=== PATIENT | female | born 1935 | race Caucasian/White ===

== ENCOUNTER 2018-10-11 19:30 | Emergency (ER) | payer MEDICARE, BC ==
[~2018-10-11] VITALS: Ht 162.6 cm; Wt 102.1 kg
[~2018-10-11 19:30] MED LIST: AMLODIPINE BESYL5 MG PO; ATORVASTATIN CA20 MG PO; BACTRIM DS TAB1 EACH PO; DOXYCYCLINE HY100 MG PO; GLUCOVANCE 5-51 EACH PO; LASIX40 MG PO; LISINOPRIL10 MG PO; METOPROLOL TART50 MG PO; PLAVIX75 MG PO
[2018-10-11 21:04] LABS: BASOPHILS # (AUTO) 0.1 (0.0-0.1); BASOPHILS % 0.6 % (0.0-1.0); EOSINOPHILS # (AUTO) 0.2 (0.0-0.4); EOSINOPHILS % 2.5 % (0.0-6.0); HEMOGLOBIN 11.9 g/dL (12.0-16.0); LYMPHOCYTES # (AUTO) 2.3 (1.0-3.2); MEAN CORPUSCULAR HEMOGLOBIN 28.3 pg (28-32); MEAN CORPUSCULAR VOLUME 83.3 fL (81-99); MONOCYTES # (AUTO) 0.8 (0.2-0.8); MONOCYTES % 10.5 % (4.4-11.3); NEUTROPHILS # (AUTO) 4.3 (2.1-6.9); NEUTROPHILS % 55.8 % (38.7-80.0); PLATELET COUNT 233 x10e3/uL (140-360); RED CELL DISTRIBUTION WIDTH 16.9 % (11.7-14.4)
[2018-10-11 21:43] LABS: CLARITY,URINE HAZY (CLEAR); COLOR,URINE YELLOW (YELLOW)
[2018-10-11 21:44] LABS: BILIRUBIN,URINE NEGATIVE (NEGATIVE); KETONES,URINE NEGATIVE (NEGATIVE); LEUKOCYTE ESTERASE ,URINE 1+ (NEGATIVE); NITRITE,URINE NEGATIVE (NEGATIVE); PROTEIN,URINE DIPSTICK NEGATIVE (NEGATIVE); URINE UROBILINOGEN 0.2 mg/dL (0.2 - 1)
--- NOTE | 2018-10-11 21:47 | Diagnostic Imaging Report ---
EXAMINATION: CHEST 2 VIEWS INDICATION: ^ABD PAIN ^[id number] ^2054 ^Y COMPARISON: None available FINDINGS: PA and lateral views TUBES and LINES: Left chest wall single lead cardiac device in place. Distal tip projecting over the right ventricle. Right upper lobe nodular density, likely a calcified granuloma. LUNGS: Lungs are well inflated. Mild central vascular congestion. PLEURA: No pleural effusion or pneumothorax. HEART AND MEDIASTINUM: The cardiomediastinal silhouette is enlarged. Median sternotomy wires and mediastinal surgical clips. Aorta is tortuous. BONES AND SOFT TISSUES: No acute osseous lesion. Soft tissues are unremarkable. UPPER ABDOMEN: No free air under the diaphragm. IMPRESSION: Enlarged cardiomediastinal silhouette and mild central vascular congestion. Signed by: Dr. Santosh Muro MD on 10/11/2018 9:43 PM
[2018-10-11 21:55] LABS: BACTERIA,URINE FEW /HPF; EPITHELIAL CELLS,URINE MODERATE /LPF; RBC,URINE 0-5 /HPF (0-5); WBC,URINE (MAN) 0-5 /HPF (0-5)
[2018-10-11 23:30] LABS: ALANINE AMINOTRANSFERASE 27 IU/L (0-55); ALBUMIN 3.2 g/dL (3.5-5.0); ALBUMIN/GLOBULIN RATIO 0.9 (0.8-2.0); ALKALINE PHOSPHATASE 71 IU/L (40-150); ANION GAP 15.2 mmol/L (8-16); BLOOD UREA NITROGEN 32 mg/dL (7-26); BUN/CREATININE RATIO 25 (6-25); CARBON DIOXIDE 24 mmol/L (22-29); CHLORIDE 96 mmol/L (98-107); CREATINE KINASE 117 IU/L (29-168); CREATININE, SERUM 1.26 mg/dL (0.57-1.11); EST GLOMERULAR FILTRATION RATE 41 ML/MIN (60-); GLUCOSE 325 mg/dL (74-118); POTASSIUM 4.2 mmol/L (3.5-5.1); SODIUM 131 mmol/L (136-145)
[2018-10-12 00:05] VITALS: BP 108/52
== END 2018-10-12 00:19 | disposition home or self-care (01) ==
LOC: ER 19:30
DX: R10.30 Lower abdominal pain, unspecified (principal); K62.5 Hemorrhage of anus and rectum; I10 Essential (primary) hypertension; E11.9 Type 2 diabetes mellitus without complications; F03.90 Unspecified dementia, unspecified severity, without behavioral disturbance, psychotic disturbance, mood disturbance, and anxiety; I69.920 Aphasia following unspecified cerebrovascular disease; I25.2 Old myocardial infarction; Z95.5 Presence of coronary angioplasty implant and graft; Z95.810 Presence of automatic (implantable) cardiac defibrillator
CPT/HCPCS: 36415; 71046; 80053; 81001; 82550; 82553; 84484; 85025; 93005; 99284

== ENCOUNTER 2018-12-04 18:50 | Emergency (ER) | payer MEDICARE, BC ==
[~2018-12-04] VITALS: Ht 162.6 cm; Wt 102.1 kg
--- OUTSIDE RECORDS SUMMARY | 2018-12-04 18:55 | XMS REPORT ---
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 Active Problem Coronary artery disease involving [place] coronary artery of [place] heart without angina pectoris I25.10 Active Assessment Type 2 diabetes mellitus with other circulatory complication, 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 Problem 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 Problem Acute on chronic systolic congestive heart failure I50.23 Active Problem Gastrointestinal hemorrhage associated with chronic gastritis K29.51 Active Problem Cerebrovascular accident (CVA), unspecified mechanism I63.9 Active Problem HTN (hypertension) I10 Active Problem Peptic ulcer disease K27.9 Active Problem Vertigo R42 Active Medications Medication Code System Code Instructions Start Date End Date Status Dosage glipizide [facility] [address] 10 mg orally Twice a day Active 1 tab(s) Results No Known Results Summary Purpose [employer] Submission
--- OUTSIDE RECORDS SUMMARY | 2018-12-04 18:55 | XMS REPORT | Continuity of Care Document ---
Author Author [employer] Address Unknown Phone Unavailable Care Team Providers Care Ux Consultant Name Role Phone [employer] Information Exchange Unavailable Unavailable Problems Problem Status Onset Date Classification Date Reported Comments Source I63.9 CEREBRAL INFARCTION, UNSPECIFIED 06/22/2018 Diagnosis 07/11/2018 [facility]: [facility] [place] [facility] [place] [facility] R41.82 ALTERED MENTAL STATUS, UNSPECIFIED 06/22/2018 Diagnosis 07/11/2018 SN[facility]: [facility] [place] [facility] [place] [facility] I69.322 DYSARTHRIA FOLLOWING CEREBRAL INFARCTION 06/22/2018 Diagnosis 07/11/2018 [facility]: [facility] [place] [facility] [place] [facility] I10 ESSENTIAL HYPERTENSION 06/22/2018 Diagnosis 07/11/2018 [facility]: [facility] [place] [facility] [place] [facility] E11.9 TYPE 2 DIABETES MELLITUS WITHOUT COMPLICATIONS 06/22/2018 Diagnosis 07/11/2018 [facility]: [facility] [place] [facility] [place] [facility] M62.81 MUSCLE WEAKNESS 06/22/2018 Diagnosis 07/11/2018 [facility]: [facility] [place] [facility] [place] [facility] R26.89 OTHER ABNORMALITIES OF GAIT AND MOBILITY 06/22/2018 Diagnosis 07/11/2018 [facility]: [facility] [place] [facility] [place] [facility] R27.9 UNSPECIFIED LACK OF COORDINATION 06/22/2018 Diagnosis 07/11/2018 [facility]: [facility] [place] [facility] [place] [facility] R26.81 UNSTEADINESS ON FEET 06/22/2018 Diagnosis 07/11/2018 [facility]: [facility] [place] [facility] [place] [facility] R48.2 APRAXIA 06/22/2018 Diagnosis 07/11/2018 [facility]: [facility] [place] [facility] [place] [facility] 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 06/22/2018 Diagnosis 07/11/2018 [facility]: [facility] [place] [facility] I48.91 UNSPECIFIED ATRIAL FIBRILLATION 06/22/2018 Diagnosis 07/11/2018 [facility]: [facility] [place] [facility] [place] [facility] E78.5 HYPERLIPIDEMIA, UNSPECIFIED 06/22/2018 Diagnosis 07/11/2018 [facility]: [facility] [place] [facility] [place] [facility] I25.10 ATHEROSCLEROTIC HEART DISEASE OF [place] CORONARY ARTERY WITHOUT ANGINA PECTORIS 06/22/2018 Diagnosis 07/11/2018 [facility]: [facility] [place] [facility] R56.9 UNSPECIFIED CONVULSIONS 06/22/2018 Diagnosis 07/11/2018 [facility]: [facility] [place] [facility] Cardiac pacemaker in situ Active Problem 11/12/2018 [facility] Type 2 diabetes mellitus with other circulatory complication, without long-term current use of insulin Active Problem 11/12/2018 [facility] Coronary artery disease involving [place] coronary artery of [place] heart without angina pectoris Active Problem 11/12/2018 [facility] 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 Active Problem 11/12/2018 [facility] Acute on chronic systolic congestive heart failure Active Problem 11/12/2018 [facility] Gastrointestinal hemorrhage associated with chronic gastritis Active Problem 11/12/2018 [facility] Cerebrovascular accident , unspecified mechanism Active Problem 11/12/2018 [facility] HTN Active Problem 11/12/2018 [facility] Peptic ulcer disease Active Problem 11/12/2018 [facility] Vertigo Active Problem 11/12/2018 [facility] Type 2 diabetes mellitus without complications Active Problem 05/27/2017 [facility] Metabolic disorder, unspecified Active Problem 11/12/2018 [facility] A-fib Active Problem 11/12/2018 [facility] Essential hypertension Active Diagnosis 09/02/2018 [facility] Localized edema Active Problem 11/12/2018 [facility] Cough Active Diagnosis 03/19/2017 [facility] Diabetic polyneuropathy associated with type 2 diabetes mellitus Active Problem 11/12/2018 [facility] S/P cholecystectomy Active Problem 11/12/2018 [facility] Iron deficiency anemia, unspecified iron deficiency anemia type Active Problem 11/12/2018 [facility] Late effect of cerebrovascular accident Active Problem 11/12/2018 [facility] Flu vaccine need Active Problem 11/12/2018 [facility] Other obesity due to excess calories Active Problem 11/12/2018 [facility] Aphasia as late effect of cerebrovascular accident Active Problem 11/12/2018 [facility] Body mass index of 30.0-30.9 in adult Active Problem 11/12/2018 [facility] Constipated Active Problem 11/12/2018 [facility] Urinary frequency Active Diagnosis 09/24/2017 [facility] 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 Active Problem 11/12/2018 [facility] Acute cerebrovascular accident Active Diagnosis 01/08/2018 [facility] Iron deficiency anemia Active Diagnosis 01/08/2018 [facility] Acute constipation Active Diagnosis 07/02/2018 [facility] Expressive aphasia Active Diagnosis 09/02/2018 [facility] Chronic atrial fibrillation Active Diagnosis 09/02/2018 [facility] Type 2 diabetes mellitus with hyperglycemia Active Diagnosis 09/02/2018 [facility] Candidal intertrigo Active Diagnosis 06/18/2018 [facility] Bloody stool Active Diagnosis 06/18/2018 [facility] Cystitis Active Diagnosis 06/18/2018 [facility] Medications Medication Details Route Status Patient Instructions Ordering Provider Order Date Source spironolactone 1 tab(s) orally Active 25 mg orally once a day LATTHE 11/11/2018 [facility] senna 1 tab(s) orally Active 8.6 mg orally once a day (at bedtime) LATTHE 07/13/2018 [facility] Coumadin Tablet 5 MG Give 1 tablet by mouth one time a day for blood thinner Oral Active 07/10/2018 [facility]: [facility] [place] [facility] Insulin NPH (Human) (Isophane) Suspension 100 UNIT/ML Inject 10 unit subcutaneously one time a day for dm with dinner Subcutaneous Active 07/01/2018 [facility]: [facility] [place] [facility] Coumadin Tablet 4 MG Give 1 tablet by mouth one time a day for blood thinner Oral Active 06/29/2018 [facility]: [facility] [place] [facility] Carvedilol Tablet 3.125 MG Give 1 tablet by mouth every 12 hours for CAD Hold for SBP < 110 or HR < 60 Oral Active 06/26/2018 [facility]: [facility] [place] [facility] Fish Oil Capsule 1000 MG Give 1 capsule by mouth one time a day for supplement Oral Active 06/24/2018 [facility]: [facility] [place] [facility] Lyrica Capsule 25 MG Give 1 capsule by mouth one time a day for neuropathy Oral Active 06/24/2018 [facility]: [facility] [place] [facility] Coumadin Tablet 3 MG Give 1 tablet via G-Tube one time a day for blood thinner Oral Active 06/23/2018 [place] [facility] [place] [facility] Keppra Tablet 750 MG Give 1 tablet by mouth two times a day for seizure Oral Active 06/23/2018 [place] [facility] [place] [facility] Lyrica Capsule 25 MG Give 1 capsule by mouth one time a day for CVA Oral Inactive 06/23/2018 [place]: [facility] [place] [facility] FerrouSul Tablet 325 (65 Fe) MG Give 1 tablet by mouth one time a day for Anemia Oral Active 06/23/2018 [place] [facility] [place] [facility] Fish Oil Capsule 1000 MG Give 1 capsule by mouth one time a day for CVA Oral Inactive 06/23/2018 [place]: [facility] [place] [facility] Co Q-10 Capsule Give 1 capsule by mouth one time a day for Vitamin Oral Active 06/23/2018 SN[place]: [facility] [place] [facility] Triamterene-HCTZ Capsule 37.5-25 MG Give 1 capsule by mouth one time a day for HTN Oral Active 06/23/2018 [facility]: [facility] [place] [facility] Furosemide Tablet 40 MG Give 1 tablet by mouth one time a day for HTN Oral Active 06/23/2018 [place]: [facility] [place] [facility] Keppra Tablet 750 MG Give 1 tablet by mouth two times a day for CVA Oral Inactive 06/23/2018 [facility]: [facility] [place] [facility] HumuLIN N Suspension 100 UNIT/ML Inject 23 unit subcutaneously one time a day for Diabetes Subcutaneous Active 06/23/2018 [facility]: [facility] [place] [facility] Carvedilol Tablet 3.125 MG Give 1 tablet by mouth every 12 hours for CAD Oral Active 06/23/2018 [place]: [facility] [place] [facility] Insulin Lispro Solution Cartridge 100 UNIT/ML Inject as per sliding scale: if 0 - 150=0; 151 - 200=2; 201 - 250=4; 251 - 300=6; 301 - 350=8; 351 - 400=10; 401 - 999=12 GIVE 12 UNIT AND NOTIFY MD subcutaneously before meals and at bedtime for Diabetes Mellitus Subcutaneous Active 06/23/2018 SN[place]: [facility] [place] [facility] Atorvastatin Calcium Tablet 40 MG Give 1 tablet by mouth at bedtime for Cholesterol Oral Active 06/23/2018 SNF: [facility] Pantoprazole Sodium Tablet Delayed Release 40 MG Give 1 tablet by mouth every 48 hours for GERD Oral Active 06/23/2018 SNF: [facility] lisinopril 1 tab(s) orally [facility] 2[facility] cephalexin 1 cap(s) orally Active 500 mg orally every 12 hours LATTHE 06/10/2018 [facility] Lotrimin AF Cream 1 torsten applied topically Active 1% applied topically 2 times a day LATTHE 06/10/2018 [facility] lisinopril 1 tab(s) orally Active 5 mg orally once a day LATTHE 06/10/2018 [facility] fluconazole 1 tab(s) orally Active 150 mg orally once LATTHE 06/10/2018 [facility] glipizide 1 tab(s) orally Active 10 mg orally Twice a day LATTHE 01/10/2018 [facility] Colace 1 cap(s) orally Active sodium 100 mg orally Once daily LATTHE 01/05/2018 [facility] Coreg 1 tab(s) orally Active 3.125 mg orally 2 times a day LATTHE 09/17/2017 [facility] simethicone 1 tab(s) chewed Active 80 mg chewed 4 times a day (after meals and at bedtime) LATTHE 09/17/2017 [facility] Warfarin Sodium Take one half orally Active 1 mg orally along with the 6 mg tablet once a day for LATTHE 07/02/2017 [facility] furosemide 1 tab(s) orally Active 20 mg orally once a day LATTHE 06/18/2017 [facility] gabapentin 1 cap(s) orally Active 300 mg orally Once at night LATTHE 06/18/2017 [facility] Coumadin 1 tab(s) orally Active 6 mg orally once a day LAT[facility] 04/17/2017 [facility] benzonatate 1 cap(s) orally Active 100 [facility] Warfarin Sodium 1 tab(s) orally Active 4 mg orally once a day LATTHE 02/06/2017 [facility] hydrochlorothiazide-triamterene 1 cap(s) orally Active 25 mg- 37.5 mg orally once a day LATTHE 01/15/2017 [facility] Coumadin 1 tab(s) orally Active 2 mg orally once a day LATTHE 01/15/2017 [facility] Xarelto 1 tab(s) orally Active 10 mg orally once a day LATTHE 11/18/2016 [facility] furosemide 1 tab(s) orally Active 20 mg orally once a day LATTHE 11/18/2016 [facility] Xarelto 1 tab(s) orally Active 10 mg orally once a day LAT[facility] 11/18/2016 [facility] furosemide 1 tab(s) orally Active 20 mg orally once a day LATTHE 11/18/2016 [facility] lisinopril 1 tab(s) orally Active 5 mg orally once a day LATTHE 10/28/2016 [facility] Humulin N 20 units subcutaneously Active human recombinant 100 units/mL subcutaneously Once daily LATTHE 10/28/2016 [facility] Humulin N 20 units subcutaneously Active human recombinant 100 units/mL subcutaneously Once daily LATTHE 10/28/2016 [facility] lisinopril 1 tab(s) orally Active 5 mg orally once a day LATTHE 10/28/2016 [facility] Levemir 20 units subcutaneously Active 100 units/mL subcutaneously Once daily LATTHE 09/30/2016 [facility] Januvia 1 tab(s) orally Active 100 mg orally once a day LATTHE 09/02/2016 [facility] Ultram 1 tab(s) orally Active 50 mg orally every 6 hours PRN LATTHE 07/15/2016 [facility] Ultram 1 tab(s) orally Active 50 mg orally every 6 hours PRN LATTHE 07/15/2016 [facility] furosemide 1 tab(s) orally Active 40 mg orally once a day LAT[facility] 06/24/2016 [facility] furosemide 1 tab(s) orally Active 40 mg orally once a day LATTHE 06/24/2016 [facility] Plavix 1 tab(s) orally No Longer Active 75 mg orally once a day LATTHE 06/24/2016 [facility] pantoprazole 1 tab(s) orally Active 40 mg orally once a day LAT[facility] 05/27/2016 [facility] pantoprazole 1 tab(s) orally Active 40 mg orally once a day [facility] 05/27/2016 [facility] furosemide 1 tab(s) orally No Longer Active 20 [facility] Eliquis 1 tab(s) orally Active 2.5 mg orally 2 times a day [facility] 04/24/2016 [facility] levetiracetam 1 tab(s) orally Active 500 mg orally 2 times a day [facility] 09/09/2014 [facility] levetiracetam 1 tab(s) orally Active 500 mg orally 2 times a day [facility] 09/09/2014 [facility] levothyroxine 1 tab(s) orally Active 25 mcg (0.025 mg) orally once a day [facility] 05/03/2014 [facility] levothyroxine 1 tab(s) orally Active 25 mcg (0.025 mg) orally once a day [facility] 05/03/2014 [facility] Eliquis 1 tab(s) orally Active 2.5 mg orally 2 times a day [facility] MiraLax 17 g orally Active - orally once a day [facility] ferrous fumarate 1 tab(s) orally Active 325 mg orally once a day [facility] glipizide 1 tab(s) orally Active 10 mg orally Twice a day [facility] atorvastatin 1 tab(s) orally Active 40 mg orally once a day (at bedtime) [facility] Co Q-10 1 cap(s) orally Active 100 mg orally once a day [facility] Lyrica 1 cap(s) orally Active 25 mg orally once a day [facility] Savaysa 1 tab(s) orally Active 30 mg orally once a day [facility] gabapentin 1 cap(s) orally Active 300 mg orally Once daily [facility] Januvia 1 tab(s) orally Active 50 mg orally once a day [facility] furosemide 1 tab(s) orally Active 20 mg orally once a day [facility] Coumadin 1 tab(s) orally Active 5 mg orally once a day [facility] atorvastatin 1 tab(s) orally Active 40 mg orally once a day (at bedtime) [facility] gabapentin 1 cap(s) orally Active 300 mg orally Once daily [facility] Eliquis 1 tab(s) orally Active 2.5 mg orally 2 times a day [facility] ferrous fumarate 1 tab(s) orally Active 325 mg orally once a day [facility] Lyrica 1 cap(s) orally Active 25 mg orally once a day [facility] Co Q-10 1 cap(s) orally Active 100 mg orally once a day [facility] furosemide 1 tab(s) orally Active 40 mg orally once a day [facility] glipizide 1 tab(s) orally Active 10 mg orally Twice a day [facility] MiraLax 17 g orally Active - orally once a day [facility] Coumadin 1 tab(s) orally Active 6 mg orally once a day [facility] Lyrica TAKE 1 CAPSULE BY MOUTH ONCE DAILY NA Active 25MG [facility] Humulin N INJECT 20 UNITS SUBCUTANEOUSLY ONCE DAILY NA Active 100U/ML [facility] levetiracetam 1 tab(s) orally Active 500 mg orally 2 times a day [facility] lisinopril 1 tab(s) orally Active 10 mg orally once a day [facility] Xarelto 1 tab(s) orally Active 15 mg orally once a day (in the evening) [facility] Fish Oil 1 cap(s) orally Active 1200 mg orally Once daily [facility] spironolactone 1 tab(s) orally Active 25 mg orally Once daily [facility] Fish Oil 1 cap(s) orally Active 1200 mg orally Once daily [facility] levetiracetam TAKE 1 TABLET BY MOUTH TWICE DAILY orally Active 750 mg orally 2 times a day [facility] triamterene/hctz 1 tab(s) orally Active 25 mg-37.5 mg orally once a day [facility] levetiracetam 1 tab(s) orally Active 750 mg orally 2 times a day [facility] Coumadin 1 tab(s) orally Active 4 mg orally once a day [facility] atorvastatin 1 tab(s) orally Active 40 mg orally once a day [facility] lisinopril 1 tab(s) orally Active 2.5 mg orally once a day [facility] triamterene/hctz TAKE 1 TABLET BY MOUTH ONCE DAILY NA Active 25 mg-37.5 mg [facility] Coumadin 1 tab(s) orally Active 6 mg orally once a day [facility] furosemide 1 tab(s) orally No Longer Active 40 mg orally once a day [facility] Plavix 1 tab(s) orally No Longer Active 75 mg orally once a day [facility] Allergies, Adverse Reactions, Alerts Substance Category Reaction Severity Reaction type Status Date Reported Comments Source Gabapentin 06/22/2018 [facility]: [facility] [place] [facility] [place] [facility] Metformin 06/22/2018 [facility]: [facility] [place] [facility] [place] [facility] Penicillins 06/22/2018 [facility]: [facility] [place] [facility] penicillin Adverse Reaction hives Adverse Reaction Active 08/26/2018 [facility] Immunizations Immunization Date Given Site Status Last Updated Comments Source [facility]FL[facility] MEDICARE 04/06/2018 [facility] 06/18/2017 completed [facility] MEDICARE 04/24/2016 completed [facility] Results Order Name Results Value Reference Range Date Interpretation Comments Source Blood sugar Blood sugar 172 07/11/2018 [facility]: [facility] [place] [facility] Blood sugar Blood sugar 172 07/11/2018 [facility]: [facility] [place] [facility] [place] [facility] Blood sugar Blood sugar 269 07/11/2018 [facility]: [facility] [place] [facility] Blood sugar Blood sugar 170 07/10/2018 [facility]: [facility] [place] [facility] Blood sugar Blood sugar 204 07/10/2018 [facility] [place] [facility] Blood sugar Blood sugar 183 07/10/2018 [facility] [place] [facility] Blood sugar Blood sugar 183 07/10/2018 [facility] [place] [facility] Blood sugar Blood sugar 168 07/10/2018 [facility] [place] [facility] [place] [facility] Blood sugar Blood sugar 160 07/09/2018 [facility] [place] [facility] Blood sugar Blood sugar 167 07/09/2018 [facility] [place] [facility] Blood sugar Blood sugar 137 07/09/2018 [facility] [place] [facility] Blood sugar Blood sugar 137 07/09/2018 [facility] [place] [facility] [place] [facility] Blood sugar Blood sugar 183 07/09/2018 [facility] [place] [facility] [place] [facility] Blood sugar Blood sugar 290 07/08/2018 [facility] [place] [facility] Blood sugar Blood sugar 175 07/08/2018 [facility] [place] [facility] [place] [facility] Blood sugar Blood sugar 139 07/08/2018 [facility] [place] [facility] [place] [facility] Blood sugar Blood sugar 215 07/08/2018 [facility] [place] [facility] [place] [facility] Blood sugar Blood sugar 192 07/07/2018 [facility] [place] [facility] [place] [facility] Blood sugar Blood sugar 148 07/07/2018 [facility] [place] [facility] [place] [facility] Blood sugar Blood sugar 119 07/07/2018 [facility] [place] [facility] [place] [facility] Blood sugar Blood sugar 119 07/07/2018 [facility] [place] [facility] [place] [facility] Blood sugar Blood sugar 251 07/07/2018 [facility] [place] [facility] [place] [facility] Blood sugar Blood sugar 212 07/06/2018 [facility] [place] [facility] [place] [facility] Blood sugar Blood sugar 224 07/06/2018 [facility] [place] [facility] [place] [facility] Blood sugar Blood sugar 129 07/06/2018 [facility] [place] [facility] Blood sugar Blood sugar 129 07/06/2018 [facility] [place] [facility] [place] [facility] Blood sugar Blood sugar 205 07/06/2018 [facility] [place] [facility] [place] [facility] Blood sugar Blood sugar 215 07/05/2018 [facility] [place] [facility] [place] [facility] Blood sugar Blood sugar 198 07/05/2018 [facility] [place] [facility] [place] [facility] Blood sugar Blood sugar 163 07/05/2018 [facility] [place] [facility] [place] [facility] Blood sugar Blood sugar 163 07/05/2018 [facility] [place] [facility] [place] [facility] Blood sugar Blood sugar 218 07/05/2018 [facility] [place] [facility] [place] [facility] Blood sugar Blood sugar 318 07/04/2018 [facility] [place] [facility] [place] [facility] Blood sugar Blood sugar 192 07/04/2018 [facility] [place] [facility] [place] [facility] Blood sugar Blood sugar 175 07/04/2018 [facility] [place] [facility] [place] [facility] Blood sugar Blood sugar 304 07/04/2018 [facility] [place] [facility] [place] [facility] Blood sugar Blood sugar 134 07/03/2018 [facility] [place] [facility] [place] [facility] Blood sugar Blood sugar 296 07/03/2018 [facility] [place] [facility] [place] [facility] Blood sugar Blood sugar 177 07/03/2018 [facility] [place] [facility] [place] [facility] Blood sugar Blood sugar 177 07/03/2018 [facility] [place] [facility] [place] [facility] Blood sugar Blood sugar 174 07/03/2018 [facility] [place] [facility] [place] [facility] Blood sugar Blood sugar 270 07/02/2018 [facility] [place] [facility] [place] [facility] Blood sugar Blood sugar 150 07/02/2018 [facility] [place] [facility] [place] [facility] Blood sugar Blood sugar 119 07/02/2018 [facility] [place] [facility] [place] [facility] Blood sugar Blood sugar 119 07/02/2018 [facility] [place] [facility] [place] [facility] Blood sugar Blood sugar 253 07/02/2018 [facility] [place] [facility] [place] [facility] Blood sugar Blood sugar 314 07/01/2018 [facility] [place] [facility] [place] [facility] Blood sugar Blood sugar 216 07/01/2018 [facility] [place] [facility] [place] [facility] Blood sugar Blood sugar 226 07/01/2018 [facility] [place] [facility] [place] [facility] Blood sugar Blood sugar 226 07/01/2018 [facility] [place] [facility] [place] [facility] Blood sugar Blood sugar 202 07/01/2018 [facility]: [facility] Blood sugar Blood sugar 325 06/30/2018 [facility]: [facility] Blood sugar Blood sugar 289 06/30/2018 [facility]: [facility] Blood sugar Blood sugar 219 06/30/2018 [facility]: [facility] Blood sugar Blood sugar 219 06/30/2018 [facility]: [facility] Blood sugar Blood sugar 217 06/30/2018 [facility]: [facility] Blood sugar Blood sugar 240 06[facility]29/2018 [facility]: [facility] Blood sugar Blood sugar 174 06/29/2018 [facility]: [facility] Blood sugar Blood sugar 218 06/29/2018 [facility]: [facility] Blood sugar Blood sugar 218 06/29/2018 [facility]: [facility] Blood sugar Blood sugar 249 06/29/2018 [facility]: [facility] Blood sugar Blood sugar 224 06/28/2018 [facility]: [facility] Blood sugar Blood sugar 275 06/28/2018 [facility]: [facility] Blood sugar Blood sugar 190 06/28/2018 [facility]: [facility] Blood sugar Blood sugar 205 06/28/2018 [facility]: [facility] Blood sugar Blood sugar 212 06/27/2018 [facility]: [facility] Blood sugar Blood sugar 238 06/27/2018 [facility]: [facility] Blood sugar Blood sugar 165 06/27/2018 [facility]: [facility] Blood sugar Blood sugar 165 06/27/2018 [facility]: [facility] Blood sugar Blood sugar 262 06/27/2018 [facility]: [facility] Blood sugar Blood sugar 232 06/26/2018 [facility]: [facility] Blood sugar Blood sugar 231 06/26/2018 [facility]: [facility] Blood sugar Blood sugar 192 06/26/2018 [facility]: [facility] Blood sugar Blood sugar 192 06/26/2018 [facility]: [facility] Blood sugar Blood sugar 243 06/25/2018 [facility]: [facility] Blood sugar Blood sugar 172 06/25/2018 [facility]: [facility] Blood sugar Blood sugar 188 06/25/2018 [facility]: [facility] Blood sugar Blood sugar 188 06/25/2018 [facility]: [facility] Blood sugar Blood sugar 240 06/25/2018 [facility]: [facility] Blood sugar Blood sugar 192 06/25/2018 [facility]: [facility] Blood sugar Blood sugar 285 06/24/2018 [facility]: [facility] Blood sugar Blood sugar 182 06/24/2018 [facility]: [facility] Blood sugar Blood sugar 182 06/24/2018 [facility]: [facility] Blood sugar Blood sugar 238 06/24/2018 [facility]: [facility] Blood sugar Blood sugar 313 06/23/2018 [facility]: [facility] Blood sugar Blood sugar 300 06/23/2018 [facility]: [facility] Blood sugar Blood sugar 198 06/23/2018 [facility]: [facility] Blood sugar Blood sugar 212 06/23/2018 [facility]: [facility] Pathology Reports No Data Provided for This Section Diagnostic Reports No Data Provided for This Section Consultation Notes No Data Provided for This Section Discharge Summaries No Data Provided for This Section History and Physicals No Data Provided for This Section Vital Signs Vital Sign Value Date Comments Source Weight 189.5 08/26/2018 [facility] Height 64 08/26/2018 [facility] Respitory Rate 20 08/26/2018 [facility] Diastolic (mm Hg) 77 08/26/2018 [facility] Systolic (mm Hg) 133 08/26/2018 [facility] Heart Rate 81 08/26/2018 [facility] Weight 190 07/20/2018 [facility] Height 64 07/20/2018 [facility] Respitory Rate 20 07/20/2018 [facility] Diastolic (mm Hg) 80 07/20/2018 [facility] Systolic (mm Hg) 146 07/20/2018 [facility] Heart Rate 82 07/20/2018 [facility] Systolic (mm Hg) 129 07/11/2018 [facility]: [facility] Diastolic (mm Hg) 60 07/11/2018 [facility]: [facility] Heart Rate 87 {beats}/min 07/11/2018 [facility]: [facility] Systolic (mm Hg) 122 07/11/2018 [facility]: [facility] Diastolic (mm Hg) 77 07/11/2018 [facility]: [facility] Heart Rate 90 {beats}/min 07/11/2018 [facility]: [facility] Systolic (mm Hg) 137 07/10/2018 [facility]: [facility] Diastolic (mm Hg) 67 07/10/2018 [facility]: [facility] Heart Rate 90 {beats}/min 07/10/2018 [facility]: [facility] Systolic (mm Hg) 131 07/10/2018 [facility]: [facility] Diastolic (mm Hg) 75 07/10/2018 [facility]: [facility] Heart Rate 75 {beats}/min 07/10/2018 [facility]: [facility] Systolic (mm Hg) 142 07/09/2018 [facility]: [facility] Diastolic (mm Hg) 83 07/09/2018 [facility]: [facility] Heart Rate 88 {beats}/min 07/09/2018 [facility]: [facility] Systolic (mm Hg) 115 07/09/2018 [facility]: [facility] Diastolic (mm Hg) 60 07/09/2018 [facility]: [facility] Heart Rate 75 {beats}/min 07/09/2018 [facility]: [facility] Systolic (mm Hg) 126 07/08/2018 [facility]: [facility] Diastolic (mm Hg) 67 07/08/2018 [facility]: [facility] Heart Rate 80 {beats}/min 07/08/2018 [facility]: [facility] Systolic (mm Hg) 105 07/07/2018 [facility]: [facility] Diastolic (mm Hg) 63 07/07/2018 [facility]: [facility] Heart Rate 78 {beats}/min 07/07/2018 [facility]: [facility] Systolic (mm Hg) 126 07/06/2018 [facility]: [facility] Diastolic (mm Hg) 74 07/06/2018 [facility]: [facility] Heart Rate 81 {beats}/min 07/06/2018 [facility]: [facility] Systolic (mm Hg) 129 07/06/2018 [facility]: [facility] Diastolic (mm Hg) 68 07/06/2018 [facility]: [facility] Heart Rate 84 {beats}/min 07/06/2018 [facility]: [facility] Systolic (mm Hg) 122 07/05/2018 [facility]: [facility] Diastolic (mm Hg) 65 07/05/2018 [facility]: [facility] Heart Rate 70 {beats}/min 07/05/2018 [facility]: [facility] Systolic (mm Hg) 129 07/05/2018 [facility]: [facility] Diastolic (mm Hg) 62 07/05/2018 [facility]: [facility] Heart Rate 78 {beats}/min 07/05/2018 [facility]: [facility] Systolic (mm Hg) 118 07/04/2018 [facility]: [facility] Diastolic (mm Hg) 89 07/04/2018 [facility]: [facility] Heart Rate 71 {beats}/min 07/04/2018 [facility]: [facility] Systolic (mm Hg) 132 07/03/2018 [facility]: [facility] Diastolic (mm Hg) 73 07/03/2018 [facility]: [facility] Heart Rate 84 {beats}/min 07/03/2018 [facility]: [facility] Systolic (mm Hg) 126 07/02/2018 [facility]: [facility] Diastolic (mm Hg) 68 07/02/2018 [facility]: [facility] Heart Rate 71 {beats}/min 07/02/2018 [facility]: [facility] Systolic (mm Hg) 122 07/02/2018 [facility]: [facility] Diastolic (mm Hg) 60 07/02/2018 [facility]: [facility] Heart Rate 73 {beats}/min 07/02/2018 [facility]: [facility] Systolic (mm Hg) 124 07/01/2018 [facility]: [facility] Diastolic (mm Hg) 74 07/01/2018 [facility]: [facility] Heart Rate 81 {beats}/min 07/01/2018 [facility]: [facility] Systolic (mm Hg) 118 07/01/2018 [facility]: [facility] Diastolic (mm Hg) 82 07/01/2018 [facility]: [facility] Heart Rate 83 {beats}/min 07/01/2018 [facility]: [facility] Systolic (mm Hg) 115 06/30/2018 [facility]: [facility] Diastolic (mm Hg) 81 06/30/2018 [facility]: [facility] Heart Rate 81 {beats}/min 06/30/2018 [facility]: [facility] Systolic (mm Hg) 117 06/29/2018 [facility]: [facility] Diastolic (mm Hg) 60 06/29/2018 [facility]: [facility] Heart Rate 62 {beats}/min 06/29/2018 [facility]: [facility] Systolic (mm Hg) 118 06/29/2018 [facility]: [facility] Diastolic (mm Hg) 61 06/29/2018 [facility]: [facility] Heart Rate 69 {beats}/min 06/29/2018 [facility]: [facility] Systolic (mm Hg) 128 06/28/2018 [facility]: [facility] Diastolic (mm Hg) 66 06/28/2018 [facility]: [facility] Heart Rate 76 {beats}/min 06/28/2018 [facility]: [facility] Systolic (mm Hg) 139 06/28/2018 [facility]: [facility] Diastolic (mm Hg) 77 06/28/2018 [facility]: [facility] Heart Rate 81 {beats}/min 06/28/2018 [facility]: [facility] Systolic (mm Hg) 128 06/27/2018 [facility]: [facility] Diastolic (mm Hg) 71 06/27/2018 [facility]: [facility] Heart Rate 84 {beats}/min 06/27/2018 [facility]: [facility] Systolic (mm Hg) 117 06/26/2018 [facility]: [facility] Diastolic (mm Hg) 65 06/26/2018 [facility]: [facility] Heart Rate 80 {beats}/min 06/26/2018 [facility]: [facility] Systolic (mm Hg) 116 06/26/2018 [facility]: [facility] Diastolic (mm Hg) 63 06/26/2018 [facility]: [facility] Heart Rate 75 {beats}/min 06/26/2018 [facility]: [facility] Systolic (mm Hg) 116 06/25/2018 [facility]: [facility] Diastolic (mm Hg) 88 06/25/2018 [facility]: [facility] Heart Rate 86 {beats}/min 06/25/2018 [facility]: [facility] Systolic (mm Hg) 124 06/25/2018 [facility]: [facility] Diastolic (mm Hg) 64 06/25/2018 [facility]: [facility] Heart Rate 61 {beats}/min 06/25/2018 [facility]: [facility] Systolic (mm Hg) 117 06/24/2018 [facility]: [facility] Diastolic (mm Hg) 62 06/24/2018 [facility]: [facility] Heart Rate 82 {beats}/min 06/24/2018 [facility]: [facility] Systolic (mm Hg) 156 06/24/2018 [facility]: [facility] Diastolic (mm Hg) 71 06/24/2018 [facility]: [facility] Heart Rate 77 {beats}/min 06/24/2018 [facility]: [facility] Weight 189.8 06/23/2018 [facility]: [facility] Height 63 06/23/2018 [facility]: [facility] Weight 198 06/10/2018 [facility] Height 64 06/10/2018 [facility] Respitory Rate 20 06/10/2018 [facility] Diastolic (mm Hg) 86 06/10/2018 [facility] Systolic (mm Hg) 160 06/10/2018 [facility] Heart Rate 95 06/10/2018 [facility] Weight 202 04/06/2018 [facility] Height 64 04/06/2018 [facility] Respitory Rate 20 04/06/2018 [facility] Diastolic (mm Hg) 94 04/06/2018 [facility] Systolic (mm Hg) 151 04/06/2018 [facility] Heart Rate 77 04/06/2018 [facility] Weight 203 01/16/2018 [facility] Height 64 01/16/2018 [facility] Respitory Rate 20 01/16/2018 [facility] Diastolic (mm Hg) 78 01/16/2018 [facility] Systolic (mm Hg) 144 01/16/2018 [facility] Heart Rate 84 01/16/2018 [facility] Weight 203 01/05/2018 [facility] Height 64 01/05/2018 [facility] Respitory Rate 20 01/05/2018 [facility] Diastolic (mm Hg) 78 01/05/2018 [facility] Systolic (mm Hg) 136 01/05/2018 [facility] Heart Rate 78 01/05/2018 [facility] Weight 198 12/08/2017 [facility] Height 64 12/08/2017 [facility] Respitory Rate 20 12/08/2017 [facility] Diastolic (mm Hg) 72 12/08/2017 [facility] Systolic (mm Hg) 121 12/08/2017 [facility] Heart Rate 91 12/08/2017 [facility] Heart Rate 95 09/17/2017 [facility] Height 64 09/17/2017 [facility] Respitory Rate 20 09/17/2017 [facility] Diastolic (mm Hg) 86 09/17/2017 [facility] Systolic (mm Hg) 156 09/17/2017 [facility] Weight 204.5 07/16/2017 [facility] Height 64 07/16/2017 [facility] Respitory Rate 20 07/16/2017 [facility] Diastolic (mm Hg) 83 07/16/2017 [facility] Systolic (mm Hg) 150 07/16/2017 [facility] Heart Rate 79 07/16/2017 [facility] Weight 207.5 06/18/2017 [facility] Height 64 06/18/2017 [facility] Respitory Rate 20 06/18/2017 [facility] Diastolic (mm Hg) 88 06/18/2017 [facility] Systolic (mm Hg) 156 06/18/2017 [facility] Heart Rate 92 06/18/2017 [facility] Weight 199 04/09/2017 [facility] Height 64 04/09/2017 [facility] Respitory Rate 20 04/09/2017 [facility] Diastolic (mm Hg) 74 04/09/2017 [facility] Systolic (mm Hg) 122 04/09/2017 [facility] Heart Rate 95 04/09/2017 [facility] Weight 196 03/12/2017 [facility] Height 64 03/12/2017 [facility] Respitory Rate 20 03/12/2017 [facility] Diastolic (mm Hg) 63 03/12/2017 [facility] Systolic (mm Hg) 109 03/12/2017 [facility] Heart Rate 93 03/12/2017 [facility] Height 64 01/15/2017 [facility] Weight 203 01/15/2017 [facility] Respitory Rate 20 01/15/2017 [facility] Diastolic (mm Hg) 76 01/15/2017 [facility] Systolic (mm Hg) 115 01/15/2017 [facility] Heart Rate 62 01/15/2017 [facility] Height 64 12/16/2016 [facility] Weight 202 12/16/2016 [facility] Respitory Rate 20 12/16/2016 [facility] Diastolic (mm Hg) 79 12/16/2016 [facility] Systolic (mm Hg) 139 12/16/2016 [facility] Heart Rate 91 12/16/2016 [facility] Height 64 11/18/2016 [facility] Weight 204 11/18/2016 [facility] Respitory Rate 20 11/18/2016 [facility] Diastolic (mm Hg) 72 11/18/2016 [facility] Systolic (mm Hg) 138 11/18/2016 [facility] Heart Rate 82 11/18/2016 [facility] Height 64 10/28/2016 [facility] Weight 202 10/28/2016 [facility] Respitory Rate 20 10/28/2016 [facility] Diastolic (mm Hg) 86 10/28/2016 [facility] Systolic (mm Hg) 162 10/28/2016 [facility] Heart Rate 84 10/28/2016 [facility] Height 64 10/09/2016 [facility] Weight 202 10/09/2016 [facility] Respitory Rate 20 10/09/2016 [facility] Diastolic (mm Hg) 74 10/09/2016 [facility] Systolic (mm Hg) 135 10/09/2016 [facility] Heart Rate 67 10/09/2016 [facility] Height 64 09/30/2016 [facility] Weight 202 09/30/2016 [facility] Respitory Rate 18 09/30/2016 [facility] Diastolic (mm Hg) 88 09/30/2016 [facility] Systolic (mm Hg) 132 09/30/2016 [facility] Heart Rate 70 09/30/2016 [facility] Height 64 09/02/2016 [facility] Weight 207 09/02/2016 [facility] Respitory Rate 18 09/02/2016 [facility] Diastolic (mm Hg) 72 09/02/2016 [facility] Systolic (mm Hg) 131 09/02/2016 [facility] Heart Rate 65 09/02/2016 [facility] Height 64 08/12/2016 [facility] Weight 202 08/12/2016 [facility] Respitory Rate 18 08/12/2016 [facility] Diastolic (mm Hg) 74 08/12/2016 [facility] Systolic (mm Hg) 122 08/12/2016 [facility] Heart Rate 65 08/12/2016 [facility] Height 64 06/24/2016 [facility] Weight 198 06/24/2016 [facility] Respitory Rate 18 06/24/2016 [facility] Diastolic (mm Hg) 72 06/24/2016 [facility] Systolic (mm Hg) 142 06/24/2016 [facility] Heart Rate 66 06/24/2016 [facility] Height 64 05/27/2016 [facility] Weight 203 05/27/2016 [facility] Respitory Rate 18 05/27/2016 [facility] Diastolic (mm Hg) 75 05/27/2016 [facility] Systolic (mm Hg) 177 05/27/2016 [facility] Heart Rate 62 05/27/2016 [facility] Height 64 04/29/2016 [facility] Weight 203 04/29/2016 [facility] Respitory Rate 18 04/29/2016 [facility] Diastolic (mm Hg) 76 04/29/2016 [facility] Systolic (mm Hg) 146 04/29/2016 [facility] Heart Rate 71 04/29/2016 [facility] Height 64 04/24/2016 [facility] Weight 200 04/24/2016 [facility] Respitory Rate 18 04/24/2016 [facility] Diastolic (mm Hg) 74 04/24/2016 [facility] Systolic (mm Hg) 160 04/24/2016 [facility] Heart Rate 65 04/24/2016 [facility] Encounters Location Location Details Encounter Type Encounter Number Reason For Visit Attending Provider ADM Date DC Date Status Source [facility] Unknown [id number] 04/24/2016 04/24/2016 [facility] Unknown [id number] 04/24/2016 04/24/2016 [facility] Unknown [id number] 04/24/2016 04/24/2016 [facility] Unknown [id number] 04/24/2016 04/24/2016 [facility] Unknown [id number] 04/24/2016 04/24/2016 [facility] [id number] 04/24/2016 04/24/2016 [facility] [id number] 04/29/2016 04/29/2016 [facility] [id number] 04/29/2016 04/29/2016 [facility] Unknown [id number] 04/29/2016 04/29/2016 [facility] Unknown [id number] 04/29/2016 04/29/2016 [facility] [id number] 04/29/2016 04/29/2016 [facility] [id number] 05/27/2016 05/27/2016 [facility] [id number] 05/27/2016 05/27/2016 [facility] [id number] 05/27/2016 05/27/2016 [facility] [id number] 05/27/2016 05/27/2016 [facility] [id number] 06/24/2016 06/24/2016 [facility] [id number] 06/24/2016 06/24/2016 [facility] [id number] 06/24/2016 06/24/2016 [facility] Message [id number] 07/15/2016 07/15/2016 [facility] Message [id number] 07/15/2016 07/15/2016 [facility] Unknown [id number] 08/12/2016 08/12/2016 [facility] Procedures No Data Provided for This Section Assessment and Plan No Data Provided for This Section Plan of Care No Data Provided for This Section Social History Social History Date Source Smoking StatusStart DateEnd Date Unknown if ever smoked 07/11/2018 13:44:46 07/10/2018 [facility] Social History ElementQualifiersDate Reported Tobacco Use: . Are you a: Never Smoker August 12, 2016 caffeine yes. caffeine Yes 2 cups per day August 12, 2016 alcohol no. alcohol No August 12, 2016 Children: . sons:1 daughters:1 August 12, 2016 Marital Status: . August 12, 2016 Exercise: no. Do you exercise? No August 12, 2016 08/12/2016 [facility] Family History Value Date Source QualifierDescriptionCommentDate Reported Maternal Grand Mother Comment not available Jun 24, 2016 Siblings Comment not available Jun 24, 2016 Children Comment not available Jun 24, 2016 Father Comment not available Jun 24, 2016 Maternal aunt Comment not available Jun 24, 2016 Mother Comment not available Jun 24, 2016 Paternal uncle Comment not available Jun 24, 2016 Maternal uncle Comment not available Jun 24, 2016 Paternal aunt Comment not available Jun 24, 2016 Other Comment not available Jun 24, 2016 Paternal Grand Mother Comment not available Jun 24, 2016 Maternal Grand Father Comment not available Jun 24, 2016 Paternal Grand Father Comment not available Jun 24, 2016 07/02/2016 [facility] Advance Directives Order Name Results Value Date Source Advance Directives Advance Directives Cardiopulmonary Resuscitation 07/11/2018 [place] [facility] [place] [facility] Functional Status No Data Provided for This Section
--- OUTSIDE RECORDS SUMMARY | 2018-12-04 18:55 | XMS REPORT ---
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 Active Problem Coronary artery disease involving [place] coronary artery of [place] heart without angina pectoris I25.10 Active Problem 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 Problem Acute on chronic systolic congestive heart failure I50.23 Active Problem Gastrointestinal hemorrhage associated with chronic gastritis K29.51 Active Problem Cerebrovascular accident (CVA), unspecified mechanism I63.9 Active Problem HTN (hypertension) I10 Active Problem Peptic ulcer disease K27.9 Active Problem Vertigo R42 Active Assessment 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 Assessment HTN (hypertension) I10 Active Assessment Type 2 diabetes mellitus with other circulatory complication, 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 Medications Medication Code System Code Instructions Start Date End [place] [address] 40 mg orally once a day May 27, 2016 Active 1 tab([place]) [place] [address] 325 mg orally once a day Active 1 tab(s) Ultram NDC 4526 50 mg orally every 6 hours PRN Jul 15, 2016 Active 1 tab(s) levothyroxine NDC 29605 25 mcg (0.025 mg) orally once a day May 03, 2014 Active 1 tab(s) Humulin N ND 6296 human recombinant 100 units/mL subcutaneously Once daily October 28, 2016 Active 20 [place] [address] 25 mg orally once a day Active 1 cap([place]) [place] [address] - orally once a day Active 17 g lisinopril NDC 30678 5 mg orally once a day October 28, 2016 Active 1 tab(s) Eliquis NDC 265398 2.5 mg orally 2 times a day Active 1 tab(s) glipizide NDC 08285 10 mg orally Twice a day Active 1 tab(s) Savaysa NDC 807501 30 mg orally once a day Active 1 tab(s) furosemide NDC 96553 40 mg orally once a day Jun 24, 2016 Active 1 tab(s) Co Q-10 NDC 452044 100 mg orally once a day Active 1 cap(s) atorvastatin NDC 69165 40 mg orally once a day (at bedtime) Active 1 tab(s) gabapentin NDC 13899 300 mg orally Once daily Active 1 cap(s) levetiracetam NDC 23343 500 mg orally 2 times a day September 09, 2014 Active 1 tab(s) Vital Signs Date/Time: October 28, 2016 BMI 34.67 Index Height 64 in Weight 202 lbs Respiratory Rate 20 /min Blood Pressure Diastolic 86 mm Hg Blood Pressure Systolic 162 mm Hg Cardiac Monitoring Heart Rate 84 /min Results No Known Results Summary Purpose eClinicalWorks Submission
--- OUTSIDE RECORDS SUMMARY | 2018-12-04 18:55 | XMS REPORT ---
Author Author REMA WOOD [facility] eClinicalWorks Address Unknown Phone Unavailable Care Team Providers Care Java Sdet Name Role Phone REMA WOOD Unavailable Allergies, Adverse Reactions, Alerts Substance Reaction Event Type penicillin hives Drug Allergy Problems Problem Type Condition Code Onset Dates Condition Status Problem Vertigo R42 Active Problem Acute on chronic systolic congestive heart failure I50.23 Active Problem Peptic ulcer disease K27.9 Active Problem Essential (primary) hypertension I10 Active Problem Metabolic disorder, unspecified E88.9 Active Problem A-fib I48.91 Active Problem Gastrointestinal hemorrhage associated with chronic gastritis K29.51 Active Problem 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 Problem Type 2 diabetes mellitus without complications E11.9 Active Problem Localized edema R60.0 Active Assessment Essential (primary) hypertension I10 Active Assessment Acute on chronic systolic congestive heart failure I50.23 Active Assessment Cough R05 Active Assessment Type 2 diabetes mellitus without complications E11.9 Active Problem Coronary artery disease involving [place] coronary artery of [place] heart without angina pectoris I25.10 Active Problem Type 2 diabetes mellitus with other circulatory complication, 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 Active Assessment A-fib I48.91 Active Problem HTN (hypertension) I10 Active Problem 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 Active Problem Cerebrovascular accident (CVA), unspecified mechanism I63.9 Active Medications Medication Code System Code Instructions Start Date End Date Status Dosage benzonatate ND 31753265093 100 mg orally 3 times a day Mar 12, 2017 Mar 17, 2017 Active 1 cap(s) Co Q-10 ND 36488383345 100 mg orally once a day Active 1 cap(s) Ultram ND 92446113818 50 mg orally every 6 hours PRN Jul 15, 2016 Active 1 tab(s) glipizide ND 58838528726 10 mg orally Twice a day Active 1 tab(s) levothyroxine [facility] 85409078605 25 mcg (0.025 mg) orally once a day May 03, 2014 Active 1 tab(s) furosemide [facility] 75975771404 40 mg orally once a day Inactive 1 tab(s) Humulin N [facility] 23453187842 human recombinant 100 units/mL subcutaneously Once daily October 28, 2016 Active 20 units Eliquis [facility] 67666747166 2.5 mg orally 2 times a day Inactive 1 tab(s) Warfarin Sodium ND 36828268223 4 mg orally once a day Feb 06, 2017 Active 1 tab(s) Lyrica ND 64442654283 25 mg orally once a day Active 1 cap(s) atorvastatin [facility] 27786536039 40 mg orally once a day (at bedtime) Active 1 tab(s) gabapentin [facility] 17773897137 300 mg orally Once daily Active 1 cap(s) furosemide ND 26785385363 20 mg orally once a day Active 1 tab(s) Coumadin [facility] 28959309689 5 mg orally once a day Active 1 tab(s) ferrous fumarate [facility] 00101539064 325 mg orally once a day Active 1 tab(s) lisinopril ND 37604559334 5 mg orally once a day October 28, 2016 Active 1 tab(s) MiraLax [facility] 80358042419 - orally once a day Active 17 g pantoprazole ND 06458387243 40 mg orally once a day May 27, 2016 Active 1 tab(s) levetiracetam [facility] 73072408296 500 mg orally 2 times a day September 09, 2014 Active 1 tab(s) Vital Signs Date/Time: Mar 12, 2017 BMI 33.64 Index Weight 196 lbs Height 64 in Respiratory Rate 20 /min Blood Pressure Diastolic 63 mm Hg Blood Pressure Systolic 109 mm Hg Cardiac Monitoring Heart Rate 93 /min Results No Known Results Summary Purpose eClinicalWorks Submission
--- OUTSIDE RECORDS SUMMARY | 2018-12-04 18:55 | XMS REPORT ---
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 Problem Flu vaccine need Z23 Active Problem 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 Problem Constipated K59.00 Active Problem Iron deficiency anemia, unspecified iron deficiency anemia type D50.9 Active Problem Other obesity due to excess calories E66.09 Active Problem Body mass index (BMI) of 30.0-30.9 in adult Z68.30 Active Problem Coronary artery disease involving [place] coronary artery of [place] heart without angina pectoris I25.10 Active Problem HTN (hypertension) I10 Active Problem Type 2 diabetes mellitus with other circulatory complication, 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 Active Problem Cerebrovascular accident (CVA), unspecified mechanism I63.9 Active Problem Peptic ulcer disease K27.9 Active Problem 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
--- OUTSIDE RECORDS SUMMARY | 2018-12-04 18:55 | XMS REPORT ---
Author Author REMA WOOD [facility] eClinicalWorks Address Unknown Phone Unavailable Care Team Providers Care Manager International Name Role Phone REMA WOOD Unavailable Allergies, [...] systolic congestive heart failure I50.23 Active Assessment Type 2 diabetes mellitus without complications E11.9 Active Problem Coronary artery disease involving [place] coronary artery of [place] heart without angina pectoris I25.10 Active Problem Type 2 diabetes mellitus with other circulatory complication, 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 Active Assessment A-fib I48.91 Active Problem HTN (hypertension) I10 Active Problem 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 Active Problem Cerebrovascular accident (CVA), unspecified mechanism I63.9 Active Medications Medication Code System Code Instructions Start Date End Date Status Dosage furosemide [facility] 50358835198 20 mg orally once a day Active 1 tab(s) Coumadin ND 24209753326 5 mg orally once a day Active 1 tab(s) lisinopril [facility] 61394956041 5 mg orally once a day October 28, 2016 Active 1 tab(s) atorvastatin [facility] 54735778883 40 mg orally once a day (at bedtime) Active 1 tab(s) Humulin N [facility] 58223702344 human recombinant 100 units/mL subcutaneously Once daily October 28, 2016 Active 20 units gabapentin [facility] 89540097139 300 mg orally Once daily Active 1 cap(s) Eliquis ND 56458354677 2.5 mg orally 2 times a day Inactive 1 tab(s) levothyroxine [facility] 31257857449 25 mcg (0.025 mg) orally once a day May 03, 2014 Active 1 tab(s) ferrous fumarate ND 20447791761 325 mg orally once a day Active 1 tab(s) Ultram ND 40216913376 50 mg orally every 6 hours PRN Jul 15, 2016 Active 1 tab(s) pantoprazole ND 02998482818 40 mg orally once a day May 27, 2016 Active 1 tab(s) Warfarin Sodium ND 92434085227 4 mg orally once a day Feb 06, 2017 Active 1 tab(s) Lyrica ND 02468881669 25 mg orally once a day Active 1 cap(s) Co Q-10 ND 83187043443 100 mg orally once a day Active 1 cap(s) levetiracetam ND 25004213004 500 mg orally 2 times a day September 09, 2014 Active 1 tab(s) furosemide ND 46180751247 40 mg orally once a day Inactive 1 tab(s) glipizide [facility] 46797101760 10 mg orally Twice a day Active 1 tab(s) MiraLax [facility] 15296776774 - orally once a day Active 17 g Vital Signs Date/Time: Apr 09, 2017 BMI 34.15 Index Weight 199 lbs Height 64 in Respiratory Rate 20 /min Blood Pressure Diastolic 74 mm Hg Blood Pressure Systolic 122 mm Hg Cardiac Monitoring Heart Rate 95 /min Results No Known Results Summary Purpose eClinicalWorks Submission
--- OUTSIDE RECORDS SUMMARY | 2018-12-04 18:55 | XMS REPORT ---
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 Active Problem Coronary artery disease involving [place] coronary artery of [place] heart without angina pectoris I25.10 Active Assessment [...] Start Date [place] D[place] [address] 25 mg orally once a day Active 1 [place]) [place] [address] 25 mcg (0.025 mg) orally once a day May 03, 2014 Active 1 tab([place]) [place] [address] 40 mg orally once a day May 27, 2016 Active 1 tab([place]) [place] [address] 10 mg orally Twice a day Active 1 tab([place] [address] 40 mg orally once a day (at bedtime) Active 1 tab([place]) [place] [address] 325 mg orally once a day Active 1 [place] [address] - orally once a day Active 17 g Savaysa ND 776402 30 mg orally once a day Active 1 tab([place]) [place] [address] 100 units/mL subcutaneously Once daily September 30, 2016 Inactive [place] [address] 500 mg orally 2 times a day September 09, 2014 Active 1 tab(s) gabapentin NDC 99505 300 mg orally Once daily Active 1 cap(s) furosemide NDC 24737 40 mg orally once a day Jun 24, 2016 Active 1 tab(s) Ultram NDC 4526 50 mg orally every 6 hours PRN Jul 15, 2016 Active 1 tab(s) Januvia NDC 96746 100 mg orally once a day September 02, 2016 December 01, 2016 Inactive 1 tab(s) Eliquis NDC 272811 2.5 mg orally 2 times a day Active 1 tab(s) Co Q-10 NDC 743702 100 mg orally once a day Active 1 cap(s) Vital Signs Date/Time: October 09, 2016 BMI 34.67 Index Height 64 in Weight 202 lbs Respiratory Rate 20 /min Blood Pressure Diastolic 74 mm Hg Blood Pressure Systolic 135 mm Hg Cardiac Monitoring Heart Rate 67 /min Results No Known Results Summary Purpose eClinicalWorks Submission
--- OUTSIDE RECORDS SUMMARY | 2018-12-04 18:56 | XMS REPORT ---
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
--- OUTSIDE RECORDS SUMMARY | 2018-12-04 18:56 | XMS REPORT ---
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 Active Problem 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 Active Problem Gastrointestinal hemorrhage associated with chronic gastritis K29.51 Active Problem 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
--- OUTSIDE RECORDS SUMMARY | 2018-12-04 18:56 | XMS REPORT ---
Author Author REMA WOOD Organization eClinicalWorks Address Unknown Phone Unavailable Care Team Providers Care Entertainment Centre Manager Name Role Phone REMA WOOD CP Unavailable Allergies No Known Allergies Problems Problem Type Condition Code Onset Dates Condition Status Problem Vertigo R42 Active Problem Acute on chronic systolic congestive heart failure I50.23 Active Problem Peptic ulcer disease K27.9 Active Problem Type 2 diabetes mellitus without complications E11.9 Active Problem Metabolic disorder, unspecified E88.9 Active Problem A-fib I48.91 Active Problem Gastrointestinal hemorrhage associated with chronic gastritis K29.51 Active Problem 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 Problem Essential (primary) hypertension I10 Active Problem Localized edema R60.0 Active Problem Type 2 diabetes mellitus with other circulatory complication, 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 Active Problem Cerebrovascular accident (CVA), unspecified mechanism I63.9 Active Assessment Type 2 diabetes mellitus with other circulatory complication, 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 Problem Coronary artery disease involving [place] coronary artery of [place] heart without angina pectoris I25.10 Active Problem 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
--- OUTSIDE RECORDS SUMMARY | 2018-12-04 18:56 | XMS REPORT ---
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 [place] heart without angina pectoris I25.10 Active Problem Type 2 diabetes mellitus with other circulatory complication, 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 Active Assessment Acute on chronic systolic congestive heart failure I50.23 Active Problem HTN (hypertension) I10 Active Problem 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
--- OUTSIDE RECORDS SUMMARY | 2018-12-04 18:56 | XMS REPORT ---
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
--- OUTSIDE RECORDS SUMMARY | 2018-12-04 18:56 | XMS REPORT ---
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 Problem Type 2 diabetes mellitus with other circulatory complication, 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 Active Problem 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.30 Active Problem 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 Active Problem Flu vaccine need Z23 Active Problem Gastrointestinal hemorrhage associated with chronic gastritis K29.51 Active Problem Body mass index (BMI) of 30.0-30.9 in adult Z68.30 Active Problem Constipated K59.00 Active Problem 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 Problem Other obesity due to excess calories E66.09 Active Problem HTN (hypertension) I10 Active Problem Vertigo R42 Active Problem Cerebrovascular accident (CVA), unspecified mechanism I63.9 Active Problem Coronary artery disease involving [place] coronary artery of [place] heart without angina pectoris I25.10 Active Problem 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
--- OUTSIDE RECORDS SUMMARY | 2018-12-04 18:56 | XMS REPORT ---
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 Active Problem Gastrointestinal hemorrhage associated with chronic gastritis K29.51 Active Problem 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 Problem Localized edema R60.0 Active Problem Vertigo R42 Active Problem Cerebrovascular accident (CVA), unspecified mechanism I63.9 Active Problem Acute on chronic systolic congestive heart failure I50.23 Active Problem Peptic ulcer disease K27.9 Active Assessment 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 Assessment Coronary artery disease involving [place] coronary artery of [place] heart without angina pectoris I25.10 Active Assessment Cerebrovascular accident (CVA), unspecified mechanism I63.9 Active Assessment 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 Active Assessment Type 2 diabetes mellitus with other circulatory complication, 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 Assessment Localized edema R60.0 Active Assessment HTN (hypertension) I10 Active Problem 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 Active Medications Medication Code System Code Instructions Start Date End Date Status Dosage furosemide NDC 08324 20 mg orally once a day November 18, 2016 Active 1 tab(s) Co Q-10 NDC 527757 100 mg orally once a day Active 1 cap(s) Eliquis NDC 598197 2.5 mg orally 2 times a day Active 1 tab(s) gabapentin NDC 81960 300 mg orally Once daily Active 1 cap(s) Humulin N ND 6296 human recombinant 100 units/mL subcutaneously Once daily October 28, 2016 Active 20 units furosemide NDC 92282 40 mg orally once a day Jun 24, 2016 Active 1 tab(s) MiraLax NDC 88008 - orally once a day Active 17 g levothyroxine NDC 32969 25 mcg (0.025 mg) orally once a day May 03, 2014 Active 1 tab(s) levetiracetam NDC 16555 500 mg orally 2 times a day September 09, 2014 Active 1 tab(s) atorvastatin NDC 98880 40 mg orally once a day (at bedtime) Active 1 tab(s) pantoprazole NDC 78601 40 mg orally once a day May 27, 2016 Active 1 tab(s) glipizide NDC 34598 10 mg orally Twice a day Active 1 tab(s) lisinopril NDC 36027 5 mg orally once a day October 28, 2016 Active 1 tab(s) Ultram NDC 4526 50 mg orally every 6 hours PRN Jul 15, 2016 Active 1 tab(s) ferrous fumarate NDC 33890 325 mg orally once a day Active 1 tab(s) Savaysa NDC 426217 30 mg orally once a day Inactive 1 tab(s) Xarelto NDC 222338 10 mg orally once a day November 18, 2016 December 18, 2016 Active 1 tab(s) Lyrica NDC 64466 25 mg orally once a day Active 1 cap(s) Vital Signs Date/Time: November 18, 2016 BMI 35.01 Index Height 64 in Weight 204 lbs Respiratory Rate 20 /min Blood Pressure Diastolic 72 mm Hg Blood Pressure Systolic 138 mm Hg Cardiac Monitoring Heart Rate 82 /min Results No Known Results Summary Purpose eClinicalWorks Submission
--- OUTSIDE RECORDS SUMMARY | 2018-12-04 18:56 | XMS REPORT ---
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
--- OUTSIDE RECORDS SUMMARY | 2018-12-04 18:56 | XMS REPORT ---
Author Author REMA WOOD Organization eClinicalWorks Address Unknown Phone Unavailable Care Team Providers Care Event Host Name Role Phone REMA WOOD CP Unavailable Allergies, Adverse Reactions, Alerts Substance Reaction Event Type penicillin hives Drug Allergy Problems Problem Type Condition Code Onset Dates Condition Status Assessment Gastrointestinal hemorrhage associated with chronic gastritis K29.51 Active Assessment HTN (hypertension) I10 Active Assessment Expressive aphasia R47.01 Active Assessment Chronic atrial fibrillation I48.2 Active Assessment Essential hypertension I10 Active Assessment Coronary artery disease involving [place] coronary artery of [place] heart without angina pectoris I25.10 Active Assessment Type 2 diabetes mellitus with hyperglycemia E11.65 Active Problem A-fib I48.91 Active Assessment 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 Problem Metabolic disorder, unspecified E88.9 Active Problem Diabetic polyneuropathy associated with type 2 diabetes mellitus E11.42 Active Problem Iron deficiency anemia, unspecified iron deficiency anemia type D50.9 Active Problem S/P cholecystectomy Z90.49 Active Problem 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 Problem 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.30 Active Problem Type 2 diabetes mellitus with other circulatory complication, 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 Active Problem 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 Active Problem Gastrointestinal hemorrhage associated with chronic gastritis K29.51 Active Problem Flu vaccine need Z23 Active Problem Body mass index (BMI) of 30.0-30.9 in adult Z68.30 Active Problem Constipated K59.00 Active Problem 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 Problem Other obesity due to excess calories E66.09 Active Problem HTN (hypertension) I10 Active Problem Vertigo R42 Active Problem Cerebrovascular accident (CVA), unspecified mechanism I63.9 Active Problem Coronary artery disease involving [place] coronary artery of [place] heart without angina pectoris I25.10 Active Problem 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 Problem Localized edema R60.0 Active Problem Acute on chronic systolic congestive heart failure I50.23 Active Problem Peptic ulcer disease K27.9 Active Medications Medication Code System Code Instructions Start Date End Date Status Dosage Humulin N [facility] 05720755592 100U/ML Active INJECT 20 UNITS SUBCUTANEOUSLY ONCE DAILY lisinopril [facility] 10817840969 2.5 mg orally once a day Active 1 tab(s) Colace [facility] 48510639566 sodium 100 mg orally Once daily January 05, 2018 December 31, 2018 Active 1 cap(s) Humulin N [facility] 42900264384 human recombinant 100 units/mL subcutaneously Once daily Active 23 Humulin N [facility] 74450179120 100U/ML Active INJECT 20 UNITS SUBCUTANEOUSLY ONCE DAILY Co Q-10 [facility] 05067639187 100 mg orally once a day Active 1 cap(s) pantoprazole [facility] 51487075183 40 mg orally once a day May 27, 2016 Active 1 tab(s) furosemide [facility] 27075794824 40 mg orally once a day Active 1 tab(s) atorvastatin [facility] 49325682664 40 mg orally once a day Active 1 tab(s) levetiracetam [facility] 37046423721 750 mg orally 2 times a day Active TAKE 1 TABLET BY MOUTH TWICE DAILY Coreg [facility] 30237710080 3.125 mg orally 2 times a day September 17, 2017 Active 1 tab(s) triamterene/hctz [facility] 41369567873 25 mg-37.5 mg Active TAKE 1 TABLET BY MOUTH ONCE DAILY Lyrica [facility] 73970557470 25MG Active TAKE 1 CAPSULE BY MOUTH ONCE DAILY Fish Oil [facility] 99944268676 1200 mg orally Once daily Active 1 cap(s) Coumadin [facility] 07499891364 6 mg orally once a day Active 1 tab(s) Vital Signs Date/Time: August 26, 2018 BMI 32.52 Index Weight 189.5 lbs Height 64 in Respiratory Rate 20 /min Blood Pressure Diastolic 77 mm Hg Blood Pressure Systolic 133 mm Hg Cardiac Monitoring Heart Rate 81 /min Results No Known Results Summary Purpose eClinicalWorks Submission
--- OUTSIDE RECORDS SUMMARY | 2018-12-04 18:56 | XMS REPORT ---
Author Author REMA WOOD Organization eClinicalWorks Address Unknown Phone Unavailable Care Team Providers Care Animal Therapist Name Role Phone REMA WOOD Unavailable Allergies, Adverse Reactions, Alerts Substance Reaction Event Type penicillin hives Drug Allergy Problems Problem Type Condition Code Onset Dates Condition Status Assessment Expressive aphasia R47.01 Active Assessment Chronic atrial fibrillation I48.2 Active Assessment Essential hypertension I10 Active Assessment Coronary artery disease involving [place] coronary artery of [place] heart without angina pectoris I25.10 Active Problem Localized edema R60.0 Active Assessment Type 2 diabetes mellitus with hyperglycemia E11.65 Active Problem A-fib I48.91 Active Assessment 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 Problem Metabolic disorder, unspecified E88.9 Active Problem S/P cholecystectomy Z90.49 Active Problem Diabetic polyneuropathy associated with type 2 diabetes mellitus E11.42 Active Problem 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.30 Active Problem 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 Problem 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 [...] Z68.30 Active Problem Coronary artery disease involving [place] coronary artery of [place] heart without angina pectoris I25.10 Active Problem HTN (hypertension) I10 Active Problem Type 2 diabetes mellitus with other circulatory complication, 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 Active Problem Cerebrovascular accident (CVA), unspecified mechanism I63.9 Active Problem Peptic ulcer disease K27.9 Active Problem 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 Problem Vertigo R42 Active Problem Acute on chronic systolic congestive heart failure I50.23 Active Medications Medication Code System Code Instructions Start Date End Date Status Dosage lisinopril [facility] 63023316745 2.5 mg orally once a day Jun 10, 2018 Active 1 tab(s) Humulin N [facility] 19813881429 100U/ML Active INJECT 20 UNITS SUBCUTANEOUSLY ONCE DAILY pantoprazole [facility] 35566701946 40 mg orally once a day May 27, 2016 Active 1 tab(s) Humulin N [facility] 67844799688 human recombinant 100 units/mL subcutaneously Once daily Active 23 Fish Oil [facility] 01291315861 1200 mg orally Once daily Active 1 cap(s) triamterene/hctz [facility] 54319346177 25 mg-37.5 mg orally once a day Active 1 tab(s) furosemide [facility] 34805343802 40 mg orally once a day Active 1 tab(s) Colace [facility] 05101393644 sodium 100 mg orally Once daily January 05, 2018 December 31, 2018 Active 1 cap(s) Xarelto [facility] 01130515365 15 mg orally once a day (in the evening) Active 1 tab(s) Humulin N [facility] 92536108036 100U/ML Active INJECT 20 UNITS SUBCUTANEOUSLY ONCE DAILY Lyrica [facility] 07841894449 25MG Active TAKE 1 CAPSULE BY MOUTH ONCE DAILY Co Q-10 [facility] 52537235398 100 mg orally once a day Active 1 cap(s) Coreg [facility] 25256158178 3.125 mg orally 2 times a day September 17, 2017 Active 1 tab(s) levetiracetam [facility] 83750729543 750 mg orally 2 times a day Active 1 tab(s) senna [facility] 99603777007 8.6 mg orally once a day (at bedtime) Jul 13, 2018 August 12, 2018 Active 1 tab(s) Coumadin [facility] 66963691654 4 mg orally once a day Active 1 tab(s) atorvastatin [facility] 60001771656 40 mg orally once a day Active 1 tab(s) Vital Signs Date/Time: Jul 20, 2018 BMI 32.61 Index Weight 190 lbs Height 64 in Respiratory Rate 20 /min Blood Pressure Diastolic 80 mm Hg Blood Pressure Systolic 146 mm Hg Cardiac Monitoring Heart Rate 82 /min Results Name Result Date Reference Range Unit Abnormality Flag PROTHROMBIN TIME-INR ----INR 1.3 [id number] H ----PT 13.1 [id number] 9.0-11.5 sec H Summary Purpose eClinicalWorks Submission
--- OUTSIDE RECORDS SUMMARY | 2018-12-04 18:56 | XMS REPORT ---
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
--- OUTSIDE RECORDS SUMMARY | 2018-12-04 18:56 | XMS REPORT ---
Author Author REMA WOOD [facility] eClinicalWorks Address Unknown Phone Unavailable Care Team Providers Care Wood Pole Treater Name Role Phone REMA WOOD Unavailable Allergies, Adverse Reactions, Alerts Substance Reaction Event Type penicillin hives Drug Allergy Problems Problem Type Condition Code Onset Dates Condition Status Problem Coronary artery disease involving [place] coronary artery of [place] heart without angina pectoris I25.10 Active Problem [...] Problem Peptic ulcer disease K27.9 Active Assessment Cerebrovascular accident (CVA), unspecified mechanism I63.9 Active Assessment Type 2 diabetes mellitus with other circulatory complication, 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 Assessment Acute on chronic systolic congestive heart failure I50.23 Active Assessment HTN (hypertension) I10 Active Problem 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 Active Medications Medication Code System Code Instructions Start Date End Date Status Dosage Ultram ND 4526 50 mg orally every 6 hours PRN Jul 15, 2016 Active 1 tab(s) atorvastatin NDC 02906 40 mg orally once a day (at bedtime) Active 1 tab(s) Humulin N ND 6296 human recombinant 100 units/mL subcutaneously Once daily October 28, 2016 Active 20 units Eliquis ND 555422 2.5 mg orally 2 times a day Active 1 tab([place] [address] 10 mg orally Twice a day Active 1 tab([place]) [place] [address] 40 mg orally once a day May 27, 2016 Active 1 tab(s) furosemide NDC 72390 20 mg orally once a day November 18, 2016 Active 1 tab(s) lisinopril NDC 10718 5 mg orally once a day October 28, 2016 Active 1 tab(s) levetiracetam NDC 31546 500 mg orally 2 times a day September 09, 2014 Active 1 tab(s) furosemide NDC 65731 40 mg orally once a day Jun 24, 2016 Active 1 tab(s) MiraLax NDC 25997 - orally once a day Active 17 g Co Q-10 NDC 129504 100 mg orally once a day Active 1 cap(s) levothyroxine NDC 14559 25 mcg (0.025 mg) orally once a day May 03, 2014 Active 1 tab(s) Xarelto NDC 924949 10 mg orally once a day November 18, 2016 December 18, 2016 Active 1 tab(s) Lyrica NDC 28035 25 mg orally once a day Active 1 cap(s) gabapentin NDC 67021 300 mg orally Once daily Active 1 cap(s) ferrous fumarate NDC 64766 325 mg orally once a day Active 1 tab(s) Vital Signs Date/Time: December 16, 2016 BMI 34.67 Index Height 64 in Weight 202 lbs Respiratory Rate 20 /min Blood Pressure Diastolic 79 mm Hg Blood Pressure Systolic 139 mm Hg Cardiac Monitoring Heart Rate 91 /min Results No Known Results Summary Purpose eClinicalWorks Submission
--- OUTSIDE RECORDS SUMMARY | 2018-12-04 18:56 | XMS REPORT ---
Author Author REMA WOOD Organization eClinicalWorks Address Unknown Phone Unavailable Care Team Providers Care Tower Equipment Installer Name Role Phone REMA WOOD CP [...] R60.0 Active Problem Coronary artery disease involving [place] coronary artery of [place] heart without angina pectoris I25.10 Active Problem Type 2 diabetes mellitus with other circulatory complication, 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 Active Problem HTN (hypertension) I10 Active Problem 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 Active Problem Cerebrovascular accident (CVA), unspecified mechanism I63.9 Active Medications Medication Code System Code Instructions Start Date End Date Status Dosage Lyrica [facility] 38273119801 25 mg orally once a day Active 1 cap(s) Results No Known Results Summary Purpose eClinicalWorks Submission
--- OUTSIDE RECORDS SUMMARY | 2018-12-04 18:56 | XMS REPORT ---
Author Author REMA WOOD [facility] eClinicalWorks Address Unknown Phone Unavailable Care Team Providers Care Emergency Communications Operator Name Role Phone REMA WOOD Unavailable Allergies, [...] diabetes mellitus without complications E11.9 Active Assessment Metabolic disorder, unspecified E88.9 Active Problem Coronary artery disease involving [place] coronary artery of [place] heart without angina pectoris I25.10 Active Problem Type 2 diabetes mellitus with other circulatory complication, 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 Active Assessment A-fib I48.91 Active Problem HTN (hypertension) I10 Active Problem 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 Active Problem Cerebrovascular accident (CVA), unspecified mechanism I63.9 Active Medications Medication Code System Code Instructions Start Date End Date Status Dosage Co Q-10 [facility] 87515818872 100 mg orally once a day Active 1 cap(s) levothyroxine [facility] 37537430108 25 mcg (0.025 mg) orally once a day May 03, 2014 Active 1 tab(s) gabapentin [facility] 01903218878 300 mg orally Once daily Active 1 cap(s) hydrochlorothiazide-triamterene [facility] 44542648119 25 mg-37.5 mg orally once a day Jan 15, 2017 Feb 14, 2017 Active 1 cap(s) Xarelto [facility] 74200712494 10 mg orally once a day November 18, 2016 Jan 18, 2017 Active 1 tab(s) Ultram ND 56529623116 50 mg orally every 6 hours PRN Jul 15, 2016 Active 1 tab(s) Eliquis ND 39081825935 2.5 mg orally 2 times a day Inactive 1 tab(s) atorvastatin [facility] 28755759351 40 mg orally once a day (at bedtime) Active 1 tab(s) furosemide ND 80940602332 40 mg orally once a day Jun 24, 2016 Active 1 tab(s) furosemide ND 85577826484 20 mg orally once a day November 18, 2016 Inactive 1 tab(s) lisinopril ND 35289082149 5 mg orally once a day October 28, 2016 Active 1 tab(s) levetiracetam [facility] 13584026274 500 mg orally 2 times a day September 09, 2014 Active 1 tab(s) MiraLax [facility] 58487597156 - orally once a day Active 17 g pantoprazole [facility] 78818088263 40 mg orally once a day May 27, 2016 Active 1 tab(s) glipizide [facility] 97026317055 10 mg orally Twice a day Jan 10, 2018 Active 1 tab(s) Coumadin ND 99715223790 2 mg orally once a day Jan 15, 2017 Active 1 tab(s) ferrous fumarate [facility] 17914830624 325 mg orally once a day Active 1 tab(s) Lyrica [facility] 08935868621 25 mg orally once a day Active 1 cap(s) Humulin N [facility] 26899216898 human recombinant 100 units/mL subcutaneously Once daily October 28, 2016 Active 20 units Vital Signs Date/Time: Jan 15, 2017 BMI 34.84 Index Height 64 in Weight 203 lbs Respiratory Rate 20 /min Blood Pressure Diastolic 76 mm Hg Blood Pressure Systolic 115 mm Hg Cardiac Monitoring Heart Rate 62 /min Results No Known Results Summary Purpose eClinicalWorks Submission
--- OUTSIDE RECORDS SUMMARY | 2018-12-04 18:56 | XMS REPORT ---
Author Author REMA WOOD Organization eClinicalWorks Address Unknown Phone Unavailable Care Team Providers Care [place] Singer Name Role Phone REMA WOOD CP Unavailable [...] R60.0 Active Problem Coronary artery disease involving [place] coronary artery of [place] heart without angina pectoris I25.10 Active Problem Type 2 diabetes mellitus with other circulatory complication, 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 Active Problem HTN (hypertension) I10 Active Problem 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 Active Problem Cerebrovascular accident (CVA), unspecified mechanism I63.9 Active Medications Medication Code System Code Instructions Start Date End Date Status Dosage Warfarin Sodium [facility] 22560764491 4 mg orally once a day Feb 06, 2017 Active 1 tab(s) Results No Known Results Summary Purpose eClinicalWorks Submission
--- OUTSIDE RECORDS SUMMARY | 2018-12-04 18:56 | XMS REPORT ---
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
--- OUTSIDE RECORDS SUMMARY | 2018-12-04 18:57 | XMS REPORT ---
Author Author REMA WOOD [facility] eClinicalWorks Address Unknown Phone Unavailable Care Team Providers Care Bond Manager Name Role Phone REMA WOOD Unavailable Allergies, Adverse Reactions, Alerts Substance Reaction Event Type penicillin hives Drug Allergy Problems Problem Type Condition Code Onset Dates Condition Status Problem Cerebrovascular accident (CVA), unspecified mechanism I63.9 Active Problem Vertigo R42 Active Problem HTN (hypertension) I10 Active Problem A-fib I48.91 Active Assessment Diabetic polyneuropathy associated with type 2 diabetes mellitus E11.42 Active Problem Metabolic disorder, unspecified E88.9 Active Assessment Gastrointestinal hemorrhage associated with chronic gastritis K29.51 Active Problem Diabetic polyneuropathy associated with type 2 diabetes mellitus E11.42 Active Problem Peptic ulcer disease K27.9 Active Problem Acute on chronic systolic congestive heart failure I50.23 Active Problem Localized edema R60.0 Active Problem 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 Assessment Type 2 diabetes mellitus with other circulatory complication, 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 Assessment Cerebrovascular accident (CVA), unspecified mechanism I63.9 Active Assessment A-fib I48.91 Active Assessment HTN (hypertension) I10 Active Assessment Acute on chronic systolic congestive heart failure I50.23 Active Problem 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 Active Assessment 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 Active Problem Coronary artery disease involving [place] coronary artery of [place] heart without angina pectoris I25.10 Active Assessment Coronary artery disease involving [place] coronary artery of [place] heart without angina pectoris I25.10 Active Problem Type 2 diabetes mellitus with other circulatory complication, 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 Active Medications Medication Code System Code Instructions Start Date End Date Status Dosage furosemide [facility] 18450380509 40 mg orally once a day Active 1 tab(s) levothyroxine [facility] 47221396037 25 mcg (0.025 mg) orally once a day May 03, 2014 Active 1 tab(s) atorvastatin [facility] 11183486397 40 mg orally once a day (at bedtime) Active 1 tab(s) furosemide ND 86348250121 20 mg orally once a day Jun 18, 2017 Active 1 tab(s) Coumadin ND 67381167766 5 mg orally once a day Inactive 1 tab(s) MiraLax ND 41259491909 - orally once a day Active 17 g levetiracetam ND 74487374975 500 mg orally 2 times a day September 09, 2014 Active 1 tab(s) ferrous fumarate ND 28699555322 325 mg orally once a day Active 1 tab(s) Warfarin Sodium ND 59999504867 4 mg orally once a day Feb 06, 2017 Jun 18, 2017 Active 1 tab(s) Lyrica ND 03627719130 25 mg orally once a day Active 1 cap(s) glipizide [facility] 19659345105 10 mg orally Twice a day Active 1 tab(s) Coumadin ND 17082298984 6 mg orally once a day Apr 17, 2017 Active 1 tab(s) Co Q-10 ND 72224198431 100 mg orally once a day Active 1 cap(s) pantoprazole ND 12429525084 40 mg orally once a day May 27, 2016 Active 1 tab(s) gabapentin ND 70523581289 300 mg orally Once at night Jun 18, 2017 Active 1 cap(s) gabapentin [facility] 47287461869 300 mg orally Once daily Active 1 cap(s) lisinopril ND 43509644847 5 mg orally once a day October 28, 2016 Active 1 tab(s) Humulin N [facility] 65780241514 human recombinant 100 units/mL subcutaneously Once daily October 28, 2016 Active 20 units Ultram [facility] 90872510093 50 mg orally every 6 hours PRN Jul 15, 2016 Active 1 tab(s) Vital Signs Date/Time: Jun 18, 2017 BMI 35.61 Index Weight 207.5 lbs Height 64 in Respiratory Rate 20 /min Blood Pressure Diastolic 88 mm Hg Blood Pressure Systolic 156 mm Hg Cardiac Monitoring Heart Rate 92 /min Results No Known Results Immunizations Vaccine Administration Date [employer] MEDICARE Jun 18, 2017 Summary Purpose eClinicalWorks Submission
--- OUTSIDE RECORDS SUMMARY | 2018-12-04 18:57 | XMS REPORT ---
Author Author REMA WOOD [facility] eClinicalWorks Address Unknown Phone Unavailable Care Team Providers Care Cone Classifier Tender Name Role Phone REMA WOOD Unavailable Allergies, Adverse Reactions, Alerts Substance Reaction Event Type penicillin hives Drug Allergy Problems Problem Type Condition Code Onset Dates Condition Status Problem HTN (hypertension) I10 Active Problem Peptic ulcer disease K27.9 Active Problem Vertigo R42 Active Problem Diabetic polyneuropathy associated with type 2 diabetes mellitus E11.42 Active Assessment Urinary frequency R35.0 Active Problem Metabolic disorder, unspecified E88.9 Active Problem S/P cholecystectomy Z90.49 Active Problem 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 Problem Acute on chronic systolic congestive heart failure I50.23 Active Problem A-fib I48.91 Active Problem Localized edema R60.0 Active Assessment Type 2 diabetes mellitus with other circulatory complication, 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 Assessment HTN (hypertension) I10 Active Assessment A-fib I48.91 Active Assessment Acute on chronic systolic congestive heart failure I50.23 Active Problem 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 Active Problem Coronary artery disease involving [place] coronary artery of [place] heart without angina pectoris I25.10 Active Assessment Cerebrovascular accident (CVA), unspecified mechanism I63.9 Active Problem Type 2 diabetes mellitus with other circulatory complication, 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 Active Assessment S/P cholecystectomy Z90.49 Active Problem Cerebrovascular accident (CVA), unspecified mechanism I63.9 Active Medications Medication Code System Code Instructions Start Date End Date Status Dosage ferrous fumarate ND 29586842711 325 mg orally once a day Active 1 tab(s) gabapentin NDC 78978033073 300 mg orally Once at night Jun 18, 2017 Active 1 cap(s) Lyrica ND 52682711047 25MG Active TAKE 1 CAPSULE BY MOUTH ONCE DAILY furosemide ND 01442085751 40 mg orally once a day Active 1 tab(s) Coumadin ND 52162401271 6 mg orally once a day Inactive 1 tab(s) MiraLax [facility] 06668701785 - orally once a day Active [address] [facility] 11233745107 10 mg orally once a day Active 1 tab(s) levothyroxine [facility] 79060255196 25 mcg (0.025 mg) orally once a day May 03, 2014 Active 1 tab(s) atorvastatin [facility] 13195633222 40 mg orally once a day (at bedtime) Active 1 tab(s) Coreg [facility] 70244588310 3.125 mg orally 2 times a day September 17, 2017 Active 1 tab(s) Humulin N [facility] 98376100377 human recombinant 100 units/mL subcutaneously Once daily Active [address] [facility] 36213393083 10 mg orally Twice a day Active 1 tab(s) gabapentin [facility] 21047959838 300 mg orally Once daily Active 1 cap(s) pantoprazole [facility] 43167106876 40 mg orally once a day May 27, 2016 Active 1 tab(s) levetiracetam [facility] 67681121343 500 mg orally 2 times a day Active 1 tab(s) Co Q-10 [facility] 29636936123 100 mg orally once a day Active 1 cap(s) Warfarin Sodium [facility] 55249104769 1 mg orally along with the 6 mg tablet once a day for Jul 02, 2017 Active Take one half Ultram [facility] 14769434865 50 mg orally every 6 hours PRN Jul 15, 2016 Active 1 tab(s) simethicone [facility] 78432194403 80 mg chewed 4 times a day (after meals and at bedtime) September 17, 2017 Active 1 tab(s) Vital Signs Date/Time: September 17, 2017 Cardiac Monitoring Heart Rate 95 /min Weight unstable lbs Height 64 in Respiratory Rate 20 /min Blood Pressure Diastolic 86 mm Hg Blood Pressure Systolic 156 mm Hg Results Name Result Date Reference Range Unit Abnormality Flag CULTURE, URINE, ROUTINE ----CULTURE, URINE, ROUTINE SEE NOTE [id number] Summary Purpose eClinicalWorks Submission
--- OUTSIDE RECORDS SUMMARY | 2018-12-04 18:57 | XMS REPORT ---
Author Author REMA WOOD Organization eClinicalWorks Address Unknown Phone Unavailable Care Team Providers Care Second Time Worker Name Role Phone REMA WOOD CP Unavailable Allergies No Known Allergies Problems Problem Type Condition Code Onset Dates Condition Status Problem Cerebrovascular accident (CVA), unspecified mechanism I63.9 Active Problem Vertigo R42 Active Problem HTN (hypertension) I10 Active Problem A-fib I48.91 Active Problem Metabolic disorder, unspecified E88.9 Active Problem Diabetic polyneuropathy associated with type 2 diabetes mellitus E11.42 Active Problem Peptic ulcer disease K27.9 Active Problem Acute on chronic systolic congestive heart failure I50.23 Active Problem Localized edema R60.0 Active Problem 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 Assessment Diabetic polyneuropathy associated with type 2 diabetes mellitus E11.42 Active Problem 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 Active Problem Coronary artery disease involving [place] coronary artery of [place] heart without angina pectoris I25.10 Active Problem Type 2 diabetes mellitus with other circulatory complication, 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 Active Medications Medication Code System Code Instructions Start Date End Date Status Dosage Lyrica [facility] 54187359172 25 mg orally once a day Active 1 cap(s) levothyroxine [facility] 07380175226 25 mcg (0.025 mg) orally once a day May 03, 2014 Active 1 tab(s) Results No Known Results Summary Purpose eClinicalWorks Submission
--- OUTSIDE RECORDS SUMMARY | 2018-12-04 18:57 | XMS REPORT ---
Author Author REMA WOOD Organization eClinicalWorks Address Unknown Phone Unavailable Care Team Providers Care Engine Test Cell Technician Name Role Phone REMA WOOD CP Unavailable [...] Date End Date Status Dosage Humulin N [facility] 77845083734 human recombinant 100 units/mL subcutaneously Once daily Active 20 units Results No Known Results Summary Purpose eClinicalWorks Submission
--- OUTSIDE RECORDS SUMMARY | 2018-12-04 18:57 | XMS REPORT ---
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
--- OUTSIDE RECORDS SUMMARY | 2018-12-04 18:57 | XMS REPORT ---
Author Author REMA WOOD Organization eClinicalWorks Address Unknown Phone Unavailable Care Team Providers Care Clinical Team Manager Name Role Phone REMA WOOD CP [...] Z95.0 Active Problem Coronary artery disease involving [place] coronary artery of [place] heart without angina pectoris I25.10 Active Problem Type 2 diabetes mellitus with other circulatory complication, 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 Active Medications Medication Code System Code Instructions Start Date End Date Status Dosage Warfarin Sodium [facility] 24545445999 1 mg orally along with the 6 mg tablet once a day for Jul 02, 2017 Aug 01, 2017 Active Take one half Results No Known Results Summary Purpose eClinicalWorks Submission
--- OUTSIDE RECORDS SUMMARY | 2018-12-04 18:57 | XMS REPORT ---
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 Problem Acute on chronic systolic congestive heart failure I50.23 Active Problem Iron deficiency anemia, unspecified iron deficiency anemia type D50.9 Active Problem S/P cholecystectomy Z90.49 Active Problem Constipated K59.00 Active Problem A-fib I48.91 Active Problem Localized edema R60.0 Active Problem Diabetic polyneuropathy associated with type 2 diabetes mellitus E11.42 Active Problem Metabolic disorder, unspecified E88.9 Active Assessment Diabetic polyneuropathy associated with type 2 diabetes mellitus E11.42 Active Problem Cerebrovascular accident (CVA), unspecified mechanism I63.9 Active Problem Coronary artery disease involving [place] coronary artery of [place] heart without angina pectoris I25.10 Active Problem 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 Active Problem HTN (hypertension) I10 Active Problem Type 2 diabetes mellitus with other circulatory complication, 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 Active Problem Vertigo R42 Active Medications Medication Code System Code Instructions Start Date End Date Status Dosage Lyrica [facility] 46031273857 25MG Active TAKE 1 CAPSULE BY MOUTH ONCE DAILY Results No Known Results Summary Purpose eClinicalWorks Submission
--- OUTSIDE RECORDS SUMMARY | 2018-12-04 18:57 | XMS REPORT ---
Author Author REMA WOOD Organization eClinicalWorks Address Unknown Phone Unavailable Care Team Providers Care Jewel Hole Rough Opener Name Role Phone REMA WOOD CP Unavailable [...] of cerebrovascular accident (CVA) I69.322 Active Assessment A-fib I48.91 Active Problem 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 Active Problem Coronary artery disease involving [place] coronary artery of [place] heart without angina pectoris I25.10 Active Assessment Diabetic polyneuropathy associated with type 2 diabetes mellitus E11.42 Active Problem Type 2 diabetes mellitus with other circulatory complication, 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 Active Medications Medication Code System Code Instructions Start Date End Date Status Dosage Coumadin [facility] 62369917113 6 mg orally once a day Active 1 tab(s) Warfarin Sodium [facility] 85460847434 1 mg orally along with the 6 mg tablet once a day for Jul 02, 2017 Active Take one half levothyroxine [facility] 04726501960 25 mcg (0.025 mg) orally once a day May 03, 2014 Active 1 tab(s) Lyrica [facility] 85958469535 25 mg orally once a day Active 1 cap(s) Results No Known Results Summary Purpose eClinicalWorks Submission
--- OUTSIDE RECORDS SUMMARY | 2018-12-04 18:57 | XMS REPORT ---
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 Active Problem Coronary artery disease involving [place] coronary artery of [place] heart without angina pectoris I25.10 Active Problem Type 2 diabetes mellitus with other circulatory complication, 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 Active Assessment Acute on chronic systolic congestive heart failure I50.23 Active Problem Cerebrovascular accident (CVA), unspecified mechanism I63.9 Active Medications Medication Code System Code Instructions Start Date End Date Status Dosage Coreg [facility] 87368701377 3.125 mg orally 2 times a day September 17, 2017 Active 1 tab(s) Results No Known Results Summary Purpose eClinicalWorks Submission
--- OUTSIDE RECORDS SUMMARY | 2018-12-04 18:57 | XMS REPORT ---
Author Author REMA WOOD [facility] eClinicalWorks Address Unknown Phone Unavailable Care Team Providers Care Toys And Games Hand Finisher Name Role Phone REMA WOOD Unavailable Allergies, Adverse Reactions, Alerts Substance Reaction Event Type penicillin hives Drug Allergy Problems Problem Type Condition Code Onset Dates Condition Status Problem Cerebrovascular accident (CVA), unspecified mechanism I63.9 Active Problem Vertigo R42 Active Problem HTN (hypertension) I10 Active Problem A-fib I48.91 Active Assessment Gastrointestinal hemorrhage associated with chronic gastritis K29.51 Active Problem Metabolic disorder, unspecified E88.9 Active [...] Z95.0 Active Problem Coronary artery disease involving [place] coronary artery of [place] heart without angina pectoris I25.10 Active Assessment Coronary artery disease involving [place] coronary artery of [place] heart without angina pectoris I25.10 Active Problem Type 2 diabetes mellitus with other circulatory complication, 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 Active Medications Medication Code System Code Instructions Start Date End Date Status Dosage Coumadin [facility] 18062259052 6 mg orally once a day Active 1 tab(s) Humulin N [facility] 20225124751 human recombinant 100 units/mL subcutaneously Once daily Active 20 units MiraLax [facility] 43504444653 - orally once a day Active 17 g levetiracetam [facility] 28956625657 500 mg orally 2 times a day Active 1 tab(s) Lyrica ND 27901153817 25 mg orally once a day Active 1 cap(s) gabapentin ND 25603368427 300 mg orally Once at night Jun 18, 2017 Active 1 cap(s) pantoprazole ND 36963524251 40 mg orally once a day May 27, 2016 Active 1 tab(s) ferrous fumarate ND 78253959417 325 mg orally once a day Active 1 tab(s) Ultram ND 42905809045 50 mg orally every 6 hours PRN Jul 15, 2016 Active 1 tab(s) Coumadin ND 76520374063 5 mg orally once a day Inactive 1 tab(s) glipizide ND 55556441055 10 mg orally Twice a day Active 1 tab(s) Warfarin Sodium ND 57199361199 1 mg orally along with the 6 mg tablet once a day for Jul 02, 2017 Aug 01, 2017 Active Take one half Co Q-10 [facility] 57426754969 100 mg orally once a day Active 1 cap(s) lisinopril [facility] 64298722479 10 mg orally once a day Active 1 tab(s) levothyroxine [facility] 90956410590 25 mcg (0.025 mg) orally once a day May 03, 2014 Active 1 tab(s) furosemide ND 02130620679 40 mg orally once a day Active 1 tab(s) atorvastatin [facility] 14336141474 40 mg orally once a day (at bedtime) Active 1 tab(s) gabapentin [facility] 57859095764 300 mg orally Once daily Active 1 cap(s) Vital Signs Date/Time: Jul 16, 2017 BMI 35.10 Index Weight 204.5 lbs Height 64 in Respiratory Rate 20 /min Blood Pressure Diastolic 83 mm Hg Blood Pressure Systolic 150 mm Hg Cardiac Monitoring Heart Rate 79 /min Results No Known Results Summary Purpose eClinicalWorks Submission
--- OUTSIDE RECORDS SUMMARY | 2018-12-04 18:57 | XMS REPORT ---
Author Author REMA WOOD [facility] eClinicalWorks Address Unknown Phone Unavailable Care Team Providers Care Weir Fisher Name Role Phone REMA WOOD Unavailable Allergies, [...] unspecified iron deficiency anemia type D50.9 Active Assessment A-fib I48.91 Active Problem S/P cholecystectomy Z90.49 Active Assessment Iron deficiency anemia, unspecified iron deficiency anemia type D50.9 Active Assessment Constipated K59.00 Active Problem Constipated K59.00 Active Problem A-fib I48.91 Active Problem Localized edema R60.0 Active Problem Diabetic polyneuropathy associated with type 2 diabetes mellitus E11.42 Active Problem Metabolic disorder, unspecified E88.9 Active Assessment Acute on chronic systolic congestive heart failure I50.23 Active Assessment Annual physical exam Z00.00 Active Assessment Type 2 diabetes mellitus with other circulatory complication, 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 Assessment Cerebrovascular accident (CVA), unspecified mechanism I63.9 Active Problem Cerebrovascular accident (CVA), unspecified mechanism I63.9 Active Problem Coronary artery disease involving [place] coronary artery of [place] heart without angina pectoris I25.10 Active Problem 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 Active Problem HTN (hypertension) I10 Active Assessment Diabetic polyneuropathy associated with type 2 diabetes mellitus E11.42 Active Problem Type 2 diabetes mellitus with other circulatory complication, 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 Active Problem Vertigo R42 Active Medications Medication Code System Code Instructions Start Date End Date Status Dosage furosemide ND 20056374009 40 mg orally once a day Active 1 tab(s) Lyrica ND 26378002114 25MG Active TAKE 1 CAPSULE BY MOUTH ONCE DAILY pantoprazole ND 01768280029 40 mg orally once a day May 27, 2016 Active 1 tab(s) levothyroxine [facility] 58311099967 25 mcg (0.025 mg) orally once a day May 03, 2014 Active 1 tab(s) Xarelto [facility] 32484680295 15 mg orally once a day (in the evening) Active 1 tab(s) levetiracetam [facility] 40861187434 500 mg orally 2 times a day Active 1 tab(s) Humulin N [facility] 98069304635 human recombinant 100 units/mL subcutaneously Once daily Active 23 Coreg [facility] 90115917033 3.125 mg orally 2 times a day September 17, 2017 Active 1 tab(s) ferrous fumarate ND 68155625027 325 mg orally once a day Inactive 1 tab(s) Warfarin Sodium [facility] 43878422309 1 mg orally along with the 6 mg tablet once a day for Jul 02, 2017 Active Take one half Fish Oil [facility] 50970960060 1200 mg orally Once daily Active 1 cap(s) Lyrica ND 17855866237 25MG Active TAKE 1 CAPSULE BY MOUTH ONCE DAILY atorvastatin [facility] 51961085373 40 mg orally once a day (at bedtime) Inactive 1 tab(s) Co Q-10 [facility] 79139886519 100 mg orally once a day Active 1 cap(s) simethicone [facility] 86440925909 80 mg chewed 4 times a day (after meals and at bedtime) September 17, 2017 Active 1 tab(s) Ultram ND 20978980550 50 mg orally every 6 hours PRN Jul 15, 2016 Active 1 tab(s) spironolactone ND 03831426360 25 mg orally Once daily Inactive 1 tab(s) MiraLax [facility] 83468788321 - orally once a day Inactive 17 g lisinopril [facility] 58776118170 10 mg orally once a day Active 1 tab(s) Vital Signs Date/Time: December 08, 2017 BMI 33.98 Index Weight 198 lbs Height 64 in Respiratory Rate 20 /min Blood Pressure Diastolic 72 mm Hg Blood Pressure Systolic 121 mm Hg Cardiac Monitoring Heart Rate 91 /min Results No Known Results Summary Purpose eClinicalWorks Submission
--- OUTSIDE RECORDS SUMMARY | 2018-12-04 18:57 | XMS REPORT ---
Author Author REMA WOOD Organization [employer] Address Unknown Phone Unavailable Care Team Providers Care Support Merchandiser Name Role Phone REMA WOOD CP Unavailable Allergies No Known Allergies Problems Problem Type Condition Code Onset Dates Condition Status Problem Vertigo R42 Active Problem Acute on chronic systolic congestive heart failure I50.23 Active Problem Peptic ulcer disease K27.9 Active Problem S/P cholecystectomy Z90.49 Active Problem Diabetic polyneuropathy associated with type 2 diabetes mellitus E11.42 Active Problem Iron deficiency anemia, unspecified iron deficiency anemia type D50.9 Active Problem Localized edema R60.0 Active Problem 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 Problem Metabolic disorder, unspecified E88.9 Active Problem A-fib I48.91 Active Problem Type 2 diabetes mellitus with other circulatory complication, 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 Active Problem Cerebrovascular accident (CVA), unspecified mechanism I63.9 Active Assessment Diabetic polyneuropathy associated with type 2 diabetes mellitus E11.42 Active Problem Coronary artery disease involving [place] coronary artery of [place] heart without angina pectoris I25.10 Active Problem 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 Active Problem HTN (hypertension) I10 Active Medications Medication Code System Code Instructions Start Date End Date Status Dosage Lyrica [facility] 22590994451 25MG Active TAKE 1 CAPSULE BY MOUTH ONCE DAILY Results No Known Results Summary Purpose eClinicalWorks Submission
--- OUTSIDE RECORDS SUMMARY | 2018-12-04 18:57 | XMS REPORT ---
Author Author REMA WOOD Organization [employer] Address Unknown Phone Unavailable Care Team Providers Care Director Of Quality Control Name Role Phone REMA WOOD CP Unavailable [...] Z68.30 Active Problem Coronary artery disease involving [place] coronary artery of [place] heart without angina pectoris I25.10 Active Problem [...] Instructions Start Date End Date Status Dosage levetiracetam [facility] 13817289937 750 mg Active TAKE 1 TABLET BY MOUTH TWICE DAILY Results No Known Results Summary Purpose eClinicalWorks Submission
--- OUTSIDE RECORDS SUMMARY | 2018-12-04 18:57 | XMS REPORT ---
Author Author REMA WOOD Organization [employer] Address Unknown Phone Unavailable Care Team Providers Care Touch Up Edger Name Role Phone REMA WOOD CP Unavailable Allergies No Known Allergies Problems Problem Type Condition Code Onset Dates Condition Status Problem A-fib I48.91 Active Problem Diabetic polyneuropathy associated with type 2 diabetes mellitus E11.42 Active Problem Metabolic disorder, unspecified E88.9 Active Problem 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.30 Active Problem Flu vaccine need Z23 Active Problem Other obesity due to excess calories E66.09 Active Assessment Diabetic polyneuropathy associated with type 2 diabetes mellitus E11.42 Active Problem 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 Problem Iron deficiency anemia, unspecified iron deficiency anemia type D50.9 Active Problem S/P cholecystectomy Z90.49 Active Problem Body mass index (BMI) of 30.0-30.9 in adult Z68.30 Active Problem Constipated K59.00 Active Problem Cerebrovascular accident (CVA), unspecified mechanism I63.9 Active Problem Coronary artery disease involving [place] coronary artery of [place] heart without angina pectoris I25.10 Active Problem 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 Active Problem Type 2 diabetes mellitus with other circulatory complication, 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 Active Problem Acute on chronic systolic congestive heart failure I50.23 Active Problem Peptic ulcer disease K27.9 Active Problem HTN (hypertension) I10 Active Problem 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
--- OUTSIDE RECORDS SUMMARY | 2018-12-04 18:58 | XMS REPORT ---
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
--- OUTSIDE RECORDS SUMMARY | 2018-12-04 18:58 | XMS REPORT ---
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 Problem Diabetic polyneuropathy associated with type 2 diabetes mellitus E11.42 Active Problem Metabolic disorder, unspecified E88.9 Active Problem Iron deficiency anemia, unspecified iron deficiency anemia type D50.9 Active Problem S/P cholecystectomy Z90.49 Active Problem 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 Active Problem Type 2 diabetes mellitus with other circulatory complication, 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 Active Problem HTN (hypertension) I10 Active Problem Vertigo R42 Active Problem Cerebrovascular accident (CVA), unspecified mechanism I63.9 Active Problem Peptic ulcer disease K27.9 Active Problem Coronary artery disease involving [place] coronary artery of [place] heart without angina pectoris I25.10 Active Problem Acute on chronic systolic congestive heart failure I50.23 Active Medications Medication Code System Code Instructions Start Date End Date Status Dosage Lyrica [facility] 15423994939 25MG Active TAKE 1 CAPSULE BY MOUTH ONCE DAILY Results No Known Results Summary Purpose eClinicalWorks Submission
--- OUTSIDE RECORDS SUMMARY | 2018-12-04 18:58 | XMS REPORT ---
Author Author REMA WOOD Organization [employer] Address Unknown Phone Unavailable Care Team Providers Care Ladle Car Operator Name Role Phone REMA WOOD CP [...] I63.9 Active Problem Coronary artery disease involving [place] coronary artery of [place] heart without angina pectoris I25.10 Active Problem [...] Instructions Start Date End Date Status Dosage senna [facility][NOTE 3] 59952083860 8.6 mg orally once a day (at bedtime) Jul 13, 2018 August 12, 2018 Active 1 tab(s) Results No Known Results Summary Purpose eClinicalWorks Submission
--- OUTSIDE RECORDS SUMMARY | 2018-12-04 18:58 | XMS REPORT ---
Author Author REMA WOOD Organization [employer] Address Unknown Phone Unavailable Care Team Providers Care Remarketing Manager Name Role Phone REMA WOOD Unavailable Allergies, Adverse Reactions, Alerts Substance Reaction Event Type penicillin hives Drug Allergy Encounters Encounter Location Date Unknown [facility] Apr 24, 2016 Unknown [facility] Apr 29, 2016 Unknown [facility] May 27, 2016 Problems Problem Type Condition ICD-9 Code Onset Dates Condition Status Assessment Peptic ulcer disease K27.9 Active Problem 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 Active Assessment Acute on chronic systolic congestive heart failure I50.23 Active Problem Peptic ulcer disease K27.9 Active Problem Vertigo R42 Active Problem Acute on chronic systolic congestive heart failure I50.23 Active Problem Type 2 diabetes mellitus with other circulatory complication, 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 Active Problem Coronary artery disease involving [place] coronary artery of [place] heart without angina pectoris I25.10 Active Problem Cerebrovascular accident (CVA), unspecified mechanism I63.9 Active Problem HTN (hypertension) I10 Active Assessment Cerebrovascular accident (CVA), unspecified mechanism I63.9 Active Assessment HTN (hypertension) I10 Active Assessment Type 2 diabetes mellitus with other circulatory complication, 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 Assessment Coronary artery disease involving [place] coronary artery of [place] heart without angina pectoris I25.10 Active Medications Medication Code System Code Instructions Start Date End Date Status Dosage atorvastatin [facility] 32828 40 mg orally once a day (at bedtime) Active 1 tab(s) furosemide [facility] 86753 20 mg orally once a day May 27, 2016 Active 1 tab(s) levetiracetam [facility] 01938 500 mg orally 2 times a day September 09, 2014 Active 1 tab(s) pantoprazole [facility] 02313 40 mg orally once a day May 27, 2016 Active 1 tab(s) Eliquis [facility] 031243 2.5 mg orally 2 times a day Active 1 tab(s) MiraLax [facility] 09369 - orally once a day Active 17 g glipizide [facility] 56156 10 mg orally once a day Active 1 tab(s) levothyroxine [facility] 91686 25 mcg (0.025 mg) orally once a day May 03, 2014 Active 1 tab(s) Januvia [facility] 74037 50MG Active TAKE ONE TABLET BY MOUTH TWICE DAILY Co Q-10 [facility] 942559 100 mg orally once a day Active 1 cap(s) Social History Social History Element Qualifiers Date Reported Tobacco Use: . Are you a: Never Smoker May 27, 2016 caffeine yes. caffeine Yes 2 cups per day May 27, 2016 alcohol no. alcohol No May 27, 2016 Children: . sons:1 daughters:1 May 27, 2016 Marital Status: . May 27, 2016 Exercise: no. Do you exercise? No May 27, 2016 Vital Signs Date/Time: May 27, 2016 Height 64 in Weight 203 lbs Respiratory Rate 18 /min Blood Pressure Diastolic 75 mm Hg Blood Pressure Systolic 177 mm Hg Cardiac Monitoring Heart Rate 62 /min Summary Purpose eClinicalWorks Submission
--- OUTSIDE RECORDS SUMMARY | 2018-12-04 18:58 | XMS REPORT ---
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 Problem HTN (hypertension) I10 Active Assessment HTN (hypertension) I10 Active Problem Vertigo R42 Active Assessment Cerebrovascular accident (CVA), unspecified mechanism I63.9 Active Problem Peptic ulcer disease K27.9 Active Problem 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 Problem Acute on chronic systolic congestive heart failure I50.23 Active Problem Iron deficiency anemia, unspecified iron deficiency anemia type D50.9 Active Problem S/P cholecystectomy Z90.49 Active Assessment Acute cerebrovascular accident I63.9 Active Assessment Iron deficiency anemia D50.9 Active Problem Constipated K59.00 Active Assessment Coronary artery disease involving [place] coronary artery of [place] heart without angina pectoris I25.10 Active Problem A-fib I48.91 Active Problem Localized edema R60.0 Active Problem Diabetic polyneuropathy associated with type 2 diabetes mellitus E11.42 Active Problem Metabolic disorder, unspecified E88.9 Active Assessment Acute constipation K59.00 Active Assessment A-fib I48.91 Active Assessment Acute on chronic systolic congestive heart failure I50.23 Active Assessment Diabetic polyneuropathy associated with type 2 diabetes mellitus E11.42 Active Problem Cerebrovascular accident (CVA), unspecified mechanism I63.9 Active Problem Coronary artery disease involving [place] coronary artery of [place] heart without angina pectoris I25.10 Active Problem 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 Active Problem Type 2 diabetes mellitus with other circulatory complication, 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 Active Medications Medication Code System Code Instructions Start Date End Date Status Dosage Humulin N [facility] 77212933769 human recombinant 100 units/mL subcutaneously Once daily Active 23 Fish Oil NDC 76511104008 1200 mg orally Once daily Active 1 cap(s) levetiracetam [facility] 46294559224 500 mg orally 2 times a day Active 1 tab(s) pantoprazole [facility] 70775364381 40 mg orally once a day May 27, 2016 Active 1 tab(s) Co Q-10 [facility] 53046394646 100 mg orally once a day Active 1 cap(s) Coreg [facility] 09476204456 3.125 mg orally 2 times a day September 17, 2017 Active 1 tab(s) Lyrica [facility] 03128126024 25MG Active TAKE 1 CAPSULE BY MOUTH ONCE DAILY furosemide ND 85799811192 40 mg orally once a day Active 1 tab(s) Colace [facility] 35890742655 sodium 100 mg orally Once daily January 05, 2018 December 31, 2018 Active 1 cap(s) Xarelto [facility] 35372364602 15 mg orally once a day (in the evening) Active 1 tab(s) Vital Signs Date/Time: January 05, 2018 BMI 34.84 Index Weight 203 lbs Height 64 in Respiratory Rate 20 /min Blood Pressure Diastolic 78 mm Hg Blood Pressure Systolic 136 mm Hg Cardiac Monitoring Heart Rate 78 /min Results No Known Results Summary Purpose eClinicalWorks Submission
--- OUTSIDE RECORDS SUMMARY | 2018-12-04 18:58 | XMS REPORT ---
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 Problem Iron deficiency anemia, unspecified iron deficiency anemia type D50.9 Active Problem S/P cholecystectomy Z90.49 Active Problem Body mass index (BMI) of 30.0-30.9 in adult Z68.30 Active Problem Constipated K59.00 Active Problem Cerebrovascular accident (CVA), unspecified mechanism I63.9 Active Problem Coronary artery disease involving [place] coronary artery of [place] heart without angina pectoris I25.10 Active Problem 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 Active Problem Type 2 diabetes mellitus with other circulatory complication, 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 Active Problem Acute on chronic systolic congestive heart failure I50.23 Active Problem Peptic ulcer disease K27.9 Active Assessment Flu vaccine need Z23 Active Problem HTN (hypertension) I10 Active Problem 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 66979442357 100U/ML Active INJECT 20 UNITS SUBCUTANEOUSLY ONCE DAILY Co Q-10 [facility] 14048745805 100 mg orally once a day Active 1 cap(s) levetiracetam [facility] 83656130105 500 mg orally 2 times a day Active 1 tab(s) Humulin N [facility] 54340604596 human recombinant 100 units/mL subcutaneously Once daily Active 23 Fish Oil [facility] 47791836997 1200 mg orally Once daily Active 1 cap(s) Xarelto [facility] 27834807427 15 mg orally once a day (in the evening) Active 1 tab(s) furosemide [facility] 73194342771 40 mg orally once a day Active 1 tab(s) Colace [facility] 87241982871 sodium 100 mg orally Once daily January 05, 2018 December 31, 2018 Active 1 cap(s) Coreg [facility] 58061684387 3.125 mg orally 2 times a day September 17, 2017 Active 1 tab(s) pantoprazole [facility] 16084609638 40 mg orally once a day May 27, 2016 Active 1 tab(s) Lyrica [facility] 45800901154 25MG Active TAKE 1 CAPSULE BY MOUTH ONCE DAILY Vital Signs Date/Time: Apr 06, 2018 BMI 34.67 Index Weight 202 lbs Height 64 in Respiratory Rate 20 /min Blood Pressure Diastolic 94 mm Hg Blood Pressure Systolic 151 mm Hg Cardiac Monitoring Heart Rate 77 /min Results No Known Results Immunizations Vaccine Administration Date [employer] Apr 06, 2018 Summary Purpose eClinicalWorks Submission
--- OUTSIDE RECORDS SUMMARY | 2018-12-04 18:58 | XMS REPORT ---
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 Assessment Bloody stool K92.1 Active Problem Localized edema R60.0 Active Assessment Type 2 diabetes mellitus with other circulatory complication, 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 Problem A-fib I48.91 Active Problem Diabetic polyneuropathy associated with type 2 diabetes mellitus E11.42 Active Problem Metabolic disorder, unspecified E88.9 Active Problem 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.30 Active Problem Other obesity due to excess calories E66.09 Active Problem Flu vaccine need Z23 Active Problem 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 Assessment Cystitis N30.90 Active Problem Iron deficiency anemia, unspecified iron deficiency anemia type D50.9 Active Problem S/P cholecystectomy Z90.49 Active Problem Body mass index (BMI) of 30.0-30.9 in adult Z68.30 Active Problem Constipated K59.00 Active Problem Cerebrovascular accident (CVA), unspecified mechanism I63.9 Active Problem Coronary artery disease involving [place] coronary artery of [place] heart without angina pectoris I25.10 Active Problem 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 Active Problem Type 2 diabetes mellitus with other circulatory complication, 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 Active Problem Acute on chronic systolic congestive heart failure I50.23 Active Problem Peptic ulcer disease K27.9 Active Problem HTN (hypertension) I10 Active Problem Vertigo R42 Active Medications Medication Code System Code Instructions Start Date End Date Status Dosage Humulin N [facility] [place] 26204913548 human recombinant 100 units/mL subcutaneously Once daily Active 23 units Fish Oil [facility] [place] 40197921149 1200 mg orally Once daily Active 1 cap(s) pantoprazole ND 78061175728 40 mg orally once a day May 27, 2016 Active 1 tab(s) Xarelto [facility] [place] 47264829919 15 mg orally once a day (in the evening) Active 1 tab(s) Colace [facility] [place] 48127882201 sodium 100 mg orally Once daily January 05, 2018 December 31, 2018 Active 1 cap(s) Co Q-10 [facility] [place] 16016760287 100 mg orally once a day Active 1 cap(s) furosemide ND 56297914740 40 mg orally once a day Active 1 tab(s) levetiracetam ND 71438493923 500 mg orally 2 times a day Active 1 tab(s) cephalexin [facility] [place] 27994384450 500 mg orally every 12 hours Jun 10, 2018 Jun 20, 2018 Active 1 cap(s) Coreg [facility] [place] 39730665913 3.125 mg orally 2 times a day September 17, 2017 Active 1 tab(s) Lotrimin AF Cream [facility] [place] 64769555040 1% applied topically 2 times a day Jun 10, 2018 Jun 17, 2018 Active 1 torsten lisinopril [facility] [place] 57884581980 5 mg orally once a day Jun 10, 2018 Active 1 tab(s) Humulin N [facility] [place] 62622342453 100U/ML Active INJECT 20 UNITS SUBCUTANEOUSLY ONCE DAILY Lyrica [facility] [place] 52956670273 25MG Active TAKE 1 CAPSULE BY MOUTH ONCE DAILY fluconazole [facility] [place] 00565201020 150 mg orally once Jun 10, 2018 Jun 11, 2018 Active 1 tab(s) Vital Signs Date/Time: Jun 10, 2018 BMI 33.98 Index Weight 198 lbs Height 64 in Respiratory Rate 20 /min Blood Pressure Diastolic 86 mm Hg Blood Pressure Systolic 160 mm Hg Cardiac Monitoring Heart Rate 95 /min Results No Known Results Summary Purpose eClinicalWorks Submission
--- OUTSIDE RECORDS SUMMARY | 2018-12-04 18:58 | XMS REPORT ---
Author Author REMA WOOD Organization [employer] Address Unknown Phone Unavailable Care Team Providers Care Floral Specialist Name Role Phone REMA WOOD Unavailable Allergies, Adverse Reactions, Alerts Substance Reaction Event Type penicillin hives Drug Allergy Encounters Encounter Location Date Unknown [facility] Jun 24, 2016 Unknown [facility] Apr 24, 2016 Unknown [facility] Apr 29, 2016 Unknown [facility] May 27, 2016 Problems Problem Type Condition ICD-9 Code Onset Dates Condition Status Problem 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 Active Problem Type 2 diabetes mellitus with other circulatory complication, 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 Active Problem Coronary artery disease 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 [place] heart without angina pectoris I25.10 Active Problem [...] of cerebrovascular accident (CVA) I69.322 Active Assessment Cerebrovascular accident (CVA), unspecified mechanism I63.9 Active Assessment Acute on chronic systolic congestive heart failure I50.23 Active Assessment Coronary artery disease 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 [place] heart without angina pectoris I25.10 Active Assessment Type 2 diabetes mellitus with other circulatory complication, 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 Assessment Gastrointestinal hemorrhage associated with chronic gastritis K29.51 Active Assessment HTN (hypertension) I10 Active Assessment 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 Active Assessment Annual physical exam Z00.00 Active Medications Medication Code System Code Instructions Start Date End Date Status Dosage Januvia MULTUM 02418 50MG Active TAKE ONE TABLET BY MOUTH TWICE DAILY Plavix MULTUM 28552 75 mg orally once a day Jun 24, 2016 Active 1 tab(s) Eliquis MULTUM 691868 2.5 mg orally 2 times a day Active 1 tab(s) Co Q-10 MULTUM 946497 100 mg orally once a day Active 1 cap(s) levothyroxine MULTUM 38591 25 mcg (0.025 mg) orally once a day May 03, 2014 Active 1 tab(s) furosemide MULTUM 85534 40 mg orally once a day Jun 24, 2016 Active 1 tab(s) pantoprazole MULTUM 19156 40 mg orally once a day May 27, 2016 Active 1 tab(s) MiraLax MULTUM 09559 - orally once a day Active 17 g glipizide MULTUM 60405 10 mg orally once a day Active 1 tab(s) atorvastatin MULTUM 95031 40 mg orally once a day (at bedtime) Active 1 tab(s) levetiracetam MULTUM 47217 500 mg orally 2 times a day September 09, 2014 Active 1 tab(s) furosemide MULTUM 02280 20 mg orally once a day May 27, 2016 Inactive 1 tab(s) Social History Social History Element Qualifiers Date Reported Tobacco Use: . Are you a: Never Smoker Jun 24, 2016 caffeine yes. caffeine Yes 2 cups per day Jun 24, 2016 alcohol no. alcohol No Jun 24, 2016 Children: . sons:1 daughters:1 Jun 24, 2016 Marital Status: . Jun 24, 2016 Exercise: no. Do you exercise? No Jun 24, 2016 Family history Qualifier Description Comment Date Reported Maternal Grand Mother Comment not available [...] Father Comment not available Jun 24, 2016 Vital Signs Date/Time: Jun 24, 2016 Height 64 in Weight 198 lbs Respiratory Rate 18 /min Blood Pressure Diastolic 72 mm Hg Blood Pressure Systolic 142 mm Hg Cardiac Monitoring Heart Rate 66 /min Results CMP Summary Purpose eClinicalWorks Submission
--- OUTSIDE RECORDS SUMMARY | 2018-12-04 18:58 | XMS REPORT ---
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 Problem 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 Assessment HTN (hypertension) I10 Active Problem Localized edema R60.0 Active Assessment 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 Active Problem A-fib I48.91 Active Problem Diabetic polyneuropathy associated with type 2 diabetes mellitus E11.42 Active Problem Metabolic disorder, unspecified E88.9 Active Problem 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.30 Active Problem Other obesity due to excess calories E66.09 Active Problem Flu vaccine need Z23 Active Problem 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 Assessment 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.30 Active Problem Iron deficiency anemia, unspecified iron deficiency anemia type D50.9 Active Problem S/P cholecystectomy Z90.49 Active Problem Body mass index (BMI) of 30.0-30.9 in adult Z68.30 Active Problem Constipated K59.00 Active Problem Cerebrovascular accident (CVA), unspecified mechanism I63.9 Active Problem Coronary artery disease involving [place] coronary artery of [place] heart without angina pectoris I25.10 Active Problem [...] Start Date End Date Status Dosage Coreg NDC 44952379157 3.125 mg orally 2 times a day September 17, 2017 Active 1 tab(s) Xarelto [facility] 80593867982 15 mg orally once a day (in the evening) Active 1 tab(s) Fish Oil [facility] 51693814622 1200 mg orally Once daily Active 1 cap(s) pantoprazole [facility] 84209557184 40 mg orally once a day May 27, 2016 Active 1 tab(s) Humulin N [facility] 10886922714 100U/ML Active INJECT 20 UNITS SUBCUTANEOUSLY ONCE DAILY Humulin N [facility] 69087188542 human recombinant 100 units/mL subcutaneously Once daily Active 23 furosemide [facility] 55183090747 40 mg orally once a day Active 1 tab(s) Co Q-10 [facility] 51098684443 100 mg orally once a day Active 1 cap(s) Lyrica [facility] 20659319045 25MG Active TAKE 1 CAPSULE BY MOUTH ONCE DAILY Colace [facility] 41914639264 sodium 100 mg orally Once daily January 05, 2018 December 31, 2018 Active 1 cap(s) Lyrica [facility] 89941757266 25MG Active TAKE 1 CAPSULE BY MOUTH ONCE DAILY levetiracetam [facility] 03136078634 500 mg orally 2 times a day Active 1 tab(s) Vital Signs Date/Time: Jan 16, 2018 BMI 34.84 Index Weight 203 lbs Height 64 in Respiratory Rate 20 /min Blood Pressure Diastolic 78 mm Hg Blood Pressure Systolic 144 mm Hg Cardiac Monitoring Heart Rate 84 /min Results No Known Results Summary Purpose eClinicalWorks Submission
--- OUTSIDE RECORDS SUMMARY | 2018-12-04 18:58 | XMS REPORT ---
Author Author REMA WOOD [facility] eClinicalWorks Address Unknown Phone Unavailable Care Team Providers Care Heavy Duty Truck Mechanic Name Role Phone REMA WOOD Unavailable Allergies, Adverse Reactions, Alerts Substance Reaction Event Type penicillin hives Drug [facility] Problems Problem Type Condition ICD-9 Code Onset Dates Condition Status Assessment HTN (hypertension) I10 Active Assessment Vertigo R42 Active Assessment Coronary artery disease involving [place] coronary artery of [place] heart without angina pectoris I25.10 Active Assessment 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 Active Assessment Cerebrovascular accident (CVA), unspecified mechanism I63.9 Active Problem Cerebrovascular accident (CVA), unspecified mechanism I63.9 Active Problem HTN (hypertension) I10 Active Problem Vertigo R42 Active Problem 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 Active Assessment Type 2 diabetes mellitus with other circulatory complication, 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 Problem Type 2 diabetes mellitus with other circulatory complication, 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 Active Problem Coronary artery disease involving [place] coronary artery of [place] heart without angina pectoris I25.10 Active Medications Medication Code System Code Instructions Start Date End Date Status Dosage Januvia MULTUM 53513 50MG Active TAKE ONE TABLET BY MOUTH TWICE DAILY furosemide MULTUM 55640 40 mg orally once a day Inactive 1 tab(s) levetiracetam MULTUM 56452 500 mg orally 2 times a day September 09, 2014 Active 1 tab(s) atorvastatin MULTUM 72177 40 mg orally once a day (at bedtime) Active 1 tab(s) Plavix MULTUM 92971 75 mg orally once a day Inactive 1 tab(s) Eliquis MULTUM 113779 2.5 mg orally 2 times a day Apr 24, 2016 May 24, 2016 Active 1 tab(s) glipizide MULTUM 58112 10 mg orally once a day Active 1 tab(s) levothyroxine MULTUM 76649 25 mcg (0.025 mg) orally once a day May 03, 2014 Active 1 tab(s) MiraLax MULTUM 73751 - orally once a day Active 17 g Co Q-10 MULTUM 536975 100 mg orally once a day Active 1 cap(s) Social History Social History Element Qualifiers Date Reported Tobacco Use: . Are you a: Never Smoker Apr 29, 2016 caffeine yes. caffeine Yes 2 cups per day Apr 29, 2016 alcohol no. alcohol No Apr 29, 2016 Children: . sons:1 daughters:1 Apr 29, 2016 Marital Status: . Apr 29, 2016 Exercise: no. Do you exercise? No Apr 29, 2016 Vital Signs Date/Time: Apr 24, 2016 Height 64 in Weight 200 lbs Respiratory Rate 18 /min Blood Pressure Diastolic 74 mm Hg Blood Pressure Systolic 160 mm Hg Cardiac Monitoring Heart Rate 65 /min Immunizations Vaccine Administration Date [employer] MEDIC[employer] Apr 24, 2016 Summary Purpose eClinicalWorks Submission
--- OUTSIDE RECORDS SUMMARY | 2018-12-04 18:58 | XMS REPORT ---
Author Author REMA WOOD [facility] eClinicalWorks Address Unknown Phone Unavailable Care Team Providers Care Automation Architect Name Role Phone REMA WOOD Unavailable Allergies, Adverse Reactions, Alerts Substance Reaction Event Type penicillin hives Drug Allergy [facility] Problems Problem Type Condition ICD-9 Code Onset Dates Condition Status Assessment Cerebrovascular accident (CVA), unspecified mechanism I63.9 Active Assessment Coronary artery disease involving [place] coronary artery of [place] heart without angina pectoris I25.10 Active Assessment HTN (hypertension) I10 Active Assessment Localized edema R60.0 Active Assessment Cardiac pacemaker [...] E11.59 Active Problem Coronary artery disease involving [place] coronary artery of [place] heart without angina pectoris I25.10 Active Medications Medication Code System Code Instructions Start Date End Date Status Dosage Eliquis MULTUM 245226 2.5 mg orally 2 times a day Active 1 tab(s) glipizide MULTUM 23475 10 mg orally once a day Active 1 tab(s) levetiracetam MULTUM 36069 500 mg orally 2 times a day September 09, 2014 Active 1 tab(s) atorvastatin MULTUM 22417 40 mg orally once a day (at bedtime) Active 1 tab(s) Januvia MULTUM 92320 50MG Active TAKE ONE TABLET BY MOUTH TWICE DAILY furosemide MULTUM 15084 40 mg orally once a day Inactive 1 tab(s) MiraLax MULTUM 80332 - orally once a day Active 17 g levothyroxine MULTUM 35160 25 mcg (0.025 mg) orally once a day May 03, 2014 Active 1 tab(s) Co Q-10 MULTUM 128481 100 mg orally once a day Active 1 cap(s) Plavix MULTUM 46687 75 mg orally once a day Inactive 1 tab(s) Social History Social History [...] Apr 29, 2016 Vital Signs Date/Time: Apr 29, 2016 Height 64 in Weight 203 lbs Respiratory Rate 18 /min Blood Pressure Diastolic 76 mm Hg Blood Pressure Systolic 146 mm Hg Cardiac Monitoring Heart Rate 71 /min Summary Purpose eClinicalWorks Submission
--- OUTSIDE RECORDS SUMMARY | 2018-12-04 18:58 | XMS REPORT ---
Author Author REMA WOOD Organization [employer] Address Unknown Phone Unavailable Care Team Providers Care Mail Processing Associate Name Role Phone REMA WOOD CP Unavailable [...] 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 Active Assessment Diabetic polyneuropathy associated with type 2 diabetes mellitus E11.42 Active Problem HTN (hypertension) I10 Active Problem Vertigo R42 Active Problem Cerebrovascular accident (CVA), unspecified mechanism I63.9 Active Problem Peptic ulcer disease K27.9 Active Problem Coronary artery disease involving [place] coronary artery of [place] heart without angina pectoris I25.10 Active Problem Acute on chronic systolic congestive heart failure I50.23 Active Medications Medication Code System Code Instructions Start Date End Date Status Dosage Lyrica [facility] 89699692604 25MG Active TAKE 1 CAPSULE BY MOUTH ONCE DAILY Results No Known Results Summary Purpose eClinicalWorks Submission
--- OUTSIDE RECORDS SUMMARY | 2018-12-04 18:58 | XMS REPORT ---
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
--- OUTSIDE RECORDS SUMMARY | 2018-12-04 18:58 | XMS REPORT ---
Author Author REMA WOOD Organization [employer] Address Unknown Phone Unavailable Care Team Providers Care Chief Contract Officer Name Role Phone REMA WOOD CP Unavailable Encounters Encounter Location Date Unknown [facility] Jun 24, 2016 [facility] May [facility], [facility] Problems Problem Type Condition ICD-9 Code Onset Dates Condition Status Problem 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 Active Problem Type 2 diabetes mellitus with other circulatory complication, 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 Active Problem Coronary artery disease involving [place] coronary artery of [place] heart without angina pectoris I25.10 Active Problem [...] Start Date End Date Status Dosage Ultram MULTUM 4526 50 mg orally every 6 hours PRN Jul 15, 2016 Active 1 tab(s) Social History Social History Element Qualifiers Date Reported Tobacco Use: . Are you a: Never Smoker Jun 24, 2016 caffeine yes. caffeine Yes 2 cups per day Jun 24, 2016 alcohol no. alcohol No Jun 24, 2016 Children: . sons:1 daughters:1 Jun 24, 2016 Marital Status: . Jun 24, 2016 Exercise: no. Do you exercise? No Jun 24, 2016 Summary Purpose eClinicalWorks Submission
--- OUTSIDE RECORDS SUMMARY | 2018-12-04 18:59 | XMS REPORT ---
Author Author Laurie Shabazz Organization Unknown Address [address] [facility] Phone Unavailable Care Team Providers Care Particle Board Supervisor Name Role Phone Jalenmiranda Addy Unavailable Unavailable Advance directives Directive Description Status Cardiopulmonary Resuscitation CPR Verified By Medical Record Only Allergies Type Substance Reaction Status drug allergy Gabapentin Active drug allergy Metformin Active drug allergy Penicillins Active Problems Problem Effective Dates Problem Status I63.9 CEREBRAL INFARCTION, UNSPECIFIED 06/22/2018 Active R41.82 ALTERED MENTAL STATUS, UNSPECIFIED 06/22/2018 Active I69.322 DYSARTHRIA FOLLOWING CEREBRAL INFARCTION 06/22/2018 Active I10 ESSENTIAL (PRIMARY) HYPERTENSION 06/22/2018 Active E11.9 TYPE 2 DIABETES MELLITUS WITHOUT COMPLICATIONS 06/22/2018 Active M62.81 MUSCLE WEAKNESS (GENERALIZED) 06/22/2018 Active R26.89 OTHER ABNORMALITIES OF GAIT AND MOBILITY 06/22/2018 Active R27.9 UNSPECIFIED LACK OF COORDINATION 06/22/2018 Active R26.81 UNSTEADINESS ON FEET 06/22/2018 Active R48.2 APRAXIA 06/22/2018 Active 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 06/22/2018 Active I48.91 UNSPECIFIED ATRIAL FIBRILLATION 06/22/2018 Active E78.5 HYPERLIPIDEMIA, UNSPECIFIED 06/22/2018 Active I25.10 ATHEROSCLEROTIC HEART DISEASE OF [place] CORONARY ARTERY WITHOUT ANGINA PECTORIS 06/22/2018 Active R56.9 UNSPECIFIED CONVULSIONS 06/22/2018 Active Medications Medication Dose Form Route Sig Text Dates Status Lyrica Capsule 25 MG 1 capsule Capsule Oral Give 1 capsule by mouth one time a day for CVA 06/23/2018 9:00:00 06/23/2018 12:50:00 Aborted Pantoprazole Sodium Tablet Delayed Release 40 MG 1 tablet Tablet Delayed Release Oral Give 1 tablet by mouth every 48 hours for GERD 06/22/2018 19:45:00 Carvedilol Tablet 3.125 MG 1 tablet Tablet Oral Give 1 tablet by mouth every 12 hours for CAD 06/22/2018 21:00:00 06/25/2018 12:02:00 Aborted FerrouSul Tablet 325 (65 Fe) MG 1 tablet Tablet Oral Give 1 tablet by mouth one time a day for Anemia 06/23/2018 9:00:00 Fish Oil Capsule 1000 MG 1 capsule Capsule Oral Give 1 capsule by mouth one time a day for CVA 06/23/2018 9:00:00 06/23/2018 12:47:00 Aborted Insulin Lispro Solution Cartridge 100 UNIT/ML Solution Cartridge Subcutaneous Inject as per sliding scale: if 0 - 150=0; 151 - 200=2; 201 - 250=4; 251 - 300=6; 301 - 350=8; 351 - 400=10; 401 - 999=12 GIVE 12 UNIT AND NOTIFY , subcutaneously before meals and at bedtime for Diabetes Mellitus 06/22/2018 21:00:00 Co Q-10 Capsule 1 capsule Capsule Oral Give 1 capsule by mouth one time a day for Vitamin 06/23/2018 9:00:00 Triamterene-HCTZ Capsule 37.5-25 MG 1 capsule Capsule Oral Give 1 capsule by mouth one time a day for HTN 06/23/2018 9:00:00 Furosemide Tablet 40 MG 1 tablet Tablet Oral Give 1 tablet by mouth one time a day for HTN 06/23/2018 9:00:00 Atorvastatin Calcium Tablet 40 MG 1 tablet Tablet Oral Give 1 tablet by mouth at bedtime for Cholesterol 06/22/2018 21:00:00 HumuLIN N Suspension 100 UNIT/ML 23 unit Suspension Subcutaneous Inject 23 unit subcutaneously one time a day for Diabetes 06/23/2018 6:30:00 Keppra Tablet 750 MG 1 tablet Tablet Oral Give 1 tablet by mouth two times a day for CVA 06/23/2018 9:00:00 06/23/2018 12:49:00 Aborted Fish Oil Capsule 1000 MG 1 capsule Capsule Oral Give 1 capsule by mouth one time a day for supplement 06/24/2018 9:00:00 Fish Oil Capsule 1000 MG 1 capsule Capsule Oral Give 1 capsule by mouth one time a day for cva 06/24/2018 9:00:00 06/23/2018 12:52:00 Aborted Lyrica Capsule 25 MG 1 capsule Capsule Oral Give 1 capsule by mouth one time a day for neuropathy 06/24/2018 9:00:00 Coumadin Tablet 3 MG 1 tablet Tablet Oral Give 1 tablet via G-Tube one time a day for blood thinner 06/23/2018 17:00:00 06/29/2018 15:01:00 Aborted Keppra Tablet 750 MG 1 tablet Tablet Oral Give 1 tablet by mouth two times a day for seizure 06/23/2018 17:00:00 Carvedilol Tablet 3.125 MG 1 tablet Tablet Oral Give 1 tablet by mouth every 12 hours for CAD Hold for SBP < 110 or HR < 60 06/25/2018 21:00:00 Coumadin Tablet 4 MG 1 tablet Tablet Oral Give 1 tablet by mouth one time a day for blood thinner 06/29/2018 17:00:00 07/10/2018 14:26:00 Aborted Insulin NPH (Human) (Isophane) Suspension 100 UNIT/ML 10 unit Suspension Subcutaneous Inject 10 unit subcutaneously one time a day for dm with dinner 07/01/2018 17:00:00 Coumadin Tablet 5 MG 1 tablet Tablet Oral Give 1 tablet by mouth one time a day for blood thinner 07/10/2018 17:00:00 Results Date Test Result Interpretation Reference Range Status Notes Blood sugar 06/22/2018 21:18:12 Blood sugar 212.0 mmol/L 06/23/2018 7:11:57 Blood sugar 198.0 mmol/L 06/23/2018 12:10:20 Blood sugar 300.0 mmol/L 06/23/2018 15:57:06 Blood sugar 313.0 mmol/L 06/23/2018 21:15:54 Blood sugar 238.0 mmol/L 06/24/2018 6:52:53 Blood sugar 182.0 mmol/L 06/24/2018 6:54:14 Blood sugar 182.0 mmol/L 06/24/2018 11:50:57 Blood sugar 285.0 mmol/L 06/24/2018 19:32:15 Blood sugar 192.0 mmol/L 06/24/2018 20:19:42 Blood sugar 240.0 mmol/L 06/25/2018 7:11:06 Blood sugar 188.0 mmol/L 06/25/2018 7:21:45 Blood sugar 188.0 mmol/L 06/25/2018 12:13:43 Blood sugar 172.0 mmol/L 06/25/2018 15:32:10 Blood sugar 243.0 mmol/L 06/26/2018 6:44:09 Blood sugar 192.0 mmol/L 06/26/2018 6:44:24 Blood sugar 192.0 mmol/L 06/26/2018 12:15:37 Blood sugar 231.0 mmol/L 06/26/2018 15:40:19 Blood sugar 232.0 mmol/L 06/26/2018 21:14:32 Blood sugar 262.0 mmol/L 06/27/2018 6:50:16 Blood sugar 165.0 mmol/L 06/27/2018 6:51:03 Blood sugar 165.0 mmol/L 06/27/2018 11:28:40 Blood sugar 238.0 mmol/L 06/27/2018 16:53:17 Blood sugar 212.0 mmol/L 06/27/2018 20:06:03 Blood sugar 205.0 mmol/L 06/28/2018 7:11:45 Blood sugar 190.0 mmol/L 06/28/2018 11:46:09 Blood sugar 275.0 mmol/L 06/28/2018 16:54:22 Blood sugar 224.0 mmol/L 06/28/2018 20:20:26 Blood sugar 249.0 mmol/L 06/29/2018 7:37:16 Blood sugar 218.0 mmol/L 06/29/2018 7:37:35 Blood sugar 218.0 mmol/L 06/29/2018 13:03:46 Blood sugar 174.0 mmol/L 06/29/2018 15:33:36 Blood sugar 240.0 mmol/L 06/29/2018 20:32:37 Blood sugar 217.0 mmol/L 06/30/2018 7:26:52 Blood sugar 219.0 mmol/L 06/30/2018 7:27:08 Blood sugar 219.0 mmol/L 06/30/2018 12:07:56 Blood sugar 289.0 mmol/L 06/30/2018 16:56:31 Blood sugar 325.0 mmol/L 06/30/2018 21:27:02 Blood sugar 202.0 mmol/L 07/01/2018 7:11:34 Blood sugar 226.0 mmol/L 07/01/2018 7:11:52 Blood sugar 226.0 mmol/L 07/01/2018 12:42:39 Blood sugar 216.0 mmol/L 07/01/2018 17:44:46 Blood sugar 314.0 mmol/L 07/01/2018 20:36:11 Blood sugar 253.0 mmol/L 07/02/2018 6:55:43 Blood sugar 119.0 mmol/L 07/02/2018 6:56:10 Blood sugar 119.0 mmol/L 07/02/2018 11:36:45 Blood sugar 150.0 mmol/L 07/02/2018 16:54:01 Blood sugar 270.0 mmol/L 07/02/2018 20:00:11 Blood sugar 174.0 mmol/L 07/03/2018 8:57:30 Blood sugar 177.0 mmol/L 07/03/2018 8:57:40 Blood sugar 177.0 mmol/L 07/03/2018 10:51:58 Blood sugar 296.0 mmol/L 07/03/2018 15:44:23 Blood sugar 134.0 mmol/L 07/03/2018 20:54:10 Blood sugar 304.0 mmol/L 07/04/2018 7:05:02 Blood sugar 175.0 mmol/L 07/04/2018 11:42:04 Blood sugar 192.0 mmol/L 07/04/2018 15:59:09 Blood sugar 318.0 mmol/L 07/04/2018 20:04:24 Blood sugar 218.0 mmol/L 07/05/2018 8:13:43 Blood sugar 163.0 mmol/L 07/05/2018 8:14:13 Blood sugar 163.0 mmol/L 07/05/2018 12:05:07 Blood sugar 198.0 mmol/L 07/05/2018 16:14:10 Blood sugar 215.0 mmol/L 07/05/2018 20:33:22 Blood sugar 205.0 mmol/L 07/06/2018 6:52:14 Blood sugar 129.0 mmol/L 07/06/2018 6:52:33 Blood sugar 129.0 mmol/L 07/06/2018 12:08:33 Blood sugar 224.0 mmol/L 07/06/2018 16:46:59 Blood sugar 212.0 mmol/L 07/06/2018 21:14:26 Blood sugar 251.0 mmol/L 07/07/2018 7:07:48 Blood sugar 119.0 mmol/L 07/07/2018 7:08:22 Blood sugar 119.0 mmol/L 07/07/2018 12:30:39 Blood sugar 148.0 mmol/L 07/07/2018 15:39:56 Blood sugar 192.0 mmol/L 07/07/2018 20:48:35 Blood sugar 215.0 mmol/L 07/08/2018 7:56:09 Blood sugar 139.0 mmol/L 07/08/2018 12:54:19 Blood sugar 175.0 mmol/L 07/08/2018 16:47:10 Blood sugar 290.0 mmol/L 07/08/2018 20:53:54 Blood sugar 183.0 mmol/L 07/09/2018 7:28:22 Blood sugar 137.0 mmol/L 07/09/2018 7:31:01 Blood sugar 137.0 mmol/L 07/09/2018 12:11:05 Blood sugar 167.0 mmol/L 07/09/2018 16:14:30 Blood sugar 160.0 mmol/L 07/09/2018 20:31:54 Blood sugar 168.0 mmol/L 07/10/2018 8:07:45 Blood sugar 183.0 mmol/L 07/10/2018 8:08:03 Blood sugar 183.0 mmol/L 07/10/2018 11:49:32 Blood sugar 204.0 mmol/L 07/10/2018 16:40:22 Blood sugar 170.0 mmol/L 07/10/2018 20:14:21 Blood sugar 269.0 mmol/L 07/11/2018 7:24:37 Blood sugar 172.0 mmol/L 07/11/2018 7:30:36 Blood sugar 172.0 mmol/L Vital signs Description Observation Date PAIN LEVEL 0.0 {score} 06/23/2018 1:23:59 BODY WEIGHT (MEASURED) 189.8 [lb_av] 06/23/2018 13:10:00 BODY HEIGHT (MEASURED) 63.0 [in_i] 06/23/2018 13:10:00 INTRAVASCULAR SYSTOLIC 156.0 mm[Hg] 06/23/2018 21:05:41 INTRAVASCULAR DIASTOLIC 71.0 mm[Hg] 06/23/2018 21:05:41 HEART BEAT 77.0 {beats}/min 06/23/2018 21:05:41 PAIN LEVEL 0.0 {score} 06/24/2018 6:09:33 INTRAVASCULAR SYSTOLIC 117.0 mm[Hg] 06/24/2018 12:26:30 INTRAVASCULAR DIASTOLIC 62.0 mm[Hg] 06/24/2018 12:26:30 HEART BEAT 82.0 {beats}/min 06/24/2018 12:26:30 INTRAVASCULAR SYSTOLIC 124.0 mm[Hg] 06/24/2018 21:08:19 INTRAVASCULAR DIASTOLIC 64.0 mm[Hg] 06/24/2018 21:08:19 HEART BEAT 61.0 {beats}/min 06/24/2018 21:08:19 INTRAVASCULAR SYSTOLIC 116.0 mm[Hg] 06/25/2018 9:18:38 INTRAVASCULAR DIASTOLIC 88.0 mm[Hg] 06/25/2018 9:18:38 HEART BEAT 86.0 {beats}/min 06/25/2018 9:18:38 INTRAVASCULAR SYSTOLIC 116.0 mm[Hg] 06/25/2018 20:24:10 INTRAVASCULAR DIASTOLIC 63.0 mm[Hg] 06/25/2018 20:24:10 HEART BEAT 75.0 {beats}/min 06/25/2018 20:24:10 INTRAVASCULAR SYSTOLIC 117.0 mm[Hg] 06/26/2018 9:39:35 INTRAVASCULAR DIASTOLIC 65.0 mm[Hg] 06/26/2018 9:39:35 HEART BEAT 80.0 {beats}/min 06/26/2018 9:39:35 INTRAVASCULAR SYSTOLIC 128.0 mm[Hg] 06/27/2018 8:59:46 INTRAVASCULAR DIASTOLIC 71.0 mm[Hg] 06/27/2018 8:59:46 HEART BEAT 84.0 {beats}/min 06/27/2018 8:59:46 INTRAVASCULAR SYSTOLIC 139.0 mm[Hg] 06/27/2018 20:56:41 INTRAVASCULAR DIASTOLIC 77.0 mm[Hg] 06/27/2018 20:56:41 HEART BEAT 81.0 {beats}/min 06/27/2018 20:56:41 INTRAVASCULAR SYSTOLIC 128.0 mm[Hg] 06/28/2018 9:07:21 INTRAVASCULAR DIASTOLIC 66.0 mm[Hg] 06/28/2018 9:07:21 HEART BEAT 76.0 {beats}/min 06/28/2018 9:07:21 INTRAVASCULAR SYSTOLIC 118.0 mm[Hg] 06/28/2018 21:17:23 INTRAVASCULAR DIASTOLIC 61.0 mm[Hg] 06/28/2018 21:17:23 HEART BEAT 69.0 {beats}/min 06/28/2018 21:17:23 INTRAVASCULAR SYSTOLIC 117.0 mm[Hg] 06/29/2018 8:47:44 INTRAVASCULAR DIASTOLIC 60.0 mm[Hg] 06/29/2018 8:47:44 HEART BEAT 62.0 {beats}/min 06/29/2018 8:47:44 INTRAVASCULAR SYSTOLIC 115.0 mm[Hg] 06/30/2018 9:22:14 INTRAVASCULAR DIASTOLIC 81.0 mm[Hg] 06/30/2018 9:22:14 HEART BEAT 81.0 {beats}/min 06/30/2018 9:22:14 INTRAVASCULAR SYSTOLIC 118.0 mm[Hg] 06/30/2018 20:29:49 INTRAVASCULAR DIASTOLIC 82.0 mm[Hg] 06/30/2018 20:29:49 HEART BEAT 83.0 {beats}/min 06/30/2018 20:29:49 INTRAVASCULAR SYSTOLIC 124.0 mm[Hg] 07/01/2018 8:54:24 INTRAVASCULAR DIASTOLIC 74.0 mm[Hg] 07/01/2018 8:54:24 HEART BEAT 81.0 {beats}/min 07/01/2018 8:54:24 INTRAVASCULAR SYSTOLIC 122.0 mm[Hg] 07/01/2018 20:57:59 INTRAVASCULAR DIASTOLIC 60.0 mm[Hg] 07/01/2018 20:57:59 HEART BEAT 73.0 {beats}/min 07/01/2018 20:57:59 INTRAVASCULAR SYSTOLIC 126.0 mm[Hg] 07/02/2018 9:16:24 INTRAVASCULAR DIASTOLIC 68.0 mm[Hg] 07/02/2018 9:16:24 HEART BEAT 71.0 {beats}/min 07/02/2018 9:16:24 INTRAVASCULAR SYSTOLIC 132.0 mm[Hg] 07/03/2018 9:35:29 INTRAVASCULAR DIASTOLIC 73.0 mm[Hg] 07/03/2018 9:35:29 HEART BEAT 84.0 {beats}/min 07/03/2018 9:35:29 INTRAVASCULAR SYSTOLIC 118.0 mm[Hg] 07/04/2018 8:50:02 INTRAVASCULAR DIASTOLIC 89.0 mm[Hg] 07/04/2018 8:50:02 HEART BEAT 71.0 {beats}/min 07/04/2018 8:50:02 INTRAVASCULAR SYSTOLIC 129.0 mm[Hg] 07/04/2018 21:42:46 INTRAVASCULAR DIASTOLIC 62.0 mm[Hg] 07/04/2018 21:42:46 HEART BEAT 78.0 {beats}/min 07/04/2018 21:42:46 INTRAVASCULAR SYSTOLIC 122.0 mm[Hg] 07/05/2018 9:21:26 INTRAVASCULAR DIASTOLIC 65.0 mm[Hg] 07/05/2018 9:21:26 HEART BEAT 70.0 {beats}/min 07/05/2018 9:21:26 INTRAVASCULAR SYSTOLIC 129.0 mm[Hg] 07/05/2018 20:35:01 INTRAVASCULAR DIASTOLIC 68.0 mm[Hg] 07/05/2018 20:35:01 HEART BEAT 84.0 {beats}/min 07/05/2018 20:35:01 INTRAVASCULAR SYSTOLIC 126.0 mm[Hg] 07/06/2018 9:28:59 INTRAVASCULAR DIASTOLIC 74.0 mm[Hg] 07/06/2018 9:28:59 HEART BEAT 81.0 {beats}/min 07/06/2018 9:28:59 INTRAVASCULAR SYSTOLIC 105.0 mm[Hg] 07/07/2018 14:58:40 INTRAVASCULAR DIASTOLIC 63.0 mm[Hg] 07/07/2018 14:58:40 HEART BEAT 78.0 {beats}/min 07/07/2018 14:58:40 INTRAVASCULAR SYSTOLIC 126.0 mm[Hg] 07/08/2018 9:57:19 INTRAVASCULAR DIASTOLIC 67.0 mm[Hg] 07/08/2018 9:57:19 HEART BEAT 80.0 {beats}/min 07/08/2018 9:57:19 INTRAVASCULAR SYSTOLIC 115.0 mm[Hg] 07/08/2018 21:12:11 INTRAVASCULAR DIASTOLIC 60.0 mm[Hg] 07/08/2018 21:12:11 HEART BEAT 75.0 {beats}/min 07/08/2018 21:12:11 INTRAVASCULAR SYSTOLIC 142.0 mm[Hg] 07/09/2018 10:07:29 INTRAVASCULAR DIASTOLIC 83.0 mm[Hg] 07/09/2018 10:07:29 HEART BEAT 88.0 {beats}/min 07/09/2018 10:07:29 INTRAVASCULAR SYSTOLIC 131.0 mm[Hg] 07/09/2018 20:49:06 INTRAVASCULAR DIASTOLIC 75.0 mm[Hg] 07/09/2018 20:49:06 HEART BEAT 75.0 {beats}/min 07/09/2018 20:49:06 INTRAVASCULAR SYSTOLIC 137.0 mm[Hg] 07/10/2018 8:46:22 INTRAVASCULAR DIASTOLIC 67.0 mm[Hg] 07/10/2018 8:46:22 HEART BEAT 90.0 {beats}/min 07/10/2018 8:46:22 INTRAVASCULAR SYSTOLIC 122.0 mm[Hg] 07/10/2018 20:43:49 INTRAVASCULAR DIASTOLIC 77.0 mm[Hg] 07/10/2018 20:43:49 HEART BEAT 90.0 {beats}/min 07/10/2018 20:43:49 INTRAVASCULAR SYSTOLIC 129.0 mm[Hg] 07/11/2018 9:22:36 INTRAVASCULAR DIASTOLIC 60.0 mm[Hg] 07/11/2018 9:22:36 HEART BEAT 87.0 {beats}/min 07/11/2018 9:22:36 Social History Smoking Status Start Date End Date Unknown if ever smoked 07/11/2018 13:44:46
--- OUTSIDE RECORDS SUMMARY | 2018-12-04 18:59 | XMS REPORT ---
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 Active Problem Type 2 diabetes mellitus with other circulatory complication, 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 Active Problem Coronary artery disease involving [place] coronary artery of [place] heart without angina pectoris I25.10 Active Problem 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 Problem Acute on chronic systolic congestive heart failure I50.23 Active Problem Gastrointestinal hemorrhage associated with chronic gastritis K29.51 Active Problem Cerebrovascular accident (CVA), unspecified mechanism I63.9 Active Problem HTN (hypertension) I10 Active Problem Peptic ulcer disease K27.9 Active Problem Vertigo R42 Active Assessment Acute on chronic systolic congestive heart failure I50.23 Active Assessment Cerebrovascular accident (CVA), unspecified mechanism I63.9 Active Assessment Type 2 diabetes mellitus with other circulatory complication, 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 Assessment HTN (hypertension) I10 Active Medications Medication Code System Code Instructions Start Date End Date Status Dosage Eliquis [facility] 573879 2.5 mg orally 2 times a day Active 1 tab([place]) [place] [address] - orally once a day Active 17 [place] [address] 100 mg orally once a day September 02, 2016 December 01, 2016 Active 1 tab([place]) [place] [address] 40 mg orally once a day Jun 24, 2016 Active 1 tab([place]) [place] [address] 25 mcg (0.025 mg) orally once a day May 03, 2014 Active 1 tab([place]) [place] [address] 500 mg orally 2 times a day September 09, 2014 Active 1 tab([place]) [place] [address] 325 mg orally once a day Active 1 tab(s) glipizide NDC 39353 10 mg orally Twice a day Active 1 tab(s) pantoprazole NDC 97094 40 mg orally once a day May 27, 2016 Active 1 tab(s) atorvastatin NDC 52006 40 mg orally once a day (at bedtime) Active 1 tab(s) Co Q-10 NDC 933524 100 mg orally once a day Active 1 cap(s) Lyrica NDC 80643 25 mg orally once a day Active 1 cap(s) Levemir NDC 29655 100 units/mL subcutaneously Once daily September 30, 2016 Active 20 units Savaysa NDC 750382 30 mg orally once a day Active 1 tab(s) Ultram NDC 4526 50 mg orally every 6 hours PRN Jul 15, 2016 Active 1 tab(s) gabapentin NDC 89206 300 mg orally Once daily Active 1 cap(s) Vital Signs Date/Time: September 30, 2016 BMI 34.67 Index Height 64 in Weight 202 lbs Respiratory Rate 18 /min Blood Pressure Diastolic 88 mm Hg Blood Pressure Systolic 132 mm Hg Cardiac Monitoring Heart Rate 70 /min Results No Known Results Summary Purpose eClinicalWorks Submission
--- OUTSIDE RECORDS SUMMARY | 2018-12-04 18:59 | XMS REPORT ---
Author Author REMA WOOD Organization eClinicalWorks Address Unknown Phone Unavailable Care Team Providers Care Vice President Medical Affairs Name Role Phone REMA WOOD Unavailable Allergies, Adverse Reactions, Alerts Substance Reaction Event Type penicillin hives Drug Allergy Encounters Encounter Location Date Unknown [facility], [facility], [facility] May 27, 2016 Problems Problem Type Condition ICD-9 Code Onset Dates Condition Status Problem 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 Active Problem Type 2 diabetes mellitus with other circulatory complication, 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 Active Problem Coronary artery disease involving [place] coronary artery of [place] heart without angina pectoris I25.10 Active Problem 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 Problem Acute on chronic systolic congestive heart failure I50.23 Active Problem Gastrointestinal hemorrhage associated with chronic gastritis K29.51 Active Problem Cerebrovascular accident (CVA), unspecified mechanism I63.9 Active Problem HTN (hypertension) I10 Active Problem Peptic ulcer disease K27.9 Active Problem Vertigo R42 Active Assessment HTN (hypertension) I10 Active Assessment Acute on chronic systolic congestive heart failure I50.23 Active Assessment Coronary artery disease involving [place] coronary artery of [place] heart without angina pectoris I25.10 Active Assessment 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 Assessment Type 2 diabetes mellitus with other circulatory complication, 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 Assessment Gastrointestinal hemorrhage associated with chronic gastritis K29.51 Active Assessment Cerebrovascular accident (CVA), unspecified mechanism I63.9 Active Medications Medication Code System Code Instructions Start Date End Date Status Dosage glipizide MULTUM 53389 10 mg orally Twice a day Active 1 tab(s) Januvia MULTUM 46443 50MG Inactive TAKE ONE TABLET BY MOUTH TWICE DAILY MiraLax MULTUM 85411 - orally once a day Active 17 g levetiracetam MULTUM 08547 500 mg orally 2 times a day September 09, 2014 Active 1 tab(s) Eliquis MULTUM 877371 2.5 mg orally 2 times a day Active 1 tab(s) Ultram MULTUM 4526 50 mg orally every 6 hours PRN Jul 15, 2016 Active 1 tab(s) levothyroxine MULTUM 69251 25 mcg (0.025 mg) orally once a day May 03, 2014 Active 1 tab(s) Co Q-10 MULTUM 590333 100 mg orally once a day Active 1 cap(s) Plavix MULTUM 72003 75 mg orally once a day Jun 24, 2016 Inactive 1 tab(s) Savaysa MULTUM 426387 30 mg orally once a day Active 1 tab(s) furosemide MULTUM 66669 40 mg orally once a day Jun 24, 2016 Active 1 tab(s) atorvastatin MULTUM 66908 40 mg orally once a day (at bedtime) Active 1 tab(s) gabapentin MULTUM 92475 300 mg orally Once daily Active 1 cap(s) Lyrica MULTUM 20458 25 mg orally Twice a day Inactive 1 cap(s) pantoprazole MULTUM 94364 40 mg orally once a day May 27, 2016 Active 1 tab(s) Social History Social History Element Qualifiers Date Reported Tobacco Use: . Are you a: Never Smoker August 12, 2016 caffeine yes. caffeine Yes 2 cups per day August 12, 2016 alcohol no. alcohol No August 12, 2016 Children: . sons:1 daughters:1 August 12, 2016 Marital Status: . August 12, 2016 Exercise: no. Do you exercise? No August 12, 2016 Vital Signs Date/Time: August 12, 2016 Height 64 in Weight 202 lbs Respiratory Rate 18 /min Blood Pressure Diastolic 74 mm Hg Blood Pressure Systolic 122 mm Hg Cardiac Monitoring Heart Rate 65 /min Summary Purpose eClinicalWorks Submission
--- OUTSIDE RECORDS SUMMARY | 2018-12-04 18:59 | XMS REPORT ---
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 Active Problem Type 2 diabetes mellitus with other circulatory complication, 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 Active Problem Coronary artery disease involving [place] coronary artery of [place] heart without angina pectoris I25.10 Active Problem [...] Active Assessment HTN (hypertension) I10 Active Assessment Cerebrovascular accident (CVA), unspecified mechanism I63.9 Active Assessment Acute on chronic systolic congestive heart failure I50.23 Active Assessment 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 Assessment Type 2 diabetes mellitus with other circulatory complication, 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 Medications Medication Code System Code Instructions Start Date End Date Status Dosage Ultram NDC 4526 50 mg orally every 6 hours PRN Jul 15, 2016 Active 1 tab(s) glipizide NDC 10617 10 mg orally Twice a day Active 1 tab(s) Eliquis NDC 763244 2.5 mg orally 2 times a day Active 1 tab(s) Lyrica NDC 11235 25 mg orally once a day Active 1 cap(s) ferrous fumarate NDC 91773 325 mg orally once a day Active 1 tab(s) Januvia NDC 27065 100 mg orally once a day September 02, 2016 December 01, 2016 Active 1 tab(s) levothyroxine NDC 65729 25 mcg (0.025 mg) orally once a day May 03, 2014 Active 1 tab(s) furosemide NDC 26494 40 mg orally once a day Jun 24, 2016 Active 1 tab(s) Savaysa NDC 786811 30 mg orally once a day Active 1 tab(s) pantoprazole NDC 87358 40 mg orally once a day May 27, 2016 Active 1 tab(s) Januvia NDC 42283 50 mg orally once a day Inactive 1 tab(s) gabapentin NDC 87958 300 mg orally Once daily Active 1 cap(s) levetiracetam NDC 51194 500 mg orally 2 times a day September 09, 2014 Active 1 tab(s) Co Q-10 NDC 634657 100 mg orally once a day Active 1 cap(s) MiraLax NDC 39585 - orally once a day Active 17 g atorvastatin NDC 76360 40 mg orally once a day (at bedtime) Active 1 tab(s) Vital Signs Date/Time: September 02, 2016 BMI 35.53 Index Height 64 in Weight 207 lbs Respiratory Rate 18 /min Blood Pressure Diastolic 72 mm Hg Blood Pressure Systolic 131 mm Hg Cardiac Monitoring Heart Rate 65 /min Results No Known Results Summary Purpose eClinicalWorks Submission
--- OUTSIDE RECORDS SUMMARY | 2018-12-04 18:59 | XMS REPORT ---
[facility] Address Unknown Phone Unavailable Care Team Providers Care Rivet Tester Name Role Phone Ernesto LIU Unavailable Unavailable Yaneth Tripathi Unavailable Unavailable ADELSO JACKSON Unavailable Unavailable Addy Mondragon Unavailable Unavailable Allen Chapa Unavailable Unavailable PHYSICIAN, OF [facility] Unavailable Unavailable MAMADOU HAYNES Unavailable Unavailable Problems This patient has no known problems. Allergies, Adverse Reactions, Alerts This patient has no known allergies or adverse reactions. Medications This patient has no known medications. Results Test Description Test Time Test Comments Text Results Atomic Results Result Comments CHEST 2 VIEWS 2018-10-11 21:41:00 [place] [address] Patient Name: ÁNGELA WASHINGTON MR #: [id number] : 1935 Age/Sex: 82/F Req #: [id number] Adm Physician: Ordered by: KENDALL LIU MD Report #: [id number] Location: ER Room/Bed: Procedure: [id number] DX/CHEST 2 VIEWS Exam Date: 10/11/18 Exam Time: 2054 REPORT STATUS: Signed EXAMINATION: CHEST 2 VIEWS INDICATION: ABD PAIN [id number] COMPARISON: None available FINDINGS: PA and lateral views TUBES and LINES: Left chest wall single lead cardiac device in place. Distal tip projecting over the right ventricle. Right upper lobe nodular density, likely a calcified granuloma. LUNGS: Lungs are well inflated. Mild central vascular congestion. PLEURA: No pleural effusion or pneumothorax. HEART AND MEDIASTINUM: The cardiomediastinal silhouette is enlarged. Median sternotomy wires and mediastinal surgical clips. Aorta is tortuous. BONES AND SOFT TISSUES: No acute osseous lesion. Soft tissues are unremarkable. UPPER ABDOMEN: No free air under the diaphragm. IMPRESSION: Enlarged cardiomediastinal silhouette and mild central vascular congestion. Signed by: Dr. Santosh Finn MD on 10/11/2018 9:43 PM Dictated By: SANTOSH FINN MD 42 Transcribed By: MALIA on 10/11/182142 COPY TO: KENDALL LIU MD Chemistry - BNP, HgbA1c, PTHi 2018-06-16 14:29:00 Chemistry - BNP, HgbA1c, PTHi (test code=BNP) 180.7 pg/mL 0-100 [id number] 14:17:00* Test Item Value Reference Range Comments Chemistry (test code=NA-T) 136 mmol/L 136-145 Chemistry (test code=K-T) 4.2 mmol/L 3.5-5.1 Chemistry (test code=CL) 101 mmol/L 98-107 Chemistry (test code=CO2) 25 mmol/L 23-31 Chemistry (test code=ANGP) 14 mmol/L 10-20 Chemistry (test code=BUN) 16 mg/dL 9.8-20.1 Chemistry (test code=CREATT) 0.97 mg/dL 0.6-1.1 Chemistry (test code=EGFRMDRD) 55 Reference Range for Estimated GFR: Greater than 90 mL/min/1.73 m2NOTE:The MDRD equation has not been validated for use with theelderly (over 70 years of age), women, patien tswith serious comorbid condition or persons with extremes ofbody size, muscle mass, or nutritional status. Chemistry (test code=GLU-T) 295 mg/dL 83-110 Chemistry (test code=CA) 9.0 mg/dL 7.8-10.44 [id number] 14:09:00* Test Item Value Reference Range Comments Hematology (test code=WBCT) 6.1 thou/uL 4.8-10.8 Hematology (test code=RBCT) 4.05 mill/uL 4.20-5.40 Hematology (test code=HGBT) 9.9 g/dL 12.0-16.0 Hematology (test code=HCTT) 31.9 % 36.0-47.0 Hematology (test code=MCV) 78.9 fL 78.0-98.0 Hematology (test code=MCH) 24.5 pg 27.0-31.0 Hematology (test code=MCHC) 31.0 g/dL 32.0-36.0 Hematology (test code=RDW) 14.2 % 11.5-14.5 Hematology (test code=PLTT) 256 thou/uL 130-400 Hematology (test code=MPV) 6.0 fL 7.4-10.4 Hematology (test code=%NEUT) 57.7 % 42.0-75.0 Hematology (test code=%LYMPH) 26.9 % 21.0-51.0 Hematology (test code=%MONO) 10.8 % 0.0-10.0 Hematology (test code=%EOS) 3.0 % 0.0-10.0 Hematology (test code=%BASO) 1.5 % 0.0-1.0 Hematology (test code=NEUT#) 3.5 thou/uL 1.40-6.50 Hematology (test code=LYMPH#) 1.6 thou/uL 1.20-3.40 Hematology (test code=MONO#) 0.7 thou/uL 0.11-0.59 Hematology (test code=EOS#) 0.2 thou/uL 0.0-0.7 Hematology (test code=BASO#) 0.1 thou/uL 0.0-0.2 Chemistry - BNP, HgbA1c, [id number] 12:39:00* Test Item Value Reference Range Comments Chemistry - BNP, HgbA1c, PTHi (test code=BNP) 117.0 pg/mL 0-100 [id number] 12:30:00* Test Item Value Reference Range Comments Chemistry (test code=NA-T) 133 mmol/L 136-145 Chemistry (test code=K-T) 4.4 mmol/L 3.5-5.1 Chemistry (test code=CL) 100 mmol/L 98-107 Chemistry (test code=CO2) 22 mmol/L 23-31 Chemistry (test code=ANGP) 15 mmol/L 10-20 Chemistry (test code=BUN) 19 mg/dL 9.8-20.1 Chemistry (test code=CREATT) 1.13 mg/dL 0.6-1.1 Chemistry (test code=EGFRMDRD) 46 Reference Range for Estimated GFR: Greater than 90 mL/min/1.73 m2NOTE:The MDRD equation has not been validated for use with theelderly (over 70 years of age), women, patien tswith serious comorbid condition or persons with extremes ofbody size, muscle mass, or nutritional status. Chemistry (test code=GLU-T) 225 mg/dL 83-110 Chemistry (test code=CA) 9.1 mg/dL 7.8-10.44 Chemistry (test code=TBILI) 0.4 mg/dL 0.2-1.2 Chemistry (test code=TP) 7.1 g/dL 6.0-8.3 Chemistry (test code=ALB) 3.6 g/dL 3.4-4.8 Chemistry (test code=GLOB) 3.5 g/dL 2.4-3.5 Chemistry (test code=AG) 1.0 g/dL 1.2-2.2 Chemistry (test code=ALP) 84 U/L 40-150 Chemistry (test code=AST) 12 U/L 5-34 Chemistry (test code=ALT) 13 U/L 8-55 [id number] 12:23:00* Test Item Value Reference Range Comments Urinalysis (test code=UACLR) Yellow Yellow Urinalysis (test code=UACLY) Clear Clear Urinalysis (test code=SPGR) 1.010 1.005-1.030 Urinalysis (test code=BHVAIK) 6.0 5.0-9.0 Urinalysis (test code=UALEU) Negative Negative Urinalysis (test code=UANIT) Negative Negative Urinalysis (test code=PROUADIP) Negative mg/dL Neg-Trace Urinalysis (test code=GLUCU) Negative mg/dL Negative Urinalysis (test code=KETU) Negative mg/dL Negative Urinalysis (test code=UAUROB) 0.2 mg/dL 0.2-1.0 Urinalysis (test code=UABIL) Negative Negative Urinalysis (test code=UABLD) Negative Negative Urine Source: Urine Straight [id number] 12:13:00* Test Item Value Reference Range Comments Hematology (test code=WBCT) 6.9 thou/uL 4.8-10.8 Hematology (test code=RBCT) 4.04 mill/uL 4.20-5.40 Hematology (test code=HGBT) 10.1 g/dL 12.0-16.0 Hematology (test code=HCTT) 31.4 % 36.0-47.0 Hematology (test code=MCV) 77.7 fL 78.0-98.0 Hematology (test code=MCH) 25.1 pg 27.0-31.0 Hematology (test code=MCHC) 32.2 g/dL 32.0-36.0 Hematology (test code=RDW) 13.9 % 11.5-14.5 Hematology (test code=PLTT) 289 thou/uL 130-400 Hematology (test code=MPV) 5.7 fL 7.4-10.4 Hematology (test code=%NEUT) 55.9 % 42.0-75.0 Hematology (test code=%LYMPH) 28.0 % 21.0-51.0 Hematology (test code=%MONO) 11.6 % 0.0-10.0 Hematology (test code=%EOS) 3.5 % 0.0-10.0 Hematology (test code=%BASO) 1.1 % 0.0-1.0 Hematology (test code=NEUT#) 3.8 thou/uL 1.40-6.50 Hematology (test code=LYMPH#) 1.9 thou/uL 1.20-3.40 Hematology (test code=MONO#) 0.8 thou/uL 0.11-0.59 Hematology (test code=EOS#) 0.2 thou/uL 0.0-0.7 Hematology (test code=BASO#) 0.1 thou/uL 0.0-0.2 [id number] 11:56:00* Test Item Value Reference Range Comments Accuchek (test code=ACU) 225 mg/dL 70-110 Culture, [id number] 11:48:00* Test Item Value Reference Range Comments Culture, Urine (test code=URC) NF Culture, Urine (test code=URC1) 25 MSF [id number] 10:54:00* Test Item Value Reference Range Comments Accuchek (test code=ACU) 168 mg/dL 70-110 REPORT RESULTNOTIFIED NURSE [id number] 09:58:00* Test Item Value Reference Range Comments Urinalysis (test code=UACLR) Yellow Yellow Urinalysis (test code=UACLY) Clear Clear Urinalysis (test code=SPGR) 1.010 1.005-1.030 Urinalysis (test code=BHAVIK) 6.0 5.0-9.0 Urinalysis (test code=UALEU) Negative Negative Urinalysis (test code=UANIT) Negative Negative Urinalysis (test code=PROUADIP) Negative mg/dL Neg-Trace Urinalysis (test code=GLUCU) Negative mg/dL Negative Urinalysis (test code=KETU) Negative mg/dL Negative Urinalysis (test code=UAUROB) 0.2 mg/dL 0.2-1.0 Urinalysis (test code=UABIL) Negative Negative Urinalysis (test code=UABLD) Negative Negative Urine Source: Urine [id number] 14:22:00* Test Item Value Reference Range Comments Coagulation (test code=PT-T) 14.9 SEC 12.0-14.7 Coagulation (test code=INR) 1.2 ATTENTION: READ CAREFULLY The recommended therapeutic ranges for oral anticoagulanttreatments are: Low Intensity: 1.5 - 2.0 Moderate Intensity: 2.0 - 3.0 High Intensity (1): 2.5 - 3.5 High Intensity (2): 3.0 - 4.0 CRITICAL: > 4.0 [id number] 14:34:00* Test Item Value Reference Range Comments Coagulation (test code=PT-T) 14.1 SEC 12.0-14.7 Coagulation (test code=INR) 1.1 ATTENTION: READ CAREFULLY The recommended therapeutic ranges for oral anticoagulanttreatments are: Low Intensity: 1.5 - 2.0 Moderate Intensity: 2.0 - 3.0 High Intensity (1): 2.5 - 3.5 High Intensity (2): 3.0 - 4.0 CRITICAL: > 4.0 [id number] 14:39:00* Test Item Value Reference Range Comments Coagulation (test code=PT-T) 14.1 SEC 12.0-14.7 Coagulation (test code=INR) 1.1 ATTENTION: READ CAREFULLY The recommended therapeutic ranges for oral anticoagulanttreatments are: Low Intensity: 1.5 - 2.0 Moderate Intensity: 2.0 - 3.0 High Intensity (1): 2.5 - 3.5 High Intensity (2): 3.0 - 4.0 CRITICAL: > 4.0 [id number] 20:20:00* Test Item Value Reference Range Comments Coagulation (test code=PT-T) 13.8 SEC 12.0-14.7 Coagulation (test code=INR) 1.1 ATTENTION: READ CAREFULLY The recommended therapeutic ranges for oral anticoagulanttreatments are: Low Intensity: 1.5 - 2.0 Moderate Intensity: 2.0 - 3.0 High Intensity (1): 2.5 - 3.5 High Intensity (2): 3.0 - 4.0 CRITICAL: > 4.0 [id number] 13:18:00* Test Item Value Reference Range Comments Coagulation (test code=PT-T) 13.6 SEC 12.0-14.7 Coagulation (test code=INR) 1.0 ATTENTION: READ CAREFULLY The recommended therapeutic ranges for oral anticoagulanttreatments are: Low Intensity: 1.5 - 2.0 Moderate Intensity: 2.0 - 3.0 High Intensity (1): 2.5 - 3.5 High Intensity (2): 3.0 - 4.0 CRITICAL: > 4.0 [id number] 16:51:00* Test Item Value Reference Range Comments Coagulation (test code=PT-T) 13.5 SEC 12.0-14.7 Coagulation (test code=INR) 1.0 ATTENTION: READ CAREFULLY The recommended therapeutic ranges for oral anticoagulanttreatments are: Low Intensity: 1.5 - 2.0 Moderate Intensity: 2.0 - 3.0 High Intensity (1): 2.5 - 3.5 High Intensity (2): 3.0 - 4.0 CRITICAL: > 4.0 Aiazvpqdjcu9710-50-39 07:41:00* Test Item Value Reference Range Comments Coagulation (test code=PT-T) 14.0 SEC 12.0-14.7 Coagulation (test code=INR) 1.1 ATTENTION: READ CAREFULLY The recommended therapeutic ranges for oral anticoagulanttreatments are: Low Intensity: 1.5 - 2.0 Moderate Intensity: 2.0 - 3.0 High Intensity (1): 2.5 - 3.5 High Intensity (2): 3.0 - 4.0 CRITICAL: > 4.0 [id number] 09:48:00* Test Item Value Reference Range Comments Urinalysis (test code=UACLR) Yellow Yellow Urinalysis (test code=UACLY) Clear Clear Urinalysis (test code=SPGR) 1.015 1.005-1.030 Urinalysis (test code=BHAVIK) 7.0 5.0-9.0 Urinalysis (test code=UALEU) Negative Negative Urinalysis (test code=UANIT) Negative Negative Urinalysis (test code=PROUADIP) Negative mg/dL Neg-Trace Urinalysis (test code=GLUCU) Negative mg/dL Negative Urinalysis (test code=KETU) Negative mg/dL Negative Urinalysis (test code=UAUROB) 0.2 mg/dL 0.2-1.0 Urinalysis (test code=UABIL) Negative Negative Urinalysis (test code=UABLD) Negative Negative Urine Source: Urine VoidedChemistry - BNP, HgbA1c, [id number] 09:28:00* Test Item Value Reference Range Comments Chemistry - BNP, HgbA1c, PTHi (test code=BNP) 75.4 pg/mL 0-100 [id number] 09:26:00* Test Item Value Reference Range Comments Hematology (test code=WBCT) 5.2 thou/uL 4.8-10.8 Hematology (test code=RBCT) 4.33 mill/uL 4.20-5.40 Hematology (test code=HGBT) 12.4 g/dL 12.0-16.0 Hematology (test code=HCTT) 37.7 % 36.0-47.0 Hematology (test code=MCV) 87.0 fl 81.0-99.0 Hematology (test code=MCH) 28.8 pg 27.0-31.0 Hematology (test code=MCHC) 33.0 g/dL 32.0-36.0 Hematology (test code=RDW) 14.0 % 11.5-14.5 Hematology (test code=PLTT) 189 thou/uL 130-400 Hematology (test code=MPV) 6.6 fL 7.4-10.4 Hematology (test code=NE) 57 % 42-75 Hematology (test code=LY) 31 % 21-51 Hematology (test code=MO) 9 % 0-10 Hematology (test code=EO) 3 % 0-10 Hematology (test code=AN) SLIGHT=6-15 cells (100X) 0-5/hpf Hematology (test code=PCOMMENT) Appears Adequate [id number] 09:24:00* Test Item Value Reference Range Comments Chemistry (test code=CKMBM-T) 2.0 ng/mL 0-6.6 Chemistry (test code=TROPI-T) Less than 0.010 ng/mL < 0.028 Reference Range 0.00 - 0.028 ng/mL Negative 0.029 - 0.29 ng/mL Indeterminate Greater or Equal to 0.3 ng/mL Strongly suggests [place] [id number] 09:23:00* Test Item Value Reference Range Comments Chemistry (test code=NA-T) 136 mmol/L 136-145 Chemistry (test code=K-T) 4.7 mmol/L 3.5-5.1 Chemistry (test code=CL) 101 mmol/L 98-107 Chemistry (test code=CO2) 22 mmol/L 23-31 Chemistry (test code=ANGP) 18 mmol/L 10-20 Chemistry (test code=BUN) 17 mg/dL 9.8-20.1 Chemistry (test code=CREATT) 0.92 mg/dL 0.6-1.1 Chemistry (test code=EGFRMDRD) 59 Reference Range for Estimated GFR: Greater than 90 mL/min/1.73 m2NOTE:The MDRD equation has not been validated for use with theelderly (over 70 years of age), women, patien tswith serious comorbid condition or persons with extremes ofbody size, muscle mass, or nutritional status. Chemistry (test code=GLU-T) 176 mg/dL 83-110 Chemistry (test code=CA) 8.8 mg/dL 7.8-10.44 [id number] 09:21:00* Test Item Value Reference Range Comments Accuchek (test code=ACU) 174 mg/dL 70-110
[2018-12-04 19:44] LABS: BASOPHILS # (AUTO) 0.1 (0.0-0.1); BASOPHILS % 0.7 % (0.0-1.0); EOSINOPHILS # (AUTO) 0.3 (0.0-0.4); EOSINOPHILS % 4.5 % (0.0-6.0); HEMATOCRIT 31.9 % (34.2-44.1); HEMOGLOBIN 10.6 g/dL (12.0-16.0); LYMPHOCYTES # (AUTO) 1.9 (1.0-3.2); LYMPHOCYTES % 28.5 % (18.0-39.1); MEAN CORPUSCULAR HEMOGLOBIN 29.8 pg (28-32); MEAN CORPUSCULAR HGB CONC 33.2 g/dL (31-35); MEAN CORPUSCULAR VOLUME 89.6 fL (81-99); MONOCYTES # (AUTO) 0.8 (0.2-0.8); MONOCYTES % 11.3 % (4.4-11.3); NEUTROPHILS # (AUTO) 3.7 (2.1-6.9); NEUTROPHILS % 54.3 % (38.7-80.0); PLATELET COUNT 223 x10e3/uL (140-360); RED BLOOD COUNT 3.56 x10e6/uL (3.6-5.1); RED CELL DISTRIBUTION WIDTH 14.6 % (11.7-14.4)
[2018-12-04 19:57] LABS: INR 1.94; PROTHROMBIN TIME 22.8 seconds (11.9-14.5)
[2018-12-04 19:58] LABS: PARTIAL THROMBOPLASTIN TIME 39.8 seconds (23.8-35.5)
[2018-12-04 20:23] LABS: CHLORIDE 99 mmol/L (98-107); POTASSIUM 4.3 mmol/L (3.5-5.1); SODIUM 131 mmol/L (136-145)
[2018-12-04 20:24] LABS: ALANINE AMINOTRANSFERASE 31 IU/L (0-55); ALBUMIN 3.1 g/dL (3.5-5.0); ALBUMIN/GLOBULIN RATIO 0.9 (0.8-2.0); ANION GAP 13.3 mmol/L (8-16); BLOOD UREA NITROGEN 18 mg/dL (7-26); BUN/CREATININE RATIO 16 (6-25); CALCIUM 8.7 mg/dL (8.4-10.2); CARBON DIOXIDE 23 mmol/L (22-29); CREATININE, SERUM 1.15 mg/dL (0.57-1.11); EST GLOMERULAR FILTRATION RATE 45 ML/MIN (60-); GLUCOSE 351 mg/dL (74-118)
--- NOTE | 2018-12-04 20:26 | Diagnostic Imaging Report ---
A single frontal view of the chest. HISTORY: CHEST PAIN, right side, arm pain COMPARISON: Chest radiograph October 11, 2018 and April 24, 2015. DISCUSSION: Portable technique, limits sensitivity of the exam. Soft tissue attenuation partially limits sensitivity of the exam. Multiple overlying monitoring leads. Tubes/Lines: A left-sided implanted cardiac device. Lungs and pleura: Low lung volumes result in bibasilar vascular crowding, accentuation of the pulmonary interstitial markings, central pulmonary vasculature, and the cardiac silhouette. Allowing for these limitations, the findings are as follows: Diffusely increased interstitial markings. More confluent patchy central predominant opacities. A stable 4 mm calcific density projecting at the right upper lung, compatible with a calcified granuloma. No definite pleural effusion or pneumothorax is identified. Heart and mediastinum: The cardiac silhouette and central pulmonary vasculature are enlarged. Bones and soft tissues: Multiple median sternotomy wires. IMPRESSION: Findings compatible with volume overload resulting in central pulmonary vascular congestion and moderate pulmonary edema. Signed by: Dr. Josue Blas D.O., M.M.M. on 12/04/2018 8:23 PM
[2018-12-04] MEDS ORDERED: ONDANSETRON HCL INJ 2MG/ML 2ML 2 MG/ML VIAL IV ONE (20:38)
[2018-12-04] MEDS ORDERED: MORPHINE SULFATE 2 MG/ML SYR 1ML IV STA (20:38)
[2018-12-04 20:44] LABS: BILIRUBIN,URINE NEGATIVE (NEGATIVE); CLARITY,URINE CLEAR (CLEAR); COLOR,URINE YELLOW (YELLOW); KETONES,URINE NEGATIVE (NEGATIVE); LEUKOCYTE ESTERASE ,URINE TRACE (NEGATIVE); NITRITE,URINE NEGATIVE (NEGATIVE); PROTEIN,URINE DIPSTICK NEGATIVE (NEGATIVE); URINE UROBILINOGEN 0.2 mg/dL (0.2 - 1)
[2018-12-04] MEDS ORDERED: FUROSEMIDE INJ 10 MG/ML 4 ML VIAL IV ONE (20:45)
[2018-12-04 20:57] LABS: EPITHELIAL CELLS,URINE MODERATE /LPF; HYALINE CASTS 0-1 (0-1)
[2018-12-04] MEDS ORDERED: MORPHINE SULFATE INJ 4 MG/ML INJ 1ML IV ONE (21:00)
--- NOTE | 2018-12-04 21:18 | Diagnostic Imaging Report ---
Exam: Left shoulder 2 views History: Pain Comparison: None. Findings: No fracture or malalignment. 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 No abnormal soft tissue calcification or soft tissue defect. Impression: No acute osseous abnormality Signed by: Dr. Vinod Crawley M.D. on 12/04/2018 9:14 PM
[2018-12-04] MEDS ORDERED: PREDNISONE20 MG PO (21:23)
[2018-12-04] MEDS ORDERED: LASIX40 MG PO (21:23)
[2018-12-04] MEDS ORDERED: LIDOCAINE 5% PATCH TP ONE (21:30)
[2018-12-04] MEDS ORDERED: DIPHENHYDRAMINE HCL INJ 50 MG/ML VIAL IV ONE (22:00)
[2018-12-04 22:29] VITALS: BP 5/4
[2018-12-05 00:56] LABS: ALKALINE PHOSPHATASE 87 IU/L (40-150); CREATINE KINASE 89 IU/L (29-168)
== END 2018-12-04 22:40 | disposition home or self-care (01) ==
LOC: ER 18:50
DX: R07.89 Other chest pain (principal); M25.512 Pain in left shoulder; R47.02 Dysphasia; I10 Essential (primary) hypertension; E11.9 Type 2 diabetes mellitus without complications; E78.5 Hyperlipidemia, unspecified; R13.10 Dysphagia, unspecified; Z86.73 Personal history of transient ischemic attack (TIA), and cerebral infarction without residual deficits; Z88.0 Allergy status to penicillin; Z88.8 Allergy status to other drugs, medicaments and biological substances; Z83.3 Family history of diabetes mellitus; Z82.49 Family history of ischemic heart disease and other diseases of the circulatory system; Z79.82 Long term (current) use of aspirin
CPT/HCPCS: 36415; 71045; 73030; 80053; 81001; 82550; 82553; 83880; 84484; 85025; 85610; 85730; 93005; 96374; 99284; J1200; J1940; J2270; J2405

== ENCOUNTER 2018-12-11 13:15 | Observation (INO) | payer MEDICARE, BC ==
[~2018-12-11] VITALS: Ht 162.6 cm; Wt 102.1 kg
[~2018-12-11 13:15] MED LIST changes: +PREDNISONE20 MG PO
--- OUTSIDE RECORDS SUMMARY | 2018-12-11 13:19 | XMS REPORT | Continuity of Care Document ---
Author Author [address] Address Unknown Phone Unavailable Care Team Providers Care Kiln Operator Name Role Phone [employer] Unavailable Unavailable Problems Problem Status Onset Date Classification Date Reported Comments Source I63.9 CEREBRAL INFARCTION, UNSPECIFIED 06/22/2018 Diagnosis 07/11/2018 SN[facility]: [facility] [place] [facility] R41.82 ALTERED MENTAL STATUS, UNSPECIFIED 06/22/2018 Diagnosis 07/11/2018 SNF: [facility] [place] [facility] I69.322 DYSARTHRIA FOLLOWING CEREBRAL INFARCTION 06/22/2018 Diagnosis 07/11/2018 SNF: [facility] [place] [facility] I10 ESSENTIAL HYPERTENSION 06/22/2018 Diagnosis 07/11/2018 SNF: [facility] [place] [facility] E11.9 TYPE 2 DIABETES MELLITUS WITHOUT COMPLICATIONS 06/22/2018 Diagnosis 07/11/2018 SNF: [facility] [facility] M62.81 MUSCLE WEAKNESS 06/22/2018 Diagnosis 07/11/2018 SNF: [facility] [place] [facility] R26.89 OTHER ABNORMALITIES OF GAIT AND MOBILITY 06/22/2018 Diagnosis 07/11/2018 SNF: [facility] [facility] R27.9 UNSPECIFIED LACK OF COORDINATION 06/22/2018 Diagnosis 07/11/2018 SNF: [facility] [facility] R26.81 UNSTEADINESS ON FEET 06/22/2018 Diagnosis 07/11/2018 SNF: [facility] [facility] R48.2 APRAXIA 06/22/2018 Diagnosis 07/11/2018 SNF: [facility] [facility] 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 06/22/2018 Diagnosis 07/11/2018 SNF: [facility] [facility] I48.91 UNSPECIFIED ATRIAL FIBRILLATION 06/22/2018 Diagnosis 07/11/2018 SNF: [facility] [facility] E78.5 HYPERLIPIDEMIA, UNSPECIFIED 06/22/2018 Diagnosis 07/11/2018 SNF: [facility] [facility] 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 06/22/2018 Diagnosis 07/11/2018 [facility]: [facility] [place] [facility] R56.9 UNSPECIFIED CONVULSIONS 06/22/2018 Diagnosis 07/11/2018 [facility]: [facility] [place] [facility] Cardiac pacemaker in situ Active Problem 11/12/[facility] Type 2 diabetes mellitus with other circulatory complication, without long-term current use of insulin Active Problem 11/12/2018 [facility] Coronary artery disease 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 Active Problem 11/12/2018 [facility] Cystitis Active Diagnosis 06/18/2018 [facility] Medications Medication Details Route Status Patient Instructions Ordering Provider Order Date Source spironolactone 1 tab(s) orally Active 25 mg orally once a day LATTHE 11/11/2018 [facility] senna 1 tab(s) orally Active 8.6 mg orally once a day (at bedtime) LATTHE 07/13/2018 [facility] Coumadin Tablet 5 MG Give 1 tablet by mouth one time a day for blood thinner Oral Active 07/10/2018 [facility]: [facility] [place] [facility] Insulin NPH (Human) (Isophane) Suspension 100 UNIT/ML Inject 10 unit subcutaneously one time a day for dm with dinner Subcutaneous Active 07/01/2018 [facility]: [facility] [place] [facility] Coumadin Tablet 4 MG Give 1 tablet by mouth one time a day for blood thinner Oral Active 06/29/2018 [facility]: [facility] [place] [facility] Carvedilol Tablet 3.125 MG Give 1 tablet by mouth every 12 hours for CAD Hold for SBP < 110 or HR < 60 Oral Active 06/26/2018 [facility]: [facility] [place] [facility] Fish Oil Capsule 1000 MG Give 1 capsule by mouth one time a day for supplement Oral Active 06/24/2018 [facility]: [facility] [place] [facility] Lyrica Capsule 25 MG Give 1 capsule by mouth one time a day for neuropathy Oral Active 06/24/2018 SN[facility]: [facility] [place] [facility] Coumadin Tablet 3 MG Give 1 tablet via G-Tube one time a day for blood thinner Oral Active 06/23/2018 [place] [facility] [place] [facility] [place] [facility] Keppra Tablet 750 MG Give 1 tablet by mouth two times a day for seizure Oral Active 06/23/2018 SNF: [facility] [place] [facility] Lyrica Capsule 25 MG Give 1 capsule by mouth one time a day for CVA Oral Inactive 06/23/2018 [facility]: [facility] [place] [facility] FerrouSul Tablet 325 (65 Fe) MG Give 1 tablet by mouth one time a day for Anemia Oral Active 06/23/2018 SN[facility]: [facility] [place] [facility] Fish Oil Capsule 1000 MG Give 1 capsule by mouth one time a day for CVA Oral Inactive 06/23/2018 [place] [facility] [place] [facility] [place] [facility] Co Q-10 Capsule Give 1 capsule by mouth one time a day for Vitamin Oral Active 06/23/2018 [place] [facility] [place] [facility] Triamterene-HCTZ Capsule 37.5-25 MG Give 1 capsule by mouth one time a day for HTN Oral Active 06/23/2018 [place] [facility] [place] [facility] Furosemide Tablet 40 MG Give 1 tablet by mouth one time a day for HTN Oral Active 06/23/2018 [place] [facility] [place] [facility] [place] [facility] Keppra Tablet 750 MG Give 1 tablet by mouth two times a day for CVA Oral Inactive 06/23/2018 [facility]: [facility] HumuLIN N Suspension 100 UNIT/ML Inject 23 unit subcutaneously one time a day for Diabetes Subcutaneous Active 06/23/2018 [place] [facility] [place] [facility] Carvedilol Tablet 3.125 MG Give 1 tablet by mouth every 12 hours for CAD Oral Active 06/23/2018 [place] [facility] [place] [facility] Insulin Lispro Solution Cartridge 100 UNIT/ML Inject as per sliding scale: if 0 - 150=0; 151 - 200=2; 201 - 250=4; 251 - 300=6; 301 - 350=8; 351 - 400=10; 401 - 999=12 GIVE 12 UNIT AND NOTIFY MD subcutaneously before meals and at bedtime for Diabetes Mellitus Subcutaneous Active 06/23/2018 SNF: [facility] [place] [facility] Atorvastatin Calcium Tablet 40 MG Give 1 tablet by mouth at bedtime for Cholesterol Oral Active 06/23/2018 [place] [facility] [place] [facility] [place] [facility] Pantoprazole Sodium Tablet Delayed Release 40 MG Give 1 tablet by mouth every 48 hours for GERD Oral Active 06/23/2018 SNF: [facility] lisinopril 1 tab(s) orally Active 2.5 mg orally once a day LATTHE 06/10/2018 [facility] cephalexin 1 cap(s) orally Active 500 mg orally every 12 hours LATTHE 06/10/2018 [facility] Lotrimin AF Cream 1 torsten applied topically Active 1% applied topically 2 times a day LATTHE 06/10/2018 [facility] lisinopril 1 tab(s) orally Active 5 mg orally once a day LATTHE 06/10/2018 [facility] fluconazole 1 tab(s) orally Active 150 mg orally once LATTHE 06/10/2018 [facility] glipizide 1 tab(s) orally Active 10 mg orally Twice a day LATTHE 01/10/2018 [facility] Colace 1 cap(s) orally Active sodium 100 mg orally Once daily LATTHE 01/05/2018 [facility] Coreg 1 tab(s) orally Active 3.125 mg orally 2 times a day LATTHE 09/17/2017 [facility] simethicone 1 tab(s) chewed Active 80 mg chewed 4 times a day (after meals and at bedtime) LATTHE 09/17/2017 [facility] Warfarin Sodium Take one half orally Active 1 mg orally along with the 6 mg tablet once a day for LATTHE 07/02/2017 [facility] furosemide 1 tab(s) orally Active 20 mg orally once a day LATTHE 06/18/2017 [facility] gabapentin 1 cap(s) orally Active 300 mg orally Once at night LATTHE 06/18/2017 [facility] Coumadin 1 tab(s) orally Active 6 mg orally once a day LATTHE 04/17/2017 [facility] benzonatate 1 cap(s) orally Active 100 mg [facility] [place] [facility]2017 [facility] Warfarin Sodium 1 tab(s) orally Active 4 mg orally once a day LATTHE 02/06/2017 [facility] hydrochlorothiazide-triamterene 1 cap(s) orally Active 25 mg- 37.5 mg orally once a day LATTHE 01/15/2017 [facility] Coumadin 1 tab(s) orally Active 2 mg orally once a day LAT01/15/2017 [facility] Xarelto 1 tab(s) orally Active 10 mg orally once a day LATTHE 11/18/2016 [facility] furosemide 1 tab(s) orally Active 20 mg orally once a day LATTHE 11/18/2016 [facility] Xarelto 1 tab(s) orally Active 10 mg orally once a day LATTHE 11/18/2016 [facility] furosemide 1 tab(s) orally Active 20 mg orally once a day LATTHE 11/18/2016 [facility] lisinopril 1 tab(s) orally Active 5 mg orally once a day LATTHE 10/28/2016 [facility] Humulin N 20 units subcutaneously Active human recombinant 100 units/mL subcutaneously Once daily LATTHE 10/28/2016 [facility] Humulin N 20 units subcutaneously Active human recombinant 100 units/mL subcutaneously Once daily LATTHE 10/28/2016 [facility] lisinopril 1 tab(s) orally Active 5 mg orally once a day LATTHE 10/28/2016 [facility] Levemir 20 units subcutaneously Active 100 units/mL subcutaneously Once daily LATTHE 09/30/2016 [facility] Januvia 1 tab(s) orally Active 100 mg orally once a day LATTHE 09/02/2016 [facility] Ultram 1 tab(s) orally Active 50 mg orally every 6 hours PRN LATTHE 07/15/2016 [facility] Ultram 1 tab(s) orally Active 50 mg orally every 6 hours PRN LATTHE 07/15/2016 [facility] furosemide 1 tab(s) orally Active 40 mg orally once a day LATTHE 06/24/2016 [facility] furosemide 1 tab(s) orally Active 40 mg orally once a day LATTHE 06/24/2016 [facility] Plavix 1 tab(s) orally No Longer Active 75 mg orally once a day LATTHE 06/24/2016 [facility] pantoprazole 1 tab(s) orally Active 40 mg orally once a day LATTHE 05/27/2016 [facility] pantoprazole 1 tab(s) orally Active 40 mg orally once a day [facility] 05/27/2016 [facility] furosemide 1 tab(s) orally No Longer Active 20 mg orally once a day [facility] [place] 05/27/2016 [facility] Eliquis 1 tab(s) orally Active 2.5 mg orally 2 times a day [facility] 04/24/2016 [facility] levetiracetam 1 tab(s) orally Active 500 mg orally 2 times a day [facility] 09/09/2014 [facility] levetiracetam 1 tab(s) orally Active 500 mg orally 2 times a day [facility] 09/09/2014 [facility] levothyroxine 1 tab(s) orally Active 25 mcg (0.025 mg) orally once a day [facility] 05/03/2014 [facility] levothyroxine 1 tab(s) orally Active 25 mcg (0.025 mg) orally once a day [facility] 05/03/2014 [facility] Eliquis 1 tab(s) orally Active 2.5 mg orally 2 times a day [facility] MiraLax 17 g orally Active - orally once a day [facility] ferrous fumarate 1 tab(s) orally Active 325 mg orally once a day [facility] glipizide 1 tab(s) orally Active 10 mg orally Twice a day [facility] atorvastatin 1 tab(s) orally Active 40 mg orally once a day (at bedtime) [facility] Co Q-10 1 cap(s) orally Active 100 mg orally once a day [facility] Lyrica 1 cap(s) orally Active 25 mg orally once a day [facility] Savaysa 1 tab(s) orally Active 30 mg orally once a day [facility] gabapentin 1 cap(s) orally Active 300 mg orally Once daily [facility] Januvia 1 tab(s) orally Active 50 mg orally once a day [facility] furosemide 1 tab(s) orally Active 20 mg orally once a day [facility] Coumadin 1 tab(s) orally Active 5 mg orally once a day [facility] atorvastatin 1 tab(s) orally Active 40 mg orally once a day (at bedtime) [facility] gabapentin 1 cap(s) orally Active 300 mg orally Once daily [facility] Eliquis 1 tab(s) orally Active 2.5 mg orally 2 times a day [facility] ferrous fumarate 1 tab(s) orally Active 325 mg orally once a day [facility] Lyrica 1 cap(s) orally Active 25 mg orally once a day [facility] Co Q-10 1 cap(s) orally Active 100 mg orally once a day [facility] furosemide 1 tab(s) orally Active 40 mg orally once a day [facility] glipizide 1 tab(s) orally Active 10 mg orally Twice a day [facility] MiraLax 17 g orally Active - orally once a day [facility] Coumadin 1 tab(s) orally Active 6 mg orally once a day [facility] Lyrica TAKE 1 CAPSULE BY MOUTH ONCE DAILY NA Active 25MG [facility] Humulin N INJECT 20 UNITS SUBCUTANEOUSLY ONCE DAILY NA Active 100U/ML [facility] levetiracetam 1 tab(s) orally Active 500 mg orally 2 times a day [facility] lisinopril 1 tab(s) orally Active 10 mg orally once a day [facility] Xarelto 1 tab(s) orally Active 15 mg orally once a day (in the evening) [facility] Fish Oil 1 cap(s) orally Active 1200 mg orally Once daily [facility] spironolactone 1 tab(s) orally Active 25 mg orally Once daily [facility] Fish Oil 1 cap(s) orally Active 1200 mg orally Once daily [facility] levetiracetam TAKE 1 TABLET BY MOUTH TWICE DAILY orally Active 750 mg orally 2 times a day [facility] triamterene/hctz 1 tab(s) orally Active 25 mg-37.5 mg orally once a day [facility] levetiracetam 1 tab(s) orally Active 750 mg orally 2 times a day LATTHE [facility] Coumadin 1 tab(s) orally Active 4 mg orally once a day [facility] atorvastatin 1 tab(s) orally Active 40 mg orally once a day [facility] lisinopril 1 tab(s) orally Active 2.5 mg orally once a day [facility] triamterene/hctz TAKE 1 TABLET BY MOUTH ONCE DAILY NA Active 25 mg-37.5 mg [facility] Coumadin 1 tab(s) orally Active 6 mg orally once a day [facility] furosemide 1 tab(s) orally No Longer Active 40 mg orally once a day [facility] Plavix 1 tab(s) orally No Longer Active 75 mg orally once a day [facility] Allergies, Adverse Reactions, Alerts Substance Category Reaction Severity Reaction type Status Date Reported Comments Source Gabapentin 06/22/2018 SNF: [facility] [place] [facility] Metformin 06/22/2018 SNF: [facility] [place] [facility] Penicillins 06/22/2018 SNF: [facility] [place] [facility] penicillin Adverse Reaction hives Adverse Reaction Active 08/26/2018 [facility] Immunizations Immunization Date Given Site Status Last Updated Comments Source INFLUENZA MEDICARE 04/06/2018 completed [facility] INFLUENZA MEDICARE 06/18/2017 completed [facility] INFLUENZA MEDICARE 04/24/2016 completed [facility] Results Order Name Results Value Reference Range Date Interpretation Comments Source Blood sugar Blood sugar 172 07/11/2018 SN[facility]: [facility] [place] [facility] Blood sugar Blood sugar 172 07/11/2018 [facility]: [facility] [place] [facility] Blood sugar Blood sugar 269 07/11/2018 [facility]: [facility] [place] [facility] Blood sugar Blood sugar 170 07/10/2018 [facility]: [facility] [place] [facility] Blood sugar Blood sugar 204 07/10/2018 [facility]: [facility] [place] [facility] Blood sugar Blood sugar 183 07/10/2018 [facility]: [facility] [place] [facility] Blood sugar Blood sugar 183 07/10/2018 [facility]: [facility] [place] [facility] Blood sugar Blood sugar 168 07/10/2018 [facility]: [facility] [place] [facility] Blood sugar Blood sugar 160 07/09/2018 [facility]: [facility] [place] [facility] Blood sugar Blood sugar 167 07/09/2018 [facility]: [facility] [place] [facility] Blood sugar Blood sugar 137 07/09/2018 [facility]: [facility] [place] [facility] Blood sugar Blood sugar 137 07/09/2018 [facility]: [facility] [place] [facility] Blood sugar Blood sugar 183 07/09/2018 [facility]: [facility] [place] [facility] Blood sugar Blood sugar 290 07/08/2018 [facility]: [facility] [place] [facility] Blood sugar Blood sugar 175 07/08/2018 [facility]: [facility] [place] [facility] Blood sugar Blood sugar 139 07/08/2018 [facility]: [facility] [place] [facility] Blood sugar Blood sugar 215 07/08/2018 [facility]: [facility] [place] [facility] Blood sugar Blood sugar 192 07/07/2018 [facility]: [facility] [place] [facility] Blood sugar Blood sugar 148 07/07/2018 [facility]: [facility] [place] [facility] Blood sugar Blood sugar 119 07/07/2018 [facility]: [facility] [place] [facility] Blood sugar Blood sugar 119 07/07/2018 [facility]: [facility] [place] [facility] Blood sugar Blood sugar 251 07/07/2018 [facility]: [facility] [place] [facility] Blood sugar Blood sugar 212 07/06/2018 [facility]: [facility] [place] [facility] Blood sugar Blood sugar 224 07/06/2018 [facility]: [facility] [place] [facility] Blood sugar Blood sugar 129 07/06/2018 [facility]: [facility] [place] [facility] Blood sugar Blood sugar 129 07/06/2018 [facility]: [facility] [place] [facility] Blood sugar Blood sugar 205 07/06/2018 [facility]: [facility] [place] [facility] Blood sugar Blood sugar 215 07/05/2018 [facility]: [facility] [place] [facility] Blood sugar Blood sugar 198 07/05/2018 [facility]: [facility] [place] [facility] Blood sugar Blood sugar 163 07/05/2018 [facility]: [facility] [place] [facility] Blood sugar Blood sugar 163 07/05/2018 [facility]: [facility] [place] [facility] Blood sugar Blood sugar 218 07/05/2018 [facility]: [facility] [place] [facility] Blood sugar Blood sugar 318 07/04/2018 [facility]: [facility] [place] [facility] Blood sugar Blood sugar 192 07/04/2018 [facility]: [facility] [place] [facility] Blood sugar Blood sugar 175 07/04/2018 [facility]: [facility] [place] [facility] Blood sugar Blood sugar 304 07/04/2018 [facility]: [facility] [place] [facility] Blood sugar Blood sugar 134 07/03/2018 [facility]: [facility] [place] [facility] Blood sugar Blood sugar 296 07/03/2018 [facility]: [facility] [place] [facility] Blood sugar Blood sugar 177 07/03/2018 [facility]: [facility] [place] [facility] Blood sugar Blood sugar 177 07/03/2018 [facility]: [facility] [place] [facility] Blood sugar Blood sugar 174 07/03/2018 [facility]: [facility] [place] [facility] Blood sugar Blood sugar 270 07/02/2018 [facility]: [facility] [place] [facility] Blood sugar Blood sugar 150 07/02/2018 [facility]: [facility] [place] [facility] Blood sugar Blood sugar 119 07/02/2018 [facility]: [facility] [place] [facility] Blood sugar Blood sugar 119 07/02/2018 [facility]: [facility] [place] [facility] Blood sugar Blood sugar 253 07/02/2018 [facility]: [facility] [place] [facility] Blood sugar Blood sugar 314 07/01/2018 [facility]: [facility] [place] [facility] Blood sugar Blood sugar 216 07/01/2018 [facility]: [facility] [place] [facility] Blood sugar Blood sugar 226 07/01/2018 [facility]: [facility] [place] [facility] Blood sugar Blood sugar 226 07/01/2018 [facility]: [facility] [place] [facility] Blood sugar Blood sugar 202 07/01/2018 [facility]: [facility] [place] [facility] Blood sugar Blood sugar 325 06/30/2018 [facility]: [facility] [place] [facility] Blood sugar Blood sugar 289 06/30/2018 [facility]: [facility] [place] [facility] Blood sugar Blood sugar 219 06/30/2018 [facility]: [facility] [place] [facility] Blood sugar Blood sugar 219 06/30/2018 [facility]: [facility] [place] [facility] Blood sugar Blood sugar 217 06/30/2018 [facility]: [facility] [place] [facility] Blood sugar Blood sugar 240 06/29/2018 [facility]: [facility] [place] [facility] Blood sugar Blood sugar 174 06/29/2018 [facility]: [facility] [place] [facility] Blood sugar Blood sugar 218 06/29/2018 [facility]: [facility] [place] [facility] Blood sugar Blood sugar 218 06/29/2018 [facility]: [facility] [place] [facility] Blood sugar Blood sugar 249 06/29/2018 [facility]: [facility] [place] [facility] Blood sugar Blood sugar 224 06/28/2018 [facility]: [facility] [place] [facility] Blood sugar Blood sugar 275 06/28/2018 [facility]: [facility] [place] [facility] Blood sugar Blood sugar 190 06/28/2018 [facility]: [facility] [place] [facility] Blood sugar Blood sugar 205 06/28/2018 [facility]: [facility] [place] [facility] Blood sugar Blood sugar 212 06/27/2018 [facility]: [facility] [place] [facility] Blood sugar Blood sugar 238 06/27/2018 [facility]: [facility] [place] [facility] Blood sugar Blood sugar 165 06/27/2018 [facility]: [facility] [place] [facility] Blood sugar Blood sugar 165 06/27/2018 [facility]: [facility] [place] [facility] Blood sugar Blood sugar 262 06/27/2018 [facility]: [facility] [place] [facility] Blood sugar Blood sugar 232 06/26/2018 [facility]: [facility] [place] [facility] Blood sugar Blood sugar 231 06/26/2018 [facility]: [facility] [place] [facility] Blood sugar Blood sugar 192 06/26/2018 [facility]: [facility] [place] [facility] Blood sugar Blood sugar 192 06/26/2018 [facility]: [facility] [place] [facility] Blood sugar Blood sugar 243 06/25/2018 [facility]: [facility] [place] [facility] Blood sugar Blood sugar 172 06/25/2018 [facility]: [facility] [place] [facility] Blood sugar Blood sugar 188 06/25/2018 [facility]: [facility] [place] [facility] Blood sugar Blood sugar 188 06/25/2018 [facility]: [facility] [place] [facility] Blood sugar Blood sugar 240 06/25/2018 [facility]: [facility] [place] [facility] Blood sugar Blood sugar 192 06/25/2018 [facility]: [facility] [place] [facility] Blood sugar Blood sugar 285 06/24/2018 [facility]: [facility] [place] [facility] Blood sugar Blood sugar 182 06/24/2018 [facility]: [facility] [place] Station Blood sugar Blood sugar 182 06/24/2018 SN[facility]: [facility] Blood sugar Blood sugar 238 06/24/2018 SN[facility]: [facility] Blood sugar Blood sugar 313 06/23/2018 SN[facility]: [facility] Blood sugar Blood sugar 300 06/23/2018 SN[facility]: [facility] Blood sugar Blood sugar 198 06/23/2018 SN[facility]: [facility] Blood sugar Blood sugar 212 06/23/2018 SN[facility]: [facility] Pathology Reports No Data Provided for [...] Hg) 129 07/11/2018 SN[facility]: [facility] Diastolic (mm Hg) 60 07/11/2018 SN[facility]: [facility] Heart Rate 87 {beats}/min 07/11/2018 SN[facility]: [facility] Systolic (mm Hg) 122 07/11/2018 SN[facility]: [facility] Diastolic (mm Hg) 77 07/11/2018 SN[facility]: [facility] Heart Rate 90 {beats}/min 07/11/2018 SNF: [facility] Systolic (mm Hg) 137 07/10/2018 SNF: [facility] Diastolic (mm Hg) 67 07/10/2018 SN[facility]: [facility] Heart Rate 90 {beats}/min 07/10/2018 SN[facility]: [facility] Systolic (mm Hg) 131 07/10/2018 SN[facility]: [facility] Diastolic (mm Hg) 75 07/10/2018 SN[facility]: [facility] Heart Rate 75 {beats}/min 07/10/2018 SNF: [facility] Systolic (mm Hg) 142 07/09/2018 SNF: [facility] Diastolic (mm Hg) 83 07/09/2018 SN[facility]: [facility] Heart Rate 88 {beats}/min 07/09/2018 SN[facility]: [facility] Systolic (mm Hg) 115 07/09/2018 SN[facility]: [facility] Diastolic (mm Hg) 60 07/09/2018 SN[facility]: [facility] Heart Rate 75 {beats}/min 07/09/2018 SN[facility]: [facility] Systolic (mm Hg) 126 07/08/2018 SN[facility]: [facility] Diastolic (mm Hg) 67 07/08/2018 SN[facility]: [facility] Heart Rate 80 {beats}/min 07/08/2018 SN[facility]: [facility] Systolic (mm Hg) 105 07/07/2018 SN[facility]: [facility] Diastolic (mm Hg) 63 07/07/2018 SN[facility]: [facility] Heart Rate 78 {beats}/min 07/07/2018 SN[facility]: [facility] Systolic (mm Hg) 126 07/06/2018 SN[facility]: [facility] Diastolic (mm Hg) 74 07/06/2018 SN[facility]: [facility] Heart Rate 81 {beats}/min 07/06/2018 SN[facility]: [facility] Systolic (mm Hg) 129 07/06/2018 SN[facility]: [facility] Diastolic (mm Hg) 68 07/06/2018 SN[facility]: [facility] Heart Rate 84 {beats}/min 07/06/2018 SN[facility]: [facility] Systolic (mm Hg) 122 07/05/2018 SN[facility]: [facility] Diastolic (mm Hg) 65 07/05/2018 SN[facility]: [facility] Heart Rate 70 {beats}/min 07/05/2018 SN[facility]: [facility] Systolic (mm Hg) 129 07/05/2018 SN[facility]: [facility] Diastolic (mm Hg) 62 07/05/2018 SN[facility]: [facility] Heart Rate 78 {beats}/min 07/05/2018 SN[facility]: [facility] Systolic (mm Hg) 118 07/04/2018 SN[facility]: [facility] Diastolic (mm Hg) 89 07/04/2018 SN[facility]: [facility] Heart Rate 71 {beats}/min 07/04/2018 SN[facility]: [facility] Systolic (mm Hg) 132 07/03/2018 SN[facility]: [facility] Diastolic (mm Hg) 73 07/03/2018 SN[facility]: [facility] Heart Rate 84 {beats}/min 07/03/2018 SN[facility]: [facility] Systolic (mm Hg) 126 07/02/2018 SN[facility]: [facility] Diastolic (mm Hg) 68 07/02/2018 SN[facility]: [facility] Heart Rate 71 {beats}/min 07/02/2018 SN[facility]: [facility] Systolic (mm Hg) 122 07/02/2018 SN[facility]: [facility] Diastolic (mm Hg) 60 07/02/2018 SN[facility]: [facility] Heart Rate 73 {beats}/min 07/02/2018 SN[facility]: [facility] Systolic (mm Hg) 124 07/01/2018 SN[facility]: [facility] Diastolic (mm Hg) 74 07/01/2018 SN[facility]: [facility] Heart Rate 81 {beats}/min 07/01/2018 SN[facility]: [facility] Systolic (mm Hg) 118 07/01/2018 SN[facility]: [facility] Diastolic (mm Hg) 82 07/01/2018 SN[facility]: [facility] Heart Rate 83 {beats}/min 07/01/2018 SN[facility]: [facility] Systolic (mm Hg) 115 06/30/2018 SN[facility]: [facility] Diastolic (mm Hg) 81 06/30/2018 SN[facility]: [facility] Heart Rate 81 {beats}/min 06/30/2018 SN[facility]: [facility] Systolic (mm Hg) 117 06/29/2018 SN[facility]: [facility] Diastolic (mm Hg) 60 06/29/2018 SN[facility]: [facility] Heart Rate 62 {beats}/min 06/29/2018 SN[facility]: [facility] Systolic (mm Hg) 118 06/29/2018 SN[facility]: [facility] Diastolic (mm Hg) 61 06/29/2018 SN[facility]: [facility] Heart Rate 69 {beats}/min 06/29/2018 SN[facility]: [facility] Systolic (mm Hg) 128 06/28/2018 SN[facility]: [facility] Diastolic (mm Hg) 66 06/28/2018 SN[facility]: [facility] Heart Rate 76 {beats}/min 06/28/2018 SN[facility]: [facility] Systolic (mm Hg) 139 06/28/2018 SN[facility]: [facility] Diastolic (mm Hg) 77 06/28/2018 SN[facility]: [facility] Heart Rate 81 {beats}/min 06/28/2018 SN[facility]: [facility] Systolic (mm Hg) 128 06/27/2018 SN[facility]: [facility] Diastolic (mm Hg) 71 06/27/2018 SN[facility]: [facility] Heart Rate 84 {beats}/min 06/27/2018 SN[facility]: [facility] Systolic (mm Hg) 117 06/26/2018 SN[facility]: [facility] Diastolic (mm Hg) 65 06/26/2018 SN[facility]: [facility] Heart Rate 80 {beats}/min 06/26/2018 SN[facility]: [facility] Systolic (mm Hg) 116 06/26/2018 SN[facility]: [facility] Diastolic (mm Hg) 63 06/26/2018 SN[facility]: [facility] Heart Rate 75 {beats}/min 06/26/2018 SN[facility]: [facility] Systolic (mm Hg) 116 06/25/2018 SN[facility]: [facility] Diastolic (mm Hg) 88 06/25/2018 SN[facility]: [facility] Heart Rate 86 {beats}/min 06/25/2018 SN[facility]: [facility] Systolic (mm Hg) 124 06/25/2018 SN[facility]: [facility] Diastolic (mm Hg) 64 06/25/2018 SN[facility]: [facility] Heart Rate 61 {beats}/min 06/25/2018 SN[facility]: [facility] Systolic (mm Hg) 117 06/24/2018 SN[facility]: [facility] Diastolic (mm Hg) 62 06/24/2018 SN[facility]: [facility] Heart Rate 82 {beats}/min 06/24/2018 SN[facility]: [facility] Systolic (mm Hg) 156 06/24/2018 SN[facility]: [facility] Diastolic (mm Hg) 71 06/24/2018 SN[facility]: [facility] Heart Rate 77 {beats}/min 06/24/2018 SN[facility]: [facility] Weight 189.8 06/23/2018 SN[facility]: [facility] Height 63 06/23/2018 SN[facility]: [facility] Weight 198 06/10/2018 [facility] [...] Provider ADM Date DC Date Status Source [facility] [place] [id number] 04/24/2016 04/24/2016 [facility] [place] [id number] 04/24/2016 04/24/2016 [facility] [place] [id number] 04/24/2016 04/24/2016 [facility] [place] [id number] 04/24/2016 04/24/2016 [facility] [place] [id number] 04/24/2016 04/24/2016 [facility] [id number] 04/24/2016 04/24/2016 [facility] Unknown [id number] 04/29/2016 04/29/2016 [facility] [id number] 04/29/2016 04/29/2016 [facility] Unknown [id number] 04/29/2016 04/29/2016 [facility] Unknown [id number] 04/29/2016 04/29/2016 [facility] Unknown [id number] 04/29/2016 04/29/2016 [facility] Unknown [id number] 05/27/2016 05/27/2016 [facility] Unknown [id number] 05/27/2016 05/27/2016 [facility] Unknown [id number] 05/27/2016 05/27/2016 [facility] [id number] 05/27/2016 05/27/2016 [facility] Unknown [id number] 06/24/2016 06/24/2016 [facility] [id number] 06/24/2016 06/24/2016 [facility] Unknown [id number] 06/24/2016 06/24/2016 [facility] Message [id number] 07/15/2016 07/15/2016 [facility] Message [id number] 07/15/2016 07/15/2016 [facility] Unknown [id number] 08/12/2016 08/12/2016 [facility] Procedures No Data Provided for This Section Assessment and Plan No Data Provided for This Section Plan of Care No Data Provided for This Section Social History Social History Date Source Smoking StatusStart DateEnd Date Unknown if ever smoked 07/11/2018 13:44:46 07/10/2018 SNF: [facility] Social History ElementQualifiersDate Reported Tobacco Use: . Are you a: Never Smoker August 12, 2016 caffeine yes. caffeine Yes 2 cups per day August 12, 2016 alcohol no. alcohol No August 12, 2016 Children: . sons:1 daughters:1 August 12, 2016 Marital Status: . August 12, 2016 Exercise: no. Do you exercise? No August 12, 2016 08/12/2016 [facility] Family History Value Date Source QualifierDescriptionCommentDate Reported [...] Directives Advance Directives Cardiopulmonary Resuscitation 07/11/2018 SN[facility]: [facility] Functional Status No Data Provided for This Section
[2018-12-11] MEDS ORDERED: MECLIZINE HCL 12.5 MG TAB PO ONE (13:30)
--- NOTE | 2018-12-11 14:15 | Diagnostic Imaging Report ---
EXAMINATION: CHEST SINGLE (NOT PORTABLE) INDICATION: Shortness of breath COMPARISON: Chest radiographs of 12/04/2018 and 10/11/2018 FINDINGS: TUBES and LINES: Single lead pacer projects over the right ventricle. 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 LUNGS: The lung volumes are low. No focal consolidation or pulmonary edema. PLEURA: No pleural effusion or pneumothorax. HEART AND MEDIASTINUM: The cardiomediastinal silhouette is stably enlarged. BONES AND SOFT TISSUES: No acute fracture or dislocation. UPPER ABDOMEN: No free air under the diaphragm. IMPRESSION: Low lung volumes. No focal pneumonia or pulmonary edema. Stable cardiomegaly. Signed by: Yahir Alford MD on 12/11/2018 2:12 PM
--- NOTE | 2018-12-11 14:22 | Diagnostic Imaging Report ---
Examination: CT head without contrast Clinical Indication: Slurred speech. Dizziness. New onset vertigo and aphasia. Technique: Transaxial noncontrast images from the skull base through the vertex were obtained. Sagittal and coronal reformatted images were done. Dose modulation, iterative reconstruction, and/or weight based adjustment of the mA/kV was utilized to reduce the radiation dose to as low as reasonably achievable. Comparison: None. Findings: Scalp: No abnormalities. Bones: Intact. No fractures. No blastic or lytic lesions. Brain sulci: Appropriate for patient's age. Ventricles: Normal in size and configuration. No hydrocephalus. . Extra-axial space: No abnormalities. Parenchyma: There are patchy areas of low-attenuation within subcortical and periventricular white matter, nonspecific, but could represent microvascular ischemic disease. A chronic infarct is demonstrated in the left middle cerebral artery territory. No masses, hemorrhage, or acute cortical based vascular insults. Suprasellar region: No abnormalities. Craniocervical junction: The foramen magnum is patent. No Chiari one malformation. Incidental findings: Atherosclerotic calcification of the cavernous and supraclinoid internal carotid arteries. Impression: 1. No acute intracranial finding. 2. Mild chronic microvascular ischemic change. 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 Signed by: Dr. Paula Brandon M.D. on 12/11/2018 2:19 PM
[2018-12-11 14:23] LABS: BASOPHILS # (AUTO) 0.1 (0.0-0.1); BASOPHILS % 0.8 % (0.0-1.0); EOSINOPHILS # (AUTO) 0.2 (0.0-0.4); EOSINOPHILS % 2.3 % (0.0-6.0); HEMATOCRIT 40.2 % (34.2-44.1); HEMOGLOBIN 13.6 g/dL (12.0-16.0); LYMPHOCYTES # (AUTO) 2.9 (1.0-3.2); LYMPHOCYTES % 30.8 % (18.0-39.1); MEAN CORPUSCULAR HEMOGLOBIN 29.8 pg (28-32); MEAN CORPUSCULAR HGB CONC 33.8 g/dL (31-35); MEAN CORPUSCULAR VOLUME 88.2 fL (81-99); MONOCYTES % 10.5 % (4.4-11.3); NEUTROPHILS # (AUTO) 5.2 (2.1-6.9); NEUTROPHILS % 54.3 % (38.7-80.0); PLATELET COUNT 273 x10e3/uL (140-360); RED BLOOD COUNT 4.56 x10e6/uL (3.6-5.1); RED CELL DISTRIBUTION WIDTH 14.1 % (11.7-14.4)
[2018-12-11 14:31] LABS: INR 1.97; PROTHROMBIN TIME 23.1 seconds (11.9-14.5)
[2018-12-11 14:32] LABS: PARTIAL THROMBOPLASTIN TIME 34.5 seconds (23.8-35.5)
[2018-12-11 14:52] LABS: BILIRUBIN,URINE NEGATIVE (NEGATIVE); CLARITY,URINE CLEAR (CLEAR); COLOR,URINE YELLOW (YELLOW); KETONES,URINE NEGATIVE (NEGATIVE); LEUKOCYTE ESTERASE ,URINE NEGATIVE (NEGATIVE); NITRITE,URINE NEGATIVE (NEGATIVE); PROTEIN,URINE DIPSTICK NEGATIVE (NEGATIVE); URINE UROBILINOGEN 0.2 mg/dL (0.2 - 1)
[2018-12-11 15:06] LABS: BACTERIA,URINE FEW /HPF
[2018-12-11 15:54] LABS: ALBUMIN 3.7 g/dL (3.5-5.0); ALBUMIN/GLOBULIN RATIO 1.1 (0.8-2.0); ANION GAP 16.1 mmol/L (8-16); CALCIUM 9.3 mg/dL (8.4-10.2); CREATININE, SERUM 1.15 mg/dL (0.57-1.11); POTASSIUM 4.1 mmol/L (3.5-5.1)
[2018-12-11 16:14] LABS: CREATINE KINASE MB 1.9 ng/mL (0-5.0); THYROID STIMULATING HORMONE 1.982 uIU/mL (0.350-4.940)
[2018-12-11] MEDS ORDERED: ONDANSETRON HCL INJ 2MG/ML 2ML 2 MG/ML VIAL IV PRN (19:30)
--- OUTSIDE RECORDS SUMMARY | 2018-12-11 19:57 | XMS REPORT | Continuity of Care Document ---
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 Name Role Phone [employer] Unavailable Unavailable Problems Problem Status Onset Date Classification Date Reported Comments Source I63.9 CEREBRAL INFARCTION, UNSPECIFIED 06/22/2018 Diagnosis 07/11/2018 [facility]: [facility] [place] [facility] [place] R41.82 ALTERED MENTAL STATUS, UNSPECIFIED 06/22/2018 Diagnosis 07/11/2018 SN[facility]: [facility] [place] [facility] [place] [facility] I69.322 DYSARTHRIA FOLLOWING CEREBRAL INFARCTION 06/22/2018 Diagnosis 07/11/2018 SN[facility]: [facility] [place] [facility] [place] [facility] I10 ESSENTIAL HYPERTENSION 06/22/2018 Diagnosis 07/11/2018 SN[facility]: [facility] [place] [facility] [place] [facility] E11.9 TYPE 2 DIABETES MELLITUS WITHOUT COMPLICATIONS 06/22/2018 Diagnosis 07/11/2018 SN[facility]: [facility] [place] [facility] [place] [facility] M62.81 MUSCLE WEAKNESS 06/22/2018 Diagnosis 07/11/2018 SN[facility]: [facility] [place] [facility] [place] [facility] R26.89 OTHER ABNORMALITIES OF GAIT AND MOBILITY 06/22/2018 Diagnosis 07/11/2018 [facility]: [facility] [place] [facility] [place] [facility] R27.9 UNSPECIFIED LACK OF COORDINATION 06/22/2018 Diagnosis 07/11/2018 [facility]: [facility] [place] [facility] [place] [facility] R26.81 UNSTEADINESS ON FEET 06/22/2018 Diagnosis 07/11/2018 [facility]: [facility] [place] [facility] [place] [facility] R48.2 APRAXIA 06/22/2018 Diagnosis 07/11/2018 [facility]: [facility] [place] [facility] [place] [facility] 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 06/22/2018 Diagnosis 07/11/2018 SN[facility]: [facility] [place] [facility] [place] [facility] I48.91 UNSPECIFIED ATRIAL FIBRILLATION 06/22/2018 Diagnosis 07/11/2018 SN[facility]: [facility] [place] [facility] [place] [facility] E78.5 HYPERLIPIDEMIA, UNSPECIFIED 06/22/2018 Diagnosis 07/11/2018 SN[facility]: [facility] [place] [facility] [place] I25.10 ATHEROSCLEROTIC HEART DISEASE OF [place] CORONARY ARTERY WITHOUT ANGINA PECTORIS 06/22/2018 Diagnosis 07/11/2018 [facility]: [facility] [place] R56.9 UNSPECIFIED CONVULSIONS 06/22/2018 Diagnosis 07/11/2018 [facility]: [facility] [place] Cardiac pacemaker in situ Active Problem 11/12/[facility] Type 2 diabetes mellitus with other circulatory complication, without long-term current use of insulin Active Problem 11/12/2018 [facility] Coronary artery disease involving [place] coronary artery of [place] heart without angina pectoris Active Problem 11/12/2018 [...] mg orally once a day LATTHE 11/11/2018 [facility] senna 1 tab(s) orally Active 8.6 mg orally once a day (at bedtime) LATTHE 07/13/2018 [facility] Coumadin Tablet 5 MG Give 1 tablet by mouth one time a day for blood thinner Oral Active 07/10/2018 [facility]: [facility] [place] [facility] Insulin NPH (Human) (Isophane) Suspension 100 UNIT/ML Inject 10 unit subcutaneously one time a day for dm with dinner Subcutaneous Active 07/01/2018 [facility]: [facility] [place] [facility] Coumadin Tablet 4 MG Give 1 tablet by mouth one time a day for blood thinner Oral Active 06/29/2018 [facility]: [facility] [place] [facility] [place] [facility] Carvedilol Tablet 3.125 MG Give 1 tablet by mouth every 12 hours for CAD Hold for SBP < 110 or HR < 60 Oral Active 06/26/2018 [facility]: [facility] [place] [facility] [place] [facility] Fish Oil Capsule 1000 MG Give 1 capsule by mouth one time a day for supplement Oral Active 06/24/2018 [facility]: [facility] [place] [facility] Lyrica Capsule 25 MG Give 1 capsule by mouth one time a day for neuropathy Oral Active 06/24/2018 [facility]: [facility] [place] [facility] [place] Coumadin Tablet 3 MG Give 1 tablet via G-Tube one time a day for blood thinner Oral Active 06/23/2018 SNF: [facility] [place] [facility] [place] [facility] Keppra Tablet 750 MG Give 1 tablet by mouth two times a day for seizure Oral Active 06/23/2018 [facility]: [facility] [place] [facility] [place] Lyrica Capsule 25 MG Give 1 capsule by mouth one time a day for CVA Oral Inactive 06/23/2018 [facility]: [facility] [place] [facility] [place] [facility] FerrouSul Tablet 325 (65 Fe) MG Give 1 tablet by mouth one time a day for Anemia Oral Active 06/23/2018 [facility]: [facility] [place] [facility] [place] Fish Oil Capsule 1000 MG Give 1 capsule by mouth one time a day for CVA Oral Inactive 06/23/2018 SNF: [facility] [place] [facility] [place] [facility] Co Q-10 Capsule Give 1 capsule by mouth one time a day for Vitamin Oral Active 06/23/2018 SNF: [facility] [place] [facility] Triamterene-HCTZ Capsule 37.5-25 MG Give 1 capsule by mouth one time a day for HTN Oral Active 06/23/2018 SNF: [facility] [place] [facility] Furosemide Tablet 40 MG Give 1 tablet by mouth one time a day for HTN Oral Active 06/23/2018 SNF: [facility] [place] [facility] [place] [facility] Keppra Tablet 750 MG Give 1 tablet by mouth two times a day for CVA Oral Inactive 06/23/2018 [facility]: [facility] [place] [facility] HumuLIN N Suspension 100 UNIT/ML Inject 23 unit subcutaneously one time a day for Diabetes Subcutaneous Active 06/23/2018 SNF: [facility] [place] [facility] Carvedilol Tablet 3.125 MG Give 1 tablet by mouth every 12 hours for CAD Oral Active 06/23/2018 SNF: [facility] [place] [facility] Insulin Lispro Solution Cartridge 100 UNIT/ML Inject as per sliding scale: if 0 - 150=0; 151 - 200=2; 201 - 250=4; 251 - 300=6; 301 - 350=8; 351 - 400=10; 401 - 999=12 GIVE 12 UNIT AND NOTIFY MD subcutaneously before meals and at bedtime for Diabetes Mellitus Subcutaneous Active 06/23/2018 SNF: [facility] [place] [facility] [place] Atorvastatin Calcium Tablet 40 MG Give 1 tablet by mouth at bedtime for Cholesterol Oral Active 06/23/2018 SNF: [facility] [place] [facility] Pantoprazole Sodium Tablet Delayed Release 40 MG Give 1 tablet by mouth every 48 hours for GERD Oral Active 06/23/2018 SNF: [facility] lisinopril 1 tab(s) orally Active 2.5 mg orally once a day LATTHE 06/10/2018 [facility] cephalexin 1 cap(s) orally Active 500 mg orally every 12 hours LATTHE 06/10/2018 [facility] Lotrimin AF Cream 1 torsten applied topically Active 1% applied topically 2 times a day LATTHE 06/10/2018 [facility] lisinopril 1 tab(s) orally Active 5 mg orally once a day LATTHE 06/10/2018 [facility] fluconazole 1 tab(s) orally Active 150 mg orally once LATTHE 06/10/2018 [facility] glipizide 1 tab(s) orally Active 10 mg orally Twice a day LATTHE 01/10/2018 [facility] Colace 1 cap(s) orally Active sodium 100 mg orally Once daily LATTHE 01/05/2018 [facility] Coreg 1 tab(s) orally Active 3.125 mg orally 2 times a day LATTHE 09/17/2017 [facility] simethicone 1 tab(s) chewed Active 80 mg chewed 4 times a day (after meals and at bedtime) LATTHE 09/17/2017 [facility] Warfarin Sodium Take one half orally Active 1 mg orally along with the 6 mg tablet once a day for LATTHE 07/02/2017 [facility] furosemide 1 tab(s) orally Active 20 mg orally once a day LATTHE 06/18/2017 [facility] gabapentin 1 cap(s) orally Active 300 mg orally Once at night LATTHE 06/18/2017 [facility] Coumadin 1 tab(s) orally Active 6 mg orally once a day LATTHE 04/17/2017 [facility] benzonatate 1 cap(s) orally Active 100 mg [facility] 3 [facility] 03/12/2017 [facility] Warfarin Sodium 1 tab(s) orally Active 4 mg orally once a day LATTHE 02/06/2017 [facility] hydrochlorothiazide-triamterene 1 cap(s) orally Active 25 mg- 37.5 mg orally once a day LATTHE 01/15/2017 [facility] Coumadin 1 tab(s) orally Active 2 mg orally once a day LAT01/15/2017 [facility] Xarelto 1 tab(s) orally Active 10 mg orally once a day LATTHE 11/18/2016 [facility] furosemide 1 tab(s) orally Active 20 mg orally once a day LATTHE 11/18/2016 [facility] Xarelto 1 tab(s) orally Active 10 mg orally once a day LATTHE 11/18/2016 [facility] furosemide 1 tab(s) orally Active 20 mg orally once a day LATTHE 11/18/2016 [facility] lisinopril 1 tab(s) orally Active 5 mg orally once a day LATTHE 10/28/2016 [facility] Humulin N 20 units subcutaneously Active human recombinant 100 units/mL subcutaneously Once daily LATTHE 10/28/2016 [facility] Humulin N 20 units subcutaneously Active human recombinant 100 units/mL subcutaneously Once daily LATTHE 10/28/2016 [facility] lisinopril 1 tab(s) orally Active 5 mg orally once a day LATTHE 10/28/2016 [facility] Levemir 20 units subcutaneously Active 100 units/mL subcutaneously Once daily LATTHE 09/30/2016 [facility] Januvia 1 tab(s) orally Active 100 mg orally once a day LATTHE 09/02/2016 [facility] Ultram 1 tab(s) orally Active 50 mg orally every 6 hours PRN LATTHE 07/15/2016 [facility] Ultram 1 tab(s) orally Active 50 mg orally every 6 hours PRN LATTHE 07/15/2016 [facility] furosemide 1 tab(s) orally Active 40 mg orally once a day LATTHE 06/24/2016 [facility] furosemide 1 tab(s) orally Active 40 mg orally once a day LATTHE 06/24/2016 [facility] Plavix 1 tab(s) orally No Longer Active 75 mg orally once a day LATTHE 06/24/2016 [facility] pantoprazole 1 tab(s) orally Active 40 mg orally once a day LATTHE 05/27/2016 [facility] pantoprazole 1 tab(s) orally Active 40 mg orally once a day [facility] 05/27/2016 [facility] furosemide 1 tab(s) orally No Longer Active 20 mg [facility] a [facility] 05/27/2016 [facility] Eliquis 1 tab(s) orally Active 2.5 mg orally [address] [facility] 04/24/2016 [facility] levetiracetam 1 tab(s) orally Active 500 mg orally [address] [facility] 09/09/2014 [facility] levetiracetam 1 tab(s) orally Active 500 mg orally [address] [facility] 09/09/2014 [facility] levothyroxine 1 tab(s) orally Active 25 mcg (0.025 mg) orally once a day [facility] 05/03/2014 [facility] levothyroxine 1 tab(s) orally Active 25 mcg (0.025 mg) orally once a day [facility] 05/03/2014 [facility] Eliquis 1 tab(s) orally Active 2.5 mg orally 2 times a day [facility] MiraLax 17 g orally Active - orally once a day [facility] ferrous fumarate 1 tab(s) orally Active 325 mg orally once a day [facility] glipizide 1 tab(s) orally Active 10 mg orally Twice a day [facility] atorvastatin 1 tab(s) orally Active 40 mg orally once a day (at bedtime) [facility] Co Q-10 1 cap(s) orally Active 100 mg orally once a day [facility] Lyrica 1 cap(s) orally Active 25 mg orally once a day [facility] Savaysa 1 tab(s) orally Active 30 mg orally once a day [facility] gabapentin 1 cap(s) orally Active 300 mg orally Once daily [facility] Januvia 1 tab(s) orally Active 50 mg orally once a day [facility] furosemide 1 tab(s) orally Active 20 mg orally once a day [facility] Coumadin 1 tab(s) orally Active 5 mg orally once a day [facility] atorvastatin 1 tab(s) orally Active 40 mg orally once a day (at bedtime) [facility] gabapentin 1 cap(s) orally Active 300 mg orally Once daily [facility] Eliquis 1 tab(s) orally Active 2.5 mg orally 2 times a day [facility] ferrous fumarate 1 tab(s) orally Active 325 mg orally once a day [facility] Lyrica 1 cap(s) orally Active 25 mg orally once a day [facility] Co Q-10 1 cap(s) orally Active 100 mg orally once a day [facility] furosemide 1 tab(s) orally Active 40 mg orally once a day [facility] glipizide 1 tab(s) orally Active 10 mg orally Twice a day [facility] MiraLax 17 g orally Active - orally once a day [facility] Coumadin 1 tab(s) orally Active 6 mg orally once a day [facility] Lyrica TAKE 1 CAPSULE BY MOUTH ONCE DAILY NA Active 25MG [facility] Humulin N INJECT 20 UNITS SUBCUTANEOUSLY ONCE DAILY NA Active 100U/ML [facility] levetiracetam 1 tab(s) orally Active 500 mg orally 2 times a day [facility] lisinopril 1 tab(s) orally Active 10 mg orally once a day [facility] Xarelto 1 tab(s) orally Active 15 mg orally once a day (in the evening) [facility] Fish Oil 1 cap(s) orally Active 1200 mg orally Once daily [facility] spironolactone 1 tab(s) orally Active 25 mg orally Once daily [facility] Fish Oil 1 cap(s) orally Active 1200 mg orally Once daily [facility] levetiracetam TAKE 1 TABLET BY MOUTH TWICE DAILY orally Active 750 mg orally 2 times a day [facility] triamterene/hctz 1 tab(s) orally Active 25 mg-37.5 mg orally once a day [facility] levetiracetam 1 tab(s) orally Active 750 [...] mg [facility] Coumadin 1 tab(s) orally Active 6 [...] Source Gabapentin 06/22/2018 [facility]: [facility] [place] [facility] [place] Metformin 06/22/2018 [facility]: [facility] [place] [facility] [place] Penicillins 06/22/2018 [facility]: [facility] [place] [facility] [place] penicillin Adverse Reaction hives Adverse Reaction Active 08/26/2018 [facility] Immunizations Immunization Date Given Site Status Last Updated Comments Source INFLUENZA MEDICARE 04/06/2018 [facility] INFLUENZA MEDICARE 06/18/2017 completed [facility] INFLUENZA MEDICARE 04/24/2016 completed [facility] Results Order Name Results Value Reference Range Date Interpretation Comments Source Blood sugar Blood sugar 172 07/11/2018 [facility]: [facility] [place] [facility] [place] Blood sugar Blood sugar 172 07/11/2018 [facility]: [facility] [place] [facility] [place] Blood sugar Blood sugar 269 07/11/2018 [facility]: [facility] [place] [facility] [place] Blood sugar Blood sugar 170 07/10/2018 [facility]: [facility] [place] [facility] [place] Blood sugar Blood sugar 204 07/10/2018 [facility]: [facility] [place] [facility] [place] Blood sugar Blood sugar 183 07/10/2018 [facility]: [facility] [place] [facility] [place] Blood sugar Blood sugar 183 07/10/2018 [facility]: [facility] [place] [facility] [place] Blood sugar Blood sugar 168 07/10/2018 [facility]: [facility] [place] [facility] [place] Blood sugar Blood sugar 160 07/09/2018 [facility]: [facility] [place] [facility] [place] Blood sugar Blood sugar 167 07/09/2018 [facility]: [facility] [place] [facility] [place] Blood sugar Blood sugar 137 07/09/2018 [facility]: [facility] [place] [facility] [place] Blood sugar Blood sugar 137 07/09/2018 [facility]: [facility] [place] [facility] [place] Blood sugar Blood sugar 183 07/09/2018 [facility]: [facility] [place] [facility] [place] Blood sugar Blood sugar 290 07/08/2018 [facility]: [facility] [place] [facility] [place] Blood sugar Blood sugar 175 07/08/2018 [facility]: [facility] [place] [facility] [place] Blood sugar Blood sugar 139 07/08/2018 [facility]: [facility] [place] [facility] [place] Blood sugar Blood sugar 215 07/08/2018 [facility]: [facility] [place] [facility] [place] Blood sugar Blood sugar 192 07/07/2018 [facility]: [facility] [place] [facility] [place] Blood sugar Blood sugar 148 07/07/2018 [facility]: [facility] [place] [facility] [place] Blood sugar Blood sugar 119 07/07/2018 [facility]: [facility] [place] [facility] [place] Blood sugar Blood sugar 119 07/07/2018 [facility]: [facility] [place] [facility] [place] Blood sugar Blood sugar 251 07/07/2018 [facility]: [facility] [place] [facility] [place] Blood sugar Blood sugar 212 07/06/2018 [facility]: [facility] [place] [facility] [place] Blood sugar Blood sugar 224 07/06/2018 [facility]: [facility] [place] [facility] [place] Blood sugar Blood sugar 129 07/06/2018 [facility]: [facility] [place] [facility] [place] Blood sugar Blood sugar 129 07/06/2018 [facility]: [facility] [place] [facility] [place] Blood sugar Blood sugar 205 07/06/2018 [facility]: [facility] [place] [facility] [place] Blood sugar Blood sugar 215 07/05/2018 [facility]: [facility] [place] [facility] [place] Blood sugar Blood sugar 198 07/05/2018 [facility]: [facility] [place] [facility] [place] Blood sugar Blood sugar 163 07/05/2018 [facility]: [facility] [place] [facility] [place] Blood sugar Blood sugar 163 07/05/2018 [facility]: [facility] [place] [facility] [place] Blood sugar Blood sugar 218 07/05/2018 [facility]: [facility] [place] [facility] [place] Blood sugar Blood sugar 318 07/04/2018 [facility]: [facility] [place] [facility] [place] Blood sugar Blood sugar 192 07/04/2018 [facility]: [facility] [place] [facility] [place] Blood sugar Blood sugar 175 07/04/2018 [facility]: [facility] [place] [facility] [place] Blood sugar Blood sugar 304 07/04/2018 [facility]: [facility] [place] [facility] [place] Blood sugar Blood sugar 134 07/03/2018 [facility]: [facility] [place] [facility] [place] Blood sugar Blood sugar 296 07/03/2018 [facility]: [facility] [place] [facility] [place] Blood sugar Blood sugar 177 07/03/2018 [facility]: [facility] [place] [facility] [place] Blood sugar Blood sugar 177 07/03/2018 [facility]: [facility] [place] [facility] [place] Blood sugar Blood sugar 174 07/03/2018 [facility]: [facility] [place] [facility] [place] Blood sugar Blood sugar 270 07/02/2018 [facility]: [facility] [place] [facility] [place] Blood sugar Blood sugar 150 07/02/2018 [facility]: [facility] [place] [facility] [place] Blood sugar Blood sugar 119 07/02/2018 [facility]: [facility] [place] [facility] [place] Blood sugar Blood sugar 119 07/02/2018 [facility] [place] [facility] [place] Blood sugar Blood sugar 253 07/02/2018 [facility] [place] [facility] [place] Blood sugar Blood sugar 314 07/01/2018 [facility]: [facility] [place] [facility] [place] Blood sugar Blood sugar 216 07/01/2018 [facility] [place] [facility] [place] Blood sugar Blood sugar 226 07/01/2018 [facility] [place] [facility] [place] Blood sugar Blood sugar 226 07/01/2018 [facility] [place] [facility] [place] Blood sugar Blood sugar 202 07/01/2018 [facility]: [facility] [place] [facility] [place] Blood sugar Blood sugar 325 06/30/2018 [facility]: [facility] [place] [facility] [place] Blood sugar Blood sugar 289 06/30/2018 [facility]: [facility] [place] [facility] [place] Blood sugar Blood sugar 219 06/30/2018 [facility]: [facility] [place] [facility] [place] Blood sugar Blood sugar 219 06/30/2018 [facility]: [facility] [place] [facility] [place] Blood sugar Blood sugar 217 06/30/2018 [facility] [place] [facility] [place] Blood sugar Blood sugar 240 06/29/2018 [facility]: [facility] [place] [facility] [place] Blood sugar Blood sugar 174 06/29/2018 [facility]: [facility] [place] [facility] [place] Blood sugar Blood sugar 218 06/29/2018 [facility] [place] [facility] [place] Blood sugar Blood sugar 218 06/29/2018 [facility]: [facility] [place] [facility] [place] Blood sugar Blood sugar 249 06/29/2018 [facility]: [facility] [place] [facility] [place] Blood sugar Blood sugar 224 06/28/2018 [facility]: [facility] [place] [facility] [place] Blood sugar Blood sugar 275 06/28/2018 [facility]: [facility] [place] [facility] [place] Blood sugar Blood sugar 190 06/28/2018 [facility]: [facility] [place] [facility] [place] Blood sugar Blood sugar 205 06/28/2018 [facility]: [facility] [place] [facility] [place] [facility] Blood sugar Blood sugar 212 06/27/2018 [facility]: [facility] [place] [facility] [place] Blood sugar Blood sugar 238 06/27/2018 [facility]: [facility] [place] [facility] [place] Blood sugar Blood sugar 165 06/27/2018 [facility]: [facility] [place] [facility] [place] Blood sugar Blood sugar 165 06/27/2018 [facility] [place] [facility] [place] Blood sugar Blood sugar 262 06/27/2018 [facility]: [facility] [place] [facility] [place] Blood sugar Blood sugar 232 06/26/2018 [facility]: [facility] [place] [facility] [place] Blood sugar Blood sugar 231 06/26/2018 [facility]: [facility] [place] [facility] [place] Blood sugar Blood sugar 192 06/26/2018 [facility]: [facility] [place] [facility] [place] Blood sugar Blood sugar 192 06/26/2018 [facility] [place] [facility] [place] Blood sugar Blood sugar 243 06/25/2018 [facility]: [facility] [place] [facility] [place] Blood sugar Blood sugar 172 06/25/2018 [facility] [place] [facility] [place] Blood sugar Blood sugar 188 06/25/2018 [facility]: [facility] [place] [facility] [place] Blood sugar Blood sugar 188 06/25/2018 [facility]: [facility] [place] [facility] [place] Blood sugar Blood sugar 240 06/25/2018 [facility] [place] [facility] [place] Blood sugar Blood sugar 192 06/25/2018 [facility] [place] [facility] [place] Blood sugar Blood sugar 285 06/24/2018 [facility]: [facility] [place] [facility] [place] [facility] Blood sugar Blood sugar 182 06/24/2018 [facility]: [facility] [place] [facility] [place] Blood sugar Blood sugar 182 06/24/2018 [facility] [place] [facility] [place] Blood sugar Blood sugar 238 06/24/2018 [facility] [place] [facility] [place] [facility] Blood sugar Blood sugar 313 06/23/2018 [facility]: [facility] [place] [facility] [place] [facility] Blood sugar Blood sugar 300 06/23/2018 [facility] [place] [facility] [place] Blood sugar Blood sugar 198 06/23/2018 [facility] [place] [facility] [place] Blood sugar Blood sugar 212 06/23/2018 [facility] [place] [facility] [place] [facility] Pathology Reports No Data Provided for [...] Hg) 129 07/11/2018 [facility]: [facility] [place] [facility] [place] Diastolic (mm Hg) 60 07/11/2018 [facility]: [facility] [place] [facility] [place] Heart Rate 87 {beats}/min 07/11/2018 [facility]: [facility] [place] [facility] [place] Systolic (mm Hg) 122 07/11/2018 [facility]: [facility] [place] [facility] [place] Diastolic (mm Hg) 77 07/11/2018 [facility]: [facility] [place] [facility] [place] [facility] Heart Rate 90 {beats}/min 07/11/2018 SNF: [facility] Systolic (mm Hg) 137 07/10/2018 SNF: [facility] Diastolic (mm Hg) 67 07/10/2018 SNF: [facility] Heart Rate 90 {beats}/min 07/10/2018 SNF: [facility] Systolic (mm Hg) 131 07/10/2018 SNF: [facility] Diastolic (mm Hg) 75 07/10/2018 SNF: [facility] Heart Rate 75 {beats}/min 07/10/2018 SNF: [facility] Systolic (mm Hg) 142 07/09/2018 SNF: [facility] Diastolic (mm Hg) 83 07/09/2018 SNF: [facility] Heart Rate 88 {beats}/min 07/09/2018 SNF: [facility] Systolic (mm Hg) 115 07/09/2018 SNF: [facility] Diastolic (mm Hg) 60 07/09/2018 SNF: [facility] Heart Rate 75 {beats}/min 07/09/2018 SN[facility]: [facility] Systolic (mm Hg) 126 07/08/2018 SNF: [facility] Diastolic (mm Hg) 67 07/08/2018 SNF: [facility] Heart Rate 80 {beats}/min 07/08/2018 SNF: [facility] Systolic (mm Hg) 105 07/07/2018 SNF: [facility] Diastolic (mm Hg) 63 07/07/2018 SNF: [facility] Heart Rate 78 {beats}/min 07/07/2018 SN[facility]: [facility] Systolic (mm Hg) 126 07/06/2018 SNF: [facility] Diastolic (mm Hg) 74 07/06/2018 SNF: [facility] Heart Rate 81 {beats}/min 07/06/2018 SN[facility]: [facility] Systolic (mm Hg) 129 07/06/2018 SNF: [facility] Diastolic (mm Hg) 68 07/06/2018 SNF: [facility] Heart Rate 84 {beats}/min 07/06/2018 SN[facility]: [facility] Systolic (mm Hg) 122 07/05/2018 SNF: [facility] Diastolic (mm Hg) 65 07/05/2018 SNF: [facility] Heart Rate 70 {beats}/min 07/05/2018 SNF: [facility] Systolic (mm Hg) 129 07/05/2018 SNF: [facility] Diastolic (mm Hg) 62 07/05/2018 SNF: [facility] Heart Rate 78 {beats}/min 07/05/2018 SNF: [facility] Systolic (mm Hg) 118 07/04/2018 SNF: [facility] Diastolic (mm Hg) 89 07/04/2018 SNF: [facility] Heart Rate 71 {beats}/min 07/04/2018 SNF: [facility] Systolic (mm Hg) 132 07/03/2018 SNF: [facility] Diastolic (mm Hg) 73 07/03/2018 SNF: [facility] Heart Rate 84 {beats}/min 07/03/2018 SNF: [facility] Systolic (mm Hg) 126 07/02/2018 SNF: [facility] Diastolic (mm Hg) 68 07/02/2018 SNF: [facility] Heart Rate 71 {beats}/min 07/02/2018 SNF: [facility] Systolic (mm Hg) 122 07/02/2018 SNF: [facility] Diastolic (mm Hg) 60 07/02/2018 SNF: [facility] Heart Rate 73 {beats}/min 07/02/2018 SN[facility]: [facility] Systolic (mm Hg) 124 07/01/2018 SNF: [facility] Diastolic (mm Hg) 74 07/01/2018 SNF: [facility] Heart Rate 81 {beats}/min 07/01/2018 SNF: [facility] Systolic (mm Hg) 118 07/01/2018 SNF: [facility] Diastolic (mm Hg) 82 07/01/2018 SNF: [facility] Heart Rate 83 {beats}/min 07/01/2018 SN[facility]: [facility] Systolic (mm Hg) 115 06/30/2018 SNF: [facility] Diastolic (mm Hg) 81 06/30/2018 SNF: [facility] Heart Rate 81 {beats}/min 06/30/2018 SNF: [facility] Systolic (mm Hg) 117 06/29/2018 SNF: [facility] Diastolic (mm Hg) 60 06/29/2018 SNF: [facility] Heart Rate 62 {beats}/min 06/29/2018 SNF: [facility] Systolic (mm Hg) 118 06/29/2018 SNF: [facility] Diastolic (mm Hg) 61 06/29/2018 SNF: [facility] Heart Rate 69 {beats}/min 06/29/2018 SNF: [facility] Systolic (mm Hg) 128 06/28/2018 SNF: [facility] Diastolic (mm Hg) 66 06/28/2018 SNF: [facility] Heart Rate 76 {beats}/min 06/28/2018 SN[facility]: [facility] Systolic (mm Hg) 139 06/28/2018 SNF: [facility] Diastolic (mm Hg) 77 06/28/2018 SNF: [facility] Heart Rate 81 {beats}/min 06/28/2018 SN[facility]: [facility] Systolic (mm Hg) 128 06/27/2018 SNF: [facility] Diastolic (mm Hg) 71 06/27/2018 SN[facility]: [facility] Heart Rate 84 {beats}/min 06/27/2018 SN[facility]: [facility] Systolic (mm Hg) 117 06/26/2018 SNF: [facility] Diastolic (mm Hg) 65 06/26/2018 SN[facility]: [facility] Heart Rate 80 {beats}/min 06/26/2018 SN[facility]: [facility] Systolic (mm Hg) 116 06/26/2018 SNF: [facility] Diastolic (mm Hg) 63 06/26/2018 SNF: [facility] Heart Rate 75 {beats}/min 06/26/2018 SN[facility]: [facility] Systolic (mm Hg) 116 06/25/2018 SNF: [facility] Diastolic (mm Hg) 88 06/25/2018 SN[facility]: [facility] Heart Rate 86 {beats}/min 06/25/2018 SN[facility]: [facility] Systolic (mm Hg) 124 06/25/2018 SN[facility]: [facility] Diastolic (mm Hg) 64 06/25/2018 SN[facility]: [facility] Heart Rate 61 {beats}/min 06/25/2018 SN[facility]: [facility] Systolic (mm Hg) 117 06/24/2018 SN[facility]: [facility] Diastolic (mm Hg) 62 06/24/2018 SN[facility]: [facility] Heart Rate 82 {beats}/min 06/24/2018 SN[facility]: [facility] Systolic (mm Hg) 156 06/24/2018 SNF: [facility] Diastolic (mm Hg) 71 06/24/2018 SN[facility]: [facility] Heart Rate 77 {beats}/min 06/24/2018 SN[facility]: [facility] Weight 189.8 06/23/2018 SNF: [facility] Height 63 06/23/2018 SNF: [facility] Weight 198 06/10/2018 [facility] [...] Provider ADM Date DC Date Status Source [facility] Unknown [id number] 04/24/2016 04/24/2016 [facility] Unknown [id number] 04/24/2016 04/24/2016 [facility] Unknown [id number] 04/24/2016 04/24/2016 [facility] Unknown [id number] 04/24/2016 04/24/2016 [facility] Unknown [id number] 04/24/2016 04/24/2016 [facility] [id number] 04/24/2016 04/24/2016 [facility] Unknown [id number] 04/29/2016 04/29/2016 [facility] [id number] 04/29/2016 04/29/2016 [facility] [id number] 04/29/2016 04/29/2016 [facility] Unknown [id number] 04/29/2016 04/29/2016 [facility] Unknown [id number] 04/29/2016 04/29/2016 [facility] [id number] 05/27/2016 05/27/2016 [facility] [id number] 05/27/2016 05/27/2016 [facility] Unknown [id number] 05/27/2016 05/27/2016 [facility] [id number] 05/27/2016 05/27/2016 [facility] [id number] 06/24/2016 06/24/2016 [facility] [id number] 06/24/2016 06/24/2016 [facility] [id number] 06/24/2016 06/24/2016 [facility] Message [id number] 07/15/2016 07/15/2016 [facility] Message [id number] 07/15/2016 07/15/2016 [facility] Unknown [id number] 08/12/2016 08/12/2016 [facility] Procedures No Data Provided for This Section Assessment and Plan No Data Provided for This Section Plan of Care No Data Provided for This Section Social History Social History Date Source Smoking StatusStart DateEnd Date Unknown if ever smoked 07/11/2018 13:44:46 07/10/2018 SNF: [facility] Social History ElementQualifiersDate Reported Tobacco Use: . Are you a: Never Smoker August 12, 2016 caffeine yes. caffeine Yes 2 cups per day August 12, 2016 alcohol no. alcohol No August 12, 2016 Children: . sons:1 daughters:1 August 12, 2016 Marital Status: . August 12, 2016 Exercise: no. Do you exercise? No August 12, 2016 08/12/2016 [facility] Family History Value Date Source QualifierDescriptionCommentDate Reported [...] Directives Advance Directives Cardiopulmonary Resuscitation 07/11/2018 SNF: [facility] Functional Status No Data Provided for This Section
[2018-12-11] MEDS: SODIUM CHLORIDE 0.9% 1000ML 1,000 ML IV SCH (20:12)
--- NOTE | 2018-12-11 23:45 | NUR ---
Pt admitted to room 205 via stretcher. Pt alert to name. Expressive dysphagia. Pt bedbound with diaper. Incontinent B/B. Dx: Possible extension of previous left MCA Stroke. Bilateral heels and outer side of feet blanchable redness. S/T to left arm adjacent to elbow, Drgs c/d/i. 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 Oriented Pt/family to room. Bed low and locked. Call machado within reach. Will continue to monitor.
[2018-12-12] VITALS (9 sets, daily range): BP systolic 102–131; BP diastolic 57–63
[2018-12-12 04:19] LABS: BASOPHILS # (AUTO) 0.1 (0.0-0.1); BASOPHILS % 1.1 % (0.0-1.0); EOSINOPHILS # (AUTO) 0.3 (0.0-0.4); EOSINOPHILS % 3.1 % (0.0-6.0); HEMATOCRIT 39.2 % (34.2-44.1); LYMPHOCYTES % 33.9 % (18.0-39.1); MEAN CORPUSCULAR HEMOGLOBIN 29.5 pg (28-32); MEAN CORPUSCULAR HGB CONC 33.2 g/dL (31-35); MEAN CORPUSCULAR VOLUME 88.9 fL (81-99); MONOCYTES # (AUTO) 1.1 (0.2-0.8); MONOCYTES % 12.1 % (4.4-11.3); NEUTROPHILS # (AUTO) 4.3 (2.1-6.9); NEUTROPHILS % 48.6 % (38.7-80.0); PLATELET COUNT 255 x10e3/uL (140-360); RED BLOOD COUNT 4.41 x10e6/uL (3.6-5.1); RED CELL DISTRIBUTION WIDTH 14.1 % (11.7-14.4)
[2018-12-12] MEDS ORDERED: COREG3.125 MG PO (04:32)
[2018-12-12] MEDS ORDERED: PANTOPRAZOLE SO40 MG PO (04:32)
[2018-12-12] MEDS ORDERED: LYRICA25 MG PO (04:32)
[2018-12-12] MEDS ORDERED: COQ-10100 MG (04:32)
[2018-12-12] MEDS ORDERED: WARFARIN SODIUM3 MG PO (04:32)
[2018-12-12] MEDS ORDERED: LEVETIRACETAM500 MG (04:32)
[2018-12-12] MEDS ORDERED: TRIAMTERENE-HCTZ1 EA PO (04:32)
[2018-12-12] MEDS ORDERED: OMEGA 3 FISH O1 EACH PO (04:32)
[2018-12-12 04:36] LABS: ANION GAP 14.9 mmol/L (8-16); BLOOD UREA NITROGEN 23 mg/dL (7-26); BUN/CREATININE RATIO 26 (6-25); CALCIUM 8.7 mg/dL (8.4-10.2); CARBON DIOXIDE 25 mmol/L (22-29); CHLORIDE 99 mmol/L (98-107); CHOL/HDL RATIO 4.3 (3.0-3.6); CHOLESTEROL 128 MD/DL (0-199); CREATININE, SERUM 0.87 mg/dL (0.57-1.11); EST GLOMERULAR FILTRATION RATE > 60 ML/MIN (60-); GLUCOSE 125 mg/dL (74-118); HDL CHOLESTEROL 30 MG/DL (40-60); LDL CHOLESTEROL 66 MG/DL (60-130); POTASSIUM 3.9 mmol/L (3.5-5.1); SODIUM 135 mmol/L (136-145); TRIGLYCERIDES 162 MG/DL (0-149)
[2018-12-12] MEDS ORDERED: DEXTROSE 50% SYRINGE 50 ML IV PRN (05:00)
[2018-12-12] MEDS ORDERED: HYDRALAZINE HCL 20 MG/ML VIAL IV PRN (05:15)
[2018-12-12] MEDS ORDERED: ACETAMINOPHEN 325 MG TAB PO PRN (05:15)
[2018-12-12] MEDS: SODIUM CHLORIDE 0.9% 1000ML 1,000 ML IV SCH ×3 (05:30→21:00)
--- NOTE | 2018-12-12 06:50 | NUR ---
Aseptically catheterized to collect urine for urine culture specimen. Urine return 1000ml. Urine herbie, clear with some white discharge, no odor noted.
[2018-12-12 07:07] LABS: MAGNESIUM 2.1 MG/DL (1.3-2.1)
[2018-12-12 07:26] LABS: B-TYPE NATRIURETIC PEPTIDE2 65.9 pg/mL (0-100)
[2018-12-12 07:44] LABS: THYROID STIMULATING HORMONE 0.113 uIU/mL (0.350-4.940)
[2018-12-12] MEDS: PREDNISONE 20 MG TAB PO SCH (10:31)
[2018-12-12] MEDS: ASPIRIN 81 MG ENTERIC COATED PO SCH (10:31)
[2018-12-12] MEDS: LEVETIRACETAM 500 MG TAB PO SCH ×2 (10:31→16:15)
[2018-12-12] MEDS: INSULIN LISPRO 100 UNIT/1 ML 3ML VIAL SQ SCH ×3 (11:30→21:20)
--- NOTE | 2018-12-12 15:47 | Consultation ---
DATE OF CONSULTATION: 12/12/2018 Neurology Consult Note HISTORY OF PRESENT ILLNESS: Ms. Vera is an 83-year-old right-hand dominant woman with an extensive past medical history, including numerous cardiovascular risk factors, admitted to [facility] on December 11, 2018, under observation status for probable stroke. Approximately two days prior to admission, Ms. Vera developed worsening dysarthria, aphasia, and dizziness further described as a vertiginous sensation. The patient's son, who is at the bedside and provides the majority of the history, endorses poor balance with impairment of gait and possible mild confusion as well. Suspecting his mother symptoms were due to elevated serum glucoses, the patient's son treated her with insulin as prescribed. However, on the afternoon of December 11, 2018, Ms. Vera attended an appointment with her nursing faculty. Suspecting the patient had experienced another stroke, Ms. Vera and her son were instructed to proceed to the emergency center at [facility] for further evaluation of her symptoms. Upon arrival in the emergency center, the patient was afebrile with a blood pressure of 115/66 mmHg and a pulse of 85 beats per minute. Documentation of the patient's neurological examination is not available for review at present. While in the emergency center, Ms. Vera underwent a CT of the brain without contrast. This study did not reveal evidence of recent large territorial ischemia or hemorrhage. However, remote ischemia in the posterior branch of the left middle cerebral artery was once again noted. Ms. Vera was then admitted to [facility] under observation status for further evaluation and treatment of her symptoms. According to the patient's son, Ms. Vera has experienced two prior strokes. Residual deficits from the first stroke included: Mild dysarthria and right hemiparesis. However, the subsequent stroke, caused worsening dysarthria and mild aphasia. Ms. Vera was recently diagnosed with an upper respiratory infection for which she is receiving/has received treatment. The patient's son does not report nausea, vomiting, diarrhea, decreased appetite, or decreased oral intake over the past several days. The patient's son reports his mother is compliant with prescription medications. REVIEW OF SYSTEMS: Confusion, dysarthria, aphasia, impairment of balance and gait, dizziness further described as a vertiginous sensation. Otherwise, a 12-point review of systems is negative. PAST MEDICAL HISTORY: Hypertension, hyperlipidemia, diabetes mellitus type 2, coronary artery disease, atrial fibrillation, gastroesophageal reflux disease, secondary seizure disorder, two prior strokes with residual dysarthria, aphasia, right hemiparesis, and peripheral vascular disease. PAST SURGICAL HISTORY: Cholecystectomy, appendectomy, 4-vessel CABG, pacemaker implantation, procedures for peripheral vascular disease, bilateral cataract removal, bilateral tubal ligation or hysterectomy. PAST HOSPITALIZATIONS: Surgeries/procedures as listed, childbirth, numerous hospitalizations for various symptoms. FAMILY MEDICAL HISTORY: Coronary artery disease with myocardial infarction, skin cancer. SOCIAL HISTORY: Ms. Vera is a . She is retired. There is a remote history of tobacco use, but Ms. Vera quit smoking cigarettes approximately 40+ years ago. The patient has a prior history of social alcohol use. However, she quit drinking alcohol "a long time ago." There is no current or prior recreational drug use. HOME MEDICATIONS: Atorvastatin 40 mg by mouth daily, Coreg 3.125 mg by mouth daily, Lasix 40 mg by mouth daily, levetiracetam 750 mg by mouth twice daily, lisinopril 2.5 mg by mouth daily, omega-3 fatty acids/fish oil 520 mg by mouth daily, Protonix 40 mg by mouth daily, prednisone 40 mg by mouth daily x4 days, Lyrica 25 mg by mouth daily, triamterene hydrochlorothiazide 37.5-25 mg one tablet by mouth daily, coenzyme Q10 100 mg by mouth daily, warfarin 6 mg by mouth daily, insulin. HOSPITAL MEDICATIONS: Tylenol, aspirin, Lipitor, hydralazine, Humalog, Keppra, Zofran, Protonix, prednisone, warfarin, sodium chloride. ALLERGIES: PENICILLIN AND METFORMIN. NO KNOWN FOOD ALLERGIES. NO KNOWN ALLERGIES TO LATEX. NO KNOWN ALLERGIES TO IODINE OR OTHER CONTRAST MATERIALS. PHYSICAL EXAMINATION: VITAL SIGNS: Height 64 inches, weight 225 pounds, BMI 38.6 kg/m2, blood pressure 111/63 mmHg, pulse 78 beats per minute, respiratory rate 20 breaths per minute, and oxygen saturation 97% on room air. GENERAL: The patient is awake and alert, does not appear distressed. Obese. HEENT: Normocephalic, atraumatic. Pupils are surgical. Moist mucous membranes. NECK: Supple. No appreciable thyromegaly. No appreciable carotid bruits. CARDIOVASCULAR: S1, S2, regular rate and rhythm. No murmurs, rubs, or gallops. RESPIRATORY: Clear to auscultation bilaterally. No wheezes, rhonchi, or rales. EXTREMITIES: The skin is warm and dry. No clubbing, cyanosis, or edema. The posterior tibial and dorsalis pedis pulses are 1+ and symmetric. SKIN: No rashes or lesions. NEUROLOGIC: Memory/Attention: The patient is awake and alert, unable to answer orientation questions, does not follow commands. The patient is able to mimic. Cranial Nerves: Cranial nerve 1 - not tested. Cranial nerve 2, 3, 4, and 6 - pupils are surgical. Extraocular movements intact. No nystagmus. Cranial nerve 5 - sensation to pinprick is intact in the bilateral V1 through V3 distributions. Strength of the temporalis and masseter muscles are within normal limits. Cranial nerve 7 - the face is symmetric as are all facial movements. Strength is within normal limits. Cranial nerve 8 - hearing is markedly decreased to finger rub bilaterally. Cranial nerve 9, 10-the soft palate elevates equally and symmetrically. Cranial nerve 11 - normal strength of the bilateral sternocleidomastoid and trapezius muscles. Cranial nerve 12 - the tongue protrudes midline and moves symmetrically from [id number]. Strength: Bulk is normal. The patient is unable to participate in a formal assessment of strength. Normal functional movements of all 4 extremities are observed. Strength is grossly 5/5 in both arms. Tone is mildly increased in the right arm and right leg. DTRs: Deep tendon reflexes are 1+ and symmetric at the triceps, biceps, and brachioradialis. Deep tendon reflexes are absent and symmetric at the patellas and Achilles. Plantar responses are flexor bilaterally. Sensation: The patient withdraws both arms and both legs equally and symmetrically to peripheral noxious stimulation. Cerebellar: Unable to assess secondary to mixed aphasia. Gait: Deferred. Speech: Spontaneous speech is mildly to moderately dysarthric with mixed aphasia. Repetition is not intact. Involuntary movements: None. Pronator Drift: None. LABORATORY DATA: The most recent basic metabolic panel is significant for a BUN to creatinine ratio of 26 and a glucose of 125. Liver function panel collected on December 11, 2018, is unremarkable. Cardiac enzymes are negative x2. B-natriuretic peptide 65.9. TSH 1.982. Total cholesterol 128, triglycerides 162, LDL cholesterol 66, HDL cholesterol 30. Hemoglobin A1c 7.9. The CBC with differential and platelets reveals a white blood cell count of 8.93 with 48.6% neutrophils, 33.9% lymphocytes, 12.1% monocytes, 3.1% eosinophils, and 1.1% basophils. The hemoglobin and hematocrit are 13.0 and 39.2, respectively. The platelet count is 255. PT 23.1, INR 1.97, PTT 34.5. Urinalysis is significant only for 2-5 hyaline casts. A urine culture collected on December 11, 2018, reveals no growth at 18 to 24 hours. DIAGNOSTIC STUDIES: Electrocardiogram of 12/11/2018: Accelerated junctional rhythm with occasional premature ventricular complexes and fusion complexes at 78 beats per minute. Incomplete right bundle-branch block. Chest x-ray 12/11/2018: Low lung volumes. No focal pneumonia or pulmonary edema. Stable cardiomegaly. CT of the brain without contrast 12/11/2018: On my review, there is no evidence of recent large territorial ischemia, hemorrhage, mass, or mass effect. Chronic ischemia is seen in the posterior division of the left middle cerebral artery. There is mild diffuse cerebral atrophy with compensatory dilatation of the ventricles, probably appropriate for the patient's age. There findings compatible with moderate chronic small vessel ischemic disease. Echocardiogram 12/12/2018: Ejection fraction 60% to 65%. Mild aortic insufficiency. Small pericardial effusion. Bilateral carotid artery ultrasound with Doppler 12/12/2018: There is no atherosclerosis in either carotid artery system. Flow is antegrade in the bilateral vertebral arteries. ASSESSMENT AND PLAN: Ms. Vera is an 83-year-old right-hand dominant woman with multiple cardiovascular risk factors, admitted to [facility] under observation status on December 11, 2018, with a 24-48 hour history of worsening dysarthria, aphasia, and vertigo. The patient has undergone a thorough neurological examination with findings detailed above. The patient's laboratory data and other diagnostic studies have been reviewed and are documented above. Unfortunately, due to the presence of a pacemaker, Ms. Vera is unable to undergo a MRI of the brain without contrast. Based solely on current imaging studies, it is impossible to exclude a diagnosis of acute on chronic ischemic stroke. In my opinion, Ms. Vera has likely experienced a new ischemic stroke in the left middle cerebral artery distribution. RECOMMENDATIONS: Are as follows: 1. A stroke evaluation is completed. 2. At present, the patient is being anticoagulated with warfarin 6 mg by mouth daily. However, the patient's son reports the nursing faculty was considering transitioning this Vera from warfarin to Xarelto. I agree with this change in anticoagulants. Therefore, treatment with Coumadin will be discontinued. Ms. Vera will be prescribed Adderall 20 mg by mouth daily for stroke prophylaxis. 3. As the patient is approximately 48+ hours status post symptom onset, her blood pressure may be gradually normalized. Her goal blood pressure prior to discharge is less than 140/90 mmHg. However, I would maintain the patient's blood pressure is slightly higher to avoid complications from hypotension. 4. The patient's total cholesterol and LDL are at goal. Continue treatment with the patient's home medication of atorvastatin 40 mg by mouth at bedtime daily. 5. The patient's goal hemoglobin A1c is less than 7.0. Ms. Vera hemoglobin A1c is 7.9. Defer treatment of diabetes mellitus type 2 to the primary and other services following the patient. Continue treatment with sliding scale insulin per protocol. Tight glycemic control is recommended while the patient is hospitalized. 6. Speech and Physical Therapy consultations have been ordered and are pending. 7. GI prophylaxis with Protonix 40 mg by mouth daily. DVT prophylaxis with Xarelto 20 mg by mouth daily. 8. For seizures, treatment with the patient's home medication of Keppra 750 mg by mouth twice daily will be continued. Defer treatment of the remaining medical comorbidities to the primary and other services following the patient. Thank you for this consultation. I will continue to follow the patient while she remains in the hospital. TIME SPENT: 70 minutes. Nora Erwin MD CP/WILLIAM /[id number] [facility]
[2018-12-12] MEDS ORDERED: RIVAROXABAN 20 MG TABLET PO SCH (17:00)
[2018-12-12] MEDS ORDERED: PANTOPRAZOLE SOD 40 MG TABEC PO SCH (17:00)
[2018-12-12] MEDS ORDERED: WARFARIN SOD 3 MG TAB PO SCH (17:00)
[2018-12-12 17:45] LABS: FREE T4 (FREE THYROXINE) 1.06 ng/dL (0.8-1.8)
--- NOTE | 2018-12-12 18:08 | NUR ---
Bladder scan done at this time, 0-37cc of urine observed.
--- NOTE | 2018-12-12 18:51 | NUR ---
Nutrition Screen Note RD Recommendation for Physician: 1. Continue with Cardiac Diet, add diabetic restrictions Plan of Care: RD following, monitoring for tolerance and adequacy Nutrition reason for involvement: Nutrition Risk Trigger Primary Diagnose(s): Possible extension of previous left MCA PMH: History of CVA, coronary artery disease, diabetes, hypothyroid, hypertension, and hyperlipidemia Ht: 64in Wt: 225lb BMI: 38.6 kg/m2 IBW: 120lbs +/- 10% RD Assessment: (12/12) Chart reviewed. Labs and meds reviewed. 83 y/o F admitted with possible extension of previous left MCA Stroke. Patient in with PT during time of visit, son at bedside able to provided nutrition and food related history. Per pts son, pt has been eating well, weight has been mostly stable. Pt denies N/V/D/C. No complains of any difficulty with chewing or swallowing. URBAN PLANNING PROFESSOR consult has been ordered. Will continue to monitor and follow. Current Diet: Cardiac Diet Malnutrition Evaluation (12/12) The patient does not meet criteria for a specified degree of malnutrition at this time. Will re-evaluate at follow-up as appropriate. Nutrition Care Level: LOW Signed: Vane Milian, MS, RDN, LD
[2018-12-12] MEDS ORDERED: ATORVASTATIN 20 MG TAB PO SCH (21:00)
--- NOTE | 2018-12-12 21:55 | NUR ---
NO RESPIRATORY DISTRESS OBSERVED, PATIENT ASSISTED WITH ADLS. SHE DENIES PAIN, DIABETIC SNACKS PROVIDED. BED ALARM ON, CALL LIGHT WITHIN EASY REACH AND PATIENT INSTRUCTED TO CALL FOR ASSISTANCE NEEDED.
[2018-12-13 00:23] VITALS: BP 102/50
--- NOTE | 2018-12-13 00:39 | NUR ---
WALKING ROUNDS MADE, PATIENT OBSERVED SOUNDLY ASLEEP WITHOUT RESPIRATORY DISTRESS. CALL LIGHT WITHIN EASY REACH, HER SON AT THE BEDSIDE.
[2018-12-13 04:00] VITALS: BP 129/60
[2018-12-13] MEDS ORDERED: XARELTO10 MG PO (04:40)
[2018-12-13] MEDS ORDERED: ASPIRIN EC81 MG PO (04:40)
--- NOTE | 2018-12-13 04:40 | NUR ---
PATIENT ASSISTED TO THE BEDSIDE COMMODE, SHE'S NOW BACK IN BED WITHOUT DISTRESS. BED ALARM ON, CALL LIGHT WITHIN EASY REACH. DR ROSAS'S INTERNAL COMBUSTION ENGINE INSPECTOR IN TO SEE THE PATIENT, PLAN IS FOR DISCHARGE TO HOME TODAY WITH SPEECH THERAPY.
[2018-12-13 05:10] LABS: BASOPHILS % 0.3 % (0.0-1.0); EOSINOPHILS # (AUTO) 0.1 (0.0-0.4); HEMATOCRIT 36.6 % (34.2-44.1); HEMOGLOBIN 11.9 g/dL (12.0-16.0); LYMPHOCYTES # (AUTO) 1.8 (1.0-3.2); LYMPHOCYTES % 18.7 % (18.0-39.1); MEAN CORPUSCULAR HEMOGLOBIN 29.2 pg (28-32); MEAN CORPUSCULAR HGB CONC 32.5 g/dL (31-35); MEAN CORPUSCULAR VOLUME 89.7 fL (81-99); NEUTROPHILS # (AUTO) 6.6 (2.1-6.9); NEUTROPHILS % 69.1 % (38.7-80.0); PLATELET COUNT 227 x10e3/uL (140-360); RED BLOOD COUNT 4.08 x10e6/uL (3.6-5.1); RED CELL DISTRIBUTION WIDTH 13.7 % (11.7-14.4)
[2018-12-13 05:27] LABS: BLOOD UREA NITROGEN 19 mg/dL (7-26); BUN/CREATININE RATIO 22 (6-25); CALCIUM 8.4 mg/dL (8.4-10.2); CARBON DIOXIDE 24 mmol/L (22-29); CHLORIDE 103 mmol/L (98-107); CREATININE, SERUM 0.85 mg/dL (0.57-1.11); EST GLOMERULAR FILTRATION RATE > 60 ML/MIN (60-); GLUCOSE 215 mg/dL (74-118); SODIUM 135 mmol/L (136-145)
[2018-12-13 07:53] VITALS: BP 144/78
[2018-12-13] MEDS: LEVETIRACETAM 500 MG TAB PO SCH (08:02)
[2018-12-13] MEDS: ASPIRIN 81 MG ENTERIC COATED PO SCH (08:02)
[2018-12-13] MEDS: PREDNISONE 20 MG TAB PO SCH (08:02)
--- NOTE | 2018-12-13 09:44 | NUR ---
CM SPOKE TO PATIENT AND PATIENT AT BEDSIDE REGARDING HOME HEALTH ORDER. PATIENT AWARE AND AGREES TO RESUME SERVICES WITH [facility]. PATIENT GIVEN CHOICES. CHOICE LETTER SIGNED FOR [facility] AND PLACED IN CHART. CLINICAL PENDING TO BE FAXED. CM CALLED ANSWERING SERVICE WHO PAGED SENIOR GAME DEVELOPERAIR BRAKE OPERATOR TO RETURN CALL WITH FAX NUMBER. [facility] (P) [phone] (F) PENDING RETURN CALL FROM CONCRETE PUDDLER SENIOR GAME DEVELOPER FOR FAX NUMBER
--- NOTE | 2018-12-14 14:46 | Discharge Summary ---
ADMISSION DIAGNOSES: Slurred speech with ataxia, hypertension, hyperlipidemia, gastroesophageal reflux disease, type 2 diabetes, acute kidney injury versus chronic kidney disease. History of atrial fibrillation, obesity. DISCHARGE DIAGNOSES: Slurred speech with ataxia, hypertension, hyperlipidemia, gastroesophageal reflux disease, type 2 diabetes, acute kidney injury versus chronic kidney disease. History of atrial fibrillation, obesity with presumed new ischemic stroke in the left middle cerebral artery distribution. HISTORY: The patient has a history of CAD, CVA, type 2 diabetes, hypothyroidism, hypertension, hyperlipidemia, and atrial fibrillation. SURGICAL HISTORY: Appendectomy, pacemaker, cholecystectomy, and CABG. FAMILY HISTORY: The patient's mom and dad had cancer. The patient's dad had a heart attack. SOCIAL HISTORY: Noncontributory. HOSPITAL COURSE: An 83-year-old female with history of CVA and slurred speech at baseline, was sent to the ER by rotary drill operator helper due to ataxia and worsening of her slurred speech. She denies dysphagia, vision changes, or weakness. On admission, chest x-ray showed no focal pneumonia or pulmonary edema. CT of the brain showed no acute intracranial findings. Urine culture, negative. Echo showed an EF of 50% to 65%. Bilateral carotid Doppler showed no significant stenosis. Neurology was consulted. The patient was unable to get an MRI due to the pacemaker, so per Neurology note, "it is impossible to exclude a diagnosis of [id number] ischemic stroke; in my opinion, Ms. Vera has likely experienced a new ischemic stroke in the middle cerebral artery distribution." The patient anticoagulation was changed from Coumadin to Xarelto per Neurology recommendation. She will discharge home on aspirin, Xarelto, and the rest of her home medicine minus Coumadin. She will follow up with primary care in 1 to 2 weeks. Physical therapy assessed her and says she does not need physical therapy at home. Speech therapy assessed, it turns that she does need speech therapy, which was arranged prior to discharge. The patient will discharge home and follow up with primary care as discussed. The patient understands discharge instructions and agrees to plan. Vital signs are stable. The patient is afebrile. Dictated by Renetta Leigh NP MD SILVIA Gorman/MODL /[id number]
== END 2018-12-13 10:33 | disposition home health service (06) ==
LOC: ER 13:15 → ERHOLD 19:52 → MED/SURG2 23:40
PROVIDERS: ADMIT Internal Medicine; ATTEND Internal Medicine
DX: I63.512 Cerebral infarction due to unspecified occlusion or stenosis of left middle cerebral artery (principal); R47.1 Dysarthria and anarthria; I69.320 Aphasia following cerebral infarction; I10 Essential (primary) hypertension; E11.9 Type 2 diabetes mellitus without complications; E78.5 Hyperlipidemia, unspecified; Z88.0 Allergy status to penicillin; Z88.8 Allergy status to other drugs, medicaments and biological substances; R42 Dizziness and giddiness; E86.0 Dehydration; F01.51 Vascular dementia, unspecified severity, with behavioral disturbance; I69.393 Ataxia following cerebral infarction; I69.328 Other speech and language deficits following cerebral infarction; I25.10 Atherosclerotic heart disease of native coronary artery without angina pectoris; I48.91 Unspecified atrial fibrillation; E03.9 Hypothyroidism, unspecified; Z95.1 Presence of aortocoronary bypass graft; Z82.49 Family history of ischemic heart disease and other diseases of the circulatory system; Z80.9 Family history of malignant neoplasm, unspecified; K21.9 Gastro-esophageal reflux disease without esophagitis; E66.9 Obesity, unspecified; Z68.38 Body mass index [BMI] 38.0-38.9, adult; N17.9 Acute kidney failure, unspecified; Z95.0 Presence of cardiac pacemaker; Z79.01 Long term (current) use of anticoagulants
CPT/HCPCS: 36415 ×3; 51701; 70450; 71045; 80048 ×2; 80053; 80061; 81001; 82550 ×2; 82553 ×2; 82948 ×2; 83036; 83735; 83880; 84439; 84443 ×2; 84484 ×2; 85025 ×3; 85610; 85730; 87086; 92523; 92610; 93005; 93306; 93880; 96361; 96372 ×2; 97116; 97161; 97530; 99284; G0378 ×3; J7030 ×2; J7512 ×2; J8597; S0164; 96360

== ENCOUNTER 2019-01-04 14:51 | Observation (INO) | payer MEDICARE, BC ==
[~2019-01-04] VITALS: Ht 162.6 cm; Wt 102.1 kg
[~2019-01-04 14:51] MED LIST changes: +ASPIRIN EC81 MG PO; +COQ-10100 MG; +COREG3.125 MG PO; +LEVETIRACETAM500 MG; +LYRICA25 MG PO; +OMEGA 3 FISH O1 EACH PO; +PANTOPRAZOLE SO40 MG PO; +TRIAMTERENE-HCTZ1 EA PO; +WARFARIN SODIUM3 MG PO; +XARELTO10 MG PO
--- OUTSIDE RECORDS SUMMARY | 2019-01-04 14:55 | XMS REPORT | Continuity of Care Document ---
Author Author [employer] Address Unknown Phone Unavailable Care Team Providers Care Assistant Case Manager Name Role Phone [employer] Unavailable Unavailable Problems Problem Status Onset Date Classification Date Reported Comments Source I63.9 CEREBRAL INFARCTION, UNSPECIFIED 06/22/2018 Diagnosis 07/11/2018 [facility] [place] [facility] R41.82 ALTERED MENTAL STATUS, UNSPECIFIED 06/22/2018 Diagnosis 07/11/2018 [facility]: [facility] [place] [facility] I69.322 DYSARTHRIA FOLLOWING CEREBRAL INFARCTION 06/22/2018 Diagnosis 07/11/2018 [facility]: [facility] [place] [facility] I10 ESSENTIAL HYPERTENSION 06/22/2018 Diagnosis 07/11/2018 [facility]: [facility] [place] [facility] E11.9 TYPE 2 DIABETES MELLITUS WITHOUT COMPLICATIONS 06/22/2018 Diagnosis 07/11/2018 [facility]: [facility] [place] [facility] M62.81 MUSCLE WEAKNESS 06/22/2018 Diagnosis 07/11/2018 [facility]: [facility] [place] [facility] R26.89 OTHER ABNORMALITIES OF GAIT AND MOBILITY 06/22/2018 Diagnosis 07/11/2018 [facility]: [facility] [place] [facility] R27.9 UNSPECIFIED LACK OF COORDINATION 06/22/2018 Diagnosis 07/11/2018 [facility]: [facility] [place] [facility] R26.81 UNSTEADINESS ON FEET 06/22/2018 Diagnosis 07/11/2018 [facility]: [facility] [place] [facility] R48.2 APRAXIA 06/22/2018 Diagnosis 07/11/2018 [facility]: [facility] [place] [facility] 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 06/22/2018 Diagnosis 07/11/2018 [facility]: [facility] [place] [facility] I48.91 UNSPECIFIED ATRIAL FIBRILLATION 06/22/2018 Diagnosis 07/11/2018 [facility]: [facility] [place] [facility] E78.5 HYPERLIPIDEMIA, UNSPECIFIED 06/22/2018 Diagnosis 07/11/2018 [facility]: [facility] [place] [facility] I25.10 ATHEROSCLEROTIC HEART DISEASE OF [place] CORONARY ARTERY WITHOUT ANGINA PECTORIS 06/22/2018 Diagnosis 07/11/2018 [facility]: [facility] [place] R56.9 UNSPECIFIED CONVULSIONS 06/22/2018 Diagnosis 07/11/2018 [facility]: [facility] [place] CVA Active 06/09/2014 Problem 12/13/2018 [facility] Cardiac pacemaker in situ Active Problem 11/12/2018 [facility] Type 2 diabetes mellitus with other circulatory complication, without long-term current use of insulin Active Problem 11/12/2018 [facility] Coronary artery disease involving [place] coronary artery of [place] heart without angina pectoris Active Problem 11/12/2018 [...] Diagnosis 06/18/2018 [facility] Cervical pain Active Problem 12/13/2018 [facility] Urinary tract infection Active Problem 12/13/2018 [facility] Medications Medication Details Route Status Patient Instructions Ordering Provider Order Date Source Aspirin (Aspirin Ec) 81 Mg Tablet. Every Morning Active Jairon 12/13/2018 [facility] Rivaroxaban (Xarelto) 10 Mg Tablet Daily At 1700 Active Jairon 12/13/2018 [facility] Warfarin Sodium 3 Mg Tablet, 6 Mg Oral Daily Active 12/13/2018 [facility] Amlodipine Besylate 5 Mg Tablet, 5 Mg Oral Daily Active 12/12/2018 [facility] Clopidogrel Bisulfate (Plavix) 75 Mg Tablet, 75 Mg Oral Daily Active 12/12/2018 [facility] Doxycycline Hyclate 100 Mg Capsule, 100 Mg Oral Twice A Day Active 12/12/2018 [facility] Furosemide (Lasix) 40 Mg Tablet, 40 Mg Oral Twice A Day Active 12/12/2018 [facility] Glyburide/Metformin Hcl (Glucovance 5-500 Mg Tablet) 1 Each Tablet, 2 Tab Oral Twice A Day Active 12/12/2018 [facility] Metoprolol Tartrate 50 Mg Tablet, 50 Mg Oral Twice A Day Active 12/12/2018 [facility] Sulfamethoxazole/Trimethoprim (Bactrim Ds Tablet) 1 Each Tablet, 1 Tab Oral Twice A Day Active 12/12/2018 [facility] Furosemide (Lasix) 40 Mg Tablet Daily Active [facility] 12/04/2018 [facility] Prednisone 20 Mg Tab Daily Active [facility] 12/04/2018 [facility] spironolactone 1 tab(s) orally Active 25 [facility] senna 1 tab(s) orally Active 8.6 mg orally once a day (at bedtime) [facility]2018 [facility] Coumadin Tablet 5 MG Give 1 tablet by mouth one time a day for blood thinner Oral Active 07/10/2018 [facility] [place] [facility] Insulin NPH (Human) (Isophane) Suspension 100 UNIT/ML Inject 10 unit subcutaneously one time a day for dm with dinner Subcutaneous Active 07/01/2018 [facility]: [facility] [place] Coumadin Tablet 4 MG Give 1 tablet by mouth one time a day for blood thinner Oral Active 06/29/2018 [facility]: [facility] [place] Carvedilol Tablet 3.125 MG Give 1 tablet by mouth every 12 hours for CAD Hold for SBP < 110 or HR < 60 Oral Active 06/26/2018 [facility]: [facility] [place] Fish Oil Capsule 1000 MG Give 1 capsule by mouth one time a day for supplement Oral Active 06/24/2018 [facility]: [facility] [place] [facility] Lyrica Capsule 25 MG Give 1 capsule by mouth one time a day for neuropathy Oral Active 06/24/2018 [facility]: [facility] [place] Coumadin Tablet 3 MG Give 1 tablet via G-Tube one time a day for blood thinner Oral Active 06/23/2018 [facility]: [facility] [place] Keppra Tablet 750 MG Give 1 tablet by mouth two times a day for seizure Oral Active 06/23/2018 [facility]: [facility] [place] [facility] Lyrica Capsule 25 MG Give 1 capsule by mouth one time a day for CVA Oral Inactive 06/23/2018 [place] [facility] FerrouSul Tablet 325 (65 Fe) MG Give 1 tablet by mouth one time a day for Anemia Oral Active 06/23/2018 [facility]: [facility] Fish Oil Capsule 1000 MG Give 1 capsule by mouth one time a day for CVA Oral Inactive 06/23/2018 [place] [facility] [place] [facility] Co Q-10 Capsule Give 1 capsule by mouth one time a day for Vitamin Oral Active 06/23/2018 [place] [facility] [place] [facility] Triamterene-HCTZ Capsule 37.5-25 MG Give 1 capsule by mouth one time a day for HTN Oral Active 06/23/2018 [place] [facility] [facility] Furosemide Tablet 40 MG Give 1 tablet by mouth one time a day for HTN Oral Active 06/23/2018 [facility]: [facility] Keppra Tablet 750 MG Give 1 tablet by mouth two times a day for CVA Oral Inactive 06/23/2018 [facility]: [facility] HumuLIN N Suspension 100 UNIT/ML Inject 23 unit subcutaneously one time a day for Diabetes Subcutaneous Active 06/23/2018 [facility]: [facility] Carvedilol Tablet 3.125 MG Give 1 tablet by mouth every 12 hours for CAD Oral Active 06/23/2018 [facility]: [facility] Insulin Lispro Solution Cartridge 100 UNIT/ML Inject as per sliding scale: if 0 - 150=0; 151 - 200=2; 201 - 250=4; 251 - 300=6; 301 - 350=8; 351 - 400=10; 401 - 999=12 GIVE 12 UNIT AND NOTIFY , subcutaneously before meals and at bedtime for Diabetes Mellitus Subcutaneous Active 06/23/2018 [facility]: [facility] Atorvastatin Calcium Tablet 40 MG Give 1 tablet by mouth at bedtime for Cholesterol Oral Active 06/23/2018 [place] [facility] [place] [facility] Pantoprazole Sodium Tablet Delayed Release 40 MG Give 1 tablet by mouth every 48 hours for GERD Oral Active 06/23/2018 [facility] lisinopril 1 tab(s) orally Active 2.5 mg orally once a day [facility] 06/10/2018 [facility] cephalexin 1 cap(s) orally Active 500 mg orally every 12 hours [facility] 06/10/2018 [facility] Lotrimin AF Cream 1 torsten applied topically Active 1% applied topically 2 times a day [facility] 06/10/2018 [facility] lisinopril 1 tab(s) orally Active 5 mg orally once a day [facility] 06/10/2018 [facility] fluconazole 1 tab(s) orally Active 150 mg orally once [facility] 06/10/2018 [facility] glipizide 1 tab(s) orally Active 10 mg orally Twice a day [facility] 01/10/2018 [facility] Colace 1 cap(s) orally Active sodium 100 mg orally Once daily [facility] 01/05/2018 [facility] Coreg 1 tab(s) orally Active 3.125 mg orally 2 times a day [facility] 09/17/2017 [facility] simethicone 1 tab(s) chewed Active 80 mg chewed 4 times a day (after meals and at bedtime) [facility] 09/17/2017 [facility] Warfarin Sodium Take one half orally Active 1 mg orally along with the 6 mg tablet once a day for [facility] 07/02/2017 [facility] furosemide 1 tab(s) orally Active 20 mg orally once a day [facility] 06/18/2017 [facility] gabapentin 1 cap(s) orally Active 300 mg orally Once at night [facility] 06/18/2017 [facility] Coumadin 1 tab(s) orally Active 6 mg orally once a day [facility] 04/17/2017 [facility] benzonatate 1 cap(s) orally Active 100 mg orally 3 times a day [facility] 03/12/2017 [facility] Warfarin Sodium 1 tab(s) orally Active 4 mg orally once a day [facility] 02/06/2017 [facility] hydrochlorothiazide-triamterene 1 cap(s) orally Active 25 mg- 37.5 mg orally once a day [facility] 01/15/2017 [facility] Coumadin 1 tab(s) orally Active 2 mg orally once a day [facility] 01/15/2017 [facility] Xarelto 1 tab(s) orally Active 10 mg orally once a day [facility] 11/18/2016 [facility] furosemide 1 tab(s) orally Active 20 mg orally once a day [facility] 11/18/2016 [facility] Xarelto 1 tab(s) orally Active 10 mg orally once a day [facility] 11/18/2016 [facility] furosemide 1 tab(s) orally Active 20 mg orally once a day [facility] 11/18/2016 [facility] lisinopril 1 tab(s) orally Active 5 mg orally once a day [facility] 10/28/2016 [facility] Humulin N 20 units subcutaneously Active human recombinant 100 units/mL subcutaneously Once daily [facility] 10/28/2016 [facility] Humulin N 20 units subcutaneously Active human recombinant 100 units/mL subcutaneously Once daily [facility] 10/28/2016 [facility] lisinopril 1 tab(s) orally Active 5 mg orally once a day [facility] 10/28/2016 [facility] Levemir 20 units subcutaneously Active 100 units/mL subcutaneously Once daily [facility] 09/30/2016 [facility] Januvia 1 tab(s) orally Active 100 mg orally once a day [facility] 09/02/2016 [facility] Ultram 1 tab(s) orally Active 50 mg orally every 6 hours PRN [facility] 07/15/2016 [facility] Ultram 1 tab(s) orally Active 50 mg orally every 6 hours PRN [facility] 07/15/2016 [facility] furosemide 1 tab(s) orally Active 40 mg orally once a day [facility] 06/24/2016 [facility] furosemide 1 tab(s) orally Active 40 mg orally once a day [facility] 06/24/2016 [facility] Plavix 1 tab(s) orally No Longer Active 75 mg orally once a day [facility] 06/24/2016 [facility] pantoprazole 1 tab(s) orally Active 40 mg orally once a day [facility] 05/27/2016 [facility] pantoprazole 1 tab(s) orally Active 40 mg orally once a day [facility] 05/27/2016 [facility] furosemide 1 tab(s) orally No Longer Active 20 mg orally once a day [facility] 05/27/2016 [facility] Eliquis 1 tab(s) orally Active 2.5 mg orally 2 times a day [facility] 04/24/2016 [facility] levetiracetam 1 tab(s) orally Active 500 mg orally 2 times a day [facility] 09/09/2014 [facility] levetiracetam 1 tab(s) orally Active 500 mg orally 2 times a day [facility] 09/09/2014 [facility] levothyroxine 1 tab(s) orally Active 25 mcg (0.025 mg) orally once a day [facility] 05/03/2014 [facility] levothyroxine 1 tab(s) orally Active 25 mcg (0.025 mg) orally once a day [facility] 05/03/2014 [facility] Eliquis 1 tab(s) orally Active 2.5 mg orally 2 times a day [facility] MiraLax 17 g orally Active - orally once a day [facility] ferrous fumarate 1 tab(s) orally Active 325 mg orally once a day [facility] glipizide 1 tab(s) orally Active 10 mg orally Twice a day [facility] atorvastatin 1 tab(s) orally Active 40 mg orally once a day (at bedtime) [facility] Co Q-10 1 cap(s) orally Active 100 mg orally once a day [facility] Lyrica 1 cap(s) orally Active 25 mg orally once a day [facility] Savaysa 1 tab(s) orally Active 30 mg orally once a day [facility] gabapentin 1 cap(s) orally Active 300 mg orally Once daily [facility] Januvia 1 tab(s) orally Active 50 mg orally once a day [facility] furosemide 1 tab(s) orally Active 20 mg orally once a day [facility] Coumadin 1 tab(s) orally Active 5 mg orally once a day [facility] atorvastatin 1 tab(s) orally Active 40 mg orally once a day (at bedtime) [facility] gabapentin 1 cap(s) orally Active 300 mg orally Once daily [facility] Eliquis 1 tab(s) orally Active 2.5 mg orally 2 times a day [facility] ferrous fumarate 1 tab(s) orally Active 325 mg orally once a day [facility] Lyrica 1 cap(s) orally Active 25 mg orally once a day [facility] Co Q-10 1 cap(s) orally Active 100 mg orally once a day [facility] furosemide 1 tab(s) orally Active 40 mg orally once a day [facility] glipizide 1 tab(s) orally Active 10 mg orally Twice a day [facility] MiraLax 17 g orally Active - orally once a day [facility] Coumadin 1 tab(s) orally Active 6 mg orally once a day [facility] Lyrica TAKE 1 CAPSULE BY MOUTH ONCE DAILY NA Active 25MG [facility] Humulin N INJECT 20 UNITS SUBCUTANEOUSLY ONCE DAILY NA Active 100U/ML [facility] levetiracetam 1 tab(s) orally Active 500 mg orally 2 times a day [facility] lisinopril 1 tab(s) orally Active 10 mg orally once a day [facility] Xarelto 1 tab(s) orally Active 15 mg orally once a day (in the evening) [facility] Fish Oil 1 cap(s) orally Active 1200 mg orally Once daily [facility] spironolactone 1 tab(s) orally Active 25 mg orally Once daily [facility] Fish Oil 1 cap(s) orally Active 1200 mg orally Once daily [facility] levetiracetam TAKE 1 TABLET BY MOUTH TWICE DAILY orally Active 750 mg orally 2 times a day [facility] triamterene/hctz 1 tab(s) orally Active 25 mg-37.5 mg orally once a day [facility] levetiracetam 1 tab(s) orally Active 750 mg orally 2 times a day [facility] Coumadin 1 tab(s) orally Active 4 mg orally once a day [facility] atorvastatin 1 tab(s) orally Active 40 mg orally once a day [facility] lisinopril 1 tab(s) orally Active 2.5 mg orally once a day [facility] triamterene/hctz TAKE 1 TABLET BY MOUTH ONCE DAILY NA Active 25 mg-37.5 mg [facility] Coumadin 1 tab(s) orally Active 6 mg orally once a day [facility] furosemide 1 tab(s) orally No Longer Active 40 mg orally once a day [facility] Plavix 1 tab(s) orally No Longer Active 75 mg orally once a day [facility] Amlodipine Besylate 5 Mg Tablet Daily Active [facility] Atorvastatin Calcium 20 Mg Tablet Daily Active [facility] Clopidogrel Bisulfate (Plavix) 75 Mg Tablet Daily Active [facility] Doxycycline Hyclate 100 Mg Capsule Twice A Day Active [facility] Furosemide (Lasix) 40 Mg Tablet Twice A Day Active Per MD Hernandez, continue if creatine lab WNL, hold if creatine elevated above 1.5 [facility] Glyburide/Metformin Hcl (Glucovance 5-500 Mg Tablet) 1 Each Tablet Twice A Day Active [facility] Lisinopril 10 Mg Tablet Daily Active [facility] Metoprolol Tartrate 50 Mg Tablet Twice A Day Active [facility] Sulfamethoxazole/Trimethoprim (Bactrim Ds Tablet) 1 Each Tablet Twice A Day Active [facility] Carvedilol (Coreg) 3.125 Mg Tab Twice A Day Active [facility] Levetiracetam 500 Mg Tablet Twice A Day Active [facility] [place]-3 Fatty Acids/Fish Oil ([place] 3 Fish Oil Softgel) 1 Each Capsule. Daily Active [facility] Pantoprazole Sodium (Protonix) 40 Mg Tablet. Daily@1700 Active [facility] Pregabalin (Lyrica) 25 Mg Cap Daily Active [facility] Triamterene/Hctz (Triamterene-Hctz 37.5-25 Mg Tb) 1 Ea Tab Active [facility] Ubidecarenone (Coq-10) 100 Mg Capsule Daily Active [facility] Allergies, Adverse Reactions, Alerts Substance Category Reaction Severity Reaction type Status Date Reported Comments Source Gabapentin 06/22/2018 [facility]: [facility] [place] Penicillins 06/22/2018 [facility]F: [facility] [place] penicillin Adverse Reaction hives Adverse Reaction Active 08/26/2018 [facility] PENICILLIN Unknown Allergy to Substance Active 10/11/2018 [facility] Metformin DIZZY Mild Propensity to adverse reactions Active 12/04/2018 [facility] Penicillin "SICK" Mild Propensity to adverse reactions Active 12/04/2018 [facility] Immunizations Immunization Date Given Site Status Last Updated Comments Source INFL[facility] MEDICARE 04/06/2018 completed [facility] MEDICARE 06/18/2017 completed [facility] MEDICARE 04/24/2016 completed [facility] Results Order Name Results Value Reference Range Date Interpretation Comments Source Capillary blood glucose measurement by glucometer (mass/volume) 184 70 - 120 12/13/2018 [facility] Blood leukocytes automated count (number/volume) 9.57 4.8 - 10.8 12/13/2018 [facility] Blood erythrocytes automated count (number/volume) 4.08 3.6 - 5.1 12/13/2018 [facility] Blood hemoglobin measurement (moles/volume) 11.9 12.0 - 16.0 12/13/2018 [facility] Automated blood hematocrit (volume fraction) 36.6 34.2 - 44.1 12/13/2018 [facility] Automated erythrocyte mean corpuscular volume 89.7 81 - 99 12/13/2018 [facility] Automated erythrocyte mean corpuscular hemoglobin (mass per erythrocyte) 29.2 28 - 32 12/13/2018 [facility] Automated erythrocyte mean corpuscular hemoglobin concentration measurement (mass/volume) 32.5 31 - 35 12/13/2018 [facility] RDW BldCo-Rto 13.7 11.7 - 14.4 12/13/2018 [facility] Automated blood platelet count (count/volume) 227 140 - 360 12/13/2018 [facility] Automated blood segmented neutrophil count as percentage of total leukocytes 69.1 38.7 - 80.0 12/13/2018 [facility] Automated blood lymphocyte count as percentage ot total leukocytes 18.7 18.0 - 39.1 12/13/2018 [facility] Automated blood monocyte count as percentage of total leukocytes 10.0 4.4 - 11.3 12/13/2018 [facility] Automated blood eosinophil count as percentage of total leukocytes 1.0 0.0 - 6.0 12/13/2018 [facility] Automated blood basophil count as percentage of total leukocytes 0.3 0.0 - 1.0 12/13/2018 [facility] IM GRANULOCYTES % 0.9 0.0 - 1.0 12/13/2018 [facility] Automated blood neutrophil count 6.6 2.1 - 6.9 12/13/2018 [facility] Blood lymphocytes count (number/volume) 1.8 1.0 - 3.2 12/13/2018 [facility] Blood monocytes automated count (number/volume) 1.0 0.2 - 0.8 12/13/2018 [facility] Automated blood eosinophil count 0.1 0.0 - 0.4 12/13/2018 [facility] Automated blood basophil count (count/volume) 0.0 0.0 - 0.1 12/13/2018 [facility] Absolute Immature Granulocyte (auto 0.09 0 - 0.1 12/13/2018 [facility] Serum or plasma sodium measurement (moles/volume) 135 136 - 145 12/13/2018 [facility] Serum or plasma potassium measurement (moles/volume) 4.0 3.5 - 5.1 12/13/2018 [facility] Serum or plasma chloride measurement (moles/volume) 103 98 - 107 12/13/2018 [facility] Serum or plasma carbon dioxide, total measurement (moles/volume) 24 22 - 29 12/13/2018 [facility] Serum or plasma anion gap 12.0 8 - 16 12/13/2018 [facility] Serum or plasma urea nitrogen measurement (mass/volume) 19 7 - 26 12/13/2018 [facility] Serum or plasma creatinine measurement (mass/volume) 0.85 0.57 - 1.11 12/13/2018 [facility] Serum or plasma urea nitrogen/creatinine mass ratio 22 6 - 25 12/13/2018 [facility] Estimated glomerular filtration rate (GFR) determination > 60 60 12/13/2018 [facility] Glucose measurement 215 74 - 118 12/13/2018 [facility] [facility] Serum or plasma calcium measurement (mass/volume) 8.4 8.4 - 10.2 12/13/2018 [facility] Hemoglobin A1c Percent 7.9 4.0 - 7.0 12/12/2018 [facility] Serum or plasma magnesium measurement (mass/volume) 2.1 1.3 - 2.1 12/12/2018 [facility] Serum or plasma triglyceride measurement (mass/volume) 162 0 - 149 12/12/2018 [facility] Serum or plasma cholesterol measurement (mass/volume) 128 0 - 199 12/12/2018 [facility] Serum or plasma cholesterol in LDL measurement (mass/volume) 66 60 - 130 12/12/2018 [facility] Serum or plasma cholesterol in HDL measurement (mass/volume) 30 40 - 60 12/12/2018 [facility] Serum or plasma total cholesterol/cholesterol in HDL mass ratio 4.3 3.0 - 3.6 12/12/2018 [facility] BNP Bld-mCnc 65.9 0 - 100 12/12/2018 [facility] Serum or plasma creatine kinase measurement (enzymatic activity/volume) 46 29 - 168 12/12/2018 [facility] Serum or plasma creatine kinase MB measurement (mass/volume) 1.00 0 - 5.0 12/12/2018 [facility] Troponin I measurement by highly sensitive enzyme immunoassay 0.015 0 - 0.300 12/12/2018 [facility] Serum or plasma thyroxine (T4) free measurement (mass/volume) 1.06 0.8 - 1.8 12/12/2018 [facility] Serum or plasma thyrotropin measurement by detection limit <=0.005 miu/l (units/volume) 0.113 0.350 - 4.940 12/12/2018 [facility] Urine color determination YELLOW YELLOW 12/11/2018 [facility] Urine clarity CLEAR CLEAR 12/11/2018 [facility] Specific gravity of Urine by Test strip <=1.005 1.010 - 1.025 12/11/2018 [facility] Urine pH measurement by automated test strip 6.5 5 - 7 12/11/2018 [facility] Urine leukocyte esterase detection by automated test strip NEGATIVE NEGATIVE 12/11/2018 [facility] Urine nitrite detection by automated test strip NEGATIVE NEGATIVE 12/11/2018 [facility] Urine protein detection by automated test strip NEGATIVE NEGATIVE 12/11/2018 [facility] Urine glucose detection by automated test strip NEGATIVE NEGATIVE 12/11/2018 [facility] Urine ketones detection by automated test strip NEGATIVE NEGATIVE 12/11/2018 [facility] Urine urobilinogen measurement by test strip (mass/volume) 0.2 0.2 - 1 12/11/2018 [facility] Urine total bilirubin detection NEGATIVE NEGATIVE 12/11/2018 [facility] Urine erythrocytes detection NEGATIVE NEGATIVE 12/11/2018 [facility] Automated urine sediment leukocyte count by microscopy (number/high power field) NONE 0 - 5 12/11/2018 [facility] Erythrocytes detection in urine sediment by light microscopy NONE 0 - 5 12/11/2018 [facility] Bacteria detection in urine sediment by light microscopy FEW NONE 12/11/2018 [facility] Epithelial cells detection in urine sediment by light microscopy NONE NONE 12/11/2018 [facility] Hyaline casts detection in urine sediment by light microscopy 2-5 0 - 1 12/11/2018 [facility] Prothrombin time (PT) in platelet poor plasma by coagulation assay 23.1 11.9 - 14.5 12/11/2018 [facility] INR in Platelet poor plasma by Coagulation assay 1.97 12/11/2018 [facility] Activated partial thromboplastin time (aPTT) in platelet poor plasma bycoagulation assay 34.5 23.8 - 35.5 12/11/2018 [facility] Serum or plasma total bilirubin measurement (mass/volume) 0.6 0.2 - 1.2 12/11/2018 [facility] Aspartate Amino Transf (AST/SGOT) 15 5 - 34 12/11/2018 [facility] Serum or plasma alanine aminotransferase measurement (enzymatic activity/volume) 21 0 - 55 12/11/2018 [facility] Serum or plasma protein measurement (mass/volume) 7.0 6.5 - 8.1 12/11/2018 [facility] Serum or plasma albumin measurement (mass/volume) 3.7 3.5 - 5.0 12/11/2018 [facility] Plasma globulin measurement (mass/volume) 3.3 2.3 - 3.5 12/11/2018 [facility] Serum or plasma albumin/globulin mass ratio 1.1 0.8 - 2.0 12/11/2018 [facility] Serum or plasma alkaline phosphatase measurement (enzymatic activity/volume) 77 40 - 150 12/11/2018 [facility] Urine color determination YELLOW YELLOW 12/04/2018 [facility] Urine clarity CLEAR CLEAR 12/04/2018 [facility] Specific gravity of Urine by Test strip 1.010 1.010 - 1.025 12/04/2018 [facility] Urine pH measurement by automated test strip 6 5 - 7 12/04/2018 [facility] Urine leukocyte esterase detection by automated test strip TRACE NEGATIVE 12/04/2018 [facility] Urine nitrite detection by automated test strip NEGATIVE NEGATIVE 12/04/2018 [facility] Urine protein detection by automated test strip NEGATIVE NEGATIVE 12/04/2018 [facility] Urine glucose detection by automated test strip 3+ NEGATIVE 12/04/2018 [facility] Urine ketones detection by automated test strip NEGATIVE NEGATIVE 12/04/2018 [facility] Urine urobilinogen measurement by test strip (mass/volume) 0.2 0.2 - 1 12/04/2018 [facility] Urine total bilirubin detection NEGATIVE NEGATIVE 12/04/2018 [facility] Urine erythrocytes detection NEGATIVE NEGATIVE 12/04/2018 [facility] Automated urine sediment leukocyte count by microscopy (number/high power field) NONE 0 - 5 12/04/2018 [facility] Erythrocytes detection in urine sediment by light microscopy NONE 0 - 5 12/04/2018 [facility] Bacteria detection in urine sediment by light microscopy NONE NONE 12/04/2018 [facility] Epithelial cells detection in urine sediment by light microscopy MODERATE NONE 12/04/2018 [facility] Hyaline casts detection in urine sediment by light microscopy 0-1 0 - 1 12/04/2018 [facility] Blood leukocytes automated count (number/volume) 6.74 4.8 - 10.8 12/04/2018 [facility] Blood erythrocytes automated count (number/volume) 3.56 3.6 - 5.1 12/04/2018 [facility] Blood hemoglobin measurement (moles/volume) 10.6 12.0 - 16.0 12/04/2018 [facility] Automated blood hematocrit (volume fraction) 31.9 34.2 - 44.1 12/04/2018 [facility] Automated erythrocyte mean corpuscular volume 89.6 81 - 99 12/04/2018 [facility] Automated erythrocyte mean corpuscular hemoglobin (mass per erythrocyte) 29.8 28 - 32 12/04/2018 [facility] Automated erythrocyte mean corpuscular hemoglobin concentration measurement (mass/volume) 33.2 31 - 35 12/04/2018 [facility] RDW BldCo-Rto 14.6 11.7 - 14.4 12/04/2018 [facility] Automated blood platelet count (count/volume) 223 140 - 360 12/04/2018 [facility] Automated blood segmented neutrophil count as percentage of total leukocytes 54.3 38.7 - 80.0 12/04/2018 [facility] Automated blood lymphocyte count as percentage ot total leukocytes 28.5 18.0 - 39.1 12/04/2018 [facility] Automated blood monocyte count as percentage of total leukocytes 11.3 4.4 - 11.3 12/04/2018 [facility] Automated blood eosinophil count as percentage of total leukocytes 4.5 0.0 - 6.0 12/04/2018 [facility] Automated blood basophil count as percentage of total leukocytes 0.7 0.0 - 1.0 12/04/2018 [facility] IM GRANULOCYTES % 0.7 0.0 - 1.0 12/04/2018 [facility] Automated blood neutrophil count 3.7 2.1 - 6.9 12/04/2018 [facility] Blood lymphocytes count (number/volume) 1.9 1.0 - 3.2 12/04/2018 [facility] Blood monocytes automated count (number/volume) 0.8 0.2 - 0.8 12/04/2018 [facility] Automated blood eosinophil count 0.3 0.0 - 0.4 12/04/2018 [facility] Automated blood basophil count (count/volume) 0.1 0.0 - 0.1 12/04/2018 [facility] Absolute Immature Granulocyte (auto 0.05 0 - 0.1 12/04/2018 [facility] Prothrombin time (PT) in platelet poor plasma by coagulation assay 22.8 11.9 - 14.5 12/04/2018 [facility] INR in Platelet poor plasma by Coagulation assay 1.94 12/04/2018 [facility] Activated partial thromboplastin time (aPTT) in platelet poor plasma bycoagulation assay 39.8 23.8 - 35.5 12/04/2018 [facility] Serum or plasma sodium measurement (moles/volume) 131 136 - 145 12/04/2018 [facility] Serum or plasma potassium measurement (moles/volume) 4.3 3.5 - 5.1 12/04/2018 [facility] Serum or plasma chloride measurement (moles/volume) 99 98 - 107 12/04/2018 [facility] Serum or plasma carbon dioxide, total measurement (moles/volume) 23 22 - 29 12/04/2018 [facility] Serum or plasma anion gap 13.3 8 - 16 12/04/2018 [facility] Serum or plasma urea nitrogen measurement (mass/volume) 18 7 - 26 12/04/2018 [facility] Serum or plasma creatinine measurement (mass/volume) 1.15 0.57 - 1.11 12/04/2018 [facility] Serum or plasma urea nitrogen/creatinine mass ratio 16 6 - 25 12/04/2018 [facility] Estimated glomerular filtration rate (GFR) determination 45 60 12/04/2018 [facility] Glucose measurement 351 74 - 118 12/04/2018 [facility] Serum or plasma calcium measurement (mass/volume) 8.7 8.4 - 10.2 12/04/2018 [facility] Serum or plasma total bilirubin measurement (mass/volume) 0.3 0.2 - 1.2 12/04/2018 [facility] Aspartate Amino Transf (AST/SGOT) 23 5 - 34 12/04/2018 [facility] Serum or plasma alanine aminotransferase measurement (enzymatic activity/volume) 31 0 - 55 12/04/2018 [facility] Serum or plasma protein measurement (mass/volume) 6.4 6.5 - 8.1 12/04/2018 [facility] Serum or plasma albumin measurement (mass/volume) 3.1 3.5 - 5.0 12/04/2018 [facility] Plasma globulin measurement (mass/volume) 3.3 2.3 - 3.5 12/04/2018 [facility] Serum or plasma albumin/globulin mass ratio 0.9 0.8 - 2.0 12/04/2018 [facility] BNP Bld-mCnc 97.3 0 - 100 12/04/2018 [facility] Serum or plasma creatine kinase MB measurement (mass/volume) 2.40 0 - 5.0 12/04/2018 [facility] Troponin I measurement by highly sensitive enzyme immunoassay < 0.001 0 - 0.300 12/04/2018 [facility] Serum or plasma alkaline phosphatase measurement (enzymatic activity/volume) 71 40 - 150 10/11/2018 [facility] Serum or plasma creatine kinase measurement (enzymatic activity/volume) 117 29 - 168 10/11/2018 [facility] Blood hemoglobin measurement (moles/volume) 11.9 12.0 - 16.0 10/11/2018 [facility] Automated blood hematocrit (volume fraction) 35.0 34.2 - 44.1 10/11/2018 [facility] Automated erythrocyte mean corpuscular volume 83.3 81 - 99 10/11/2018 [facility] Automated erythrocyte mean corpuscular hemoglobin (mass per erythrocyte) 28.3 28 - 32 10/11/2018 [facility] Automated erythrocyte mean corpuscular hemoglobin concentration measurement (mass/volume) 34.0 31 - 35 10/11/2018 [facility] RDW BldCo-Rto 16.9 11.7 - 14.4 10/11/2018 [facility] Automated blood platelet count (count/volume) 233 140 - 360 10/11/2018 [facility] Automated blood segmented neutrophil count as percentage of total leukocytes 55.8 38.7 - 80.0 10/11/2018 [facility] Automated blood lymphocyte count as percentage ot total leukocytes 30.0 18.0 - 39.1 10/11/2018 [facility] Automated blood monocyte count as percentage of total leukocytes 10.5 4.4 - 11.3 10/11/2018 [facility] Automated blood eosinophil count as percentage of total leukocytes 2.5 0.0 - 6.0 10/11/2018 [facility] Automated blood basophil count as percentage of total leukocytes 0.6 0.0 - 1.0 10/11/2018 [facility] IM GRANULOCYTES % 0.6 0.0 - 1.0 10/11/2018 [facility] Automated blood neutrophil count 4.3 2.1 - 6.9 10/11/2018 [facility] Blood lymphocytes count (number/volume) 2.3 1.0 - 3.2 10/11/2018 [facility] Blood monocytes automated count (number/volume) 0.8 0.2 - 0.8 10/11/2018 [facility] Automated blood eosinophil count 0.2 0.0 - 0.4 10/11/2018 [facility] Automated blood basophil count (count/volume) 0.1 0.0 - 0.1 10/11/2018 [facility] Absolute Immature Granulocyte (auto 0.05 0 - 0.1 10/11/2018 [facility] Urine color determination YELLOW YELLOW 10/11/2018 [facility] Urine clarity HAZY CLEAR 10/11/2018 [facility] Specific gravity of Urine by Test strip 1.015 1.010 - 1.025 10/11/2018 [facility] Urine pH measurement by automated test strip 6 5 - 7 10/11/2018 [facility] Urine leukocyte esterase detection by dipstick 1+ NEGATIVE 10/11/2018 [facility] Urine nitrite detection NEGATIVE NEGATIVE 10/11/2018 [facility] Urine protein measurement by test strip (mass/volume) NEGATIVE NEGATIVE 10/11/2018 [facility] Urine glucose detection NEGATIVE NEGATIVE 10/11/2018 [facility] Urine ketones detection by automated test strip NEGATIVE NEGATIVE 10/11/2018 [facility] Urine urobilinogen measurement by test strip (mass/volume) 0.2 0.2 - 1 10/11/2018 [facility] Urine total bilirubin measurement (mass/volume) NEGATIVE NEGATIVE 10/11/2018 [facility] Urine erythrocytes detection NEGATIVE NEGATIVE 10/11/2018 [facility] Automated urine sediment leukocyte count by microscopy (number/high power field) 0-5 0 - 5 10/11/2018 [facility] Erythrocytes detection in urine sediment by light microscopy 0-5 0 - 5 10/11/2018 [facility] Bacteria detection in urine sediment by light microscopy FEW NONE 10/11/2018 [facility] Epithelial cells detection in urine sediment by light microscopy MODERATE NONE 10/11/2018 [facility] Serum or plasma sodium measurement (moles/volume) 131 136 - 145 10/11/2018 [facility] Serum or plasma potassium measurement (moles/volume) 4.2 3.5 - 5.1 10/11/2018 [facility] Serum or plasma chloride measurement (moles/volume) 96 98 - 107 10/11/2018 [facility] Serum or plasma carbon dioxide, total measurement (moles/volume) 24 22 - 29 10/11/2018 [facility] Serum or plasma anion gap 15.2 8 - 16 10/11/2018 [facility] Serum or plasma urea nitrogen measurement (mass/volume) 32 7 - 26 10/11/2018 [facility] Serum or plasma creatinine measurement (mass/volume) 1.26 0.57 - 1.11 10/11/2018 [facility] Serum or plasma urea nitrogen/creatinine mass ratio 25 6 - 25 10/11/2018 [facility] Estimated glomerular filtration rate (GFR) determination 41 60 10/11/2018 [facility] Glucose measurement 325 74 - 118 10/11/2018 [facility] Serum or plasma calcium measurement (mass/volume) 9.0 8.4 - 10.2 10/11/2018 [facility] Serum or plasma total bilirubin measurement (mass/volume) 0.7 0.2 - 1.2 10/11/2018 [facility] Aspartate Amino Transf (AST/SGOT) 23 5 - 34 10/11/2018 [facility] Serum or plasma alanine aminotransferase measurement (enzymatic activity/volume) 27 0 - 55 10/11/2018 [facility] Serum or plasma protein measurement (mass/volume) 6.8 6.5 - 8.1 10/11/2018 [facility] Serum or plasma albumin measurement (mass/volume) 3.2 3.5 - 5.0 10/11/2018 [facility] Plasma globulin measurement (mass/volume) 3.6 2.3 - 3.5 10/11/2018 [facility] Serum or plasma albumin/globulin mass ratio 0.9 0.8 - 2.0 10/11/2018 [facility] Serum or plasma alkaline phosphatase measurement (enzymatic activity/volume) 71 40 - 150 10/11/2018 [facility] Serum or plasma creatine kinase measurement (enzymatic activity/volume) 117 29 - 168 10/11/2018 [facility] Serum or plasma creatine kinase MB measurement (mass/volume) 2.80 0 - 5.0 10/11/2018 [facility] Troponin I measurement by highly sensitive enzyme immunoassay < 0.001 0 - 0.300 10/11/2018 [facility] Blood sugar Blood sugar 172 07/11/2018 [facility]: [facility] Blood sugar Blood sugar 172 07/11/2018 [facility]: [facility] Blood sugar Blood sugar 269 07/11/2018 [facility]: [facility] Blood sugar Blood sugar 170 07/10/2018 [facility]: [facility] Blood sugar Blood sugar 204 07/10/2018 [facility]: [facility] Blood sugar Blood sugar 183 07/10/2018 [facility]: [facility] Blood sugar Blood sugar 183 07/10/2018 [facility]: [facility] Blood sugar Blood sugar 168 07/10/2018 [facility]: [facility] [facility] Blood sugar Blood sugar 160 07/09/2018 [facility]: [facility] [facility] Blood sugar Blood sugar 167 07/09/2018 [facility]: [facility] [facility] Blood sugar Blood sugar 137 07/09/2018 [facility]: [facility] [place] [facility] Blood sugar Blood sugar 137 07/09/2018 [facility]: [facility] [facility] Blood sugar Blood sugar 183 07/09/2018 [facility]: [facility] [facility] Blood sugar Blood sugar 290 07/08/2018 [facility]: [facility] [facility] Blood sugar Blood sugar 175 07/08/2018 [facility]: [facility] [facility] Blood sugar Blood sugar 139 07/08/2018 [facility]: [facility] [facility] Blood sugar Blood sugar 215 07/08/2018 [facility]: [facility] [facility] Blood sugar Blood sugar 192 07/07/2018 [facility]: [facility] [place] [facility] Blood sugar Blood sugar 148 07/07/2018 [facility]: [facility] [place] [facility] Blood sugar Blood sugar 119 07/07/2018 [facility]: [facility] [place] [facility] Blood sugar Blood sugar 119 07/07/2018 [facility]: [facility] [place] [facility] Blood sugar Blood sugar 251 07/07/2018 [facility]: [facility] [place] [facility] Blood sugar Blood sugar 212 07/06/2018 [facility]: [facility] [place] [facility] Blood sugar Blood sugar 224 07/06/2018 [facility]: [facility] [place] [facility] Blood sugar Blood sugar 129 07/06/2018 [facility]: [facility] Blood sugar Blood sugar 129 07/06/2018 [facility]: [facility] [facility] Blood sugar Blood sugar 205 07/06/2018 [facility]: [facility] [facility] Blood sugar Blood sugar 215 07/05/2018 [facility]: [facility] [facility] Blood sugar Blood sugar 198 07/05/2018 [facility]: [facility] [facility] Blood sugar Blood sugar 163 07/05/2018 [facility]: [facility] [place] [facility] Blood sugar Blood sugar 163 07/05/2018 [facility]: [facility] [place] [facility] Blood sugar Blood sugar 218 07/05/2018 [facility]: [facility] [place] [facility] Blood sugar Blood sugar 318 07/04/2018 [facility]: [facility] [facility] Blood sugar Blood sugar 192 07/04/2018 [facility]: [facility] Blood sugar Blood sugar 175 07/04/2018 [facility]: [facility] Blood sugar Blood sugar 304 07/04/2018 [facility]: [facility] Blood sugar Blood sugar 134 07/03/2018 [facility]: [facility] Blood sugar Blood sugar 296 07/03/2018 [facility]: [facility] Blood sugar Blood sugar 177 07/03/2018 [facility]: [facility] [facility] Blood sugar Blood sugar 177 07/03/2018 [facility]: [facility] [place] [facility] Blood sugar Blood sugar 174 07/03/2018 [facility]: [facility] [facility] Blood sugar Blood sugar 270 07/02/2018 [facility]: [facility] [place] [facility] Blood sugar Blood sugar 150 07/02/2018 [facility]: [facility] [place] [facility] Blood sugar Blood sugar 119 07/02/2018 [facility]: [facility] [place] [facility] Blood sugar Blood sugar 119 07/02/2018 [facility]: [facility] [place] [facility] Blood sugar Blood sugar 253 07/02/2018 [facility]: [facility] [place] [facility] Blood sugar Blood sugar 314 07/01/2018 [facility]: [facility] [place] [facility] Blood sugar Blood sugar 216 07/01/2018 [facility]: [facility] [place] [facility] Blood sugar Blood sugar 226 07/01/2018 [facility]: [facility] [place] [facility] Blood sugar Blood sugar 226 07/01/2018 [facility]: [facility] [place] [facility] Blood sugar Blood sugar 202 07/01/2018 [facility]: [facility] [place] [facility] Blood sugar Blood sugar 325 06/30/2018 [facility]: [facility] [place] [facility] Blood sugar Blood sugar 289 06/30/2018 [facility]: [facility] [place] [facility] Blood sugar Blood sugar 219 06/30/2018 [facility]: [facility] [place] [facility] Blood sugar Blood sugar 219 06/30/2018 [facility]: [facility] [place] [facility] Blood sugar Blood sugar 217 06/30/2018 [facility]: [facility] [place] [facility] Blood sugar Blood sugar 240 06/29/2018 [facility]: [facility] [place] [facility] Blood sugar Blood sugar 174 06/29/2018 [facility]: [facility] Blood sugar Blood sugar 218 06/29/2018 [facility]: [facility] [place] [facility] Blood sugar Blood sugar 218 06/29/2018 [facility]: [facility] [facility] Blood sugar Blood sugar 249 06/29/2018 [facility]: [facility] Blood sugar Blood sugar 224 06/28/2018 [facility]: [facility] [place] [facility] Blood sugar Blood sugar 275 06/28/2018 [facility]: [facility] [place] [facility] Blood sugar Blood sugar 190 06/28/2018 [facility]: [facility] [place] [facility] Blood sugar Blood sugar 205 06/28/2018 [facility]: [facility] [facility] Blood sugar Blood sugar 212 06/27/2018 [facility]: [facility] Blood sugar Blood sugar 238 06/27/2018 [facility]: [facility] Blood sugar Blood sugar 165 06/27/2018 [facility]: [facility] Blood sugar Blood sugar 165 06/27/2018 [facility]: [facility] [place] [facility] Blood sugar Blood sugar 262 06/27/2018 [facility]: [facility] Blood sugar Blood sugar 232 06/26/2018 [facility]: [facility] Blood sugar Blood sugar 231 06/26/2018 [facility]: [facility] [place] [facility] Blood sugar Blood sugar 192 06/26/2018 [facility]: [facility] [place] [facility] Blood sugar Blood sugar 192 06/26/2018 [facility]: [facility] [place] [facility] Blood sugar Blood sugar 243 06/25/2018 [facility]: [facility] [place] [facility] Blood sugar Blood sugar 172 06/25/2018 [facility]: [facility] [place] [facility] Blood sugar Blood sugar 188 06/25/2018 [facility]: [facility] [place] [facility] Blood sugar Blood sugar 188 06/25/2018 SN[facility]: [facility] Blood sugar Blood sugar 240 06/25/2018 SNF: [facility] Blood sugar Blood sugar 192 06/25/2018 SNF: [facility] Blood sugar Blood sugar 285 06/24/2018 SN[facility]: [facility] Blood sugar Blood sugar 182 06/24/2018 SNF: [facility] Blood sugar Blood sugar 182 06/24/2018 SN[facility]: [facility] Blood sugar Blood sugar 238 06/24/2018 SN[facility]: [facility] Blood sugar Blood sugar 313 06/23/2018 SNF: [facility] Blood sugar Blood sugar 300 06/23/2018 SNF: [facility] Blood sugar Blood sugar 198 06/23/2018 SNF: [facility] Blood sugar Blood sugar 212 06/23/2018 SNF: [facility] Pathology Reports No Data Provided for [...] Hg) 129 07/11/2018 SNF: [facility] Diastolic (mm Hg) 60 07/11/2018 SNF: [facility] Heart Rate 87 {beats}/min 07/11/2018 SNF: [facility] Systolic (mm Hg) 122 07/11/2018 SNF: [facility] Diastolic (mm Hg) 77 07/11/2018 SNF: [facility] Heart Rate 90 {beats}/min 07/11/2018 SNF: [facility] Systolic (mm Hg) 137 07/10/2018 SNF: [facility] Diastolic (mm Hg) 67 07/10/2018 SNF: [facility] Heart Rate 90 {beats}/min 07/10/2018 SN[facility]: [facility] Systolic (mm Hg) 131 07/10/2018 SN[facility]: [facility] Diastolic (mm Hg) 75 07/10/2018 SN[facility]: [facility] Heart Rate 75 {beats}/min 07/10/2018 SN[facility]: [facility] Systolic (mm Hg) 142 07/09/2018 SNF: [facility] Diastolic (mm Hg) 83 07/09/2018 SN[facility]: [facility] Heart Rate 88 {beats}/min 07/09/2018 SNF: [facility] Systolic (mm Hg) 115 07/09/2018 SNF: [facility] Diastolic (mm Hg) 60 07/09/2018 SN[facility]: [facility] Heart Rate 75 {beats}/min 07/09/2018 SN[facility]: [facility] Systolic (mm Hg) 126 07/08/2018 SNF: [facility] Diastolic (mm Hg) 67 07/08/2018 SNF: [facility] Heart Rate 80 {beats}/min 07/08/2018 SNF: [facility] Systolic (mm Hg) 105 07/07/2018 SNF: [facility] Diastolic (mm Hg) 63 07/07/2018 SNF: [facility] Heart Rate 78 {beats}/min 07/07/2018 SNF: [facility] Systolic (mm Hg) 126 07/06/2018 SNF: [facility] Diastolic (mm Hg) 74 07/06/2018 SNF: [facility] Heart Rate 81 {beats}/min 07/06/2018 SNF: [facility] Systolic (mm Hg) 129 07/06/2018 SNF: [facility] Diastolic (mm Hg) 68 07/06/2018 SNF: [facility] Heart Rate 84 {beats}/min 07/06/2018 SN[facility]: [facility] Systolic (mm Hg) 122 07/05/2018 SNF: [facility] Diastolic (mm Hg) 65 07/05/2018 SNF: [facility] Heart Rate 70 {beats}/min 07/05/2018 SN[facility]: [facility] Systolic (mm Hg) 129 07/05/2018 SNF: [facility] Diastolic (mm Hg) 62 07/05/2018 SNF: [facility] Heart Rate 78 {beats}/min 07/05/2018 SNF: [facility] Systolic (mm Hg) 118 07/04/2018 SNF: [facility] Diastolic (mm Hg) 89 07/04/2018 SNF: [facility] Heart Rate 71 {beats}/min 07/04/2018 SNF: [facility] Systolic (mm Hg) 132 07/03/2018 SNF: [facility] Diastolic (mm Hg) 73 07/03/2018 SNF: [facility] Heart Rate 84 {beats}/min 07/03/2018 SNF: [facility] Systolic (mm Hg) 126 07/02/2018 SNF: [facility] Diastolic (mm Hg) 68 07/02/2018 SNF: [facility] Heart Rate 71 {beats}/min 07/02/2018 SNF: [facility] Systolic (mm Hg) 122 07/02/2018 SNF: [facility] Diastolic (mm Hg) 60 07/02/2018 SNF: [facility] Heart Rate 73 {beats}/min 07/02/2018 SNF: [facility] Systolic (mm Hg) 124 07/01/2018 SNF: [facility] Diastolic (mm Hg) 74 07/01/2018 SNF: [facility] Heart Rate 81 {beats}/min 07/01/2018 SN[facility]: [facility] Systolic (mm Hg) 118 07/01/2018 SNF: [facility] Diastolic (mm Hg) 82 07/01/2018 SNF: [facility] Heart Rate 83 {beats}/min 07/01/2018 SN[facility]: [facility] Systolic (mm Hg) 115 06/30/2018 SNF: [facility] Diastolic (mm Hg) 81 06/30/2018 SN[facility]: [facility] Heart Rate 81 {beats}/min 06/30/2018 SNF: [facility] Systolic (mm Hg) 117 06/29/2018 SNF: [facility] Diastolic (mm Hg) 60 06/29/2018 SNF: [facility] Heart Rate 62 {beats}/min 06/29/2018 SNF: [facility] Systolic (mm Hg) 118 06/29/2018 SNF: [facility] Diastolic (mm Hg) 61 06/29/2018 SNF: [facility] Heart Rate 69 {beats}/min 06/29/2018 SNF: [facility] Systolic (mm Hg) 128 06/28/2018 SNF: [facility] Diastolic (mm Hg) 66 06/28/2018 SNF: [facility] Heart Rate 76 {beats}/min 06/28/2018 SNF: [facility] Systolic (mm Hg) 139 06/28/2018 SNF: [facility] Diastolic (mm Hg) 77 06/28/2018 SNF: [facility] Heart Rate 81 {beats}/min 06/28/2018 SN[facility]: [facility] Systolic (mm Hg) 128 06/27/2018 SNF: [facility] Diastolic (mm Hg) 71 06/27/2018 SNF: [facility] Heart Rate 84 {beats}/min 06/27/2018 SN[facility]: [facility] Systolic (mm Hg) 117 06/26/2018 SN[facility]: [facility] Diastolic (mm Hg) 65 06/26/2018 SNF: [facility] Heart Rate 80 {beats}/min 06/26/2018 SN[facility]: [facility] Systolic (mm Hg) 116 06/26/2018 SNF: [facility] Diastolic (mm Hg) 63 06/26/2018 SNF: [facility] Heart Rate 75 {beats}/min 06/26/2018 SN[facility]: [facility] Systolic (mm Hg) 116 06/25/2018 SNF: [facility] Diastolic (mm Hg) 88 06/25/2018 SN[facility]: [facility] Heart Rate 86 {beats}/min 06/25/2018 SN[facility]: [facility] Systolic (mm Hg) 124 06/25/2018 SN[facility]: [facility] Diastolic (mm Hg) 64 06/25/2018 SN[facility]: [facility] Heart Rate 61 {beats}/min 06/25/2018 SN[facility]: [facility] Systolic (mm Hg) 117 06/24/2018 SN[facility]: [facility] Diastolic (mm Hg) 62 06/24/2018 SN[facility]: [facility] Heart Rate 82 {beats}/min 06/24/2018 SN[facility]: [facility] Systolic (mm Hg) 156 06/24/2018 SN[facility]: [facility] Diastolic (mm Hg) 71 06/24/2018 SN[facility]: [facility] Heart Rate 77 {beats}/min 06/24/2018 SN[facility]: [facility] Weight 189.8 06/23/2018 SN[facility]: [facility] Height 63 06/23/2018 SN[facility]: [facility] Weight 198 06/10/2018 [facility] [...] [facility] [id number] 04/24/2016 04/24/2016 [facility] [id number] 04/24/2016 04/24/2016 [facility] [place] [id number] 04/24/2016 04/24/2016 [facility] [place] [id number] 04/24/2016 04/24/2016 [facility] [id number] 04/24/2016 04/24/2016 [facility] [place] [id number] 04/24/2016 04/24/2016 [facility] Unknown [id number] 04/29/2016 04/29/2016 [facility] Unknown [id number] 04/29/2016 04/29/2016 [facility] Unknown [id number] 04/29/2016 04/29/2016 [facility] Unknown [id number] 04/29/2016 04/29/2016 [facility] Unknown [id number] 04/29/2016 04/29/2016 [facility] & Sr [facility] Unknown [id number] 05/27/2016 05/27/2016 [facility] Unknown [id number] 05/27/2016 05/27/2016 [facility] [id number] 05/27/2016 05/27/2016 [facility] Unknown [id number] 05/27/2016 05/27/2016 [facility] Unknown [id number] 06/24/2016 06/24/2016 [facility] Unknown [id number] 06/24/2016 06/24/2016 [facility] Unknown [id number] 06/24/2016 06/24/2016 [facility] Message [id number] 07/15/2016 07/15/2016 [facility] Message [id number] 07/15/2016 07/15/2016 [facility] Unknown [id number] 08/12/2016 08/12/2016 [facility] Departed Emergency Room [id number] KENDALL LIU MD 10/11/2018 10/12/2018 [facility] Departed Emergency Room [id number] CLIFTON VARGAS MD 12/04/2018 12/04/2018 [facility] Discharged Inpatient (obs) [id number] COLIN ROSAS MD 12/11/2018 12/13/2018 [facility] Procedures Procedure Code Date Perfomer Comments Source Magnetic resonance imaging of brain without contrast [id number] 12/12/2018 [facility]IR[facility] Computed tomography of brain without radiopaque contrast [id number] 12/11/2018 [facility] X-ray of chest, single view [id number] 12/11/2018 [facility] X-ray of chest, two views [id number] 10/11/2018 [facility] Assessment and Plan No Data Provided for This Section Plan of Care Plan of Care Date Source Discharge Date 12/13/18 10:33am Disposition HOME, SELF-CARE Instructions/Education Provided Diabetes and Diet Prescriptions See Medication Section Additional Instructions/Education Diet as tolerated Activity as tolerated Follow up with Home health for speech therapy Prescriptions provided with discharge paperwork 12/13/2018 [facility] Discharge Date 12/04/18 10:40pm Disposition HOME, SELF-CARE Condition at Discharge Stable Instructions/Education Provided Osteoarthritis Chest Pain - Chest Wall Rash - Nonspecific Forms Provided Work/School Excuse Prescriptions See Medication Section Referrals HOLLY LORENZO DO Address: [address] [place] [address] [address] [place] [address] Additional Instructions/Education follow-up with your docotr as directed. 12/04/2018 [facility] Discharge Date 10/12/18 12:19am Disposition HOME, SELF-CARE Condition at Discharge Stable Instructions/Education Provided Abdominal Pain - Adult Forms Provided Work/School Excuse Prescriptions See Medication Section Referrals MERVAT BECERRA MD Address: [address] [place] [address] [address] [place] [address] Additional Instructions/Education Please f/u with the GI doctor provided for further work up 10/12/2018 [facility] Social History Social History Date Source Social History Problem Response Recorded Date/Time Onset Date Status Hx Psychiatric Problems No 06/09/2014 8:00pm Not Applicable Not Applicable Smoking Status Start Date Stop Date Never Smoker 12/13/2018 [facility] Smoking StatusStart DateEnd Date Unknown if ever smoked 07/11/2018 13:44:46 07/10/2018 SNF: [facility] ??? Social History ElementQualifiersDate Reported Tobacco Use: . Are you a: Never Smoker August 12, 2016 caffeine yes. caffeine Yes 2 cups per day August 12, 2016 alcohol no. alcohol No August 12, 2016 Children: . sons:1 daughters:1 August 12, 2016 Marital Status: . August 12, 2016 Exercise: no. Do you exercise? No August 12, 2016 08/12/2016 [facility] Family History Value Date Source QualifierDescriptionCommentDate [...] Comment not available Jun 24, 2016 07/02/2016 [facility] Advance Directives Order Name Results Value Date Source Advance Directives Advance Directives Directive Response Recorded Date/Time Does the patient have an advance directive? Yes 06/09/14 8:00pm If yes, is advance directive on file with [facility]? No 06/09/14 8:00pm If not on file with [facility] will patient provide a copy? Yes 06/09/14 8:00pm Do you have a Directive to Physician? Yes 12/11/18 2:19pm Do you have a Medical Power of Molding Plasterer? Yes 12/11/18 2:19pm Do you have an out of hospital Do Not Resuscitate Order? Yes 12/11/18 2:19pm Do you have any special needs we should be aware of? No 12/11/18 2:19pm Do you have a support person here with you today? Yes 12/11/18 2:19pm Did patient receive Notice of Privacy Practices? Yes 12/11/18 2:19pm Did patient receive patient rights and responsibilities? Yes 12/11/18 2:19pm 12/13/2018 [facility] Advance Directives Advance Directives Directive Response Recorded Date/Time Does the patient have an advance directive? Yes 06/09/14 8:00pm If yes, is advance directive on file with [facility]? No 06/09/14 8:00pm If not on file with [facility] will patient provide a copy? Yes 06/09/14 8:00pm Do you have a Directive to Physician? No 12/04/18 7:13pm Do you have a Medical Power of Molding Plasterer? No 12/04/18 7:13pm Do you have an out of hospital Do Not Resuscitate Order? No 12/04/18 7:13pm Do you have any special needs we should be aware of? No 12/04/18 7:13pm Do you have a support person here with you today? Yes 12/04/18 7:13pm Did patient receive Notice of Privacy Practices? Yes 12/04/18 7:13pm Did patient receive patient rights and responsibilities? Yes 12/04/18 7:13pm 12/04/2018 [facility] Advance Directives Advance Directives Directive Response Recorded Date/Time Does the patient have an advance directive? Yes 06/09/14 8:00pm If yes, is advance directive on file with [facility]? No 06/09/14 8:00pm If not on file with [facility] will patient provide a copy? Yes 06/09/14 8:00pm Do you have a Directive to Physician? No 10/11/18 7:28pm Do you have a Medical Power of Molding Plasterer? No 10/11/18 7:28pm Do you have an out of hospital Do Not Resuscitate Order? No 10/11/18 7:28pm Do you have any special needs we should be aware of? No 10/11/18 7:28pm Do you have a support person here with you today? Yes 10/11/18 7:28pm Did patient receive Notice of Privacy Practices? Yes 10/11/18 7:28pm Did patient receive patient rights and responsibilities? Yes 10/11/18 7:28pm 10/12/2018 [facility] Advance Directives Advance Directives Cardiopulmonary Resuscitation 07/11/2018 SNF: [facility] Functional Status No Data Provided for This Section
[2019-01-04] MEDS ORDERED: SODIUM CHLORIDE 0.9% 500ML 500 ML IV STA (15:28)
[2019-01-04 15:29] LABS: BASOPHILS # (AUTO) 0.1 (0.0-0.1); BASOPHILS % 0.7 % (0.0-1.0); EOSINOPHILS # (AUTO) 0.3 (0.0-0.4); EOSINOPHILS % 3.6 % (0.0-6.0); HEMATOCRIT 29.3 % (34.2-44.1); HEMOGLOBIN 10.1 g/dL (12.0-16.0); LYMPHOCYTES # (AUTO) 1.8 (1.0-3.2); LYMPHOCYTES % 24.9 % (18.0-39.1); MEAN CORPUSCULAR HEMOGLOBIN 30.4 pg (28-32); MEAN CORPUSCULAR HGB CONC 34.5 g/dL (31-35); MEAN CORPUSCULAR VOLUME 88.3 fL (81-99); MONOCYTES # (AUTO) 0.7 (0.2-0.8); MONOCYTES % 9.6 % (4.4-11.3); NEUTROPHILS # (AUTO) 4.3 (2.1-6.9); NEUTROPHILS % 60.2 % (38.7-80.0); PLATELET COUNT 281 x10e3/uL (140-360); RED BLOOD COUNT 3.32 x10e6/uL (3.6-5.1); RED CELL DISTRIBUTION WIDTH 13.2 % (11.7-14.4)
[2019-01-04] MEDS ORDERED: FAMOTIDINE 20 MG/2 ML VIAL IV NR (15:30)
[2019-01-04] MEDS ORDERED: ONDANSETRON HCL INJ 2MG/ML 2ML 2 MG/ML VIAL IV NR (15:30)
[2019-01-04 15:38] LABS: BILIRUBIN,URINE NEGATIVE (NEGATIVE); CLARITY,URINE CLEAR (CLEAR); COLOR,URINE YELLOW (YELLOW); KETONES,URINE NEGATIVE (NEGATIVE); LEUKOCYTE ESTERASE ,URINE NEGATIVE (NEGATIVE); NITRITE,URINE NEGATIVE (NEGATIVE); PROTEIN,URINE DIPSTICK NEGATIVE (NEGATIVE); URINE UROBILINOGEN 0.2 mg/dL (0.2 - 1)
[2019-01-04 15:51] LABS: EPITHELIAL CELLS,URINE MODERATE /LPF
[2019-01-04 15:51] LABS: ALBUMIN 3.4 g/dL (3.5-5.0); ANION GAP 15.4 mmol/L (8-16); CALCIUM 8.8 mg/dL (8.4-10.2); CREATININE, SERUM 1.32 mg/dL (0.57-1.11); POTASSIUM 4.4 mmol/L (3.5-5.1)
[2019-01-04] MEDS ORDERED: PREPARATION H C26 GM (16:41)
[2019-01-04] MEDS ORDERED: SENNA LAX8.6 MG PO (16:41)
[2019-01-04] MEDS ORDERED: HUMULIN N100 UNITS/ SQ (16:41)
[2019-01-04] MEDS ORDERED: ACETAMINOPHEN 325 MG TAB PO PRN (17:15)
[2019-01-04] MEDS ORDERED: DEXTROSE 50% SYRINGE 50 ML IV PRN (17:15)
[2019-01-04] MEDS ORDERED: DIPHENHYDRAMINE HCL INJ 50 MG/ML VIAL IV PRN (17:15)
--- OUTSIDE RECORDS SUMMARY | 2019-01-04 17:28 | XMS REPORT | Continuity of Care Document ---
Author Author [employer] Address Unknown Phone Unavailable Care Team Providers Care Telemedicine Physician Name Role Phone [employer] Information Exchange Unavailable Unavailable Problems Problem Status Onset Date Classification Date Reported Comments Source I63.9 CEREBRAL INFARCTION, UNSPECIFIED 06/22/2018 Diagnosis 07/11/2018 [facility]: [facility] [place] [facility] R41.82 ALTERED MENTAL STATUS, UNSPECIFIED 06/22/2018 Diagnosis 07/11/2018 [facility]: [facility] [place] [facility] I69.322 DYSARTHRIA FOLLOWING CEREBRAL INFARCTION 06/22/2018 Diagnosis 07/11/2018 [facility]: [facility] [place] [facility] I10 ESSENTIAL HYPERTENSION 06/22/2018 Diagnosis 07/11/2018 [facility]: [facility] [place] [facility] E11.9 TYPE 2 DIABETES MELLITUS WITHOUT COMPLICATIONS 06/22/2018 Diagnosis 07/11/2018 [facility]: [facility] [place] [facility] M62.81 MUSCLE WEAKNESS 06/22/2018 Diagnosis 07/11/2018 [facility]: [facility] [place] [facility] R26.89 OTHER ABNORMALITIES OF GAIT AND MOBILITY 06/22/2018 Diagnosis 07/11/2018 [facility]: [facility] [place] [facility] R27.9 UNSPECIFIED LACK OF COORDINATION 06/22/2018 Diagnosis 07/11/2018 [facility]: [facility] [place] [facility] R26.81 UNSTEADINESS ON FEET 06/22/2018 Diagnosis 07/11/2018 [facility]: [facility] [place] [facility] R48.2 APRAXIA 06/22/2018 Diagnosis 07/11/2018 [facility]: [facility] [place] [facility] 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 06/22/2018 Diagnosis 07/11/2018 [facility]: [facility] [place] [facility] I48.91 UNSPECIFIED ATRIAL FIBRILLATION 06/22/2018 Diagnosis 07/11/2018 [facility]: [facility] [place] [facility] E78.5 HYPERLIPIDEMIA, UNSPECIFIED 06/22/2018 Diagnosis 07/11/2018 [facility]: [facility] [place] [facility] I25.10 ATHEROSCLEROTIC HEART DISEASE OF [place] CORONARY ARTERY WITHOUT ANGINA PECTORIS 06/22/2018 Diagnosis 07/11/2018 [facility]: [facility] [place] [facility] R56.9 UNSPECIFIED CONVULSIONS 06/22/2018 Diagnosis 07/11/2018 [facility]: [facility] [place] CVA Active 06/09/2014 Problem 12/13/2018 [facility] Cardiac pacemaker in situ Active Problem 11/12/2018 [facility] Type 2 diabetes mellitus with other circulatory complication, without long-term current use of insulin Active Problem 11/12/2018 [facility] Coronary artery disease involving [place] coronary artery of [place] heart without angina pectoris Active Problem 11/12/2018 [facility] Cervical pain Active Problem 12/13/2018 [facility] Urinary tract infection Active Problem 12/13/2018 [facility] Medications Medication Details Route Status Patient Instructions Ordering Provider Order Date Source Aspirin (Aspirin Ec) 81 Mg Tablet. Every Morning Active Jairon 12/13/2018 [facility] Rivaroxaban (Xarelto) 10 Mg Tablet Daily At 1700 Active J[facility] 12/13/2018 [facility] Warfarin Sodium 3 Mg Tablet, 6 Mg Oral Daily Active 12/13/2018 [facility] Amlodipine Besylate 5 Mg Tablet, 5 Mg Oral Daily Active 12/12/2018 [facility] Clopidogrel Bisulfate (Plavix) 75 Mg Tablet, 75 Mg Oral Daily Active 12/12/2018 [facility] Doxycycline Hyclate 100 Mg Capsule, 100 Mg Oral Twice A Day Active 12/12/2018 [facility] Furosemide (Lasix) 40 Mg Tablet, 40 Mg Oral Twice A Day Active 12/12/2018 [facility] Glyburide/Metformin Hcl (Glucovance 5-500 Mg Tablet) 1 Each Tablet, 2 Tab Oral Twice A Day Active 12/12/2018 [facility] Metoprolol Tartrate 50 Mg Tablet, 50 Mg Oral Twice A Day Active 12/12/2018 [facility] Sulfamethoxazole/Trimethoprim (Bactrim Ds Tablet) 1 Each Tablet, 1 Tab Oral Twice A Day Active 12/12/2018 [facility] Furosemide (Lasix) 40 Mg Tablet Daily Active [facility] 12/04/2018 [facility] Prednisone 20 Mg Tab Daily Active [facility] 12/04/2018 [facility] spironolactone 1 tab(s) orally Active 25 mg [facility] senna 1 tab(s) orally Active 8.6 mg orally once a day (at bedtime) [facility]2018 [facility] Coumadin Tablet 5 MG Give 1 tablet by mouth one time a day for blood thinner Oral Active 07/10/2018 [facility] [place] [facility] Insulin NPH (Human) (Isophane) Suspension 100 UNIT/ML Inject 10 unit subcutaneously one time a day for dm with dinner Subcutaneous Active 07/01/2018 [facility]: [facility] [place] [facility] Coumadin Tablet 4 MG Give 1 tablet by mouth one time a day for blood thinner Oral Active 06/29/2018 [facility]: [facility] [place] [facility] Carvedilol Tablet 3.125 MG Give 1 tablet by mouth every 12 hours for CAD Hold for SBP < 110 or HR < 60 Oral Active 06/26/2018 [facility]: [facility] [place] [facility] Fish Oil Capsule 1000 MG Give 1 capsule by mouth one time a day for supplement Oral Active 06/24/2018 [facility]: [facility] [place] [facility] Lyrica Capsule 25 MG Give 1 capsule by mouth one time a day for neuropathy Oral Active 06/24/2018 [facility]: [facility] [place] [facility] Coumadin Tablet 3 MG Give 1 tablet via G-Tube one time a day for blood thinner Oral Active 06/23/2018 [facility]: [facility] [place] [facility] Keppra Tablet 750 MG Give 1 tablet by mouth two times a day for seizure Oral Active 06/23/2018 [facility]: [facility] [place] [facility] Lyrica Capsule 25 MG Give 1 capsule by mouth one time a day for CVA Oral Inactive 06/23/2018 SNF: [facility] FerrouSul Tablet 325 (65 Fe) MG Give 1 tablet by mouth one time a day for Anemia Oral Active 06/23/2018 [facility]: [facility] Fish Oil Capsule 1000 MG Give 1 capsule by mouth one time a day for CVA Oral Inactive 06/23/2018 SNF: [facility] Co Q-10 Capsule Give 1 capsule by mouth one time a day for Vitamin Oral Active 06/23/2018 SNF: [facility] Triamterene-HCTZ Capsule 37.5-25 MG Give 1 capsule by mouth one time a day for HTN Oral Active 06/23/2018 SNF: [facility] Furosemide Tablet 40 MG Give 1 tablet by mouth one time a day for HTN Oral Active 06/23/2018 [facility]: [facility] Keppra Tablet 750 MG Give 1 tablet by mouth two times a day for CVA Oral Inactive 06/23/2018 [facility]: [facility] HumuLIN N Suspension 100 UNIT/ML Inject 23 unit subcutaneously one time a day for Diabetes Subcutaneous Active 06/23/2018 [facility]: [facility] Carvedilol Tablet 3.125 MG Give 1 tablet by mouth every 12 hours for CAD Oral Active 06/23/2018 [facility]: [facility] Insulin Lispro Solution Cartridge 100 UNIT/ML Inject as per sliding scale: if 0 - 150=0; 151 - 200=2; 201 - 250=4; 251 - 300=6; 301 - 350=8; 351 - 400=10; 401 - 999=12 GIVE 12 UNIT AND NOTIFY , subcutaneously before meals and at bedtime for Diabetes Mellitus Subcutaneous Active 06/23/2018 [facility]: [facility] Atorvastatin Calcium Tablet 40 MG Give 1 tablet by mouth at bedtime for Cholesterol Oral Active 06/23/2018 SNF: [facility] Pantoprazole Sodium Tablet Delayed Release 40 MG Give 1 tablet by mouth every 48 hours for GERD Oral Active 06/23/2018 [facility]: [facility] lisinopril 1 tab(s) orally Active 2.5 mg orally once a day [facility] 06/10/2018 [facility] cephalexin 1 cap(s) orally Active 500 mg orally every 12 hours [facility] 06/10/2018 [facility] Lotrimin AF Cream 1 torsten applied topically Active 1% applied topically 2 times a day [facility] 06/10/2018 [facility] lisinopril 1 tab(s) orally Active 5 mg orally once a day [facility] 06/10/2018 [facility] fluconazole 1 tab(s) orally Active 150 mg orally once [facility] 06/10/2018 [facility] glipizide 1 tab(s) orally Active 10 mg orally Twice a day [facility] 01/10/2018 [facility] Colace 1 cap(s) orally Active sodium 100 mg orally Once daily [facility] 01/05/2018 [facility] Coreg 1 tab(s) orally Active 3.125 mg orally 2 times a day [facility] 09/17/2017 [facility] simethicone 1 tab(s) chewed Active 80 mg chewed 4 times a day (after meals and at bedtime) [facility] 09/17/2017 [facility] Warfarin Sodium Take one half orally Active 1 mg orally along with the 6 mg tablet once a day for [facility]THE 07/02/2017 [facility] furosemide 1 tab(s) orally Active 20 mg orally once a day [facility] 06/18/2017 [facility] gabapentin 1 cap(s) orally Active 300 mg orally Once at night [facility] 06/18/2017 [facility] Coumadin 1 tab(s) orally Active 6 mg orally once a day [facility] 04/17/2017 [facility] benzonatate 1 cap(s) orally Active 100 mg orally 3 times a day [facility] 03/12/2017 [facility] Warfarin Sodium 1 tab(s) orally Active 4 mg orally once a day [facility] 02/06/2017 [facility] hydrochlorothiazide-triamterene 1 cap(s) orally Active 25 mg- 37.5 mg orally once a day [facility] 01/15/2017 [facility] Coumadin 1 tab(s) orally Active 2 mg orally once a day [facility] 01/15/2017 [facility] Xarelto 1 tab(s) orally Active 10 mg orally once a day [facility] 11/18/2016 [facility] furosemide 1 tab(s) orally Active 20 mg orally once a day [facility] 11/18/2016 [facility] Xarelto 1 tab(s) orally Active 10 mg orally once a day [facility] 11/18/2016 [facility] furosemide 1 tab(s) orally Active 20 mg orally once a day [facility] 11/18/2016 [facility] lisinopril 1 tab(s) orally Active 5 mg orally once a day [facility] 10/28/2016 [facility] Humulin N 20 units subcutaneously Active human recombinant 100 units/mL subcutaneously Once daily [facility] 10/28/2016 [facility] Humulin N 20 units subcutaneously Active human recombinant 100 units/mL subcutaneously Once daily [facility]THE 10/28/2016 [facility] lisinopril 1 tab(s) orally Active 5 mg orally once a day [facility] 10/28/2016 [facility] Levemir 20 units subcutaneously Active 100 units/mL subcutaneously Once daily [facility]THE 09/30/2016 [facility] Januvia 1 tab(s) orally Active 100 mg orally once a day [facility] 09/02/2016 [facility] Ultram 1 tab(s) orally Active 50 mg orally every 6 hours PRN LATTHE 07/15/2016 [facility] Ultram 1 tab(s) orally Active 50 mg orally every 6 hours PRN LATTHE 07/15/2016 [facility] furosemide 1 tab(s) orally Active 40 mg orally once a day [facility]THE 06/24/2016 [facility] furosemide 1 tab(s) orally Active 40 mg orally once a day [facility] 06/24/2016 [facility] Plavix 1 tab(s) orally No Longer Active 75 mg orally once a day [facility]THE 06/24/2016 [facility] pantoprazole 1 tab(s) orally Active 40 mg orally once a day [facility] 05/27/2016 [facility] pantoprazole 1 tab(s) orally Active 40 mg orally once a day [facility] 05/27/2016 [facility] furosemide 1 tab(s) orally No Longer Active 20 mg orally once a day [facility] 05/27/2016 [facility] Eliquis 1 tab(s) orally Active 2.5 mg orally 2 times a day [facility]THE 04/24/2016 [facility] levetiracetam 1 tab(s) orally Active 500 mg orally 2 times a day [facility] 09/09/2014 [facility] levetiracetam 1 tab(s) orally Active 500 mg orally 2 times a day [facility] 09/09/2014 [facility] levothyroxine 1 tab(s) orally Active 25 mcg (0.025 mg) orally once a day [facility] 05/03/2014 [facility] levothyroxine 1 tab(s) orally Active 25 mcg (0.025 mg) orally once a day [facility] 05/03/2014 [facility] Eliquis 1 tab(s) orally Active 2.5 mg orally 2 times a day [facility] MiraLax 17 g orally Active - orally once a day [facility] ferrous fumarate 1 tab(s) orally Active 325 mg orally once a day [facility] glipizide 1 tab(s) orally Active 10 mg orally Twice a day [facility] atorvastatin 1 tab(s) orally Active 40 mg orally once a day (at bedtime) [facility] Co Q-10 1 cap(s) orally Active 100 mg orally once a day [facility] Lyrica 1 cap(s) orally Active 25 mg orally once a day [facility] Savaysa 1 tab(s) orally Active 30 mg orally once a day [facility] gabapentin 1 cap(s) orally Active 300 mg orally Once daily [facility] Januvia 1 tab(s) orally Active 50 mg orally once a day [facility] furosemide 1 tab(s) orally Active 20 mg orally once a day [facility] Coumadin 1 tab(s) orally Active 5 mg orally once a day [facility] atorvastatin 1 tab(s) orally Active 40 mg orally once a day (at bedtime) [facility] gabapentin 1 cap(s) orally Active 300 mg orally Once daily [facility] Eliquis 1 tab(s) orally Active 2.5 mg orally 2 times a day [facility] ferrous fumarate 1 tab(s) orally Active 325 mg orally once a day [facility] Lyrica 1 cap(s) orally Active 25 mg orally once a day [facility] Co Q-10 1 cap(s) orally Active 100 mg orally once a day [facility] furosemide 1 tab(s) orally Active 40 mg orally once a day [facility] glipizide 1 tab(s) orally Active 10 mg orally Twice a day [facility] MiraLax 17 g orally Active - orally once a day [facility] Coumadin 1 tab(s) orally Active 6 mg orally once a day [facility] Lyrica TAKE 1 CAPSULE BY MOUTH ONCE DAILY NA Active 25MG [facility] Humulin N INJECT 20 UNITS SUBCUTANEOUSLY ONCE DAILY NA Active 100U/ML [facility] levetiracetam 1 tab(s) orally Active 500 mg orally 2 times a day [facility] lisinopril 1 tab(s) orally Active 10 mg orally once a day [facility] Xarelto 1 tab(s) orally Active 15 mg orally once a day (in the evening) [facility] Fish Oil 1 cap(s) orally Active 1200 mg orally Once daily [facility] spironolactone 1 tab(s) orally Active 25 mg orally Once daily [facility] Fish Oil 1 cap(s) orally Active 1200 mg orally Once daily [facility] levetiracetam TAKE 1 TABLET BY MOUTH TWICE DAILY orally Active 750 mg orally 2 times a day [facility] triamterene/hctz 1 tab(s) orally Active 25 mg-37.5 mg orally once a day [facility] levetiracetam 1 tab(s) orally Active 750 mg orally 2 times a day [facility] Coumadin 1 tab(s) orally Active 4 mg orally once a day [facility] atorvastatin 1 tab(s) orally Active 40 mg orally once a day [facility] lisinopril 1 tab(s) orally Active 2.5 mg orally once a day [facility] triamterene/hctz TAKE 1 TABLET BY MOUTH ONCE DAILY NA Active 25 mg-37.5 mg [facility] Coumadin 1 tab(s) orally Active 6 mg orally once a day [facility] furosemide 1 tab(s) orally No Longer Active 40 mg orally once a day [facility] Plavix 1 tab(s) orally No Longer Active 75 mg orally once a day [facility] Amlodipine Besylate 5 Mg Tablet Daily Active [facility] Atorvastatin Calcium 20 Mg Tablet Daily Active [facility] Clopidogrel Bisulfate (Plavix) 75 Mg Tablet Daily Active [facility] Doxycycline Hyclate 100 Mg Capsule Twice A Day Active [facility] Furosemide (Lasix) 40 Mg Tablet Twice A Day Active Per MD Hernandez, continue if creatine lab WNL, hold if creatine elevated above 1.5 [facility] Glyburide/Metformin Hcl (Glucovance 5-500 Mg Tablet) 1 Each Tablet Twice A Day Active [facility] Lisinopril 10 Mg Tablet Daily Active [facility] Metoprolol Tartrate 50 Mg Tablet Twice A Day Active [facility] Sulfamethoxazole/Trimethoprim (Bactrim Ds Tablet) 1 Each Tablet Twice A Day Active [facility] Carvedilol (Coreg) 3.125 Mg Tab Twice A Day Active [facility] Levetiracetam 500 Mg Tablet Twice A Day Active [facility] [place]-3 Fatty Acids/Fish Oil ([place] 3 Fish Oil Softgel) 1 Each Capsule. Daily Active [facility] Pantoprazole Sodium (Protonix) 40 Mg Tablet. Daily@1700 Active [facility] Pregabalin (Lyrica) 25 Mg Cap Daily Active [facility] Triamterene/Hctz (Triamterene-Hctz 37.5-25 Mg Tb) 1 Ea Tab Active [facility] Ubidecarenone (Coq-10) 100 Mg Capsule Daily Active [facility] Allergies, Adverse Reactions, Alerts Substance Category Reaction Severity Reaction type Status Date Reported Comments Source Gabapentin 06/22/2018 [facility]: [facility] [place] Penicillins 06/22/2018 SNF: [facility] [place] penicillin Adverse Reaction hives Adverse Reaction Active 08/26/2018 [facility] PENICILLIN Unknown Allergy to Substance Active 10/11/2018 [facility] Metformin DIZZY Mild Propensity to adverse reactions Active 12/04/2018 [facility] Penicillin "SICK" Mild Propensity to adverse reactions Active 12/04/2018 [facility] Immunizations Immunization Date Given Site Status Last Updated Comments Source [employer] MEDICARE 04/06/2018 completed [facility] MED[facility]ARE 06/18/2017 completed [facility] MEDICARE 04/24/2016 completed [facility] Results Order Name Results Value Reference Range Date Interpretation Comments Source Capillary blood glucose measurement by glucometer (mass/volume) 184 70 - 120 12/13/2018 [facility] Blood leukocytes automated count (number/volume) 9.57 4.8 - 10.8 12/13/2018 [facility] Blood erythrocytes automated count (number/volume) 4.08 3.6 - 5.1 12/13/2018 [facility] Blood hemoglobin measurement (moles/volume) 11.9 12.0 - 16.0 12/13/2018 [facility] Automated blood hematocrit (volume fraction) 36.6 34.2 - 44.1 12/13/2018 [facility] Automated erythrocyte mean corpuscular volume 89.7 81 - 99 12/13/2018 [facility] Automated erythrocyte mean corpuscular hemoglobin (mass per erythrocyte) 29.2 28 - 32 12/13/2018 [facility] Automated erythrocyte mean corpuscular hemoglobin concentration measurement (mass/volume) 32.5 31 - 35 12/13/2018 [facility] RDW BldCo-Rto 13.7 11.7 - 14.4 12/13/2018 [facility] Automated blood platelet count (count/volume) 227 140 - 360 12/13/2018 [facility] Automated blood segmented neutrophil count as percentage of total leukocytes 69.1 38.7 - 80.0 12/13/2018 [facility] Automated blood lymphocyte count as percentage ot total leukocytes 18.7 18.0 - 39.1 12/13/2018 [facility] Automated blood monocyte count as percentage of total leukocytes 10.0 4.4 - 11.3 12/13/2018 [facility] Automated blood eosinophil count as percentage of total leukocytes 1.0 0.0 - 6.0 12/13/2018 [facility] Automated blood basophil count as percentage of total leukocytes 0.3 0.0 - 1.0 12/13/2018 [facility] IM GRANULOCYTES % 0.9 0.0 - 1.0 12/13/2018 [facility] Automated blood neutrophil count 6.6 2.1 - 6.9 12/13/2018 [facility] Blood lymphocytes count (number/volume) 1.8 1.0 - 3.2 12/13/2018 [facility] Blood monocytes automated count (number/volume) 1.0 0.2 - 0.8 12/13/2018 [facility] Automated blood eosinophil count 0.1 0.0 - 0.4 12/13/2018 [facility] Automated blood basophil count (count/volume) 0.0 0.0 - 0.1 12/13/2018 [facility] Absolute Immature Granulocyte (auto 0.09 0 - 0.1 12/13/2018 [facility] Serum or plasma sodium measurement (moles/volume) 135 136 - 145 12/13/2018 [facility] Serum or plasma potassium measurement (moles/volume) 4.0 3.5 - 5.1 12/13/2018 [facility] Serum or plasma chloride measurement (moles/volume) 103 98 - 107 12/13/2018 [facility] Serum or plasma carbon dioxide, total measurement (moles/volume) 24 22 - 29 12/13/2018 [facility] Serum or plasma anion gap 12.0 8 - 16 12/13/2018 [facility] Serum or plasma urea nitrogen measurement (mass/volume) 19 7 - 26 12/13/2018 [facility] Serum or plasma creatinine measurement (mass/volume) 0.85 0.57 - 1.11 12/13/2018 [facility] Serum or plasma urea nitrogen/creatinine mass ratio 22 6 - 25 12/13/2018 [facility] Estimated glomerular filtration rate (GFR) determination > 60 60 12/13/2018 [facility] Glucose measurement 215 74 - 118 12/13/2018 [facility] Serum or plasma calcium measurement (mass/volume) 8.4 8.4 - 10.2 12/13/2018 [facility] Hemoglobin A1c Percent 7.9 4.0 - 7.0 12/12/2018 [facility] Serum or plasma magnesium measurement (mass/volume) 2.1 1.3 - 2.1 12/12/2018 [facility] Serum or plasma triglyceride measurement (mass/volume) 162 0 - 149 12/12/2018 [facility] Serum or plasma cholesterol measurement (mass/volume) 128 0 - 199 12/12/2018 [facility] Serum or plasma cholesterol in LDL measurement (mass/volume) 66 60 - 130 12/12/2018 [facility] Serum or plasma cholesterol in HDL measurement (mass/volume) 30 40 - 60 12/12/2018 [facility] Serum or plasma total cholesterol/cholesterol in HDL mass ratio 4.3 3.0 - 3.6 12/12/2018 [facility] [facility] BNP Bld-mCnc 65.9 0 - 100 12/12/2018 [facility] Serum or plasma creatine kinase measurement (enzymatic activity/volume) 46 29 - 168 12/12/2018 [facility] Serum or plasma creatine kinase MB measurement (mass/volume) 1.00 0 - 5.0 12/12/2018 [facility] Troponin I measurement by highly sensitive enzyme immunoassay 0.015 0 - 0.300 12/12/2018 [facility] Serum or plasma thyroxine (T4) free measurement (mass/volume) 1.06 0.8 - 1.8 12/12/2018 [facility] Serum or plasma thyrotropin measurement by detection limit <=0.005 miu/l (units/volume) 0.113 0.350 - 4.940 12/12/2018 [facility] Urine color determination YELLOW YELLOW 12/11/2018 [facility] Urine clarity CLEAR CLEAR 12/11/2018 [facility] Specific gravity of Urine by Test strip <=1.005 1.010 - 1.025 12/11/2018 [facility] Urine pH measurement by automated test strip 6.5 5 - 7 12/11/2018 [facility] Urine leukocyte esterase detection by automated test strip NEGATIVE NEGATIVE 12/11/2018 [facility] Urine nitrite detection by automated test strip NEGATIVE NEGATIVE 12/11/2018 [facility] Urine protein detection by automated test strip NEGATIVE NEGATIVE 12/11/2018 [facility] Urine glucose detection by automated test strip NEGATIVE NEGATIVE 12/11/2018 [facility] Urine ketones detection by automated test strip NEGATIVE NEGATIVE 12/11/2018 [facility] Urine urobilinogen measurement by test strip (mass/volume) 0.2 0.2 - 1 12/11/2018 [facility] Urine total bilirubin detection NEGATIVE NEGATIVE 12/11/2018 [facility] Urine erythrocytes detection NEGATIVE NEGATIVE 12/11/2018 [facility] Automated urine sediment leukocyte count by microscopy (number/high power field) NONE 0 - 5 12/11/2018 [facility] Erythrocytes detection in urine sediment by light microscopy NONE 0 - 5 12/11/2018 [facility] Bacteria detection in urine sediment by light microscopy FEW NONE 12/11/2018 [facility] Epithelial cells detection in urine sediment by light microscopy NONE NONE 12/11/2018 [facility] Hyaline casts detection in urine sediment by light microscopy 2-5 0 - 1 12/11/2018 [facility] Prothrombin time (PT) in platelet poor plasma by coagulation assay 23.1 11.9 - 14.5 12/11/2018 [facility] INR in Platelet poor plasma by Coagulation assay 1.97 12/11/2018 [facility] Activated partial thromboplastin time (aPTT) in platelet poor plasma bycoagulation assay 34.5 23.8 - 35.5 12/11/2018 [facility] Serum or plasma total bilirubin measurement (mass/volume) 0.6 0.2 - 1.2 12/11/2018 [facility] Aspartate Amino Transf (AST/SGOT) 15 5 - 34 12/11/2018 [facility] Serum or plasma alanine aminotransferase measurement (enzymatic activity/volume) 21 0 - 55 12/11/2018 [facility] Serum or plasma protein measurement (mass/volume) 7.0 6.5 - 8.1 12/11/2018 [facility] Serum or plasma albumin measurement (mass/volume) 3.7 3.5 - 5.0 12/11/2018 [facility] Plasma globulin measurement (mass/volume) 3.3 2.3 - 3.5 12/11/2018 [facility] Serum or plasma albumin/globulin mass ratio 1.1 0.8 - 2.0 12/11/2018 [facility] Serum or plasma alkaline phosphatase measurement (enzymatic activity/volume) 77 40 - 150 12/11/2018 [facility] Urine color determination YELLOW YELLOW 12/04/2018 [facility] Urine clarity CLEAR CLEAR 12/04/2018 [facility] Specific gravity of Urine by Test strip 1.010 1.010 - 1.025 12/04/2018 [facility] Urine pH measurement by automated test strip 6 5 - 7 12/04/2018 [facility] Urine leukocyte esterase detection by automated test strip TRACE NEGATIVE 12/04/2018 [facility] Urine nitrite detection by automated test strip NEGATIVE NEGATIVE 12/04/2018 [facility] Urine protein detection by automated test strip NEGATIVE NEGATIVE 12/04/2018 [facility] Urine glucose detection by automated test strip 3+ NEGATIVE 12/04/2018 [facility] Urine ketones detection by automated test strip NEGATIVE NEGATIVE 12/04/2018 [facility] Urine urobilinogen measurement by test strip (mass/volume) 0.2 0.2 - 1 12/04/2018 [facility] Urine total bilirubin detection NEGATIVE NEGATIVE 12/04/2018 [facility] Urine erythrocytes detection NEGATIVE NEGATIVE 12/04/2018 [facility] Automated urine sediment leukocyte count by microscopy (number/high power field) NONE 0 - 5 12/04/2018 [facility] Erythrocytes detection in urine sediment by light microscopy NONE 0 - 5 12/04/2018 [facility] Bacteria detection in urine sediment by light microscopy NONE NONE 12/04/2018 [facility] Epithelial cells detection in urine sediment by light microscopy MODERATE NONE 12/04/2018 [facility] Hyaline casts detection in urine sediment by light microscopy 0-1 0 - 1 12/04/2018 [facility] Blood leukocytes automated count (number/volume) 6.74 4.8 - 10.8 12/04/2018 [facility] Blood erythrocytes automated count (number/volume) 3.56 3.6 - 5.1 12/04/2018 [facility] Blood hemoglobin measurement (moles/volume) 10.6 12.0 - 16.0 12/04/2018 [facility] Automated blood hematocrit (volume fraction) 31.9 34.2 - 44.1 12/04/2018 [facility] Automated erythrocyte mean corpuscular volume 89.6 81 - 99 12/04/2018 [facility] Automated erythrocyte mean corpuscular hemoglobin (mass per erythrocyte) 29.8 28 - 32 12/04/2018 [facility] Automated erythrocyte mean corpuscular hemoglobin concentration measurement (mass/volume) 33.2 31 - 35 12/04/2018 [facility] RDW BldCo-Rto 14.6 11.7 - 14.4 12/04/2018 [facility] Automated blood platelet count (count/volume) 223 140 - 360 12/04/2018 [facility] Automated blood segmented neutrophil count as percentage of total leukocytes 54.3 38.7 - 80.0 12/04/2018 [facility] Automated blood lymphocyte count as percentage ot total leukocytes 28.5 18.0 - 39.1 12/04/2018 [facility] Automated blood monocyte count as percentage of total leukocytes 11.3 4.4 - 11.3 12/04/2018 [facility] Automated blood eosinophil count as percentage of total leukocytes 4.5 0.0 - 6.0 12/04/2018 [facility] Automated blood basophil count as percentage of total leukocytes 0.7 0.0 - 1.0 12/04/2018 [facility] IM GRANULOCYTES % 0.7 0.0 - 1.0 12/04/2018 [facility] Automated blood neutrophil count 3.7 2.1 - 6.9 12/04/2018 [facility] Blood lymphocytes count (number/volume) 1.9 1.0 - 3.2 12/04/2018 [facility] Blood monocytes automated count (number/volume) 0.8 0.2 - 0.8 12/04/2018 [facility] Automated blood eosinophil count 0.3 0.0 - 0.4 12/04/2018 [facility] Automated blood basophil count (count/volume) 0.1 0.0 - 0.1 12/04/2018 [facility] Absolute Immature Granulocyte (auto 0.05 0 - 0.1 12/04/2018 [facility] Prothrombin time (PT) in platelet poor plasma by coagulation assay 22.8 11.9 - 14.5 12/04/2018 [facility] INR in Platelet poor plasma by Coagulation assay 1.94 12/04/2018 [facility] Activated partial thromboplastin time (aPTT) in platelet poor plasma bycoagulation assay 39.8 23.8 - 35.5 12/04/2018 [facility] Serum or plasma sodium measurement (moles/volume) 131 136 - 145 12/04/2018 [facility] Serum or plasma potassium measurement (moles/volume) 4.3 3.5 - 5.1 12/04/2018 [facility] Serum or plasma chloride measurement (moles/volume) 99 98 - 107 12/04/2018 [facility] Serum or plasma carbon dioxide, total measurement (moles/volume) 23 22 - 29 12/04/2018 [facility] Serum or plasma anion gap 13.3 8 - 16 12/04/2018 [facility] Serum or plasma urea nitrogen measurement (mass/volume) 18 7 - 26 12/04/2018 [facility] Serum or plasma creatinine measurement (mass/volume) 1.15 0.57 - 1.11 12/04/2018 [facility] Serum or plasma urea nitrogen/creatinine mass ratio 16 6 - 25 12/04/2018 [facility] Estimated glomerular filtration rate (GFR) determination 45 60 12/04/2018 [facility] Glucose measurement 351 74 - 118 12/04/2018 [facility] Serum or plasma calcium measurement (mass/volume) 8.7 8.4 - 10.2 12/04/2018 [facility] Serum or plasma total bilirubin measurement (mass/volume) 0.3 0.2 - 1.2 12/04/2018 [facility] Aspartate Amino Transf (AST/SGOT) 23 5 - 34 12/04/2018 [facility] Serum or plasma alanine aminotransferase measurement (enzymatic activity/volume) 31 0 - 55 12/04/2018 [facility] Serum or plasma protein measurement (mass/volume) 6.4 6.5 - 8.1 12/04/2018 [facility] Serum or plasma albumin measurement (mass/volume) 3.1 3.5 - 5.0 12/04/2018 [facility] Plasma globulin measurement (mass/volume) 3.3 2.3 - 3.5 12/04/2018 [facility] Serum or plasma albumin/globulin mass ratio 0.9 0.8 - 2.0 12/04/2018 [facility] BNP Bld-mCnc 97.3 0 - 100 12/04/2018 [facility] Serum or plasma creatine kinase MB measurement (mass/volume) 2.40 0 - 5.0 12/04/2018 [facility] Troponin I measurement by highly sensitive enzyme immunoassay < 0.001 0 - 0.300 12/04/2018 [facility] Serum or plasma alkaline phosphatase measurement (enzymatic activity/volume) 71 40 - 150 10/11/2018 [facility] Serum or plasma creatine kinase measurement (enzymatic activity/volume) 117 29 - 168 10/11/2018 [facility] Blood hemoglobin measurement (moles/volume) 11.9 12.0 - 16.0 10/11/2018 [facility] Automated blood hematocrit (volume fraction) 35.0 34.2 - 44.1 10/11/2018 [facility] Automated erythrocyte mean corpuscular volume 83.3 81 - 99 10/11/2018 [facility] Automated erythrocyte mean corpuscular hemoglobin (mass per erythrocyte) 28.3 28 - 32 10/11/2018 [facility] Automated erythrocyte mean corpuscular hemoglobin concentration measurement (mass/volume) 34.0 31 - 35 10/11/2018 [facility] RDW BldCo-Rto 16.9 11.7 - 14.4 10/11/2018 [facility] Automated blood platelet count (count/volume) 233 140 - 360 10/11/2018 [facility] Automated blood segmented neutrophil count as percentage of total leukocytes 55.8 38.7 - 80.0 10/11/2018 [facility] Automated blood lymphocyte count as percentage ot total leukocytes 30.0 18.0 - 39.1 10/11/2018 [facility] Automated blood monocyte count as percentage of total leukocytes 10.5 4.4 - 11.3 10/11/2018 [facility] Automated blood eosinophil count as percentage of total leukocytes 2.5 0.0 - 6.0 10/11/2018 [facility] Automated blood basophil count as percentage of total leukocytes 0.6 0.0 - 1.0 10/11/2018 [facility] IM GRANULOCYTES % 0.6 0.0 - 1.0 10/11/2018 [facility] Automated blood neutrophil count 4.3 2.1 - 6.9 10/11/2018 [facility] Blood lymphocytes count (number/volume) 2.3 1.0 - 3.2 10/11/2018 [facility] Blood monocytes automated count (number/volume) 0.8 0.2 - 0.8 10/11/2018 [facility] Automated blood eosinophil count 0.2 0.0 - 0.4 10/11/2018 [facility] Automated blood basophil count (count/volume) 0.1 0.0 - 0.1 10/11/2018 [facility] Absolute Immature Granulocyte (auto 0.05 0 - 0.1 10/11/2018 [facility] Urine color determination YELLOW YELLOW 10/11/2018 [facility] Urine clarity HAZY CLEAR 10/11/2018 [facility] Specific gravity of Urine by Test strip 1.015 1.010 - 1.025 10/11/2018 [facility] Urine pH measurement by automated test strip 6 5 - 7 10/11/2018 [facility] Urine leukocyte esterase detection by dipstick 1+ NEGATIVE 10/11/2018 [facility] Urine nitrite detection NEGATIVE NEGATIVE 10/11/2018 [facility] Urine protein measurement by test strip (mass/volume) NEGATIVE NEGATIVE 10/11/2018 [facility] Urine glucose detection NEGATIVE NEGATIVE 10/11/2018 [facility] Urine ketones detection by automated test strip NEGATIVE NEGATIVE 10/11/2018 [facility] Urine urobilinogen measurement by test strip (mass/volume) 0.2 0.2 - 1 10/11/2018 [facility] Urine total bilirubin measurement (mass/volume) NEGATIVE NEGATIVE 10/11/2018 [facility] Urine erythrocytes detection NEGATIVE NEGATIVE 10/11/2018 [facility] Automated urine sediment leukocyte count by microscopy (number/high power field) 0-5 0 - 5 10/11/2018 [facility] Erythrocytes detection in urine sediment by light microscopy 0-5 0 - 5 10/11/2018 [facility] Bacteria detection in urine sediment by light microscopy FEW NONE 10/11/2018 [facility] Epithelial cells detection in urine sediment by light microscopy MODERATE NONE 10/11/2018 [facility] Serum or plasma sodium measurement (moles/volume) 131 136 - 145 10/11/2018 [facility] Serum or plasma potassium measurement (moles/volume) 4.2 3.5 - 5.1 10/11/2018 [facility] Serum or plasma chloride measurement (moles/volume) 96 98 - 107 10/11/2018 [facility] Serum or plasma carbon dioxide, total measurement (moles/volume) 24 22 - 29 10/11/2018 [facility] Serum or plasma anion gap 15.2 8 - 16 10/11/2018 [facility] Serum or plasma urea nitrogen measurement (mass/volume) 32 7 - 26 10/11/2018 [facility] Serum or plasma creatinine measurement (mass/volume) 1.26 0.57 - 1.11 10/11/2018 [facility] Serum or plasma urea nitrogen/creatinine mass ratio 25 6 - 25 10/11/2018 [facility] Estimated glomerular filtration rate (GFR) determination 41 60 10/11/2018 [facility] Glucose measurement 325 74 - 118 10/11/2018 [facility] Serum or plasma calcium measurement (mass/volume) 9.0 8.4 - 10.2 10/11/2018 [facility] Serum or plasma total bilirubin measurement (mass/volume) 0.7 0.2 - 1.2 10/11/2018 [facility] Aspartate Amino Transf (AST/SGOT) 23 5 - 34 10/11/2018 [facility] Serum or plasma alanine aminotransferase measurement (enzymatic activity/volume) 27 0 - 55 10/11/2018 [facility] Serum or plasma protein measurement (mass/volume) 6.8 6.5 - 8.1 10/11/2018 [facility] Serum or plasma albumin measurement (mass/volume) 3.2 3.5 - 5.0 10/11/2018 [facility] Plasma globulin measurement (mass/volume) 3.6 2.3 - 3.5 10/11/2018 [facility] Serum or plasma albumin/globulin mass ratio 0.9 0.8 - 2.0 10/11/2018 [facility] Serum or plasma alkaline phosphatase measurement (enzymatic activity/volume) 71 40 - 150 10/11/2018 [facility] Serum or plasma creatine kinase measurement (enzymatic activity/volume) 117 29 - 168 10/11/2018 [facility] Serum or plasma creatine kinase MB measurement (mass/volume) 2.80 0 - 5.0 10/11/2018 [facility] Troponin I measurement by highly sensitive enzyme immunoassay < 0.001 0 - 0.300 10/11/2018 [facility] Blood sugar Blood sugar 172 07/11/2018 [facility]: [facility] Blood sugar Blood sugar 172 07/11/2018 [facility] Blood sugar Blood sugar 269 07/11/2018 [facility]: [facility] Blood sugar Blood sugar 170 07/10/2018 [facility]: [facility] Blood sugar Blood sugar 204 07/10/2018 [facility]: [facility] Blood sugar Blood sugar 183 07/10/2018 [facility]: [facility] Blood sugar Blood sugar 183 07/10/2018 [facility]: [facility] Blood sugar Blood sugar 168 07/10/2018 [facility]: [facility] Blood sugar Blood sugar 160 07/09/2018 [facility]: [facility] Blood sugar Blood sugar 167 07/09/2018 [facility]: [facility] Blood sugar Blood sugar 137 07/09/2018 [facility]: [facility] Blood sugar Blood sugar 137 07/09/2018 [facility]: [facility] Blood sugar Blood sugar 183 07/09/2018 [facility]: [facility] Blood sugar Blood sugar 290 07/08/2018 [facility]: [facility] Blood sugar Blood sugar 175 07/08/2018 [facility]: [facility] Blood sugar Blood sugar 139 07/08/2018 [facility]: [facility] Blood sugar Blood sugar 215 07/08/2018 [facility]: [facility] Blood sugar Blood sugar 192 07/07/2018 [facility]: [facility] Blood sugar Blood sugar 148 07/07/2018 [facility]: [facility] Blood sugar Blood sugar 119 07/07/2018 [facility]: [facility] Blood sugar Blood sugar 119 07/07/2018 [facility]: [facility] Blood sugar Blood sugar 251 07/07/2018 [facility]: [facility] Blood sugar Blood sugar 212 07/06/2018 [facility]: [facility] Blood sugar Blood sugar 224 07/06/2018 [facility]: [facility] Blood sugar Blood sugar 129 07/06/2018 [facility]: [facility] Blood sugar Blood sugar 129 07/06/2018 [facility]: [facility] Blood sugar Blood sugar 205 07/06/2018 [facility]: [facility] Blood sugar Blood sugar 215 07/05/2018 [facility]: [facility] Blood sugar Blood sugar 198 07/05/2018 [facility]: [facility] Blood sugar Blood sugar 163 07/05/2018 [facility]: [facility] Blood sugar Blood sugar 163 07/05/2018 [facility]: [facility] Blood sugar Blood sugar 218 07/05/2018 [facility]: [facility] Blood sugar Blood sugar 318 07/04/2018 [facility]: [facility] Blood sugar Blood sugar 192 07/04/2018 [facility]: [facility] Blood sugar Blood sugar 175 07/04/2018 [facility]: [facility] Blood sugar Blood sugar 304 07/04/2018 [facility]: [facility] Blood sugar Blood sugar 134 07/03/2018 [facility]: [facility] Blood sugar Blood sugar 296 07/03/2018 [facility]: [facility] Blood sugar Blood sugar 177 07/03/2018 [facility]: [facility] Blood sugar Blood sugar 177 07/03/2018 [facility]: [facility] Blood sugar Blood sugar 174 07/03/2018 [facility]: [facility] Blood sugar Blood sugar 270 07/02/2018 [facility]: [facility] Blood sugar Blood sugar 150 07/02/2018 [facility]: [facility] Blood sugar Blood sugar 119 07/02/2018 [facility]: [facility] Blood sugar Blood sugar 119 07/02/2018 [facility]: [facility] Blood sugar Blood sugar 253 07/02/2018 [facility]: [facility] Blood sugar Blood sugar 314 07/01/2018 [facility]: [facility] Blood sugar Blood sugar 216 07/01/2018 [facility]: [facility] Blood sugar Blood sugar 226 07/01/2018 [facility]: [facility] Blood sugar Blood sugar 226 07/01/2018 [facility]: [facility] Blood sugar Blood sugar 202 07/01/2018 [facility]: [facility] Blood sugar Blood sugar 325 06/30/2018 [facility]: [facility] Blood sugar Blood sugar 289 06/30/2018 [facility]: [facility] Blood sugar Blood sugar 219 06/30/2018 [facility]: [facility] Blood sugar Blood sugar 219 06/30/2018 [facility]: [facility] Blood sugar Blood sugar 217 06/30/2018 [facility]: [facility] Blood sugar Blood sugar 240 06/29/2018 [facility]: [facility] Blood sugar Blood sugar 174 06/29/2018 [facility]: [facility] Blood sugar Blood sugar 218 06/29/2018 [facility]: [facility] Blood sugar Blood sugar 218 06/29/2018 [facility]: [facility] Blood sugar Blood sugar 249 06/29/2018 [facility]: [facility] Blood sugar Blood sugar 224 06/28/2018 [facility]: [facility] Blood sugar Blood sugar 275 06/28/2018 [facility]: [facility] Blood sugar Blood sugar 190 06/28/2018 [facility] [place] [facility] Blood sugar Blood sugar 205 06/28/2018 [facility]: [facility] Blood sugar Blood sugar 212 06/27/2018 [facility]: [facility] Blood sugar Blood sugar 238 06/27/2018 [facility]: [facility] Blood sugar Blood sugar 165 06/27/2018 [facility]: [facility] Blood sugar Blood sugar 165 06/27/2018 [facility]: [facility] Blood sugar Blood sugar 262 06/27/2018 [facility]: [facility] Blood sugar Blood sugar 232 06/26/2018 [facility]: [facility] Blood sugar Blood sugar 231 06/26/2018 [facility]: [facility] Blood sugar Blood sugar 192 06/26/2018 [facility]: [facility] Blood sugar Blood sugar 192 06/26/2018 [facility]: [facility] Blood sugar Blood sugar 243 06/25/2018 [facility]: [facility] Blood sugar Blood sugar 172 06/25/2018 [facility]: [facility] Blood sugar Blood sugar 188 06/25/2018 [facility]: [facility] Blood sugar Blood sugar 188 06/25/2018 [facility]: [facility] Blood sugar Blood sugar 240 06/25/2018 [facility]: [facility] Blood sugar Blood sugar 192 06/25/2018 [facility]: [facility] Blood sugar Blood sugar 285 06/24/2018 [facility]: [facility] Blood sugar Blood sugar 182 06/24/2018 [facility]: [facility] Blood sugar Blood sugar 182 06/24/2018 [facility]: [facility] Blood sugar Blood sugar 238 06/24/2018 [facility]: [facility] Blood sugar Blood sugar 313 06/23/2018 [facility]: [facility] Blood sugar Blood sugar 300 06/23/2018 [facility]: [facility] Blood sugar Blood sugar 198 06/23/2018 [facility]: [facility] Blood sugar Blood sugar 212 06/23/2018 [facility]: [facility] Pathology Reports No Data Provided for [...] Hg) 129 07/11/2018 [facility]: [facility] Diastolic (mm Hg) 60 07/11/2018 [facility]: [facility] Heart Rate 87 {beats}/min 07/11/2018 [facility]: [facility] Systolic (mm Hg) 122 07/11/2018 [facility]: [facility] Diastolic (mm Hg) 77 07/11/2018 [facility]: [facility] Heart Rate 90 {beats}/min 07/11/2018 [facility]: [facility] Systolic (mm Hg) 137 07/10/2018 [facility]: [facility] Diastolic (mm Hg) 67 07/10/2018 [facility]: [facility] Heart Rate 90 {beats}/min 07/10/2018 [facility]: [facility] Systolic (mm Hg) 131 07/10/2018 [facility]: [facility] Diastolic (mm Hg) 75 07/10/2018 [facility]: [facility] Heart Rate 75 {beats}/min 07/10/2018 [facility]: [facility] Systolic (mm Hg) 142 07/09/2018 [facility]: [facility] Diastolic (mm Hg) 83 07/09/2018 [facility]: [facility] Heart Rate 88 {beats}/min 07/09/2018 [facility]: [facility] Systolic (mm Hg) 115 07/09/2018 [facility]: [facility] Diastolic (mm Hg) 60 07/09/2018 [facility]: [facility] Heart Rate 75 {beats}/min 07/09/2018 [facility]: [facility] Systolic (mm Hg) 126 07/08/2018 [facility]: [facility] Diastolic (mm Hg) 67 07/08/2018 [facility]: [facility] Heart Rate 80 {beats}/min 07/08/2018 [facility]: [facility] Systolic (mm Hg) 105 07/07/2018 [facility]: [facility] Diastolic (mm Hg) 63 07/07/2018 [facility]: [facility] Heart Rate 78 {beats}/min 07/07/2018 [facility]: [facility] Systolic (mm Hg) 126 07/06/2018 [facility]: [facility] Diastolic (mm Hg) 74 07/06/2018 [facility]: [facility] Heart Rate 81 {beats}/min 07/06/2018 [facility]: [facility] Systolic (mm Hg) 129 07/06/2018 [facility]: [facility] Diastolic (mm Hg) 68 07/06/2018 [facility]: [facility] Heart Rate 84 {beats}/min 07/06/2018 [facility]: [facility] Systolic (mm Hg) 122 07/05/2018 [facility]: [facility] Diastolic (mm Hg) 65 07/05/2018 [facility]: [facility] Heart Rate 70 {beats}/min 07/05/2018 [facility]: [facility] Systolic (mm Hg) 129 07/05/2018 [facility]: [facility] Diastolic (mm Hg) 62 07/05/2018 [facility]: [facility] Heart Rate 78 {beats}/min 07/05/2018 [facility]: [facility] Systolic (mm Hg) 118 07/04/2018 [facility]: [facility] Diastolic (mm Hg) 89 07/04/2018 [facility]: [facility] Heart Rate 71 {beats}/min 07/04/2018 [facility]: [facility] Systolic (mm Hg) 132 07/03/2018 [facility]: [facility] Diastolic (mm Hg) 73 07/03/2018 [facility]: [facility] Heart Rate 84 {beats}/min 07/03/2018 [facility]: [facility] Systolic (mm Hg) 126 07/02/2018 [facility]: [facility] Diastolic (mm Hg) 68 07/02/2018 [facility]: [facility] Heart Rate 71 {beats}/min 07/02/2018 [facility]: [facility] Systolic (mm Hg) 122 07/02/2018 [facility]: [facility] Diastolic (mm Hg) 60 07/02/2018 [facility]: [facility] Heart Rate 73 {beats}/min 07/02/2018 [facility]: [facility] Systolic (mm Hg) 124 07/01/2018 [facility]: [facility] Diastolic (mm Hg) 74 07/01/2018 [facility]: [facility] Heart Rate 81 {beats}/min 07/01/2018 [facility]: [facility] Systolic (mm Hg) 118 07/01/2018 [facility]: [facility] Diastolic (mm Hg) 82 07/01/2018 [facility]: [facility] Heart Rate 83 {beats}/min 07/01/2018 [facility]: [facility] Systolic (mm Hg) 115 06/30/2018 [facility]: [facility] Diastolic (mm Hg) 81 06/30/2018 [facility]: [facility] Heart Rate 81 {beats}/min 06/30/2018 [facility]: [facility] Systolic (mm Hg) 117 06/29/2018 [facility]: [facility] Diastolic (mm Hg) 60 06/29/2018 [facility]: [facility] Heart Rate 62 {beats}/min 06/29/2018 [facility]: [facility] Systolic (mm Hg) 118 06/29/2018 [facility]: [facility] Diastolic (mm Hg) 61 06/29/2018 [facility]: [facility] Heart Rate 69 {beats}/min 06/29/2018 [facility]: [facility] Systolic (mm Hg) 128 06/28/2018 [facility]: [facility] Diastolic (mm Hg) 66 06/28/2018 [facility]: [facility] Heart Rate 76 {beats}/min 06/28/2018 [facility]: [facility] Systolic (mm Hg) 139 06/28/2018 [facility]: [facility] Diastolic (mm Hg) 77 06/28/2018 [facility]: [facility] Heart Rate 81 {beats}/min 06/28/2018 [facility]: [facility] Systolic (mm Hg) 128 06/27/2018 [facility]: [facility] Diastolic (mm Hg) 71 06/27/2018 [facility]: [facility] Heart Rate 84 {beats}/min 06/27/2018 [facility]: [facility] Systolic (mm Hg) 117 06/26/2018 [facility]: [facility] Diastolic (mm Hg) 65 06/26/2018 [facility]: [facility] Heart Rate 80 {beats}/min 06/26/2018 [facility]: [facility] Systolic (mm Hg) 116 06/26/2018 [facility]: [facility] Diastolic (mm Hg) 63 06/26/2018 [facility]: [facility] Heart Rate 75 {beats}/min 06/26/2018 [facility]: [facility] Systolic (mm Hg) 116 06/25/2018 [facility]: [facility] Diastolic (mm Hg) 88 06/25/2018 [facility]: [facility] Heart Rate 86 {beats}/min 06/25/2018 [facility]: [facility] Systolic (mm Hg) 124 06/25/2018 [facility]: [facility] Diastolic (mm Hg) 64 06/25/2018 [facility]: [facility] Heart Rate 61 {beats}/min 06/25/2018 [facility]: [facility] Systolic (mm Hg) 117 06/24/2018 [facility]: [facility] Diastolic (mm Hg) 62 06/24/2018 [facility]: [facility] Heart Rate 82 {beats}/min 06/24/2018 [facility]: [facility] Systolic (mm Hg) 156 06/24/2018 [facility]: [facility] Diastolic (mm Hg) 71 06/24/2018 [facility]: [facility] Heart Rate 77 {beats}/min 06/24/2018 [facility]: [facility] Weight 189.8 06/23/2018 [facility]: [facility] Height 63 06/23/2018 [facility]: [facility] Weight 198 06/10/2018 [facility] [...] [id number] 04/24/2016 04/24/[facility] [id number] 04/24/2016 04/24/2016 [facility] [place] [id number] 04/24/2016 04/24/2016 [facility] [place] [id number] 04/24/2016 04/24/2016 [facility] [place] [id number] 04/24/2016 04/24/2016 [facility] Unknown [id number] 04/24/2016 04/24/2016 [facility] Unknown [id number] 04/29/2016 04/29/2016 [facility] Unknown [id number] 04/29/2016 04/29/2016 [facility] Unknown [id number] 04/29/2016 04/29/2016 [facility] Unknown [id number] 04/29/2016 04/29/2016 [facility] Unknown [id number] 04/29/2016 04/29/2016 [facility] & Sr [facility] [id number] 05/27/2016 05/27/2016 [facility] Unknown [id number] 05/27/2016 05/27/2016 [facility] [place] [id number] 05/27/2016 05/27/2016 [facility] [place] [id number] 05/27/2016 05/27/2016 [facility] Unknown [id number] 06/24/2016 06/24/2016 [facility] Unknown [id number] 06/24/2016 06/24/2016 [facility] Unknown [id number] 06/24/2016 06/24/2016 [facility] Message [id number] 07/15/2016 07/15/2016 [facility] Message [id number] 07/15/2016 07/15/2016 [facility] Unknown [id number] 08/12/2016 08/12/2016 [facility] Departed Emergency Room [id number] KENDALL LIU MD 10/11/2018 10/12/2018 [facility] Departed Emergency Room [id number] CLIFTON VARGAS MD 12/04/2018 12/04/2018 [facility] Discharged Inpatient (obs) [id number] COLIN ROSAS MD 12/11/2018 12/13/2018 [facility] Procedures Procedure Code Date Perfomer Comments Source Magnetic resonance imaging of brain without contrast [id number] 12/12/2018 [facility] Computed tomography of brain without radiopaque contrast [id number] 12/11/2018 [facility] X-ray of chest, single view [id number] 12/11/2018 [facility] X-ray of chest, two views [id number] 10/11/2018 [facility] Assessment and Plan No Data Provided for This Section Plan of Care Plan of Care Date Source Discharge Date 12/13/18 10:33am Disposition HOME, SELF-CARE Instructions/Education Provided Diabetes and Diet Prescriptions See Medication Section Additional Instructions/Education Diet as tolerated Activity as tolerated Follow up with Home health for speech therapy Prescriptions provided with discharge paperwork 12/13/2018 [facility] Discharge Date 12/04/18 10:40pm Disposition HOME, SELF-CARE Condition at Discharge Stable Instructions/Education Provided Osteoarthritis Chest Pain - Chest Wall Rash - Nonspecific Forms Provided Work/School Excuse Prescriptions See Medication Section Referrals HOLLY LORENZO DO Address: [address] [place] [address] [address] [place] [address] Additional Instructions/Education follow-up with your docotr as directed. 12/04/2018 [facility] Discharge Date 10/12/18 12:19am Disposition HOME, SELF-CARE Condition at Discharge Stable Instructions/Education Provided Abdominal Pain - Adult Forms Provided Work/School Excuse Prescriptions See Medication Section Referrals MERVAT BECERRA MD Address: [address] [place] [address] [address] [place] [address] Additional Instructions/Education Please f/u with the GI doctor provided for further work up 10/12/2018 [facility] Social History Social History Date Source Social History Problem Response Recorded Date/Time Onset Date Status Hx Psychiatric Problems No 06/09/2014 8:00pm Not Applicable Not Applicable Smoking Status Start Date Stop Date Never Smoker 12/13/2018 [facility] Smoking StatusStart DateEnd Date Unknown if ever smoked 07/11/2018 13:44:46 07/10/2018 SNF: [facility] Social History ElementQualifiersDate Reported Tobacco Use: . Are you a: Never Smoker August 12, 2016 caffeine yes. caffeine Yes 2 cups per day August 12, 2016 alcohol no. alcohol No August 12, 2016 Children: . sons:1 daughters:1 August 12, 2016 Marital Status: . August 12, 2016 Exercise: no. Do you exercise? No August 12, 2016 08/12/2016 [facility] [...] Comment not available Jun 24, 2016 07/02/2016 [facility] Advance Directives Order Name Results Value Date Source Advance Directives Advance Directives Directive Response Recorded Date/Time Does the patient have an advance directive? Yes 06/09/14 8:00pm If yes, is advance directive on file with [facility]? No 06/09/14 8:00pm If not on file with [facility] will patient provide a copy? Yes 06/09/14 8:00pm Do you have a Directive to Physician? Yes 12/11/18 2:19pm Do you have a Medical Power of Consulting Services Associate? Yes 12/11/18 2:19pm Do you have an [...] rights and responsibilities? Yes 12/11/18 2:19pm 12/13/2018 [facility] Advance Directives Advance Directives Directive Response Recorded Date/Time Does the patient have an advance directive? Yes 06/09/14 8:00pm If yes, is advance directive on file with [facility]? No 06/09/14 8:00pm If not on file with [facility] will patient provide a copy? Yes 06/09/14 8:00pm Do you have a Directive to Physician? No 12/04/18 7:13pm Do you have a Medical Power of Consulting Services Associate? No 12/04/18 7:13pm Do you have an [...] rights and responsibilities? Yes 12/04/18 7:13pm 12/04/2018 [facility] Advance Directives Advance Directives Directive Response Recorded Date/Time Does the patient have an advance directive? Yes 06/09/14 8:00pm If yes, is advance directive on file with [facility]? No 06/09/14 8:00pm If not on file with [facility] will patient provide a copy? Yes 06/09/14 8:00pm Do you have a Directive to Physician? No 10/11/18 7:28pm Do you have a Medical Power of Consulting Services Associate? No 10/11/18 7:28pm Do you have an [...] rights and responsibilities? Yes 10/11/18 7:28pm 10/12/2018 [facility] Advance Directives Advance Directives Cardiopulmonary Resuscitation 07/11/2018 SNF: [facility] Functional Status No Data Provided for This Section
--- NOTE | 2019-01-04 17:53 | Diagnostic Imaging Report ---
EXAM: ABDOMINOPELVIC CTA WITH AND WITHOUT IV CONTRAST. 3D post-processing of the images was performed, and the post-processed images were used in interpretation. INDICATION: GI bleeding COMPARISON: None. TECHNIQUE: Abdomen and pelvis were scanned utilizing a multidetector helical scanner from the lung base to the pubic symphysis before and after administration of IV contrast. Coronal and sagittal reformations were obtained. 3D postprocessing of the images was performed and the postprocessed images were used in interpretation. CTA protocol was performed. Scan was performed prior to contrast administration, during arterial phase, and delayed phase. IV CONTRAST: 100mL of Isovue 370 ORAL CONTRAST: Water COMPLICATIONS: None RADIATION DOSE: Total DLP: 2081.1 mGy*cm Dose modulation, iterative reconstruction, and/or weight based adjustment of the mA/kV was utilized to reduce the radiation dose to as low as reasonably achievable. FINDINGS: LOWER THORAX: Bibasilar dependent subsegmental atelectasis. No focal consolidation. Multichamber cardiomegaly. Athetotic calcifications of the coronary arteries. 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 Small sliding hiatal hernia. HEPATOBILIARY: No focal liver lesions. Scattered calcified granulomas throughout the liver parenchyma. No intrahepatic biliary ductal dilatation. Status post cholecystectomy. SPLEEN: Numerous punctate calcified granulomas throughout the nonenlarged spleen. PANCREAS: No focal masses or ductal dilatation. ADRENALS: No adrenal nodules. KIDNEYS/URETERS: No hydronephrosis, stones, or solid mass lesions. PELVIC ORGANS/BLADDER: Coarse uterine calcifications. PERITONEUM / RETROPERITONEUM: No free air or fluid. LYMPH NODES: No lymphadenopathy. VESSELS: No evidence of active arterial extravasation. There are diffuse atherosclerotic calcifications of the abdominal aorta and major branches. No abdominal aortic aneurysm or iliac artery aneurysm. The abdominal aorta and major branches are patent. There is mild stenosis at the celiac origin and moderate stenosis at the superior mesenteric artery origin. The inferior mesenteric artery is patent. Moderate ostial narrowing at the origins of both right and left single renal arteries. GI TRACT: Severe sigmoid colonic diverticulosis with no CT evidence of diverticulitis. No abnormal bowel wall thickening. No bowel obstruction. BONES AND SOFT TISSUES: No acute osseous injury. Diffuse osteopenia. Multilevel degenerative changes of the visualized spine. Grade 1 anterolisthesis at L4-5. IMPRESSION: No evidence of acute gastrointestinal active extravasation. Severe sigmoid diverticulosis without CT evidence of diverticulitis. Diffuse atherosclerotic arterial calcifications including of the coronary arteries. Moderate SMA ostial narrowing and mild celiac ostial narrowing. Moderate ostial narrowing at right and left single renal arteries. Signed by: Yahir Alford MD on 01/04/2019 5:50 PM
[2019-01-04] MEDS ORDERED: LACTATED RINGER'S 1,000 ML IV SCH (18:00)
[2019-01-04] MEDS: PANTOPRAZOLE 40 MG 10ML VIAL IV SCH (18:04)
[2019-01-04 18:48] LABS: HEMATOCRIT 26.1 % (34.2-44.1)
--- NOTE | 2019-01-04 21:00 | NUR ---
patient came from ER awake alert oriented, noted slurred speech. Vitals checked, all within normal level. Son on bed side.
[2019-01-04 21:06] VITALS: BP 120/58
--- NOTE | 2019-01-04 21:11 | NUR ---
blood sugar checked, insulin sliding scale given. Dr Driver came to patient room, did rectal exam to patient. the MD order to discontinue HH q6 hr, and just check HH in the morning instead.
[2019-01-04 21:55] VITALS: BP 120/58
[2019-01-04] MEDS: INSULIN REGULAR, HUMAN 100 UNIT/1 ML 3ML VIAL SQ SCH (22:08)
[2019-01-05] VITALS (8 sets, daily range): BP systolic 98–116; BP diastolic 53–68
[2019-01-05] MEDS ORDERED: IOPAMIDOL 370 MG/ML 200 ML INFUS..BTL INJ ONE (03:01)
[2019-01-05] MEDS ORDERED: SODIUM CHLORIDE 0.9% 100 ML 100 ML ONE (03:01)
--- NOTE | 2019-01-05 04:27 | NUR ---
vitals checked, all in normal level, patient tolerated using bed side commode well, no distress noted, no s/s of bleeding noted.
--- NOTE | 2019-01-05 04:33 | History and Physical ---
This is GI CONSULT NOT ( not H&P) CHIEF COMPLAINT: Rectal bleeding couple of times today. HISTORY OF PRESENTING ILLNESS: [age] years old white female, who is a residential resident. She has underlying dementia. I cannot derive any history from her. Most of the information is derived through reviewing the chart and personal conversation with emergency room physician, Dr. Khan. Apparently, patient has a coronary artery disease, hypertension, type 2 diabetes, dementia, atrial fibrillation, on Xarelto. She is status post pacemaker, who was noticed to have bright red blood per rectum few times in residential. That prompted the residential staff to send her to the emergency room. Here she was noted to be hemodynamically stable, blood pressure was noted 116/52, not tachycardic. Her stool guaiac was noted positive for occult blood. However, no blood was seen on the rectal exam. Hemoglobin was noted 9.0, it was initially 10.1. No episode of rectal bleeding reported in the emergency room and on the medical floor. Xarelto has been withheld. CT angiogram of the abdomen and pelvis revealed no evidence of any acute gastrointestinal bleeding. The patient was noted to have a sigmoid diverticulosis without any evidence of diverticulitis. She was noted to have a diffuse atherosclerotic arterial calcification including the coronary artery as well as abdominal vessels. REVIEW OF SYSTEMS: Unobtainable. PAST MEDICAL HISTORY: Coronary artery disease, type 2 diabetes, history of CVA, hypertension, hyperlipidemia and dementia. PAST SURGICAL HISTORY: Pacemaker placement. FAMILY HISTORY: Noncontributory given her advanced age. SOCIAL HISTORY: No smoking, alcohol, or any illicit drug use. She is a residential resident. PHYSICAL EXAMINATION: VITAL SIGNS: Temperature 98.6, pulse 73, respirations 18, blood pressure 112/52, and oxygen saturation 98% on room air. GENERAL: Obese body habitus, not in any acute distress. HEENT: Oral mucosa is moist. Anicteric sclerae. CVS: S1, S2. Regular. LUNGS: Bilaterally grossly clear, although the patient has very poor inspiratory efforts, has pacemaker in the left anterior chest wall. ABDOMEN: Obese, nondistended, nontender. No palpable mass or hernia. Healed midline surgical scar, patient also has a thoracotomy scar. EXTREMITIES: Warm. No leg edema. Rectal Exam: dark green stool, no mass, no blood on gloved finger. No palpable hemorrhoids. LABORATORY DATA: Hemoglobin initially was 10.1, repeat 9.0, hematocrit 29.3, repeat 26.1. Sodium 126, potassium 4.4, chloride 91, bicarb 24, BUN 34, creatinine 1.32, and glucose 258. Liver enzymes normal. A CTA of the abdomen and pelvis showed no evidence of acute gastrointestinal active extravasation. Severe sigmoid diverticulosis without CT evidence of diverticulitis. Diffuse atherosclerotic arterial calcifications including coronary arteries. Moderate SMA, ostial narrowing and mild celiac ostial narrowing. Moderate ostial narrowing at right and left single renal arteries. IMPRESSION: Unwitnessed rectal bleeding, on my digital rectal examination, stool was noted dark brown, no blood on the gloved finger. Hemoglobin also remained stable. The patient likely have had a hemorrhoidal type of bleeding. CTA of the abdomen and pelvis is negative. PLAN: I do not think patient is having any GI bleeding issues here. Xarelto can be resumed. There is no need to do serial hemoglobin. I will resume diabetic diet. Monitor stool. Quinton Driver MD SA/WILLIAM /[id number] SALINAS
[2019-01-05 05:16] LABS: HEMOGLOBIN 8.9 g/dL (12.0-16.0)
--- NOTE | 2019-01-05 07:03 | NUR ---
Walking rounds done and report received. Patient is awake, alert x3 and able to make needs known. She was pulled up and repositioned for comfort. POC. Son at the bedside. Both were instructed to call for assistance as needed and verbalized understanding.
[2019-01-05] MEDS: INSULIN REGULAR, HUMAN 100 UNIT/1 ML 3ML VIAL SQ SCH ×4 (07:30→20:34)
[2019-01-05] MEDS: SENNOSIDES 8.6 MG TAB PO SCH (08:24)
[2019-01-05] MEDS: LEVETIRACETAM 500 MG TAB PO SCH ×3 (08:24→20:33)
[2019-01-05] MEDS: PANTOPRAZOLE 40 MG 10ML VIAL IV SCH ×2 (08:24→20:33)
[2019-01-05] MEDS: CARVEDILOL 3.125 MG TAB PO SCH ×2 (08:24→16:41)
[2019-01-05] MEDS ORDERED: FUROSEMIDE 40 MG TAB PO SCH (09:00)
[2019-01-05] MEDS ORDERED: NPH, HUMAN INSULIN ISOPHANE 100 UNIT/1 ML 3ML VIAL SQ SCH (09:00)
--- NOTE | 2019-01-05 13:40 | NUR ---
Visit made by the Spiritual Care Department Pastoral Visitor, Luma Jhaveri. PV provided pastoral presence, prayer, hospitality, and supportive listening. Pastoral Visitor informed pt/family of the scope of [employer] [facility] and availability. DONALD JOSE Tourist Agent Spiritual Care Department O: [phone] Pager: [phone] ([phone] number calling from)
[2019-01-05] MEDS ORDERED: RIVAROXABAN 20 MG TABLET PO SCH (17:00)
--- NOTE | 2019-01-05 18:57 | NUR ---
RECEIVED REPORT FROM PREVIOUS NURSE. PATIENT IN BED. CALL LIGHT WITHIN REACH.
--- NOTE | 2019-01-05 19:15 | NUR ---
Walking rounds done and report given. Call machado within reach.
[2019-01-05] MEDS ORDERED: PREGABALIN 25 MG CAP PO SCH (21:00)
[2019-01-05] MEDS ORDERED: ATORVASTATIN 40 MG TAB PO SCH (21:00)
[2019-01-05] MEDS ORDERED: SENNA-S TABLET PO SCH (21:00)
--- NOTE | 2019-01-05 23:38 | Progress Note ---
DATE: 01/05/2019 SUBJECTIVE: The patient is tolerating oral diet. Reports no abdominal pain. She has not had any bowel movement today. REVIEW OF SYSTEMS: Unobtainable due to underlying dementia. MEDICATIONS: Reviewed as per MAR. PHYSICAL EXAMINATION: VITAL SIGNS: Temperature 98.75, respirations 20, blood pressure 112/53, oxygen saturation 98% on room air. GENERAL: Obese body habitus, not in any acute distress. HEENT: Oral mucosa is moist. Anicteric sclerae. ABDOMEN: Obese, soft, nondistended, nontender. No palpable mass or hernia. Positive bowel sounds. LABORATORY DATA: Hemoglobin dropped down to 8.9 from 9.0. IMPRESSION: 1. No rectal bleeding. Hemoglobin remains stable. No need to check hemoglobin daily. Refrain from any blood drop. 2. Constipation. PLAN: Bowel regimen. The patient's Xarelto has already been started. No rectal bleeding reported. The patient can be [facility] from GI standpoint. Quinton Driver MD SA/WILLIAM /[id number] MTDD
[2019-01-06] VITALS: BP 123/60
[2019-01-06 03:20] LABS: BASOPHILS % 0.5 % (0.0-1.0); EOSINOPHILS # (AUTO) 0.4 (0.0-0.4); EOSINOPHILS % 5.9 % (0.0-6.0); HEMATOCRIT 26.4 % (34.2-44.1); HEMOGLOBIN 8.9 g/dL (12.0-16.0); LYMPHOCYTES # (AUTO) 2.5 (1.0-3.2); LYMPHOCYTES % 33.4 % (18.0-39.1); MEAN CORPUSCULAR HEMOGLOBIN 29.8 pg (28-32); MEAN CORPUSCULAR HGB CONC 33.7 g/dL (31-35); MEAN CORPUSCULAR VOLUME 88.3 fL (81-99); MONOCYTES # (AUTO) 0.9 (0.2-0.8); MONOCYTES % 12.1 % (4.4-11.3); NEUTROPHILS # (AUTO) 3.5 (2.1-6.9); NEUTROPHILS % 47.4 % (38.7-80.0); PLATELET COUNT 229 x10e3/uL (140-360); RED BLOOD COUNT 2.99 x10e6/uL (3.6-5.1); RED CELL DISTRIBUTION WIDTH 13.2 % (11.7-14.4)
[2019-01-06 03:47] LABS: ANION GAP 14.1 mmol/L (8-16); CALCIUM 8.5 mg/dL (8.4-10.2); CREATININE, SERUM 0.92 mg/dL (0.57-1.11); POTASSIUM 4.1 mmol/L (3.5-5.1)
[2019-01-06 04:00] VITALS: BP 128/62
--- NOTE | 2019-01-06 06:54 | NUR ---
Gave report to oncoming nurse. Call light within reach. Patient in bed.
[2019-01-06] MEDS ORDERED: ASCORBIC ACID500 MG PO (07:40)
[2019-01-06] MEDS ORDERED: FERROUS SULFAT325 M1 PO (07:40)
[2019-01-06] MEDS: INSULIN REGULAR, HUMAN 100 UNIT/1 ML 3ML VIAL SQ SCH (07:57)
[2019-01-06 07:58] VITALS: BP 108/50
[2019-01-06 08:00] VITALS: BP 108/50
[2019-01-06] MEDS: SENNOSIDES 8.6 MG TAB PO SCH (08:09)
[2019-01-06] MEDS ORDERED: POLYETHYLENE GLYCOL 3350 17 GM PACK PO SCH (09:00)
--- NOTE | 2019-01-07 11:53 | Discharge Summary ---
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 HISTORY: The patient has a history of hypertension, type 2 diabetes, hypothyroidism, hyperlipidemia, atrial fibrillation, coronary artery disease and cerebrovascular accident. SURGICAL HISTORY: Appendectomy, pacer, cholecystectomy, and coronary artery bypass graft. FAMILY HISTORY: The patient's mom and dad both had cancer. The patient's dad had a heart attack. SOCIAL HISTORY: Noncontributory. HOSPITAL COURSE: An 83-year-old female brought from [facility] after having a bloody bowel movement on the couch per staff report. The facility doctor said to take the patient to the ER. due to the patient's AMS, HPI was from the son, who was working at the time of the incident, so he had no firsthand experience. Per GI note, no blood was noted on the rectal exam, but ER found stool in the blood on record. On admission, the patient's hemoglobin was 10.1 and a few hours later it was 9. The next three hemoglobins were stable. CT of the abdomen and pelvis showed no evidence of active GI extravasation, severe sigmoid diverticulosis without diverticulitis. The patient's Xarelto was initially held due to the GI bleed, but after GI saw the patient and did the rectal exam, he restarted the Xarelto, cancelled the serial hemoglobins, and said the patient can follow up outpatient. Per GI recommendation that bleeding is likely hemorrhoids and since the patient had a stable hemoglobin, she was discharged back to the assisted living facility. She will continue home medicines except the triamterene/hydrochlorothiazide due to the patient's hyponatremia. She will follow up with primary care in one to two weeks. The patient and son understand discharge instructions and agrees to plan. Vital signs stable, the patient afebrile. Dictated by Renetta Leigh NP MD SILVIA Gorman/MODL /[id number]
== END 2019-01-06 08:28 | disposition home or self-care (01) ==
LOC: ER 14:51 → ERHOLD 17:05 → IMCU 20:39
PROVIDERS: ADMIT Internal Medicine; ATTEND Internal Medicine
DX: K64.9 Unspecified hemorrhoids (principal); I25.10 Atherosclerotic heart disease of native coronary artery without angina pectoris; Z86.73 Personal history of transient ischemic attack (TIA), and cerebral infarction without residual deficits; E03.9 Hypothyroidism, unspecified; I48.91 Unspecified atrial fibrillation; Z79.01 Long term (current) use of anticoagulants; E78.5 Hyperlipidemia, unspecified; K59.00 Constipation, unspecified; I12.9 Hypertensive chronic kidney disease with stage 1 through stage 4 chronic kidney disease, or unspecified chronic kidney disease; E11.22 Type 2 diabetes mellitus with diabetic chronic kidney disease; N18.3 Chronic kidney disease, stage 3 (moderate); N17.9 Acute kidney failure, unspecified; D62 Acute posthemorrhagic anemia; F03.90 Unspecified dementia, unspecified severity, without behavioral disturbance, psychotic disturbance, mood disturbance, and anxiety
CPT/HCPCS: 36415 ×3; 74174; 80048; 80053; 81001; 82948 ×2; 83735; 83880; 85014 ×2; 85018 ×2; 85025 ×2; 87086; 99284; C9113 ×2; G0378 ×3; J2405; J7040; J7121; Q9967

== ENCOUNTER 2019-04-12 06:50 | Observation (INO) | payer MEDICARE, BC ==
[~2019-04-12] VITALS: Ht 162.6 cm; Wt 89.8 kg
[~2019-04-12 06:50] MED LIST changes: +ASCORBIC ACID500 MG PO; +FERROUS SULFAT325 M1 PO; +HUMULIN N100 UNITS/ SQ; +PREPARATION H C26 GM; +SENNA LAX8.6 MG PO
[2019-04-12 07:30] LABS: BASOPHILS % 0.8 % (0.0-1.0); EOSINOPHILS # (AUTO) 0.1 (0.0-0.4); EOSINOPHILS % 2.3 % (0.0-6.0); HEMATOCRIT 35.4 % (34.2-44.1); HEMOGLOBIN 11.2 g/dL (12.0-16.0); LYMPHOCYTES # (AUTO) 1.1 (1.0-3.2); LYMPHOCYTES % 21.9 % (18.0-39.1); MEAN CORPUSCULAR HEMOGLOBIN 26.4 pg (28-32); MEAN CORPUSCULAR HGB CONC 31.6 g/dL (31-35); MEAN CORPUSCULAR VOLUME 83.5 fL (81-99); MONOCYTES # (AUTO) 0.6 (0.2-0.8); MONOCYTES % 12.1 % (4.4-11.3); NEUTROPHILS # (AUTO) 3.2 (2.1-6.9); NEUTROPHILS % 62.7 % (38.7-80.0); PLATELET COUNT 215 x10e3/uL (140-360); RED BLOOD COUNT 4.24 x10e6/uL (3.6-5.1); RED CELL DISTRIBUTION WIDTH 18.7 % (11.7-14.4)
[2019-04-12 07:43] LABS: ALANINE AMINOTRANSFERASE 17 IU/L (0-55); ALBUMIN 3.4 g/dL (3.5-5.0); ALKALINE PHOSPHATASE 93 IU/L (40-150); ANION GAP 11.7 mmol/L (8-16); BLOOD UREA NITROGEN 9 mg/dL (7-26); BUN/CREATININE RATIO 12 (6-25); CARBON DIOXIDE 26 mmol/L (22-29); CHLORIDE 104 mmol/L (98-107); CREATINE KINASE 140 IU/L (29-168); CREATININE, SERUM 0.76 mg/dL (0.57-1.11); EST GLOMERULAR FILTRATION RATE > 60 ML/MIN (60-); GLUCOSE 85 mg/dL (74-118); POTASSIUM 3.7 mmol/L (3.5-5.1); SODIUM 138 mmol/L (136-145)
[2019-04-12 07:52] LABS: BILIRUBIN,URINE NEGATIVE (NEGATIVE); CLARITY,URINE CLEAR (CLEAR); COLOR,URINE YELLOW (YELLOW); KETONES,URINE NEGATIVE (NEGATIVE); LEUKOCYTE ESTERASE ,URINE NEGATIVE (NEGATIVE); NITRITE,URINE NEGATIVE (NEGATIVE); PROTEIN,URINE DIPSTICK NEGATIVE (NEGATIVE); URINE UROBILINOGEN 0.2 mg/dL (0.2 - 1)
[2019-04-12 08:13] LABS: AMORPHOUS SEDIMENT,URINE FEW (FEW); BACTERIA,URINE MODERATE /HPF; EPITHELIAL CELLS,URINE FEW /LPF; RBC,URINE 0-5 /HPF (0-5)
--- NOTE | 2019-04-12 08:48 | Diagnostic Imaging Report ---
CT BRAIN WO HISTORY: Altered mental status COMPARISON: Head CT 12/11/2018 Technique: Noncontrast axial scans were obtained from skull base to the vertex. Coronal and sagittal reconstructions obtained from the axial data. One or more of the following dose reduction techniques were used: Automated exposure control, adjustment of the mA and/or kV according to patient size, and/or utilization of iterative reconstruction technique. DISCUSSION: Scalp/Skull: Unremarkable. Brain sulci: Mildly prominent. Ventricles: Compensatory dilatation. Extra-axial spaces: No masses or fluid collections. Carotid siphon calcifications are present. 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 Old focal paravermian cerebellar cortical infarct is also unchanged. Mild bilateral deep white matter hypodensity is likely chronic microvascular ischemic change. Otherwise, no masses, hemorrhage, or large vascular territory acute infarct. Dural sinuses: No abnormal densities. Sellar/Suprasellar region: Intact. Skull base: Intact. Incidental findings: None. IMPRESSION: 1. No acute intracranial abnormalities. 2. Mild supratentorial chronic microvascular ischemic change. 3. 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 4. Old focal paravermian cerebellar cortical infarct. Signed by: Dr. Jose Freeman M.D. on 04/12/2019 8:45 AM
--- NOTE | 2019-04-12 09:02 | Diagnostic Imaging Report ---
EXAMINATION: CHEST SINGLE (PORTABLE) INDICATION: Abdominal pain COMPARISON: Chest radiograph of 12/11/2018 FINDINGS: LINES/TUBES:Left chest pacer unchanged. EKG leads overlie the chest. LUNGS:The lungs are moderately inflated. There is perihilar fullness and indistinctness of the pulmonary vasculature. Mild bibasilar subsegmental atelectasis. Subcentimeter right apical calcified granuloma. PLEURA:No pleural effusion or pneumothorax. MEDIASTINUM:Cardiomediastinal silhouette is stably enlarged. Postoperative findings of prior CABG. BONES/SOFT TISSUES:No acute osseous injury. ABDOMEN:No free air under the diaphragm. IMPRESSION: Cardiomegaly and mild interstitial edema. Signed by: Yahir Alford MD on 04/12/2019 8:59 AM
--- NOTE | 2019-04-12 13:44 | NUR ---
Received patient via stretcher from ER. Accompanied by son.HAYDEN to person, place. Respirations even and unlabored. Tele #[phone]. Oriented patient to room. Instructed to use call light for assistance. Voiced understanding.
[2019-04-12 13:59] VITALS: BP 152/67
[2019-04-12 14:00] VITALS: BP 152/67
[2019-04-12 14:15] VITALS: BP 152/67
[2019-04-12] MEDS ORDERED: GLIPIZIDE5 MG PO (14:17)
[2019-04-12] MEDS ORDERED: ACETAMINOPHEN 325 MG TAB PO PRN (14:45)
[2019-04-12] MEDS ORDERED: HYDRALAZINE HCL 20 MG/ML VIAL IV PRN (14:45)
[2019-04-12] MEDS ORDERED: ONDANSETRON HCL INJ 2MG/ML 2ML 2 MG/ML VIAL IV PRN (14:45)
[2019-04-12] MEDS ORDERED: SENNOSIDES 8.6 MG TAB PO PRN (14:45)
[2019-04-12 16:10] VITALS: BP 133/60
[2019-04-12] MEDS: GLIPIZIDE 5 MG TAB PO SCH (16:24)
[2019-04-12] MEDS: LEVETIRACETAM 500 MG TAB PO SCH (16:25)
[2019-04-12] MEDS: RIVAROXABAN 20 MG TABLET PO SCH (16:25)
[2019-04-12] MEDS: CARVEDILOL 3.125 MG TAB PO SCH (16:25)
[2019-04-12] MEDS ORDERED: FAMOTIDINE 20 MG TAB PO SCH (16:30)
[2019-04-12] MEDS ORDERED: RIVAROXABAN 10 MG TABLET PO SCH (17:00)
--- NOTE | 2019-04-12 18:50 | NUR ---
Report given to oncoming nurse of patient's status. Resting in bed. NO s/s of acute distress noted. Son at bedside, side rails upx2, call light within reach, bed alarm on.
[2019-04-12] MEDS ORDERED: DEXTROSE 50% SYRINGE 50 ML IV PRN (19:00)
--- NOTE | 2019-04-12 19:00 | NUR ---
patient received awake, alert, lying quietly in bed. no c/o pain noted. pm assessment complete. family noted at the bedside. patient/family instructed to call for assistance when needed.
[2019-04-12 19:30] VITALS: BP 140/63
[2019-04-12 20:00] VITALS: BP 140/63
[2019-04-12] MEDS: INSULIN REGULAR, HUMAN 100 UNIT/1 ML 3ML VIAL SQ SCH (20:52)
[2019-04-12] MEDS: PREGABALIN 25 MG CAP PO SCH (20:57)
[2019-04-12] MEDS: CEFTRIAXONE SOD 1 GM/NS 50 ML 50 ML IV SCH (20:57)
[2019-04-12] MEDS: ATORVASTATIN 40 MG TAB PO SCH (20:57)
[2019-04-12] MEDS: PANTOPRAZOLE SOD 40 MG TABEC PO SCH (20:57)
[2019-04-12] MEDS ORDERED: SODIUM CHLORIDE 0.9% 250ML 250 ML ONE (21:15)
[2019-04-13] VITALS (11 sets, daily range): BP systolic 128–167; BP diastolic 59–89
--- NOTE | 2019-04-13 | NUR ---
patient appears to be resting quietly. son remains at the bedside.
--- NOTE | 2019-04-13 01:13 | Consultation ---
DATE OF CONSULTATION: 04/12/2019 Neurology Consult Note HISTORY OF PRESENT ILLNESS: Ms. Vera is an 83-year-old right-hand dominant woman with multiple vascular risk factors, admitted to [facility] on April 12, 2019, under observation status with worsening neurological deficits suspicious for a stroke and urinary tract infection. On the morning of admission, the patient and her son noted worsening of baseline dysarthria and expressive aphasia, worsening right hemiparesis, and mild confusion. In addition to these symptoms, Ms. Vera endorsed abdominal pain. She did not report nausea, vomiting, diarrhea, constipation, urinary frequency, urinary urgency, or burning with urination. Ms. Vera did not report headache associated with the above symptoms. Concern Ms. Vera may be experiencing another stroke, the patient was brought to the emergency center at [facility] for further evaluation of her symptoms. Upon arrival in the emergency center, the patient was afebrile with a blood pressure of 174/101 mmHg and a pulse of 79 beats per minute. Documentation of the patient's neurological examination is unavailable for review at present. Routine blood and urine studies revealed findings on a urinalysis suspicious for a urinary tract infection. A CT of the brain without contrast was performed while the patient was in the emergency center. There was no evidence of recent large territorial ischemia or hemorrhage. Ms. Vera was subsequently admitted to [facility] under observation status for further evaluation and treatment of her symptoms. As mentioned above, the patient does have a prior history of multiple strokes with residual deficits as follows: Mild dysarthria, mild expressive aphasia, mild right hemiparesis, with the leg being more affected than the arm or face. REVIEW OF SYSTEMS: Abdominal pain, dysarthria, expressive aphasia, right hemiparesis, impairment of balance and gait (chronic). Otherwise, a 12-point review of systems is negative. PAST MEDICAL HISTORY: Hypertension, hyperlipidemia, diabetes mellitus, coronary artery disease, atrial fibrillation, gastroesophageal reflux disease, peptic ulcer disease, secondary seizure disorder, prior strokes with residual dysarthria, expressive aphasia, and right hemiparesis, and anemia. PAST SURGICAL HISTORY: Ms. Vera underwent a colonoscopy last week. The results of this study are unknown. Other surgeries include: Cholecystectomy, appendectomy, 4- vessel CABG, bilateral cataract removal, abdominal surgery for an "blockage," and pacemaker placement. PAST HOSPITALIZATIONS: Surgeries/procedures as listed, strokes, childbirth, foot fracture. FAMILY MEDICAL HISTORY: Ms. Vera's father is . His medical history included coronary artery disease with two myocardial infarctions and renal failure. The patient's mother is . Her only known medical history is skin cancer. The patient's brother is from an unknown lung disease. Ms. Vera has one child, a daughter, from sepsis/shock. SOCIAL HISTORY: Ms. Vera is a . She is retired. The patient does report a remote history of tobacco use, but quit smoking cigarettes 40 years ago. The patient reports occasional alcohol use. Ms. Vera does not endorse current or prior recreational drug use. HOME MEDICATIONS: Ascorbic acid 500 mg by mouth daily, aspirin 81 mg by mouth daily, atorvastatin 40 mg by mouth at bedtime daily, Coreg 3.125 mg by mouth daily, ferrous sulfate 325 mg by mouth daily, Lasix 40 mg by mouth daily, glipizide 5 mg by mouth twice daily, Humulin N 23 units subcutaneously daily, levetiracetam 750 mg by mouth twice daily, lisinopril 2.5 mg by mouth daily, Protonix 40 mg by mouth at bedtime daily, Lyrica 25 mg by mouth at bedtime daily, Xarelto 20 mg by mouth daily, Senna-Lax 8.6 mg by mouth daily as needed for constipation, coenzyme Q10 100 mg by mouth daily. HOSPITAL MEDICATIONS: Tylenol, vitamin C, aspirin, atorvastatin, Coreg, ceftriaxone, Lasix, glipizide, hydralazine, Humulin R, levetiracetam, lisinopril, Zofran, Protonix, Lyrica, Xarelto, Senokot. ALLERGIES: PENICILLIN, METFORMIN. NO KNOWN FOOD ALLERGIES. NO KNOWN ALLERGIES TO LATEX. NO KNOWN ALLERGIES TO IODINE OR OTHER CONTRAST MATERIALS. PHYSICAL EXAMINATION: VITAL SIGNS: Height 64 inches, weight 198 pounds, BMI 34.0 kg/m2, blood pressure 133/60 mmHg, pulse 66 beats per minute, respiratory rate 20 breaths per minute, and oxygen saturation 97% on room air. GENERAL: The patient is awake and alert, does not appear distressed. Obese. HEENT: Normocephalic, atraumatic. Pupils are surgical. Moist mucous membranes. NECK: Supple. No appreciable thyromegaly. No appreciable carotid bruits. CARDIOVASCULAR: S1, S2, regular rate and rhythm. No murmurs, rubs, or gallops. RESPIRATORY: Clear to auscultation bilaterally. No wheezes, rhonchi, or rales. EXTREMITIES: The skin is warm and dry. No clubbing, cyanosis, or edema. The posterior tibial and dorsalis pedis pulses are 1+ and symmetric. SKIN: No rashes or lesions. NEUROLOGIC: Memory/Attention: The patient is awake and alert. Due to moderate dysarthria and moderate to severe expressive aphasia, orientation cannot be assessed. Cranial Nerves: Cranial nerve I - not tested. Cranial nerve II, III, IV, and - pupils are surgical. Extraocular movements are intact. No nystagmus. Cranial nerve V - sensation to light touch is intact in the bilateral V1 through V3 distributions. Strength of the temporalis and masseter muscles is within normal limits. Cranial nerve VII - the face is symmetric as are all facial movements. Strength is within normal limits. Cranial nerve VIII - hearing is decreased to finger rub bilaterally. Cranial nerve IX, X-the soft palate elevates equally and symmetrically. Cranial nerve XI - normal strength of the bilateral sternocleidomastoid and trapezius muscles. Cranial nerve XII-the tongue protrudes midline and moves symmetrically from [id number]. Strength: Bulk is normal. Strength is 5/5 in the left deltoid, biceps, triceps, wrist flexors and extensors, finger flexors and extensors, intrinsic hand muscles, hip flexors, knee flexors and extensors, ankle dorsiflexion and plantar flexion, and intrinsic foot muscles. Tone is normal in the left arm and left leg. Strength is 4 to 4+ out of five in the right arm and right leg with increased tone in the right arm and right leg. DTRs: Deep tendon reflexes are 1+ at the left triceps, biceps, and brachioradialis. Deep tendon reflexes are 2+ at the right triceps, biceps, and brachioradialis. Deep tendon reflexes are trace and symmetric at the patellas. Deep tendon reflexes are absent and symmetric at the Achilles. Plantar responses are flexor on the left and mute on the right. Sensation: Sensation is diminished to light touch over the left leg. Cerebellar: Deferred. Gait: Deferred. Speech: Spontaneous speech is moderately dysarthric with moderate to severe expressive aphasia. Repetition is not intact. Involuntary movements: None. Pronator Drift: Positive in the right arm and right leg. LABORATORY DATA: A comprehensive metabolic panel is unremarkable. The CBC with differential and platelets reveals a white blood cell count of 5.11 with 62.7% neutrophils, 21.9% lymphocytes, 12.1% monocytes, 2.3% eosinophils, and 0.8% basophils. The hemoglobin and hematocrit are 11.2 and 35.4, respectively. The platelet count is 215. A urinalysis is significant for 11-20 white blood cells with moderate urine bacteria and few urine epithelial cells. A urine culture is pending. DIAGNOSTIC STUDIES: Chest x-ray 04/12/2019: Cardiomegaly and mild interstitial edema. CT of the brain without contrast 04/12/2019: On my review, there is no evidence of recent large territorial ischemia, hemorrhage, mass, or mass effect. Chronic ischemic strokes are seen in the paravermian cerebellum and left middle cerebral artery distribution. There are findings compatible with [id number] chronic small-vessel ischemic disease. There is mild diffuse cerebral atrophy with compensatory dilatation of the ventricles, appropriate for the patient's age. ASSESSMENT AND PLAN: Ms. Vera is an 83-year-old right-hand dominant woman with multiple vascular risk factors, admitted to [facility] under observation status on April 12, 2019, with worsening of baseline neurological deficits in the setting of a urinary tract infection. The patient's neurological examination is significant for moderate dysarthria, moderate to severe expressive aphasia, mild right hemiparesis with increased tone in the right arm and right leg, and brisk deep tendon reflexes over the right arm. The patient's laboratory data and other diagnostic studies have been reviewed and are documented above. Ms. Vera's neurological symptoms may be due to recrudescence of prior deficits in the setting of a urinary tract infection versus a new ischemic stroke in the left middle cerebral artery distribution with cortical involvement. Recommendations are as follows: 1. A CT of the brain without contrast will be repeated on the morning of April 13, 2019, if a new area of ischemia is observed, a complete stroke evaluation will be ordered. If the CT of the brain without contrast does not reveal a new area of ischemia, recommendations are as follows: 1. Continue Rivaroxaban 20 mg by mouth daily for stroke prophylaxis. 2. The patient's goal blood pressure is less than 140/90 mmHg. Continue the patient's home antihypertensive medications. Monitor vital signs per unit protocol and add/adjust antihypertensive medications to goal. 3. The patient's goal total cholesterol is less than 200 with an LDL of less than 70. Continue the patient's home medication of atorvastatin 40 mg by mouth at bedtime daily. Adjust the patient's statin medication to goal. 4. The patient's goal hemoglobin A1c is less than 7.0. Follow up the results of the hemoglobin A1c. Tight glycemic control is recommended while the patient is hospitalized. Management of the patient's diabetes mellitus is deferred to the primary service. 5. Speech and Physical Therapy consultations have been ordered and are pending. 6. GI prophylaxis with Protonix 40 mg by mouth at bedtime daily. DVT prophylaxis with a Rivaroxaban. 7. Continue levetiracetam 750 mg by mouth twice daily for seizure prophylaxis. 8. Continue intravenous antibiotics for the patient's urinary tract infection. Follow up the results of the urine culture. 9. Anticipated disposition: group home facility within 2-3 days. Thank you for this consultation. I will continue to follow the patient while she remains in the hospital. TIME SPENT: 70 minutes. Nora Erwin MD CP/WILLIAM /[id number] SALINAS
--- NOTE | 2019-04-13 05:35 | NUR ---
patient out of room for ct brain via wheel chair at this time.
[2019-04-13] MEDS: CEFTRIAXONE SOD 1 GM/NS 50 ML 50 ML IV SCH ×2 (06:11→18:00)
--- NOTE | 2019-04-13 06:24 | Diagnostic Imaging Report ---
History:Stroke like symptoms. Comparison studies:CT head 04/12/2019 and 12/11/2018 Technique: Axial images were obtained from the skull base to the vertex. Coronal and sagittal images reconstructed from the axial data. Intravenous contrast: None Dose modulation, iterative reconstruction, and/or weight based adjustment of the mA/kV was utilized to reduce the radiation dose to as low as reasonably achievable. Findings: Scalp/skull: No abnormalities. Extra-axial spaces: No masses. No fluid collections. Brain sulci: Mildly prominent. Ventricles: Mild compensatory dilatation. No hydrocephalus. Parenchyma: Left inferior precentral, parietal and posterior temporal cortical based hypodensity with associated volume loss , stable from previous exam. Medial posterior cerebellar hemispheres cortical-based hypodensity with volume loss, stable. Few hypodensities in the supratentorial white matter are small vessel ischemic changes. No masses, hemorrhage, acute or chronic cortical vascular insults. Sellar/suprasellar region: No abnormalities. Craniocervical junction: Patent foramen magnum. No Chiari one malformation. Incidental findings: Atherosclerotic calcifications in the carotid siphons . Impression: No acute abnormalities. Chronic findings: 1. Mild generalized volume loss. 2. Mild supratentorial white matter small vessel ischemic changes. 3. 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 Signed by: DR Derrick Madrid M.D. on 04/13/2019 6:21 AM
[2019-04-13 06:25] LABS: BASOPHILS % 0.5 % (0.0-1.0); EOSINOPHILS # (AUTO) 0.3 (0.0-0.4); EOSINOPHILS % 4.7 % (0.0-6.0); HEMATOCRIT 35.4 % (34.2-44.1); HEMOGLOBIN 10.8 g/dL (12.0-16.0); LYMPHOCYTES # (AUTO) 1.5 (1.0-3.2); LYMPHOCYTES % 27.7 % (18.0-39.1); MEAN CORPUSCULAR HEMOGLOBIN 26.2 pg (28-32); MEAN CORPUSCULAR HGB CONC 30.5 g/dL (31-35); MEAN CORPUSCULAR VOLUME 85.7 fL (81-99); MONOCYTES # (AUTO) 0.7 (0.2-0.8); MONOCYTES % 12.4 % (4.4-11.3); NEUTROPHILS % 54.5 % (38.7-80.0); PLATELET COUNT 202 x10e3/uL (140-360); RED BLOOD COUNT 4.13 x10e6/uL (3.6-5.1); RED CELL DISTRIBUTION WIDTH 18.9 % (11.7-14.4)
[2019-04-13 06:49] LABS: BLOOD UREA NITROGEN 9 mg/dL (7-26); BUN/CREATININE RATIO 11 (6-25); CALCIUM 8.6 mg/dL (8.4-10.2); CARBON DIOXIDE 25 mmol/L (22-29); CHLORIDE 108 mmol/L (98-107); EST GLOMERULAR FILTRATION RATE > 60 ML/MIN (60-); GLUCOSE 85 mg/dL (74-118); SODIUM 141 mmol/L (136-145)
[2019-04-13] MEDS: INSULIN REGULAR, HUMAN 100 UNIT/1 ML 3ML VIAL SQ SCH ×4 (07:30→21:00)
[2019-04-13 07:46] LABS: CHOL/HDL RATIO 3.6 (3.0-3.6); CHOLESTEROL 94 MD/DL (0-199); HDL CHOLESTEROL 26 MG/DL (40-60); LDL CHOLESTEROL 49 MG/DL (60-130); LIPASE 32 U/L (8-78); TRIGLYCERIDES 97 MG/DL (0-149)
[2019-04-13 08:06] LABS: THYROID STIMULATING HORMONE 3.063 uIU/mL (0.350-4.940)
[2019-04-13] MEDS ORDERED: LISINOPRIL 10 MG TAB PO SCH (09:00)
[2019-04-13] MEDS ORDERED: ATORVASTATIN 20 MG TAB PO SCH (09:00)
[2019-04-13] MEDS: CARVEDILOL 3.125 MG TAB PO SCH ×2 (10:05→17:46)
[2019-04-13] MEDS: GLIPIZIDE 5 MG TAB PO SCH ×2 (10:05→17:46)
[2019-04-13] MEDS: FUROSEMIDE 40 MG TAB PO SCH (10:05)
[2019-04-13] MEDS: LEVETIRACETAM 500 MG TAB PO SCH ×2 (10:05→17:46)
[2019-04-13] MEDS: ASPIRIN 81 MG ENTERIC COATED PO SCH (10:05)
[2019-04-13] MEDS: LISINOPRIL 2.5 MG TAB PO SCH (10:06)
[2019-04-13] MEDS: ASCORBIC ACID 500 MG TAB PO SCH (10:06)
--- NOTE | 2019-04-13 15:10 | NUR ---
Visit made by the Spiritual Care Department Pastoral Visitor, Luma Jhaveri. PV provided pastoral presence, prayer, hospitality, and supportive listening. Pastoral Visitor informed pt/family of the scope of [employer] and availability. DONALD JOSE Resident Care Provider Spiritual Care Department O: [phone] Pager: [phone] ([phone] number calling from)
[2019-04-13] MEDS: RIVAROXABAN 20 MG TABLET PO SCH (17:46)
--- NOTE | 2019-04-13 19:39 | NUR ---
Received bedside report from day nurse. Patient resting in bed. No s/s of distress or c/o pain at this time. All safety measures in place. Family at bedside. Will continue to monitor.
--- NOTE | 2019-04-13 20:13 | NUR ---
Patient going to room 176. Called and gave report to receiving nurse. Will prepare patient for transfer.
--- NOTE | 2019-04-13 20:19 | NUR ---
Patient currently leaving unit and being transferred downstairs to room 176. All safety measures in place. All belongings with patient.
--- NOTE | 2019-04-13 20:19 | NUR ---
received report from day nurse. patient is resting comfortably in bed. bed is in lowest position and call machado is within reach. will continue to monitor patient.
[2019-04-13] MEDS: PREGABALIN 25 MG CAP PO SCH (21:24)
[2019-04-13] MEDS: PANTOPRAZOLE SOD 40 MG TABEC PO SCH (21:24)
[2019-04-13] MEDS: ATORVASTATIN 40 MG TAB PO SCH (21:24)
[2019-04-14] VITALS: BP 143/61
[2019-04-14 04:00] VITALS: BP_SYST 143; BP_SYST 149; BP_DIAS 61; BP_DIAS 68
--- NOTE | 2019-04-14 06:53 | NUR ---
Received patient lying in bed with eyes open. Family member at bedside. Respiration even and unlabored without SOB. Call light in reach.
--- NOTE | 2019-04-14 07:10 | NUR ---
Report given to day nurse. patient is resting comfortably in bed. bed is in lowest position and call machado is within reach.
[2019-04-14] MEDS: ASPIRIN 81 MG ENTERIC COATED PO SCH (07:45)
[2019-04-14] MEDS: GLIPIZIDE 5 MG TAB PO SCH (07:45)
[2019-04-14] MEDS: CEFTRIAXONE SOD 1 GM/NS 50 ML 50 ML IV SCH (07:45)
[2019-04-14] MEDS: LEVETIRACETAM 500 MG TAB PO SCH (07:46)
[2019-04-14] MEDS: ASCORBIC ACID 500 MG TAB PO SCH (07:46)
[2019-04-14 08:19] VITALS: BP 140/86
[2019-04-14] MEDS: FUROSEMIDE 40 MG TAB PO SCH (08:32)
[2019-04-14] MEDS: CARVEDILOL 3.125 MG TAB PO SCH (08:32)
[2019-04-14] MEDS: LISINOPRIL 2.5 MG TAB PO SCH (08:32)
[2019-04-14] MEDS: INSULIN REGULAR, HUMAN 100 UNIT/1 ML 3ML VIAL SQ SCH ×2 (08:33→12:55)
[2019-04-14 09:28] VITALS: BP 140/86
--- NOTE | 2019-04-14 10:09 | NUR ---
call placed to attending MD, awaiting call back Addendum: 04/14/19 at 1111 by Elen Meng nasrin feldman returned call, notified her patient is observation status, cleared by neuro, has previous home health and would like an order to resume. SHRUTHI states she will see the patient at 1 and make sure home health will accommodate pt/ot/st
--- NOTE | 2019-04-14 10:11 | NUR ---
spoke to dr. hicks, cleared from her standpoint to DC
--- NOTE | 2019-04-14 12:31 | NUR ---
Spoke to patient and family about home health. Daughter in law states they are not really interested in continuing with [facility]. Gave choices with good speech therapy. Family chooses [facility]. Gave CM's number and copy of choice letter. Clinicals faxed to [facility] at [phone]
--- NOTE | 2019-04-14 15:29 | NUR ---
PIV to left AC discontinued, Catheter tip intact. No bleeding noted. Call light in reach. Patient is to discharge to senior apartment with home health.
--- NOTE | 2019-04-14 15:43 | NUR ---
Transported patient via wheelchair to private vehicle. All belongings are with patient's family member. Respiration even and unlabored without SOB.
--- NOTE | 2019-04-15 03:03 | Discharge Summary ---
CONSULTING PHYSICIAN: Dr. Nora Erwin. PRIMARY CARE PHYSICIAN: Dr. Keon Alvarado. CHIEF COMPLAINT: CVA. ALLERGIES: METFORMIN, PENICILLIN. HOSPITAL COURSE: Ms. Vera is an 83-year-old female with a history of hypertension, hyperlipidemia, diabetes, CAD, AFib, GERD, peptic ulcer disease, secondary seizure disorder, prior strokes with residual dysarthria, expressive aphasia, got admitted on 04/12/2019 with right-sided weakness and possible UTI. On the day of admission, the patient and her son noted worsening of the baseline dysarthria and expressive aphasia with mild confusion. Her CT scan on arrival is negative. Urine culture is negative. While in the hospital, the patient got evaluated by Neurology. She also got evaluated by PT and OT. She received IV Rocephin for 2 days. No fever or chills reported. PHYSICAL EXAMINATION: VITAL SIGNS: Her vital signs includes temperature 96.7, heart rate 83, blood pressure 140/86, respiratory rate 17, and oxygen saturation 97. GENERAL: In no acute distress. LUNGS: Clear to auscultation. CARDIOVASCULAR: Heart rate regular with no murmur. HEENT: Moist mucous membranes. NECK: Supple. ABDOMEN: Soft and nontender. EXTREMITIES: The patient complained of right lower extremity weakness. NEUROLOGICAL: The patient is awake and alert with previous stroke residual dysarthria and expressive aphasia. HOME MEDICATIONS: Lasix 40 mg daily, Protonix 40 mg daily, glipizide 5 mg daily, atorvastatin 40 mg daily, Xarelto 20 mg daily, Keppra 750 mg twice daily, lisinopril 2.5 mg daily, Lyrica 25 mg at bedtime, Coreg 3.125 mg twice daily, and aspirin 81 mg daily. LABORATORY DATA: Sodium 141, potassium 4.0, chloride 108, CO2 25, BUN and creatinine 9/0.80, glucose 85, WBC 5.48, hemoglobin 10.8, hematocrit 35.4, and platelets 202. DIAGNOSES: 1. History of stroke. 2. Hypertension. 3. Type 2 diabetes. 4. Seizure disorder. 5. Hyperlipidemia. 6. Chronic atrial fibrillation. The patient upon discharge is stable and discharging home with home health. Dictated by Renetta Leigh, LEGAL EXAMINER MD SILVIA Gorman/MODL /[id number]
== END 2019-04-14 15:42 | disposition home or self-care (01) ==
LOC: ER 06:50 → ERHOLD 08:17 → MED/SURG3 13:48 → IMCU 04-13 20:20
PROVIDERS: ADMIT Internal Medicine; ATTEND Internal Medicine
DX: I69.351 Hemiplegia and hemiparesis following cerebral infarction affecting right dominant side (principal); I69.322 Dysarthria following cerebral infarction; I69.320 Aphasia following cerebral infarction; E78.5 Hyperlipidemia, unspecified; R26.9 Unspecified abnormalities of gait and mobility; Z87.11 Personal history of peptic ulcer disease; Z79.01 Long term (current) use of anticoagulants; N39.0 Urinary tract infection, site not specified; I12.9 Hypertensive chronic kidney disease with stage 1 through stage 4 chronic kidney disease, or unspecified chronic kidney disease; E11.22 Type 2 diabetes mellitus with diabetic chronic kidney disease; N18.3 Chronic kidney disease, stage 3 (moderate); Z87.891 Personal history of nicotine dependence; I69.398 Other sequelae of cerebral infarction; R56.9 Unspecified convulsions; I25.10 Atherosclerotic heart disease of native coronary artery without angina pectoris; Z95.1 Presence of aortocoronary bypass graft; I48.20 Chronic atrial fibrillation, unspecified
CPT/HCPCS: 36415 ×3; 70450 ×2; 71045; 80048; 80053; 80061; 81001; 82550; 82553; 82948 ×3; 83036; 83690; 84443; 84484; 85025 ×2; 87086; 92523; 93005; 93306; 93880; 93970; 96372 ×2; 97116; 97161; 99284; G0378 ×3; J0696 ×3; J1817 ×2; J7050; S0164 ×2

== ENCOUNTER 2020-01-06 12:59 | Observation (INO) | payer MEDICARE, BC ==
[~2020-01-06] VITALS: Ht 167.6 cm; Wt 83.5 kg
[~2020-01-06 12:59] MED LIST changes: +CEFTIN PO; +GLIPIZIDE5 MG PO; +KEPPRA500 MG PO; -LEVETIRACETAM500 MG; +LEVETIRACETAM500 MG PO; +MIRALAX17 GM PO; +PREPARATION H R28 GM RC; +SIMETHICONE80 MG PO
[2020-01-06] MEDS ORDERED: LINZESS145 MCG (13:18)
[2020-01-06 13:39] LABS: BASOPHILS # (AUTO) 0.1 (0.0-0.1); BASOPHILS % 0.9 % (0.0-1.0); EOSINOPHILS # (AUTO) 0.2 (0.0-0.4); HEMATOCRIT 37.5 % (34.2-44.1); HEMOGLOBIN 12.4 g/dL (12.0-16.0); LYMPHOCYTES % 30.1 % (18.0-39.1); MEAN CORPUSCULAR HEMOGLOBIN 29.6 pg (28-32); MEAN CORPUSCULAR HGB CONC 33.1 g/dL (31-35); MEAN CORPUSCULAR VOLUME 89.5 fL (81-99); MONOCYTES # (AUTO) 0.8 (0.2-0.8); MONOCYTES % 12.2 % (4.4-11.3); NEUTROPHILS # (AUTO) 3.5 (2.1-6.9); NEUTROPHILS % 53.3 % (38.7-80.0); PLATELET COUNT 222 x10e3/uL (140-360); RED BLOOD COUNT 4.19 x10e6/uL (3.6-5.1); RED CELL DISTRIBUTION WIDTH 13.5 % (11.7-14.4)
[2020-01-06 13:46] LABS: INR 1.19; PROTHROMBIN TIME 15.8 seconds (11.9-14.5)
[2020-01-06 13:47] LABS: PARTIAL THROMBOPLASTIN TIME 33.8 seconds (23.8-35.5)
[2020-01-06 13:53] LABS: ALBUMIN 3.4 g/dL (3.5-5.0); ALBUMIN/GLOBULIN RATIO 0.9 (0.8-2.0); ANION GAP 12.7 mmol/L (8-16); CALCIUM 9.2 mg/dL (8.4-10.2); CREATININE, SERUM 0.91 mg/dL (0.57-1.11); POTASSIUM 3.7 mmol/L (3.5-5.1)
[2020-01-06 13:59] LABS: CREATINE KINASE MB 3.3 ng/mL (0-5.0)
[2020-01-06] MEDS ORDERED: LEVETIRACETAM 500MG/5ML VIAL 1,000 MG in SODIUM CHLORIDE 0.9% 100 ML 100 ML IV ONE (14:00)
[2020-01-06 14:22] LABS: CLARITY,URINE CLEAR (CLEAR); COLOR,URINE YELLOW (YELLOW); LEUKOCYTE ESTERASE ,URINE NEGATIVE (NEGATIVE); NITRITE,URINE NEGATIVE (NEGATIVE); PROTEIN,URINE DIPSTICK NEGATIVE (NEGATIVE)
--- NOTE | 2020-01-06 14:22 | Diagnostic Imaging Report ---
CT BRAIN WO HISTORY: History of CVA, seizure, fall COMPARISON: Head CT 07/03/2019 Technique: Noncontrast axial scans were obtained from skull base to the vertex. Coronal and sagittal reconstructions obtained from the axial data. One or more of the following dose reduction techniques were used: Automated exposure control, adjustment of the mA and/or kV according to patient size, and/or utilization of iterative reconstruction technique. DISCUSSION: Scalp/Skull: Unremarkable. Brain sulci: Mildly prominent. Ventricles: Compensatory dilatation. Extra-axial spaces: No masses or fluid collections. Carotid and vertebral artery calcifications are present. 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 Mild bilateral deep white matter hypodensity is likely chronic microvascular ischemic change. Otherwise, no masses, hemorrhage, or large vascular territory acute infarct. Dural sinuses: No abnormal densities. Sellar/Suprasellar region: Intact. Skull base: Intact. Incidental findings: Bilateral ocular lens replacement. IMPRESSION: 1. No acute intracranial abnormalities. 2. No significant change compared to head CT dated 07/03/2019. 3. 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 4. 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 5. Mild supratentorial chronic microvascular ischemic change. Mild generalized cerebral volume loss. Signed by: Dr. Jose Freeman M.D. on 01/06/2020 2:18 PM
[2020-01-06 14:23] LABS: AMPHETAMINES SCREEN,URINE NEGATIVE (NEGATIVE); BENZODIAZEPINES SCREEN,URINE NEGATIVE (NEGATIVE); BILIRUBIN,URINE NEGATIVE (NEGATIVE); KETONES,URINE NEGATIVE (NEGATIVE); PHENCYCLIDINE SCREEN,URINE NEGATIVE (NEGATIVE); URINE UROBILINOGEN 0.2 mg/dL (0.2 - 1)
--- NOTE | 2020-01-06 14:38 | Diagnostic Imaging Report ---
X-ray chest AP portable Comparison: None History: Right arm and leg pain. Rule out CVA. Findings: Left subclavian route single-chamber pacer. Status post median sternotomy and CABG. Central airways unremarkable. Cardiomegaly. Atherosclerotic ectatic aorta. No pleural effusion. No pneumothorax. No definite focal lung disease to the extent seen. Visualized skeletal structures show no acute abnormality. Upper abdomen unremarkable. Impression: Cardiomegaly. No other acute cardiopulmonary disease. Signed by: Chad Mixon MD on 01/06/2020 2:35 PM
--- NOTE | 2020-01-06 14:49 | Emergency Department Note ---
History of Present Illnes History of Present Illness Chief Complaint: Neurological History of Present Illness This is a 84 year old female arrived to the ED with multiple seizures and right arm/leg pain . 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 Any updates have been documented here. Past Medical History Recent Fever: No Clinical Suspicion of Infectio: No New/Unexplained Change in Ment: No Past Medical History: Hypertension, Diabetes, A-Fib, CAD, Seizure Disorder, GERD, Hyperlipedemia, Chronic Kidney Disease Other Medical History: STROKE Past Surgical History: Cholecysctectomy, Appendectomy, Pacer/AICD, Cataract Removal Other Surgery: QUADRUPLE BYPASS Social History Smoking Cessation: Never Smoker Counseling Performed: No Alcohol Use: None Any Illegal Drug Use: No Physically hurt or threatened: No Other Last Tetanus: UNKNOWN Any Pre-Existing Lines (PICC,: No Review of Systems Review of Systems Constitutional: Reports no symptoms EENTM: Reports no symptoms Cardiovascular: Reports no symptoms Respiratory: Reports no symptoms Gastrointestinal: Reports no symptoms Genitourinary: Reports no symptoms Musculoskeletal: Reports no symptoms Integumentary: Reports no symptoms Neurological: Reports as per HPI, Reports seizure Psychological: Reports no symptoms Endocrine: Reports no symptoms Hematological/Lymphatic: Reports no symptoms Physical Exam Related Data Allergies: Coded Allergies: Penicillins (Verified Adverse Reaction, Mild, "SICK", 12/04/18) metformin (Verified Adverse Reaction, Mild, DIZZY, 12/04/18) Triage Vital Signs Vital Signs Date Time Temp Pulse Resp B/P (MAP) Pulse Ox O2 Delivery O2 Flow Rate FiO2 01/06/20 13:05 98.2 78 18 157/62 99 Room Air Vital signs reviewed: Yes Physical Exam CONSTITUTIONAL Constitutional: Present well-developed, Present well-nourished HENT HENT: Present normocephalic, Present atraumatic, Present oropharynx clear/moist, Present nose normal HENT L/R: Present left ext ear normal, Present right ext ear normal EYES Eyes: Reports PERRL, Reports conjunctivae normal NECK Neck: Present ROM normal PULMONARY Pulmonary: Present effort normal, Present breath sounds normal CARDIOVASCULAR Cardiovascular: Present regular rhythm, Present heart sounds normal, Present capillary refill normal, Present normal rate GASTROINTESTINAL Abdominal: Present soft, Present nontender, Present bowel sounds normal GENITOURINARY Genitourinary: Present exam deferred SKIN Skin: Present warm, Present dry MUSCULOSKELETAL Musculoskeletal: Present ROM normal NEUROLOGICAL Neurological: Present alert, Present no gross motor or sensory deficits PSYCHOLOGICAL Psychological: Present mood/affect normal, Present judgement normal Results Laboratory Result Diagram: 01/06/20 1312 01/06/20 1312 Laboratory Laboratory Tests Test 01/06/20 13:45 01/06/20 13:12 Urine Color Yellow (YELLOW) Urine Clarity Clear (CLEAR) Urine pH 7 (5 - 7) Urine Specific [place] 1.015 (1.010-1.025) Urine Protein Negative (NEGATIVE) Urine Glucose (UA) Negative (NEGATIVE) Urine Ketones Negative (NEGATIVE) Urine Blood Negative (NEGATIVE) Urine Nitrite Negative (NEGATIVE) Urine Bilirubin Negative (NEGATIVE) Urine Urobilinogen 0.2 mg/dL (0.2 - 1) Urine Leukocyte Esterase Negative (NEGATIVE) Urine RBC None /HPF (0-5) Urine WBC None /HPF (0-5) Urine Epithelial Cells None /LPF (NONE) Urine Bacteria None /HPF (NONE) Urine Opiates Screen Negative (NEGATIVE) Urine Methadone Screen Negative (NEGATIVE) Urine Barbiturates Screen Negative (NEGATIVE) Urine Phencyclidine Screen Negative (NEGATIVE) Urine Amphetamines Screen Negative (NEGATIVE) Urine Methamphetamines Screen Negative (NEGATIVE) Urine Benzodiazepines Screen Negative (NEGATIVE) Urine Cocaine Screen Negative (NEGATIVE) Urine Cannabinoids Screen Negative (NEGATIVE) White Blood Count 6.58 x10e3/uL (4.8-10.8) Red Blood Count 4.19 x10e6/uL (3.6-5.1) Hemoglobin 12.4 g/dL (12.0-16.0) Hematocrit 37.5 % (34.2-44.1) Mean Corpuscular Volume 89.5 fL (81-99) Mean Corpuscular Hemoglobin 29.6 pg (28-32) Mean Corpuscular Hemoglobin Concent 33.1 g/dL (31-35) Red Cell Distribution Width 13.5 % (11.7-14.4) Platelet Count 222 x10e3/uL (140-360) Neutrophils (%) (Auto) 53.3 % (38.7-80.0) Lymphocytes (%) (Auto) 30.1 % (18.0-39.1) Monocytes (%) (Auto) 12.2 % (4.4-11.3) Eosinophils (%) (Auto) 3.0 % (0.0-6.0) Basophils (%) (Auto) 0.9 % (0.0-1.0) Neutrophils # (Auto) 3.5 (2.1-6.9) Lymphocytes # (Auto) 2.0 (1.0-3.2) Monocytes # (Auto) 0.8 (0.2-0.8) Eosinophils # (Auto) 0.2 (0.0-0.4) Basophils # (Auto) 0.1 (0.0-0.1) Absolute Immature Granulocyte (auto 0.03 x10e3/uL (0-0.1) Prothrombin Time 15.8 seconds (11.9-14.5) Prothromb Time International Ratio 1.19 Activated Partial Thromboplast Time 33.8 seconds (23.8-35.5) Sodium Level 139 mmol/L (136-145) Potassium Level 3.7 mmol/L (3.5-5.1) Chloride Level 103 mmol/L (98-107) Carbon Dioxide Level 27 mmol/L (22-29) Anion Gap 12.7 mmol/L (8-16) Blood Urea Nitrogen 18 mg/dL (7-26) Creatinine 0.91 mg/dL (0.57-1.11) Estimat Glomerular Filtration Rate 59 ML/MIN (60-) BUN/Creatinine Ratio 20 (6-25) Glucose Level 108 mg/dL (74-118) Calcium Level 9.2 mg/dL (8.4-10.2) Total Bilirubin 0.5 mg/dL (0.2-1.2) Aspartate Amino Transf (AST/SGOT) 21 IU/L (5-34) Alanine Aminotransferase (ALT/SGPT) 20 IU/L (0-55) Alkaline Phosphatase 96 IU/L (40-150) Creatine Kinase 175 IU/L (29-168) Creatine Kinase MB 3.30 ng/mL (0-5.0) Troponin I 0.014 ng/mL (0-0.300) Total Protein 7.4 g/dL (6.5-8.1) Albumin 3.4 g/dL (3.5-5.0) Globulin 4.0 g/dL (2.3-3.5) Albumin/Globulin Ratio 0.9 (0.8-2.0) Assessment & Plan Medical Decision Making MDM 84-year-old female arrived to the ED with multiple seizures, patient taking lower dose of Keppra then instructed. Patient's seizures may be secondary to nontherapeutic Keppra level. Assessment & Plan Final Impression: (1) Seizure (2) Weakness Depart Disposition: ADMITTED Last Vital Signs Date Time Temp Pulse Resp B/P (MAP) Pulse Ox O2 Delivery O2 Flow Rate FiO2 01/06/20 14:15 63 16 135/54 100 Room Air 01/06/20 13:05 98.2 Home Meds Active Scripts Ascorbic Acid (ASCORBIC ACID) 500 Mg Tablet, 500 MG PO DAILY, #30 TAB Prov:ABIMAEL DE LA O NP 01/06/19 Ferrous Sulfate (FERROUS SULFATE) 325 Mg Tablet., 325 MG PO DAILY for 30 Days Prov:ABIMAEL DE LA O NP 01/06/19 Aspirin (ASPIRIN EC) 81 Mg Tablet.dr, 81 MG PO QAM for 30 Days Prov:ABIMAEL DE LA O NP 12/13/18 Rivaroxaban (XARELTO) 10 Mg Tablet, 20 MG PO QD17 for 30 Days Prov:ABIMAEL DE LA O NP 12/13/18 Furosemide (LASIX) 40 Mg Tablet, 40 MG PO DAILY for 30 Days, #30 TAB Prov:KENDALL DAWSON DO 12/04/18 Reported Medications Linaclotide (Linzess) 145 Mcg Capsule, 0 01/06/20 Levetiracetam (KEPPRA) 500 Mg Tablet, 1250 MG PO BID, TAB 06/30/19 Polyethylene Glycol 3350 (MIRALAX) 17 Gm Powd.pack, 17 MG PO PRN 06/29/19 Lidocaine/Phenyl/Glycer/Petrol (Preparation H Rapid-Lido Cream) 28 Gm Cream..g., 28 MG RC PRN 06/29/19 Simethicone (SIMETHICONE) 80 Mg Chew, 125 MG PO PRN, #30 TAB 06/29/19 Glipizide (GLIPIZIDE) 5 Mg Tablet, 5 MG PO BID, TAB 04/12/19 Insulin Human Nph (HUMULIN N) 100 Units/Ml Ml, 23 UNITS SQ DAILY 01/04/19 Ubidecarenone (COQ-10) 100 Mg Capsule, DAILY 12/12/18 Pregabalin (LYRICA) 25 Mg Cap, 25 MG PO HS, #30 CAP 12/12/18 Carvedilol (COREG) 3.125 Mg Tab, PO BID 12/12/18 Pantoprazole Sodium* (PROTONIX) 40 Mg Tablet.dr, 40 MG PO HS, TAB 12/12/18 Lisinopril (LISINOPRIL) 10 Mg Tablet, 2.5 MG PO DAILY, #30 TAB 06/09/14 Atorvastatin Calcium (ATORVASTATIN CALCIUM) 20 Mg Tablet, 40 MG PO DAILY 06/09/14 Discontinued Reported Medications Sennosides (SENNA LAX) 8.6 Mg Tablet, 8.6 MG PO DAILY PRN for CONSTIPATION 01/04/19 Discontinued Scripts [Ceftin] No Conflict Check, 500 MG PO Q12HR for 10 Days Prov:ABIMAEL DE LA O DISTRICT OPERATIONS MANAGER 06/30/19 Medications in the ED Levetiracetam 1000 mg/Sodium Chloride 110 ml @ 440 mls/hr ONCE ONCE IV Last administered on 01/06/20at 14:15; Admin Dose 440 MLS/HR; Start 01/06/20 at 14:00; Stop 01/06/20 at 14:14; Status DC KENDALL DAWSON DO Jan 06, 2020 14:49
[2020-01-06 17:30] VITALS: BP 131/93
[2020-01-06 18:05] VITALS: BP 131/93
--- NOTE | 2020-01-06 18:34 | NUR ---
PATIENT ARRIVED TO ROOM 215 FROM ER AT 1715 IN STABLE CONDITION. IV LINE TO LEFT FOREARM 18G IS PATENT, SALINE FLUSHED. PATIENT IS APHASIC, WAS ABLE TO WRITE DOWN NAME AND . BLANCHABLE REDNESS NOTED TO SACRUM. ORIENTED TO ROOM AND POLICIES. CALL LIGHT WITHIN REACH. BED IN THE LOWEST POSITION. BED ALARM ON.
--- NOTE | 2020-01-06 18:36 | NUR ---
HOME MEDICATIONS REVIEWED BY ER NURSE.
[2020-01-06 18:38] VITALS: BP 131/93
--- NOTE | 2020-01-06 19:17 | NUR ---
BEDSIDE SHIFT REPORT GIVEN TO ONCOMING NURSE. PATIENT IS RESTING IN BED, NO S/S OF DISTRESS NOTED. CALL LIGHT WITHIN REACH. BED IN THE LOWEST POSITION. BED ALARM ON.
[2020-01-06 20:00] VITALS: BP 164/74
[2020-01-06 21:45] VITALS: BP 164/74
[2020-01-07] VITALS (7 sets, daily range): BP systolic 101–136; BP diastolic 52–65
[2020-01-07 05:00] LABS: BASOPHILS % 0.5 % (0.0-1.0); EOSINOPHILS # (AUTO) 0.3 (0.0-0.4); EOSINOPHILS % 4.2 % (0.0-6.0); HEMATOCRIT 35.2 % (34.2-44.1); HEMOGLOBIN 11.5 g/dL (12.0-16.0); LYMPHOCYTES # (AUTO) 1.8 (1.0-3.2); LYMPHOCYTES % 30.2 % (18.0-39.1); MEAN CORPUSCULAR HEMOGLOBIN 30.2 pg (28-32); MEAN CORPUSCULAR HGB CONC 32.7 g/dL (31-35); MEAN CORPUSCULAR VOLUME 92.4 fL (81-99); MONOCYTES # (AUTO) 0.8 (0.2-0.8); MONOCYTES % 12.9 % (4.4-11.3); NEUTROPHILS # (AUTO) 3.1 (2.1-6.9); NEUTROPHILS % 51.9 % (38.7-80.0); PLATELET COUNT 194 x10e3/uL (140-360); RED BLOOD COUNT 3.81 x10e6/uL (3.6-5.1); RED CELL DISTRIBUTION WIDTH 13.5 % (11.7-14.4)
[2020-01-07 05:17] LABS: ALANINE AMINOTRANSFERASE 18 IU/L (0-55); ALBUMIN 2.9 g/dL (3.5-5.0); ALBUMIN/GLOBULIN RATIO 0.9 (0.8-2.0); ALKALINE PHOSPHATASE 81 IU/L (40-150); ANION GAP 12.1 mmol/L (8-16); BLOOD UREA NITROGEN 14 mg/dL (7-26); BUN/CREATININE RATIO 17 (6-25); CALCIUM 8.5 mg/dL (8.4-10.2); CARBON DIOXIDE 29 mmol/L (22-29); CHLORIDE 106 mmol/L (98-107); CREATININE, SERUM 0.83 mg/dL (0.57-1.11); EST GLOMERULAR FILTRATION RATE > 60 ML/MIN (60-); GLUCOSE 126 mg/dL (74-118); POTASSIUM 4.1 mmol/L (3.5-5.1); SODIUM 143 mmol/L (136-145)
--- NOTE | 2020-01-07 06:45 | NUR ---
Patient endorsed to next shift for continuity of care.
--- NOTE | 2020-01-07 08:58 | NUR ---
PT ON SERVICE WITH [facility] [phone]
[2020-01-07] MEDS ORDERED: POLYETHYLENE GLYCOL 3350 17 GM PACK PO PRN (09:15)
[2020-01-07 09:47] LABS: CHOL/HDL RATIO 4.1 (3.0-3.6)
[2020-01-07 10:15] LABS: THYROID STIMULATING HORMONE 2.923 uIU/mL (0.350-4.940)
[2020-01-07] MEDS ORDERED: DEXTROSE 50% SYRINGE 50 ML IV PRN (10:45)
[2020-01-07] MEDS ORDERED: CEFDINIR300 MG PO (10:54)
[2020-01-07] MEDS ORDERED: CEFTRIAXONE SOD 1 GM/NS 50 ML 50 ML IV SCH (11:00)
--- NOTE | 2020-01-07 11:24 | NUR ---
Spoke with Dr. Carroll who states he is coming to see patient
[2020-01-07] MEDS ORDERED: INSULIN LISPRO 100 UNIT/1 ML 3ML VIAL SQ SCH (11:30)
--- NOTE | 2020-01-07 13:47 | NUR ---
Called and spoke to Mayuri at [facility] and informed her that pt is currently in OBS status. Anticipate dc today.
[2020-01-07] MEDS ORDERED: TRILEPTAL300 MG PO (15:29)
[2020-01-07] MEDS ORDERED: RIVAROXABAN 10 MG TABLET PO SCH (17:00)
[2020-01-07] MEDS ORDERED: OXCARBAZEPINE 300 MG TAB PO SCH (17:00)
[2020-01-07] MEDS ORDERED: CARVEDILOL 3.125 MG TAB PO SCH (17:00)
[2020-01-07] MEDS ORDERED: LEVETIRACETAM 500 MG TAB PO SCH (17:00)
[2020-01-07] MEDS ORDERED: RIVAROXABAN 20 MG TABLET PO SCH (17:00)
--- NOTE | 2020-01-07 18:30 | Consultation ---
DATE OF CONSULTATION: Neurology Consultation HISTORY OF PRESENT ILLNESS: An 84-year-old female with a history of stroke and seizures, comes in after having cluster of seizures reportedly 8 at home. She has known past medical history of seizure disorder, dementia, chronic kidney disease, hypertension, stroke with aphasia, type 2 diabetes, and atrial fibrillation. No history of tobacco, alcohol, or drugs. Does have a pacemaker. She is aphasic and has no acute complaints at this time other than the seizure. She denies shortness of breath. Denies chest pain, but the she is in a chair and has difficulty moving, so there might be some leg or joint pain. PHYSICAL EXAMINATION: VITAL SIGNS: Today, temperature 96.9, blood pressure is 132/65, pulse is 79 and regular. HEENT: Extraocular muscles are intact. Face appears normal. There are no contusions or rashes of the brain. NECK: Supple. CARDIOVASCULAR: Paced, but slightly irregular in the 70s. ABDOMEN: Soft and nontender with no distention. EXTREMITIES: No edema or cyanosis is noted. SKIN: Warm and dry. NEUROLOGICAL: She is awake. She is alert. She is oriented only at times herself and she knows she is in the hospital. She has some expressive aphasia, but she responds to questions with yes or no, although she shakes her head and nods her head. She moves upper and lower extremities. She does have a noted right hemibody weakness and drift. The left hemibody is within normal limits. She has a left MCA type syndrome. Sensory is grossly intact. bilaterally. Reflexes are symmetrical. Toes are upgoing bilaterally. ASSESSMENT AND PLAN: The patient with history of seizures, comes in with breakthrough seizures. She was loaded with Keppra. CT scan looks unchanged. Outpatient evaluation for possible addition of carbamazepine is warranted if she can tolerate the medication. PT/OT followup and rehabilitation evaluation is also warranted. From neurological perspective, other than discontinuing the Keppra at the current dose, possibly increasing the dose to 1000 b.i.d. is warranted, but no other acute neurological changes at this time, though it is warranted. She does have no history of seizures. She might need a rescue medication at home and outpatient followup with Neurology. If she has difficulty with maintaining seizure control in the future, a vagal nerve stimulator may also be warranted to help prevent a few breakthrough seizures. However, given this is a cortical seizure event, given the history of stroke, carbamazepine has been shown to have better effect in controlling cortical seizures. I will initiate a very low dose at night to see if that helps with seizure prevention 100 mg twice daily. Outpatient followup is warranted in 3 to 6 weeks. MD ROSANNE MERAZ/WILLIAM /[id number]
--- NOTE | 2020-01-07 19:35 | Discharge Summary ---
ADMISSION DIAGNOSES: 1. Seizures. 2. CKD3. 3. Hypertension with CKD3. 4. Type 2 diabetes with CKD3. 5. Atrial fibrillation. 6. Dementia. 7. Past medical history of hypothyroidism, hyperlipidemia. DISCHARGE DIAGNOSES: 1. Seizures. 2. CKD3. 3. Hypertension with CKD3. 4. Type 2 diabetes with CKD3. 5. Atrial fibrillation. 6. Dementia. 7. Past medical history of of hypothyroidism, hyperlipidemia. 8. Rule out DVT plus right lower extremity cellulitis. HISTORY: Dementia, seizure, CKD3, hypertension, CVA with aphasia, hyperlipidemia, type 2 diabetes, CAD, atrial fibrillation, GERD, PUD, hypothyroidism. SURGICAL HISTORY: Pacemaker placement, PCI, CABG x4 vessel, cholecystectomy, appendectomy. FAMILY HISTORY: The patient's mom has cancer. The patient's dad had a heart attack. SOCIAL HISTORY: Noncontributory. The patient quit smoking cigarettes around age 39. HOSPITAL COURSE: An 84-year-old female admits with complaints of eight consecutive seizures per her 's report. HPI is limited due to past medical history of CVA with aphasia. Due to [facility] policies, no one is with the patient. HPI and past medical history from previous records. On admission, CT of the brain was done, which showed no acute abnormalities. Chest x-ray showed cardiomegaly. No other acute CV disease. The patient's UA was negative. Urine drug screen negative. Neurology was consulted who started the patient on Trileptal. The patient had a very mild right lower extremity cellulitis and pain, so she was started on Rocephin and given a prescription for Omnicef at discharge. The venous Doppler was negative for DVT. She will follow up with Neurology in 1 to 2 weeks and primary care in 1 to 2 weeks. At the time of discharge. vital signs stable. The patient is afebrile. Dictated by Renetta Leigh NP MD SILVIA Gorman/MODL /[id number]
--- OUTSIDE RECORDS SUMMARY | 2020-01-07 20:38 | XMS REPORT | Continuity of Care Document ---
Author Author [employer] Organization [employer] Address Unknown Phone Unavailable Care Team Providers Care Human Resources Director Name Role Phone [employer] Unavailable Un available Problems Problem Status Onset Date Classification Date Reported Comments Source Metabolic disorder, unspecified Active Problem 11/2018 [facility] S/P cholecystectomy Active Problem 11/12/2018 [facility] Diabetic polyneuropathy associated with type 2 diabetes mellitus Active Prob gildardo 11/12/2018 [facility] Late effect of cerebrovascular accident (CVA) Active Problem 11/12/2018 [facility] Cardiac pacemaker in situ Acti ve Problem 11/2018 [facility] 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) Active Prob gildardo 11/12/2018 [facility] Flu vaccine need Active Problem 11/12/2018 [facility] 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 Active Problem 11/12/2018 [facility] Constipated Active Problem 11/12/2018 [facility] Iron deficiency anemia, unspecified iron deficiency anemia type Active Prob gildardo 11/12/2018 [facility] Other obesity due to excess calories Active Problem 11/2018 [facility] Body mass index (BMI) of 30.0-30.9 in adult Active Problem 11/12/2018 [facility] Coronary artery disease involving [place] coronary artery of [place] heart without angina pectoris Active Problem 11/12/2018 [facility] HTN (hypertension) Active Problem 11/12/2018 [facility] Type 2 diabetes mellitus with other circ ulatory complication, without long-term current use of insulin Active Problem 11/12/2018 [facility] Cerebrovascular accident (CVA), unspecified mechanism Active Problem 11/12/2018 [facility] Peptic ulcer disease Active Problem 11/12/2018 [facility] 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) Active Prob gildardo 11/12/2018 [facility] Vertigo Active Problem 11/12/2018 [facility] Localized edema Active Problem 11/12/2018 [facility] Acute on chronic systolic congestive heart failure Active Problem 11/12/2018 [facility] A-fib Active Problem 11/12/2018 [facility] Gastrointestinal hemorrhage associated w ith chronic gastritis Active Prob gildardo 11/12/2018 [facility] Expressive aphasia Active Diagnosis 09/02/2018 [facility] Chronic atrial fibrillation Ac tive Diagnosis 0 09/02/2018 [facility] Essential hypertension Active Diagnosis 09/02/2018 [facility] Type 2 diabetes mellitus with hyperglycemia Active Diagnosis 09/02/2018 [facility] Essential (primary) hypertension Active Problem [facility] Type 2 diabetes mellitus without complications Active Problem 05/27/2017 [facility] Cough Active Diagnosis 03/19/2017 [facility] Urinary frequency Active Diagnosis 09/24/2017 [facility] Acute cerebrovascular accident Active Diagnosis 0 01/08/2018 [facility] Iron deficiency anemia Active Diagnosis 01/08/2018 [facility] Acute constipation Active Diagnosis 07/02/2018 [facility] Candidal intertrigo Active Diagnosis 06/18/2018 [facility] Bloody stool Active Diagnosis 06/18/2018 [facility] Cystitis Active Diagnosis 06/18/2018 [facility] Medications Medication Details Route Status Patient Instructions Ordering Provider Order Date Source spironolactone 1 tab(s) orally Active 25 mg orally once a day [facility] 11/11/2018 [facility] senna 1 tab(s) orally Active 8.6 mg orally once a da y (at bedtime) [facility] 07/13/2018 [facility] lisinopril 1 tab(s) orally Active 2.5 mg orally once a da y [facility] 06/10/2018 [facility] cephalexin 1 cap(s) orally Active 500 mg orally every 12 hours [facility] 06/10/2018 [facility] Lotrimin AF Cream 1 torsten applied topically Active 1% applied topically 2 times a day [facility] 06/10/2018 [facility] lisinopril 1 tab(s) orally Active 5 mg orally once a day [facility] 06/10/2018 [facility] fluconazole 1 tab(s) orally Active 150 mg orally once [facility] 06/10/2018 [facility] glipizide 1 tab(s) orally Active 10 mg orally Twice a da y [facility] 01/10/2018 [facility] Colace 1 cap(s) orally Active sodium 100 mg orally On ce daily [facility] 01/05/2018 [facility] Coreg 1 tab(s) orally Active 3.125 mg orally 2 times a day [facility] 09/17/2017 [facility] simethicone 1 tab(s) chewed Active 80 mg chewed 4 times a day (after meals and at bedtime) [facility] 09/17/2017 [facility] Warfarin Sodium Take one half orally Active 1 mg orally along with the 6 mg tablet once a day for [facility] 07/02/2017 [facility] furosemide 1 tab(s) orally Active 20 mg orally once a day [facility] 06/18/2017 [facility] gabapentin 1 cap(s) orally Active 300 mg orally Once at n ight [facility] 06/18/2017 [facility] Coumadin 1 tab(s) orally Active 6 mg orally once a day [facility] 04/17/2017 [facility] benzonatate 1 cap(s) orally Active 100 mg orally 3 times a day [facility] 03/12/2017 [facility] Warfarin Sodium 1 tab(s) orally Active 4 mg orally once a day [facility] 02/06/2017 [facility] hydrochlorothiazide-triamterene 1 cap(s) orally Active 25 mg-37.5 mg orally once a day [facility] 01/15/2017 [facility] Coumadin 1 tab(s) orally Active 2 mg orally once a day [facility] 01/15/2017 [facility] Xarelto 1 tab(s) orally Active 10 mg orally once a day [facility] 11/18/2016 [facility] furosemide 1 tab(s) orally Active 20 mg orally once a day [facility] 11/18/2016 [facility] Xarelto 1 tab(s) orally Active 10 mg orally once a day [facility] 11/18/2016 [facility] furosemide 1 tab(s) orally Active 20 mg orally once a day [facility] 11/18/2016 [facility] Humulin N 20 units subcutaneously Active human recombinant 100 units/mL subcutaneously Once daily [facility] 10/28/2016 [facility] lisinopril 1 tab(s) orally Active 5 mg orally once a day [facility] 10/28/2016 [facility] Humulin N 20 units subcutaneously Active human recombinant 100 units/mL subcutaneously Once daily [facility] 10/28/2016 [facility] lisinopril 1 tab(s) orally Active 5 mg orally once a day [facility] 10/28/2016 [facility] Levemir 20 units subcutaneously Active 100 units/mL subcutaneously Once daily [facility] 09/30/2016 [facility] Januvia 1 tab(s) orally Active 100 mg orally once a da y [facility] 09/02/2016 [facility] Ultram 1 tab(s) orally Active 50 mg orally every 6 ho urs PRN [facility] 07/15/2016 [facility] Ultram 1 tab(s) orally Active 50 mg orally every 6 ho urs PRN [facility] 07/15/2016 [facility] furosemide 1 tab(s) orally Active 40 mg orally once a day [facility] 06/24/2016 [facility] furosemide 1 tab(s) orally Active 40 mg orally once a day [facility] 06/24/2016 [facility] Plavix 1 tab(s) orally No Longer Active 75 mg orally once a day [facility] 06/24/2016 [facility] pantoprazole 1 tab(s) orally Active 40 mg orally once a day [facility] 05/27/2016 [facility] pantoprazole 1 tab(s) orally Active 40 mg orally once a day [facility] 05/27/2016 [facility] furosemide 1 tab(s) orally No Longer Active 20 mg orally once a day [facility] 05/27/2016 [facility] Eliquis 1 tab(s) orally Active 2.5 mg orally 2 times a day [facility] 04/24/2016 [facility] levetiracetam 1 tab(s) orally Active 500 mg orally 2 times a day [facility] 09/09/2014 [facility] levetiracetam 1 tab(s) orally Active 500 mg orally 2 times a day [facility] 09/09/2014 [facility] levothyroxine 1 tab(s) orally Active 25 mcg (0.025 mg) orall y once a day [facility] 05/03/2014 [facility] levothyroxine 1 tab(s) orally Active 25 mcg (0.025 mg) orall y once a day [facility] 05/03/2014 [facility] Lyrica TAKE 1 CAPSULE BY MOUTH ONCE DAILY NA Active 25 MG [facility] Lyrica 1 cap(s) orally Active 25 mg orally once a day [facility] glipizide 1 tab(s) orally Active 10 mg orally Twice a da y [facility] atorvastatin 1 tab(s) orally Active 40 mg orally once a day (at bedtime) [facility] ferrous fumarate 1 tab(s) orally Active 325 mg orally once a da y [facility] MiraLax 17 g orally Active - orally once a day [facility] Savaysa 1 tab(s) orally Active 30 mg orally once a day [facility] gabapentin 1 cap(s) orally Active 300 mg orally Once cayden y [facility] Eliquis 1 tab(s) orally Active 2.5 mg orally 2 times a day [facility] Co Q-10 1 cap(s) orally Active 100 mg orally once a da y [facility] Humulin N INJECT 20 UNITS SUBC UTANEOUSLY ONCE DAILY NA Active 100U/ML [facility] lisinopril 1 tab(s) orally Active 2.5 mg orally once a da y [facility] Co Q-10 1 cap(s) orally Active 100 mg orally once a da y [facility] furosemide 1 tab(s) orally Active 40 mg orally once a day [facility] atorvastatin 1 tab(s) orally Active 40 mg orally once a day [facility] levetiracetam TAKE 1 TABLET BY MOUTH TWICE DAILY orally Active 750 mg orally 2 times a day [facility] triamterene/hctz TAKE 1 TABLET BY MOUTH ONCE DAILY NA Active 25 mg-37.5 mg [facility] Fish Oil 1 cap(s) orally Active 1200 mg orally Once eze ly [facility] Coumadin 1 tab(s) orally Active 6 mg orally once a day [facility] glipizide 1 tab(s) orally Active 10 mg orally Twice a da y [facility] Eliquis 1 tab(s) orally Active 2.5 mg orally 2 times a day [facility] Lyrica 1 cap(s) orally Active 25 mg orally once a day [facility] atorvastatin 1 tab(s) orally Active 40 mg orally once a day (at bedtime) [facility] gabapentin 1 cap(s) orally Active 300 mg orally Once cayden y [facility] furosemide 1 tab(s) orally Active 20 mg orally once a day [facility] Coumadin 1 tab(s) orally Active 5 mg orally once a day [facility] ferrous fumarate 1 tab(s) orally Active 325 mg orally once a da y [facility] MiraLax 17 g orally Active - orally once a day [facility] triamterene/hctz 1 tab(s) orally Active 25 mg-37.5 mg orally on ce a day [facility] Xarelto 1 tab(s) orally Active 15 mg orally once a day (in the evening) [facility] levetiracetam 1 tab(s) orally Active 750 mg orally 2 times a day [facility] Coumadin 1 tab(s) orally Active 4 mg orally once a day [facility] Coumadin 1 tab(s) orally Active 6 mg orally once a day [facility] levetiracetam 1 tab(s) orally Active 500 mg orally 2 times a day [facility] lisinopril 1 tab(s) orally Active 10 mg orally once a day [facility] Fish Oil 1 cap(s) orally Active 1200 mg orally Once eze ly [facility] spironolactone 1 tab(s) orally Active 25 mg orally Once daily [facility] Januvia 1 tab(s) orally Active 50 mg orally once a day [facility] furosemide 1 tab(s) orally No Longer Active 40 mg orally once a day [facility] Plavix 1 tab(s) orally No Longer Active 75 mg orally once a day [facility] Allergies, Adverse Reactions, Alerts Substance Category Reaction Severity Reaction type Status Date Reported Comments Source penicillin Adverse Reaction hives Adverse Reaction Active 08/26/2018 [facility] Immunizations Immunization Date Given Site Status Last Updated Comments Source [employer] [employer] 04/06/2018 completed [facility] 06/18/2017 completed [facility] 04/24/2016 completed [facility] Results No Data Provided for This Section Pathology Reports No Data Provided for This Section Diagnostic Reports No Data Provided for This Section Consultation Notes No Data Provided for This Section Discharge Summaries No Data Provided for This Section History and Physicals No Data Provided for This Section Vital Signs Vital Sign Value Date Comments Source Weight 189.5 08/26/2018 [facility] Height 64 0 08/26/2018 [facility] Respitory Rate 20 08/26/2018 [facility] Diastolic (mm Hg) 77 08/26/2018 [facility] Systolic (mm Hg) 133 08/26/2018 [facility] Heart Rate 81 08/26/2018 [facility] Weight 190 07/20/2018 [facility] Height 64 0 07/20/2018 [facility] Respitory Rate 20 07/20/2018 [facility] Diastolic (mm Hg) 80 07/20/2018 [facility] Systolic (mm Hg) 146 07/20/2018 [facility] Heart Rate 82 07/20/2018 [facility] Weight 198 06/10/2018 [facility] Height 64 0 06/10/2018 [facility] Respitory Rate 20 06/10/2018 [facility] Diastolic (mm Hg) 86 06/10/2018 [facility] Systolic (mm Hg) 160 06/10/2018 [facility] Heart Rate 95 06/10/2018 [facility] Weight 202 04/06/2018 [facility] Height 64 1 [facility] Respitory Rate 20 04/06/2018 [facility] Diastolic (mm Hg) 94 04/06/2018 [facility] Systolic (mm Hg) 151 04/06/2018 [facility] Heart Rate 77 04/06/2018 [facility] Weight 203 01/16/2018 [facility] Height 64 0 01/16/2018 [facility] Respitory Rate 20 01/16/2018 [facility] Diastolic (mm Hg) 78 01/16/2018 [facility] Systolic (mm Hg) 144 01/16/2018 [facility] Heart Rate 84 01/16/2018 [facility] Weight 203 01/05/2018 [facility] Height 64 0 01/05/2018 [facility] Respitory Rate 20 01/05/2018 [facility] Diastolic (mm Hg) 78 01/05/2018 [facility] Systolic (mm Hg) 136 01/05/2018 [facility] Heart Rate 78 01/05/2018 [facility] Weight 198 12/08/2017 [facility] Height 64 0 12/08/2017 [facility] Respitory Rate 20 12/08/2017 [facility] Diastolic (mm Hg) 72 12/08/2017 [facility] Systolic (mm Hg) 121 12/08/2017 [facility] Heart Rate 91 12/08/2017 [facility] Heart Rate 95 09/17/2017 [facility] Height 64 0 09/17/2017 [facility] Respitory Rate 20 09/17/2017 [facility] Diastolic (mm Hg) 86 09/17/2017 [facility] Systolic (mm Hg) 156 09/17/2017 [facility] Weight 204.5 07/16/2017 [facility] Height 64 0 07/16/2017 [facility] Respitory Rate 20 07/16/2017 [facility] Diastolic (mm Hg) 83 07/16/2017 [facility] Systolic (mm Hg) 150 07/16/2017 [facility] Heart Rate 79 07/16/2017 [facility] Weight 207.5 06/18/2017 [facility] Height 64 0 06/18/2017 [facility] Respitory Rate 20 06/18/2017 [facility] Diastolic (mm Hg) 88 06/18/2017 [facility] Systolic (mm Hg) 156 06/18/2017 [facility] Heart Rate 92 06/18/2017 [facility] Weight 199 04/09/2017 [facility] Height 64 1 06/09/2016 [facility] Respitory Rate 20 04/09/2017 [facility] Diastolic (mm Hg) 74 04/09/2017 [facility] Systolic (mm Hg) 122 04/09/2017 [facility] Heart Rate 95 04/09/2017 [facility] Weight 196 03/12/2017 [facility] Height 64 1 [facility] Respitory Rate 20 03/12/2017 [facility] Diastolic (mm Hg) 63 03/12/2017 [facility] Systolic (mm Hg) 109 03/12/2017 [facility] Heart Rate 93 03/12/2017 [facility] Height 64 0 01/15/2017 [facility] Weight 203 01/15/2017 [facility] Respitory Rate 20 01/15/2017 [facility] Diastolic (mm Hg) 76 01/15/2017 [facility] Systolic (mm Hg) 115 01/15/2017 [facility] Heart Rate 62 01/15/2017 [facility] Height 64 0 12/16/2016 [facility] Weight 202 12/16/2016 [facility] Respitory Rate 20 12/16/2016 [facility] Diastolic (mm Hg) 79 12/16/2016 [facility] Systolic (mm Hg) 139 12/16/2016 [facility] Heart Rate 91 12/16/2016 [facility] Height 64 0 11/18/2016 [facility] Weight 204 11/18/2016 [facility] Respitory Rate 20 11/18/2016 [facility] Diastolic (mm Hg) 72 11/18/2016 [facility] Systolic (mm Hg) 138 11/18/2016 [facility] Heart Rate 82 11/18/2016 [facility] Height 64 0 10/28/2016 [facility] Weight 202 10/28/2016 [facility] Respitory Rate 20 10/28/2016 [facility] Diastolic (mm Hg) 86 10/28/2016 [facility] Systolic (mm Hg) 162 10/28/2016 [facility] Heart Rate 84 10/28/2016 [facility] Height 64 0 10/09/2016 [facility] Weight 202 10/09/2016 [facility] Respitory Rate 20 10/09/2016 [facility] Diastolic (mm Hg) 74 10/09/2016 [facility] Systolic (mm Hg) 135 10/09/2016 [facility] Heart Rate 67 10/09/2016 [facility] Height 64 0 09/30/2016 [facility] Weight 202 09/30/2016 [facility] Respitory Rate 18 09/30/2016 [facility] Diastolic (mm Hg) 88 09/30/2016 [facility] Systolic (mm Hg) 132 09/30/2016 [facility] Heart Rate 70 09/30/2016 [facility] Height 64 0 09/02/2016 [facility] Weight 207 09/02/2016 [facility] Respitory Rate 18 09/02/2016 [facility] Diastolic (mm Hg) 72 09/02/2016 [facility] Systolic (mm Hg) 131 09/02/2016 [facility] Heart Rate 65 09/02/2016 [facility] Height 64 0 08/12/2016 [facility] Weight 202 08/12/2016 [facility] Respitory Rate 18 08/12/2016 [facility] Diastolic (mm Hg) 74 08/12/2016 [facility] Systolic (mm Hg) 122 08/12/2016 [facility] Heart Rate 65 08/12/2016 [facility] Height 64 0 06/24/2016 [facility] Weight 198 06/24/2016 [facility] Respitory Rate 18 06/24/2016 [facility] Diastolic (mm Hg) 72 06/24/2016 [facility] Systolic (mm Hg) 142 06/24/2016 [facility] Heart Rate 66 06/24/2016 [facility] Height 64 1 07/28/2015 [facility] Weight 203 05/27/2016 [facility] Respitory Rate 18 05/27/2016 [facility] Diastolic (mm Hg) 75 05/27/2016 [facility] Systolic (mm Hg) 177 05/27/2016 [facility] Heart Rate 62 05/27/2016 [facility] Height 64 1 06/29/2015 [facility] Weight 203 04/29/2016 [facility] Respitory Rate 18 04/29/2016 [facility] Diastolic (mm Hg) 76 04/29/2016 [facility] Systolic (mm Hg) 146 04/29/2016 [facility] Heart Rate 71 04/29/2016 [facility] Height 64 1 06/24/2015 [facility] Weight 200 [...] Provider ADM Date DC Date Status Source [facility] Unknown [id number] 04/24/20 16 04/24/2016 [facility] [id number] 04/24/20 16 04/24/2016 [facility] [id number] 04/24/20 16 04/24/2016 [facility] Unknown [id number] 04/24/20 16 04/24/2016 [facility] Unknown [id number] 04/24/20 16 04/24/2016 [facility] Unknown [id number] 04/24/20 16 04/24/2016 [facility] Unknown [id number] 04/29/20 04/29/2016 [facility] Unknown [id number] 04/29/20 16 04/29/2016 [facility] [id number] 04/29/20 16 04/29/2016 [facility] Unknown [id number] 04/29/20 16 04/29/2016 [facility] Unknown [id number] 04/29/20 16 04/29/2016 [facility] [id number] 05/27/20 16 05/27/2016 [facility] Unknown [id number] 05/27/20 16 05/27/2016 [facility] Unknown [id number] 05/27/20 16 05/27/2016 [facility] Unknown [id number] 05/27/20 16 05/27/2016 [facility] Unknown [id number] 06/24/19 17 06/24/2016 [facility] Unknown [id number] 06/24/19 17 06/24/2016 [facility] Unknown [id number] 06/24/19 17 06/24/2016 [facility] Message [id number] 07/15/19 17 07/15/2016 [facility] Message [id number] 07/15/19 17 07/15/2016 [facility] Unknown [id number] 08/13/19 17 08/12/2016 [facility] Procedures No Data Provided for This Section Assessment and Plan No Data Provided for This Section Plan of Care No Data Provided for This Section Social History Social History Date Source Social History ElementQualifiersDate Rep orted Tobacco Use: . Are you a: Never Smoker August 12, 2016 caffeine yes. caffeine Yes 2 cups per day August 12, 2016 alcohol no. alcohol No August 12, 2016 Children: . sons:1 daughters:1 August 12, 2016 Marital Status: . August 12, 2016 Exercise: no. Do you exercise? No August 12, 2016 08/12/2016 [facility] Family History Value Date S ource QualifierDescriptionCommentDate Reported Maternal Grand Mother Comment not [...] not available Jun 24, 2016 07/02/2016 [facility] Advance Directives No Data Provided for This Section Functional Status No Data Provided for This Section
--- OUTSIDE RECORDS SUMMARY | 2020-01-07 20:40 | XMS REPORT | Continuity of Care Document ---
Author Author [facility] t Organization [facility] Address [address] [place] [address] Phone Unavailable Care Team Providers Care Hand Binder Stripper Name Role Phone Meghna LORENZO DO PCP COLIN ROSAS Attphys Unavailable KOABILIO SZYMANSKI Attphys Unavailable Kim NUNEZ Attphys Unavailable Karlo VARGAS Attphys Unavailable NOE S AMBJOI Attphys Unavailable Yaneth Tripathi Attphys Unavailable ADELSO JACKSON Attphys Unavailable Rema Mondragon Attphys Unavailable Allen Chapa Attphys Unavailable PHYSICIAN, [facility] OUT Attphys Unavailable MAMADOU HAYNES Attphys Unavailable COLIN ROSAS Admphys Unavailable Payers Payer Name Policy Type Policy Number Effective Date Expiration Date Ernesto castro [facility] [id number] 2003 00:00:00 [facility] Medicare A & B [id number] 1999 00:00:00 [facility] Problems Condition Name Condition Details Condition Category Status Onset Date Resolution Date Last Treatment Date Treating Clinician Comments Source Cerebral infarction CVA (cerebral infarction) Problem Active 2014-06-09 00:00:00 [facility] Neck pain Cervical pain (neck) Problem Active [facility] Urinary tract infection Urinary tract infection Problem Active [facility] Acute gastrointestinal hemorrhage Acute GI hemorrhage Problem Active [facility] Anemia due to acute blood loss Anemia due to acute blood loss Problem Active [facility] Seizure Seizure Problem Active [facility] Confusion Confusion Problem Active [facility] Weakness Weakness Problem Active [facility] Metabolic disorder, unspecified Metabolic disorder, unspecified Active Problem 11/12/2018 [facility] Problem Active 2018-11-12 02:00:03 Cheko Lofton S/P cholecystectomy S/P cholecystectomy Active Problem 11/12/2018 [facility] Problem Active 2018-11-12 02:00:03 Cheko Lofton Diabetic polyneuropathy associated with type 2 diabete s mellitus Diabetic polyneuropathy associated with type 2 diabetes mellitus Active Problem 11/12/2018 [facility] Problem Active 2018-11-12 0 2:00:03 Cheko Lofton 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) Active Problem 11/12/2018 [facility] Problem Active 2018-11-12 02:00:03 Terence Lofton Cardiac pacemaker in situ Card iac pacemaker in situ Active Problem 11/12/2018 [facility] Problem Active 2018-11-12 02:00:03 Cheko Lofton 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) Active Problem 11/12/2018 [facility] Problem Active 2018-11-12 02:00:03 Cheko Lofton Flu vaccine need Flu vaccine need Active Problem 11/12/2018 [facility] Problem Active 2018-11-12 02:00:03 Cheko Lofton Cerebrovascular accident (CVA) due to embolism of righ t middle cerebral artery Cerebrovascular accident (CVA) due to embolism of right middle cerebral artery Active Problem 11/12/2018 [facility] Problem Active 2018-11-12 02:00:03 Renae Lofton Constipated Cons tipated Active Problem 11/12/2018 [facility] Problem Active 2018-11-12 02:00:03 Cheko Lofton Iron deficiency anemia, unspecified iron deficiency an emia type Iron deficiency anemia, unspecified iron deficiency anemia type Active Problem 11/12/2018 [facility] Problem Active 2018-11-12 02: 00:03 Cheko Lofton Other obesity due to excess calories Other obesity due to excess calories Active Problem 11/12/2018 [facility] Problem A ctive 2018-11-12 02:00:03 Cheko parikh Body mass index (BMI) of 30.0-30.9 in adult Body mass index (BMI) of 30.0-30.9 in adult Active Problem 11/12/2018 [facility] Problem Active 2018-11-12 02:00:03 Cheko Lofton Coronary artery disease involving paimiut coronary artery of paimiut heart without angina pectoris Coronary artery disease involving paimiut coronary artery of paimiut heart without angina pectoris Active Problem 11/12/2018 [facility] Problem Active 2018-11-12 02:00:03 Cheko Lofton HTN (hypertension) HTN (hypertension) Active Problem 11/12/2018 [facility] Problem Active 2018-11-12 02:00:03 Cheko Lofton Type 2 diabetes mellitus with other circ ulatory complication, without long-term current use of insulin Type 2 diabetes mellitus with other circulatory complication, without long-term current use of insulin Active Problem 11/12/2018 [facility] Problem Active 2018-11-12 0 2:00:03 Cheko Lofton Cerebrovascular accident (CVA), unspecified mechanism Cerebrovascular accident (CVA), unspecified mechanism Active Problem 11/12/2018 [facility] Problem Active 2018-11-12 02:00:03 Cheko Lofton Peptic ulcer disease Pept ic ulcer disease Active Problem 11/12/2018 [facility] Problem Active 2018-11-12 02:00: 03 Cheko Lofton 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) Active Problem 11/12/2018 [facility] Problem Active 2018-11-12 02:00:03 Cheko Lofton Vertigo Vert igo Active Problem 11/12/2018 [facility] Problem Active 2018-11-12 02:00:03 Terence Lofton Localized edema Loca lized edema Active Problem 11/12/2018 [facility] Problem Active 2018-11-12 02:00:03 Cheko Lofton Acute on chronic systolic congestive heart failure Acute on chronic systolic congestive heart failure Active Problem 11/12/2018 [facility] Problem Active 2018-11-12 02:00:03 Cheko Lofton A-fib A-fi b Active Problem 11/12/2018 [facility] Problem Active 2018-11-12 02:00:03 Cheko Lofton Gastrointestinal hemorrhage associated with chronic ga stritis Gastrointestinal hemorrhage associated with chronic gastritis Active Problem 11/12/2018 [facility] Problem Active 2018-11-12 02:00: 03 Cheko Lofton Expressive aphasia Expr essive aphasia Active Diagnosis 09/02/2018 [facility] Diagnosis Active 2018-09-02 02:00:42 [facility] [address] Chronic atrial fibrillation Ch ronic atrial fibrillation Active Diagnosis 09/02/2018 [facility] Diagnosis Active 2018-09-02 02:00:42 Cheko Lofton Type 2 diabetes mellitus with hyperglycemia Type 2 diabetes mellitus with hyperglycemia Active Diagnosis 09/02/2018 [facility] Diagnosis Active 2018-09-02 02:00:42 [facility] Type 2 diabetes mellitus without complications Type 2 diabetes mellitus without complications Active Problem 05/27/2017 [facility] Problem Active 2017-05-27 03:00:29 Terence Lofton Cough Coug h Active Diagnosis 03/19/2017 [facility] Diagnosis Active 2017-03-19 02:00:21 [facility] [place] Lofton Urinary frequency Urin lelo frequency Active Diagnosis 09/24/2017 [facility] Diagnosis Active 2017-09-24 02:01:14 Cheko Lofton Candidal intertrigo Cand idal intertrigo Active Diagnosis 06/18/2018 [facility] Diagnosis Active 2018-06-18 03:0 1:12 [facility] [address] Bloody stool Bloo dy stool Active Diagnosis 06/18/2018 [facility] Diagnosis Active 2018-06-18 03:01:12 [facility] Cystitis Cyst itis Active Diagnosis 06/18/2018 [facility] Diagnosis Active 2018-06-18 03:01:12 Cheko Lofton Allergies, Adverse Reactions, Alerts Allergy Name Allergy Type Status Severity Reaction(s) Onset Date Inacti ve Date Treating Clinician Comments Source Penicillin Propensity to adverse reactions Active Mild "SIC K" 2018-12-04 00:00:00 [facility] Metformin Propensity to adverse reactions Active Mild DIZZY 2018-12-04 00:00:00 [facility] penicillin penicillin Active hives 2018-08-26 00:00:00 Cheko Lofton Family History Family Member Diagnosis Comments Start Date Stop Date Source Unknown Family Member Family History 2016-07-02 03:07:53 2 03:07:53 Cheko Lofton Social History Social Habit Start Date Stop Date Quantity Comments Source TobaccoUse: 2016-08-12 00:00:00 2016-08-12 00:00:00 [facility] Medications Ordered Medication Name Filled Medication Name Start Date Stop Da te Current Medication? Ordering Clinician Indication Dosage Frequency Signature (SIG) Comments Components Source Ceftin Ceftin 2019-06-30 00:00:00 Yes Abimael M Reese Business Office Associate 500 Every 12 Hours [facility] Ascorbic Acid 500 Mg Tablet Ascorbic Acid 500 Mg Tablet 2019-01-06 00:00:00 Yes Abimael M Reese Business Office Associate 500 Daily [facility] Ferrous Sulfate 325 Mg Tablet. Ferrous Sulfate 325 Mg Tabl et. 2019-01-06 00:00:00 Yes Abimael M Reese Business Office Associate 325 Daily [facility] Aspirin (Aspirin Ec) 81 Mg Tablet. Aspirin (Aspirin Ec) 81 Mg Tablet. 2018-12-13 00:00:00 Yes Abimael Austin [place] Business Office Associate 81 Every M orning [facility] Rivaroxaban (Xarelto) 10 Mg Tablet Rivaroxaban (Xarelto) 10 Mg Tablet 2018-12-13 00:00:00 Yes Abimael Geovanna Reese Business Office Associate 20 Daily At 1700 [facility] Furosemide (Lasix) 40 Mg Tablet Furosemide (Lasix) 40 Mg Tab let 2018-12-04 00:00:00 Yes Ambica Sandhir Do 40 Daily [facility] Prednisone 20 Mg Tab, 40 Mg Oral Prednisone 20 Mg Tab, 40 Mg Oral 2018-12-04 00:00:00 2019-01-04 00:00:00 No Ambica Sandhir Do 40 Daily [facility] spironolactone 2018-11-11 00:00:00 Yes REMA LATTHE 1 tab(s) [facility] Lyrica 2018-09-02 02:00:42 Yes REMA BAIRESTHE TAKE 1 CAPSULE BY MOUTH ONCE DAILY [facility] Humulin N 2018-09-02 02:00:42 Yes REMA BAIRESTHE INJECT 20 UNITS SUBCUTANEOUSLY ONCE DAILY [facility] lisinopril 2018-09-02 02:00:42 Yes REMA LATTHE 1 tab(s) [facility] Co Q-10 2018-09-02 02:00:42 Yes REMA LATTHE 1 c ap(s) [facility] furosemide 2018-09-02 02:00:42 Yes REMA LATTHE 1 tab(s) [facility] [address] atorvastatin 2018-09-02 02:00:42 Yes REMA LATTHE 1 tab(s) [facility] [address] levetiracetam 2018-09-02 02:00:42 Yes REMA LATTHE TAKE 1 TABLET BY MOUTH TWICE DAILY [facility] triamterene/hctz 2018-09-02 02:00:42 Yes REMA LATTHE TAKE 1 TABLET BY MOUTH ONCE DAILY [facility] Fish Oil 2018-09-02 02:00:42 Yes REMA LATTHE 1 cap(s) [facility] Coumadin 2018-09-02 02:00:42 Yes REMA LATTHE 1 tab(s) [facility] triamterene/hctz 2018-07-29 03:02:02 Yes REMA LATTHE 1 tab(s) [facility] [address] Xarelto 2018-07-29 03:02:02 Yes REMA LATTHE 1 t ab(s) [facility] levetiracetam 2018-07-29 03:02:02 Yes REMA LATTHE 1 tab(s) [facility] Coumadin 2018-07-29 03:02:02 Yes REMA LATTHE 1 tab(s) [facility] senna 2018-07-13 00:00:00 Yes REMA LATTHE 1 tab (s) [facility] levetiracetam 2018-07-02 03:00:05 Yes REMA LATTHE 1 tab(s) [facility] lisinopril 2018-06-10 00:00:00 Yes REMA LATTHE 1 tab(s) [facility] cephalexin 2018-06-10 00:00:00 Yes REMA LATTHE 1 cap(s) [facility] Lotrimin AF Cream 2018-06-10 00:00:00 Yes REMA LATTHE 1 torsten [facility] lisinopril 2018-06-10 00:00:00 Yes REMA LATTHE 1 tab(s) [facility] fluconazole 2018-06-10 00:00:00 Yes REMA LATTHE 1 tab(s) [facility] glipizide 2018-01-10 00:00:00 Yes REMA LATTHE 1 tab(s) [facility] Colace 2018-01-05 00:00:00 Yes REMA LATTHE 1 ca p(s) [facility] atorvastatin 2017-12-24 02:04:04 Yes REMA LATTHE 1 tab(s) [facility] ferrous fumarate 2017-12-24 02:04:04 Yes REMA LATTHE 1 tab(s) [facility] MiraLax 2017-12-24 02:04:04 Yes REMA LATTHE 17 g [facility] lisinopril 2017-12-24 02:04:04 Yes REMA LATTHE 1 tab(s) [facility] Fish Oil 2017-12-24 02:04:04 Yes REMA LATTHE 1 cap(s) [facility] spironolactone 2017-12-24 02:04:04 Yes REMA LATTHE 1 tab(s) [facility] glipizide 2017-09-24 02:01:14 Yes REMA LATTHE 1 tab(s) [facility] gabapentin 2017-09-24 02:01:14 Yes REMA LATTHE 1 cap(s) [facility] Coumadin 2017-09-24 02:01:14 Yes REMA LATTHE 1 tab(s) [facility] Coreg 2017-09-17 00:00:00 Yes REMA LATTHE 1 tab (s) [facility] simethicone 2017-09-17 00:00:00 Yes REMA LATTHE 1 tab(s) [facility] Lyrica 2017-08-05 03:00:21 Yes REMA LATTHE 1 ca p(s) [facility] Coumadin 2017-07-18 03:00:10 Yes REMA LATTHE 1 tab(s) [facility] Warfarin Sodium 2017-07-02 00:00:00 Yes REMA LATTHE Take one half [facility] furosemide 2017-06-18 00:00:00 Yes REMA LATTHE 1 tab(s) [facility] gabapentin 2017-06-18 00:00:00 Yes REMA LATTHE 1 cap(s) [facility] Eliquis 2017-04-17 03:01:33 Yes REMA LATTHE 1 t ab(s) [facility] furosemide 2017-04-17 03:01:33 Yes REMA LATTHE 1 tab(s) [facility] Coumadin 2017-04-17 00:00:00 Yes REMA LATTHE 1 tab(s) [facility] benzonatate 2017-03-12 00:00:00 Yes REMA LATTHE 1 cap(s) [facility] Warfarin Sodium 2017-02-06 00:00:00 Yes REMA LATTHE 1 tab(s) [facility] hydrochlorothiazide-triamterene 2017-01-15 00:00:00 Yes REMA LATTHE 1 cap(s) [facility] Coumadin 2017-01-15 00:00:00 Yes REMA LATTHE 1 tab(s) [facility] Lyrica 2016-12-18 02:01:02 Yes REMA LATTHE 1 ca p(s) [facility] glipizide 2016-12-18 02:01:02 Yes REMA LATTHE 1 tab(s) [facility] atorvastatin 2016-12-18 02:01:02 Yes REMA LATTHE 1 tab(s) [facility] ferrous fumarate 2016-12-18 02:01:02 Yes REMA LATTHE 1 tab(s) [facility] MiraLax 2016-12-18 02:01:02 Yes REMA LATTHE 17 g [facility] gabapentin 2016-12-18 02:01:02 Yes REMA LATTHE 1 cap(s) [facility] Eliquis 2016-12-18 02:01:02 Yes REMA LATTHE 1 t ab(s) [facility] Co Q-10 2016-12-18 02:01:02 Yes REMA LATTHE 1 c ap(s) [facility] Savaysa 2016-12-12 02:02:10 Yes REMA LATTHE 1 t ab(s) [facility] Xarelto 2016-11-18 00:00:00 Yes REMA LATTHE 1 t ab(s) [facility] furosemide 2016-11-18 00:00:00 Yes REMA LATTHE 1 tab(s) [facility] Xarelto 2016-11-18 00:00:00 Yes REMA LATTHE 1 t ab(s) [facility] furosemide 2016-11-18 00:00:00 Yes REMA LATTHE 1 tab(s) [facility] Humulin N 2016-10-28 00:00:00 Yes REMA LATTHE 2 0 units [facility] lisinopril 2016-10-28 00:00:00 Yes REMA LATTHE 1 tab(s) [facility] Humulin N 2016-10-28 00:00:00 Yes REMA LATTHE 2 0 units [facility] lisinopril 2016-10-28 00:00:00 Yes REMA LATTHE 1 tab(s) [facility] Levemir 2016-09-30 00:00:00 Yes REMA LATTHE 20 units [facility] Januvia 2016-09-05 02:00:34 Yes REMA LATTHE 1 t ab(s) [facility] Januvia 2016-09-02 00:00:00 Yes REMA LATTHE 1 t ab(s) [facility] Ultram 2016-07-15 00:00:00 Yes REMA LATTHE 1 ta b(s) [facility] Ultram 2016-07-15 00:00:00 Yes REMA LATTHE 1 ta b(s) [facility] furosemide 2016-06-24 00:00:00 Yes REMA LATTHE 1 tab(s) [facility] furosemide 2016-06-24 00:00:00 Yes REMA LATTHE 1 tab(s) [facility] Plavix 2016-06-24 00:00:00 No REMA LATTHE 1 ta b(s) [facility] pantoprazole 2016-05-27 00:00:00 Yes REMA LATTHE 1 tab(s) [facility] pantoprazole 2016-05-27 00:00:00 Yes REMA LATTHE 1 tab(s) [facility] furosemide 2016-05-27 00:00:00 No REMA LATTHE 1 tab(s) [facility] furosemide 2016-05-03 03:03:23 No REMA LATTHE 1 tab(s) [facility] Plavix 2016-05-03 03:03:23 No REMA LATTHE 1 ta b(s) [facility] Eliquis 2016-04-24 00:00:00 Yes REMA LATTHE 1 t ab(s) [facility] levetiracetam 2014-09-09 00:00:00 Yes REMA LATTHE 1 tab(s) [facility] levetiracetam 2014-09-09 00:00:00 Yes REMA LATTHE 1 tab(s) [facility] levothyroxine 2014-05-03 00:00:00 Yes REMA LATTHE 1 tab(s) [facility] levothyroxine 2014-05-03 00:00:00 Yes REMA LATTHE 1 tab(s) [facility] Atorvastatin Calcium 20 Mg Tablet Atorvastatin Calcium 20 Mg Tablet Yes 40 Daily [facility] Carvedilol (Coreg) 3.125 Mg Tab Carvedilol (Coreg) 3.125 Mg Tab Yes Twice A Day [facility] Glipizide 5 Mg Tablet Glipizide 5 Mg Tablet Yes 5 Twice A Day [facility] Insulin Human Nph (Humulin N) 100 Units/Ml Ml Insulin Human Nph (Humulin N) 100 Units/Ml Ml Yes 23 Daily [facility] Levetiracetam (Keppra) 500 Mg Tablet Levetiracetam (Keppra) 500 Mg Tablet Yes 1250 Twice A Day [facility] Lidocaine/Phenyl/Glycer/Petrol (Preparation H Rapid-Li do Cream) 28 Gm Cream..g. Lidocaine/Phenyl/Glycer/Petrol (Preparation H Rapid-Lido Cream) 28 Gm Cream..g. Yes 28 As Needed [facility] Lisinopril 10 Mg Tablet Lisinopril 10 Mg Tablet Yes 2. 5 Daily [facility] Pantoprazole Sodium (Protonix) 40 Mg Tablet. Pantopr azole Sodium (Protonix) 40 Mg Tablet. Yes 40 Bedtime [facility] Polyethylene Glycol 3350 (Miralax) 17 Gm Powd.pack David yethylene Glycol 3350 (Miralax) 17 Gm Powd.pack Yes 17 As Needed [facility] Pregabalin (Lyrica) 25 Mg Cap Pregabalin (Lyrica) 25 Mg Cap Yes 25 Bedtime [facility] Sennosides (Senna Lax) 8.6 Mg Tablet Sennosides (Senna Lax) 8.6 Mg Tablet Yes 8.6 Daily as needed for Constipation [facility] Simethicone 80 Mg Chew Simethicone 80 Mg Chew Yes 125 As Needed [facility] Ubidecarenone (Coq-10) 100 Mg Capsule Ubidecarenone (Coq-10) 100 Mg Capsule Yes Daily [facility] Levetiracetam 500 Mg Tablet, 1000 Mg Oral Levetiraceta m 500 Mg Tablet, 1000 Mg Oral 2019-06-30 00:00:00 No 1000 Twice A Day [facility] [place]-3 Fatty Acids/Fish Oil ([place] 3 Fi Oil Softgel) 1 Each Capsule., 520 Mg Oral [place]-3 Fatty Acids/Fish Oil ([place] 3 Fi Oil Softgel) 1 Each Capsule., 520 Mg Oral 2019-04-12 00:00:00 No 520 Daily [facility] Phenyleph/Pramoxin/Glycr/W.pet (Preparation H Cream) 2 6 Gm Cream..g., Phenyleph/Pramoxin/Glycr/W.pet (Preparation H Cream) 26 Gm Cream..g., 2019-04-12 00:00:00 No [facility] Triamterene/Hctz (Triamterene-Hctz 37.5-25 Mg Tb) 1 Ea Tab, 1 Each Oral Triamterene/Hctz (Triamterene-Hctz 37.5-25 Mg Tb) 1 Ea Tab, 1 Each Oral 2019-01-06 00:00:00 No 1 [facility] Warfarin Sodium 3 Mg Tablet, 6 Mg Oral Warfarin Sodium 3 Mg Tabl et, 6 Mg Oral 2018-12-13 00:00:00 No 6 Daily [facility] Amlodipine Besylate 5 Mg Tablet, 5 Mg Oral Amlodipine Besylate 5 Mg Tablet, 5 Mg Oral 2018-12-12 00:00:00 No 5 Daily [facility] Clopidogrel Bisulfate (Plavix) 75 Mg Tablet, 75 Mg Ora l Clopidogrel Bisulfate (Plavix) 75 Mg Tablet, 75 Mg Oral 2018-12-12 00:00:00 No 75 Daily [facility] Doxycycline Hyclate 100 Mg Capsule, 100 Mg Oral Doxycy ortiz Hyclate 100 Mg Capsule, 100 Mg Oral 2018-12-12 00:00:00 No 100 Twi ce A Day [facility] Furosemide (Lasix) 40 Mg Tablet, 40 Mg Oral Furosemide (Lasix) 40 Mg Tablet, 40 Mg Oral 2018-12-12 00:00:00 No 40 Twice A Day [facility] Glyburide/Metformin Hcl (Glucovance 5-500 Mg Tablet) 1 Each Tablet, 2 Tab Oral Glyburide/Metformin Hcl (Glucovance 5-500 Mg Tablet) 1 Each Tablet, 2 Tab Oral 2018-12-12 00:00:00 No 2 Twice A Day [facility] Metoprolol Tartrate 50 Mg Tablet, 50 Mg Oral Metoprolo l Tartrate 50 Mg Tablet, 50 Mg Oral 2018-12-12 00:00:00 No 50 Twice A Day [facility] Sulfamethoxazole/Trimethoprim (Bactrim Ds Tablet) 1 Ea ch Tablet, 1 Tab Oral Sulfamethoxazole/Trimethoprim (Bactrim Ds Tablet) 1 Each Tablet, 1 Tab Oral 2018-12-12 00:00:00 No 1 Twice A Day [facility] Vital Signs Vital Name Observation Time Observation Value Comments Source Weight 2018-08-26 18:00:00 [facility] Height 2018-08-26 18:00:00 [facility] Respitory Rate 2018-08-26 18:00:00 [facility] Diastolic (mm Hg) 2018-08-26 18:00:00 [facility] Systolic (mm Hg) 2018-08-26 18:00:00 [facility] Heart Rate 2018-08-26 18:00:00 [facility] Weight 2018-07-20 19:00:00 [facility] Height 2018-07-20 19:00:00 [facility] Respitory Rate 2018-07-20 19:00:00 [facility] Diastolic (mm Hg) 2018-07-20 19:00:00 [facility] Systolic (mm Hg) 2018-07-20 19:00:00 [facility] Heart Rate 2018-07-20 19:00:00 [facility] Weight 2018-06-10 18:00:00 [facility] Height 2018-06-10 18:00:00 [facility] Respitory Rate 2018-06-10 18:00:00 [facility] Diastolic (mm Hg) 2018-06-10 18:00:00 [facility] Systolic (mm Hg) 2018-06-10 18:00:00 [facility] Heart Rate 2018-06-10 18:00:00 [facility] Weight 2018-04-06 19:00:00 [facility] Height 2018-04-06 19:00:00 [facility] Respitory Rate 2018-04-06 19:00:00 [facility] Diastolic (mm Hg) 2018-04-06 19:00:00 [facility] Systolic (mm Hg) 2018-04-06 19:00:00 [facility] Heart Rate 2018-04-06 19:00:00 [facility] Weight 2018-01-16 17:00:00 [facility] Height 2018-01-16 17:00:00 [facility] Respitory Rate 2018-01-16 17:00:00 [facility] Diastolic (mm Hg) 2018-01-16 17:00:00 [facility] Systolic (mm Hg) 2018-01-16 17:00:00 [facility] Heart Rate 2018-01-16 17:00:00 [facility] Weight 2018-01-05 18:00:00 [facility] Height 2018-01-05 18:00:00 [facility] Respitory Rate 2018-01-05 18:00:00 [facility] Diastolic (mm Hg) 2018-01-05 18:00:00 [facility] Systolic (mm Hg) 2018-01-05 18:00:00 [facility] Heart Rate 2018-01-05 18:00:00 [facility] Weight 2017-12-08 17:00:00 [facility] Height 2017-12-08 17:00:00 [facility] Respitory Rate 2017-12-08 17:00:00 [facility] Diastolic (mm Hg) 2017-12-08 17:00:00 [facility] Systolic (mm Hg) 2017-12-08 17:00:00 [facility] Heart Rate 2017-12-08 17:00:00 [facility] Heart Rate 2017-09-17 18:20:00 [facility] Height 2017-09-17 18:20:00 [facility] Respitory Rate 2017-09-17 18:20:00 [facility] Diastolic (mm Hg) 2017-09-17 18:20:00 [facility] Systolic (mm Hg) 2017-09-17 18:20:00 [facility] Weight 2017-07-16 18:00:00 [facility] Height 2017-07-16 18:00:00 [facility] Respitory Rate 2017-07-16 18:00:00 [facility] Diastolic (mm Hg) 2017-07-16 18:00:00 [facility] Systolic (mm Hg) 2017-07-16 18:00:00 [facility] Heart Rate 2017-07-16 18:00:00 [facility] Weight 2017-06-18 18:40:00 [facility] Height 2017-06-18 18:40:00 [facility] Respitory Rate 2017-06-18 18:40:00 [facility] Diastolic (mm Hg) 2017-06-18 18:40:00 [facility] Systolic (mm Hg) 2017-06-18 18:40:00 [facility] Heart Rate 2017-06-18 18:40:00 [facility] Weight 2017-04-09 19:00:00 [facility] Height 2017-04-09 19:00:00 [facility] Respitory Rate 2017-04-09 19:00:00 [facility] Diastolic (mm Hg) 2017-04-09 19:00:00 [facility] Systolic (mm Hg) 2017-04-09 19:00:00 [facility] Heart Rate 2017-04-09 19:00:00 [facility] Weight 2017-03-12 18:00:00 [facility] Height 2017-03-12 18:00:00 [facility] Respitory Rate 2017-03-12 18:00:00 [facility] Diastolic (mm Hg) 2017-03-12 18:00:00 [facility] Systolic (mm Hg) 2017-03-12 18:00:00 [facility] Heart Rate 2017-03-12 18:00:00 [facility] Height 2017-01-15 18:00:00 [facility] Weight 2017-01-15 18:00:00 [facility] Respitory Rate 2017-01-15 18:00:00 [facility] Diastolic (mm Hg) 2017-01-15 18:00:00 [facility] Systolic (mm Hg) 2017-01-15 18:00:00 [facility] Heart Rate 2017-01-15 18:00:00 [facility] Height 2016-12-16 18:00:00 [facility] Weight 2016-12-16 18:00:00 [facility] Respitory Rate 2016-12-16 18:00:00 [facility] Diastolic (mm Hg) 2016-12-16 18:00:00 [facility] Systolic (mm Hg) 2016-12-16 18:00:00 [facility] Heart Rate 2016-12-16 18:00:00 [facility] Height 2016-11-18 18:20:00 [facility] Weight 2016-11-18 18:20:00 [facility] Respitory Rate 2016-11-18 18:20:00 [facility] Diastolic (mm Hg) 2016-11-18 18:20:00 [facility] Systolic (mm Hg) 2016-11-18 18:20:00 [facility] Heart Rate 2016-11-18 18:20:00 [facility] Height 2016-10-28 18:20:00 [facility] Weight 2016-10-28 18:20:00 [facility] Respitory Rate 2016-10-28 18:20:00 [facility] Diastolic (mm Hg) 2016-10-28 18:20:00 [facility] Systolic (mm Hg) 2016-10-28 18:20:00 [facility] Heart Rate 2016-10-28 18:20:00 [facility] Height 2016-10-09 18:00:00 [facility] Weight 2016-10-09 18:00:00 [facility] Respitory Rate 2016-10-09 18:00:00 [facility] Diastolic (mm Hg) 2016-10-09 18:00:00 [facility] Systolic (mm Hg) 2016-10-09 18:00:00 [facility] Heart Rate 2016-10-09 18:00:00 [facility] Height 2016-09-30 19:00:00 [facility] Weight 2016-09-30 19:00:00 [facility] Respitory Rate 2016-09-30 19:00:00 [facility] Diastolic (mm Hg) 2016-09-30 19:00:00 [facility] Systolic (mm Hg) 2016-09-30 19:00:00 [facility] Heart Rate 2016-09-30 19:00:00 [facility] Height 2016-09-02 18:40:00 [facility] Weight 2016-09-02 18:40:00 [facility] Respitory Rate 2016-09-02 18:40:00 [facility] Diastolic (mm Hg) 2016-09-02 18:40:00 [facility] Systolic (mm Hg) 2016-09-02 18:40:00 [facility] Heart Rate 2016-09-02 18:40:00 [facility] Height 2016-08-12 19:20:00 [facility] Weight 2016-08-12 19:20:00 [facility] Respitory Rate 2016-08-12 19:20:00 [facility] Diastolic (mm Hg) 2016-08-12 19:20:00 [facility] Systolic (mm Hg) 2016-08-12 19:20:00 [facility] Heart Rate 2016-08-12 19:20:00 [facility] Height 2016-06-24 19:20:00 [facility] Weight 2016-06-24 19:20:00 [facility] Respitory Rate 2016-06-24 19:20:00 [facility] Diastolic (mm Hg) 2016-06-24 19:20:00 [facility] Systolic (mm Hg) 2016-06-24 19:20:00 [facility] Heart Rate 2016-06-24 19:20:00 [facility] Height 2016-05-27 19:40:00 [facility] Weight 2016-05-27 19:40:00 [facility] Respitory Rate 2016-05-27 19:40:00 [facility] Diastolic (mm Hg) 2016-05-27 19:40:00 [facility] Systolic (mm Hg) 2016-05-27 19:40:00 [facility] Heart Rate 2016-05-27 19:40:00 [facility] Height 2016-04-29 19:00:00 [facility] Weight 2016-04-29 19:00:00 [facility] Respitory Rate 2016-04-29 19:00:00 [facility] Diastolic (mm Hg) 2016-04-29 19:00:00 [facility] Systolic (mm Hg) 2016-04-29 19:00:00 [facility] Heart Rate 2016-04-29 19:00:00 [facility] Height 2016-04-24 19:00:00 [facility] Weight 2016-04-24 19:00:00 [facility] Respitory Rate 2016-04-24 19:00:00 [facility] Diastolic (mm Hg) 2016-04-24 19:00:00 [facility] Systolic (mm Hg) 2016-04-24 19:00:00 [facility] Heart Rate 2016-04-24 19:00:00 [facility] Procedures Procedure Date / Time Performed Performing Clinician [facility] e Computed tomography, lower extremity; without contrast material 2019-07-04 00:00:00 MALCOLM HAN [facility] Computed tomography of brain without radiopaque contrast 202 00:00:00 BLAIR MUNIZ [facility] Computed tomography of brain without radiopaque contrast 202 00:00:00 B[facility]ATHIS [facility] Computed tomography of cervical spine without contrast 06-28 00:00[facility] and [facility] without contrast 2019-06-28 00:00:00 ABILIO HERMAN [facility] Computed tomography of brain without radiopaque contrast 201 02-17-05 00:00:00 JEWELS MCDONALD [facility] Computed tomography of brain without radiopaque contrast 201 02-18-04 00:00:00 KENDALL DAWSON [facility] Computed tomography angiography of abdomen and pelvis without then withcontrast 2019-01-04 00:00:00 OSWALD GARCIA [facility] Computed tomography of brain without radiopaque contrast 201 02-13-05 00:00:00 ENRIQUE MAMADOU Kim [facility] X-ray of chest, single view 2018-12-11 00:00:00 RAJEEVSHEAMAMADOU [facility] X-ray of chest, two views 2018-10-11 00:00:00 KENDALL DAWSON CH, I [facility] Encounters Start Date/Time End Date/Time Encounter Type Admission Type [facility] Care Department Encounter ID Source 2019-07-03 17:15:00 2019-07-04 17:50:00 Discharged Inpatient (obs) 1 COLIN ROSAS [facility] [id number] [facility] 2019-06-28 15:37:00 2019-06-30 15:15:00 Discharged Inpatient (obs) 1 ABILIO DE LA CRUZ [facility] [id number] [facility] 2019-04-12 08:17:00 2019-04-14 15:42:00 Discharged Inpatient (obs) 1 COLIN ROSAS [facility] [id number] [facility] 2019-01-04 17:05:00 2019-01-06 08:28:00 Discharged Inpatient (obs) 1 COLIN ROSAS [facility] [id number] [facility] 2018-12-11 19:52:00 2018-12-13 10:33:00 Discharged Inpatient (obs) 1 RAJEEVMAMADOU VALDIVIA [facility] [id number] [facility] 2018-12-04 18:50:00 2018-12-04 22:40:00 Departed Emergency Room 1 ALICIA CLIFTON [facility] [id number] [facility] 2018-11-11 15:25:00 2018-11-11 15:25:00 [facility] [id number] eClinicalWorks 2018-10-11 19:30:00 2018-10-12 00:19:00 Departed Emergency Room 1 KENDALL LIU [facility] [id number] [facility] 2018-08-26 13:00:00 2018-08-26 13:00:00 [facility] [id number] eClinicalWorks 2018-08-06 15:50:00 2018-08-06 15:50:00 [facility] [id number] [facility] 2018-07-27 11:42:00 2018-07-27 11:42:00 [facility] [id number] e[facility]Works 2018-07-21 11:19:00 2018-07-21 11:19:00 [facility] [id number] eClinicalWorks 2018-07-20 13:00:00 2018-07-20 13:00:00 [facility] [id number] eClinicalWorks 2018-07-13 13:33:00 2018-07-13 13:33:00 [facility] [id number] eClinicalWorks 2018-06-12 12:54:00 2018-06-12 12:54:00 [facility] [id number] [facility]Works 2018-06-10 12:00:00 2018-06-10 12:00:00 [facility] [id number] [facility]Works 2018-05-15 09:35:00 2018-05-15 09:35:00 [facility] [id number] eClinicalWorks 2018-04-06 13:00:00 2018-04-06 13:00:00 [facility] [id number] eClinicalWorks 2018-03-30 12:05:00 2018-03-30 12:05:00 [facility] [id number] eClinicalWorks 2018-01-27 12:51:00 2018-01-27 12:51:00 [facility] [id number] eClinicalWorks 2018-01-16 11:00:00 2018-01-16 11:00:00 [facility] [id number] eClinicalWorks 2018-01-05 13:00:00 2018-01-05 13:00:00 [facility] [id number] eClinicalWorks 2017-12-29 09:38:00 2017-12-29 09:38:00 [facility] [id number] eClinicalWorks 2017-12-08 12:00:00 2017-12-08 12:00:00 [facility] [id number] eClinicalWorks 2017-10-24 12:33:00 2017-10-24 12:33:00 [facility] [id number] eClinicalWorks 2017-10-10 12:47:00 2017-10-10 12:47:00 [facility] [id number] eClinicalWorks 2017-09-17 13:20:00 2017-09-17 13:20:00 [facility] [id number] eClinicalWorks 2017-08-29 14:30:00 2017-08-29 14:30:00 [facility] [id number] eClinicalWorks 2017-08-06 11:06:00 2017-08-06 11:06:00 [facility] [id number] eClinicalWorks 2017-08-04 09:41:00 2017-08-04 09:41:00 [facility] [id number] eClinicalWorks 2017-08-01 11:24:00 2017-08-01 11:24:00 [facility] [id number] eClinicalWorks 2017-07-16 12:00:00 2017-07-16 12:00:00 [facility] [id number] eClinicalWorks 2017-07-02 09:24:00 2017-07-02 09:24:00 [facility] [id number] eClinicalWorks 2017-06-18 12:40:00 2017-06-18 12:40:00 [facility] [id number] eClinicalWorks 2017-05-26 14:04:00 2017-05-26 14:04:00 [facility] [id number] eClinicalWorks 2017-05-22 09:01:00 2017-05-22 09:01:00 [facility] [id number] eClinicalWorks 2017-04-28 10:34:00 2017-04-28 10:34:00 [facility] [id number] eClinicalWorks 2017-04-17 14:06:00 2017-04-17 14:06:00 [facility] [id number] eClinicalWorks 2017-04-11 09:39:00 2017-04-11 09:39:00 [facility] [id number] eClinicalWorks 2017-04-09 13:00:00 2017-04-09 13:00:00 [facility] [id number] eClinicalWorks 2017-03-12 13:00:00 2017-03-12 13:00:00 [facility] [id number] eClinicalWorks 2017-02-21 12:43:00 2017-02-21 12:43:00 [facility] [id number] eClinicalWorks 2017-02-06 13:35:00 2017-02-06 13:35:00 [facility] [id number] eClini calWorks 2017-01-27 14:20:00 2017-01-27 14:20:00 [facility] [id number] [facility]Clini calWorks 2017-01-15 13:00:00 2017-01-15 13:00:00 [facility] [id number] eClinicalWorks 2017-01-07 11:25:00 2017-01-07 11:25:00 [facility] [id number] eClini calWorks 2016-12-24 13:51:00 2016-12-24 13:51:00 [facility] [id number] Artur Ahumada 2016-12-16 13:00:00 2016-12-16 13:00:00 [facility] [id number] Artur Ahumada 2016-11-18 13:20:00 2016-11-18 13:20:00 [facility] [id number] Artur Ahumada 2016-11-06 13:51:00 2016-11-06 13:51:00 [facility] [id number] Artur Ahumada 2016-10-28 13:20:00 2016-10-28 13:20:00 [facility] [id number] Artur Ahumada 2016-10-09 13:00:00 2016-10-09 13:00:00 [facility] [id number] Artur Ahumada 2016-09-30 14:00:00 2016-09-30 14:00:00 [facility] [id number] Artur Ahumada 2016-09-02 13:40:00 2016-09-02 13:40:00 [facility] [id number] Artur Ahumada 2016-08-12 13:20:00 2016-08-12 13:20:00 [facility] [id number] Artur Ahumada 2016-07-15 17:04:00 2016-07-15 17:04:00 [facility] [id number] Artur Ahumada 2016-06-24 13:20:00 2016-06-24 13:20:00 [facility] [id number] Artur Ahumada 2016-05-27 13:40:00 2016-05-27 13:40:00 [facility] [id number] Artur Ahumada 2016-04-29 13:00:00 2016-04-29 13:00:00 [facility] [id number] [employer] 2016-04-24 13:00:00 2016-04-24 13:00:00 Outpatient [facility] [id number] [employer] Results Test Description Test Time Test Comments Results Result Comments Source CHEST SINGLE (PORTABLE) 2020-01-06 14:34:00 [place] [address] Patient Name: ÁNGELA WASHINGTON MR #: [id number] : 1935 Age/Sex: 84/F Req #: [id number] Adm Physician: COLIN ROSAS MD Ordered by: KENDALL DAWSON DO Report #: [id number] Location: [facility] Room/Bed: [place] [address] Procedure: [id number] DX/CHEST SINGLE (PORTABLE) Exam Date: 01/06/20 Exam Time: 1356 REPORT STATUS: Signed X-ray chest AP portable Comparison: None History: Right arm and leg pain. Rule out CVA. Findings: Left subclavian route single-chamber pacer. Status post median sternotomy and CABG. Central airways unremarkable. Cardiomegaly. Atherosclerotic ectatic aorta. No pleural effusion. No pneumothorax. No definite focal lung disease to the extent seen. Visualized skeletal structures show no acute abnormality. Upper abdomen unremarkable. Impression: Cardiomegaly. No other acute cardiopulmonary disease. Signed by: Chad Frost MD on 01/06/2020 2:35 PM Dictated By: CHAD FROST MD 1435 Transcribed By: MALIA on 01/06/20 1435 COPY TO: KENDALL DAWSON DO CT BRAIN WO 2020-01-06 14:11:00 [facility] [address] [place] [address] Patient Name: ÁNGELA WASHINGTON MR #: [id number] : 1935 Age/Sex: 84/F Req #: [id number] Adm Physician: COLIN ROSAS MD Ordered by: KENDALL DAWSON DO Report #: [id number] Location: [facility] Room/Bed: [place] [address] Procedure: [id number] CT/CT BRAIN WO Exam Date: 01/06/20 Exam Time: 1356 REPORT STATUS: Signed CT BRAIN WO HISTORY: History of CVA, seizure, fall COMPARISON: Head CT 07/03/2019 Technique: Noncontrast axial scans were obtained from skull base to the vertex. Coronal and sagittal reconstructions obtained from the axial data. One or more of the following dose reduction techniques were used: Automated exposure control, adjustment of the mA and/or kV according to patient size, and/or utilization of iterative reconstruction technique. DISCUSSION: Scalp/Skull: Unremarkable. Brain sulci: Mildly prominent. Ventricles: Compensatory dilatation. Extra- axial spaces: No masses or fluid collections. Carotid and vertebral artery calcifications are present. 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 Mild bilateral deep white matter hypodensity is likely chronic microvascular ischemic change. Otherwise, no masses, hemorrhage, or large vascular territory acute infarct. Dural sinuses: No abnormal densities. Sellar/Suprasellar region: Intact. Skull base: Intact. Incidental findings: Bilateral ocular lens replacement. IMPRESSION: 1. No acute intracranial abnormalities. 2. No significant change compared to head CT dated 07/03/2019. 3. 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 4. 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 5. Mild supratentorial chronic microvascular ischemic change. Mild generalized cerebral volume loss. Signed by: Dr. Jose Freeman M.D. on 01/06/2020 2:18 PM Dictated By: JOSE FREEMAN MD 17 Transcribed By: MALIA on 01/06/201417 COPY TO: KENDALL DAWSON DO CT KNEE RIGHT WO 2019-07-04 15:34:00 [place] [address] Patient Name: ÁNGELA WASHINGTON MR #: [id number] : 1935 Age/Sex: 83/F Req #: [id number] Adm Physician: COLIN ROSAS MD Ordered by: MALCOLM HAN MD Report #: [id number] Location: MED/SURG Room/Bed: [facility] Procedure: [id number] CT/CT KNEE RIGHT WO Exam Date: 07/04/19 Exam Time: 1427 REPORT STATUS: Signed EXAM: CT knee without contrast INDICATION: Right knee pain status post seizure. COMPARISON: Right tibia/fibula radiographs 07/04/2019 TECHNIQUE: The right knee was scanned utilizing a multidetector helical scanner from the distal femur to the proxima l tibia without administration of IV contrast. Coronal and sagittal reformations were obtained. Routine protocol was performed. RADIATION DOSE: Total DLP: 129.1 mGy*cm Estimated effective dose: (DLP x 0.015 x size factor) mSv COMPLICATIONS: None FINDINGS: No evidence of acute fracture or malalignment. Small suprapatellar joint effusion. Mild soft tissue edema surrounding the knee. There is a Caba's cyst, measuring up to 3.0 x 2.1 cm x 5.9 (AP x TV x SI), partially calcified. Moderate medial compartment predominant degenerative changes with joint space narrowing and bony osteophyte formation. Atherosclerotic vascular calcifications. Mild quadriceps enthesopathy. IMPRESSION: No acute osseous abnormality. Small suprapatellar joint effusion. Mild soft tissue edema surrounding the knee. 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 Signed by: Dr. Jude Li MD on 07/04/2019 3:38 PM Dictated By: JUDE LI MD 37 Transcribed By: MALIA on 07/04/191537 COPY TO: MALCOLM HAN MD Bedside Glucose 2019-07-04 11:50:00 Test Item Bedside Glucose (test code = 89907-1) 218 70-120 H Meter ID: [id number] [facility] 2019-07-04 09:57:00 [place] [address] Patient Name: ÁNGELA WASHINGTON MR #: [id number] : 1935 Age/Sex: 83/F Req #: [id number] Adm Physician: COLIN ROSAS MD Ordered by: Abimael De La O NP Report #: [id number] Location: MED/SURG Room/Bed: [facility] Procedure: [id number] DX/LO WER LEG RIGHT Exam Date: 07/04/19 Exam Time: 0640 REPORT STATUS: Signed Exam: Right leg radiographs-2 views History: Pain status post fall. Comparison: No ne. Findings/Impression: No evidence of acute fracture or malalignment. M oderate medial compartment predominant degenerative changes of the knee. Ather osclerotic vascular calcifications. Signed by: Dr. Jude Li MD on 9:58 AM Dictated By: JUDE LI MD 7 Transcribed By: MALIA on 07/04/19957 [employer] HEAD Y TO: ABIMAEL DE LA O ENTRY MANAGER Creatine Kinase [id number] 07:22:00* Test Item Value Reference Range Interpretation Comments Creatine Kinase MB (test code = 79898-6) 1.00 0-5.0 [facility] L6257-16-08 07:22:00* Test Item Value Reference Range Interpretation Comments Troponin I (test code = HRA9651) 0.002 0-0.300 [facility] HospitalCreatine Cppuda4524-35-18 07:12:00* Test Item Value Reference Range Interpretation Comments Creatine Kinase (test code = 2157-6) 49 29-168 [facility] Byzll0350-76-98 06:34:00* Test Item Value Reference Range Interpretation Comments Sodium Level (test code = 2951-2) 140 136-145 [facility] HospitalPotassium Gaeyv1150-96-47 06:34:00* Test Item Value Reference Range Interpretation Comments Potassium Level (test code = 2823-3) 3.9 3.5-5.1 [facility] HospitalChloride Lhoxt7938-97-90 06:34:00* Test Item Value Reference Range Interpretation Comments Chloride Level (test code = 2075-0) 106 98-107 [facility] HospitalCarbon Dioxide Bxdyf0024-42-57 06:34:00* Test Item Value Reference Range Interpretation Comments Carbon Dioxide Level (test code = 2028-9) 24 22-29 [facility] HospitalAnion Fcv1419-01-35 06:34:00* Test Item Value Reference Range Interpretation Comments Anion Gap (test code = 75104-1) 13.9 8-16 [facility] HospitalBlood Urea Bpbuirqc6389-96-06 06:34:00* Test Item Value Reference Range Interpretation Comments Blood Urea Nitrogen (test code = 3094-0) 15 7- [facility] HospitalCreatinine2020-01-26 06:34:00* Test Item Value Reference Range Interpretation Comments Creatinine (test code = 2160-0) 0.81 0.57-1.11 [facility] HospitalBUN/Creatinine Tpvuw0776-93-68 06:34:00* Test Item Value Reference Range Interpretation Comments BUN/Creatinine Ratio (test code = 3097-3) 19 6- [facility] HospitalEstimat Glomerular Filtration Rate 2019-07-04 06:34:00* Test Item Value Reference Range Interpretation Comments Estimat Glomerular Filtration Rate (test code = 091612908) > 60 >60 Ranges were taken from the National Kidney Disease Education Program and the [facility] literature.Reference ranges:60 or greater: Lvorud58-56 ( for 3 consecutive months): Chronic kidney disease 15 or less: Kidney failureMemorial Hermann Northeast HospitalGlucose Obolb2544-19-52 06:34:00* Test Item Value Reference Range Interpretation Comments Glucose Level (test code = NDG6244) 122 74-118 H [facility] HospitalCalcium Wraob9168-66-38 06:34:00* Test Item Value Reference Range Interpretation Comments Calcium Level (test code = 81897-6) 8.7 8.4-10.2 [facility] HospitalTotal Xhuepmdug2513-33-85 06:34:00* Test Item Value Reference Range Interpretation Comments Total Bilirubin (test code = 1975-2) 0.5 0.2-1.2 [facility] HospitalAspartate Amino Transf (AST/SGOT) 2019-07-04 06:34:00* Test Item Value Reference Range Interpretation Comments Aspartate Amino Transf (AST/SGOT) (test code = Aspartate Amino Transf (AST/SGOT)) 15 5-34 [facility] HospitalAlanine Aminotransferase (ALT/SGPT) 2019-07-04 06:34:00* Test Item Value Reference Range Interpretation Comments Alanine Aminotransferase (ALT/SGPT) (test code = 1742-6) 14 0-55 [facility] HospitalTotal Czdipmc7267-56-24 06:34:00* Test Item Value Reference Range Interpretation Comments Total Protein (test code = 2885-2) 5.7 6.5-8.1 L [facility] HospitalAlbumin2020-01-26 06:34:00* Test Item Value Reference Range Interpretation Comments Albumin (test code = 1751-7) 2.9 3.5-5.0 L [facility] HospitalGlobulin2020-01-26 06:34:00* Test Item Value Reference Range Interpretation Comments Globulin (test code = 07304-7) 2.8 2.3-3.5 [facility] HospitalAlbumin/Globulin Itbdw2294-80-46 06:34:00 * Test Item Value Reference Range Interpretation Comments Albumin/Globulin Ratio (test code = 1759-0) 1.0 0.8-2.0 [facility] HospitalAlkaline Erkqnovxwcz1044-15-44 06:34:00* Test Item Value Reference Range Interpretation Comments Alkaline Phosphatase (test code = 6768-6) 71 40-150 [facility] HospitalAmmonia2020-01-26 06:09:00* Test Item Value Reference Range Interpretation Comments Ammonia (test code = 23371-2) 56 31-123 [facility] HospitalWhite Blood Pkpqw4785-15-31 06:02:00* Test Item Value Reference Range Interpretation Comments White Blood Count (test code = 6690-2) 5.16 4.8-10.8 [facility] HospitalRed Blood Kvuxs3682-67-87 06:02:00* Test Item Value Reference Range Interpretation Comments Red Blood Count (test code = 789-8) 4.03 3.6-5.1 [facility] HospitalHemoglobin2020-01-26 06:02:00* Test Item Value Reference Range Interpretation Comments Hemoglobin (test code = 32086-8) 11.4 12.0-16.0 L [facility] HospitalHematocrit2020-01-26 06:02:00* Test Item Value Reference Range Interpretation Comments Hematocrit (test code = 4544-3) 35.6 34.2-44.1 [facility] HospitalMean Corpuscular Kgcqoc5334-37-27 06:02:00* Test Item Value Reference Range Interpretation Comments Mean Corpuscular Volume (test code = 787-2) 88.3 81-99 [facility] HospitalMean Corpuscular Kgfvptjtnn4556-51-75 06:02:00* Test Item Value Reference Range Interpretation Comments Mean Corpuscular Hemoglobin (test code = 785-6) 28.3 28-32 [facility] HospitalMean Corpuscular Hemoglobin Concent 2019-07-04 06:02:00* Test Item Value Reference Range Interpretation Comments Mean Corpuscular Hemoglobin Concent (test code = 786-4) 32.0 31-35 [facility] HospitalRed Cell Distribution Xjygq8513-15-80 06:02:00* Test Item Value Reference Range Interpretation Comments Red Cell Distribution Width (test code = 60853-6) 15.9 11.7 -14.4 H [facility] HospitalPlatelet Adpqv2069-16-34 06:02:00* Test Item Value Reference Range Interpretation Comments Platelet Count (test code = 777-3) 197 140-360 [facility] HospitalNeutrophils (%) (Auto)2019-07-04 06:02:00 * Test Item Value Reference Range Interpretation Comments Neutrophils (%) (Auto) (test code = 24961-5) 47.9 38.7-80.0 [facility] HospitalLymphocytes (%) (Auto)2019-07-04 06:02:00 * Test Item Value Reference Range Interpretation Comments Lymphocytes (%) (Auto) (test code = 736-9) 34.5 18.0-39.1 [facility] HospitalMonocytes (%) (Auto)2019-07-04 06:02:00* Test Item Value Reference Range Interpretation Comments Monocytes (%) (Auto) (test code = 5905-5) 11.8 4.4-11.3 H [facility] HospitalEosinophils (%) (Auto)2019-07-04 06:02:00 * Test Item Value Reference Range Interpretation Comments Eosinophils (%) (Auto) (test code = 713-8) 4.8 0.0-6.0 [facility] HospitalBasophils (%) (Auto)2019-07-04 06:02:00* Test Item Value Reference Range Interpretation Comments Basophils (%) (Auto) (test code = 706-2) 0.8 0.0-1.0 [facility] HospitalIM GRANULOCYTES %2019-07-04 06:02:00* Test Item Value Reference Range Interpretation Comments IM GRANULOCYTES % (test code = IM GRANULOCYTES %) 0.2 0.0- 1.0 [facility] HospitalNeutrophils # (Auto)2019-07-04 06:02:00* Test Item Value Reference Range Interpretation Comments Neutrophils # (Auto) (test code = 751-8) 2.5 2.1-6.9 [facility] HospitalLymphocytes # (Auto)2019-07-04 06:02:00* Test Item Value Reference Range Interpretation Comments Lymphocytes # (Auto) (test code = 08882-2) 1.8 1.0-3.2 [facility] HospitalMonocytes # (Auto)2019-07-04 06:02:00* Test Item Value Reference Range Interpretation Comments Monocytes # (Auto) (test code = 742-7) 0.6 0.2-0.8 [facility] HospitalEosinophils # (Auto)2019-07-04 06:02:00* Test Item Value Reference Range Interpretation Comments Eosinophils # (Auto) (test code = 711-2) 0.3 0.0-0.4 [facility] HospitalBasophils # (Auto)2019-07-04 06:02:00* Test Item Value Reference Range Interpretation Comments Basophils # (Auto) (test code = 704-7) 0.0 0.0-0.1 [facility] HospitalAbsolute Immature Granulocyte (auto 2019-07-04 06:02:00* Test Item Value Reference Range Interpretation Comments Absolute Immature Granulocyte (auto (shaq t code = Absolute Immature Granulocyte (auto) 0.01 0-0.1 [facility] HospitalThyroid Stimulating Hormone (TSH) 2019-07-03 17:34:00* Test Item Value Reference Range Interpretation Comments Thyroid Stimulating Hormone (TSH) (test code = 45214-1) 2.566 0.350-4.940 [facility] HospitalB-Type Natriuretic Axlteql1403-70-50 17:18:00* Test Item Value Reference Range Interpretation Comments B-Type Natriuretic Peptide (test code = 05244-4) 69.5 0-100 [facility] HospitalUrine Bhpmt9907-67-87 17:06:00* Test Item Value Reference Range Interpretation Comments Urine Color (test code = 5778-6) YELLOW YELLOW [facility] HospitalUrine Rzoetcf1218-67-40 17:06:00* Test Item Value Reference Range Interpretation Comments Urine Clarity (test code = 77634-8) CLEAR CLEAR [facility] HospitalUrine Specific Bylrotx5580-70-63 17:06:00 * Test Item Value Reference Range Interpretation Comments Urine Specific Cornelius (test code = 5811-5) 1.015 1.010-1.02 5 [facility] HospitalUrine yQ8853-53-33 17:06:00* Test Item Value Reference Range Interpretation Comments Urine pH (test code = 93975-3) 6 5-7 [facility] HospitalUrine Leukocyte Qjyoetgy6597-92-40 17:06:00* Test Item Value Reference Range Interpretation Comments Urine Leukocyte Esterase (test code = 5799-2) NEGATIVE NEGATIVE [facility] HospitalUrine Bzeluyx4572-80-95 17:06:00* Test Item Value Reference Range Interpretation Comments Urine Nitrite (test code = 31843-5) NEGATIVE NEGATIVE [facility] HospitalUrine Kwzefgx1899-73-55 17:06:00* Test Item Value Reference Range Interpretation Comments Urine Protein (test code = 5804-0) NEGATIVE NEGATIVE [facility] HospitalUrine Glucose (UA)2019-07-03 17:06:00* Test Item Value Reference Range Interpretation Comments Urine Glucose (UA) (test code = 2349-9) NEGATIVE NEGATIVE [facility] HospitalUrine Ijqfera1830-22-82 17:06:00* Test Item Value Reference Range Interpretation Comments Urine Ketones (test code = 14759-7) NEGATIVE NEGATIVE [facility] HospitalUrine Opiates Vekspo8042-71-16 17:06:00* Test Item Value Reference Range Interpretation Comments Urine Opiates Screen (test code = 69222-1) NEGATIVE NEGATIVE ALL TESTS PERFORMED MANUALLY ON [employer] TOX/SEE TESTMemorial Hermann Northeast HospitalUrine Barbiturates Xxbxva6671-34-63 17:06:00* Test Item Value Reference Range Interpretation Comments Urine Barbiturates Screen (test code = 092986267) NEGATIVE NEGA TIVE [facility] HospitalUrine Phencyclidine Mazmve2711-00-15 17:06:00* Test Item Value Reference Range Interpretation Comments Urine Phencyclidine Screen (test code = 24773-4) NEGATIVE NEGAT SNEHAL [facility] HospitalUrine Amphetamines Yghcav4296-84-91 17:06:00* Test Item Value Reference Range Interpretation Comments Urine Amphetamines Screen (test code = 33579-8) NEGATIVE NEGATI VE [facility] HospitalUrine Methamphetamines Lysqdm0238-28-39 17:06:00* Test Item Value Reference Range Interpretation Comments Urine Methamphetamines Screen (test code = Urine Metha mphetamines Screen) NEGATIVE NEGATIVE [facility] HospitalUrine Benzodiazepines Kdtdsu6596-91-94 17:06:00* Test Item Value Reference Range Interpretation Comments Urine Benzodiazepines Screen (test code = 98552-0) NEGATIVE NEG ATIVE [facility] HospitalUrine Cocaine Xxzxot5091-24-29 17:06:00* Test Item Value Reference Range Interpretation Comments Urine Cocaine Screen (test code = 3398-5) NEGATIVE NEGATIVE [facility] HospitalUrine Cannabinoids Agavoy6087-92-29 17:06:00* Test Item Value Reference Range Interpretation Comments Urine Cannabinoids Screen (test code = 97589-0) NEGATIVE NEGATI VE THESE RESULTS ARE FOR MEDICAL TREATMENT ONLYTHIS REPORT CONTAINS UNCONFIR MED SCREENING RESULTS*POSITIVE RESULTS WILL BE CONFIRMED BY REFERENCE LAB UPON R EQUEST CUT-OFFDRUG CLASS CONCENTRATION ng/mLAmphetamines 1000Methamphetamines 1000Cocaine 300Opiate 300Phencyc lidine 25Cannabinoid 50Barbiturates 300Benzodiazepine 300Methadone 300[facility] Methadone Hvuwqx8933-57-49 17:06:00* Test Item Value Reference Range Interpretation Comments Urine Methadone Screen (test code = 11163-5) NEGATIVE NEGATIVE THESE RESULTS ARE FOR MEDICAL TREATMENT ONLYTHIS REPORT CONTAINS UNCONFIR MED SCREENING RESULTS*POSITIVE RESULTS WILL BE CONFIRMED BY REFERENCE LAB UPON R EQUEST CUT-OFFDRUG CLASS CONCENTRATION ng/mLAmphetamines 1000Methamphetamines 1000Cocaine Metabolite 300Opiate 300Phencyc lidine 25Cannabinoid 50Barbiturates 300Benzodiazepine 300Methadone 300[facility] HospitalUrine Yqbtsqnwzpjf2903-66-68 17:06:00* Test Item Value Reference Range Interpretation Comments Urine Urobilinogen (test code = 58881-7) 0.2 0.2-1 [facility] HospitalUrine Fztcgvxgj2332-41-79 17:06:00* Test Item Value Reference Range Interpretation Comments Urine Bilirubin (test code = 1978-6) NEGATIVE NEGATIVE [facility] HospitalUrine Rxtat4903-65-47 17:06:00* Test Item Value Reference Range Interpretation Comments Urine Blood (test code = 36980-2) NEGATIVE NEGATIVE [facility] HospitalUrine [id number] 17:06:00* Test Item Value Reference Range Interpretation Comments Urine WBC (test code = 5821-4) 0-5 0-5 [facility] HospitalUrine [id number] 17:06:00* Test Item Value Reference Range Interpretation Comments Urine RBC (test code = 00266-4) 0-5 0-5 [facility] HospitalUrine Vjjryjgx7450-11-60 17:06:00* Test Item Value Reference Range Interpretation Comments Urine Bacteria (test code = 90319-8) RARE NONE [facility] HospitalUrine Epithelial Dkqat1145-74-43 17:06:00 * Test Item Value Reference Range Interpretation Comments Urine Epithelial Cells (test code = 76097-8) FEW NONE [facility] HospitalProthrombin Uzws6020-04-17 17:04:00* Test Item Value Reference Range Interpretation Comments Prothrombin Time (test code = 5902-2) 15.7 11.9-14.5 H [facility] HospitalProthromb Time International Ratio 2019-07-03 17:04:00* Test Item Value Reference Range Interpretation Comments Prothromb Time International Ratio (test code = 6301-6) 1.19 Oral Anticoagulant Therapy INR Values:1. Low Intensity Therapy 1.5 - 2.02 . Moderate Intensity Therapy 2.0 - 3.03. High Intensity Therapy(1) 2.5 - 3. 54. High Intensity Therapy(2) 3.0 - 4.05. Panic Value INR > 5.0 [facility] HospitalActivated Partial Thromboplast Time 2019-07-03 17:04:00* Test Item Value Reference Range Interpretation Comments Activated Partial Thromboplast Time (test code = 42911-1) 32.6 23.8-35.5 [facility] HospitalCHEST SINGLE (PORTABLE)2019-07-03 14:51:00 [place] [address] Patient Name: ÁNGELA WASHINGTON MR #: [id number] : 1935 Age/Sex: 83/F Req #: [id number] Adm Physician: Ordered by: BLAIR MUNIZ ENTRY MANAGER Report #: [id number] Location: ER Room/Bed: Procedure: [id number] DX/CH EST SINGLE (PORTABLE) Exam Date: 07/03/19 Exam Time: 1425 REPORT STATUS: Signed EXAM INATION: CHEST SINGLE (PORTABLE) INDICATION: Dizziness. COMPARISO N: Chest radiograph of 04/12/2019. FINDINGS: LINES/TUBES:Left-side d single lead chest pacer unchanged. LUNGS:The lungs are moderately inflat ed. Costophrenic granuloma in the right upper lobe, unchanged. There is perihi lar fullness and indistinctness of the pulmonary vasculature. Mild bibasilar s ubsegmental atelectasis. PLEURA:No pleural effusion or pneumothorax. MEDIASTINUM:Cardiomediastinal silhouette is stably enlarged. Postoperative fin dings of prior CABG. BONES/SOFT TISSUES:No acute osseous injury. ABDOM EN:No free air under the diaphragm. IMPRESSION: Mild bilateral pulmon lelo venous congestion. Signed by: Dr. Sherri Thao M.D. on 07/03/19 2:53 PM Dictated By: ISABELA THAO MD, MD 52 Transcribed By: MALIA on 07/03/191452 COPY TO: BLAIR MUNIZ NP CT BRAIN [id number] 14:46:00 [place] [address] Patient Name: ÁNGELA WASHINGTON MR #: [id number] : 1935 Age/Sex: 83/F Req #: [id number] Adm Physician: Ordered by: BLAIR MUNIZ ENTRY MANAGER Report #: [id number] Location: ER Room/Bed: Procedure: [id number] CT/CT BRAIN WO Exam Date: 07/03/19 Exam Time: 1425 REPORT STATUS: Signed Exam: Head CT wi thout contrast History: Dizziness Comparison studies: Head CT 06/28/2019 an d 04/13/2019. Technique: Axial images were obtained from the skull base to the vertex. Coronal and sagittal images reconstructed from the axial data. D ose modulation, iterative reconstruction, and/or weight based adjustment of th e mA/kV was utilized to reduce the radiation dose to as low as reasonably ac hievable. Radiation dose: Total DLP: 921.4 mGy*cm. Estimated effect snehal dose: DLP x 0.015 Intravenous contrast: None Findings: Scalp: N o abnormalities. Bones: No fractures, blastic or lytic lesions. Brain sul ci: Mild prominent. Ventricles: Mild compensatory dilatation. No hydrocephalus . Extra-axial spaces: No masses, no fluid collection. Parenchyma: No mass, acute hemorrhage or acute cortical insults. Unchanged chronic left MCA i nfarct with encephalomalacia and gliosis throughout the left parietal lobe, al rula the perirolandic gyri, posterior left frontal lobe and left temporal lobe. Unchanged posterior midline cerebellar insult with encephalomalacia centered within the vermis. A few scattered hypodensities in the supratentorial whi te matter are nonspecific but are most compatible with chronic microvascular i schemic changes. Sellar/suprasellar region: No abnormalities. Craniocer vical junction: Patent foramen magnum. No Chiari one malformation. Included paranasal sinuses: Clear. Middle ear and included mastoid cavities: Clear. Incidental findings: Intraocular lens replacement for previous cataract borjas rgery. Atherosclerotic calcifications in the carotid siphons and intradural ve rtebral arteries. IMPRESSION: No acute intracranial abnormalities. Chronic findings: 1. Mild generalized parenchymal volume loss. 2. Mild chronic microvascular ischemic changes. 3. 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 Signed by: Dr. Nkechi Swenson M.D. on 06/10 2:53 PM Dictated By: NKECHI SWENSON MD 52 Transcribed By: MALIA on 07/03/191452 COPY TO: BLAIR MUNIZ NP Levetiracetam (Keppra) Cyyhf0288-90-51 07:33:00* Test Item Value Reference Range Interpretation Comments Levetiracetam (Keppra) Level (test code = 10566-5) 26.8 10. 0-40.0 This test was developed and its performance characteristicsdetermined by [facility] . It has not been cleared orapproved by the Food and Drug Administration.Perform ed at: [address] [id number] Dir bry: Jerson Pollard MD, Phone: [phone] Hermann Northeast HospitalMagnesium Dzzrh0384-70-43 14:36:00* Test Item Value Reference Range Interpretation Comments Magnesium Level (test code = 34858-6) 1.9 1.3-2.1 [facility] HospitalMagnesium Eyeoo0915-78-70 14:36:00* Test Item Value Reference Range Interpretation Comments Magnesium Level (test code = 19541-1) 1.9 1.3-2.1 [facility] District[facility] Nhzgi3668-26-62 08:48:00* Test Item Value Reference Range Interpretation Comments Sodium Level (test code = 2951-2) 141 136-145 [facility] HospitalPotassium Wwgos4937-08-95 08:48:00* Test Item Value Reference Range Interpretation Comments Potassium Level (test code = 2823-3) 4.5 3.5-5.1 [facility] HospitalChloride Tsrcq8292-09-78 08:48:00* Test Item Value Reference Range Interpretation Comments Chloride Level (test code = 2075-0) 103 98-107 [facility] HospitalCarbon Dioxide Twyaz1167-43-35 08:48:00* Test Item Value Reference Range Interpretation Comments Carbon Dioxide Level (test code = 2028-9) 29 22-29 [facility] HospitalAnion Drd3994-36-51 08:48:00* Test Item Value Reference Range Interpretation Comments Anion Gap (test code = 73076-3) 13.5 8-16 [facility] HospitalBlood Urea Kajbnrhl9443-39-04 08:48:00* Test Item Value Reference Range Interpretation Comments Blood Urea Nitrogen (test code = 3094-0) 19 7-26 [facility] HospitalCreatinine2020-01-21 08:48:00* Test Item Value Reference Range Interpretation Comments Creatinine (test code = 2160-0) 1.00 0.57-1.11 [facility] HospitalBUN/Creatinine Aqkvl4117-72-45 08:48:00* Test Item Value Reference Range Interpretation Comments BUN/Creatinine Ratio (test code = 3097-3) 19 6-25 [facility] HospitalEstimat Glomerular Filtration Rate 2019-06-29 08:48:00* Test Item Value Reference Range Interpretation Comments Estimat Glomerular Filtration Rate (test code = 004190080) 53 >60 L Ranges were taken from the National Kidney Disease Education Program and the [facility] literature.Reference ranges:60 or greater: Ujosod69-03 ( for 3 consecutive months): Chronic kidney disease 15 or less: Kidney failureMemorial Hermann Northeast HospitalGlucose Ojdnc5631-93-01 08:48:00* Test Item Value Reference Range Interpretation Comments Glucose Level (test code = DLI2871) 174 74-118 H [facility] HospitalCalcium Hsyea7175-23-28 08:48:00* Test Item Value Reference Range Interpretation Comments Calcium Level (test code = 40333-2) 9.0 8.4-10.2 [facility] HospitalWhite Blood Pbukc9585-08-27 08:28:00* Test Item Value Reference Range Interpretation Comments White Blood Count (test code = 6690-2) 6.05 4.8-10.8 [facility] HospitalRed Blood Whyxb6301-80-17 08:28:00* Test Item Value Reference Range Interpretation Comments Red Blood Count (test code = 789-8) 4.37 3.6-5.1 [facility] HospitalHemoglobin2020-01-21 08:28:00* Test Item Value Reference Range Interpretation Comments Hemoglobin (test code = 95741-4) 12.4 12.0-16.0 [facility] HospitalHematocrit2020-01-21 08:28:00* Test Item Value Reference Range Interpretation Comments Hematocrit (test code = 4544-3) 39.3 34.2-44.1 [facility] HospitalMean Corpuscular Wozcxi9627-04-48 08:28:00* Test Item Value Reference Range Interpretation Comments Mean Corpuscular Volume (test code = 787-2) 89.9 81-99 [facility] HospitalMean Corpuscular Emwugellwn3705-45-21 08:28:00* Test Item Value Reference Range Interpretation Comments Mean Corpuscular Hemoglobin (test code = 785-6) 28.4 28-32 [facility] HospitalMean Corpuscular Hemoglobin Concent 2019-06-29 08:28:00* Test Item Value Reference Range Interpretation Comments Mean Corpuscular Hemoglobin Concent (test code = 786-4) 31.6 31-35 [facility] HospitalRed Cell Distribution Rpvpk6871-30-82 08:28:00* Test Item Value Reference Range Interpretation Comments Red Cell Distribution Width (test code = 85677-4) 16.3 11.7 -14.4 H [facility] HospitalPlatelet Dowoq3869-97-71 08:28:00* Test Item Value Reference Range Interpretation Comments Platelet Count (test code = 777-3) 199 140-360 [facility] HospitalNeutrophils (%) (Auto)2019-06-29 08:28:00 * Test Item Value Reference Range Interpretation Comments Neutrophils (%) (Auto) (test code = 83727-1) 57.7 38.7-80.0 [facility] HospitalLymphocytes (%) (Auto)2019-06-29 08:28:00 * Test Item Value Reference Range Interpretation Comments Lymphocytes (%) (Auto) (test code = 736-9) 28.3 18.0-39.1 [facility] HospitalMonocytes (%) (Auto)2019-06-29 08:28:00* Test Item Value Reference Range Interpretation Comments Monocytes (%) (Auto) (test code = 5905-5) 9.9 4.4-11.3 [facility] HospitalEosinophils (%) (Auto)2019-06-29 08:28:00 * Test Item Value Reference Range Interpretation Comments Eosinophils (%) (Auto) (test code = 713-8) 3.0 0.0-6.0 [facility] HospitalBasophils (%) (Auto)2019-06-29 08:28:00* Test Item Value Reference Range Interpretation Comments Basophils (%) (Auto) (test code = 706-2) 0.8 0.0-1.0 [facility] HospitalIM GRANULOCYTES %2019-06-29 08:28:00* Test Item Value Reference Range Interpretation Comments IM GRANULOCYTES % (test code = IM GRANULOCYTES %) 0.3 0.0- 1.0 [facility] HospitalNeutrophils # (Auto)2019-06-29 08:28:00* Test Item Value Reference Range Interpretation Comments Neutrophils # (Auto) (test code = 751-8) 3.5 2.1-6.9 [facility] HospitalLymphocytes # (Auto)2019-06-29 08:28:00* Test Item Value Reference Range Interpretation Comments Lymphocytes # (Auto) (test code = 21272-9) 1.7 1.0-3.2 [facility] HospitalMonocytes # (Auto)2019-06-29 08:28:00* Test Item Value Reference Range Interpretation Comments Monocytes # (Auto) (test code = 742-7) 0.6 0.2-0.8 [facility] HospitalEosinophils # (Auto)2019-06-29 08:28:00* Test Item Value Reference Range Interpretation Comments Eosinophils # (Auto) (test code = 711-2) 0.2 0.0-0.4 [facility] HospitalBasophils # (Auto)2019-06-29 08:28:00* Test Item Value Reference Range Interpretation Comments Basophils # (Auto) (test code = 704-7) 0.1 0.0-0.1 [facility] HospitalAbsolute Immature Granulocyte (auto 2019-06-29 08:28:00* Test Item Value Reference Range Interpretation Comments Absolute Immature Granulocyte (auto (shaq t code = Absolute Immature Granulocyte (auto) 0.02 0-0.1 [facility] HospitalUrine YYL6553-48-05 15:58:00* Test Item Value Reference Range Interpretation Comments Urine WBC (test code = 5821-4) NONE 0-5 [facility] HospitalUrine PZG7066-38-63 15:58:00* Test Item Value Reference Range Interpretation Comments Urine RBC (test code = 38207-1) NONE 0-5 [facility] HospitalUrine Wmzbqxqs8610-26-14 15:58:00* Test Item Value Reference Range Interpretation Comments Urine Bacteria (test code = 41885-6) NONE NONE [facility] HospitalUrine Epithelial Lzhji2933-68-00 15:58:00 * Test Item Value Reference Range Interpretation Comments Urine Epithelial Cells (test code = 14172-3) NONE NONE [facility] HospitalUrine Zesva6991-98-60 15:45:00* Test Item Value Reference Range Interpretation Comments Urine Color (test code = 5778-6) YELLOW YELLOW [facility] HospitalUrine Wpglbta1713-45-21 15:45:00* Test Item Value Reference Range Interpretation Comments Urine Clarity (test code = 25374-2) CLEAR CLEAR [facility] Specific Zrnlhlp6841-80-49 15:45:00 * Test Item Value Reference Range Interpretation Comments Urine Specific Cornelius (test code = 5811-5) 1.015 1.010-1.02 5 [facility] HospitalUrine pC4515-32-23 15:45:00* Test Item Value Reference Range Interpretation Comments Urine pH (test code = 70443-8) 6.5 5-7 [facility] HospitalUrine Leukocyte Efhnrbbi9262-74-02 15:45:00* Test Item Value Reference Range Interpretation Comments Urine Leukocyte Esterase (test code = 5799-2) NEGATIVE NEGATIVE [facility] HospitalUrine Vndrdvo6054-56-87 15:45:00* Test Item Value Reference Range Interpretation Comments Urine Nitrite (test code = 93936-1) NEGATIVE NEGATIVE [facility] HospitalUrine Yqhryel2368-10-74 15:45:00* Test Item Value Reference Range Interpretation Comments Urine Protein (test code = 5804-0) NEGATIVE NEGATIVE [facility] HospitalUrine Glucose (UA)2019-06-28 15:45:00* Test Item Value Reference Range Interpretation Comments Urine Glucose (UA) (test code = 2349-9) NEGATIVE NEGATIVE [facility] HospitalUrine Ownsslj6673-42-33 15:45:00* Test Item Value Reference Range Interpretation Comments Urine Ketones (test code = 55109-6) NEGATIVE NEGATIVE [facility] HospitalUrine Otgvtkrqnoas1439-37-58 15:45:00* Test Item Value Reference Range Interpretation Comments Urine Urobilinogen (test code = 91215-0) 0.2 0.2-1 [facility] HospitalUrine Nsexcoxlz6764-52-06 15:45:00* Test Item Value Reference Range Interpretation Comments Urine Bilirubin (test code = 1978-6) NEGATIVE NEGATIVE [facility] HospitalUrine Scdtc6967-08-73 15:45:00* Test Item Value Reference Range Interpretation Comments Urine Blood (test code = 39599-7) NEGATIVE NEGATIVE [facility] HospitalCT ABDOMEN/PELVIS BP1556-21-00 14:41:00 [facility] [address] [address] Patient Name: ÁNGELA WASHINGTON MR #: [id number] : 1935 Age/Sex: 83/F Req #: [id number] Adm Physician: Ordered by: ABILIO DE LA CRUZ MD Report #: [id number] Location: ER Room/Bed: Procedure: [id number] CT/CT ABDOMEN/PELVIS WO Exam Date: 06/28/19 Exam Time: 22 06 REPORT STATUS: Signed EXAM: C T Abdomen and Pelvis WITHOUT intravenous contrast INDICATION: Fall, seizu re COMPARISON: CTA abdomen and pelvis of 01/04/2019 TECHNIQUE: Abdomen and pelvis were scanned utilizing a multidetector helical scanner from the josemanuel g base to the pubic symphysis without administration of IV contrast. Coronal a nd sagittal reformations were obtained. IV CONTRAST: None ORAL CONT RAST: None COMPLICATIONS: None RADIATION DOSE: Total DLP : 777.4 mGy*cm Dose modulation, iterative reconstruction, and/or weight ba sed adjustment of the mA/kV was utilized to reduce the radiation dose to as lo w as reasonably achievable. FINDINGS: LOWER THORAX: Mild subsegmental atelectasis. HEPATOBILIARY: Scattered punctate calcified granulomas in the liver. No other focal liver lesions. Status post cholecystectomy. SPLEEN: Numerous punctate calcified granulomas in the nonenlarged spleen. PANCREAS: No focal masses or ductal dilatation. ADRENALS: No adrenal nodules. KID NEYS/URETERS: No hydronephrosis or hydroureter. No renal calculi. No solid mas s lesions. PELVIC ORGANS/BLADDER: Unremarkable. PERITONEUM / RETROPERITON EUM: No free air or fluid. LYMPH NODES: No lymphadenopathy. VESSELS: Diffuse atherosclerotic calcifications of the nonaneurysmal abdominal aorta and major branches. GI TRACT: Severe sigmoid diverticulosis. No CT evidence of diver ticulitis. No abnormal bowel thickening. No bowel obstruction. BONES AND SOFT TISSUES: No suspicious lytic or blastic lesions. Mild diffuse osteopenia. Grade 1 anterolisthesis at L4-5. IMPRESSION: No acute osseous injury. Severe sigmoid diverticulosis. No CT evidence of diverticulitis. No renal calculi or hydronephrosis. Signed by: Marleni Ventura MD on 06/28/2019 2:47 PM Dictated By: MARLENI VENTURA MD 1447 Transcribed By: MALIA on 06/28/19 1447 COPY TO: ABILIO KIMBROUGH MD Total Swwlnleii2863-98-27 14:28:00* Test Item Value Reference Range Interpretation Comments Total Bilirubin (test code = 1975-2) 0.4 0.2-1.2 [facility] HospitalAspartate Amino Transf (AST/SGOT) 2019-06-28 14:28:00* Test Item Value Reference Range Interpretation Comments Aspartate Amino Transf (AST/SGOT) (test code = Aspartate Amino Transf (AST/SGOT)) 18 5-34 [facility] HospitalAlanine Aminotransferase (ALT/SGPT) 2019-06-28 14:28:00* Test Item Value Reference Range Interpretation Comments Alanine Aminotransferase (ALT/SGPT) (test code = 1742-6) 20 0-55 [facility] HospitalTotal Lniyvpr8113-64-47 14:28:00* Test Item Value Reference Range Interpretation Comments Total Protein (test code = 2885-2) 7.1 6.5-8.1 [facility] HospitalAlbumin2020-01-20 14:28:00* Test Item Value Reference Range Interpretation Comments Albumin (test code = 1751-7) 3.5 3.5-5.0 [facility] HospitalGlobulin2020-01-20 14:28:00* Test Item Value Reference Range Interpretation Comments Globulin (test code = 83054-3) 3.6 2.3-3.5 H [facility] HospitalAlbumin/Globulin Cnzyr8295-49-31 14:28:00 * Test Item Value Reference Range Interpretation Comments Albumin/Globulin Ratio (test code = 1759-0) 1.0 0.8-2.0 [facility] HospitalAlkaline Kckmknhzldm9894-28-97 14:28:00* Test Item Value Reference Range Interpretation Comments Alkaline Phosphatase (test code = 6768-6) 85 40-150 [facility] HospitalAmylase Kfugz7429-12-79 14:28:00* Test Item Value Reference Range Interpretation Comments Amylase Level (test code = 1798-8) 38 25-125 [facility] HospitalLipase2020-01-20 14:28:00* Test Item Value Reference Range Interpretation Comments Lipase (test code = 3040-3) 48 8-78 [facility] HospitalAmylase Egvuj4380-16-20 14:28:00* Test Item Value Reference Range Interpretation Comments Amylase Level (test code = 1798-8) 38 25-125 [facility] HospitalLipase2020-01-20 14:28:00* Test Item Value Reference Range Interpretation Comments Lipase (test code = 3040-3) 48 8-78 [facility] HospitalCT CERVICAL SPINE JM0781-15-00 14:21:00 [facility] [address] [address] Patient Name: ÁNGELA WASHINGTON MR #: [id number] : 1935 Age/Sex: 83/F Req #: [id number] Adm Physician: Ordered by: ABILIO DE LA CRUZ MD Report #: [id number] Location: ER Room/Bed: Procedure: [id number] CT/CT CERVICAL SPINE WO Exam Date: 06/28/19 Exam Time: 22 06 REPORT STATUS: Signed EXAMINA TION: Head and cervical spine CT without contrast. HISTORY: Status post f all, seizure COMPARISON: Head CT 04/23/2019 TECHNIQUE: Multidetector axial i mages were obtained without contrast from the foramen magnum to the vertex and through the cervical spine. The images were reconstructed using brain and bone algorithms. Thin section brain images were reformatted into coronal and sag ittal planes. Dose modulation, iterative reconstruction, and/or weight based a djustment of the mA/kV was utilized to reduce the radiation dose to as low as reasonably achievable. HEAD CT FINDINGS: Skull/scalp: No lytic or blastic lesions. No fractures. Parenchyma: Old large left middle cer ebral artery territory infarct has not significantly changed. Old focal crew leader gluing ior paravermian cerebellar cortical infarct is also unchanged. Mild bilateral deep white matter hypodensity is likely chronic microvascular ischemic change. No mass, hemorrhage or CT evidence of acute vascular insult. Brain volume: Normal for age. Ventricles: No hydrocephalus or displacement. Arteries: No density suggestive of thrombus. Dural sinuses: No ab normal density. Extra-axial spaces: No abnormal density. Foramen magnum: No mass, Chiari malformation, or basilar invagination. Sella: No obvious mass. Paranasal/mastoid sinuses: Imaged portions unremarkable. CERVICAL SPINE CT FINDINGS: Alignment:Normal alignment and lordosis. Soft tissues: Normal. Vertebrae: Normal height and density. No acute fracture, infection or neoplasm. Degenerative changes: C1-C2: Mild degenerative changes without stenoses C2-C3: Normal C3-C4: Normal C4-C5: Small disc osteophyte complex formation, bilateral uncovertebral and facet arthrosis. No significant foraminal stenoses. Minimal canal narrowing. C5-C6: Disc osteophyte complex formation, bilateral uncovertebral and facet arthrosis. Moderate left foraminal stenosis. C6-C7: Disc osteophyte complex formation, bilateral uncovertebral and facet arthrosis. Minimal bilateral foraminal narrowing. Mild canal stenosis. C7-T1: Facet arthrosis on the left side without stenosis. Incidental findings: Partially visualized proba ble left central venous line. IMPRESSION: Head CT: 1. No acute post raumatic intracranial hemorrhage. 2. Unchanged large left MCA and vermian chr onic infarcts. 3. Mild chronic microvascular ischemic changes. Cervical spine CT: 1. No acute fractures or dislocations. 2. Chronic degenerative c hanges as described. Note: Acute post traumatic spinal cord, vascular or li gamentous injury cannot adequately be assessed with CT. Signed by: Dr. Dustin Serra M.D. on 06/28/2019 2:29 PM Dictated By: DUSTIN SERRA MD Elec tronically Signed By: DUSTIN SERRA MD on 06/28/19 142 Transcribed By: MALIA broussard 06/28/19 142 COPY TO: ABILIO DE LA CRUZ MD CT BRAIN WO 2019-06-28 14:21:00 [address] [address] Patient Name: ÁNGELA WASHINGTON MR #: [id number] : 1935 Age/Sex: 83/F Req #: [id number] Adm Physician: Ordered by: ABILIO DE LA CRUZ MD Report #: [id number] Location: ER Room/Bed: Procedure: [id number] CT/CT BRAIN WO Exam Date: 06/28/19 Exam Time: 1401 REPORT STATUS: Signed EXAMINATION: Head and cervical spine CT without contrast. HISTORY: Status post fall, seiz ure COMPARISON: Head CT 04/23/2019 TECHNIQUE: Multidetector axial images wer e obtained without contrast from the foramen magnum to the vertex and through the cervical spine. The images were reconstructed using brain and bone algorit hms. Thin section brain images were reformatted into coronal and sagittal trinity izabel. Dose modulation, iterative reconstruction, and/or weight based adjustment of the mA/kV was utilized to reduce the radiation dose to as low as reasonably achievable. HEAD CT FINDINGS: Skull/scalp: No lytic or blastic lesions. No fractures. Parenchyma: Old large left middle cerebral art shala territory infarct has not significantly changed. Old focal posterior parav ermian cerebellar cortical infarct is also unchanged. Mild bilateral deep whit e matter hypodensity is likely chronic microvascular ischemic change. No mass , hemorrhage or CT evidence of acute vascular insult. Brain volume: N ormal for age. Ventricles: No hydrocephalus or displacement. Ar teries: No density suggestive of thrombus. Dural sinuses: No abnormal de nsity. Extra-axial spaces: No abnormal density. Foramen magnum: No mass, Chiari malformation, or basilar invagination. Sella: No obvious mass. Paranasal/mastoid sinuses: Imaged portions unremarkable. C ERVICAL SPINE CT FINDINGS: Alignment:Normal alignment and lordosis. Soft tissues: Normal. Vertebrae: Normal height and density. No acute frac ture, infection or neoplasm. Degenerative changes: C1-C2: Mild de generative changes without stenoses C2-C3: Normal C3-C4: Normal C 4-C5: Small disc osteophyte complex formation, bilateral uncovertebral and fac et arthrosis. No significant foraminal stenoses. Minimal canal narrowing. C 5-C6: Disc osteophyte complex formation, bilateral uncovertebral and facet art hrosis. Moderate left foraminal stenosis. C6-C7: Disc osteophyte complex fo rmation, bilateral uncovertebral and facet arthrosis. Minimal bilateral forami nal narrowing. Mild canal stenosis. C7-T1: Facet arthrosis on the left side without stenosis. Incidental findings: Partially visualized probable left central venous line. IMPRESSION: Head CT: 1. No acute postraumatic intracranial hemorrhage. 2. Unchanged large left MCA and vermian chronic infa rcts. 3. Mild chronic microvascular ischemic changes. Cervical spine CT: 1. No acute fractures or dislocations. 2. Chronic degenerative changes as described. Note: Acute post traumatic spinal cord, vascular or ligamentous injury cannot adequately be assessed with CT. Signed by: Dr. Dustin holly M.D. on 06/28/2019 2:29 PM Dictated By: DUSTIN SERRA MD [facility] y Signed By: DUSTIN SERRA MD on 06/28/19 142 Transcribed By: MALIA on 0 1429 COPY TO: ABILIO DE LA CRUZ MD Bedside Wawusdi0620-98-63 12:01:00* Test Item Value Reference Range Interpretation Comments Bedside Glucose (test code = 51485-2) 175 70-120 H Meter ID: [id number] [facility]ann [facility] HospitalBedside Glucose 2019-04-14 12:01:00* Test Item Value Reference Range Interpretation Comments Bedside Glucose (test code = 72915-5) 175 70-120 H Meter ID: [id number] Hermann Northeast HospitalThyroid Stimulating Hormone (TSH)2019-04-13 08:14:00* Test Item Value Reference Range Interpretation Comments Thyroid Stimulating Hormone (TSH) (test code = 29872-6) 3.063 0.350-4.940 [facility] HospitalThyroid Stimulating Hormone (TSH) 2019-04-13 08:14:00* Test Item Value Reference Range Interpretation Comments Thyroid Stimulating Hormone (TSH) (test code = 72482-5) 3.063 0.350-4.940 [facility] HospitalTriglycerides Xmhgu2522-34-82 07:47:00* Test Item Value Reference Range Interpretation Comments Triglycerides Level (test code = 2571-8) 97 0-149 [facility] HospitalCholesterol Segmm6137-08-61 07:47:00* Test Item Value Reference Range Interpretation Comments Cholesterol Level (test code = 2093-3) 94 0-199 Less than 200 mg/dL Low Cboj342 - 239 mg/dL Borderline Ipkr202 m g/dl and greater High Risk [facility] HospitalLDL Hhbzmbzbuak7544-17-43 07:47:00* Test Item Value Reference Range Interpretation Comments LDL Cholesterol (test code = 2089-1) 49 60-130 L [facility] HospitalHDL Jxegbupeyzu0095-72-01 07:47:00* Test Item Value Reference Range Interpretation Comments HDL Cholesterol (test code = 2085-9) 26 40-60 L [facility] HospitalCholesterol/HDL Lpsal3404-82-01 07:47:00 * Test Item Value Reference Range Interpretation Comments Cholesterol/HDL Ratio (test code = 9830-1) 3.6 3.0-3.6 [facility] HospitalLipase2019-11-05 07:47:00* Test Item Value Reference Range Interpretation Comments Lipase (test code = 3040-3) 32 8-78 [facility] HospitalTriglycerides Szqxg1679-74-76 07:47:00* Test Item Value Reference Range Interpretation Comments Triglycerides Level (test code = 2571-8) 97 0-149 [facility] HospitalCholesterol Vtorf7156-16-18 07:47:00* Test Item Value Reference Range Interpretation Comments Cholesterol Level (test code = 2093-3) 94 0-199 Less than 200 mg/dL Low Bcgp650 - 239 mg/dL Borderline Yalv832 m g/dl and greater High Risk [facility] HospitalLDL Okgogecuibk3717-43-16 07:47:00* Test Item Value Reference Range Interpretation Comments LDL Cholesterol (test code = 2089-1) 49 60-130 L [facility] Aamssvnxbph4954-56-78 07:47:00* Test Item Value Reference Range Interpretation Comments HDL Cholesterol (test code = 2085-9) 26 40-60 L [facility] HospitalCholesterol/HDL Ppouo9027-23-61 07:47:00 * Test Item Value Reference Range Interpretation Comments Cholesterol/HDL Ratio (test code = 9830-1) 3.6 3.0-3.6 [facility] HospitalTriglycerides Hcqvv5649-39-70 07:47:00* Test Item Value Reference Range Interpretation Comments Triglycerides Level (test code = 2571-8) 97 0-149 [facility] HospitalCholesterol Lpjlb1870-92-35 07:47:00* Test Item Value Reference Range Interpretation Comments Cholesterol Level (test code = 2093-3) 94 0-199 Less than 200 mg/dL Low Znbl290 - 239 mg/dL Borderline Zjcc075 m g/dl and greater High Risk [facility] HospitalLDL Ztwkfexqwiw6116-25-39 07:47:00* Test Item Value Reference Range Interpretation Comments LDL Cholesterol (test code = 2089-1) 49 60-130 L [facility] HospitalHDL Tkvtwtkwbkr2648-60-52 07:47:00* Test Item Value Reference Range Interpretation Comments HDL Cholesterol (test code = 2085-9) 26 40-60 L [facility] HospitalCholesterol/HDL Qcclp7359-90-80 07:47:00 * Test Item Value Reference Range Interpretation Comments Cholesterol/HDL Ratio (test code = 9830-1) 3.6 3.0-3.6 [facility] District[facility] Kxkoq8706-23-96 07:08:00* Test Item Value Reference Range Interpretation Comments Sodium Level (test code = 2951-2) 141 136-145 [facility] HospitalPotassium Isbte3664-97-31 07:08:00* Test Item Value Reference Range Interpretation Comments Potassium Level (test code = 2823-3) 4.0 3.5-5.1 [facility] HospitalChloride Dyjcf6052-00-05 07:08:00* Test Item Value Reference Range Interpretation Comments Chloride Level (test code = 2075-0) 108 98-107 H [facility] HospitalCarbon Dioxide Txsox2210-18-32 07:08:00* Test Item Value Reference Range Interpretation Comments Carbon Dioxide Level (test code = 2028-9) 25 22-29 [facility] HospitalAnion Fvh4482-64-66 07:08:00* Test Item Value Reference Range Interpretation Comments Anion Gap (test code = 34237-4) 12.0 8-16 [facility] HospitalBlood Urea Rpetxmyq1280-39-21 07:08:00* Test Item Value Reference Range Interpretation Comments Blood Urea Nitrogen (test code = 3094-0) 9 7-26 [facility] HospitalCreatinine2019-11-05 07:08:00* Test Item Value Reference Range Interpretation Comments Creatinine (test code = 2160-0) 0.80 0.57-1.11 [facility] HospitalBUN/Creatinine Ekfod3424-51-74 07:08:00* Test Item Value Reference Range Interpretation Comments BUN/Creatinine Ratio (test code = 3097-3) 11 6-25 [facility] HospitalEstimat Glomerular Filtration Rate 2019-04-13 07:08:00* Test Item Value Reference Range Interpretation Comments Estimat Glomerular Filtration Rate (test code = 201398103) > 60 >60 Ranges were taken from the National Kidney Disease Education Program and the [facility] Kidney Foundation literature.Reference ranges:60 or greater: Jrwgpe26-27 ( for 3 consecutive months): Chronic kidney disease 15 or less: Kidney failureMemorial Hermann Northeast HospitalGlucose Ozuoy2693-74-43 07:08:00* Test Item Value Reference Range Interpretation Comments Glucose Level (test code = AUA8925) 85 74-118 [facility] HospitalCalcium Wsszl5865-65-84 07:08:00* Test Item Value Reference Range Interpretation Comments Calcium Level (test code = 32321-0) 8.6 8.4-10.2 [facility] HospitalHemoglobin A1c Vgwysdi9979-00-06 07:07:00 * Test Item Value Reference Range Interpretation Comments Hemoglobin A1c Percent (test code = Hemoglobin A1c Percent) 6.3 4.0-7.0 [facility] HospitalHemoglobin A1c Wjcllvr6049-05-89 07:07:00 * Test Item Value Reference Range Interpretation Comments Hemoglobin A1c Percent (test code = Hemoglobin A1c Percent) 6.3 4.0-7.0 [facility] HospitalHemoglobin A1c Vkrutoy9233-96-54 07:07:00 * Test Item Value Reference Range Interpretation Comments Hemoglobin A1c Percent (test code = Hemoglobin A1c Percent) 6.3 4.0-7.0 [facility] HospitalWhite Blood Bywju9174-17-80 06:39:00* Test Item Value Reference Range Interpretation Comments White Blood Count (test code = 6690-2) 5.48 4.8-10.8 [facility] HospitalRed Blood Yivzc0225-74-42 06:39:00* Test Item Value Reference Range Interpretation Comments Red Blood Count (test code = 789-8) 4.13 3.6-5.1 [facility] HospitalHemoglobin2019-11-05 06:39:00* Test Item Value Reference Range Interpretation Comments Hemoglobin (test code = 44233-4) 10.8 12.0-16.0 L [facility] HospitalHematocrit2019-11-05 06:39:00* Test Item Value Reference Range Interpretation Comments Hematocrit (test code = 4544-3) 35.4 34.2-44.1 [facility] HospitalMean Corpuscular Pipcyd4763-87-57 06:39:00* Test Item Value Reference Range Interpretation Comments Mean Corpuscular Volume (test code = 787-2) 85.7 81-99 [facility] HospitalMean Corpuscular Wxustccsnw0823-07-64 06:39:00* Test Item Value Reference Range Interpretation Comments Mean Corpuscular Hemoglobin (test code = 785-6) 26.2 28-32 L [facility] HospitalMean Corpuscular Hemoglobin Concent 2019-04-13 06:39:00* Test Item Value Reference Range Interpretation Comments Mean Corpuscular Hemoglobin Concent (test code = 786-4) 30.5 31-35 L [facility] HospitalRed Cell Distribution Gozbn8445-44-52 06:39:00* Test Item Value Reference Range Interpretation Comments Red Cell Distribution Width (test code = 95715-5) 18.9 11.7 -14.4 H [facility] HospitalPlatelet Axmln4503-42-69 06:39:00* Test Item Value Reference Range Interpretation Comments Platelet Count (test code = 777-3) 202 140-360 [facility] HospitalNeutrophils (%) (Auto)2019-04-13 06:39:00 * Test Item Value Reference Range Interpretation Comments Neutrophils (%) (Auto) (test code = 32911-7) 54.5 38.7-80.0 [facility] HospitalLymphocytes (%) (Auto)2019-04-13 06:39:00 * Test Item Value Reference Range Interpretation Comments Lymphocytes (%) (Auto) (test code = 736-9) 27.7 18.0-39.1 [facility] HospitalMonocytes (%) (Auto)2019-04-13 06:39:00* Test Item Value Reference Range Interpretation Comments Monocytes (%) (Auto) (test code = 5905-5) 12.4 4.4-11.3 H [facility] HospitalEosinophils (%) (Auto)2019-04-13 06:39:00 * Test Item Value Reference Range Interpretation Comments Eosinophils (%) (Auto) (test code = 713-8) 4.7 0.0-6.0 [facility] HospitalBasophils (%) (Auto)2019-04-13 06:39:00* Test Item Value Reference Range Interpretation Comments Basophils (%) (Auto) (test code = 706-2) 0.5 0.0-1.0 [facility] HospitalIM GRANULOCYTES %2019-04-13 06:39:00* Test Item Value Reference Range Interpretation Comments IM GRANULOCYTES % (test code = IM GRANULOCYTES %) 0.2 0.0- 1.0 [facility] HospitalNeutrophils # (Auto)2019-04-13 06:39:00* Test Item Value Reference Range Interpretation Comments Neutrophils # (Auto) (test code = 751-8) 3.0 2.1-6.9 [facility] HospitalLymphocytes # (Auto)2019-04-13 06:39:00* Test Item Value Reference Range Interpretation Comments Lymphocytes # (Auto) (test code = 81747-7) 1.5 1.0-3.2 [facility] HospitalMonocytes # (Auto)2019-04-13 06:39:00* Test Item Value Reference Range Interpretation Comments Monocytes # (Auto) (test code = 742-7) 0.7 0.2-0.8 [facility] HospitalEosinophils # (Auto)2019-04-13 06:39:00* Test Item Value Reference Range Interpretation Comments Eosinophils # (Auto) (test code = 711-2) 0.3 0.0-0.4 [facility] HospitalBasophils # (Auto)2019-04-13 06:39:00* Test Item Value Reference Range Interpretation Comments Basophils # (Auto) (test code = 704-7) 0.0 0.0-0.1 [facility] HospitalAbsolute Immature Granulocyte (auto 2019-04-13 06:39:00* Test Item Value Reference Range Interpretation Comments Absolute Immature Granulocyte (auto (shaq t code = Absolute Immature Granulocyte (auto) 0.01 0-0.1 [facility] HospitalCT BRAIN AQ0647-95-97 05:58:00 [place] [address] Patient Name: ÁNGELA WASHINGTON MR #: [id number] : 1935 Age/Sex: 83/F Req #: [id number] Adm Physician: COLIN ROSAS MD Ordered by: JEWELS MCDONALD M.D. Report #: [id number] Location: [facility] Room/Bed: [facility] Procedure: [id number] CT/CT BRAIN WO Exam Date: 04/13/19 Exam Time: 0540 REPORT STATUS: Signed History:St roke like symptoms. Comparison studies:CT head 04/12/2019 and 12/11/2018 Belkis hnique: Axial images were obtained from the skull base to the vertex. Kong l and sagittal images reconstructed from the axial data. Intravenous contrast: None Dose modulation, iterative reconstruction, and/or weight based adjustment of the mA/kV was utilized to reduce the radiation dose to as low as reasonably achievable. Findings: Scalp/skull: No abnormalities. Extra- axial spaces: No masses. No fluid collections. Brain sulci: Mildly pr ominent. Ventricles: Mild compensatory dilatation. No hydrocephalus. Pare nchyma: Left inferior precentral, parietal and posterior temporal cortical bas ed hypodensity with associated volume loss , stable from previous exam. Medial posterior cerebellar hemispheres cortical-based hypodensity with volume loss, stable. Few hypodensities in the supratentorial white matter are small vessel ischemic changes. No masses, hemorrhage, acute or chronic cortical vascular insults. Sellar/suprasellar region: No abnormalities. Craniocervical blanquita ction: Patent foramen magnum. No Chiari one malformation. Incidental findi ngs: Atherosclerotic calcifications in the carotid siphons . Impression: No acute abnormalities. Chronic findings: 1. Mild generalized volume loss. 2. Mild supratentorial white matter small vessel ischemic changes. 3. 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 Signed by: DR Derrick Madrid M.D. on 04/13/2019 6:21 AM Dictated By: DERRICK BLOCK MD 0 Transcribed By: MALIA on 04/13/19620 COPY TO: JEWELS MCDONALD MD CHEST SINGLE (PORTABLE)2019-04-12 08:57:00 [place] [address] Patient Name: ÁNGELA WASHINGTON MR #: [id number] : 1935 Age/Sex: 83/F Req #: [id number] Adm Physician: COLIN ROSAS MD Ordered by: KENDALL DAWSON DO Report #: [id number] Location: [facility] Room/Bed: [place] [address] Procedure: [id number] DX/ CHEST SINGLE (PORTABLE) Exam Date: 04/12/19 Exam Steve e: 0800 REPORT STATUS: Signed EX AMINATION: CHEST SINGLE (PORTABLE) INDICATION: Abdominal pain COM PARISON: Chest radiograph of 12/11/2018 FINDINGS: LINES/TUBES:Left chest pacer unchanged. EKG leads overlie the chest. LUNGS:The lungs are mod erately inflated. There is perihilar fullness and indistinctness of the pulmon lelo vasculature. Mild bibasilar subsegmental atelectasis. Subcentimeter right apical calcified granuloma. PLEURA:No pleural effusion or pneumothorax. MEDIASTINUM:Cardiomediastinal silhouette is stably enlarged. Postoperative findings of prior CABG. BONES/SOFT TISSUES:No acute osseous injury. AB DOMEN:No free air under the diaphragm. IMPRESSION: Cardiomegaly and m ild interstitial edema. Signed by: Marleni Ventura MD on 04/12/2019 8:59 AM Dictated By: MARLENI VENTURA MD 8 COPY TO: LIZET DAWSON DO CT BRAIN [id number] 08:40:00 [place] [address] Patient Name: ÁNGELA WASHINGTON MR #: [id number] : 1935 Age/Sex: 83/F Req #: [id number] Adm Physician: COLIN ROSAS MD Ordered by: KENDALL DAWSON DO Report #: [id number] Location: [facility] Room/Bed: [place] [address] Procedure: [id number] CT/ CT BRAIN WO Exam Date: 04/12/19 Exam Time: 0750 REPORT STATUS: Signed CT BRAIN WO HISTORY: Altered mental status COMPARISON: Head CT 12/11/2018 Techni que: Noncontrast axial scans were obtained from skull base to the vertex. Co wilver and sagittal reconstructions obtained from the axial data. One or more of the following dose reduction techniques were used: Automated exposure contr ol, adjustment of the mA and/or kV according to patient size, and/or utilizati on of iterative reconstruction technique. DISCUSSION: Scalp/Skull: U nremarkable. Brain sulci: Mildly prominent. Ventricles: Compensatory dilatat ion. Extra-axial spaces: No masses or fluid collections. Carotid siphon calc ifications are present. 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 Old focal paravermian cere bellar cortical infarct is also unchanged. Mild bilateral deep white matter hy podensity is likely chronic microvascular ischemic change. Otherwise, no ma sses, hemorrhage, or large vascular territory acute infarct. Dural sinuses: No abnormal densities. Sellar/Suprasellar region: Intact. Skull base: Inta ct. Incidental findings: None. IMPRESSION: 1. No acute intracranial ab normalities. 2. Mild supratentorial chronic microvascular ischemic change. 3. 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 4. Old focal par avermian cerebellar cortical infarct. Signed by: Zach Rodriguez on 04/12/2019 8:45 AM Dictated By: JOSE FREEMAN MD Electronically S igned By: JOSE FREEMAN MD on 04/12/1946 Transcribed By: MALIA on 04/12 0845 COPY TO: KENDALL DAWSON DO Urine [id number] 08:15:00* Test Item Value Reference Range Interpretation Comments Urine WBC (test code = 5821-4) 11-20 0-5 [facility] [id number] 08:15:00* Test Item Value Reference Range Interpretation Comments Urine RBC (test code = 17836-0) 0-5 0-5 [facility] Zsvdeqnr7695-74-62 08:15:00* Test Item Value Reference Range Interpretation Comments Urine Bacteria (test code = 19597-5) MODERATE NONE H [facility] Epithelial Hobfp8930-71-33 08:15:00 * Test Item Value Reference Range Interpretation Comments Urine Epithelial Cells (test code = 56161-3) FEW NONE [facility] Amorphous Bvcoxjmb3477-06-66 08:15:00* Test Item Value Reference Range Interpretation Comments Urine Amorphous Sediment (test code = 8246-1) FEW FEW [facility] Amorphous Ggzxfsil1246-67-63 08:15:00* Test Item Value Reference Range Interpretation Comments Urine Amorphous Sediment (test code = 8246-1) FEW FEW [facility] Amorphous Gncxzxei7081-28-45 08:15:00* Test Item Value Reference Range Interpretation Comments Urine Amorphous Sediment (test code = 8246-1) FEW FEW [facility] Mybzl2571-59-00 08:06:00* Test Item Value Reference Range Interpretation Comments Urine Color (test code = 5778-6) YELLOW YELLOW [facility] Pdtsftp3272-30-92 08:06:00* Test Item Value Reference Range Interpretation Comments Urine Clarity (test code = 40409-7) CLEAR CLEAR [facility] Specific Qnxshho8216-18-20 08:06:00 * Test Item Value Reference Range Interpretation Comments Urine Specific Cornelius (test code = 5811-5) 1.010 1.010-1.02 5 [facility] uI5321-25-23 08:06:00* Test Item Value Reference Range Interpretation Comments Urine pH (test code = 08980-6) 6 5-7 [facility] Leukocyte Dxmobocg3879-15-55 08:06:00* Test Item Value Reference Range Interpretation Comments Urine Leukocyte Esterase (test code = 37893-9) NEGATIVE NEGATIV E [facility] Wkcldqt6561-86-71 08:06:00* Test Item Value Reference Range Interpretation Comments Urine Nitrite (test code = 68125-9) NEGATIVE NEGATIVE [facility] Nxzpetx6443-40-51 08:06:00* Test Item Value Reference Range Interpretation Comments Urine Protein (test code = 51644-3) NEGATIVE NEGATIVE [facility] Glucose (UA)2019-04-12 08:06:00* Test Item Value Reference Range Interpretation Comments Urine Glucose (UA) (test code = 30081-0) NEGATIVE NEGATIVE [facility] Nlnazra3602-67-97 08:06:00* Test Item Value Reference Range Interpretation Comments Urine Ketones (test code = 61239-5) NEGATIVE NEGATIVE [facility] Twmmjsqeejhs2997-19-41 08:06:00* Test Item Value Reference Range Interpretation Comments Urine Urobilinogen (test code = 04546-8) 0.2 0.2-1 [facility] Yflxlelqf1550-25-50 08:06:00* Test Item Value Reference Range Interpretation Comments Urine Bilirubin (test code = 1977-8) NEGATIVE NEGATIVE [facility] Qnubn5444-47-68 08:06:00* Test Item Value Reference Range Interpretation Comments Urine Blood (test code = 54561-4) NEGATIVE NEGATIVE [facility] HospitalCreatine Kinase ZQ5966-46-46 08:05:00* Test Item Value Reference Range Interpretation Comments Creatine Kinase MB (test code = 78200-0) 1.90 0-5.0 [facility] HospitalTroponin A0744-60-05 08:05:00* Test Item Value Reference Range Interpretation Comments Troponin I (test code = XLU4741) < 0.001 0-0.300 [facility] HospitalCreatine Kinase QY8372-46-39 08:05:00* Test Item Value Reference Range Interpretation Comments Creatine Kinase MB (test code = 59820-8) 1.90 0-5.0 [facility] HospitalTroponin H1558-84-62 08:05:00* Test Item Value Reference Range Interpretation Comments Troponin I (test code = BOV4151) < 0.001 0-0.300 [facility] HospitalTotal Gducuffzq6411-34-07 07:43:00* Test Item Value Reference Range Interpretation Comments Total Bilirubin (test code = 1975-2) 0.4 0.2-1.2 [facility] HospitalAspartate Amino Transf (AST/SGOT) 2019-04-12 07:43:00* Test Item Value Reference Range Interpretation Comments Aspartate Amino Transf (AST/SGOT) (test code = Aspartate Amino Transf (AST/SGOT)) 19 5-34 [facility] HospitalAlanine Aminotransferase (ALT/SGPT) 2019-04-12 07:43:00* Test Item Value Reference Range Interpretation Comments Alanine Aminotransferase (ALT/SGPT) (test code = 1742-6) 17 0-55 [facility] HospitalTotal Eiqartp8915-62-90 07:43:00* Test Item Value Reference Range Interpretation Comments Total Protein (test code = 2885-2) 6.7 6.5-8.1 [facility] HospitalAlbumin2019-11-04 07:43:00* Test Item Value Reference Range Interpretation Comments Albumin (test code = 1751-7) 3.4 3.5-5.0 L [facility] HospitalGlobulin2019-11-04 07:43:00* Test Item Value Reference Range Interpretation Comments Globulin (test code = 27591-2) 3.3 2.3-3.5 [facility] HospitalAlbumin/Globulin Wxahl2041-11-15 07:43:00 * Test Item Value Reference Range Interpretation Comments Albumin/Globulin Ratio (test code = 1759-0) 1.0 0.8-2.0 [facility] HospitalAlkaline Oxgqztsruyf3651-99-49 07:43:00* Test Item Value Reference Range Interpretation Comments Alkaline Phosphatase (test code = 6768-6) 93 40-150 [facility] HospitalCreatine Vugdrv1691-63-35 07:43:00* Test Item Value Reference Range Interpretation Comments Creatine Kinase (test code = 2157-6) 140 29-168 [facility] HospitalCreatine Nndtnl3747-47-92 07:43:00* Test Item Value Reference Range Interpretation Comments Creatine Kinase (test code = 2157-6) 140 29-168 [facility] HospitalB-Type Natriuretic Qkvsyss5799-46-31 04:43:00* Test Item Value Reference Range Interpretation Comments B-Type Natriuretic Peptide (test code = 77287-3) 178.7 0-100 H [facility] HospitalB-Type Natriuretic Eoncbtn9617-38-73 04:43:00* Test Item Value Reference Range Interpretation Comments B-Type Natriuretic Peptide (test code = 28356-9) 178.7 0-100 H [facility] HospitalB-Type Natriuretic Ucqhard3540-14-56 04:43:00* Test Item Value Reference Range Interpretation Comments B-Type Natriuretic Peptide (test code = 87128-6) 178.7 0-100 [facility] Qeisb0836-41-52 03:51:00* Test Item Value Reference Range Interpretation Comments Sodium Level (test code = 2951-2) 132 136-145 L [facility] HospitalPotassium Ebkdq9474-98-41 03:51:00* Test Item Value Reference Range Interpretation Comments Potassium Level (test code = 2823-3) 4.1 3.5-5.1 [facility] HospitalChloride Isiuq3727-69-32 03:51:00* Test Item Value Reference Range Interpretation Comments Chloride Level (test code = 2075-0) 98 98-107 [facility] HospitalCarbon Dioxide Wrdsq0331-02-22 03:51:00* Test Item Value Reference Range Interpretation Comments Carbon Dioxide Level (test code = 2028-9) 24 22-29 [facility] HospitalAnion Hjl5516-79-90 03:51:00* Test Item Value Reference Range Interpretation Comments Anion Gap (test code = 78764-1) 14.1 8-16 [facility] HospitalBlood Urea Ztgvupfq9344-29-29 03:51:00* Test Item Value Reference Range Interpretation Comments Blood Urea Nitrogen (test code = 3094-0) 23 7-26 [facility] HospitalCreatinine2019-07-31 03:51:00* Test Item Value Reference Range Interpretation Comments Creatinine (test code = 2160-0) 0.92 0.57-1.11 [facility] HospitalBUN/Creatinine Fwaka5081-62-27 03:51:00* Test Item Value Reference Range Interpretation Comments BUN/Creatinine Ratio (test code = 3097-3) 25 6-25 [facility] HospitalEstimat Glomerular Filtration Rate 2019-01-06 03:51:00* Test Item Value Reference Range Interpretation Comments Estimat Glomerular Filtration Rate (test code = 066685763) 58 >60 L Ranges were taken from the National Kidney Disease Education Program and the [facility] Kidney Foundation literature.Reference ranges:60 or greater: Kkwdtb56-54 ( for 3 consecutive months): Chronic kidney disease 15 or less: Kidney failureMemorial Hermann Northeast HospitalGlucose Qtwaq6300-12-81 03:51:00* Test Item Value Reference Range Interpretation Comments Glucose Level (test code = WSM2948) 121 74-118 H [facility] HospitalCalcium Bjwtt8195-68-24 03:51:00* Test Item Value Reference Range Interpretation Comments Calcium Level (test code = 50029-1) 8.5 8.4-10.2 [facility] HospitalMagnesium Vfwye8208-12-49 03:51:00* Test Item Value Reference Range Interpretation Comments Magnesium Level (test code = 05182-3) 2.0 1.3-2.1 [facility] HospitalMagnesium Xgnft0982-46-36 03:51:00* Test Item Value Reference Range Interpretation Comments Magnesium Level (test code = 11649-7) 2.0 1.3-2.1 [facility] HospitalWhite Blood Imxtu9460-73-46 03:34:00* Test Item Value Reference Range Interpretation Comments White Blood Count (test code = 6690-2) 7.34 4.8-10.8 [facility] HospitalRed Blood Njbbh9367-01-69 03:34:00* Test Item Value Reference Range Interpretation Comments Red Blood Count (test code = 789-8) 2.99 3.6-5.1 L [facility] HospitalHemoglobin2019-07-31 03:34:00* Test Item Value Reference Range Interpretation Comments Hemoglobin (test code = 38897-8) 8.9 12.0-16.0 L [facility] HospitalHematocrit2019-07-31 03:34:00* Test Item Value Reference Range Interpretation Comments Hematocrit (test code = 4544-3) 26.4 34.2-44.1 L [facility] HospitalMean Corpuscular Xktctr7826-18-48 03:34:00* Test Item Value Reference Range Interpretation Comments Mean Corpuscular Volume (test code = 787-2) 88.3 81-99 [facility] HospitalMean Corpuscular Okqoytrcfk4677-05-53 03:34:00* Test Item Value Reference Range Interpretation Comments Mean Corpuscular Hemoglobin (test code = 785-6) 29.8 28-32 [facility] HospitalMean Corpuscular Hemoglobin Concent 2019-01-06 03:34:00* Test Item Value Reference Range Interpretation Comments Mean Corpuscular Hemoglobin Concent (test code = 786-4) 33.7 31-35 [facility] HospitalRed Cell Distribution Cjzac7865-64-21 03:34:00* Test Item Value Reference Range Interpretation Comments Red Cell Distribution Width (test code = 70467-6) 13.2 11.7 -14.4 [facility] HospitalPlatelet Roaxk2171-43-03 03:34:00* Test Item Value Reference Range Interpretation Comments Platelet Count (test code = 777-3) 229 140-360 [facility] HospitalNeutrophils (%) (Auto)2019-01-06 03:34:00 * Test Item Value Reference Range Interpretation Comments Neutrophils (%) (Auto) (test code = 08895-0) 47.4 38.7-80.0 [facility] HospitalLymphocytes (%) (Auto)2019-01-06 03:34:00 * Test Item Value Reference Range Interpretation Comments Lymphocytes (%) (Auto) (test code = 736-9) 33.4 18.0-39.1 [facility] HospitalMonocytes (%) (Auto)2019-01-06 03:34:00* Test Item Value Reference Range Interpretation Comments Monocytes (%) (Auto) (test code = 5905-5) 12.1 4.4-11.3 H [facility] HospitalEosinophils (%) (Auto)2019-01-06 03:34:00 * Test Item Value Reference Range Interpretation Comments Eosinophils (%) (Auto) (test code = 713-8) 5.9 0.0-6.0 [facility] HospitalBasophils (%) (Auto)2019-01-06 03:34:00* Test Item Value Reference Range Interpretation Comments Basophils (%) (Auto) (test code = 706-2) 0.5 0.0-1.0 [facility] HospitalIM GRANULOCYTES %2019-01-06 03:34:00* Test Item Value Reference Range Interpretation Comments IM GRANULOCYTES % (test code = IM GRANULOCYTES %) 0.7 0.0- 1.0 [facility] HospitalNeutrophils # (Auto)2019-01-06 03:34:00* Test Item Value Reference Range Interpretation Comments Neutrophils # (Auto) (test code = 751-8) 3.5 2.1-6.9 [facility] HospitalLymphocytes # (Auto)2019-01-06 03:34:00* Test Item Value Reference Range Interpretation Comments Lymphocytes # (Auto) (test code = 05840-3) 2.5 1.0-3.2 [facility] HospitalMonocytes # (Auto)2019-01-06 03:34:00* Test Item Value Reference Range Interpretation Comments Monocytes # (Auto) (test code = 742-7) 0.9 0.2-0.8 H [facility] HospitalEosinophils # (Auto)2019-01-06 03:34:00* Test Item Value Reference Range Interpretation Comments Eosinophils # (Auto) (test code = 711-2) 0.4 0.0-0.4 [facility] HospitalBasophils # (Auto)2019-01-06 03:34:00* Test Item Value Reference Range Interpretation Comments Basophils # (Auto) (test code = 704-7) 0.0 0.0-0.1 [facility] HospitalAbsolute Immature Granulocyte (auto 2019-01-06 03:34:00* Test Item Value Reference Range Interpretation Comments Absolute Immature Granulocyte (auto (shaq t code = Absolute Immature Granulocyte (auto) 0.05 0-0.1 [facility]Bedside Pqrahdz2677-79-52 19:57:00* Test Item Value Reference Range Interpretation Comments Bedside Glucose (test code = 53260-2) 154 70-120 H Meter ID: [id number] [facility] CenterCTA ABD/PELVIS 2019-01-04 17:32:00 [facility] [address] [place] [address] Patient Name: ÁNGELA WASHINGTON MR #: [id number] : 1935 Age/Sex: 83/F Req #: [id number] Adm Physician: COLIN ROSAS MD Ordered by: OSWALD GARCIA MD Report #: [id number] Location: [facility] Room/Bed: [place] [address] Procedure: [id number] CT/CTA ABD/PELVIS Exam Date: 01/04/19 Exam Time: 1715 REPORT STATUS: Signed EXAM: ABDOMINOP ELVIC CTA WITH AND WITHOUT IV CONTRAST. 3D post-processing of the images was performed, and the post-processed images were used in interpretation. IND ICATION: GI bleeding COMPARISON: None. TECHNIQUE: Abdomen and pelvis w ere scanned utilizing a multidetector helical scanner from the lung base to th e pubic symphysis before and after administration of IV contrast. Coronal and sagittal reformations were obtained. 3D postprocessing of the images was perfo rmed and the postprocessed images were used in interpretation. CTA protocol wa s performed. Scan was performed prior to contrast administration, during arter ial phase, and delayed phase. IV CONTRAST: 100mL of Isovue 370 ORAL CONTR AST: Water COMPLICATIONS: None RADIATION DOSE: Total DLP : 2081.1 mGy*cm Dose modulation, iterative reconstruction, and/or weight b ased adjustment of the mA/kV was utilized to reduce the radiation dose to as l ow as reasonably achievable. FINDINGS: LOWER THORAX: Bibasilar depende nt subsegmental atelectasis. No focal consolidation. Multichamber cardiomegaly . Athetotic calcifications of the coronary arteries. 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 Small sliding hiatal hernia. HEPATOBILIARY: No focal liver lesions. Scattered calcified granulomas thro ughout the liver parenchyma. No intrahepatic biliary ductal dilatation. Status post cholecystectomy. SPLEEN: Numerous punctate calcified granulomas throu ghout the nonenlarged spleen. PANCREAS: No focal masses or ductal dilatat ion. ADRENALS: No adrenal nodules. KIDNEYS/URETERS: No hydronephrosis, st ones, or solid mass lesions. PELVIC ORGANS/BLADDER: Coarse uterine calcificati ons. PERITONEUM / RETROPERITONEUM: No free air or fluid. LYMPH NODES: No lymphadenopathy. VESSELS: No evidence of active arterial extravasation. There are diffuse atherosclerotic calcifications of the abdominal aorta and major br anches. No abdominal aortic aneurysm or iliac artery aneurysm. The abdominal a alecia and major branches are patent. There is mild stenosis at the celiac origi n and moderate stenosis at the superior mesenteric artery origin. The inferior mesenteric artery is patent. Moderate ostial narrowing at the origins of both right and left single renal arteries. GI TRACT: Severe sigmoid colonic d iverticulosis with no CT evidence of diverticulitis. No abnormal bowel wall th ickening. No bowel obstruction. BONES AND SOFT TISSUES: No acute osseous in jury. Diffuse osteopenia. Multilevel degenerative changes of the visualized sp ine. Grade 1 anterolisthesis at L4-5. IMPRESSION: No evidence of acute g astrointestinal active extravasation. Severe sigmoid diverticulosis without CT evidence of diverticulitis. Diffuse atherosclerotic arterial calcificat ions including of the coronary arteries. Moderate SMA ostial narrowing and mil d celiac ostial narrowing. Moderate ostial narrowing at right and left single renal arteries. Signed by: Marleni Ventura MD on 01/04/2019 5:50 PM Di ctated By: MARLENI VENTURA MD 17 50 Transcribed By: MALIA on 01/04/19 1334 COPY TO: OSWALD GARCIA MD Total Ajvsdonwb6425-97-03 15:53:00* Test Item Value Reference Range Interpretation Comments Total Bilirubin (test code = 1975-2) 0.3 0.2-1.2 [facility] HospitalAspartate Amino Transf (AST/SGOT) 2019-01-04 15:53:00* Test Item Value Reference Range Interpretation Comments Aspartate Amino Transf (AST/SGOT) (test code = Aspartate Amino Transf (AST/SGOT)) 14 5-34 [facility] HospitalAlanine Aminotransferase (ALT/SGPT) 2019-01-04 15:53:00* Test Item Value Reference Range Interpretation Comments Alanine Aminotransferase (ALT/SGPT) (test code = 1742-6) 16 0-55 [facility] HospitalTotal Rohcurb1653-62-53 15:53:00* Test Item Value Reference Range Interpretation Comments Total Protein (test code = 2885-2) 6.9 6.5-8.1 [facility] HospitalAlbumin2019-07-29 15:53:00* Test Item Value Reference Range Interpretation Comments Albumin (test code = 1751-7) 3.4 3.5-5.0 L [facility] HospitalGlobulin2019-07-29 15:53:00* Test Item Value Reference Range Interpretation Comments Globulin (test code = 98191-4) 3.5 2.3-3.5 [facility] HospitalAlbumin/Globulin Rnbyb3199-86-78 15:53:00 * Test Item Value Reference Range Interpretation Comments Albumin/Globulin Ratio (test code = 1759-0) 1.0 0.8-2.0 [facility] HospitalAlkaline Cpntrkwzqjj0337-85-46 15:53:00* Test Item Value Reference Range Interpretation Comments Alkaline Phosphatase (test code = 6768-6) 73 40-150 [facility] HospitalUrine SRA9948-50-66 15:51:00* Test Item Value Reference Range Interpretation Comments Urine WBC (test code = 5821-4) NONE 0-5 [facility] HospitalUrine WLB8166-88-21 15:51:00* Test Item Value Reference Range Interpretation Comments Urine RBC (test code = 86735-4) NONE 0-5 [facility] HospitalUrine Iedeygtj4432-17-07 15:51:00* Test Item Value Reference Range Interpretation Comments Urine Bacteria (test code = 20072-8) NONE NONE [facility] HospitalUrine Epithelial Xjqet8614-76-35 15:51:00 * Test Item Value Reference Range Interpretation Comments Urine Epithelial Cells (test code = 14861-2) MODERATE NONE [facility] HospitalUrine Zdrma8475-61-48 15:38:00* Test Item Value Reference Range Interpretation Comments Urine Color (test code = 5778-6) YELLOW YELLOW [facility] HospitalUrine Wjxzplr6640-12-29 15:38:00* Test Item Value Reference Range Interpretation Comments Urine Clarity (test code = 36697-4) CLEAR CLEAR [facility] HospitalUrine Specific Yoqeopj8239-16-43 15:38:00 * Test Item Value Reference Range Interpretation Comments Urine Specific Cornelius (test code = 5811-5) 1.010 1.010-1.02 5 [facility] HospitalUrine zV9322-42-16 15:38:00* Test Item Value Reference Range Interpretation Comments Urine pH (test code = 23400-4) 6 5-7 [facility] HospitalU[facility] Leukocyte Ultgtrek2672-16-97 15:38:00* Test Item Value Reference Range Interpretation Comments Urine Leukocyte Esterase (test code = 52165-4) NEGATIVE NEGATIV E [facility] HospitalUrine Bbhtgja7380-83-32 15:38:00* Test Item Value Reference Range Interpretation Comments Urine Nitrite (test code = 90962-2) NEGATIVE NEGATIVE [facility] HospitalU[facility] Ichvhzy8524-80-51 15:38:00* Test Item Value Reference Range Interpretation Comments Urine Protein (test code = 94182-4) NEGATIVE NEGATIVE [facility] HospitalUrine Glucose (UA)2019-01-04 15:38:00* Test Item Value Reference Range Interpretation Comments Urine Glucose (UA) (test code = 98777-1) NEGATIVE NEGATIVE [facility] HospitalU[facility] Mkqxkuk1628-09-81 15:38:00* Test Item Value Reference Range Interpretation Comments Urine Ketones (test code = 23468-3) NEGATIVE NEGATIVE [facility] HospitalU[facility] Lnmctnhdhwko9732-14-98 15:38:00* Test Item Value Reference Range Interpretation Comments Urine Urobilinogen (test code = 42427-0) 0.2 0.2-1 [facility] HospitalU[facility] Svqdvecys1137-87-79 15:38:00* Test Item Value Reference Range Interpretation Comments Urine Bilirubin (test code = 1977-8) NEGATIVE NEGATIVE [facility] HospitalU[facility] Hqlug5218-24-77 15:38:00* Test Item Value Reference Range Interpretation Comments Urine Blood (test code = 59499-8) NEGATIVE NEGATIVE [facility] HospitalBedside Jhbyeal8931-48-90 07:39:00* Test Item Value Reference Range Interpretation Comments Bedside Glucose (test code = 19341-4) 184 70-120 H Meter ID: [id number] [facility] 2018-12-13 05:46:00* Test Item Value Reference Range Interpretation Comments Sodium Level (test code = 2951-2) 135 136-145 L [facility] HospitalPotassium Iclli7223-97-14 05:46:00* Test Item Value Reference Range Interpretation Comments Potassium Level (test code = 2823-3) 4.0 3.5-5.1 [facility] HospitalChloride Vrlyb6682-88-21 05:46:00* Test Item Value Reference Range Interpretation Comments Chloride Level (test code = 2075-0) 103 98-107 [facility] HospitalCarbon Dioxide Aureg8917-66-51 05:46:00* Test Item Value Reference Range Interpretation Comments Carbon Dioxide Level (test code = 2028-9) 24 22-29 [facility] HospitalAnion Ril8989-76-70 05:46:00* Test Item Value Reference Range Interpretation Comments Anion Gap (test code = 85480-2) 12.0 8-16 [facility] HospitalBlood Urea Zjmnaikd8321-47-74 05:46:00* Test Item Value Reference Range Interpretation Comments Blood Urea Nitrogen (test code = 3094-0) 19 7-26 [facility] HospitalCreatinine2019-07-07 05:46:00* Test Item Value Reference Range Interpretation Comments Creatinine (test code = 2160-0) 0.85 0.57-1.11 [facility] HospitalBUN/Creatinine Kpqvo1743-82-01 05:46:00* Test Item Value Reference Range Interpretation Comments BUN/Creatinine Ratio (test code = 3097-3) 22 6-25 [facility] HospitalEstimat Glomerular Filtration Rate 2018-12-13 05:46:00* Test Item Value Reference Range Interpretation Comments Estimat Glomerular Filtration Rate (test code = 165691217) > 60 >60 Ranges were taken from the National Kidney Disease Education Program and the [facility] Kidney Foundation literature.Reference ranges:60 or greater: Fhhsfz55-04 ( for 3 consecutive months): Chronic kidney disease 15 or less: Kidney failureMemorial Hermann Northeast HospitalGlucose Vcfbb9519-25-57 05:46:00* Test Item Value Reference Range Interpretation Comments Glucose Level (test code = QJM0344) 215 74-118 H [facility] HospitalCalcium Sboto2026-55-63 05:46:00* Test Item Value Reference Range Interpretation Comments Calcium Level (test code = 55255-6) 8.4 8.4-10.2 [facility] HospitalWhite Blood Cpxka7542-97-58 05:12:00* Test Item Value Reference Range Interpretation Comments White Blood Count (test code = 6690-2) 9.57 4.8-10.8 [facility] HospitalRed Blood Hcagk7502-65-74 05:12:00* Test Item Value Reference Range Interpretation Comments Red Blood Count (test code = 789-8) 4.08 3.6-5.1 [facility] HospitalHemoglobin2019-07-07 05:12:00* Test Item Value Reference Range Interpretation Comments Hemoglobin (test code = 97920-5) 11.9 12.0-16.0 L [facility] HospitalHematocrit2019-07-07 05:12:00* Test Item Value Reference Range Interpretation Comments Hematocrit (test code = 4544-3) 36.6 34.2-44.1 [facility] HospitalMean Corpuscular Zpeexc3978-82-35 05:12:00* Test Item Value Reference Range Interpretation Comments Mean Corpuscular Volume (test code = 787-2) 89.7 81-99 [facility] HospitalMean Corpuscular Jdlusefdpl6710-62-90 05:12:00* Test Item Value Reference Range Interpretation Comments Mean Corpuscular Hemoglobin (test code = 785-6) 29.2 28-32 [facility] HospitalMean Corpuscular Hemoglobin Concent 2018-12-13 05:12:00* Test Item Value Reference Range Interpretation Comments Mean Corpuscular Hemoglobin Concent (test code = 786-4) 32.5 31-35 [facility] HospitalRed Cell Distribution Iocxk9586-55-21 05:12:00* Test Item Value Reference Range Interpretation Comments Red Cell Distribution Width (test code = 43037-4) 13.7 11.7 -14.4 [facility] HospitalPlatelet Xwxbx9412-87-65 05:12:00* Test Item Value Reference Range Interpretation Comments Platelet Count (test code = 777-3) 227 140-360 [facility] HospitalNeutrophils (%) (Auto)2018-12-13 05:12:00 * Test Item Value Reference Range Interpretation Comments Neutrophils (%) (Auto) (test code = 54167-1) 69.1 38.7-80.0 [facility] HospitalLymphocytes (%) (Auto)2018-12-13 05:12:00 * Test Item Value Reference Range Interpretation Comments Lymphocytes (%) (Auto) (test code = 736-9) 18.7 18.0-39.1 [facility] HospitalMonocytes (%) (Auto)2018-12-13 05:12:00* Test Item Value Reference Range Interpretation Comments Monocytes (%) (Auto) (test code = 5905-5) 10.0 4.4-11.3 [facility] HospitalEosinophils (%) (Auto)2018-12-13 05:12:00 * Test Item Value Reference Range Interpretation Comments Eosinophils (%) (Auto) (test code = 713-8) 1.0 0.0-6.0 [facility] HospitalBasophils (%) (Auto)2018-12-13 05:12:00* Test Item Value Reference Range Interpretation Comments Basophils (%) (Auto) (test code = 706-2) 0.3 0.0-1.0 [facility] HospitalIM GRANULOCYTES %2018-12-13 05:12:00* Test Item Value Reference Range Interpretation Comments IM GRANULOCYTES % (test code = IM GRANULOCYTES %) 0.9 0.0- 1.0 [facility] HospitalNeutrophils # (Auto)2018-12-13 05:12:00* Test Item Value Reference Range Interpretation Comments Neutrophils # (Auto) (test code = 751-8) 6.6 2.1-6.9 [facility] HospitalLymphocytes # (Auto)2018-12-13 05:12:00* Test Item Value Reference Range Interpretation Comments Lymphocytes # (Auto) (test code = 07603-3) 1.8 1.0-3.2 [facility] HospitalMonocytes # (Auto)2018-12-13 05:12:00* Test Item Value Reference Range Interpretation Comments Monocytes # (Auto) (test code = 742-7) 1.0 0.2-0.8 H [facility] HospitalEosinophils # (Auto)2018-12-13 05:12:00* Test Item Value Reference Range Interpretation Comments Eosinophils # (Auto) (test code = 711-2) 0.1 0.0-0.4 [facility] HospitalBasophils # (Auto)2018-12-13 05:12:00* Test Item Value Reference Range Interpretation Comments Basophils # (Auto) (test code = 704-7) 0.0 0.0-0.1 [facility] HospitalAbsolute Immature Granulocyte (auto 2018-12-13 05:12:00* Test Item Value Reference Range Interpretation Comments Absolute Immature Granulocyte (auto (shaq t code = Absolute Immature Granulocyte (auto) 0.09 0-0.1 [facility] HospitalFree Bwczcrwxi0377-86-61 17:47:00* Test Item Value Reference Range Interpretation Comments Free Thyroxine (test code = 3024-7) 1.06 0.8-1.8 [facility] Vkllloajg9086-12-56 17:47:00* Test Item Value Reference Range Interpretation Comments Free Thyroxine (test code = 3024-7) 1.06 0.8-1.8 [facility] Romcfazwj1430-46-11 17:47:00* Test Item Value Reference Range Interpretation Comments Free Thyroxine (test code = 3024-7) 1.06 0.8-1.8 [facility] Wgdhkoaxc0110-95-40 17:47:00* Test Item Value Reference Range Interpretation Comments Free Thyroxine (test code = 3024-7) 1.06 0.8-1.8 [facility] Ywlkxlnkg6756-44-07 17:47:00* Test Item Value Reference Range Interpretation Comments Free Thyroxine (test code = 3024-7) 1.06 0.8-1.8 [facility] HospitalThyroid Stimulating Hormone (TSH) 2018-12-12 07:50:00* Test Item Value Reference Range Interpretation Comments Thyroid Stimulating Hormone (TSH) (test code = 83478-3) 0.113 0.350-4.940 L [facility] HospitalThyroid Stimulating Hormone (TSH) 2018-12-12 07:50:00* Test Item Value Reference Range Interpretation Comments Thyroid Stimulating Hormone (TSH) (test code = 29970-8) 0.113 0.350-4.940 L [facility] HospitalB-Type Natriuretic Tvsnldo5030-60-87 07:30:00* Test Item Value Reference Range Interpretation Comments B-Type Natriuretic Peptide (test code = 21913-5) 65.9 0-100 [facility] HospitalHemoglobin A1c Zlqzcdo3461-86-87 07:11:00 * Test Item Value Reference Range Interpretation Comments Hemoglobin A1c Percent (test code = Hemoglobin A1c Percent) 7.9 4.0-7.0 H [facility] HospitalMagnesium Gnicg6474-55-17 07:11:00* Test Item Value Reference Range Interpretation Comments Magnesium Level (test code = 50088-1) 2.1 1.3-2.1 [facility] HospitalHemoglobin A1c Cvbtxtv8826-59-41 07:11:00 * Test Item Value Reference Range Interpretation Comments Hemoglobin A1c Percent (test code = Hemoglobin A1c Percent) 7.9 4.0-7.0 H [facility] HospitalCreatine Kinase WM2741-95-16 05:03:00* Test Item Value Reference Range Interpretation Comments Creatine Kinase MB (test code = 17604-7) 1.00 0-5.0 [facility] HospitalTroponin F6637-94-29 05:03:00* Test Item Value Reference Range Interpretation Comments Troponin I (test code = MXZ0492) 0.015 0-0.300 [facility] HospitalCreatine Kinase RY2006-73-43 05:03:00* Test Item Value Reference Range Interpretation Comments Creatine Kinase MB (test code = 00962-2) 1.00 0-5.0 [facility] HospitalTroponin T6476-39-93 05:03:00* Test Item Value Reference Range Interpretation Comments Troponin I (test code = UVC7108) 0.015 0-0.300 [facility] HospitalCreatine Iwhlsp9377-16-52 04:57:00* Test Item Value Reference Range Interpretation Comments Creatine Kinase (test code = 2157-6) 46 29-168 [facility] HospitalCreatine Trmowh8933-55-47 04:57:00* Test Item Value Reference Range Interpretation Comments Creatine Kinase (test code = 2157-6) 46 29-168 [facility] HospitalTriglycerides Cmtei5607-95-01 04:40:00* Test Item Value Reference Range Interpretation Comments Triglycerides Level (test code = 2571-8) 162 0-149 H [facility] HospitalCholesterol Kkrmg3464-73-60 04:40:00* Test Item Value Reference Range Interpretation Comments Cholesterol Level (test code = 2093-3) 128 0-199 Less than 200 mg/dL Low Rofs784 - 239 mg/dL Borderline Cjyq706 m g/dl and greater High Risk [facility] HospitalLDL Zddmwahymen9245-27-28 04:40:00* Test Item Value Reference Range Interpretation Comments LDL Cholesterol (test code = 2089-1) 66 60-130 [facility] Yceftfexhhh5354-20-09 04:40:00* Test Item Value Reference Range Interpretation Comments HDL Cholesterol (test code = 2085-9) 30 40-60 L [facility] HospitalCholesterol/HDL Sshar7745-29-32 04:40:00 * Test Item Value Reference Range Interpretation Comments Cholesterol/HDL Ratio (test code = 9830-1) 4.3 3.0-3.6 H [facility] HospitalTriglycerides Ashjr3939-45-48 04:40:00* Test Item Value Reference Range Interpretation Comments Triglycerides Level (test code = 2571-8) 162 0-149 H [facility] HospitalCholesterol Ezaxb4950-19-37 04:40:00* Test Item Value Reference Range Interpretation Comments Cholesterol Level (test code = 2093-3) 128 0-199 Less than 200 mg/dL Low Wkaz481 - 239 mg/dL Borderline Jqpx690 m g/dl and greater High Risk [facility] HospitalLDL Bfylxsjbmcv7439-81-06 04:40:00* Test Item Value Reference Range Interpretation Comments LDL Cholesterol (test code = 2089-1) 66 60-130 [facility] Tiybybhdafq9100-33-44 04:40:00* Test Item Value Reference Range Interpretation Comments HDL Cholesterol (test code = 2085-9) 30 40-60 L [facility] HospitalCholesterol/HDL Ykzmv6041-67-07 04:40:00 * Test Item Value Reference Range Interpretation Comments Cholesterol/HDL Ratio (test code = 9830-1) 4.3 3.0-3.6 H [facility] HospitalTotal Hxhxwoxlr0125-60-37 15:56:00* Test Item Value Reference Range Interpretation Comments Total Bilirubin (test code = 1974-2) 0.6 0.2-1.2 [facility] HospitalAspartate Amino Transf (AST/SGOT) 2018-12-11 15:56:00* Test Item Value Reference Range Interpretation Comments Aspartate Amino Transf (AST/SGOT) (test code = Aspartate Amino Transf (AST/SGOT)) 15 5-34 [facility] HospitalAlanine Aminotransferase (ALT/SGPT) 2018-12-11 15:56:00* Test Item Value Reference Range Interpretation Comments Alanine Aminotransferase (ALT/SGPT) (test code = 1742-6) 21 0-55 [facility] HospitalTotal Zmjefdg7685-47-85 15:56:00* Test Item Value Reference Range Interpretation Comments Total Protein (test code = 2885-2) 7.0 6.5-8.1 [facility] HospitalAlbumin2019-07-05 15:56:00* Test Item Value Reference Range Interpretation Comments Albumin (test code = 1751-7) 3.7 3.5-5.0 [facility] HospitalGlobulin2019-07-05 15:56:00* Test Item Value Reference Range Interpretation Comments Globulin (test code = 61349-3) 3.3 2.3-3.5 [facility] HospitalAlbumin/Globulin Fhhef2802-52-19 15:56:00 * Test Item Value Reference Range Interpretation Comments Albumin/Globulin Ratio (test code = 1759-0) 1.1 0.8-2.0 [facility] HospitalAlkaline Atqqffznvte7546-82-20 15:56:00* Test Item Value Reference Range Interpretation Comments Alkaline Phosphatase (test code = 6768-6) 77 40-150 [facility] HospitalUrine DWM2842-14-47 15:06:00* Test Item Value Reference Range Interpretation Comments Urine WBC (test code = 5821-4) NONE 0-5 [facility] HospitalUrine WII9827-10-91 15:06:00* Test Item Value Reference Range Interpretation Comments Urine RBC (test code = 29880-5) NONE 0-5 [facility] HospitalUrine Duhibpyb2765-71-39 15:06:00* Test Item Value Reference Range Interpretation Comments Urine Bacteria (test code = 94269-8) FEW NONE [facility] HospitalUrine Epithelial Moqul8257-80-51 15:06:00 * Test Item Value Reference Range Interpretation Comments Urine Epithelial Cells (test code = 71888-0) NONE NONE [facility] HospitalUrine Hyaline Vpzgn8412-39-18 15:06:00* Test Item Value Reference Range Interpretation Comments Urine Hyaline Casts (test code = 95290-1) 2-5 0-1 H [facility] Hyaline Xmfit9024-98-03 15:06:00* Test Item Value Reference Range Interpretation Comments Urine Hyaline Casts (test code = 62282-8) 2-5 0-1 H [facility] HospitalUrine Hyaline Qylqf5954-94-02 15:06:00* Test Item Value Reference Range Interpretation Comments Urine Hyaline Casts (test code = 87209-8) 2-5 0-1 H [facility] Hyaline Ldwhj3584-82-63 15:06:00* Test Item Value Reference Range Interpretation Comments Urine Hyaline Casts (test code = 43516-3) 2-5 0-1 H [facility] HospitalUrine Hyaline Xbfxx1800-81-19 15:06:00* Test Item Value Reference Range Interpretation Comments Urine Hyaline Casts (test code = 10269-2) 2-5 0-1 H [facility] HospitalUrine Buifs7584-63-49 14:54:00* Test Item Value Reference Range Interpretation Comments Urine Color (test code = 5778-6) YELLOW YELLOW [facility] HospitalUrine Vrtmuwy6394-30-02 14:54:00* Test Item Value Reference Range Interpretation Comments Urine Clarity (test code = 30096-5) CLEAR CLEAR [facility] HospitalUrine Specific Ujgczlg8173-92-46 14:54:00 * Test Item Value Reference Range Interpretation Comments Urine Specific Cornelius (test code = 5811-5) <=1.005 1.010-1.02 5 [facility] HospitalUrine pU6109-99-89 14:54:00* Test Item Value Reference Range Interpretation Comments Urine pH (test code = 43651-0) 6.5 5-7 [facility] HospitalUrine Leukocyte Cwxpcggi9480-04-31 14:54:00* Test Item Value Reference Range Interpretation Comments Urine Leukocyte Esterase (test code = 46856-5) NEGATIVE NEGATIV E [facility] HospitalUrine Szigddq6700-01-08 14:54:00* Test Item Value Reference Range Interpretation Comments Urine Nitrite (test code = 81390-4) NEGATIVE NEGATIVE [facility] HospitalUrine Pshfkfu8342-43-90 14:54:00* Test Item Value Reference Range Interpretation Comments Urine Protein (test code = 59927-4) NEGATIVE NEGATIVE [facility] HospitalUrine Glucose (UA)2018-12-11 14:54:00* Test Item Value Reference Range Interpretation Comments Urine Glucose (UA) (test code = 38483-9) NEGATIVE NEGATIVE [facility] HospitalUrine Hrszorf7885-97-78 14:54:00* Test Item Value Reference Range Interpretation Comments Urine Ketones (test code = 63291-4) NEGATIVE NEGATIVE [facility] HospitalUrine Gbrucyfzadhr6565-30-32 14:54:00* Test Item Value Reference Range Interpretation Comments Urine Urobilinogen (test code = 20930-5) 0.2 0.2-1 [facility] HospitalUrine Xyturnksj6700-52-02 14:54:00* Test Item Value Reference Range Interpretation Comments Urine Bilirubin (test code = 1977-8) NEGATIVE NEGATIVE [facility] HospitalUrine Iwegk0443-21-79 14:54:00* Test Item Value Reference Range Interpretation Comments Urine Blood (test code = 75449-6) NEGATIVE NEGATIVE [facility] HospitalProthrombin Pueq2348-58-13 14:32:00* Test Item Value Reference Range Interpretation Comments Prothrombin Time (test code = 5902-2) 23.1 11.9-14.5 H [facility] HospitalProthromb Time International Ratio 2018-12-11 14:32:00* Test Item Value Reference Range Interpretation Comments Prothromb Time International Ratio (test code = 6301-6) 1.97 Oral Anticoagulant Therapy INR Values:1. Low Intensity Therapy 1.5 - 2.02 . Moderate Intensity Therapy 2.0 - 3.03. High Intensity Therapy(1) 2.5 - 3. 54. High Intensity Therapy(2) 3.0 - 4.05. Panic Value INR > 5.0 [facility] HospitalActivated Partial Thromboplast Time 2018-12-11 14:32:00* Test Item Value Reference Range Interpretation Comments Activated Partial Thromboplast Time (test code = 25516-7) 34.5 23.8-35.5 [facility] HospitalProthrombin Uyqp2642-95-22 14:32:00* Test Item Value Reference Range Interpretation Comments Prothrombin Time (test code = 5902-2) 23.1 11.9-14.5 H [facility] HospitalProthromb Time International Ratio 2018-12-11 14:32:00* Test Item Value Reference Range Interpretation Comments Prothromb Time International Ratio (test code = 6301-6) 1.97 Oral Anticoagulant Therapy INR Values:1. Low Intensity Therapy 1.5 - 2.02 . Moderate Intensity Therapy 2.0 - 3.03. High Intensity Therapy(1) 2.5 - 3. 54. High Intensity Therapy(2) 3.0 - 4.05. Panic Value INR > 5.0 [facility] HospitalActivated Partial Thromboplast Time 2018-12-11 14:32:00* Test Item Value Reference Range Interpretation Comments Activated Partial Thromboplast Time (test code = 38265-8) 34.5 23.8-35.5 [facility] HospitalProthrombin Jlcp1376-92-51 14:32:00* Test Item Value Reference Range Interpretation Comments Prothrombin Time (test code = 5902-2) 23.1 11.9-14.5 H [facility] HospitalProthromb Time International Ratio 2018-12-11 14:32:00* Test Item Value Reference Range Interpretation Comments Prothromb Time International Ratio (test code = 6301-6) 1.97 Oral Anticoagulant Therapy INR Values:1. Low Intensity Therapy 1.5 - 2.02 . Moderate Intensity Therapy 2.0 - 3.03. High Intensity Therapy(1) 2.5 - 3. 54. High Intensity Therapy(2) 3.0 - 4.05. Panic Value INR > 5.0 [facility] HospitalActivated Partial Thromboplast Time 2018-12-11 14:32:00* Test Item Value Reference Range Interpretation Comments Activated Partial Thromboplast Time (test code = 61565-9) 34.5 23.8-35.5 [facility] HospitalProthrombin Yydq3388-36-33 14:32:00* Test Item Value Reference Range Interpretation Comments Prothrombin Time (test code = 5902-2) 23.1 11.9-14.5 H [facility] HospitalProthromb Time International Ratio 2018-12-11 14:32:00* Test Item Value Reference Range Interpretation Comments Prothromb Time International Ratio (test code = 6301-6) 1.97 Oral Anticoagulant Therapy INR Values:1. Low Intensity Therapy 1.5 - 2.02 . Moderate Intensity Therapy 2.0 - 3.03. High Intensity Therapy(1) 2.5 - 3. 54. High Intensity Therapy(2) 3.0 - 4.05. Panic Value INR > 5.0 [facility] HospitalActivated Partial Thromboplast Time 2018-12-11 14:32:00* Test Item Value Reference Range Interpretation Comments Activated Partial Thromboplast Time (test code = 46321-4) 34.5 23.8-35.5 [facility] HospitalCT BRAIN AF5723-53-06 14:17:00 [facility] [address] [place] [address] Patient Name: ÁNGELA WASHINGTON MR #: [id number] : 1935 Age/Sex: 83/F Req #: [id number] Adm Physician: Ordered by: MAMADOU NUNZE MD Report #: [id number] Location: ER Room/Bed: Procedure: [id number] CT/CT BRAIN WO Exam Date: Exam Time: REPORT STATUS: Signed Examination: CT head without contrast Clinical Indication: Slurred speech. Dizziness. New onset vertigo and aphasia. Technique: Transaxial noncontrast images from the skull base through the vertex were obtained. Sagittal and coronal reformatted images were done. Dose modulation, iterative reconstruction, and/or weight based adjustment of the mA/kV was utilized to reduce the radiation dose to as low as reasonably achievable. Comparison: None. Findings: Scalp: No abnormalities. Bones: Intact. No fractures. No blastic or lytic lesions. Brain sulci: Ap propriate for patient's age. Ventricles: Normal in size and configuration. N o hydrocephalus. . Extra-axial space: No abnormalities. Parenchyma: There are patchy areas of low-attenuation within subcortical and periventr icular white matter, nonspecific, but could represent microvascular ischemic d isease. A chronic infarct is demonstrated in the left middle cerebral artery t erritory. No masses, hemorrhage, or acute cortical based vascular insults. Suprasellar region: No abnormalities. Craniocervical junction: The foramen m agnum is patent. No Chiari one malformation. Incidental findings: Ath erosclerotic calcification of the cavernous and supraclinoid internal carotid arteries. Impression: 1. No acute intracranial finding. 2. Mild chronic microvascular ischemic change. 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 Signed by: Dr. Paula Brandon M.D. on 12/11/2018 2:19 PM Dictated By: PAULA NEGRON MD 1419 Transcribed By: MALIA on 12/11/18 141 9 COPY TO: MAMADOU NUNEZ MD CHEST SINGLE (NOT PORTABLE) 2018-12-11 14:09:00 [place] [address] Patient Name: ÁNGELA WASHINGTON MR #: [id number] : 1935 Age/Sex: 83/F Req #: [id number] Adm Physician: Ordered by: MAMADOU NUNEZ MD Report #: [id number] Location: ER Room/Bed: Procedure: DX/CH EST SINGLE (NOT PORTABLE) Exam Date: 12/11/18 Exam T vadim: 1350 REPORT STATUS: Signed EXAMINATION: CHEST SINGLE (NOT PORTABLE) INDICATION: Shortness of cookie th COMPARISON: Chest radiographs of 12/04/2018 and 10/11/2018 FINDIN GS: TUBES and LINES: Single lead pacer projects over the right ventricle. Po stoperative changes of CABG with median sternotomy wires and surgical clips. LUNGS: The lung volumes are low. No focal consolidation or pulmonary edema. PLEURA: No pleural effusion or pneumothorax. HEART AND MEDIASTINUM: The cardiomediastinal silhouette is stably enlarged. BONES AND SOFT TISSUES: No acute fracture or dislocation. UPPER ABDOMEN: No free air under the diap hragm. IMPRESSION: Low lung volumes. No focal pneumonia or pulmonary bertram ma. Stable cardiomegaly. Signed by: Marleni Ventura MD on 12/11/2018 2:12 PM Dictated By: MARLENI VENTURA MD 141 COPY TO: MINGO NUNEZ MD SHOULDER LEFT ANYGJGFN2770-30-40 21:13:00 [place] [address] Patient Name: ÁNGELA WASHINGTON MR #: [id number] : 1935 Age/Sex: 83/F Req #: [id number] Adm Physician: Ordered by: YECENIA DECKER NP Report #: [id number] Location: ER Room/Bed: Procedure: [id number] DX/NSES [place] LEFT COMPLETE Exam Date: 12/04/18 Exam Time: 20 40 REPORT STATUS: Signed Exam : Left shoulder 2 views History: Pain Comparison: None. Finding s: No fracture or malalignment. 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 No abnormal soft tissue calcification or soft t issue defect. Impression: No acute osseous abnormality Belia d by: Dr. Alfonso Joshi M.D. on 12/04/2018 9:14 PM Dictated By: ALFONSO JOSHI MD 13 Tra nscribed By: MALIA on 12/04/182113 COPY TO: YECENIA DECKER NP Urine [id number] 20:57:00* Test Item Value Reference Range Interpretation Comments Urine WBC (test code = 5821-4) NONE 0-5 [facility] IYQ7226-90-81 20:57:00* Test Item Value Reference Range Interpretation Comments Urine RBC (test code = 22764-1) NONE 0-5 [facility] Emqmbfya4554-64-04 20:57:00* Test Item Value Reference Range Interpretation Comments Urine Bacteria (test code = 67478-6) NONE NONE [facility] Epithelial Xhqou4527-48-90 20:57:00 * Test Item Value Reference Range Interpretation Comments Urine Epithelial Cells (test code = 34534-4) MODERATE NONE [facility] Hyaline Ftzxw5262-25-10 20:57:00* Test Item Value Reference Range Interpretation Comments Urine Hyaline Casts (test code = 20426-1) 0-1 0-1 [facility] Tdwwv0080-15-34 20:49:00* Test Item Value Reference Range Interpretation Comments Urine Color (test code = 5778-6) YELLOW YELLOW [facility] Yeolegx0394-60-97 20:49:00* Test Item Value Reference Range Interpretation Comments Urine Clarity (test code = 13714-0) CLEAR CLEAR [facility] Specific Axltvuh4196-44-64 20:49:00 * Test Item Value Reference Range Interpretation Comments Urine Specific Cornelius (test code = 5811-5) 1.010 1.010-1.02 5 [facility] lO4768-22-29 20:49:00* Test Item Value Reference Range Interpretation Comments Urine pH (test code = 69361-0) 6 5-7 [facility] Leukocyte Izkjscjw6860-93-53 20:49:00* Test Item Value Reference Range Interpretation Comments Urine Leukocyte Esterase (test code = 62302-2) TRACE NEGATIV E H [facility] Cokejdv8645-11-67 20:49:00* Test Item Value Reference Range Interpretation Comments Urine Nitrite (test code = 16884-0) NEGATIVE NEGATIVE [facility] Iirovoq1134-50-28 20:49:00* Test Item Value Reference Range Interpretation Comments Urine Protein (test code = 33899-6) NEGATIVE NEGATIVE [facility] Glucose (UA)2018-12-04 20:49:00* Test Item Value Reference Range Interpretation Comments Urine Glucose (UA) (test code = 25321-1) 3+ NEGATIVE [facility] Tmjbecq0636-39-61 20:49:00* Test Item Value Reference Range Interpretation Comments Urine Ketones (test code = 80332-9) NEGATIVE NEGATIVE [facility] Zmclkmltinwq4954-09-22 20:49:00* Test Item Value Reference Range Interpretation Comments Urine Urobilinogen (test code = 41863-1) 0.2 0.2-1 [facility] Kctejkgmb4617-61-84 20:49:00* Test Item Value Reference Range Interpretation Comments Urine Bilirubin (test code = 1977-8) NEGATIVE NEGATIVE [facility] Yqdqq4988-22-76 20:49:00* Test Item Value Reference Range Interpretation Comments Urine Blood (test code = 71171-3) NEGATIVE NEGATIVE [facility] HospitalCreat[facility] Kinase NX7357-79-33 20:44:00* Test Item Value Reference Range Interpretation Comments Creatine Kinase MB (test code = 77875-9) 2.40 0-5.0 [facility] HospitalTroponin X0424-55-49 20:44:00* Test Item Value Reference Range Interpretation Comments Troponin I (test code = SID4761) < 0.001 0-0.300 [facility] Acmjm6026-08-63 20:24:00* Test Item Value Reference Range Interpretation Comments Sodium Level (test code = 2951-2) 131 136-145 L [facility] HospitalPotassium Xuevi1378-71-61 20:24:00* Test Item Value Reference Range Interpretation Comments Potassium Level (test code = 2823-3) 4.3 3.5-5.1 [facility] HospitalChloride Evkuu6773-26-66 20:24:00* Test Item Value Reference Range Interpretation Comments Chloride Level (test code = 2075-0) 99 98-107 [facility] HospitalCarbon Dioxide Nwhpn1291-27-69 20:24:00* Test Item Value Reference Range Interpretation Comments Carbon Dioxide Level (test code = 2028-9) 23 22-29 [facility] HospitalAnion Plf4454-62-95 20:24:00* Test Item Value Reference Range Interpretation Comments Anion Gap (test code = 70317-9) 13.3 8-16 [facility] HospitalBlood Urea Zgflterg0261-58-78 20:24:00* Test Item Value Reference Range Interpretation Comments Blood Urea Nitrogen (test code = 3094-0) 18 7-26 [facility] HospitalCreatinine2019-06-28 20:24:00* Test Item Value Reference Range Interpretation Comments Creatinine (test code = 2160-0) 1.15 0.57-1.11 H [facility] HospitalBUN/Creatinine Nmroj0012-84-86 20:24:00* Test Item Value Reference Range Interpretation Comments BUN/Creatinine Ratio (test code = 3097-3) 16 6-25 [facility] HospitalEstimat Glomerular Filtration Rate 2018-12-04 20:24:00* Test Item Value Reference Range Interpretation Comments Estimat Glomerular Filtration Rate (test code = 670619281) 45 >60 L Ranges were taken from the National Kidney Disease Education Program and the [facility] literature.Reference ranges:60 or greater: Cruvti78-29 ( for 3 consecutive months): Chronic kidney disease 15 or less: Kidney failureMemorial Hermann Northeast HospitalGlucose Bujcj0551-21-81 20:24:00* Test Item Value Reference Range Interpretation Comments Glucose Level (test code = CSR5859) 351 74-118 H [facility] HospitalCalcium Vmrye5401-76-75 20:24:00* Test Item Value Reference Range Interpretation Comments Calcium Level (test code = 48997-0) 8.7 8.4-10.2 [facility] HospitalTotal Bdsdtaitx3521-07-09 20:24:00* Test Item Value Reference Range Interpretation Comments Total Bilirubin (test code = 1975-2) 0.3 0.2-1.2 [facility] HospitalAspartate Amino Transf (AST/SGOT) 2018-12-04 20:24:00* Test Item Value Reference Range Interpretation Comments Aspartate Amino Transf (AST/SGOT) (test code = Aspartate Amino Transf (AST/SGOT)) 23 5-34 [facility] HospitalAlanine Aminotransferase (ALT/SGPT) 2018-12-04 20:24:00* Test Item Value Reference Range Interpretation Comments Alanine Aminotransferase (ALT/SGPT) (test code = 1742-6) 31 0-55 [facility] HospitalTotal Ruczqhy9567-74-31 20:24:00* Test Item Value Reference Range Interpretation Comments Total Protein (test code = 2885-2) 6.4 6.5-8.1 L [facility] HospitalAlbumin2019-06-28 20:24:00* Test Item Value Reference Range Interpretation Comments Albumin (test code = 1751-7) 3.1 3.5-5.0 L [facility] HospitalGlobulin2019-06-28 20:24:00* Test Item Value Reference Range Interpretation Comments Globulin (test code = 05489-2) 3.3 2.3-3.5 [facility] HospitalAlbumin/Globulin Jqwmw8408-21-97 20:24:00 * Test Item Value Reference Range Interpretation Comments Albumin/Globulin Ratio (test code = 1759-0) 0.9 0.8-2.0 [facility] HospitalCHES SINGLE (PORTABLE)2018-12-04 20:20:00 [facility] [address] [address] Patient Name: ÁNGELA WASHINGTON MR #: [id number] : 1935 Age/Sex: 83/F Req #: [id number] Adm Physician: Ordered by: CLIFTON VARGAS MD Report #: [id number] Location: ER Room/Bed: Procedure: [id number] DX/CHES T SINGLE (PORTABLE) Exam Date: Exam Time: REPORT STATUS: Signed A single frontal v iew of the chest. HISTORY: CHEST PAIN, right side, arm pain COMPARISO N: Chest radiograph October 11, 2018 and April 24, 2015. DISCUSSION: Portable technique, limits sensitivity of the exam. Soft tissue attenuation p artially limits sensitivity of the exam. Multiple overlying monitoring leads. Tubes/Lines: A left-sided implanted cardiac device. Lungs and pleura: Low lung volumes result in bibasilar vascular crowding, accentuation of the pulmonary interstitial markings, central pulmonary vasculature, and the cardiac silhouette. Allowing for these limitations, the findings are as follows: Diffusely increased interstitial markings. More confluent patchy central predo minant opacities. A stable 4 mm calcific density projecting at the right upper lung, compatible with a calcified granuloma. No definite pleural effusion or pneumothorax is identified. Heart and mediastinum: The cardiac silhou ette and central pulmonary vasculature are enlarged. Bones and soft tissues : Multiple median sternotomy wires. IMPRESSION: Findings compat ible with volume overload resulting in central pulmonary vascular congestion a nd moderate pulmonary edema. Signed by: Dr. Josue Olivia D.O., M.M.M. on 12/04/2018 8:23 PM Dictated By: JOSUE OLIVIA DO Electronically S igned By: JOSUE OLIVIA DO on 12/04/182022 Transcribed By: MALIA on 12/04/18 2 023 COPY TO: CLIFTON VARGAS MD B-Type Natriuretic Peptide 2018-12-04 20:19:00* Test Item Value Reference Range Interpretation Comments B-Type Natriuretic Peptide (test code = 74423-7) 97.3 0-100 [facility] HospitalProthrombin Olqy9727-16-96 20:04:00* Test Item Value Reference Range Interpretation Comments Prothrombin Time (test code = 5902-2) 22.8 11.9-14.5 H [facility] HospitalProthromb Time International Ratio 2018-12-04 20:04:00* Test Item Value Reference Range Interpretation Comments Prothromb Time International Ratio (test code = 6301-6) 1.94 Oral Anticoagulant Therapy INR Values:1. Low Intensity Therapy 1.5 - 2.02 . Moderate Intensity Therapy 2.0 - 3.03. High Intensity Therapy(1) 2.5 - 3. 54. High Intensity Therapy(2) 3.0 - 4.05. Panic Value INR > 5.0 [facility] HospitalActivated Partial Thromboplast Time 2018-12-04 20:04:00* Test Item Value Reference Range Interpretation Comments Activated Partial Thromboplast Time (test code = 97638-6) 39.8 23.8-35.5 H [facility] HospitalWhite Blood Dzasx6475-61-48 19:49:00* Test Item Value Reference Range Interpretation Comments White Blood Count (test code = 6690-2) 6.74 4.8-10.8 [facility] HospitalRed Blood Ewups9554-81-01 19:49:00* Test Item Value Reference Range Interpretation Comments Red Blood Count (test code = 789-8) 3.56 3.6-5.1 L [facility] HospitalHemoglobin2019-06-28 19:49:00* Test Item Value Reference Range Interpretation Comments Hemoglobin (test code = 42297-5) 10.6 12.0-16.0 L [facility] HospitalHematocrit2019-06-28 19:49:00* Test Item Value Reference Range Interpretation Comments Hematocrit (test code = 4544-3) 31.9 34.2-44.1 L [facility] HospitalMean Corpuscular Kwacnm3416-59-97 19:49:00* Test Item Value Reference Range Interpretation Comments Mean Corpuscular Volume (test code = 787-2) 89.6 81-99 [facility] HospitalMean Corpuscular Ndqypbkzko1055-28-25 19:49:00* Test Item Value Reference Range Interpretation Comments Mean Corpuscular Hemoglobin (test code = 785-6) 29.8 28-32 [facility] HospitalMean Corpuscular Hemoglobin Concent 2018-12-04 19:49:00* Test Item Value Reference Range Interpretation Comments Mean Corpuscular Hemoglobin Concent (test code = 786-4) 33.2 31-35 [facility] HospitalRed Cell Distribution Zawed8986-41-83 19:49:00* Test Item Value Reference Range Interpretation Comments Red Cell Distribution Width (test code = 53804-4) 14.6 11.7 -14.4 H [facility] HospitalPlatelet Fysyn7778-75-11 19:49:00* Test Item Value Reference Range Interpretation Comments Platelet Count (test code = 777-3) 223 140-360 [facility] HospitalNeutrophils (%) (Auto)2018-12-04 19:49:00 * Test Item Value Reference Range Interpretation Comments Neutrophils (%) (Auto) (test code = 18603-1) 54.3 38.7-80.0 [facility] HospitalLymphocytes (%) (Auto)2018-12-04 19:49:00 * Test Item Value Reference Range Interpretation Comments Lymphocytes (%) (Auto) (test code = 736-9) 28.5 18.0-39.1 [facility] HospitalMonocytes (%) (Auto)2018-12-04 19:49:00* Test Item Value Reference Range Interpretation Comments Monocytes (%) (Auto) (test code = 5905-5) 11.3 4.4-11.3 [facility] HospitalEosinophils (%) (Auto)2018-12-04 19:49:00 * Test Item Value Reference Range Interpretation Comments Eosinophils (%) (Auto) (test code = 713-8) 4.5 0.0-6.0 [facility] HospitalBasophils (%) (Auto)2018-12-04 19:49:00* Test Item Value Reference Range Interpretation Comments Basophils (%) (Auto) (test code = 706-2) 0.7 0.0-1.0 [facility] HospitalIM GRANULOCYTES %2018-12-04 19:49:00* Test Item Value Reference Range Interpretation Comments IM GRANULOCYTES % (test code = IM GRANULOCYTES %) 0.7 0.0- 1.0 [facility] HospitalNeutrophils # (Auto)2018-12-04 19:49:00* Test Item Value Reference Range Interpretation Comments Neutrophils # (Auto) (test code = 751-8) 3.7 2.1-6.9 [facility] HospitalLymphocytes # (Auto)2018-12-04 19:49:00* Test Item Value Reference Range Interpretation Comments Lymphocytes # (Auto) (test code = 44835-4) 1.9 1.0-3.2 [facility] HospitalMonocytes # (Auto)2018-12-04 19:49:00* Test Item Value Reference Range Interpretation Comments Monocytes # (Auto) (test code = 742-7) 0.8 0.2-0.8 [facility] HospitalEosinophils # (Auto)2018-12-04 19:49:00* Test Item Value Reference Range Interpretation Comments Eosinophils # (Auto) (test code = 711-2) 0.3 0.0-0.4 [facility] HospitalBasophils # (Auto)2018-12-04 19:49:00* Test Item Value Reference Range Interpretation Comments Basophils # (Auto) (test code = 704-7) 0.1 0.0-0.1 [facility] HospitalAbsolute Immature Granulocyte (auto 2018-12-04 19:49:00* Test Item Value Reference Range Interpretation Comments Absolute Immature Granulocyte (auto (shaq t code = Absolute Immature Granulocyte (auto) 0.05 0-0.1 [facility] HospitalCreatine Kinase ZQ3667-53-85 23:44:00* Test Item Value Reference Range Interpretation Comments Creatine Kinase MB (test code = 64276-7) 2.80 0-5.0 [facility] HospitalTroponin V1995-95-11 23:44:00* Test Item Value Reference Range Interpretation Comments Troponin I (test code = SSY1368) < 0.001 0-0.300 [facility] Kudfv0868-60-12 23:35:00* Test Item Value Reference Range Interpretation Comments Sodium Level (test code = 2951-2) 131 136-145 L [facility] HospitalPotassium Mweln0155-28-82 23:35:00* Test Item Value Reference Range Interpretation Comments Potassium Level (test code = 2823-3) 4.2 3.5-5.1 [facility] HospitalChloride Spgxf3118-63-90 23:35:00* Test Item Value Reference Range Interpretation Comments Chloride Level (test code = 2075-0) 96 98-107 L [facility] HospitalCarbon Dioxide Zzeym2729-17-93 23:35:00* Test Item Value Reference Range Interpretation Comments Carbon Dioxide Level (test code = 2028-9) 24 22-29 [facility] HospitalAnion Fhk2777-55-37 23:35:00* Test Item Value Reference Range Interpretation Comments Anion Gap (test code = 69448-4) 15.2 8-16 [facility] HospitalBlood Urea Fnehzbdc2941-66-67 23:35:00* Test Item Value Reference Range Interpretation Comments Blood Urea Nitrogen (test code = 3094-0) 32 7-26 H [facility] HospitalCreatinine2019-05-05 23:35:00* Test Item Value Reference Range Interpretation Comments Creatinine (test code = 2160-0) 1.26 0.57-1.11 H [facility] HospitalBUN/Creatinine Uqxki5397-57-83 23:35:00* Test Item Value Reference Range Interpretation Comments BUN/Creatinine Ratio (test code = 3097-3) 25 6-25 [facility] HospitalEstimat Glomerular Filtration Rate 2018-10-11 23:35:00* Test Item Value Reference Range Interpretation Comments Estimat Glomerular Filtration Rate (test code = 885320787) 41 >60 L Ranges were taken from the National Kidney Disease Education Program and the [facility] Kidney Foundation literature.Reference ranges:60 or greater: Preana03-43 ( for 3 consecutive months): Chronic kidney disease 15 or less: Kidney failureMemorial Hermann Northeast HospitalGlucose Yvppd0994-65-53 23:35:00* Test Item Value Reference Range Interpretation Comments Glucose Level (test code = OYX9969) 325 74-118 H [facility] HospitalCalcium Uyodm3098-86-17 23:35:00* Test Item Value Reference Range Interpretation Comments Calcium Level (test code = 76758-0) 9.0 8.4-10.2 [facility] HospitalTotal Cmbenbjxp0656-59-39 23:35:00* Test Item Value Reference Range Interpretation Comments Total Bilirubin (test code = 1975-2) 0.7 0.2-1.2 [facility] HospitalAspartate Amino Transf (AST/SGOT) 2018-10-11 23:35:00* Test Item Value Reference Range Interpretation Comments Aspartate Amino Transf (AST/SGOT) (test code = Aspartate Amino Transf (AST/SGOT)) 23 5-34 [facility] HospitalAlanine Aminotransferase (ALT/SGPT) 2018-10-11 23:35:00* Test Item Value Reference Range Interpretation Comments Alanine Aminotransferase (ALT/SGPT) (test code = 1742-6) 27 0-55 [facility] HospitalTotal Ivkylxw9814-93-25 23:35:00* Test Item Value Reference Range Interpretation Comments Total Protein (test code = 2885-2) 6.8 6.5-8.1 [facility] HospitalAlbumin2019-05-05 23:35:00* Test Item Value Reference Range Interpretation Comments Albumin (test code = 1751-7) 3.2 3.5-5.0 L [facility] HospitalGlobulin2019-05-05 23:35:00* Test Item Value Reference Range Interpretation Comments Globulin (test code = 47288-0) 3.6 2.3-3.5 H [facility] HospitalAlbumin/Globulin Kwglu6265-42-54 23:35:00 * Test Item Value Reference Range Interpretation Comments Albumin/Globulin Ratio (test code = 1759-0) 0.9 0.8-2.0 [facility] HospitalAlkaline Wznmjzffqgn9533-06-52 23:35:00* Test Item Value Reference Range Interpretation Comments Alkaline Phosphatase (test code = 6768-6) 71 40-150 [facility] HospitalCreatine Iqfrpv0159-69-02 23:35:00* Test Item Value Reference Range Interpretation Comments Creatine Kinase (test code = 2157-6) 117 29-168 [facility] HospitalAlkaline Fvgcddgrjmk7739-74-37 23:35:00* Test Item Value Reference Range Interpretation Comments Alkaline Phosphatase (test code = 6768-6) 71 40-150 [facility] HospitalCreatine Lfhmpc7878-74-14 23:35:00* Test Item Value Reference Range Interpretation Comments Creatine Kinase (test code = 2157-6) 117 29-168 [facility] HospitalUrine CPP7316-87-09 21:55:00* Test Item Value Reference Range Interpretation Comments Urine WBC (test code = 5821-4) 0-5 0-5 [facility] HospitalUrine CMH4814-18-63 21:55:00* Test Item Value Reference Range Interpretation Comments Urine RBC (test code = 08159-2) 0-5 0-5 [facility] HospitalUrine Ddkvvvga8248-61-71 21:55:00* Test Item Value Reference Range Interpretation Comments Urine Bacteria (test code = 18613-0) FEW NONE [facility] HospitalUrine Epithelial Zdonc1645-48-40 21:55:00 * Test Item Value Reference Range Interpretation Comments Urine Epithelial Cells (test code = 21780-2) MODERATE NONE [facility] HospitalUrine Fadtl2443-67-42 21:44:00* Test Item Value Reference Range Interpretation Comments Urine Color (test code = 5778-6) YELLOW YELLOW [facility] HospitalUrine Podihab1957-31-85 21:44:00* Test Item Value Reference Range Interpretation Comments Urine Clarity (test code = 91297-6) HAZY CLEAR [facility] HospitalUrine Specific Epjbmfj2960-00-56 21:44:00 * Test Item Value Reference Range Interpretation Comments Urine Specific Cornelius (test code = 5811-5) 1.015 1.010-1.02 5 [facility] HospitalUrine xD2900-37-38 21:44:00* Test Item Value Reference Range Interpretation Comments Urine pH (test code = 43799-6) 6 5-7 [facility] HospitalUrine Leukocyte Zazrhcgw3238-32-01 21:44:00* Test Item Value Reference Range Interpretation Comments Urine Leukocyte Esterase (test code = 5799-2) 1+ NEGATIVE H [facility] HospitalUrine Euevdnq7161-00-96 21:44:00* Test Item Value Reference Range Interpretation Comments Urine Nitrite (test code = 88625-8) NEGATIVE NEGATIVE [facility] HospitalUrine Ocubzhk0746-80-45 21:44:00* Test Item Value Reference Range Interpretation Comments Urine Protein (test code = 5804-0) NEGATIVE NEGATIVE [facility] HospitalUrine Glucose (UA)2018-10-11 21:44:00* Test Item Value Reference Range Interpretation Comments Urine Glucose (UA) (test code = 2349-9) NEGATIVE NEGATIVE [facility] HospitalUrine Movkjpm5435-05-72 21:44:00* Test Item Value Reference Range Interpretation Comments Urine Ketones (test code = 80605-2) NEGATIVE NEGATIVE [facility] HospitalUrine Kmnrmpwbmasx9292-53-44 21:44:00* Test Item Value Reference Range Interpretation Comments Urine Urobilinogen (test code = 74591-3) 0.2 0.2-1 [facility] HospitalUrine Gtjvysnwg4532-32-82 21:44:00* Test Item Value Reference Range Interpretation Comments Urine Bilirubin (test code = 1978-6) NEGATIVE NEGATIVE [facility] HospitalUrine Cwykh3263-94-34 21:44:00* Test Item Value Reference Range Interpretation Comments Urine Blood (test code = 29280-2) NEGATIVE NEGATIVE [facility] HospitalCHEST 2 SWVXU5445-33-63 21:41:00 [facility] [address] [address] Patient Name: ÁNGELA WASHINGTON MR #: [id number] : 1935 Age/Sex: 82/F Req #: [id number] Adm Physician: Ordered by: KENDALL LIU MD Report #: [id number] Location: ER Room/Bed: Procedure: [id number] DX/CH EST 2 VIEWS Exam Date: 10/11/18 Exam Time: 2054 REPORT STATUS: Signed EXAMINATION: CHEST 2 VIEWS INDICATION: ABD PAIN [id number] COMPARISON: None available FINDINGS: PA and lateral views TU BES and LINES: Left chest wall single lead cardiac device in place. Distal ti p projecting over the right ventricle. Right upper lobe nodular density, likel y a calcified granuloma. LUNGS: Lungs are well inflated. Mild central vas cular congestion. PLEURA: No pleural effusion or pneumothorax. HEART AND MEDIASTINUM: The cardiomediastinal silhouette is enlarged. Median sternot jakub wires and mediastinal surgical clips. Aorta is tortuous. BONES AND SOFT TISSUES: No acute osseous lesion. Soft tissues are unremarkable. UPPER ABDOMEN: No free air under the diaphragm. IMPRESSION: Enlarged card iomediastinal silhouette and mild central vascular congestion. Signed by : Dr. Chelo Finn MD on 10/11/2018 9:43 PM Dictated By: CHELO FINN MD 42 Transcribed By: Jairo LEMUS on 10/11/182142 COPY TO: KENDALL LIU MD White Blood Fqyoc6113-22-88 21:13:00* Test Item Value Reference Range Interpretation Comments White Blood Count (test code = 6690-2) 7.71 4.8-10.8 [facility] HospitalRed Blood Qxaja5044-14-95 21:13:00* Test Item Value Reference Range Interpretation Comments Red Blood Count (test code = 789-8) 4.20 3.6-5.1 [facility] HospitalHemoglobin2019-05-05 21:13:00* Test Item Value Reference Range Interpretation Comments Hemoglobin (test code = 59718-1) 11.9 12.0-16.0 L [facility] HospitalHematocrit2019-05-05 21:13:00* Test Item Value Reference Range Interpretation Comments Hematocrit (test code = 4544-3) 35.0 34.2-44.1 [facility] HospitalMean Corpuscular Ichtzp6782-90-10 21:13:00* Test Item Value Reference Range Interpretation Comments Mean Corpuscular Volume (test code = 787-2) 83.3 81-99 [facility] HospitalMean Corpuscular Kcflobtbxe7496-60-45 21:13:00* Test Item Value Reference Range Interpretation Comments Mean Corpuscular Hemoglobin (test code = 785-6) 28.3 28-32 [facility] HospitalMean Corpuscular Hemoglobin Concent 2018-10-11 21:13:00* Test Item Value Reference Range Interpretation Comments Mean Corpuscular Hemoglobin Concent (test code = 786-4) 34.0 31-35 [facility] HospitalRed Cell Distribution Xhrrn2952-53-86 21:13:00* Test Item Value Reference Range Interpretation Comments Red Cell Distribution Width (test code = 85575-0) 16.9 11.7 -14.4 H [facility]ate[facility] [id number] 21:13:00* Test Item Value Reference Range Interpretation Comments Platelet Count (test code = 777-3) 233 140-360 [facility]Neutrophils (%) (Auto)2018-10-11 21:13:00 * Test Item Value Reference Range Interpretation Comments Neutrophils (%) (Auto) (test code = 15657-6) 55.8 38.7-80.0 [facility]Lymphocytes (%) (Auto)2018-10-11 21:13:00 * Test Item Value Reference Range Interpretation Comments Lymphocytes (%) (Auto) (test code = 736-9) 30.0 18.0-39.1 [facility]Mon[facility] (%) (Auto)2018-10-11 21:13:00* Test Item Value Reference Range Interpretation Comments Monocytes (%) (Auto) (test code = 5905-5) 10.5 4.4-11.3 [facility]Eosinophils (%) (Auto)2018-10-11 21:13:00 * Test Item Value Reference Range Interpretation Comments Eosinophils (%) (Auto) (test code = 713-8) 2.5 0.0-6.0 [facility]Basophils (%) (Auto)2018-10-11 21:13:00* Test Item Value Reference Range Interpretation Comments Basophils (%) (Auto) (test code = 706-2) 0.6 0.0-1.0 [facility]IM [facility]ULOC[facility]TES %2018-10-11 21:13:00* Test Item Value Reference Range Interpretation Comments IM GRANULOCYTES % (test code = IM GRANULOCYTES %) 0.6 0.0- 1.0 [facility]Neutrophils # (Auto)2018-10-11 21:13:00* Test Item Value Reference Range Interpretation Comments Neutrophils # (Auto) (test code = 751-8) 4.3 2.1-6.9 [facility] HospitalLymphocytes # (Auto)2018-10-11 21:13:00* Test Item Value Reference Range Interpretation Comments Lymphocytes # (Auto) (test code = 61445-5) 2.3 1.0-3.2 [facility] HospitalMonocytes # (Auto)2018-10-11 21:13:00* Test Item Value Reference Range Interpretation Comments Monocytes # (Auto) (test code = 742-7) 0.8 0.2-0.8 [facility]Eosinophils # (Auto)2018-10-11 21:13:00* Test Item Value Reference Range Interpretation Comments Eosinophils # (Auto) (test code = 711-2) 0.2 0.0-0.4 [facility]Basophils # (Auto)2018-10-11 21:13:00* Test Item Value Reference Range Interpretation Comments Basophils # (Auto) (test code = 704-7) 0.1 0.0-0.1 [facility] HospitalAbsolute Immature Granulocyte (auto 2018-10-11 21:13:00* Test Item Value Reference Range Interpretation Comments Absolute Immature Granulocyte (auto (shaq t code = Absolute Immature Granulocyte (auto) 0.05 0-0.1 [facility] HospitalChemistry - BNP, HgbA1c, [id number] 14:29:00* Test Item Value Reference Range Interpretation Comments Chemistry - BNP, HgbA1c, PTHi (test code = BNP) 180.7 pg/mL 0-100 H [id number] 14:17:00* Test Item Value Reference Range Interpretation Comments Chemistry (test code = NA-T) 136 mmol/L 136-145 N Chemistry (test code = K-T) 4.2 mmol/L 3.5-5.1 N Chemistry (test code = CL) 101 mmol/L 98-107 N Chemistry (test code = CO2) 25 mmol/L 23-31 N Chemistry (test code = ANGP) 14 mmol/L 10-20 N Chemistry (test code = BUN) 16 mg/dL 9.8-20.1 N Chemistry (test code = CREATT) 0.97 mg/dL 0.6-1.1 N Chemistry (test code = EGFRMDRD) 55 Reference Range for Estimated GFR: Greater than 90 mL/min/1.73 m2NOTE:The MDRD equation has not been validated for use with theelderly (over 70 years of age), women, patien tswith serious comorbid condition or persons with extremes ofbody size, muscle mass, or nutritional status. Chemistry (test code = GLU-T) 295 mg/dL 83-110 H Chemistry (test code = CA) 9.0 mg/dL 7.8-10.44 N [id number] 14:09:00* Test Item Value Reference Range Interpretation Comments Hematology (test code = WBCT) 6.1 thou/uL 4.8-10.8 N Hematology (test code = RBCT) 4.05 mill/uL 4.20-5.40 L Hematology (test code = HGBT) 9.9 g/dL 12.0-16.0 L Hematology (test code = HCTT) 31.9 % 36.0-47.0 L Hematology (test code = MCV) 78.9 fL 78.0-98.0 N Hematology (test code = MCH) 24.5 pg 27.0-31.0 L Hematology (test code = MCHC) 31.0 g/dL 32.0-36.0 L Hematology (test code = RDW) 14.2 % 11.5-14.5 N Hematology (test code = PLTT) 256 thou/uL 130-400 N Hematology (test code = MPV) 6.0 fL 7.4-10.4 L Hematology (test code = %NEUT) 57.7 % 42.0-75.0 N Hematology (test code = %LYMPH) 26.9 % 21.0-51.0 N Hematology (test code = %MONO) 10.8 % 0.0-10.0 H Hematology (test code = %EOS) 3.0 % 0.0-10.0 N Hematology (test code = %BASO) 1.5 % 0.0-1.0 H Hematology (test code = NEUT#) 3.5 thou/uL 1.40-6.50 N Hematology (test code = LYMPH#) 1.6 thou/uL 1.20-3.40 N Hematology (test code = MONO#) 0.7 thou/uL 0.11-0.59 H Hematology (test code = EOS#) 0.2 thou/uL 0.0-0.7 N Hematology (test code = BASO#) 0.1 thou/uL 0.0-0.2 N Chemistry - BNP, HgbA1c, [id number] 12:39:00* Test Item Value Reference Range Interpretation Comments Chemistry - BNP, HgbA1c, PTHi (test code = BNP) 117.0 pg/mL 0-100 H [id number] 12:30:00* Test Item Value Reference Range Interpretation Comments Chemistry (test code = NA-T) 133 mmol/L 136-145 L Chemistry (test code = K-T) 4.4 mmol/L 3.5-5.1 N Chemistry (test code = CL) 100 mmol/L 98-107 N Chemistry (test code = CO2) 22 mmol/L 23-31 L Chemistry (test code = ANGP) 15 mmol/L 10-20 N Chemistry (test code = BUN) 19 mg/dL 9.8-20.1 N Chemistry (test code = CREATT) 1.13 mg/dL 0.6-1.1 H Chemistry (test code = EGFRMDRD) 46 Reference Range for Estimated GFR: Greater than 90 mL/min/1.73 m2NOTE:The MDRD equation has not been validated for use with theelderly (over 70 years of age), women, patien tswith serious comorbid condition or persons with extremes ofbody size, muscle mass, or nutritional status. Chemistry (test code = GLU-T) 225 mg/dL 83-110 H Chemistry (test code = CA) 9.1 mg/dL 7.8-10.44 N Chemistry (test code = TBILI) 0.4 mg/dL 0.2-1.2 N Chemistry (test code = TP) 7.1 g/dL 6.0-8.3 N Chemistry (test code = ALB) 3.6 g/dL 3.4-4.8 N Chemistry (test code = GLOB) 3.5 g/dL 2.4-3.5 N Chemistry (test code = AG) 1.0 g/dL 1.2-2.2 L Chemistry (test code = ALP) 84 U/L 40-150 N Chemistry (test code = AST) 12 U/L 5-34 N Chemistry (test code = ALT) 13 U/L 8-55 N [id number] 12:23:00* Test Item Value Reference Range Interpretation Comments Urinalysis (test code = UACLR) Yellow Yellow Urinalysis (test code = UACLY) Clear Clear Urinalysis (test code = SPGR) 1.010 1.005-1.030 N Urinalysis (test code = BHAVIK) 6.0 5.0-9.0 N Urinalysis (test code = UALEU) Negative Negative Urinalysis (test code = UANIT) Negative Negative Urinalysis (test code = PROUADIP) Negative mg/dL Neg-Trace Urinalysis (test code = GLUCU) Negative mg/dL Negative Urinalysis (test code = KETU) Negative mg/dL Negative Urinalysis (test code = UAUROB) 0.2 mg/dL 0.2-1.0 Urinalysis (test code = UABIL) Negative Negative Urinalysis (test code = UABLD) Negative Negative Urine Source: Urine Straight [id number] 12:13:00* Test Item Value Reference Range Interpretation Comments Hematology (test code = WBCT) 6.9 thou/uL 4.8-10.8 N Hematology (test code = RBCT) 4.04 mill/uL 4.20-5.40 L Hematology (test code = HGBT) 10.1 g/dL 12.0-16.0 L Hematology (test code = HCTT) 31.4 % 36.0-47.0 L Hematology (test code = MCV) 77.7 fL 78.0-98.0 L Hematology (test code = MCH) 25.1 pg 27.0-31.0 L Hematology (test code = MCHC) 32.2 g/dL 32.0-36.0 N Hematology (test code = RDW) 13.9 % 11.5-14.5 N Hematology (test code = PLTT) 289 thou/uL 130-400 N Hematology (test code = MPV) 5.7 fL 7.4-10.4 L Hematology (test code = %NEUT) 55.9 % 42.0-75.0 N Hematology (test code = %LYMPH) 28.0 % 21.0-51.0 N Hematology (test code = %MONO) 11.6 % 0.0-10.0 H Hematology (test code = %EOS) 3.5 % 0.0-10.0 N Hematology (test code = %BASO) 1.1 % 0.0-1.0 H Hematology (test code = NEUT#) 3.8 thou/uL 1.40-6.50 N Hematology (test code = LYMPH#) 1.9 thou/uL 1.20-3.40 N Hematology (test code = MONO#) 0.8 thou/uL 0.11-0.59 H Hematology (test code = EOS#) 0.2 thou/uL 0.0-0.7 N Hematology (test code = BASO#) 0.1 thou/uL 0.0-0.2 N [id number] 11:56:00* Test Item Value Reference Range Interpretation Comments Accuchek (test code = ACU) 225 mg/dL 70-110 H Culture, [id number] 11:48:00* Test Item Value Reference Range Interpretation Comments Culture, Urine (test code = URC) NF Culture, Urine (test code = URC1) 25 MSF [id number] 10:54:00* Test Item Value Reference Range Interpretation Comments Accuchek (test code = ACU) 168 mg/dL 70-110 H R EPORT RESULTNOTIFIED NURSE [id number] 09:58:00* Test Item Value Reference Range Interpretation Comments Urinalysis (test code = UACLR) Yellow Yellow Urinalysis (test code = UACLY) Clear Clear Urinalysis (test code = SPGR) 1.010 1.005-1.030 N Urinalysis (test code = BHAVIK) 6.0 5.0-9.0 N Urinalysis (test code = UALEU) Negative Negative Urinalysis (test code = UANIT) Negative Negative Urinalysis (test code = PROUADIP) Negative mg/dL Neg-Trace Urinalysis (test code = GLUCU) Negative mg/dL Negative Urinalysis (test code = KETU) Negative mg/dL Negative Urinalysis (test code = UAUROB) 0.2 mg/dL 0.2-1.0 Urinalysis (test code = UABIL) Negative Negative Urinalysis (test code = UABLD) Negative Negative Urine Source: Urine [id number] 14:22:00* Test Item Value Reference Range Interpretation Comments Coagulation (test code = PT-T) 14.9 SEC 12.0-14.7 H Coagulation (test code = INR) 1.2 ATTENTION: READ CAREFULLY The recommended therapeutic ranges for oral anticoagulanttreatments are: Low Intensity: 1.5 - 2.0 Moderate Intensity: 2.0 - 3.0 High Intensity (1): 2.5 - 3.5 High Intensity (2): 3.0 - 4.0 CRITICAL: > 4.0 [id number] 14:34:00* Test Item Value Reference Range Interpretation Comments Coagulation (test code = PT-T) 14.1 SEC 12.0-14.7 N Coagulation (test code = INR) 1.1 ATTENTION: READ CAREFULLY The recommended therapeutic ranges for oral anticoagulanttreatments are: Low Intensity: 1.5 - 2.0 Moderate Intensity: 2.0 - 3.0 High Intensity (1): 2.5 - 3.5 High Intensity (2): 3.0 - 4.0 CRITICAL: > 4.0 [id number] 14:39:00* Test Item Value Reference Range Interpretation Comments Coagulation (test code = PT-T) 14.1 SEC 12.0-14.7 N Coagulation (test code = INR) 1.1 ATTENTION: READ CAREFULLY The recommended therapeutic ranges for oral anticoagulanttreatments are: Low Intensity: 1.5 - 2.0 Moderate Intensity: 2.0 - 3.0 High Intensity (1): 2.5 - 3.5 High Intensity (2): 3.0 - 4.0 CRITICAL: > 4.0 [id number] 20:20:00* Test Item Value Reference Range Interpretation Comments Coagulation (test code = PT-T) 13.8 SEC 12.0-14.7 N Coagulation (test code = INR) 1.1 ATTENTION: READ CAREFULLY The recommended therapeutic ranges for oral anticoagulanttreatments are: Low Intensity: 1.5 - 2.0 Moderate Intensity: 2.0 - 3.0 High Intensity (1): 2.5 - 3.5 High Intensity (2): 3.0 - 4.0 CRITICAL: > 4.0 Kmrdffmczgu8498-08-29 13:18:00* Test Item Value Reference Range Interpretation Comments Coagulation (test code = PT-T) 13.6 SEC 12.0-14.7 N Coagulation (test code = INR) 1.0 ATTENTION: READ CAREFULLY The recommended therapeutic ranges for oral anticoagulanttreatments are: Low Intensity: 1.5 - 2.0 Moderate Intensity: 2.0 - 3.0 High Intensity (1): 2.5 - 3.5 High Intensity (2): 3.0 - 4.0 CRITICAL: > 4.0 Lmczjjjcbgx6411-09-11 16:51:00* Test Item Value Reference Range Interpretation Comments Coagulation (test code = PT-T) 13.5 SEC 12.0-14.7 N Coagulation (test code = INR) 1.0 ATTENTION: READ CAREFULLY The recommended therapeutic ranges for oral anticoagulanttreatments are: Low Intensity: 1.5 - 2.0 Moderate Intensity: 2.0 - 3.0 High Intensity (1): 2.5 - 3.5 High Intensity (2): 3.0 - 4.0 CRITICAL: > 4.0 [id number] 07:41:00* Test Item Value Reference Range Interpretation Comments Coagulation (test code = PT-T) 14.0 SEC 12.0-14.7 N Coagulation (test code = INR) 1.1 ATTENTION: READ CAREFULLY The recommended therapeutic ranges for oral anticoagulanttreatments are: Low Intensity: 1.5 - 2.0 Moderate Intensity: 2.0 - 3.0 High Intensity (1): 2.5 - 3.5 High Intensity (2): 3.0 - 4.0 CRITICAL: > 4.0 Plftxmcckt7827-48-00 09:48:00* Test Item Value Reference Range Interpretation Comments Urinalysis (test code = UACLR) Yellow Yellow Urinalysis (test code = UACLY) Clear Clear Urinalysis (test code = SPGR) 1.015 1.005-1.030 N Urinalysis (test code = BHAVIK) 7.0 5.0-9.0 N Urinalysis (test code = UALEU) Negative Negative Urinalysis (test code = UANIT) Negative Negative Urinalysis (test code = PROUADIP) Negative mg/dL Neg-Trace Urinalysis (test code = GLUCU) Negative mg/dL Negative Urinalysis (test code = KETU) Negative mg/dL Negative Urinalysis (test code = UAUROB) 0.2 mg/dL 0.2-1.0 Urinalysis (test code = UABIL) Negative Negative Urinalysis (test code = UABLD) Negative Negative Urine Source: Urine VoidedChemistry - BNP, HgbA1c, [id number] 09:28:00* Test Item Value Reference Range Interpretation Comments Chemistry - BNP, HgbA1c, PTHi (test code = BNP) 75.4 pg/mL 0-100 N [id number] 09:26:00* Test Item Value Reference Range Interpretation Comments Hematology (test code = WBCT) 5.2 thou/uL 4.8-10.8 N Hematology (test code = RBCT) 4.33 mill/uL 4.20-5.40 N Hematology (test code = HGBT) 12.4 g/dL 12.0-16.0 N Hematology (test code = HCTT) 37.7 % 36.0-47.0 N Hematology (test code = MCV) 87.0 fl 81.0-99.0 N Hematology (test code = MCH) 28.8 pg 27.0-31.0 N Hematology (test code = MCHC) 33.0 g/dL 32.0-36.0 N Hematology (test code = RDW) 14.0 % 11.5-14.5 N Hematology (test code = PLTT) 189 thou/uL 130-400 N Hematology (test code = MPV) 6.6 fL 7.4-10.4 L Hematology (test code = NE) 57 % 42-75 N Hematology (test code = LY) 31 % 21-51 N Hematology (test code = MO) 9 % 0-10 N Hematology (test code = EO) 3 % 0-10 N Hematology (test code = AN) SLIGHT = 6-15 cells (100X) 0-5/hpf Hematology (test code = PCOMMENT) Appears Adequate [id number] 09:24:00* Test Item Value Reference Range Interpretation Comments Chemistry (test code = CKMBM-T) 2.0 ng/mL 0-6.6 N Chemistry (test code = TROPI-T) Less than 0.010 ng/mL < 0.028 Reference Range 0.00 - 0.028 ng/mL Negative 0.029 - 0.29 ng/mL Indeterminate Greater or Equal to 0.3 ng/mL Strongly suggests ME [id number] 09:23:00* Test Item Value Reference Range Interpretation Comments Chemistry (test code = NA-T) 136 mmol/L 136-145 N Chemistry (test code = K-T) 4.7 mmol/L 3.5-5.1 N Chemistry (test code = CL) 101 mmol/L 98-107 N Chemistry (test code = CO2) 22 mmol/L 23-31 L Chemistry (test code = ANGP) 18 mmol/L 10-20 N Chemistry (test code = BUN) 17 mg/dL 9.8-20.1 N Chemistry (test code = CREATT) 0.92 mg/dL 0.6-1.1 N Chemistry (test code = EGFRMDRD) 59 Reference Range for Estimated GFR: Greater than 90 mL/min/1.73 m2NOTE:The MDRD equation has not been validated for use with theelderly (over 70 years of age), women, patien tswith serious comorbid condition or persons with extremes ofbody size, muscle mass, or nutritional status. Chemistry (test code = GLU-T) 176 mg/dL 83-110 H Chemistry (test code = CA) 8.8 mg/dL 7.8-10.44 N [id number] 09:21:00* Test Item Value Reference Range Interpretation Comments Accuchek (test code = ACU) 174 mg/dL 70-110 H
--- OUTSIDE RECORDS SUMMARY | 2020-01-07 20:45 | XMS REPORT | Continuity of Care Document ---
Author Author [facility] Organization [facility] Address Unknown Phone Unavailable Care Team Providers Care Doctor Of Podiatry Name Role Phone [employer] Unavailable Un available Problems Problem [...] [facility] Coronary artery disease involving [place] coronary artery of [place] heart without angina pectoris Active Problem 11/12/2018 [...] 150 mg orally once LATTHE 06/10/2018 [facility] glipizide 1 tab(s) orally Active 10 mg orally Twice a da y [facility] 01/10/2018 [facility] Colace 1 cap(s) orally Active sodium 100 mg orally On ce daily [facility] 01/05/2018 [facility] Coreg 1 tab(s) orally Active 3.125 mg orally 2 times a day [facility] 09/17/2017 [facility] simethicone 1 tab(s) chewed Active 80 mg chewed 4 times a day (after meals and at bedtime) [facility] 09/17/2017 [facility] Warfarin Sodium Take one half orally Active 1 mg orally along with the 6 mg tablet once a day for [facility]THE 07/02/2017 [facility] furosemide 1 tab(s) orally Active 20 mg orally once a day [facility] 06/18/2017 [facility] gabapentin 1 cap(s) orally Active 300 mg orally Once at n ight [facility]THE 06/18/2017 [facility] Coumadin 1 tab(s) orally Active 6 mg orally once a day [facility] 04/17/2017 [facility] benzonatate 1 cap(s) orally Active 100 mg orally 3 times a day [facility] 03/12/2017 [facility] Warfarin Sodium 1 tab(s) orally Active 4 mg orally once a day [facility] 02/06/2017 [facility] hydrochlorothiazide-triamterene 1 cap(s) orally Active 25 mg-37.5 mg orally once a day [facility] 01/15/2017 [facility] Coumadin 1 tab(s) orally Active 2 mg orally once a day [facility] 01/15/2017 [facility] Xarelto 1 tab(s) orally Active 10 mg orally once a day [facility] 11/18/2016 [facility] furosemide 1 tab(s) orally Active 20 mg orally once a day [facility] 11/18/2016 [facility] Xarelto 1 tab(s) orally Active 10 mg orally once a day [facility] 11/18/2016 [facility] furosemide 1 tab(s) orally Active 20 mg orally once a day [facility] 11/18/2016 [facility] Humulin N 20 units subcutaneously Active human recombinant 100 units/mL subcutaneously Once daily [facility] 10/28/2016 [facility] lisinopril 1 tab(s) orally Active 5 mg orally once a day [facility] 10/28/2016 [facility] Humulin N 20 units subcutaneously Active human recombinant 100 units/mL subcutaneously Once daily [facility] 10/28/2016 [facility] lisinopril 1 tab(s) orally Active 5 mg orally once a day [facility] 10/28/2016 [facility] Levemir 20 units subcutaneously Active 100 units/mL subcutaneously Once daily [facility] 09/30/2016 [facility] Januvia [...] orally once a day [facility] 06/24/2016 [facility] furosemide 1 tab(s) orally Active 40 mg orally once a day [facility] 06/24/2016 [facility] Plavix 1 tab(s) orally No Longer Active 75 mg orally once a day [facility] 06/24/2016 [facility] pantoprazole 1 tab(s) orally Active 40 mg orally once a day [facility] 05/27/2016 [facility] pantoprazole 1 tab(s) orally Active 40 mg orally once a day [facility] 05/27/2016 [facility] furosemide 1 tab(s) orally No Longer Active 20 mg orally once a day [facility] 05/27/2016 [facility] Eliquis 1 tab(s) orally Active 2.5 mg orally 2 times a day [facility] 04/24/2016 [facility] levetiracetam 1 tab(s) orally Active 500 mg orally 2 times a day [facility] 09/09/2014 [facility] levetiracetam 1 tab(s) orally Active 500 mg orally 2 times a day [facility] 09/09/2014 [facility] levothyroxine 1 tab(s) orally Active 25 mcg (0.025 mg) orall y once a day [facility] 05/03/2014 [facility] levothyroxine 1 tab(s) orally Active 25 mcg (0.025 mg) orall y once a day [facility] 05/03/2014 [facility] Lyrica TAKE 1 CAPSULE BY MOUTH ONCE DAILY NA Active 25 MG [facility] Lyrica 1 cap(s) orally Active 25 mg orally once a day [facility] glipizide 1 tab(s) orally Active 10 mg orally Twice a da y [facility] atorvastatin 1 tab(s) orally Active 40 mg orally once a day (at bedtime) [facility] ferrous fumarate 1 tab(s) orally Active 325 mg orally once a da y [facility] MiraLax 17 g orally Active - orally once a day [facility] Savaysa 1 tab(s) orally Active 30 mg orally once a day [facility] gabapentin 1 cap(s) orally Active 300 mg orally Once cayden y [facility] Eliquis 1 tab(s) orally Active 2.5 mg orally 2 times a day [facility] Co Q-10 1 cap(s) orally Active 100 mg orally once a da y [facility] Humulin N INJECT 20 UNITS SUBC UTANEOUSLY ONCE DAILY NA Active 100U/ML [facility] lisinopril 1 tab(s) orally Active 2.5 mg orally once a da y [facility] Co Q-10 1 cap(s) orally Active 100 mg orally once a da y [facility] furosemide 1 tab(s) orally Active 40 mg orally once a day [facility] atorvastatin 1 tab(s) orally Active 40 mg orally once a day [facility] levetiracetam TAKE 1 TABLET BY MOUTH TWICE DAILY orally Active 750 mg orally 2 times a day [facility] triamterene/hctz TAKE 1 TABLET BY MOUTH ONCE DAILY NA Active 25 mg-37.5 mg [facility] Fish Oil 1 cap(s) orally Active 1200 mg orally Once eze ly [facility] Coumadin 1 tab(s) orally Active 6 mg orally once a day [facility] glipizide 1 tab(s) orally Active 10 mg orally Twice a da y [facility] Eliquis 1 tab(s) orally Active 2.5 mg orally 2 times a day [facility] Lyrica 1 cap(s) orally Active 25 mg orally once a day [facility] atorvastatin 1 tab(s) orally Active 40 mg orally once a day (at bedtime) [facility] gabapentin 1 cap(s) orally Active 300 mg orally Once cayden y [facility] furosemide 1 tab(s) orally Active 20 mg orally once a day [facility] Coumadin 1 tab(s) orally Active 5 mg orally once a day [facility] ferrous fumarate 1 tab(s) orally Active 325 mg orally once a da y [facility] MiraLax 17 g orally Active - orally once a day [facility] triamterene/hctz 1 tab(s) orally Active 25 mg-37.5 mg orally on ce a day [facility] Xarelto 1 tab(s) orally Active 15 mg orally once a day (in the evening) [facility] levetiracetam 1 tab(s) orally Active 750 mg orally 2 times a day [facility] Coumadin 1 tab(s) orally Active 4 mg orally once a day [facility] Coumadin 1 tab(s) orally Active 6 mg orally once a day [facility] levetiracetam 1 tab(s) orally Active 500 mg orally 2 times a day [facility] lisinopril 1 tab(s) orally Active 10 mg orally once a day [facility] Fish Oil 1 cap(s) orally Active 1200 mg orally Once eze ly [facility] spironolactone 1 tab(s) orally Active 25 mg orally Once daily [facility] Januvia 1 tab(s) orally Active 50 mg orally once a day [facility] furosemide 1 tab(s) orally No Longer Active 40 mg orally once a day [facility] Plavix 1 tab(s) orally No Longer [...] Date Status Source [facility] Unknown [id number] 04/24/20 16 04/24/2016 [facility] Unknown [id number] 04/24/20 16 04/24/2016 [facility] Unknown [id number] 04/24/20 16 04/24/2016 [facility] Unknown [id number] 04/24/20 16 04/24/2016 [facility] Unknown [id number] 04/24/20 16 04/24/2016 [facility] Unknown [id number] 04/24/20 16 04/24/2016 [facility] Unknown [id number] 04/29/20 04/29/2016 [facility] Unknown [id number] 04/29/20 16 04/29/2016 [facility] Unknown [id number] 04/29/20 16 04/29/2016 [facility] Unknown [id number] 04/29/20 16 04/29/2016 [facility] Unknown [id number] 04/29/20 16 04/29/2016 [facility] Unknown [id number] 05/27/20 16 05/27/2016 [facility] Unknown [id number] 05/27/20 16 05/27/2016 [facility] Unknown [id number] 05/27/20 16 05/27/2016 [facility] Unknown [id number] 05/27/20 16 05/27/2016 [facility] Unknown [id number] 06/24/19 17 06/24/2016 [facility] Unknown [id number] 06/24/19 17 06/24/2016 [facility] Unknown [id number] 06/24/19 17 06/24/2016 [facility] Message [id number] 07/15/19 17 07/15/2016 [facility],[place] Message [id number] 07/15/19 17 07/15/2016 [facility] Unknown [id number] 08/13/19 17 08/12/2016 [facility] Procedures [...] exercise? No August 12, 2016 08/12/2016 [facility] Family History Value Date S ource [...] not available Jun 24, 2016 07/02/2016 [facility] Advance Directives No Data Provided for This Section Functional Status No Data Provided for This Section
--- OUTSIDE RECORDS SUMMARY | 2020-01-07 20:46 | XMS REPORT | Continuity of Care Document ---
Author Author [facility] t Organization [facility] Address [address] [place] [address] Phone Unavailable Care Team Providers Care [employer] Supervisor Name Role Phone Mehgna LORENZO DO PCP COLIN ROSAS Attphys Unavailable KOABILIO SZYMANSKI Attphys Unavailable Kim NUNEZ Attphys Unavailable Karlo VARGAS Attphys Unavailable NOE S AMBJOI Attphys Unavailable Yaneth Tripathi Attphys Unavailable ADELSO JACKSON Attphys Unavailable Rema Mondragon Attphys Unavailable Allen Chapa Attphys Unavailable PHYSICIAN, [facility] Attphys Unavailable MAMADOU HAYNES Attphys Unavailable COLIN ROSAS Admphys Unavailable Payers Payer Name Policy Type Policy Number Effective Date Expiration Date Ernesto castro [facility] [id number] 2003 00:00:00 [facility] Medicare A & B [id number] 1999 00:00:00 [facility] Problems Condition Name Condition Details Condition Category Status Onset Date Resolution Date Last Treatment Date Treating Clinician Comments Source Cerebral infarction CVA (cerebral infarction) Problem Active 2014-06-09 00:00:00 [facility] Neck pain Cervical pain (neck) Problem Active [facility] Urinary tract infection Urinary tract infection Problem Active [facility] Acute gastrointestinal hemorrhage Acute GI hemorrhage Problem Active [facility] Anemia due to acute blood loss Anemia due to acute blood loss Problem Active [facility] Seizure Seizure Problem Active [facility] Confusion Confusion Problem Active [facility] Weakness Weakness Problem Active [facility] Metabolic disorder, unspecified Metabolic disorder, unspecified Active [...] 02:00:03 Cheko Lofton 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 Active Problem 11/12/2018 [...] [facility] Diagnosis Active 2018-09-02 02:00:42 [facility] Chronic atrial fibrillation Ch ronic [...] Med Clinic Diagnosis Active 2018-06-18 03:0 1:12 [facility] Bloody stool Bloo dy stool Active Diagnosis 06/18/2018 [facility] Diagnosis Active 2018-06-18 03:01:12 [facility] Cystitis Cyst itis Active Diagnosis 06/18/2018 [facility] Diagnosis Active 2018-06-18 03:01:12 Cheko Lofton Allergies, Adverse Reactions, Alerts Allergy Name Allergy Type Status Severity Reaction(s) Onset Date Inacti ve Date Treating Clinician Comments Source Penicillin Propensity to adverse reactions Active Mild "SIC K" 2018-12-04 00:00:00 [facility] Metformin Propensity to adverse reactions Active Mild DIZZY 2018-12-04 00:00:00 [facility] penicillin penicillin Active hives 2018-08-26 00:00:00 Cheko Lofton Family History Family Member Diagnosis Comments Start Date Stop Date Source Unknown Family Member Family History 2016-07-02 03:07:53 2 03:07:53 Cheko Lofton Social History Social Habit Start Date Stop Date Quantity Comments Source TobaccoUse: 2016-08-12 00:00:00 2016-08-12 00:00:00 [facility] Medications Ordered Medication Name Filled Medication Name Start Date Stop Da te Current Medication? Ordering Clinician Indication Dosage Frequency Signature (SIG) Comments Components Source Ceftin Ceftin 2019-06-30 00:00:00 Yes Abimael M Reese Sap Ppm Consultant 500 Every 12 Hours [facility] Ascorbic Acid 500 Mg Tablet Ascorbic Acid 500 Mg Tablet 2019-01-06 00:00:00 Yes Abimael M Reese Sap Ppm Consultant [address] [facility] Ferrous Sulfate 325 Mg Tablet. Ferrous Sulfate 325 Mg Tabl et. 2019-01-06 00:00:00 Yes Abimael M Reese Sap Ppm Consultant 325 Daily [facility] Aspirin (Aspirin Ec) 81 Mg Tablet. Aspirin (Aspirin Ec) 81 Mg Tablet. 2018-12-13 00:00:00 Yes Abimael Austin Rogers Sap Ppm Consultant 81 Every M orning [facility] Rivaroxaban (Xarelto) 10 Mg Tablet Rivaroxaban (Xarelto) 10 Mg Tablet 2018-12-13 00:00:00 Yes Abimael Geovanna Reese Sap Ppm Consultant 20 Daily At 1700 [facility] Furosemide (Lasix) 40 Mg Tablet Furosemide (Lasix) 40 Mg Tab let 2018-12-04 00:00:00 Yes Ambica Sandhir Do 40 Daily [facility] Prednisone 20 Mg Tab, 40 Mg Oral Prednisone 20 Mg Tab, 40 Mg Oral 2018-12-04 00:00:00 2019-01-04 00:00:00 No Ambica Sandhir Do 40 Daily [facility] spironolactone 2018-11-11 00:00:00 Yes REMA LATTHE 1 tab(s) [facility] Lyrica 2018-09-02 02:00:42 Yes REMA BAIRESTHE TAKE 1 CAPSULE BY MOUTH ONCE DAILY [facility] Humulin N 2018-09-02 02:00:42 Yes REMA BAIRESTHE INJECT 20 UNITS SUBCUTANEOUSLY ONCE DAILY [facility] lisinopril 2018-09-02 02:00:42 Yes REMA LATTHE 1 tab(s) [facility] Co Q-10 2018-09-02 02:00:42 Yes REMA LATTHE 1 c ap(s) [facility] furosemide 2018-09-02 02:00:42 Yes REMA LATTHE 1 tab(s) [facility] atorvastatin 2018-09-02 02:00:42 Yes REMA LATTHE 1 tab(s) [facility] levetiracetam 2018-09-02 02:00:42 Yes REMA LATTHE TAKE 1 TABLET BY MOUTH TWICE DAILY [facility] triamterene/hctz 2018-09-02 02:00:42 Yes REMA LATTHE TAKE 1 TABLET BY MOUTH ONCE DAILY [facility] Fish Oil 2018-09-02 02:00:42 Yes REMA LATTHE 1 cap(s) [facility] Coumadin 2018-09-02 02:00:42 Yes REMA LATTHE 1 tab(s) [facility] triamterene/hctz 2018-07-29 03:02:02 Yes REMA LATTHE 1 tab(s) [facility] Xarelto 2018-07-29 03:02:02 Yes REMA LATTHE 1 t ab(s) [facility] levetiracetam 2018-07-29 03:02:02 Yes REMA LATTHE 1 tab(s) [facility] Coumadin 2018-07-29 03:02:02 Yes REMA LATTHE 1 tab(s) [facility] senna 2018-07-13 00:00:00 Yes REMA LATTHE 1 tab (s) [facility] levetiracetam 2018-07-02 03:00:05 Yes REMA LATTHE 1 tab(s) [facility] lisinopril 2018-06-10 00:00:00 Yes REMA LATTHE 1 tab(s) [facility] cephalexin 2018-06-10 00:00:00 Yes REMA LATTHE 1 cap(s) [facility] Lotrimin AF Cream 2018-06-10 00:00:00 Yes REMA LATTHE 1 torsten [facility] lisinopril 2018-06-10 00:00:00 Yes REMA LATTHE 1 tab(s) [facility] fluconazole 2018-06-10 00:00:00 Yes REMA LATTHE 1 tab(s) [facility] glipizide 2018-01-10 00:00:00 Yes REMA LATTHE 1 tab(s) [facility] Colace 2018-01-05 00:00:00 Yes REMA LATTHE 1 ca p(s) [facility] atorvastatin 2017-12-24 02:04:04 Yes REMA LATTHE 1 tab(s) [facility] ferrous fumarate 2017-12-24 02:04:04 Yes REMA LATTHE 1 tab(s) [facility] MiraLax 2017-12-24 02:04:04 Yes REMA LATTHE 17 g [facility] lisinopril 2017-12-24 02:04:04 Yes REMA LATTHE 1 tab(s) [facility] Fish Oil 2017-12-24 02:04:04 Yes REMA LATTHE 1 cap(s) [facility] spironolactone 2017-12-24 02:04:04 Yes REMA LATTHE 1 tab(s) [facility] glipizide 2017-09-24 02:01:14 Yes REMA LATTHE 1 tab(s) [facility] gabapentin 2017-09-24 02:01:14 Yes REMA LATTHE 1 cap(s) [facility] Coumadin 2017-09-24 02:01:14 Yes REMA LATTHE 1 tab(s) [facility] Coreg 2017-09-17 00:00:00 Yes REMA LATTHE 1 tab (s) [facility] simethicone 2017-09-17 00:00:00 Yes REMA LATTHE 1 tab(s) [facility] Lyrica 2017-08-05 03:00:21 Yes REMA LATTHE 1 ca p(s) [facility] Coumadin 2017-07-18 03:00:10 Yes REMA LATTHE 1 tab(s) [facility] Warfarin Sodium 2017-07-02 00:00:00 Yes REMA LATTHE Take one half [facility] furosemide 2017-06-18 00:00:00 Yes REAM LATTHE 1 tab(s) [facility] gabapentin 2017-06-18 00:00:00 Yes REMA LATTHE 1 cap(s) [facility] Eliquis 2017-04-17 03:01:33 Yes REMA LATTHE 1 t ab(s) [facility] furosemide 2017-04-17 03:01:33 Yes REMA LATTHE 1 tab(s) [facility] Coumadin 2017-04-17 00:00:00 Yes REMA LATTHE 1 tab(s) [facility] benzonatate 2017-03-12 00:00:00 Yes REMA LATTHE 1 cap(s) [facility] Warfarin Sodium 2017-02-06 00:00:00 Yes REMA LATTHE 1 tab(s) [facility] hydrochlorothiazide-triamterene 2017-01-15 00:00:00 Yes REMA LATTHE 1 cap(s) [facility] Coumadin 2017-01-15 00:00:00 Yes REMA LATTHE 1 tab(s) [facility] Lyrica 2016-12-18 02:01:02 Yes REMA LATTHE 1 ca p(s) [facility] glipizide 2016-12-18 02:01:02 Yes REMA LATTHE 1 tab(s) [facility] atorvastatin 2016-12-18 02:01:02 Yes REMA LATTHE 1 tab(s) [facility] ferrous fumarate 2016-12-18 02:01:02 Yes REMA LATTHE 1 tab(s) [facility] MiraLax 2016-12-18 02:01:02 Yes REMA LATTHE 17 g [facility] gabapentin 2016-12-18 02:01:02 Yes REMA LATTHE 1 cap(s) [facility] Eliquis 2016-12-18 02:01:02 Yes REMA LATTHE 1 t ab(s) [facility] Co Q-10 2016-12-18 02:01:02 Yes REMA LATTHE 1 c ap(s) [facility] Savaysa 2016-12-12 02:02:10 Yes REMA LATTHE 1 t ab(s) [facility] Xarelto 2016-11-18 00:00:00 Yes REMA LATTHE 1 t ab(s) [facility] furosemide 2016-11-18 00:00:00 Yes REMA LATTHE 1 tab(s) [facility] Xarelto 2016-11-18 00:00:00 Yes REMA LATTHE 1 t ab(s) [facility] furosemide 2016-11-18 00:00:00 Yes REMA LATTHE 1 tab(s) [facility] Humulin N 2016-10-28 00:00:00 Yes REMA LATTHE 2 0 units [facility] lisinopril 2016-10-28 00:00:00 Yes REMA LATTHE 1 tab(s) [facility] Humulin N 2016-10-28 00:00:00 Yes REMA LATTHE 2 0 units [facility] lisinopril 2016-10-28 00:00:00 Yes REMA LATTHE 1 tab(s) [facility] Levemir 2016-09-30 00:00:00 Yes REMA LATTHE 20 units [facility] Januvia 2016-09-05 02:00:34 Yes REMA LATTHE 1 t ab(s) [facility] Januvia 2016-09-02 00:00:00 Yes REMA LATTHE 1 t ab(s) [facility] Ultram 2016-07-15 00:00:00 Yes REMA LATTHE 1 ta b(s) [facility] Ultram 2016-07-15 00:00:00 Yes REMA LATTHE 1 ta b(s) [facility] furosemide 2016-06-24 00:00:00 Yes REMA LATTHE 1 tab(s) [facility] furosemide 2016-06-24 00:00:00 Yes REMA LATTHE 1 tab(s) [facility] Plavix 2016-06-24 00:00:00 No REMA LATTHE 1 ta b(s) [facility] pantoprazole 2016-05-27 00:00:00 Yes REMA LATTHE 1 tab(s) [facility] pantoprazole 2016-05-27 00:00:00 Yes REMA LATTHE 1 tab(s) [facility] furosemide 2016-05-27 00:00:00 No REMA LATTHE 1 tab(s) [facility] furosemide 2016-05-03 03:03:23 No REMA LATTHE 1 tab(s) [facility] Plavix 2016-05-03 03:03:23 No REMA LATTHE 1 ta b(s) [facility] Eliquis 2016-04-24 00:00:00 Yes REMA LATTHE 1 t ab(s) [facility] levetiracetam 2014-09-09 00:00:00 Yes REMA LATTHE 1 tab(s) [facility] levetiracetam 2014-09-09 00:00:00 Yes REMA LATTHE 1 tab(s) [facility] levothyroxine 2014-05-03 00:00:00 Yes REMA LATTHE 1 tab(s) [facility] levothyroxine 2014-05-03 00:00:00 Yes REMA LATTHE 1 tab(s) [facility] Atorvastatin Calcium 20 Mg Tablet Atorvastatin Calcium 20 Mg Tablet Yes 40 Daily [facility] Carvedilol (Coreg) 3.125 Mg Tab Carvedilol (Coreg) 3.125 Mg Tab Yes Twice A Day [facility] Glipizide 5 Mg Tablet Glipizide 5 Mg Tablet Yes 5 Twice A Day [facility] Insulin Human Nph (Humulin N) 100 Units/Ml Ml Insulin Human Nph (Humulin N) 100 Units/Ml Ml Yes 23 Daily [facility] Levetiracetam (Keppra) 500 Mg Tablet Levetiracetam (Keppra) 500 Mg Tablet Yes 1250 Twice A Day [facility] Lidocaine/Phenyl/Glycer/Petrol (Preparation H Rapid-Li do Cream) 28 Gm Cream..g. Lidocaine/Phenyl/Glycer/Petrol (Preparation H Rapid-Lido Cream) 28 Gm Cream..g. Yes 28 As Needed [facility] Lisinopril 10 Mg Tablet Lisinopril 10 Mg Tablet Yes 2. 5 Daily [facility] Pantoprazole Sodium (Protonix) 40 Mg Tablet. Pantopr azole Sodium (Protonix) 40 Mg Tablet. Yes 40 Bedtime [facility] Polyethylene Glycol 3350 (Miralax) 17 Gm Powd.pack David yethylene Glycol 3350 (Miralax) 17 Gm Powd.pack Yes 17 As Needed [facility] Pregabalin (Lyrica) 25 Mg Cap Pregabalin (Lyrica) 25 Mg Cap Yes 25 Bedtime [facility] Sennosides (Senna Lax) 8.6 Mg Tablet Sennosides (Senna Lax) 8.6 Mg Tablet Yes 8.6 Daily as needed for Constipation [facility] Simethicone 80 Mg Chew Simethicone 80 Mg Chew Yes 125 As Needed [facility] Ubidecarenone (Coq-10) 100 Mg Capsule Ubidecarenone (Coq-10) 100 Mg Capsule Yes Daily [facility] Levetiracetam 500 Mg Tablet, 1000 Mg Oral Levetiraceta m 500 Mg Tablet, 1000 Mg Oral 2019-06-30 00:00:00 No 1000 Twice A Day [facility] [place]-3 Fatty Acids/Fish Oil ([place] 3 Fi Oil Softgel) 1 Each Capsule., 520 Mg Oral [place]-3 Fatty Acids/Fish Oil ([place] 3 Fi Oil Softgel) 1 Each Capsule., 520 Mg Oral 2019-04-12 00:00:00 No 520 Daily [facility] Phenyleph/Pramoxin/Glycr/W.pet (Preparation H Cream) 2 6 Gm Cream..g., Phenyleph/Pramoxin/Glycr/W.pet (Preparation H Cream) 26 Gm Cream..g., 2019-04-12 00:00:00 No [facility] Triamterene/Hctz (Triamterene-Hctz 37.5-25 Mg Tb) 1 Ea Tab, 1 Each Oral Triamterene/Hctz (Triamterene-Hctz 37.5-25 Mg Tb) 1 Ea Tab, 1 Each Oral 2019-01-06 00:00:00 No 1 [facility] Warfarin Sodium 3 Mg Tablet, 6 Mg Oral Warfarin Sodium 3 Mg Tabl et, 6 Mg Oral 2018-12-13 00:00:00 No 6 Daily [facility] Amlodipine Besylate 5 Mg Tablet, 5 Mg Oral Amlodipine Besylate 5 Mg Tablet, 5 Mg Oral 2018-12-12 00:00:00 No 5 Daily [facility] Clopidogrel Bisulfate (Plavix) 75 Mg Tablet, 75 Mg Ora l Clopidogrel Bisulfate (Plavix) 75 Mg Tablet, 75 Mg Oral 2018-12-12 00:00:00 No 75 Daily [facility] Doxycycline Hyclate 100 Mg Capsule, 100 Mg Oral Doxycy ortiz Hyclate 100 Mg Capsule, 100 Mg Oral 2018-12-12 00:00:00 No 100 Twi ce A Day [facility] Furosemide (Lasix) 40 Mg Tablet, 40 Mg Oral Furosemide (Lasix) 40 Mg Tablet, 40 Mg Oral 2018-12-12 00:00:00 No 40 Twice A Day [facility] Glyburide/Metformin Hcl (Glucovance 5-500 Mg Tablet) 1 Each Tablet, 2 Tab Oral Glyburide/Metformin Hcl (Glucovance 5-500 Mg Tablet) 1 Each Tablet, 2 Tab Oral 2018-12-12 00:00:00 No 2 Twice A Day [facility] Metoprolol Tartrate 50 Mg Tablet, 50 Mg Oral Metoprolo l Tartrate 50 Mg Tablet, 50 Mg Oral 2018-12-12 00:00:00 No 50 Twice A Day [facility] Sulfamethoxazole/Trimethoprim (Bactrim Ds Tablet) 1 Ea ch Tablet, 1 Tab Oral Sulfamethoxazole/Trimethoprim (Bactrim Ds Tablet) 1 Each Tablet, 1 Tab Oral 2018-12-12 00:00:00 No 1 Twice A Day [facility] Vital Signs Vital Name Observation Time Observation Value Comments Source Weight 2018-08-26 18:00:00 [facility] Height 2018-08-26 18:00:00 [facility] Respitory Rate 2018-08-26 18:00:00 [facility] Diastolic (mm Hg) 2018-08-26 18:00:00 [facility] Systolic (mm Hg) 2018-08-26 18:00:00 [facility] Heart Rate 2018-08-26 18:00:00 [facility] Weight 2018-07-20 19:00:00 [facility] Height 2018-07-20 19:00:00 [facility] Respitory Rate 2018-07-20 19:00:00 [facility] Diastolic (mm Hg) 2018-07-20 19:00:00 [facility] Systolic (mm Hg) 2018-07-20 19:00:00 [facility] Heart Rate 2018-07-20 19:00:00 [facility] Weight 2018-06-10 18:00:00 [facility] Height 2018-06-10 18:00:00 [facility] Respitory Rate 2018-06-10 18:00:00 [facility] Diastolic (mm Hg) 2018-06-10 18:00:00 [facility] Systolic (mm Hg) 2018-06-10 18:00:00 [facility] Heart Rate 2018-06-10 18:00:00 [facility] Weight 2018-04-06 19:00:00 [facility] Height 2018-04-06 19:00:00 [facility] Respitory Rate 2018-04-06 19:00:00 [facility] Diastolic (mm Hg) 2018-04-06 19:00:00 [facility] Systolic (mm Hg) 2018-04-06 19:00:00 [facility] Heart Rate 2018-04-06 19:00:00 [facility] Weight 2018-01-16 17:00:00 [facility] Height 2018-01-16 17:00:00 [facility] Respitory Rate 2018-01-16 17:00:00 [facility] Diastolic (mm Hg) 2018-01-16 17:00:00 [facility] Systolic (mm Hg) 2018-01-16 17:00:00 [facility] Heart Rate 2018-01-16 17:00:00 [facility] Weight 2018-01-05 18:00:00 [facility] Height 2018-01-05 18:00:00 [facility] Respitory Rate 2018-01-05 18:00:00 [facility] Diastolic (mm Hg) 2018-01-05 18:00:00 [facility] Systolic (mm Hg) 2018-01-05 18:00:00 [facility] Heart Rate 2018-01-05 18:00:00 [facility] Weight 2017-12-08 17:00:00 [facility] Height 2017-12-08 17:00:00 [facility] Respitory Rate 2017-12-08 17:00:00 [facility] Diastolic (mm Hg) 2017-12-08 17:00:00 [facility] Systolic (mm Hg) 2017-12-08 17:00:00 [facility] Heart Rate 2017-12-08 17:00:00 [facility] Heart Rate 2017-09-17 18:20:00 [facility] Height 2017-09-17 18:20:00 [facility] Respitory Rate 2017-09-17 18:20:00 [facility] Diastolic (mm Hg) 2017-09-17 18:20:00 [facility] Systolic (mm Hg) 2017-09-17 18:20:00 [facility] Weight 2017-07-16 18:00:00 [facility] Height 2017-07-16 18:00:00 [facility] Respitory Rate 2017-07-16 18:00:00 [facility] Diastolic (mm Hg) 2017-07-16 18:00:00 [facility] Systolic (mm Hg) 2017-07-16 18:00:00 [facility] Heart Rate 2017-07-16 18:00:00 [facility] Weight 2017-06-18 18:40:00 [facility] Height 2017-06-18 18:40:00 [facility] Respitory Rate 2017-06-18 18:40:00 [facility] Diastolic (mm Hg) 2017-06-18 18:40:00 [facility] Systolic (mm Hg) 2017-06-18 18:40:00 [facility] Heart Rate 2017-06-18 18:40:00 [facility] Weight 2017-04-09 19:00:00 [facility] Height 2017-04-09 19:00:00 [facility] Respitory Rate 2017-04-09 19:00:00 [facility] Diastolic (mm Hg) 2017-04-09 19:00:00 [facility] Systolic (mm Hg) 2017-04-09 19:00:00 [facility] Heart Rate 2017-04-09 19:00:00 [facility] Weight 2017-03-12 18:00:00 [facility] Height 2017-03-12 18:00:00 [facility] Respitory Rate 2017-03-12 18:00:00 [facility] Diastolic (mm Hg) 2017-03-12 18:00:00 [facility] Systolic (mm Hg) 2017-03-12 18:00:00 [facility] Heart Rate 2017-03-12 18:00:00 [facility] Height 2017-01-15 18:00:00 [facility] Weight 2017-01-15 18:00:00 [facility] Respitory Rate 2017-01-15 18:00:00 [facility] Diastolic (mm Hg) 2017-01-15 18:00:00 [facility] Systolic (mm Hg) 2017-01-15 18:00:00 [facility] Heart Rate 2017-01-15 18:00:00 [facility] Height 2016-12-16 18:00:00 [facility] Weight 2016-12-16 18:00:00 [facility] Respitory Rate 2016-12-16 18:00:00 [facility] Diastolic (mm Hg) 2016-12-16 18:00:00 [facility] Systolic (mm Hg) 2016-12-16 18:00:00 [facility] Heart Rate 2016-12-16 18:00:00 [facility] Height 2016-11-18 18:20:00 [facility] Weight 2016-11-18 18:20:00 [facility] Respitory Rate 2016-11-18 18:20:00 [facility] Diastolic (mm Hg) 2016-11-18 18:20:00 [facility] Systolic (mm Hg) 2016-11-18 18:20:00 [facility] Heart Rate 2016-11-18 18:20:00 [facility] Height 2016-10-28 18:20:00 [facility] Weight 2016-10-28 18:20:00 [facility] Respitory Rate 2016-10-28 18:20:00 [facility] Diastolic (mm Hg) 2016-10-28 18:20:00 [facility] Systolic (mm Hg) 2016-10-28 18:20:00 [facility] Heart Rate 2016-10-28 18:20:00 [facility] Height 2016-10-09 18:00:00 [facility] Weight 2016-10-09 18:00:00 [facility] Respitory Rate 2016-10-09 18:00:00 [facility] Diastolic (mm Hg) 2016-10-09 18:00:00 [facility] Systolic (mm Hg) 2016-10-09 18:00:00 [facility] Heart Rate 2016-10-09 18:00:00 [facility] Height 2016-09-30 19:00:00 [facility] Weight 2016-09-30 19:00:00 [facility] Respitory Rate 2016-09-30 19:00:00 [facility] Diastolic (mm Hg) 2016-09-30 19:00:00 [facility] Systolic (mm Hg) 2016-09-30 19:00:00 [facility] Heart Rate 2016-09-30 19:00:00 [facility] Height 2016-09-02 18:40:00 [facility] Weight 2016-09-02 18:40:00 [facility] Respitory Rate 2016-09-02 18:40:00 [facility] Diastolic (mm Hg) 2016-09-02 18:40:00 [facility] Systolic (mm Hg) 2016-09-02 18:40:00 [facility] Heart Rate 2016-09-02 18:40:00 [facility] Height 2016-08-12 19:20:00 [facility] Weight 2016-08-12 19:20:00 [facility] Respitory Rate 2016-08-12 19:20:00 [facility] Diastolic (mm Hg) 2016-08-12 19:20:00 [facility] Systolic (mm Hg) 2016-08-12 19:20:00 [facility] Heart Rate 2016-08-12 19:20:00 [facility] Height 2016-06-24 19:20:00 [facility] Weight 2016-06-24 19:20:00 [facility] Respitory Rate 2016-06-24 19:20:00 [facility] Diastolic (mm Hg) 2016-06-24 19:20:00 [facility] Systolic (mm Hg) 2016-06-24 19:20:00 [facility] Heart Rate 2016-06-24 19:20:00 [facility] Height 2016-05-27 19:40:00 [facility] Weight 2016-05-27 19:40:00 [facility] Respitory Rate 2016-05-27 19:40:00 [facility] Diastolic (mm Hg) 2016-05-27 19:40:00 [facility] Systolic (mm Hg) 2016-05-27 19:40:00 [facility] Heart Rate 2016-05-27 19:40:00 [facility] Height 2016-04-29 19:00:00 [facility] Weight 2016-04-29 19:00:00 [facility] Respitory Rate 2016-04-29 19:00:00 [facility] Diastolic (mm Hg) 2016-04-29 19:00:00 [facility] Systolic (mm Hg) 2016-04-29 19:00:00 [facility] Heart Rate 2016-04-29 19:00:00 [facility] Height 2016-04-24 19:00:00 [facility] Weight 2016-04-24 19:00:00 [facility] Respitory Rate 2016-04-24 19:00:00 [facility] Diastolic (mm Hg) 2016-04-24 19:00:00 [facility] Systolic (mm Hg) 2016-04-24 19:00:00 [facility] Heart Rate 2016-04-24 19:00:00 [facility] Procedures Procedure Date / Time Performed Performing Clinician [facility] Computed tomography, lower extremity; without contrast material 2019-07-04 00:00:00 MALCOLM HAN [facility] Computed tomography of brain without radiopaque contrast 202 00:00:00 BLAIR MUNIZ [facility] Computed tomography of brain without radiopaque contrast 202 00:00:00 [place] [facility] Computed tomography of cervical spine without contrast 06-28 [facility]00[facility] 2019-06-28 00:00:00 ABILIO HERMAN [facility] Computed tomography of brain without radiopaque contrast 201 02-17-05 00:00:00 JEWELS MCDONALD [facility] Computed tomography of brain without radiopaque contrast 201 02-18-04 00:00:00 KENDALL DAWSON [facility] Computed tomography angiography of abdomen and pelvis without then withcontrast 2019-01-04 00:00:00 OSWALD GARCIA [facility] Computed tomography of brain without radiopaque contrast 201 02-13-05 00:00:00 ENRIQUE MAMADOU Kim [facility] X-ray of chest, single view 2018-12-11 00:00:00 RAJEEVSHEAMAMADOU [facility] X-ray of chest, two views 2018-10-11 00:00:00 KENDALL DAWSON CH, I [facility] Encounters Start Date/Time End Date/Time Encounter Type Admission Type [facility] Care Department Encounter ID Source 2019-07-03 17:15:00 2019-07-04 17:50:00 Discharged Inpatient (obs) 1 COLIN ROSAS [facility] [id number] [facility] 2019-06-28 15:37:00 2019-06-30 15:15:00 Discharged Inpatient (obs) 1 ABILIO DE LA CRUZ [facility] [id number] [facility] 2019-04-12 08:17:00 2019-04-14 15:42:00 Discharged Inpatient (obs) 1 COLIN ROSAS [facility] [id number] [facility] 2019-01-04 17:05:00 2019-01-06 08:28:00 Discharged Inpatient (obs) 1 COLIN ROSAS [facility] [id number] [facility] 2018-12-11 19:52:00 2018-12-13 10:33:00 Discharged Inpatient (obs) 1 RAJEEVMAMADOU VALDIVIA [facility] [id number] [facility] 2018-12-04 18:50:00 2018-12-04 22:40:00 Departed Emergency Room 1 ALICIA CLIFTON [facility] [id number] [facility] 2018-11-11 15:25:00 2018-11-11 15:25:00 [facility] [id number] eClinicalWorks 2018-10-11 19:30:00 2018-10-12 00:19:00 Departed Emergency Room 1 KENDALL LIU [facility] [id number] [facility] 2018-08-26 13:00:00 2018-08-26 13:00:00 [facility] [id number] eClinicalWorks 2018-08-06 15:50:00 2018-08-06 15:50:00 [facility] [id number] eClinicalWorks 2018-07-27 11:42:00 2018-07-27 11:42:00 [facility] [id number] eClinicalWorks 2018-07-21 11:19:00 2018-07-21 11:19:00 [facility] [id number] eClinicalWorks 2018-07-20 13:00:00 2018-07-20 13:00:00 [facility] [id number] eClinicalWorks 2018-07-13 13:33:00 2018-07-13 13:33:00 [facility] [id number] eClinicalWorks 2018-06-12 12:54:00 2018-06-12 12:54:00 [facility] [id number] eClinicalWorks 2018-06-10 12:00:00 2018-06-10 12:00:00 [facility] [id number] eClinicalWorks 2018-05-15 09:35:00 2018-05-15 09:35:00 [facility] [id number] eClinicalWorks 2018-04-06 13:00:00 2018-04-06 13:00:00 [facility] [id number] eClinicalWorks 2018-03-30 12:05:00 2018-03-30 12:05:00 [facility] [id number] eClinicalWorks 2018-01-27 12:51:00 2018-01-27 12:51:00 [facility] [id number] eClinicalWorks 2018-01-16 11:00:00 2018-01-16 11:00:00 [facility] [id number] eClinicalWorks 2018-01-05 13:00:00 2018-01-05 13:00:00 [facility] [id number] eClinicalWorks 2017-12-29 09:38:00 2017-12-29 09:38:00 [facility] [id number] eClinicalWorks 2017-12-08 12:00:00 2017-12-08 12:00:00 [facility] [id number] eClinicalWorks 2017-10-24 12:33:00 2017-10-24 12:33:00 [facility] [id number] eClinicalWorks 2017-10-10 12:47:00 2017-10-10 12:47:00 [facility] [id number] eClinicalWorks 2017-09-17 13:20:00 2017-09-17 13:20:00 [facility] [id number] eClinicalWorks 2017-08-29 14:30:00 2017-08-29 14:30:00 [facility] [id number] eClinicalWorks 2017-08-06 11:06:00 2017-08-06 11:06:00 [facility] [id number] eClinicalWorks 2017-08-04 09:41:00 2017-08-04 09:41:00 [facility] [id number] eClinicalWorks 2017-08-01 11:24:00 2017-08-01 11:24:00 [facility] [id number] eClinicalWorks 2017-07-16 12:00:00 2017-07-16 12:00:00 [facility] [id number] eClinicalWorks 2017-07-02 09:24:00 2017-07-02 09:24:00 [facility] [id number] eClinicalWorks 2017-06-18 12:40:00 2017-06-18 12:40:00 [facility] [id number] eClinicalWorks 2017-05-26 14:04:00 2017-05-26 14:04:00 [facility] [id number] eClinicalWorks 2017-05-22 09:01:00 2017-05-22 09:01:00 [facility] [id number] eClinicalWorks 2017-04-28 10:34:00 2017-04-28 10:34:00 [facility] [id number] eClinicalWorks 2017-04-17 14:06:00 2017-04-17 14:06:00 [facility] [id number] eClinicalWorks 2017-04-11 09:39:00 2017-04-11 09:39:00 [facility] [id number] eClinicalWorks 2017-04-09 13:00:00 2017-04-09 13:00:00 [facility] [id number] eClinicalWorks 2017-03-12 13:00:00 2017-03-12 13:00:00 [facility] [id number] eClinicalWorks 2017-02-21 12:43:00 2017-02-21 12:43:00 [facility] [id number] eClinicalWorks 2017-02-06 13:35:00 2017-02-06 13:35:00 [facility] [id number] eClini calWorks 2017-01-27 14:20:00 2017-01-27 14:20:00 [facility] [id number] eClini calWorks 2017-01-15 13:00:00 2017-01-15 13:00:00 [facility] [id number] eClinicalWorks 2017-01-07 11:25:00 2017-01-07 11:25:00 [facility] [id number] eClini calWorks 2016-12-24 13:51:00 2016-12-24 13:51:00 [facility] [id number] Artur Ahumada 2016-12-16 13:00:00 2016-12-16 13:00:00 [facility] [id number] Artur Ahumada 2016-11-18 13:20:00 2016-11-18 13:20:00 [facility] [id number] Artur Ahumada 2016-11-06 13:51:00 2016-11-06 13:51:00 [facility] [id number] Artur Ahumada 2016-10-28 13:20:00 2016-10-28 13:20:00 [facility] [id number] Artur Ahumada 2016-10-09 13:00:00 2016-10-09 13:00:00 [facility] [id number] Artur Ahumada 2016-09-30 14:00:00 2016-09-30 14:00:00 [facility] [id number] Artur Ahumada 2016-09-02 13:40:00 2016-09-02 13:40:00 [facility] [id number] Artur Ahumada 2016-08-12 13:20:00 2016-08-12 13:20:00 [facility] [id number] Artur Ahumada 2016-07-15 17:04:00 2016-07-15 17:04:00 [facility] [id number] Artur Ahumada 2016-06-24 13:20:00 2016-06-24 13:20:00 [facility] [id number] Artur Ahumada 2016-05-27 13:40:00 2016-05-27 13:40:00 [facility] [id number] Artur Ahumada 2016-04-29 13:00:00 2016-04-29 13:00:00 [facility] [id number] [facility] 2016-04-24 13:00:00 2016-04-24 13:00:00 Outpatient [facility] [id number] [facility] Results Test Description Test Time Test Comments Results Result Comments Source CHEST SINGLE (PORTABLE) 2020-01-06 14:34:00 [place] [address] Patient Name: ÁNGELA WASHINGTON MR #: [id number] : 1935 Age/Sex: 84/F Req #: [id number] Adm Physician: COLIN ROSAS MD Ordered by: KENDALL DAWSON DO Report #: [id number] Location: [facility] Room/Bed: [place] [address] Procedure: [id number] DX/CHEST SINGLE (PORTABLE) Exam Date: 01/06/20 Exam [...] DAWSON DO CT BRAIN WO 2020-01-06 14:11:00 [facility] [address] [place] [address] Patient Name: ÁNGELA WASHINGTON MR #: [id number] : 1935 Age/Sex: 84/F Req #: [id number] Adm Physician: COLIN ROSAS MD Ordered by: KENDALL DAWSON DO Report #: [id number] Location: [facility] Room/Bed: [place] [address] Procedure: [id number] CT/CT BRAIN WO Exam Date: 01/06/20 Exam [...] DO CT KNEE RIGHT WO 2019-07-04 15:34:00 [place] [address] Patient Name: ÁNGELA WASHINGTON MR #: [id number] : 1935 Age/Sex: 83/F Req #: [id number] Adm Physician: COLIN ROSAS MD Ordered by: MALCOLM HAN MD Report #: [id number] Location: [facility]SURG Room/Bed: [facility] Procedure: [id number] CT/CT KNEE RIGHT WO Exam Date: 07/04/19 [...] Test Item Bedside Glucose (test code = 29992-3) 218 70-120 H Meter ID: [id number] [facility] 2019-07-04 09:57:00 [place] [address] Patient Name: ÁNGELA WASHINGTON MR #: [id number] : 1935 Age/Sex: 83/F Req #: [id number] Adm Physician: COLIN ROSAS MD Ordered by: Abimael De La O NP Report #: [id number] Location: [facility]SUR[facility] Room/Bed: [facility] Procedure: [id number] DX/LO WER LEG RIGHT Exam Date: 07/04/19 [...] MD 7 Transcribed By: MALIA on 07/04/19957 BIOLOGICAL TECHNICAL OFFICER Y TO: ABIMAEL DE LA O ARMATURE CONNECTOR Creatine Kinase KS7827-11-39 07:22:00* Test Item Value Reference Range Interpretation Comments Creatine Kinase MB (test code = 78641-3) 1.00 0-5.0 [facility]rop[facility] Z0426-02-78 07:22:00* Test Item Value Reference Range Interpretation Comments Troponin I (test code = XRM7708) 0.002 0-0.300 [facility]Creatine Kdngxr9166-34-01 07:12:00* Test Item Value Reference Range Interpretation Comments Creatine Kinase (test code = 2157-6) 49 29-168 [facility] Krkaq6709-63-33 06:34:00* Test Item Value Reference Range Interpretation Comments Sodium Level (test code = 2951-2) 140 136-145 [facility]Potassium Mbmtp2976-05-52 06:34:00* Test Item Value Reference Range Interpretation Comments Potassium Level (test code = 2823-3) 3.9 3.5-5.1 [facility] HospitalChloride Jlwfz5857-71-51 06:34:00* Test Item Value Reference Range Interpretation Comments Chloride Level (test code = 2075-0) 106 98-107 [facility] HospitalCarbon Dioxide Efgmo5821-61-52 06:34:00* Test Item Value Reference Range Interpretation Comments Carbon Dioxide Level (test code = 2028-9) 24 22-29 [facility] HospitalAnion Kge4513-78-55 06:34:00* Test Item Value Reference Range Interpretation Comments Anion Gap (test code = 51679-1) 13.9 8-16 [facility] HospitalBlood Urea Djqlrmgd6337-23-44 06:34:00* Test Item Value Reference Range Interpretation Comments Blood Urea Nitrogen (test code = 3094-0) 15 7- [facility] HospitalCreatinine2020-01-26 06:34:00* Test Item Value Reference Range Interpretation Comments Creatinine (test code = 2160-0) 0.81 0.57-1.11 [facility] HospitalBUN/Creatinine Wijvs2910-09-46 06:34:00* Test Item Value Reference Range Interpretation Comments BUN/Creatinine Ratio (test code = 3097-3) 19 6- [facility] HospitalEstimat Glomerular Filtration Rate 2019-07-04 06:34:00* Test Item Value Reference Range Interpretation Comments Estimat Glomerular Filtration Rate (test code = 593206224) > 60 >60 Ranges were taken from the National Kidney Disease Education Program and the [facility] [employer] literature.Reference ranges:60 or greater: Kacjsa58-31 ( for 3 consecutive months): Chronic kidney disease 15 or less: Kidney failureFormerly [facility] HospitalGlucose Uorly9228-38-92 06:34:00* Test Item Value Reference Range Interpretation Comments Glucose Level (test code = SOS0333) 122 74-118 H [facility] HospitalCalcium Pecoe7371-98-92 06:34:00* Test Item Value Reference Range Interpretation Comments Calcium Level (test code = 67334-0) 8.7 8.4-10.2 [facility] HospitalTotal Mqloddltz2846-51-87 06:34:00* Test Item Value Reference Range Interpretation Comments Total Bilirubin (test code = 1975-2) 0.5 0.2-1.2 [facility] HospitalAspartate Amino Transf (AST/SGOT) 2019-07-04 06:34:00* Test Item Value Reference Range Interpretation Comments Aspartate Amino Transf (AST/SGOT) (test code = Aspartate Amino Transf (AST/SGOT)) 15 5-34 [facility] HospitalAlanine Aminotransferase (ALT/SGPT) 2019-07-04 06:34:00* Test Item Value Reference Range Interpretation Comments Alanine Aminotransferase (ALT/SGPT) (test code = 1742-6) 14 0-55 [facility] HospitalTotal Omaceaq8119-97-77 06:34:00* Test Item Value Reference Range Interpretation Comments Total Protein (test code = 2885-2) 5.7 6.5-8.1 L [facility] HospitalAlbumin2020-01-26 06:34:00* Test Item Value Reference Range Interpretation Comments Albumin (test code = 1751-7) 2.9 3.5-5.0 L [facility] HospitalGlobulin2020-01-26 06:34:00* Test Item Value Reference Range Interpretation Comments Globulin (test code = 02493-9) 2.8 2.3-3.5 [facility] HospitalAlbumin/Globulin Hewml9237-66-26 06:34:00 * Test Item Value Reference Range Interpretation Comments Albumin/Globulin Ratio (test code = 1759-0) 1.0 0.8-2.0 [facility] HospitalAlkaline Snlcqvydroy9396-56-15 06:34:00* Test Item Value Reference Range Interpretation Comments Alkaline Phosphatase (test code = 6768-6) 71 40-150 [facility] HospitalAmmonia2020-01-26 06:09:00* Test Item Value Reference Range Interpretation Comments Ammonia (test code = 38260-9) 56 31-123 [facility] HospitalWhite Blood Llxhv3733-48-31 06:02:00* Test Item Value Reference Range Interpretation Comments White Blood Count (test code = 6690-2) 5.16 4.8-10.8 [facility] HospitalRed Blood Dnxsa2149-95-09 06:02:00* Test Item Value Reference Range Interpretation Comments Red Blood Count (test code = 789-8) 4.03 3.6-5.1 [facility] HospitalHemoglobin2020-01-26 06:02:00* Test Item Value Reference Range Interpretation Comments Hemoglobin (test code = 54968-5) 11.4 12.0-16.0 L [facility] HospitalHematocrit2020-01-26 06:02:00* Test Item Value Reference Range Interpretation Comments Hematocrit (test code = 4544-3) 35.6 34.2-44.1 [facility] HospitalMean Corpuscular Wrnwft3997-03-41 06:02:00* Test Item Value Reference Range Interpretation Comments Mean Corpuscular Volume (test code = 787-2) 88.3 81-99 [facility] HospitalMean Corpuscular Seaprwnliy2258-20-08 06:02:00* Test Item Value Reference Range Interpretation Comments Mean Corpuscular Hemoglobin (test code = 785-6) 28.3 28-32 [facility] HospitalMean Corpuscular Hemoglobin Concent 2019-07-04 06:02:00* Test Item Value Reference Range Interpretation Comments Mean Corpuscular Hemoglobin Concent (test code = 786-4) 32.0 31-35 [facility] HospitalRed Cell Distribution Ugwji1193-02-77 06:02:00* Test Item Value Reference Range Interpretation Comments Red Cell Distribution Width (test code = 47535-9) 15.9 11.7 -14.4 H [facility] HospitalPlatelet Uoyvu9450-40-45 06:02:00* Test Item Value Reference Range Interpretation Comments Platelet Count (test code = 777-3) 197 140-360 [facility] HospitalNeutrophils (%) (Auto)2019-07-04 06:02:00 * Test Item Value Reference Range Interpretation Comments Neutrophils (%) (Auto) (test code = 20142-6) 47.9 38.7-80.0 [facility] HospitalLymphocytes (%) (Auto)2019-07-04 06:02:00 * Test Item Value Reference Range Interpretation Comments Lymphocytes (%) (Auto) (test code = 736-9) 34.5 18.0-39.1 [facility] HospitalMonocytes (%) (Auto)2019-07-04 06:02:00* Test Item Value Reference Range Interpretation Comments Monocytes (%) (Auto) (test code = 5905-5) 11.8 4.4-11.3 H [facility] HospitalEosinophils (%) (Auto)2019-07-04 06:02:00 * Test Item Value Reference Range Interpretation Comments Eosinophils (%) (Auto) (test code = 713-8) 4.8 0.0-6.0 [facility] HospitalBasophils (%) (Auto)2019-07-04 06:02:00* Test Item Value Reference Range Interpretation Comments Basophils (%) (Auto) (test code = 706-2) 0.8 0.0-1.0 [facility] HospitalIM GRANULOCYTES %2019-07-04 06:02:00* Test Item Value Reference Range Interpretation Comments IM GRANULOCYTES % (test code = IM GRANULOCYTES %) 0.2 0.0- 1.0 [facility] HospitalNeutrophils # (Auto)2019-07-04 06:02:00* Test Item Value Reference Range Interpretation Comments Neutrophils # (Auto) (test code = 751-8) 2.5 2.1-6.9 [facility] HospitalLymphocytes # (Auto)2019-07-04 06:02:00* Test Item Value Reference Range Interpretation Comments Lymphocytes # (Auto) (test code = 52795-9) 1.8 1.0-3.2 [facility] HospitalMonocytes # (Auto)2019-07-04 06:02:00* Test Item Value Reference Range Interpretation Comments Monocytes # (Auto) (test code = 742-7) 0.6 0.2-0.8 [facility] HospitalEosinophils # (Auto)2019-07-04 06:02:00* Test Item Value Reference Range Interpretation Comments Eosinophils # (Auto) (test code = 711-2) 0.3 0.0-0.4 [facility] HospitalBasophils # (Auto)2019-07-04 06:02:00* Test Item Value Reference Range Interpretation Comments Basophils # (Auto) (test code = 704-7) 0.0 0.0-0.1 [facility] HospitalAbsolute Immature Granulocyte (auto 2019-07-04 06:02:00* Test Item Value Reference Range Interpretation Comments Absolute Immature Granulocyte (auto (hsaq t code = Absolute Immature Granulocyte (auto) 0.01 0-0.1 [facility] HospitalThyroid Stimulating Hormone (TSH) 2019-07-03 17:34:00* Test Item Value Reference Range Interpretation Comments Thyroid Stimulating Hormone (TSH) (test code = 75133-4) 2.566 0.350-4.940 [facility] HospitalB-Type Natriuretic Bakrqys9277-32-99 17:18:00* Test Item Value Reference Range Interpretation Comments B-Type Natriuretic Peptide (test code = 40785-2) 69.5 0-100 [facility] HospitalUrine Pirxh7471-50-34 17:06:00* Test Item Value Reference Range Interpretation Comments Urine Color (test code = 5778-6) YELLOW YELLOW [facility] HospitalUrine Wmscxzs8015-65-11 17:06:00* Test Item Value Reference Range Interpretation Comments Urine Clarity (test code = 96709-3) CLEAR CLEAR [facility] HospitalUrine Specific Mutofqw4266-78-52 17:06:00 * Test Item Value Reference Range Interpretation Comments Urine Specific [place] (test code = 5811-5) 1.015 1.010-1.02 5 [facility] HospitalUrine fY2485-71-06 17:06:00* Test Item Value Reference Range Interpretation Comments Urine pH (test code = 74817-2) 6 5-7 [facility] HospitalUrine Leukocyte Nwkqheec5107-80-38 17:06:00* Test Item Value Reference Range Interpretation Comments Urine Leukocyte Esterase (test code = 5799-2) NEGATIVE NEGATIVE [facility] HospitalUrine Xfzrntv2974-77-27 17:06:00* Test Item Value Reference Range Interpretation Comments Urine Nitrite (test code = 52907-7) NEGATIVE NEGATIVE [facility] HospitalUrine Phbjudk7745-23-59 17:06:00* Test Item Value Reference Range Interpretation Comments Urine Protein (test code = 5804-0) NEGATIVE NEGATIVE [facility] HospitalUrine Glucose (UA)2019-07-03 17:06:00* Test Item Value Reference Range Interpretation Comments Urine Glucose (UA) (test code = 2349-9) NEGATIVE NEGATIVE [facility] HospitalUrine Vjpzctb2627-46-10 17:06:00* Test Item Value Reference Range Interpretation Comments Urine Ketones (test code = 38452-0) NEGATIVE NEGATIVE [facility] HospitalUrine Opiates Ekiubw3099-08-50 17:06:00* Test Item Value Reference Range Interpretation Comments Urine Opiates Screen (test code = 20615-2) NEGATIVE NEGATIVE ALL TESTS PERFORMED MANUALLY ON [employer] TOX/SEE TESTFormerly [facility] HospitalUrine Barbiturates Guwxrs3460-47-21 17:06:00* Test Item Value Reference Range Interpretation Comments Urine Barbiturates Screen (test code = 314388993) NEGATIVE NEGA TIVE [facility] HospitalUrine Phencyclidine Xmodlu3367-11-74 17:06:00* Test Item Value Reference Range Interpretation Comments Urine Phencyclidine Screen (test code = 25911-9) NEGATIVE NEGAT SNEHAL [facility] HospitalUrine Amphetamines Smkfcc8693-12-33 17:06:00* Test Item Value Reference Range Interpretation Comments Urine Amphetamines Screen (test code = 19697-4) NEGATIVE NEGATI VE [facility] HospitalUrine Methamphetamines Dmnrui8943-86-81 17:06:00* Test Item Value Reference Range Interpretation Comments Urine Methamphetamines Screen (test code = Urine Metha mphetamines Screen) NEGATIVE NEGATIVE [facility] HospitalUrine Benzodiazepines Wtlwpm1323-55-69 17:06:00* Test Item Value Reference Range Interpretation Comments Urine Benzodiazepines Screen (test code = 28776-6) NEGATIVE NEG ATIVE [facility] HospitalUrine Cocaine Crlqrb9251-21-44 17:06:00* Test Item Value Reference Range Interpretation Comments Urine Cocaine Screen (test code = 3398-5) NEGATIVE NEGATIVE [facility] HospitalUrine Cannabinoids Akfolh0716-86-07 17:06:00* Test Item Value Reference Range Interpretation Comments Urine Cannabinoids Screen (test code = 14053-8) NEGATIVE NEGATI VE THESE RESULTS ARE FOR MEDICAL TREATMENT ONLYTHIS REPORT CONTAINS UNCONFIR MED SCREENING RESULTS*POSITIVE RESULTS WILL BE CONFIRMED BY REFERENCE LAB UPON R EQUEST CUT-OFFDRUG CLASS CONCENTRATION ng/mLAmphetamines 1000Methamphetamines 1000Cocaine 300Opiate 300Phencyc lidine 25Cannabinoid 50Barbiturates 300Benzodiazepine 300Methadone 300[facility]stU[facility] Methadone Jyrozh0233-57-92 17:06:00* Test Item Value Reference Range Interpretation Comments Urine Methadone Screen (test code = 13489-0) NEGATIVE NEGATIVE THESE RESULTS ARE FOR MEDICAL TREATMENT ONLYTHIS REPORT CONTAINS UNCONFIR MED SCREENING RESULTS*POSITIVE RESULTS WILL BE CONFIRMED BY REFERENCE LAB UPON R EQUEST CUT-OFFDRUG CLASS CONCENTRATION ng/mLAmphetamines 1000Methamphetamines 1000Cocaine Metabolite 300Opiate 300Phencyc lidine 25Cannabinoid 50Barbiturates 300Benzodiazepine 300Methadone 300[facility] HospitalUrine Bdxedyefgamu9985-70-44 17:06:00* Test Item Value Reference Range Interpretation Comments Urine Urobilinogen (test code = 50320-9) 0.2 0.2-1 [facility] HospitalUrine Dttcfzorp1987-67-71 17:06:00* Test Item Value Reference Range Interpretation Comments Urine Bilirubin (test code = 1978-6) NEGATIVE NEGATIVE [facility] HospitalUrine Neyxc5045-65-27 17:06:00* Test Item Value Reference Range Interpretation Comments Urine Blood (test code = 06517-9) NEGATIVE NEGATIVE [facility] HospitalUrine BPE1806-53-13 17:06:00* Test Item Value Reference Range Interpretation Comments Urine WBC (test code = 5821-4) 0-5 0-5 [facility] HospitalUrine ARZ6860-78-52 17:06:00* Test Item Value Reference Range Interpretation Comments Urine RBC (test code = 09875-7) 0-5 0-5 [facility] HospitalUrine Mnrabzvm2361-82-35 17:06:00* Test Item Value Reference Range Interpretation Comments Urine Bacteria (test code = 73544-1) RARE NONE [facility] HospitalUrine Epithelial Kxooh4734-60-51 17:06:00 * Test Item Value Reference Range Interpretation Comments Urine Epithelial Cells (test code = 27134-5) FEW NONE [facility] HospitalProthrombin Kbye7087-98-51 17:04:00* Test Item Value Reference Range Interpretation Comments Prothrombin Time (test code = 5902-2) 15.7 11.9-14.5 H [facility] HospitalProthromb Time International Ratio 2019-07-03 17:04:00* Test Item Value Reference Range Interpretation Comments Prothromb Time International Ratio (test code = 6301-6) 1.19 Oral Anticoagulant Therapy INR Values:1. Low Intensity Therapy 1.5 - 2.02 . Moderate Intensity Therapy 2.0 - 3.03. High Intensity Therapy(1) 2.5 - 3. 54. High Intensity Therapy(2) 3.0 - 4.05. Panic Value INR > 5.0 [facility] HospitalActivated Partial Thromboplast Time 2019-07-03 17:04:00* Test Item Value Reference Range Interpretation Comments Activated Partial Thromboplast Time (test code = 18391-0) 32.6 23.8-35.5 [facility] HospitalCHEST SINGLE (PORTABLE)2019-07-03 14:51:00 [place] [address] Patient Name: NÁGELA WASHINGTON MR #: [id number] : 1935 Age/Sex: 83/F Req #: [id number] Adm Physician: Ordered by: BLAIR MUNIZ ARMATURE CONNECTOR Report #: [id number] Location: ER Room/Bed: Procedure: [id number] DX/CH EST SINGLE (PORTABLE) Exam Date: 07/03/19 [...] COPY TO: BLAIR MUNIZ NP CT BRAIN IC0233-98-13 14:46:00 [place] [address] Patient Name: ÁNGELA WASHINGTON MR #: [id number] : 1935 Age/Sex: 83/F Req #: [id number] Adm Physician: Ordered by: BLAIR MUNIZ ARMATURE CONNECTOR Report #: [id number] Location: ER Room/Bed: Procedure: [id number] CT/CT BRAIN WO Exam Date: 07/03/19 Exam [...] COPY TO: BLAIR MUNIZ NP Levetiracetam (Keppra) Rtomz2399-00-64 07:33:00* Test Item Value Reference Range Interpretation Comments Levetiracetam (Keppra) Level (test code = 72374-0) 26.8 10. 0-40.0 This test was developed and its performance characteristicsdetermined by [employer] . It has not been cleared orapproved by the Food and Drug Administration.Perform ed at: [address] [id number] Dir bry: Jerson Pollard MD, Phone: [phone] [facility] HospitalMagnesium Sngdn4592-55-58 14:36:00* Test Item Value Reference Range Interpretation Comments Magnesium Level (test code = 21281-4) 1.9 1.3-2.1 [facility] HospitalMagnesium Xeceb9349-86-16 14:36:00* Test Item Value Reference Range Interpretation Comments Magnesium Level (test code = 28453-6) 1.9 1.3-2.1 [facility] Texasodium Eahed2320-07-23 08:48:00* Test Item Value Reference Range Interpretation Comments Sodium Level (test code = 2951-2) 141 136-145 [facility] HospitalPotassium Gsirz5842-22-49 08:48:00* Test Item Value Reference Range Interpretation Comments Potassium Level (test code = 2823-3) 4.5 3.5-5.1 [facility] HospitalChloride Bvuyx5036-50-23 08:48:00* Test Item Value Reference Range Interpretation Comments Chloride Level (test code = 2075-0) 103 98-107 [facility] HospitalCarbon Dioxide Devoc3125-90-78 08:48:00* Test Item Value Reference Range Interpretation Comments Carbon Dioxide Level (test code = 2028-9) 29 22-29 [facility] HospitalAnion Drx8000-98-47 08:48:00* Test Item Value Reference Range Interpretation Comments Anion Gap (test code = 74704-8) 13.5 8-16 [facility] HospitalBlood Urea Vgdckgow6295-33-97 08:48:00* Test Item Value Reference Range Interpretation Comments Blood Urea Nitrogen (test code = 3094-0) 19 7-26 [facility] HospitalCreatinine2020-01-21 08:48:00* Test Item Value Reference Range Interpretation Comments Creatinine (test code = 2160-0) 1.00 0.57-1.11 [facility] HospitalBUN/Creatinine Pvohz8521-43-38 08:48:00* Test Item Value Reference Range Interpretation Comments BUN/Creatinine Ratio (test code = 3097-3) 19 6-25 [facility] HospitalEstimat Glomerular Filtration Rate 2019-06-29 08:48:00* Test Item Value Reference Range Interpretation Comments Estimat Glomerular Filtration Rate (test code = 232260255) 53 >60 L Ranges were taken from the National Kidney Disease Education Program and the [facility] literature.Reference ranges:60 or greater: Qwskvz05-94 ( for 3 consecutive months): Chronic kidney disease 15 or less: Kidney failureFormerly [facility] HospitalGlucose Dclxv7267-69-84 08:48:00* Test Item Value Reference Range Interpretation Comments Glucose Level (test code = WDD1655) 174 74-118 H [facility] HospitalCalcium Hcjzy7625-38-10 08:48:00* Test Item Value Reference Range Interpretation Comments Calcium Level (test code = 12425-3) 9.0 8.4-10.2 [facility] HospitalWhite Blood Irssp4168-62-53 08:28:00* Test Item Value Reference Range Interpretation Comments White Blood Count (test code = 6690-2) 6.05 4.8-10.8 [facility] HospitalRed Blood Mkiab9169-61-69 08:28:00* Test Item Value Reference Range Interpretation Comments Red Blood Count (test code = 789-8) 4.37 3.6-5.1 [facility] HospitalHemoglobin2020-01-21 08:28:00* Test Item Value Reference Range Interpretation Comments Hemoglobin (test code = 03937-3) 12.4 12.0-16.0 [facility] HospitalHematocrit2020-01-21 08:28:00* Test Item Value Reference Range Interpretation Comments Hematocrit (test code = 4544-3) 39.3 34.2-44.1 [facility] HospitalMean Corpuscular Lbzamy3692-13-03 08:28:00* Test Item Value Reference Range Interpretation Comments Mean Corpuscular Volume (test code = 787-2) 89.9 81-99 [facility] HospitalMean Corpuscular Rjwezbmfoz7214-44-17 08:28:00* Test Item Value Reference Range Interpretation Comments Mean Corpuscular Hemoglobin (test code = 785-6) 28.4 28-32 [facility] HospitalMean Corpuscular Hemoglobin Concent 2019-06-29 08:28:00* Test Item Value Reference Range Interpretation Comments Mean Corpuscular Hemoglobin Concent (test code = 786-4) 31.6 31-35 [facility] HospitalRed Cell Distribution Msyxv2522-75-70 08:28:00* Test Item Value Reference Range Interpretation Comments Red Cell Distribution Width (test code = 43041-8) 16.3 11.7 -14.4 H [facility] HospitalPlatelet Jywte4614-76-45 08:28:00* Test Item Value Reference Range Interpretation Comments Platelet Count (test code = 777-3) 199 140-360 [facility] HospitalNeutrophils (%) (Auto)2019-06-29 08:28:00 * Test Item Value Reference Range Interpretation Comments Neutrophils (%) (Auto) (test code = 04317-4) 57.7 38.7-80.0 [facility] HospitalLymphocytes (%) (Auto)2019-06-29 08:28:00 * Test Item Value Reference Range Interpretation Comments Lymphocytes (%) (Auto) (test code = 736-9) 28.3 18.0-39.1 [facility] HospitalMonocytes (%) (Auto)2019-06-29 08:28:00* Test Item Value Reference Range Interpretation Comments Monocytes (%) (Auto) (test code = 5905-5) 9.9 4.4-11.3 [facility] HospitalEosinophils (%) (Auto)2019-06-29 08:28:00 * Test Item Value Reference Range Interpretation Comments Eosinophils (%) (Auto) (test code = 713-8) 3.0 0.0-6.0 [facility] HospitalBasophils (%) (Auto)2019-06-29 08:28:00* Test Item Value Reference Range Interpretation Comments Basophils (%) (Auto) (test code = 706-2) 0.8 0.0-1.0 [facility] HospitalIM GRANULOCYTES %2019-06-29 08:28:00* Test Item Value Reference Range Interpretation Comments IM GRANULOCYTES % (test code = IM GRANULOCYTES %) 0.3 0.0- 1.0 [facility] HospitalNeutrophils # (Auto)2019-06-29 08:28:00* Test Item Value Reference Range Interpretation Comments Neutrophils # (Auto) (test code = 751-8) 3.5 2.1-6.9 [facility] HospitalLymphocytes # (Auto)2019-06-29 08:28:00* Test Item Value Reference Range Interpretation Comments Lymphocytes # (Auto) (test code = 94726-3) 1.7 1.0-3.2 [facility] HospitalMonocytes # (Auto)2019-06-29 08:28:00* Test Item Value Reference Range Interpretation Comments Monocytes # (Auto) (test code = 742-7) 0.6 0.2-0.8 [facility] HospitalEosinophils # (Auto)2019-06-29 08:28:00* Test Item Value Reference Range Interpretation Comments Eosinophils # (Auto) (test code = 711-2) 0.2 0.0-0.4 [facility] HospitalBasophils # (Auto)2019-06-29 08:28:00* Test Item Value Reference Range Interpretation Comments Basophils # (Auto) (test code = 704-7) 0.1 0.0-0.1 [facility] HospitalAbsolute Immature Granulocyte (auto 2019-06-29 08:28:00* Test Item Value Reference Range Interpretation Comments Absolute Immature Granulocyte (auto (shaq t code = Absolute Immature Granulocyte (auto) 0.02 0-0.1 [facility] HospitalUrine DAU1055-85-18 15:58:00* Test Item Value Reference Range Interpretation Comments Urine WBC (test code = 5821-4) NONE 0-5 [facility] HospitalUrine VXG0808-21-34 15:58:00* Test Item Value Reference Range Interpretation Comments Urine RBC (test code = 88284-5) NONE 0-5 [facility] HospitalUrine Sigbylsf3934-43-66 15:58:00* Test Item Value Reference Range Interpretation Comments Urine Bacteria (test code = 92195-7) NONE NONE [facility] HospitalUrine Epithelial Vtgxu2168-99-57 15:58:00 * Test Item Value Reference Range Interpretation Comments Urine Epithelial Cells (test code = 90955-1) NONE NONE [facility] HospitalUrine Scnlv5686-80-24 15:45:00* Test Item Value Reference Range Interpretation Comments Urine Color (test code = 5778-6) YELLOW YELLOW [facility] HospitalUrine Vxdrefe9688-64-44 15:45:00* Test Item Value Reference Range Interpretation Comments Urine Clarity (test code = 43620-1) CLEAR CLEAR [facility] Specific Fairxig0314-76-97 15:45:00 * Test Item Value Reference Range Interpretation Comments Urine Specific [place] (test code = 5811-5) 1.015 1.010-1.02 5 [facility] HospitalUrine pK8614-52-70 15:45:00* Test Item Value Reference Range Interpretation Comments Urine pH (test code = 87324-5) 6.5 5-7 [facility] HospitalUrine Leukocyte Udcqjovs6367-46-99 15:45:00* Test Item Value Reference Range Interpretation Comments Urine Leukocyte Esterase (test code = 5799-2) NEGATIVE NEGATIVE [facility] HospitalUrine Nkunbqu2912-48-12 15:45:00* Test Item Value Reference Range Interpretation Comments Urine Nitrite (test code = 24229-2) NEGATIVE NEGATIVE [facility] HospitalUrine Glnqccr6161-55-10 15:45:00* Test Item Value Reference Range Interpretation Comments Urine Protein (test code = 5804-0) NEGATIVE NEGATIVE [facility] HospitalUrine Glucose (UA)2019-06-28 15:45:00* Test Item Value Reference Range Interpretation Comments Urine Glucose (UA) (test code = 2349-9) NEGATIVE NEGATIVE [facility] HospitalUrine Nypxbbh7149-90-67 15:45:00* Test Item Value Reference Range Interpretation Comments Urine Ketones (test code = 40638-9) NEGATIVE NEGATIVE [facility] HospitalUrine Kewybwaeddii9777-58-70 15:45:00* Test Item Value Reference Range Interpretation Comments Urine Urobilinogen (test code = 92507-8) 0.2 0.2-1 [facility] HospitalUrine Kqfepoueg4954-28-80 15:45:00* Test Item Value Reference Range Interpretation Comments Urine Bilirubin (test code = 1978-6) NEGATIVE NEGATIVE [facility] HospitalUrine Ipatx2070-72-04 15:45:00* Test Item Value Reference Range Interpretation Comments Urine Blood (test code = 06247-9) NEGATIVE NEGATIVE [facility] HospitalCT ABDOMEN/PELVIS AN9249-37-96 14:41:00 [facility] [address] [place] [address] Patient Name: ÁNGELA WASHINGTON MR #: [id number] : 1935 Age/Sex: 83/F Req #: [id number] Adm Physician: Ordered by: ABILIO DE LA CRUZ MD Report #: [id number] Location: ER Room/Bed: Procedure: [id number] CT/CT ABDOMEN/PELVIS WO Exam Date: 06/28/19 Exam [...] 1447 COPY TO: ABILIO KIMBROUGH MD Total Lpdktavmr1014-02-70 14:28:00* Test Item Value Reference Range Interpretation Comments Total Bilirubin (test code = 1975-2) 0.4 0.2-1.2 [facility] HospitalAspartate Amino Transf (AST/SGOT) 2019-06-28 14:28:00* Test Item Value Reference Range Interpretation Comments Aspartate Amino Transf (AST/SGOT) (test code = Aspartate Amino Transf (AST/SGOT)) 18 5-34 [facility] HospitalAlanine Aminotransferase (ALT/SGPT) 2019-06-28 14:28:00* Test Item Value Reference Range Interpretation Comments Alanine Aminotransferase (ALT/SGPT) (test code = 1742-6) 20 0-55 [facility] HospitalTotal Kufknup6817-49-26 14:28:00* Test Item Value Reference Range Interpretation Comments Total Protein (test code = 2885-2) 7.1 6.5-8.1 [facility] HospitalAlbumin2020-01-20 14:28:00* Test Item Value Reference Range Interpretation Comments Albumin (test code = 1751-7) 3.5 3.5-5.0 [facility] HospitalGlobulin2020-01-20 14:28:00* Test Item Value Reference Range Interpretation Comments Globulin (test code = 36674-2) 3.6 2.3-3.5 H [facility] HospitalAlbumin/Globulin Waqpu1475-27-15 14:28:00 * Test Item Value Reference Range Interpretation Comments Albumin/Globulin Ratio (test code = 1759-0) 1.0 0.8-2.0 [facility] HospitalAlkaline Dsfbhmlcsfr7220-45-71 14:28:00* Test Item Value Reference Range Interpretation Comments Alkaline Phosphatase (test code = 6768-6) 85 40-150 [facility] HospitalAmylase Llyir0072-91-77 14:28:00* Test Item Value Reference Range Interpretation Comments Amylase Level (test code = 1798-8) 38 25-125 [facility] HospitalLipase2020-01-20 14:28:00* Test Item Value Reference Range Interpretation Comments Lipase (test code = 3040-3) 48 8-78 [facility] HospitalAmylase Ydfjl4900-41-04 14:28:00* Test Item Value Reference Range Interpretation Comments Amylase Level (test code = 1798-8) 38 25-125 [facility] HospitalLipase2020-01-20 14:28:00* Test Item Value Reference Range Interpretation Comments Lipase (test code = 3040-3) 48 8-78 [facility] HospitalCT CERVICAL SPINE HS8526-89-59 14:21:00 [facility] [address] [place] [address] Patient Name: ÁNGELA WASHINGTON MR #: [id number] : 1935 Age/Sex: 83/F Req #: [id number] Adm Physician: Ordered by: ABILIO DE LA CRUZ MD Report #: [id number] Location: ER Room/Bed: Procedure: [id number] CT/CT CERVICAL SPINE WO Exam Date: 06/28/19 [...] infarct has not significantly changed. 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 [...] CRUZ MD CT BRAIN WO 2019-06-28 14:21:00 [place] [address] Patient Name: ÁNGELA WASHINGTON MR #: [id number] : 1935 Age/Sex: 83/F Req #: [id number] Adm Physician: Ordered by: ABILIO DE LA CRUZ MD Report #: [id number] Location: ER Room/Bed: Procedure: [id number] CT/CT BRAIN WO Exam Date: 06/28/19 Exam [...] 2:29 PM Dictated By: DUSTIN SERRA MD [facility] Signed By: DUSTIN SERRA MD on 06/28/19 142 Transcribed By: MALIA on 0 1429 COPY TO: ABILIO DE LA CRUZ MD Bedside Fgasmyo6749-54-70 12:01:00* Test Item Value Reference Range Interpretation Comments Bedside Glucose (test code = 27536-1) 175 70-120 H Meter ID: [id number] [facility] HospitalBedside Glucose 2019-04-14 12:01:00* Test Item Value Reference Range Interpretation Comments Bedside Glucose (test code = 41624-5) 175 70-120 H Meter ID: [id number] [facility] HospitalThyroid Stimulating Hormone (TSH)2019-04-13 08:14:00* Test Item Value Reference Range Interpretation Comments Thyroid Stimulating Hormone (TSH) (test code = 89662-0) 3.063 0.350-4.940 [facility] HospitalThyroid Stimulating Hormone (TSH) 2019-04-13 08:14:00* Test Item Value Reference Range Interpretation Comments Thyroid Stimulating Hormone (TSH) (test code = 25438-1) 3.063 0.350-4.940 [facility] HospitalTriglycerides Gbzpn4255-69-41 07:47:00* Test Item Value Reference Range Interpretation Comments Triglycerides Level (test code = 2571-8) 97 0-149 [facility] HospitalCholesterol Ysymx8847-31-18 07:47:00* Test Item Value Reference Range Interpretation Comments Cholesterol Level (test code = 2093-3) 94 0-199 Less than 200 mg/dL Low Zunz102 - 239 mg/dL Borderline Lgod475 m g/dl and greater High Risk [facility] HospitalLDL Zdvcxxcgmrt0523-28-44 07:47:00* Test Item Value Reference Range Interpretation Comments LDL Cholesterol (test code = 2089-1) 49 60-130 L [facility] HospitalHDL Srgmqwilrfh3753-85-43 07:47:00* Test Item Value Reference Range Interpretation Comments HDL Cholesterol (test code = 2085-9) 26 40-60 L [facility] HospitalCholesterol/HDL Zsljr0634-95-25 07:47:00 * Test Item Value Reference Range Interpretation Comments Cholesterol/HDL Ratio (test code = 9830-1) 3.6 3.0-3.6 [facility] HospitalLipase2019-11-05 07:47:00* Test Item Value Reference Range Interpretation Comments Lipase (test code = 3040-3) 32 8-78 [facility] HospitalTriglycerides Wpais5750-15-50 07:47:00* Test Item Value Reference Range Interpretation Comments Triglycerides Level (test code = 2571-8) 97 0-149 [facility] HospitalCholesterol Pejpw5254-75-97 07:47:00* Test Item Value Reference Range Interpretation Comments Cholesterol Level (test code = 2093-3) 94 0-199 Less than 200 mg/dL Low Ujgb386 - 239 mg/dL Borderline Ykzh194 m g/dl and greater High Risk [facility] HospitalLDL Unmnzgpcsgu9423-82-87 07:47:00* Test Item Value Reference Range Interpretation Comments LDL Cholesterol (test code = 2089-1) 49 60-130 L [facility] Apddyzhryhv8235-73-82 07:47:00* Test Item Value Reference Range Interpretation Comments HDL Cholesterol (test code = 2085-9) 26 40-60 L [facility] HospitalCholesterol/HDL Claai5637-77-16 07:47:00 * Test Item Value Reference Range Interpretation Comments Cholesterol/HDL Ratio (test code = 9830-1) 3.6 3.0-3.6 [facility] HospitalTriglycerides Utcax1327-44-37 07:47:00* Test Item Value Reference Range Interpretation Comments Triglycerides Level (test code = 2571-8) 97 0-149 [facility] HospitalCholesterol Uwqor7836-83-48 07:47:00* Test Item Value Reference Range Interpretation Comments Cholesterol Level (test code = 2093-3) 94 0-199 Less than 200 mg/dL Low Zfsd821 - 239 mg/dL Borderline Docw897 m g/dl and greater High Risk [facility] HospitalLDL Vfwbftdppxo7533-46-36 07:47:00* Test Item Value Reference Range Interpretation Comments LDL Cholesterol (test code = 2089-1) 49 60-130 L [facility] HospitalHDL Frmrtcpwdkz2326-31-81 07:47:00* Test Item Value Reference Range Interpretation Comments HDL Cholesterol (test code = 2085-9) 26 40-60 L [facility] HospitalCholesterol/HDL Dluvd4550-28-13 07:47:00 * Test Item Value Reference Range Interpretation Comments Cholesterol/HDL Ratio (test code = 9830-1) 3.6 3.0-3.6 [facility] Texasodium Litue3352-21-49 07:08:00* Test Item Value Reference Range Interpretation Comments Sodium Level (test code = 2951-2) 141 136-145 [facility] HospitalPotassium Mmdme3233-54-82 07:08:00* Test Item Value Reference Range Interpretation Comments Potassium Level (test code = 2823-3) 4.0 3.5-5.1 [facility] HospitalChloride Kcdjx7982-20-94 07:08:00* Test Item Value Reference Range Interpretation Comments Chloride Level (test code = 2075-0) 108 98-107 H [facility] HospitalCarbon Dioxide Eycxn2423-23-46 07:08:00* Test Item Value Reference Range Interpretation Comments Carbon Dioxide Level (test code = 2028-9) 25 22-29 [facility] HospitalAnion Mgg1836-95-48 07:08:00* Test Item Value Reference Range Interpretation Comments Anion Gap (test code = 98011-0) 12.0 8-16 [facility] HospitalBlood Urea Vbrapeby4428-39-06 07:08:00* Test Item Value Reference Range Interpretation Comments Blood Urea Nitrogen (test code = 3094-0) 9 7-26 [facility] HospitalCreatinine2019-11-05 07:08:00* Test Item Value Reference Range Interpretation Comments Creatinine (test code = 2160-0) 0.80 0.57-1.11 [facility] HospitalBUN/Creatinine Dsjdt3825-16-82 07:08:00* Test Item Value Reference Range Interpretation Comments BUN/Creatinine Ratio (test code = 3097-3) 11 6-25 [facility] HospitalEstimat Glomerular Filtration Rate 2019-04-13 07:08:00* Test Item Value Reference Range Interpretation Comments Estimat Glomerular Filtration Rate (test code = 395900292) > 60 >60 Ranges were taken from the National Kidney Disease Education Program and the Pending sale to [facility] literature.Reference ranges:60 or greater: Kcmooq64-22 ( for 3 consecutive months): Chronic kidney disease 15 or less: Kidney failureFormerly [facility] HospitalGlucose Iswdy7968-81-24 07:08:00* Test Item Value Reference Range Interpretation Comments Glucose Level (test code = JNZ0190) 85 74-118 [facility] HospitalCalcium Mngtz9157-42-03 07:08:00* Test Item Value Reference Range Interpretation Comments Calcium Level (test code = 11622-1) 8.6 8.4-10.2 [facility] HospitalHemoglobin A1c Oxrbbiq5890-76-90 07:07:00 * Test Item Value Reference Range Interpretation Comments Hemoglobin A1c Percent (test code = Hemoglobin A1c Percent) 6.3 4.0-7.0 [facility] HospitalHemoglobin A1c Kkqpmvt8855-20-41 07:07:00 * Test Item Value Reference Range Interpretation Comments Hemoglobin A1c Percent (test code = Hemoglobin A1c Percent) 6.3 4.0-7.0 [facility] HospitalHemoglobin A1c Qishpgs4244-67-53 07:07:00 * Test Item Value Reference Range Interpretation Comments Hemoglobin A1c Percent (test code = Hemoglobin A1c Percent) 6.3 4.0-7.0 [facility] HospitalWhite Blood Dcwqx1014-92-31 06:39:00* Test Item Value Reference Range Interpretation Comments White Blood Count (test code = 6690-2) 5.48 4.8-10.8 [facility] HospitalRed Blood Qldjm9395-36-81 06:39:00* Test Item Value Reference Range Interpretation Comments Red Blood Count (test code = 789-8) 4.13 3.6-5.1 [facility] HospitalHemoglobin2019-11-05 06:39:00* Test Item Value Reference Range Interpretation Comments Hemoglobin (test code = 19279-4) 10.8 12.0-16.0 L [facility] HospitalHematocrit2019-[facility]-05 06:39:00* Test Item Value Reference Range Interpretation Comments Hematocrit (test code = 4544-3) 35.4 34.2-44.1 [facility]Mean Corpuscular Cbefwr0924-79-32 06:39:00* Test Item Value Reference Range Interpretation Comments Mean Corpuscular Volume (test code = 787-2) 85.7 81-99 [facility]Mean Corpuscular Whvrgnzsou6693-22-91 06:39:00* Test Item Value Reference Range Interpretation Comments Mean Corpuscular Hemoglobin (test code = 785-6) 26.2 28-32 L [facility]Mean Corpuscular Hemoglobin Concent 2019-04-13 06:39:00* Test Item Value Reference Range Interpretation Comments Mean Corpuscular Hemoglobin Concent (test code = 786-4) 30.5 31-35 L [facility] HospitalRed Cell Distribution Lkayv0803-67-05 06:39:00* Test Item Value Reference Range Interpretation Comments Red Cell Distribution Width (test code = 05206-7) 18.9 11.7 -14.4 H [facility] HospitalPlatelet Hwmzq3439-08-29 06:39:00* Test Item Value Reference Range Interpretation Comments Platelet Count (test code = 777-3) 202 140-360 [facility] HospitalNeutrophils (%) (Auto)2019-04-13 06:39:00 * Test Item Value Reference Range Interpretation Comments Neutrophils (%) (Auto) (test code = 92204-9) 54.5 38.7-80.0 [facility] HospitalLymphocytes (%) (Auto)2019-04-13 06:39:00 * Test Item Value Reference Range Interpretation Comments Lymphocytes (%) (Auto) (test code = 736-9) 27.7 18.0-39.1 [facility] HospitalMonocytes (%) (Auto)2019-04-13 06:39:00* Test Item Value Reference Range Interpretation Comments Monocytes (%) (Auto) (test code = 5905-5) 12.4 4.4-11.3 H [facility] HospitalEosinophils (%) (Auto)2019-04-13 06:39:00 * Test Item Value Reference Range Interpretation Comments Eosinophils (%) (Auto) (test code = 713-8) 4.7 0.0-6.0 [facility] HospitalBasophils (%) (Auto)2019-04-13 06:39:00* Test Item Value Reference Range Interpretation Comments Basophils (%) (Auto) (test code = 706-2) 0.5 0.0-1.0 [facility] HospitalIM GRANULOCYTES %2019-04-13 06:39:00* Test Item Value Reference Range Interpretation Comments IM GRANULOCYTES % (test code = IM GRANULOCYTES %) 0.2 0.0- 1.0 [facility] HospitalNeutrophils # (Auto)2019-04-13 06:39:00* Test Item Value Reference Range Interpretation Comments Neutrophils # (Auto) (test code = 751-8) 3.0 2.1-6.9 [facility] HospitalLymphocytes # (Auto)2019-04-13 06:39:00* Test Item Value Reference Range Interpretation Comments Lymphocytes # (Auto) (test code = 18570-5) 1.5 1.0-3.2 [facility] HospitalMonocytes # (Auto)2019-04-13 06:39:00* Test Item Value Reference Range Interpretation Comments Monocytes # (Auto) (test code = 742-7) 0.7 0.2-0.8 [facility] HospitalEosinophils # (Auto)2019-04-13 06:39:00* Test Item Value Reference Range Interpretation Comments Eosinophils # (Auto) (test code = 711-2) 0.3 0.0-0.4 [facility] HospitalBasophils # (Auto)2019-04-13 06:39:00* Test Item Value Reference Range Interpretation Comments Basophils # (Auto) (test code = 704-7) 0.0 0.0-0.1 [facility] HospitalAbsolute Immature Granulocyte (auto 2019-04-13 06:39:00* Test Item Value Reference Range Interpretation Comments Absolute Immature Granulocyte (auto (shaq t code = Absolute Immature Granulocyte (auto) 0.01 0-0.1 [facility] HospitalCT BRAIN UF0707-62-87 05:58:00 [place] [address] Patient Name: ÁNGELA WASHINGTON MR #: [id number] : 1935 Age/Sex: 83/F Req #: [id number] Adm Physician: COLIN ROSAS MD Ordered by: JEWELS MCDONALD M.D. Report #: [id number] Location: [facility] Room/Bed: [facility] Procedure: [id number] CT/CT BRAIN WO Exam Date: 04/13/19 Exam [...] JEWELS MCDONALD MD CHEST SINGLE (PORTABLE)2019-04-12 08:57:00 [place] [address] Patient Name: ÁNGELA WASHINGTON MR #: [id number] : 1935 Age/Sex: 83/F Req #: [id number] Adm Physician: COLIN ROSAS MD Ordered by: KENDALL DAWSON DO Report #: [id number] Location: [facility] Room/Bed: [place] [address] Procedure: [id number] DX/ CHEST SINGLE (PORTABLE) Exam Date: 04/12/19 [...] COPY TO: LIZET DAWSON DO CT BRAIN VT4563-04-39 08:40:00 [place] [address] Patient Name: ÁNGELA WASHINGTON MR #: [id number] : 1935 Age/Sex: 83/F Req #: [id number] Adm Physician: COLIN ROSAS MD Ordered by: KENDALL DAWSON DO Report #: [id number] Location: [facility] Room/Bed: [place] [address] Procedure: [id number] CT/ CT BRAIN WO Exam Date: 04/12/19 [...] 0845 COPY TO: KENDALL DAWSON DO Urine YNH2853-14-42 08:15:00* Test Item Value Reference Range Interpretation Comments Urine WBC (test code = 5821-4) 11-20 0-5 H [facility] HospitalUrine FHD7324-46-69 08:15:00* Test Item Value Reference Range Interpretation Comments Urine RBC (test code = 72142-4) 0-5 0-5 [facility] HospitalUrine Aldehzcp0350-17-61 08:15:00* Test Item Value Reference Range Interpretation Comments Urine Bacteria (test code = 58244-4) MODERATE NONE H [facility] HospitalUrine Epithelial Bmtji8309-97-53 08:15:00 * Test Item Value Reference Range Interpretation Comments Urine Epithelial Cells (test code = 25062-0) FEW NONE [facility] HospitalUrine Amorphous Awwysfvd1401-92-79 08:15:00* Test Item Value Reference Range Interpretation Comments Urine Amorphous Sediment (test code = 8246-1) FEW FEW [facility] HospitalUrine Amorphous Mmtafoqc6870-26-09 08:15:00* Test Item Value Reference Range Interpretation Comments Urine Amorphous Sediment (test code = 8246-1) FEW FEW [facility] HospitalUrine Amorphous Imjzlolv8981-28-17 08:15:00* Test Item Value Reference Range Interpretation Comments Urine Amorphous Sediment (test code = 8246-1) FEW FEW [facility] HospitalUrine Oejsa1637-58-90 08:06:00* Test Item Value Reference Range Interpretation Comments Urine Color (test code = 5778-6) YELLOW YELLOW [facility] HospitalUrine Emnsqoy6923-16-10 08:06:00* Test Item Value Reference Range Interpretation Comments Urine Clarity (test code = 95779-3) CLEAR CLEAR [facility] HospitalUrine Specific Gphmdup2163-01-62 08:06:00 * Test Item Value Reference Range Interpretation Comments Urine Specific [place] (test code = 5811-5) 1.010 1.010-1.02 5 [facility] HospitalUrine sK7865-82-60 08:06:00* Test Item Value Reference Range Interpretation Comments Urine pH (test code = 82265-9) 6 5-7 [facility] HospitalUrine Leukocyte Alfboqal9462-64-28 08:06:00* Test Item Value Reference Range Interpretation Comments Urine Leukocyte Esterase (test code = 87023-7) NEGATIVE NEGATIV E [facility] HospitalUrine Pupuslu9008-65-50 08:06:00* Test Item Value Reference Range Interpretation Comments Urine Nitrite (test code = 84852-9) NEGATIVE NEGATIVE [facility] HospitalUrine Pasedvb8113-32-30 08:06:00* Test Item Value Reference Range Interpretation Comments Urine Protein (test code = 17251-5) NEGATIVE NEGATIVE [facility] HospitalUrine Glucose (UA)2019-04-12 08:06:00* Test Item Value Reference Range Interpretation Comments Urine Glucose (UA) (test code = 48435-6) NEGATIVE NEGATIVE [facility] HospitalUrine Kxdbnln5126-68-88 08:06:00* Test Item Value Reference Range Interpretation Comments Urine Ketones (test code = 81039-3) NEGATIVE NEGATIVE [facility] HospitalUrine Zrjspaozswwi5715-54-24 08:06:00* Test Item Value Reference Range Interpretation Comments Urine Urobilinogen (test code = 57956-7) 0.2 0.2-1 [facility] HospitalUrine Kngpexldc6199-08-43 08:06:00* Test Item Value Reference Range Interpretation Comments Urine Bilirubin (test code = 1977-8) NEGATIVE NEGATIVE [facility] HospitalUrine Ajcql2721-46-23 08:06:00* Test Item Value Reference Range Interpretation Comments Urine Blood (test code = 76093-6) NEGATIVE NEGATIVE [facility] HospitalCreatine Kinase VF6152-92-90 08:05:00* Test Item Value Reference Range Interpretation Comments Creatine Kinase MB (test code = 96680-5) 1.90 0-5.0 [facility] HospitalTroponin N6247-79-73 08:05:00* Test Item Value Reference Range Interpretation Comments Troponin I (test code = FKK3546) < 0.001 0-0.300 [facility] HospitalCreatine Kinase KH1707-28-63 08:05:00* Test Item Value Reference Range Interpretation Comments Creatine Kinase MB (test code = 48273-8) 1.90 0-5.0 [facility] HospitalTroponin Z1644-51-96 08:05:00* Test Item Value Reference Range Interpretation Comments Troponin I (test code = NDH4853) < 0.001 0-0.300 [facility] HospitalTotal Dtfjeogbr6851-45-00 07:43:00* Test Item Value Reference Range Interpretation Comments Total Bilirubin (test code = 1975-2) 0.4 0.2-1.2 [facility] HospitalAspartate Amino Transf (AST/SGOT) 2019-04-12 07:43:00* Test Item Value Reference Range Interpretation Comments Aspartate Amino Transf (AST/SGOT) (test code = Aspartate Amino Transf (AST/SGOT)) 19 5-34 [facility] HospitalAlanine Aminotransferase (ALT/SGPT) 2019-04-12 07:43:00* Test Item Value Reference Range Interpretation Comments Alanine Aminotransferase (ALT/SGPT) (test code = 1742-6) 17 0-55 [facility] HospitalTotal Xabdami5819-09-44 07:43:00* Test Item Value Reference Range Interpretation Comments Total Protein (test code = 2885-2) 6.7 6.5-8.1 [facility] HospitalAlbumin2019-11-04 07:43:00* Test Item Value Reference Range Interpretation Comments Albumin (test code = 1751-7) 3.4 3.5-5.0 L [facility] HospitalGlobulin2019-11-04 07:43:00* Test Item Value Reference Range Interpretation Comments Globulin (test code = 56635-1) 3.3 2.3-3.5 [facility] HospitalAlbumin/Globulin Cfpns6936-11-57 07:43:00 * Test Item Value Reference Range Interpretation Comments Albumin/Globulin Ratio (test code = 1759-0) 1.0 0.8-2.0 [facility] HospitalAlkaline Zaxeodqdbvk2088-06-02 07:43:00* Test Item Value Reference Range Interpretation Comments Alkaline Phosphatase (test code = 6768-6) 93 40-150 [facility] HospitalCreatine Gettbw9286-57-28 07:43:00* Test Item Value Reference Range Interpretation Comments Creatine Kinase (test code = 2157-6) 140 29-168 [facility] HospitalCreatine Rldbbn6449-72-08 07:43:00* Test Item Value Reference Range Interpretation Comments Creatine Kinase (test code = 2157-6) 140 29-168 [facility] HospitalB-Type Natriuretic Knmxljr1686-17-51 04:43:00* Test Item Value Reference Range Interpretation Comments B-Type Natriuretic Peptide (test code = 26615-2) 178.7 0-100 H [facility] HospitalB-Type Natriuretic Aenlgos9354-49-69 04:43:00* Test Item Value Reference Range Interpretation Comments B-Type Natriuretic Peptide (test code = 17696-1) 178.7 0-100 H [facility] HospitalB-Type Natriuretic Jitkekt4374-92-35 04:43:00* Test Item Value Reference Range Interpretation Comments B-Type Natriuretic Peptide (test code = 80588-1) 178.7 0-100 H [facility]odium Gpizt3211-43-57 03:51:00* Test Item Value Reference Range Interpretation Comments Sodium Level (test code = 2951-2) 132 136-145 L [facility] HospitalPotassium Xaplu6940-46-36 03:51:00* Test Item Value Reference Range Interpretation Comments Potassium Level (test code = 2823-3) 4.1 3.5-5.1 [facility] HospitalChloride Jxero4251-46-89 03:51:00* Test Item Value Reference Range Interpretation Comments Chloride Level (test code = 2075-0) 98 98-107 [facility] HospitalCarbon Dioxide Sjmaf1122-17-70 03:51:00* Test Item Value Reference Range Interpretation Comments Carbon Dioxide Level (test code = 2028-9) 24 22-29 [facility] HospitalAnion Knx1579-83-50 03:51:00* Test Item Value Reference Range Interpretation Comments Anion Gap (test code = 23043-4) 14.1 8-16 [facility] HospitalBlood Urea Hlrtzhig8603-78-22 03:51:00* Test Item Value Reference Range Interpretation Comments Blood Urea Nitrogen (test code = 3094-0) 23 7-26 [facility] HospitalCreatinine2019-07-31 03:51:00* Test Item Value Reference Range Interpretation Comments Creatinine (test code = 2160-0) 0.92 0.57-1.11 [facility] HospitalBUN/Creatinine Wlaxl6016-68-89 03:51:00* Test Item Value Reference Range Interpretation Comments BUN/Creatinine Ratio (test code = 3097-3) 25 6-25 [facility] HospitalEstimat Glomerular Filtration Rate 2019-01-06 03:51:00* Test Item Value Reference Range Interpretation Comments Estimat Glomerular Filtration Rate (test code = 365744599) 58 >60 L Ranges were taken from the National Kidney Disease Education Program and the Pending sale to [facility] literature.Reference ranges:60 or greater: Bbmgxb88-33 ( for 3 consecutive months): Chronic kidney disease 15 or less: Kidney failureFormerly [facility] HospitalGlucose Eouip2537-57-16 03:51:00* Test Item Value Reference Range Interpretation Comments Glucose Level (test code = QMF6745) 121 74-118 H [facility] HospitalCalcium Asmkz5117-44-78 03:51:00* Test Item Value Reference Range Interpretation Comments Calcium Level (test code = 75127-6) 8.5 8.4-10.2 [facility] HospitalMagnesium Uvlwt7769-53-70 03:51:00* Test Item Value Reference Range Interpretation Comments Magnesium Level (test code = 28657-1) 2.0 1.3-2.1 [facility] HospitalMagnesium Aiqha6609-79-39 03:51:00* Test Item Value Reference Range Interpretation Comments Magnesium Level (test code = 47582-0) 2.0 1.3-2.1 [facility] HospitalWhite Blood Dflwm0597-69-32 03:34:00* Test Item Value Reference Range Interpretation Comments White Blood Count (test code = 6690-2) 7.34 4.8-10.8 [facility] HospitalRed Blood Jsvdk6912-52-67 03:34:00* Test Item Value Reference Range Interpretation Comments Red Blood Count (test code = 789-8) 2.99 3.6-5.1 L [facility] HospitalHemoglobin2019-07-31 03:34:00* Test Item Value Reference Range Interpretation Comments Hemoglobin (test code = 64133-7) 8.9 12.0-16.0 L [facility] HospitalHematocrit2019-07-31 03:34:00* Test Item Value Reference Range Interpretation Comments Hematocrit (test code = 4544-3) 26.4 34.2-44.1 L [facility] HospitalMean Corpuscular Ycoqbq4002-41-92 03:34:00* Test Item Value Reference Range Interpretation Comments Mean Corpuscular Volume (test code = 787-2) 88.3 81-99 [facility] HospitalMean Corpuscular Rqtnzresye6837-71-36 03:34:00* Test Item Value Reference Range Interpretation Comments Mean Corpuscular Hemoglobin (test code = 785-6) 29.8 28-32 [facility] HospitalMean Corpuscular Hemoglobin Concent 2019-01-06 03:34:00* Test Item Value Reference Range Interpretation Comments Mean Corpuscular Hemoglobin Concent (test code = 786-4) 33.7 31-35 [facility] HospitalRed Cell Distribution Utkgb5600-78-05 03:34:00* Test Item Value Reference Range Interpretation Comments Red Cell Distribution Width (test code = 40215-7) 13.2 11.7 -14.4 [facility] HospitalPlatelet Trnyv8851-53-66 03:34:00* Test Item Value Reference Range Interpretation Comments Platelet Count (test code = 777-3) 229 140-360 [facility] HospitalNeutrophils (%) (Auto)2019-01-06 03:34:00 * Test Item Value Reference Range Interpretation Comments Neutrophils (%) (Auto) (test code = 64745-1) 47.4 38.7-80.0 [facility] HospitalLymphocytes (%) (Auto)2019-01-06 03:34:00 * Test Item Value Reference Range Interpretation Comments Lymphocytes (%) (Auto) (test code = 736-9) 33.4 18.0-39.1 [facility] HospitalMonocytes (%) (Auto)2019-01-06 03:34:00* Test Item Value Reference Range Interpretation Comments Monocytes (%) (Auto) (test code = 5905-5) 12.1 4.4-11.3 H [facility] HospitalEosinophils (%) (Auto)2019-01-06 03:34:00 * Test Item Value Reference Range Interpretation Comments Eosinophils (%) (Auto) (test code = 713-8) 5.9 0.0-6.0 [facility] HospitalBasophils (%) (Auto)2019-01-06 03:34:00* Test Item Value Reference Range Interpretation Comments Basophils (%) (Auto) (test code = 706-2) 0.5 0.0-1.0 [facility] HospitalIM GRANULOCYTES %2019-01-06 03:34:00* Test Item Value Reference Range Interpretation Comments IM GRANULOCYTES % (test code = IM GRANULOCYTES %) 0.7 0.0- 1.0 [facility] HospitalNeutrophils # (Auto)2019-01-06 03:34:00* Test Item Value Reference Range Interpretation Comments Neutrophils # (Auto) (test code = 751-8) 3.5 2.1-6.9 [facility] HospitalLymphocytes # (Auto)2019-01-06 03:34:00* Test Item Value Reference Range Interpretation Comments Lymphocytes # (Auto) (test code = 60028-7) 2.5 1.0-3.2 [facility] HospitalMonocytes # (Auto)2019-01-06 03:34:00* Test Item Value Reference Range Interpretation Comments Monocytes # (Auto) (test code = 742-7) 0.9 0.2-0.8 H [facility] HospitalEosinophils # (Auto)2019-01-06 03:34:00* Test Item Value Reference Range Interpretation Comments Eosinophils # (Auto) (test code = 711-2) 0.4 0.0-0.4 [facility] HospitalBasophils # (Auto)2019-01-06 03:34:00* Test Item Value Reference Range Interpretation Comments Basophils # (Auto) (test code = 704-7) 0.0 0.0-0.1 [facility] HospitalAbsolute Immature Granulocyte (auto 2019-01-06 03:34:00* Test Item Value Reference Range Interpretation Comments Absolute Immature Granulocyte (auto (shaq t code = Absolute Immature Granulocyte (auto) 0.05 0-0.1 [facility]Bed[facility] Vptcsqc3778-29-08 19:57:00* Test Item Value Reference Range Interpretation Comments Bedside Glucose (test code = 88174-2) 154 70-120 H Meter ID: [id number] [facility] Hill[facility]stCTA ABD/PELVIS 2019-01-04 17:32:00 [facility] [address] [place] [address] Patient Name: ÁNGELA WASHINGTON MR #: [id number] : 1935 Age/Sex: 83/F Req #: [id number] Adm Physician: COLIN ROSAS MD Ordered by: OSWALD GARCIA MD Report #: [id number] Location: [facility] Room/Bed: [place] [address] Procedure: [id number] CT/CTA ABD/PELVIS Exam Date: 01/04/19 Exam Time: [...] 17 50 Transcribed By: MALIA on 01/04/19 2870 COPY TO: OSWALD GARCIA MD Total Wojwrafcf5464-73-39 15:53:00* Test Item Value Reference Range Interpretation Comments Total Bilirubin (test code = 1975-2) 0.3 0.2-1.2 [facility] HospitalAspartate Amino Transf (AST/SGOT) 2019-01-04 15:53:00* Test Item Value Reference Range Interpretation Comments Aspartate Amino Transf (AST/SGOT) (test code = Aspartate Amino Transf (AST/SGOT)) 14 5-34 [facility] HospitalAlanine Aminotransferase (ALT/SGPT) 2019-01-04 15:53:00* Test Item Value Reference Range Interpretation Comments Alanine Aminotransferase (ALT/SGPT) (test code = 1742-6) 16 0-55 [facility] HospitalTotal Ncefbur1993-80-65 15:53:00* Test Item Value Reference Range Interpretation Comments Total Protein (test code = 2885-2) 6.9 6.5-8.1 [facility] HospitalAlbumin2019-07-29 15:53:00* Test Item Value Reference Range Interpretation Comments Albumin (test code = 1751-7) 3.4 3.5-5.0 L [facility] HospitalGlobulin2019-07-29 15:53:00* Test Item Value Reference Range Interpretation Comments Globulin (test code = 58939-7) 3.5 2.3-3.5 [facility] HospitalAlbumin/Globulin Hzcqw2747-26-73 15:53:00 * Test Item Value Reference Range Interpretation Comments Albumin/Globulin Ratio (test code = 1759-0) 1.0 0.8-2.0 [facility] HospitalAlkaline Jykfuyvhzfz0388-39-18 15:53:00* Test Item Value Reference Range Interpretation Comments Alkaline Phosphatase (test code = 6768-6) 73 40-150 [facility] HospitalUrine CFV7465-20-88 15:51:00* Test Item Value Reference Range Interpretation Comments Urine WBC (test code = 5821-4) NONE 0-5 [facility] HospitalUrine YUA6316-71-89 15:51:00* Test Item Value Reference Range Interpretation Comments Urine RBC (test code = 70630-1) NONE 0-5 [facility] HospitalUrine Wckckycu9178-74-46 15:51:00* Test Item Value Reference Range Interpretation Comments Urine Bacteria (test code = 13168-6) NONE NONE [facility] HospitalUrine Epithelial Xlyij8964-87-65 15:51:00 * Test Item Value Reference Range Interpretation Comments Urine Epithelial Cells (test code = 20315-2) MODERATE NONE [facility] HospitalUrine Icggl3839-42-27 15:38:00* Test Item Value Reference Range Interpretation Comments Urine Color (test code = 5778-6) YELLOW YELLOW [facility] HospitalUrine Fbyiqnj7983-68-47 15:38:00* Test Item Value Reference Range Interpretation Comments Urine Clarity (test code = 69365-6) CLEAR CLEAR [facility] HospitalUrine Specific Jcacfwz3573-62-27 15:38:00 * Test Item Value Reference Range Interpretation Comments Urine Specific [place] (test code = 5811-5) 1.010 1.010-1.02 5 [facility] HospitalUrine aD0297-99-63 15:38:00* Test Item Value Reference Range Interpretation Comments Urine pH (test code = 48480-5) 6 5-7 [facility] HospitalUrine Leukocyte Ehepkuib3642-36-15 15:38:00* Test Item Value Reference Range Interpretation Comments Urine Leukocyte Esterase (test code = 41521-4) NEGATIVE NEGATIV E [facility] HospitalUrine Anjldln9310-44-96 15:38:00* Test Item Value Reference Range Interpretation Comments Urine Nitrite (test code = 29582-3) NEGATIVE NEGATIVE [facility] HospitalUrine Xcfeiii5895-03-59 15:38:00* Test Item Value Reference Range Interpretation Comments Urine Protein (test code = 50888-0) NEGATIVE NEGATIVE [facility] HospitalUrine Glucose (UA)2019-01-04 15:38:00* Test Item Value Reference Range Interpretation Comments Urine Glucose (UA) (test code = 78185-0) NEGATIVE NEGATIVE [facility] HospitalUrine Cqieylv2004-37-96 15:38:00* Test Item Value Reference Range Interpretation Comments Urine Ketones (test code = 41300-3) NEGATIVE NEGATIVE [facility] HospitalUrine Jdxtatftbadv3085-10-23 15:38:00* Test Item Value Reference Range Interpretation Comments Urine Urobilinogen (test code = 45829-3) 0.2 0.2-1 [facility] HospitalUrine Zxeevkibl7585-13-42 15:38:00* Test Item Value Reference Range Interpretation Comments Urine Bilirubin (test code = 1977-8) NEGATIVE NEGATIVE [facility] HospitalUrine Jaatc5025-73-23 15:38:00* Test Item Value Reference Range Interpretation Comments Urine Blood (test code = 29987-3) NEGATIVE NEGATIVE [facility] HospitalBedside Atvkeuf6892-08-80 07:39:00* Test Item Value Reference Range Interpretation Comments Bedside Glucose (test code = 89173-6) 184 70-120 H Meter ID: [id number] [facility]odium Level 2018-12-13 05:46:00* Test Item Value Reference Range Interpretation Comments Sodium Level (test code = 2951-2) 135 136-145 L [facility] HospitalPotassium Lwgoq1847-05-58 05:46:00* Test Item Value Reference Range Interpretation Comments Potassium Level (test code = 2823-3) 4.0 3.5-5.1 [facility] HospitalChloride Dzryj9805-53-28 05:46:00* Test Item Value Reference Range Interpretation Comments Chloride Level (test code = 2075-0) 103 98-107 [facility] HospitalCarbon Dioxide Lmisn4656-79-73 05:46:00* Test Item Value Reference Range Interpretation Comments Carbon Dioxide Level (test code = 2028-9) 24 22-29 [facility] HospitalAnion Vzo6668-68-62 05:46:00* Test Item Value Reference Range Interpretation Comments Anion Gap (test code = 02371-6) 12.0 8-16 [facility]Blood Urea Whfmcgnb7434-21-15 05:46:00* Test Item Value Reference Range Interpretation Comments Blood Urea Nitrogen (test code = 3094-0) 19 7-26 [facility] HospitalCreatinine2019-07-07 05:46:00* Test Item Value Reference Range Interpretation Comments Creatinine (test code = 2160-0) 0.85 0.57-1.11 [facility]BUN/Creatinine Gfrjf9573-95-11 05:46:00* Test Item Value Reference Range Interpretation Comments BUN/Creatinine Ratio (test code = 3097-3) 22 6-25 [facility] HospitalEstimat Glomerular Filtration Rate 2018-12-13 05:46:00* Test Item Value Reference Range Interpretation Comments Estimat Glomerular Filtration Rate (test code = 794833017) > 60 >60 Ranges were taken from the National Kidney Disease Education Program and the [facility] Kidney Foundation literature.Reference ranges:60 or greater: Hhzxwz52-19 ( for 3 consecutive months): Chronic kidney disease 15 or less: Kidney failureFormerly [facility] HospitalGlucose Sszyk1327-42-77 05:46:00* Test Item Value Reference Range Interpretation Comments Glucose Level (test code = RJA5394) 215 74-118 H [facility] HospitalCalcium Zgday1801-09-34 05:46:00* Test Item Value Reference Range Interpretation Comments Calcium Level (test code = 78410-0) 8.4 8.4-10.2 [facility] HospitalWhite Blood Tlcnl4134-59-96 05:12:00* Test Item Value Reference Range Interpretation Comments White Blood Count (test code = 6690-2) 9.57 4.8-10.8 [facility] HospitalRed Blood Biarg0700-89-79 05:12:00* Test Item Value Reference Range Interpretation Comments Red Blood Count (test code = 789-8) 4.08 3.6-5.1 [facility] HospitalHemoglobin2019-07-07 05:12:00* Test Item Value Reference Range Interpretation Comments Hemoglobin (test code = 22816-1) 11.9 12.0-16.0 L [facility] HospitalHematocrit2019-07-07 05:12:00* Test Item Value Reference Range Interpretation Comments Hematocrit (test code = 4544-3) 36.6 34.2-44.1 [facility] HospitalMean Corpuscular Dxvvmh5797-81-49 05:12:00* Test Item Value Reference Range Interpretation Comments Mean Corpuscular Volume (test code = 787-2) 89.7 81-99 [facility] HospitalMean Corpuscular Tdkaolrodu1972-08-90 05:12:00* Test Item Value Reference Range Interpretation Comments Mean Corpuscular Hemoglobin (test code = 785-6) 29.2 28-32 [facility] HospitalMean Corpuscular Hemoglobin Concent 2018-12-13 05:12:00* Test Item Value Reference Range Interpretation Comments Mean Corpuscular Hemoglobin Concent (test code = 786-4) 32.5 31-35 [facility] HospitalRed Cell Distribution Wurtq0394-13-01 05:12:00* Test Item Value Reference Range Interpretation Comments Red Cell Distribution Width (test code = 37963-7) 13.7 11.7 -14.4 [facility] HospitalPlatelet Kvhcn2118-94-86 05:12:00* Test Item Value Reference Range Interpretation Comments Platelet Count (test code = 777-3) 227 140-360 [facility] HospitalNeutrophils (%) (Auto)2018-12-13 05:12:00 * Test Item Value Reference Range Interpretation Comments Neutrophils (%) (Auto) (test code = 74254-0) 69.1 38.7-80.0 [facility] HospitalLymphocytes (%) (Auto)2018-12-13 05:12:00 * Test Item Value Reference Range Interpretation Comments Lymphocytes (%) (Auto) (test code = 736-9) 18.7 18.0-39.1 [facility] HospitalMonocytes (%) (Auto)2018-12-13 05:12:00* Test Item Value Reference Range Interpretation Comments Monocytes (%) (Auto) (test code = 5905-5) 10.0 4.4-11.3 [facility] HospitalEosinophils (%) (Auto)2018-12-13 05:12:00 * Test Item Value Reference Range Interpretation Comments Eosinophils (%) (Auto) (test code = 713-8) 1.0 0.0-6.0 [facility] HospitalBasophils (%) (Auto)2018-12-13 05:12:00* Test Item Value Reference Range Interpretation Comments Basophils (%) (Auto) (test code = 706-2) 0.3 0.0-1.0 [facility] HospitalIM GRANULOCYTES %2018-12-13 05:12:00* Test Item Value Reference Range Interpretation Comments IM GRANULOCYTES % (test code = IM GRANULOCYTES %) 0.9 0.0- 1.0 [facility] HospitalNeutrophils # (Auto)2018-12-13 05:12:00* Test Item Value Reference Range Interpretation Comments Neutrophils # (Auto) (test code = 751-8) 6.6 2.1-6.9 [facility] HospitalLymphocytes # (Auto)2018-12-13 05:12:00* Test Item Value Reference Range Interpretation Comments Lymphocytes # (Auto) (test code = 66678-2) 1.8 1.0-3.2 [facility] HospitalMonocytes # (Auto)2018-12-13 05:12:00* Test Item Value Reference Range Interpretation Comments Monocytes # (Auto) (test code = 742-7) 1.0 0.2-0.8 H [facility] HospitalEosinophils # (Auto)2018-12-13 05:12:00* Test Item Value Reference Range Interpretation Comments Eosinophils # (Auto) (test code = 711-2) 0.1 0.0-0.4 [facility] HospitalBasophils # (Auto)2018-12-13 05:12:00* Test Item Value Reference Range Interpretation Comments Basophils # (Auto) (test code = 704-7) 0.0 0.0-0.1 [facility] HospitalAbsolute Immature Granulocyte (auto 2018-12-13 05:12:00* Test Item Value Reference Range Interpretation Comments Absolute Immature Granulocyte (auto (shaq t code = Absolute Immature Granulocyte (auto) 0.09 0-0.1 [facility] HospitalFree Yqcbusbxj3883-90-47 17:47:00* Test Item Value Reference Range Interpretation Comments Free Thyroxine (test code = 3024-7) 1.06 0.8-1.8 [facility] Awwxvahzv7689-71-55 17:47:00* Test Item Value Reference Range Interpretation Comments Free Thyroxine (test code = 3024-7) 1.06 0.8-1.8 [facility] Jzdxmseia5944-07-20 17:47:00* Test Item Value Reference Range Interpretation Comments Free Thyroxine (test code = 3024-7) 1.06 0.8-1.8 [facility] Wwtmejkyn0075-52-26 17:47:00* Test Item Value Reference Range Interpretation Comments Free Thyroxine (test code = 3024-7) 1.06 0.8-1.8 [facility] Lsjzkimli5419-62-67 17:47:00* Test Item Value Reference Range Interpretation Comments Free Thyroxine (test code = 3024-7) 1.06 0.8-1.8 [facility] HospitalThyroid Stimulating Hormone (TSH) 2018-12-12 07:50:00* Test Item Value Reference Range Interpretation Comments Thyroid Stimulating Hormone (TSH) (test code = 01587-3) 0.113 0.350-4.940 L [facility] HospitalThyroid Stimulating Hormone (TSH) 2018-12-12 07:50:00* Test Item Value Reference Range Interpretation Comments Thyroid Stimulating Hormone (TSH) (test code = 36160-7) 0.113 0.350-4.940 L [facility] HospitalB-Type Natriuretic Omiordi9705-17-12 07:30:00* Test Item Value Reference Range Interpretation Comments B-Type Natriuretic Peptide (test code = 02058-2) 65.9 0-100 [facility] HospitalHemoglobin A1c Amciynn3404-27-97 07:11:00 * Test Item Value Reference Range Interpretation Comments Hemoglobin A1c Percent (test code = Hemoglobin A1c Percent) 7.9 4.0-7.0 H [facility] HospitalMagnesium Jbmxm0355-27-50 07:11:00* Test Item Value Reference Range Interpretation Comments Magnesium Level (test code = 65420-1) 2.1 1.3-2.1 [facility] HospitalHemoglobin A1c Prhjaap4352-29-80 07:11:00 * Test Item Value Reference Range Interpretation Comments Hemoglobin A1c Percent (test code = Hemoglobin A1c Percent) 7.9 4.0-7.0 H [facility] HospitalCreatine Kinase PK2261-49-92 05:03:00* Test Item Value Reference Range Interpretation Comments Creatine Kinase MB (test code = 02377-1) 1.00 0-5.0 [facility] HospitalTroponin L1168-48-57 05:03:00* Test Item Value Reference Range Interpretation Comments Troponin I (test code = SKJ9683) 0.015 0-0.300 [facility] HospitalCreatine Kinase LK2202-13-14 05:03:00* Test Item Value Reference Range Interpretation Comments Creatine Kinase MB (test code = 29400-4) 1.00 0-5.0 [facility] HospitalTroponin O1886-37-55 05:03:00* Test Item Value Reference Range Interpretation Comments Troponin I (test code = SRY5220) 0.015 0-0.300 [facility] HospitalCreatine Dznwfy0729-85-25 04:57:00* Test Item Value Reference Range Interpretation Comments Creatine Kinase (test code = 2157-6) 46 29-168 [facility] HospitalCreatine Aiquce6181-46-63 04:57:00* Test Item Value Reference Range Interpretation Comments Creatine Kinase (test code = 2157-6) 46 29-168 [facility] HospitalTriglycerides Xjyfi0540-47-53 04:40:00* Test Item Value Reference Range Interpretation Comments Triglycerides Level (test code = 2571-8) 162 0-149 H [facility] HospitalCholesterol Bulxw4682-03-04 04:40:00* Test Item Value Reference Range Interpretation Comments Cholesterol Level (test code = 2093-3) 128 0-199 Less than 200 mg/dL Low Egiy716 - 239 mg/dL Borderline Nmos162 m g/dl and greater High Risk [facility] HospitalLDL Paiptwnllja6630-91-66 04:40:00* Test Item Value Reference Range Interpretation Comments LDL Cholesterol (test code = 2089-1) 66 60-130 [facility] Tyeyyjkjqck2274-87-52 04:40:00* Test Item Value Reference Range Interpretation Comments HDL Cholesterol (test code = 2085-9) 30 40-60 L [facility] HospitalCholesterol/HDL Ydxws4344-85-03 04:40:00 * Test Item Value Reference Range Interpretation Comments Cholesterol/HDL Ratio (test code = 9830-1) 4.3 3.0-3.6 H [facility] HospitalTriglycerides Krwdc8982-65-22 04:40:00* Test Item Value Reference Range Interpretation Comments Triglycerides Level (test code = 2571-8) 162 0-149 H [facility] HospitalCholesterol Oksgm8933-63-88 04:40:00* Test Item Value Reference Range Interpretation Comments Cholesterol Level (test code = 2093-3) 128 0-199 Less than 200 mg/dL Low Hncu620 - 239 mg/dL Borderline Ohsl927 m g/dl and greater High Risk [facility] HospitalLDL Tucvhvrxsbl7848-66-76 04:40:00* Test Item Value Reference Range Interpretation Comments LDL Cholesterol (test code = 2089-1) 66 60-130 [facility] Iqksvcnvqlw2069-20-34 04:40:00* Test Item Value Reference Range Interpretation Comments HDL Cholesterol (test code = 2085-9) 30 40-60 L [facility] HospitalCholesterol/HDL Fjmta1191-48-01 04:40:00 * Test Item Value Reference Range Interpretation Comments Cholesterol/HDL Ratio (test code = 9830-1) 4.3 3.0-3.6 H [facility] HospitalTotal Kvlwkdpmx8070-69-79 15:56:00* Test Item Value Reference Range Interpretation Comments Total Bilirubin (test code = 1974-2) 0.6 0.2-1.2 [facility] HospitalAspartate Amino Transf (AST/SGOT) 2018-12-11 15:56:00* Test Item Value Reference Range Interpretation Comments Aspartate Amino Transf (AST/SGOT) (test code = Aspartate Amino Transf (AST/SGOT)) 15 5-34 [facility] HospitalAlanine Aminotransferase (ALT/SGPT) 2018-12-11 15:56:00* Test Item Value Reference Range Interpretation Comments Alanine Aminotransferase (ALT/SGPT) (test code = 1742-6) 21 0-55 [facility] HospitalTotal Kvhkwqi5981-76-14 15:56:00* Test Item Value Reference Range Interpretation Comments Total Protein (test code = 2885-2) 7.0 6.5-8.1 [facility] HospitalAlbumin2019-07-05 15:56:00* Test Item Value Reference Range Interpretation Comments Albumin (test code = 1751-7) 3.7 3.5-5.0 [facility] HospitalGlobulin2019-07-05 15:56:00* Test Item Value Reference Range Interpretation Comments Globulin (test code = 40953-0) 3.3 2.3-3.5 [facility] HospitalAlbumin/Globulin Lvjkf8842-63-95 15:56:00 * Test Item Value Reference Range Interpretation Comments Albumin/Globulin Ratio (test code = 1759-0) 1.1 0.8-2.0 [facility] HospitalAlkaline Tleqnebhmkj5370-38-75 15:56:00* Test Item Value Reference Range Interpretation Comments Alkaline Phosphatase (test code = 6768-6) 77 40-150 [facility] HospitalUrine SSG3443-66-05 15:06:00* Test Item Value Reference Range Interpretation Comments Urine WBC (test code = 5821-4) NONE 0-5 [facility] HospitalUrine WGI7681-07-22 15:06:00* Test Item Value Reference Range Interpretation Comments Urine RBC (test code = 59755-8) NONE 0-5 [facility] HospitalUrine Cmyasyxy6572-93-48 15:06:00* Test Item Value Reference Range Interpretation Comments Urine Bacteria (test code = 37035-9) FEW NONE [facility] HospitalUrine Epithelial Uwqkm8236-93-82 15:06:00 * Test Item Value Reference Range Interpretation Comments Urine Epithelial Cells (test code = 59356-6) NONE NONE [facility] HospitalUrine Hyaline Uakvu0460-10-20 15:06:00* Test Item Value Reference Range Interpretation Comments Urine Hyaline Casts (test code = 28718-5) 2-5 0-1 H [facility] Hyaline Gvijf3766-35-20 15:06:00* Test Item Value Reference Range Interpretation Comments Urine Hyaline Casts (test code = 73031-4) 2-5 0-1 H [facility] HospitalUrine Hyaline Xqqld3294-07-41 15:06:00* Test Item Value Reference Range Interpretation Comments Urine Hyaline Casts (test code = 51719-0) 2-5 0-1 H [facility] Hyaline Pyxkg2408-17-10 15:06:00* Test Item Value Reference Range Interpretation Comments Urine Hyaline Casts (test code = 79029-5) 2-5 0-1 H [facility] HospitalUrine Hyaline Qlzeh6191-28-58 15:06:00* Test Item Value Reference Range Interpretation Comments Urine Hyaline Casts (test code = 48945-4) 2-5 0-1 H [facility] HospitalUrine Cwtas2034-45-96 14:54:00* Test Item Value Reference Range Interpretation Comments Urine Color (test code = 5778-6) YELLOW YELLOW [facility] HospitalUrine Kotoavd4907-16-99 14:54:00* Test Item Value Reference Range Interpretation Comments Urine Clarity (test code = 86467-4) CLEAR CLEAR [facility] HospitalUrine Specific Etawrsm0042-76-70 14:54:00 * Test Item Value Reference Range Interpretation Comments Urine Specific [place] (test code = 5811-5) <=1.005 1.010-1.02 5 [facility] HospitalUrine tY9763-35-87 14:54:00* Test Item Value Reference Range Interpretation Comments Urine pH (test code = 95814-5) 6.5 5-7 [facility] HospitalUrine Leukocyte Yfuzhieu7530-48-27 14:54:00* Test Item Value Reference Range Interpretation Comments Urine Leukocyte Esterase (test code = 49219-1) NEGATIVE NEGATIV E [facility] HospitalUrine Rbsensu4691-29-12 14:54:00* Test Item Value Reference Range Interpretation Comments Urine Nitrite (test code = 27628-3) NEGATIVE NEGATIVE [facility] HospitalUrine Nvsqpbc9578-99-15 14:54:00* Test Item Value Reference Range Interpretation Comments Urine Protein (test code = 36096-7) NEGATIVE NEGATIVE [facility] HospitalUrine Glucose (UA)2018-12-11 14:54:00* Test Item Value Reference Range Interpretation Comments Urine Glucose (UA) (test code = 62246-1) NEGATIVE NEGATIVE [facility] HospitalUrine Whxlxjt6358-81-96 14:54:00* Test Item Value Reference Range Interpretation Comments Urine Ketones (test code = 74170-9) NEGATIVE NEGATIVE [facility] HospitalUrine Nqgedpwhclwm8841-60-25 14:54:00* Test Item Value Reference Range Interpretation Comments Urine Urobilinogen (test code = 93356-7) 0.2 0.2-1 [facility] HospitalUrine Xtlnnudth2172-66-12 14:54:00* Test Item Value Reference Range Interpretation Comments Urine Bilirubin (test code = 1977-8) NEGATIVE NEGATIVE [facility] HospitalUrine Zkiqr5425-93-63 14:54:00* Test Item Value Reference Range Interpretation Comments Urine Blood (test code = 47901-3) NEGATIVE NEGATIVE [facility] HospitalProthrombin Dupf4256-83-87 14:32:00* Test Item Value Reference Range Interpretation Comments Prothrombin Time (test code = 5902-2) 23.1 11.9-14.5 H [facility] HospitalProthromb Time International Ratio 2018-12-11 14:32:00* Test Item Value Reference Range Interpretation Comments Prothromb Time International Ratio (test code = 6301-6) 1.97 Oral Anticoagulant Therapy INR Values:1. Low Intensity Therapy 1.5 - 2.02 . Moderate Intensity Therapy 2.0 - 3.03. High Intensity Therapy(1) 2.5 - 3. 54. High Intensity Therapy(2) 3.0 - 4.05. Panic Value INR > 5.0 [facility] HospitalActivated Partial Thromboplast Time 2018-12-11 14:32:00* Test Item Value Reference Range Interpretation Comments Activated Partial Thromboplast Time (test code = 53472-4) 34.5 23.8-35.5 [facility] HospitalProthrombin Tvdr1509-47-30 14:32:00* Test Item Value Reference Range Interpretation Comments Prothrombin Time (test code = 5902-2) 23.1 11.9-14.5 H [facility] HospitalProthromb Time International Ratio 2018-12-11 14:32:00* Test Item Value Reference Range Interpretation Comments Prothromb Time International Ratio (test code = 6301-6) 1.97 Oral Anticoagulant Therapy INR Values:1. Low Intensity Therapy 1.5 - 2.02 . Moderate Intensity Therapy 2.0 - 3.03. High Intensity Therapy(1) 2.5 - 3. 54. High Intensity Therapy(2) 3.0 - 4.05. Panic Value INR > 5.0 [facility] HospitalActivated Partial Thromboplast Time 2018-12-11 14:32:00* Test Item Value Reference Range Interpretation Comments Activated Partial Thromboplast Time (test code = 89327-9) 34.5 23.8-35.5 [facility] HospitalProthrombin Uzyg3242-40-11 14:32:00* Test Item Value Reference Range Interpretation Comments Prothrombin Time (test code = 5902-2) 23.1 11.9-14.5 H [facility] HospitalProthromb Time International Ratio 2018-12-11 14:32:00* Test Item Value Reference Range Interpretation Comments Prothromb Time International Ratio (test code = 6301-6) 1.97 Oral Anticoagulant Therapy INR Values:1. Low Intensity Therapy 1.5 - 2.02 . Moderate Intensity Therapy 2.0 - 3.03. High Intensity Therapy(1) 2.5 - 3. 54. High Intensity Therapy(2) 3.0 - 4.05. Panic Value INR > 5.0 [facility] HospitalActivated Partial Thromboplast Time 2018-12-11 14:32:00* Test Item Value Reference Range Interpretation Comments Activated Partial Thromboplast Time (test code = 88230-2) 34.5 23.8-35.5 [facility] HospitalProthrombin Ftcq5038-50-33 14:32:00* Test Item Value Reference Range Interpretation Comments Prothrombin Time (test code = 5902-2) 23.1 11.9-14.5 H [facility] HospitalProthromb Time International Ratio 2018-12-11 14:32:00* Test Item Value Reference Range Interpretation Comments Prothromb Time International Ratio (test code = 6301-6) 1.97 Oral Anticoagulant Therapy INR Values:1. Low Intensity Therapy 1.5 - 2.02 . Moderate Intensity Therapy 2.0 - 3.03. High Intensity Therapy(1) 2.5 - 3. 54. High Intensity Therapy(2) 3.0 - 4.05. Panic Value INR > 5.0 [facility] HospitalActivated Partial Thromboplast Time 2018-12-11 14:32:00* Test Item Value Reference Range Interpretation Comments Activated Partial Thromboplast Time (test code = 19515-1) 34.5 23.8-35.5 [facility] HospitalCT BRAIN VF9508-25-17 14:17:00 [facility] [address] [place] [address] Patient Name: ÁNGELA AWSHINGTON MR #: [id number] : 1935 Age/Sex: 83/F Req #: [id number] Adm Physician: Ordered by: MAMADOU NUNEZ MD Report #: [id number] Location: ER Room/Bed: Procedure: [id number] CT/CT BRAIN WO Exam Date: Exam Time: [...] MD CHEST SINGLE (NOT PORTABLE) 2018-12-11 14:09:00 [place] [address] Patient Name: ÁNGELA WASHINGTON MR #: [id number] : 1935 Age/Sex: 83/F Req #: [id number] Adm Physician: Ordered by: MAMADOU NUNEZ MD Report #: [id number] Location: ER Room/Bed: Procedure: DX/CH EST SINGLE [...] COPY TO: MINGO NUNEZ MD SHOULDER LEFT NCYRPNXT9219-88-69 21:13:00 [place] [address] Patient Name: ÁNGELA WASHINGTON MR #: [id number] : 1935 Age/Sex: 83/F Req #: [id number] Adm Physician: Ordered by: YECENIA DECKER NP Report #: [id number] Location: ER Room/Bed: Procedure: [id number] DX/NESS [place] LEFT COMPLETE Exam Date: 12/04/18 Exam [...] 12/04/182113 COPY TO: YECENIA DECKER NP Urine WFM9182-36-65 20:57:00* Test Item Value Reference Range Interpretation Comments Urine WBC (test code = 5821-4) NONE 0-5 [facility] HospitalU[facility] WCW0298-49-27 20:57:00* Test Item Value Reference Range Interpretation Comments Urine RBC (test code = 04423-7) NONE 0-5 [facility] HospitalUrine Semvwovv4196-77-59 20:57:00* Test Item Value Reference Range Interpretation Comments Urine Bacteria (test code = 96883-6) NONE NONE [facility] HospitalUrine Epithelial Kkhoi7769-44-97 20:57:00 * Test Item Value Reference Range Interpretation Comments Urine Epithelial Cells (test code = 17261-0) MODERATE NONE [facility] HospitalUrine Hyaline Ucljp8255-36-29 20:57:00* Test Item Value Reference Range Interpretation Comments Urine Hyaline Casts (test code = 21560-1) 0-1 0-1 [facility] HospitalU[facility] Angiw6169-50-40 20:49:00* Test Item Value Reference Range Interpretation Comments Urine Color (test code = 5778-6) YELLOW YELLOW [facility] HospitalUrine Gzitokn8297-77-84 20:49:00* Test Item Value Reference Range Interpretation Comments Urine Clarity (test code = 98796-3) CLEAR CLEAR [facility] Specific Govpwsn3115-37-71 20:49:00 * Test Item Value Reference Range Interpretation Comments Urine Specific [place] (test code = 5811-5) 1.010 1.010-1.02 5 [facility] HospitalU[facility] oD5747-98-75 20:49:00* Test Item Value Reference Range Interpretation Comments Urine pH (test code = 79191-6) 6 5-7 [facility] HospitalU[facility] Leukocyte Ktjvfqqh9607-89-82 20:49:00* Test Item Value Reference Range Interpretation Comments Urine Leukocyte Esterase (test code = 18723-2) TRACE NEGATIV E H [facility] Mtpycht3058-71-80 20:49:00* Test Item Value Reference Range Interpretation Comments Urine Nitrite (test code = 24114-7) NEGATIVE NEGATIVE [facility] Ajrqxrw1871-07-62 20:49:00* Test Item Value Reference Range Interpretation Comments Urine Protein (test code = 65682-8) NEGATIVE NEGATIVE [facility] Glucose (UA)2018-12-04 20:49:00* Test Item Value Reference Range Interpretation Comments Urine Glucose (UA) (test code = 64423-1) 3+ NEGATIVE [facility] Htmavqi7941-25-38 20:49:00* Test Item Value Reference Range Interpretation Comments Urine Ketones (test code = 07899-7) NEGATIVE NEGATIVE [facility] Qohpmusjjigb4221-76-17 20:49:00* Test Item Value Reference Range Interpretation Comments Urine Urobilinogen (test code = 37521-8) 0.2 0.2-1 [facility] Pysymjfsk9499-41-82 20:49:00* Test Item Value Reference Range Interpretation Comments Urine Bilirubin (test code = 1977-8) NEGATIVE NEGATIVE [facility] Katsd6601-06-19 20:49:00* Test Item Value Reference Range Interpretation Comments Urine Blood (test code = 05689-0) NEGATIVE NEGATIVE [facility] HospitalCreatine Kinase BP9868-80-58 20:44:00* Test Item Value Reference Range Interpretation Comments Creatine Kinase MB (test code = 56440-1) 2.40 0-5.0 [facility] HospitalTroponin E0211-61-37 20:44:00* Test Item Value Reference Range Interpretation Comments Troponin I (test code = OUQ6395) < 0.001 0-0.300 [facility]odium Ackud0848-76-84 20:24:00* Test Item Value Reference Range Interpretation Comments Sodium Level (test code = 2951-2) 131 136-145 L [facility] HospitalPotassium Pqrdr0698-89-06 20:24:00* Test Item Value Reference Range Interpretation Comments Potassium Level (test code = 2823-3) 4.3 3.5-5.1 [facility]Chloride Yvrnk7260-14-12 20:24:00* Test Item Value Reference Range Interpretation Comments Chloride Level (test code = 2075-0) 99 98-107 [facility] HospitalCarbon Dioxide Ixzso8605-31-87 20:24:00* Test Item Value Reference Range Interpretation Comments Carbon Dioxide Level (test code = 2028-9) 23 22-29 [facility] HospitalAnion Xjj8412-79-51 20:24:00* Test Item Value Reference Range Interpretation Comments Anion Gap (test code = 98719-7) 13.3 8-16 [facility] HospitalBlood Urea Cvaplmtb4438-46-27 20:24:00* Test Item Value Reference Range Interpretation Comments Blood Urea Nitrogen (test code = 3094-0) 18 7-26 [facility] HospitalCreatinine2019-06-28 20:24:00* Test Item Value Reference Range Interpretation Comments Creatinine (test code = 2160-0) 1.15 0.57-1.11 H [facility] HospitalBUN/Creatinine Ecalc0880-85-19 20:24:00* Test Item Value Reference Range Interpretation Comments BUN/Creatinine Ratio (test code = 3097-3) 16 6-25 [facility] HospitalEstimat Glomerular Filtration Rate 2018-12-04 20:24:00* Test Item Value Reference Range Interpretation Comments Estimat Glomerular Filtration Rate (test code = 245380008) 45 >60 L Ranges were taken from the National Kidney Disease Education Program and the [facility] literature.Reference ranges:60 or greater: Bvxida76-27 ( for 3 consecutive months): Chronic kidney disease 15 or less: Kidney failureFormerly [facility] HospitalGlucose Lgrab5431-86-19 20:24:00* Test Item Value Reference Range Interpretation Comments Glucose Level (test code = NID3551) 351 74-118 H [facility] HospitalCalcium Lhebc2545-31-64 20:24:00* Test Item Value Reference Range Interpretation Comments Calcium Level (test code = 20026-9) 8.7 8.4-10.2 [facility] HospitalTotal Dbxqhcsyr8692-43-26 20:24:00* Test Item Value Reference Range Interpretation Comments Total Bilirubin (test code = 1975-2) 0.3 0.2-1.2 [facility] HospitalAspartate Amino Transf (AST/SGOT) 2018-12-04 20:24:00* Test Item Value Reference Range Interpretation Comments Aspartate Amino Transf (AST/SGOT) (test code = Aspartate Amino Transf (AST/SGOT)) 23 5-34 [facility] HospitalAlanine Aminotransferase (ALT/SGPT) 2018-12-04 20:24:00* Test Item Value Reference Range Interpretation Comments Alanine Aminotransferase (ALT/SGPT) (test code = 1742-6) 31 0-55 [facility] HospitalTotal Fykknst0191-38-96 20:24:00* Test Item Value Reference Range Interpretation Comments Total Protein (test code = 2885-2) 6.4 6.5-8.1 L [facility] HospitalAlbumin2019-06-28 20:24:00* Test Item Value Reference Range Interpretation Comments Albumin (test code = 1751-7) 3.1 3.5-5.0 L [facility] HospitalGlobulin2019-06-28 20:24:00* Test Item Value Reference Range Interpretation Comments Globulin (test code = 21182-1) 3.3 2.3-3.5 [facility] HospitalAlbumin/Globulin Rakba1082-22-37 20:24:00 * Test Item Value Reference Range Interpretation Comments Albumin/Globulin Ratio (test code = 1759-0) 0.9 0.8-2.0 [facility] HospitalCHES SINGLE (PORTABLE)2018-12-04 20:20:00 [facility] [address] [address] Patient Name: ÁNGELA WASHINGTON MR #: [id number] : 1935 Age/Sex: 83/F Req #: [id number] Adm Physician: Ordered by: CLIFTON VARGAS MD Report #: [id number] Location: ER Room/Bed: Procedure: [id number] DX/CHES T SINGLE (PORTABLE) Exam Date: Exam [...] Comments B-Type Natriuretic Peptide (test code = 39560-3) 97.3 0-100 [facility] HospitalProthrombin Ammn3038-47-83 20:04:00* Test Item Value Reference Range Interpretation Comments Prothrombin Time (test code = 5902-2) 22.8 11.9-14.5 H [facility] HospitalProthromb Time International Ratio 2018-12-04 20:04:00* Test Item Value Reference Range Interpretation Comments Prothromb Time International Ratio (test code = 6301-6) 1.94 Oral Anticoagulant Therapy INR Values:1. Low Intensity Therapy 1.5 - 2.02 . Moderate Intensity Therapy 2.0 - 3.03. High Intensity Therapy(1) 2.5 - 3. 54. High Intensity Therapy(2) 3.0 - 4.05. Panic Value INR > 5.0 [facility] HospitalActivated Partial Thromboplast Time 2018-12-04 20:04:00* Test Item Value Reference Range Interpretation Comments Activated Partial Thromboplast Time (test code = 14756-8) 39.8 23.8-35.5 H [facility] HospitalWhite Blood Mhfgb9543-97-24 19:49:00* Test Item Value Reference Range Interpretation Comments White Blood Count (test code = 6690-2) 6.74 4.8-10.8 [facility] HospitalRed Blood Hyurd8700-72-08 19:49:00* Test Item Value Reference Range Interpretation Comments Red Blood Count (test code = 789-8) 3.56 3.6-5.1 L [facility] HospitalHemoglobin2019-06-28 19:49:00* Test Item Value Reference Range Interpretation Comments Hemoglobin (test code = 00349-1) 10.6 12.0-16.0 L [facility] HospitalHematocrit2019-06-28 19:49:00* Test Item Value Reference Range Interpretation Comments Hematocrit (test code = 4544-3) 31.9 34.2-44.1 L [facility] HospitalMean Corpuscular Pnuvkc8828-93-45 19:49:00* Test Item Value Reference Range Interpretation Comments Mean Corpuscular Volume (test code = 787-2) 89.6 81-99 [facility] HospitalMean Corpuscular Vasezgfufc1210-84-79 19:49:00* Test Item Value Reference Range Interpretation Comments Mean Corpuscular Hemoglobin (test code = 785-6) 29.8 28-32 [facility] HospitalMean Corpuscular Hemoglobin Concent 2018-12-04 19:49:00* Test Item Value Reference Range Interpretation Comments Mean Corpuscular Hemoglobin Concent (test code = 786-4) 33.2 31-35 [facility] HospitalRed Cell Distribution Ycwvu2111-35-66 19:49:00* Test Item Value Reference Range Interpretation Comments Red Cell Distribution Width (test code = 24143-3) 14.6 11.7 -14.4 H [facility] HospitalPlatelet Dpzpj4406-12-20 19:49:00* Test Item Value Reference Range Interpretation Comments Platelet Count (test code = 777-3) 223 140-360 [facility] HospitalNeutrophils (%) (Auto)2018-12-04 19:49:00 * Test Item Value Reference Range Interpretation Comments Neutrophils (%) (Auto) (test code = 24438-4) 54.3 38.7-80.0 [facility] HospitalLymphocytes (%) (Auto)2018-12-04 19:49:00 * Test Item Value Reference Range Interpretation Comments Lymphocytes (%) (Auto) (test code = 736-9) 28.5 18.0-39.1 [facility] HospitalMonocytes (%) (Auto)2018-12-04 19:49:00* Test Item Value Reference Range Interpretation Comments Monocytes (%) (Auto) (test code = 5905-5) 11.3 4.4-11.3 [facility] HospitalEosinophils (%) (Auto)2018-12-04 19:49:00 * Test Item Value Reference Range Interpretation Comments Eosinophils (%) (Auto) (test code = 713-8) 4.5 0.0-6.0 [facility] HospitalBasophils (%) (Auto)2018-12-04 19:49:00* Test Item Value Reference Range Interpretation Comments Basophils (%) (Auto) (test code = 706-2) 0.7 0.0-1.0 [facility] HospitalIM GRANULOCYTES %2018-12-04 19:49:00* Test Item Value Reference Range Interpretation Comments IM GRANULOCYTES % (test code = IM GRANULOCYTES %) 0.7 0.0- 1.0 [facility] HospitalNeutrophils # (Auto)2018-12-04 19:49:00* Test Item Value Reference Range Interpretation Comments Neutrophils # (Auto) (test code = 751-8) 3.7 2.1-6.9 [facility] HospitalLymphocytes # (Auto)2018-12-04 19:49:00* Test Item Value Reference Range Interpretation Comments Lymphocytes # (Auto) (test code = 04642-7) 1.9 1.0-3.2 [facility] HospitalMonocytes # (Auto)2018-12-04 19:49:00* Test Item Value Reference Range Interpretation Comments Monocytes # (Auto) (test code = 742-7) 0.8 0.2-0.8 [facility] HospitalEosinophils # (Auto)2018-12-04 19:49:00* Test Item Value Reference Range Interpretation Comments Eosinophils # (Auto) (test code = 711-2) 0.3 0.0-0.4 [facility] HospitalBasophils # (Auto)2018-12-04 19:49:00* Test Item Value Reference Range Interpretation Comments Basophils # (Auto) (test code = 704-7) 0.1 0.0-0.1 [facility] HospitalAbsolute Immature Granulocyte (auto 2018-12-04 19:49:00* Test Item Value Reference Range Interpretation Comments Absolute Immature Granulocyte (auto (shaq t code = Absolute Immature Granulocyte (auto) 0.05 0-0.1 [facility] HospitalCreatine Kinase HB4811-36-67 23:44:00* Test Item Value Reference Range Interpretation Comments Creatine Kinase MB (test code = 96908-4) 2.80 0-5.0 [facility] HospitalTroponin E6057-50-74 23:44:00* Test Item Value Reference Range Interpretation Comments Troponin I (test code = CAP2117) < 0.001 0-0.300 [facility]odium Mrnux0803-55-94 23:35:00* Test Item Value Reference Range Interpretation Comments Sodium Level (test code = 2951-2) 131 136-145 L [facility] HospitalPotassium Esxmx7505-93-31 23:35:00* Test Item Value Reference Range Interpretation Comments Potassium Level (test code = 2823-3) 4.2 3.5-5.1 [facility] HospitalChloride Aaizw0509-82-71 23:35:00* Test Item Value Reference Range Interpretation Comments Chloride Level (test code = 2075-0) 96 98-107 L [facility] HospitalCarbon Dioxide Llulu1226-35-06 23:35:00* Test Item Value Reference Range Interpretation Comments Carbon Dioxide Level (test code = 2028-9) 24 22-29 [facility] HospitalAnion Hgm5391-96-67 23:35:00* Test Item Value Reference Range Interpretation Comments Anion Gap (test code = 30764-3) 15.2 8-16 [facility] HospitalBlood Urea Ujmlylgl7086-87-28 23:35:00* Test Item Value Reference Range Interpretation Comments Blood Urea Nitrogen (test code = 3094-0) 32 7-26 H [facility] HospitalCreatinine2019-05-05 23:35:00* Test Item Value Reference Range Interpretation Comments Creatinine (test code = 2160-0) 1.26 0.57-1.11 H [facility] HospitalBUN/Creatinine Knpht6438-01-17 23:35:00* Test Item Value Reference Range Interpretation Comments BUN/Creatinine Ratio (test code = 3097-3) 25 6-25 [facility] HospitalEstimat Glomerular Filtration Rate 2018-10-11 23:35:00* Test Item Value Reference Range Interpretation Comments Estimat Glomerular Filtration Rate (test code = 057961960) 41 >60 L Ranges were taken from the National Kidney Disease Education Program and the Pending sale to [facility] literature.Reference ranges:60 or greater: Edkwmr04-07 ( for 3 consecutive months): Chronic kidney disease 15 or less: Kidney failureFormerly [facility] HospitalGlucose Gfesc9778-75-08 23:35:00* Test Item Value Reference Range Interpretation Comments Glucose Level (test code = YAO9195) 325 74-118 H [facility] HospitalCalcium Ibaed4436-08-65 23:35:00* Test Item Value Reference Range Interpretation Comments Calcium Level (test code = 86585-9) 9.0 8.4-10.2 [facility] HospitalTotal Rcgkuwrzr6432-45-84 23:35:00* Test Item Value Reference Range Interpretation Comments Total Bilirubin (test code = 1975-2) 0.7 0.2-1.2 [facility] HospitalAspartate Amino Transf (AST/SGOT) 2018-10-11 23:35:00* Test Item Value Reference Range Interpretation Comments Aspartate Amino Transf (AST/SGOT) (test code = Aspartate Amino Transf (AST/SGOT)) 23 5-34 [facility] HospitalAlanine Aminotransferase (ALT/SGPT) 2018-10-11 23:35:00* Test Item Value Reference Range Interpretation Comments Alanine Aminotransferase (ALT/SGPT) (test code = 1742-6) 27 0-55 [facility] HospitalTotal Dbcvjbn9891-59-38 23:35:00* Test Item Value Reference Range Interpretation Comments Total Protein (test code = 2885-2) 6.8 6.5-8.1 [facility] HospitalAlbumin2019-05-05 23:35:00* Test Item Value Reference Range Interpretation Comments Albumin (test code = 1751-7) 3.2 3.5-5.0 L [facility] HospitalGlobulin2019-05-05 23:35:00* Test Item Value Reference Range Interpretation Comments Globulin (test code = 56469-9) 3.6 2.3-3.5 H [facility] HospitalAlbumin/Globulin Ywoku5488-99-14 23:35:00 * Test Item Value Reference Range Interpretation Comments Albumin/Globulin Ratio (test code = 1759-0) 0.9 0.8-2.0 [facility] HospitalAlkaline Msxrwvzaneb7225-30-83 23:35:00* Test Item Value Reference Range Interpretation Comments Alkaline Phosphatase (test code = 6768-6) 71 40-150 [facility] HospitalCreatine Emohkj8777-24-62 23:35:00* Test Item Value Reference Range Interpretation Comments Creatine Kinase (test code = 2157-6) 117 29-168 [facility] HospitalAlkaline Awutsqrfmig6363-73-22 23:35:00* Test Item Value Reference Range Interpretation Comments Alkaline Phosphatase (test code = 6768-6) 71 40-150 [facility] HospitalCreatine Zepwnf3298-88-77 23:35:00* Test Item Value Reference Range Interpretation Comments Creatine Kinase (test code = 2157-6) 117 29-168 [facility] HospitalUrine ARR7853-44-42 21:55:00* Test Item Value Reference Range Interpretation Comments Urine WBC (test code = 5821-4) 0-5 0-5 [facility] HospitalUrine KVZ5155-03-34 21:55:00* Test Item Value Reference Range Interpretation Comments Urine RBC (test code = 88261-6) 0-5 0-5 [facility] HospitalUrine Aiogoyvi7824-92-80 21:55:00* Test Item Value Reference Range Interpretation Comments Urine Bacteria (test code = 24017-3) FEW NONE [facility] HospitalUrine Epithelial Pcpvb9162-15-97 21:55:00 * Test Item Value Reference Range Interpretation Comments Urine Epithelial Cells (test code = 75821-2) MODERATE NONE [facility] HospitalUrine Poroz5688-41-12 21:44:00* Test Item Value Reference Range Interpretation Comments Urine Color (test code = 5778-6) YELLOW YELLOW [facility] HospitalUrine Idnkerr1258-90-84 21:44:00* Test Item Value Reference Range Interpretation Comments Urine Clarity (test code = 57390-9) HAZY CLEAR [facility] HospitalUrine Specific Mkfupbo9612-36-92 21:44:00 * Test Item Value Reference Range Interpretation Comments Urine Specific [place] (test code = 5811-5) 1.015 1.010-1.02 5 [facility] HospitalUrine jK9928-12-25 21:44:00* Test Item Value Reference Range Interpretation Comments Urine pH (test code = 99877-2) 6 5-7 [facility] HospitalUrine Leukocyte Fzioijwb7091-06-91 21:44:00* Test Item Value Reference Range Interpretation Comments Urine Leukocyte Esterase (test code = 5799-2) 1+ NEGATIVE H [facility] HospitalUrine Wdhfdgi4356-66-22 21:44:00* Test Item Value Reference Range Interpretation Comments Urine Nitrite (test code = 60462-2) NEGATIVE NEGATIVE [facility] HospitalUrine Xubbqwg5895-52-84 21:44:00* Test Item Value Reference Range Interpretation Comments Urine Protein (test code = 5804-0) NEGATIVE NEGATIVE [facility] HospitalUrine Glucose (UA)2018-10-11 21:44:00* Test Item Value Reference Range Interpretation Comments Urine Glucose (UA) (test code = 2349-9) NEGATIVE NEGATIVE [facility] HospitalUrine Yemlzjh5554-18-45 21:44:00* Test Item Value Reference Range Interpretation Comments Urine Ketones (test code = 94084-0) NEGATIVE NEGATIVE [facility] HospitalUrine Snllabuirgrz7541-48-12 21:44:00* Test Item Value Reference Range Interpretation Comments Urine Urobilinogen (test code = 58269-4) 0.2 0.2-1 [facility] HospitalUrine Cpirtywbp6109-06-59 21:44:00* Test Item Value Reference Range Interpretation Comments Urine Bilirubin (test code = 1978-6) NEGATIVE NEGATIVE [facility] HospitalUrine Hogmr5764-54-20 21:44:00* Test Item Value Reference Range Interpretation Comments Urine Blood (test code = 74372-7) NEGATIVE NEGATIVE [facility] HospitalCHEST 2 YNWPG1696-90-94 21:41:00 [facility] [address] [address] Patient Name: ÁNGELA WASHINGTON MR #: [id number] : 1935 Age/Sex: 82/F Req #: [id number] Adm Physician: Ordered by: KENDALL LIU MD Report #: [id number] Location: ER Room/Bed: Procedure: [id number] DX/CH EST 2 VIEWS Exam Date: 10/11/18 [...] COPY TO: KENDALL LIU MD White Blood Yflvl0320-26-92 21:13:00* Test Item Value Reference Range Interpretation Comments White Blood Count (test code = 6690-2) 7.71 4.8-10.8 [facility] HospitalRed Blood Humsd3787-77-03 21:13:00* Test Item Value Reference Range Interpretation Comments Red Blood Count (test code = 789-8) 4.20 3.6-5.1 [facility] HospitalHemoglobin2019-05-05 21:13:00* Test Item Value Reference Range Interpretation Comments Hemoglobin (test code = 75947-2) 11.9 12.0-16.0 L [facility] HospitalHematocrit2019-05-05 21:13:00* Test Item Value Reference Range Interpretation Comments Hematocrit (test code = 4544-3) 35.0 34.2-44.1 [facility] HospitalMean Corpuscular Onypqw9502-50-89 21:13:00* Test Item Value Reference Range Interpretation Comments Mean Corpuscular Volume (test code = 787-2) 83.3 81-99 [facility] HospitalMean Corpuscular Uhkovswwtm4888-10-60 21:13:00* Test Item Value Reference Range Interpretation Comments Mean Corpuscular Hemoglobin (test code = 785-6) 28.3 28-32 [facility] HospitalMean Corpuscular Hemoglobin Concent 2018-10-11 21:13:00* Test Item Value Reference Range Interpretation Comments Mean Corpuscular Hemoglobin Concent (test code = 786-4) 34.0 31-35 [facility] HospitalRed Cell Distribution Ffwvp9182-12-69 21:13:00* Test Item Value Reference Range Interpretation Comments Red Cell Distribution Width (test code = 63973-2) 16.9 11.7 -14.4 H [facility] HospitalPlatelet Yhtxm5948-74-79 21:13:00* Test Item Value Reference Range Interpretation Comments Platelet Count (test code = 777-3) 233 140-360 [facility] HospitalNeutrophils (%) (Auto)2018-10-11 21:13:00 * Test Item Value Reference Range Interpretation Comments Neutrophils (%) (Auto) (test code = 14503-9) 55.8 38.7-80.0 [facility] HospitalLymphocytes (%) (Auto)2018-10-11 21:13:00 * Test Item Value Reference Range Interpretation Comments Lymphocytes (%) (Auto) (test code = 736-9) 30.0 18.0-39.1 [facility] HospitalMonocytes (%) (Auto)2018-10-11 21:13:00* Test Item Value Reference Range Interpretation Comments Monocytes (%) (Auto) (test code = 5905-5) 10.5 4.4-11.3 [facility] HospitalEosinophils (%) (Auto)2018-10-11 21:13:00 * Test Item Value Reference Range Interpretation Comments Eosinophils (%) (Auto) (test code = 713-8) 2.5 0.0-6.0 [facility] HospitalBasophils (%) (Auto)2018-10-11 21:13:00* Test Item Value Reference Range Interpretation Comments Basophils (%) (Auto) (test code = 706-2) 0.6 0.0-1.0 [facility] HospitalIM GRANULOCYTES %2018-10-11 21:13:00* Test Item Value Reference Range Interpretation Comments IM GRANULOCYTES % (test code = IM GRANULOCYTES %) 0.6 0.0- 1.0 [facility] HospitalNeutrophils # (Auto)2018-10-11 21:13:00* Test Item Value Reference Range Interpretation Comments Neutrophils # (Auto) (test code = 751-8) 4.3 2.1-6.9 [facility] HospitalLymphocytes # (Auto)2018-10-11 21:13:00* Test Item Value Reference Range Interpretation Comments Lymphocytes # (Auto) (test code = 00418-6) 2.3 1.0-3.2 [facility] HospitalMonocytes # (Auto)2018-10-11 21:13:00* Test Item Value Reference Range Interpretation Comments Monocytes # (Auto) (test code = 742-7) 0.8 0.2-0.8 [facility] HospitalEosinophils # (Auto)2018-10-11 21:13:00* Test Item Value Reference Range Interpretation Comments Eosinophils # (Auto) (test code = 711-2) 0.2 0.0-0.4 [facility] HospitalBasophils # (Auto)2018-10-11 21:13:00* Test Item Value Reference Range Interpretation Comments Basophils # (Auto) (test code = 704-7) 0.1 0.0-0.1 [facility] HospitalAbsolute Immature Granulocyte (auto 2018-10-11 21:13:00* Test Item Value Reference Range Interpretation Comments Absolute Immature Granulocyte (auto (shaq t code = Absolute Immature Granulocyte (auto) 0.05 0-0.1 [facility] HospitalChemistry - BNP, HgbA1c, ECDj4543-87-51 14:29:00* Test Item Value Reference Range Interpretation Comments Chemistry - BNP, HgbA1c, PTHi (test code = BNP) 180.7 pg/mL 0-100 H Jytpzvmyo6382-49-19 14:17:00* Test Item Value Reference Range Interpretation [...] code = CA) 9.0 mg/dL 7.8-10.44 N Ebdrldrqhh2125-78-26 14:09:00* Test Item Value Reference Range Interpretation [...] thou/uL 0.0-0.2 N Chemistry - BNP, HgbA1c, CBYn6032-59-99 12:39:00* Test Item Value Reference Range Interpretation Comments Chemistry - BNP, HgbA1c, PTHi (test code = BNP) 117.0 pg/mL 0-100 H Hvntijzzm4712-49-89 12:30:00* Test Item Value Reference Range Interpretation [...] code = ALT) 13 U/L 8-55 N Wfjeqyfcgj2426-19-36 12:23:00* Test Item Value Reference Range Interpretation [...] UABLD) Negative Negative Urine Source: Urine Straight ObnftpxiApznwaqzvb9364-89-33 12:13:00* Test Item Value Reference Range Interpretation [...] code = BASO#) 0.1 thou/uL 0.0-0.2 N Zmayoypk5236-10-44 11:56:00* Test Item Value Reference Range Interpretation Comments Accuchek (test code = ACU) 225 mg/dL 70-110 H Culture, Fwvui1244-34-66 11:48:00* Test Item Value Reference Range Interpretation Comments Culture, Urine (test code = URC) NF Culture, Urine (test code = URC1) 25 MSF Ogpmtkxt2505-93-41 10:54:00* Test Item Value Reference Range Interpretation Comments Accuchek (test code = ACU) 168 mg/dL 70-110 H R EPORT RESULTNOTIFIED NURSE Pplvwjuabu2716-43-45 09:58:00* Test Item Value Reference Range Interpretation [...] = UABLD) Negative Negative Urine Source: Urine RmrfaaXbtzrfosisu7373-03-97 14:22:00* Test Item Value Reference Range Interpretation Comments Coagulation (test code = PT-T) 14.9 SEC 12.0-14.7 H Coagulation (test code = INR) 1.2 ATTENTION: READ CAREFULLY The recommended therapeutic ranges for oral anticoagulanttreatments are: Low Intensity: 1.5 - 2.0 Moderate Intensity: 2.0 - 3.0 High Intensity (1): 2.5 - 3.5 High Intensity (2): 3.0 - 4.0 CRITICAL: > 4.0 Uegnasfdzvx9189-15-67 14:34:00* Test Item Value Reference Range Interpretation Comments Coagulation (test code = PT-T) 14.1 SEC 12.0-14.7 N Coagulation (test code = INR) 1.1 ATTENTION: READ CAREFULLY The recommended therapeutic ranges for oral anticoagulanttreatments are: Low Intensity: 1.5 - 2.0 Moderate Intensity: 2.0 - 3.0 High Intensity (1): 2.5 - 3.5 High Intensity (2): 3.0 - 4.0 CRITICAL: > 4.0 Swzumhznuzm5087-86-41 14:39:00* Test Item Value Reference Range Interpretation Comments Coagulation (test code = PT-T) 14.1 SEC 12.0-14.7 N Coagulation (test code = INR) 1.1 ATTENTION: READ CAREFULLY The recommended therapeutic ranges for oral anticoagulanttreatments are: Low Intensity: 1.5 - 2.0 Moderate Intensity: 2.0 - 3.0 High Intensity (1): 2.5 - 3.5 High Intensity (2): 3.0 - 4.0 CRITICAL: > 4.0 Viqatzerdna7006-77-20 20:20:00* Test Item Value Reference Range Interpretation Comments Coagulation (test code = PT-T) 13.8 SEC 12.0-14.7 N Coagulation (test code = INR) 1.1 ATTENTION: READ CAREFULLY The recommended therapeutic ranges for oral anticoagulanttreatments are: Low Intensity: 1.5 - 2.0 Moderate Intensity: 2.0 - 3.0 High Intensity (1): 2.5 - 3.5 High Intensity (2): 3.0 - 4.0 CRITICAL: > 4.0 Qxinelcxogc7666-71-60 13:18:00* Test Item Value Reference Range Interpretation Comments Coagulation (test code = PT-T) 13.6 SEC 12.0-14.7 N Coagulation (test code = INR) 1.0 ATTENTION: READ CAREFULLY The recommended therapeutic ranges for oral anticoagulanttreatments are: Low Intensity: 1.5 - 2.0 Moderate Intensity: 2.0 - 3.0 High Intensity (1): 2.5 - 3.5 High Intensity (2): 3.0 - 4.0 CRITICAL: > 4.0 [id number] 16:51:00* Test Item Value Reference Range Interpretation Comments Coagulation (test code = PT-T) 13.5 SEC 12.0-14.7 N Coagulation (test code = INR) 1.0 ATTENTION: READ CAREFULLY The recommended therapeutic ranges for oral anticoagulanttreatments are: Low Intensity: 1.5 - 2.0 Moderate Intensity: 2.0 - 3.0 High Intensity (1): 2.5 - 3.5 High Intensity (2): 3.0 - 4.0 CRITICAL: > 4.0 [id number] 07:41:00* Test Item Value Reference Range Interpretation Comments Coagulation (test code = PT-T) 14.0 SEC 12.0-14.7 N Coagulation (test code = INR) 1.1 ATTENTION: READ CAREFULLY The recommended therapeutic ranges for oral anticoagulanttreatments are: Low Intensity: 1.5 - 2.0 Moderate Intensity: 2.0 - 3.0 High Intensity (1): 2.5 - 3.5 High Intensity (2): 3.0 - 4.0 CRITICAL: > 4.0 [id number] 09:48:00* Test Item Value Reference Range Interpretation [...] Urine Source: Urine VoidedChemistry - BNP, HgbA1c, [id number] 09:28:00* Test Item Value Reference Range Interpretation Comments Chemistry - BNP, HgbA1c, PTHi (test code = BNP) 75.4 pg/mL 0-100 N [id number] 09:26:00* Test Item Value Reference Range Interpretation [...] Hematology (test code = PCOMMENT) Appears Adequate [id number] 09:24:00* Test Item Value Reference Range Interpretation Comments Chemistry (test code = CKMBM-T) 2.0 ng/mL 0-6.6 N Chemistry (test code = TROPI-T) Less than 0.010 ng/mL < 0.028 Reference Range 0.00 - 0.028 ng/mL Negative 0.029 - 0.29 ng/mL Indeterminate Greater or Equal to 0.3 ng/mL Strongly suggests MO [id number] 09:23:00* Test Item Value Reference Range Interpretation [...] code = CA) 8.8 mg/dL 7.8-10.44 N [id number] 09:21:00* Test Item Value Reference Range Interpretation Comments Accuchek (test code = ACU) 174 mg/dL 70-110 H
[2020-01-07] MEDS ORDERED: PANTOPRAZOLE SOD 40 MG TABEC PO SCH (21:00)
[2020-01-07] MEDS ORDERED: PREGABALIN 25 MG CAP PO SCH (21:00)
[2020-01-08] MEDS ORDERED: ATORVASTATIN 20 MG TAB PO SCH (09:00)
[2020-01-08] MEDS ORDERED: LISINOPRIL 10 MG TAB PO SCH (09:00)
[2020-01-08] MEDS ORDERED: FUROSEMIDE 40 MG TAB PO SCH (09:00)
[2020-01-08] MEDS ORDERED: FERROUS SULFATE 325 MG TAB PO SCH (09:00)
[2020-01-08] MEDS ORDERED: ASCORBIC ACID 500 MG TAB PO SCH (09:00)
[2020-01-08] MEDS ORDERED: ASPIRIN 81 MG ENTERIC COATED PO SCH (09:00)
[2020-01-08] MEDS ORDERED: LISINOPRIL 2.5 MG TAB PO SCH (09:00)
[2020-01-08] MEDS ORDERED: ATORVASTATIN 40 MG TAB PO SCH (09:00)
== END 2020-01-07 17:00 | disposition home or self-care (01) ==
LOC: ER 13:18 → ERHOLD 14:15 → MED/SURG2 17:37
PROVIDERS: ADMIT Internal Medicine; ATTEND Internal Medicine
DX: R56.9 Unspecified convulsions (principal); R53.1 Weakness; Z95.0 Presence of cardiac pacemaker; I48.91 Unspecified atrial fibrillation; I25.10 Atherosclerotic heart disease of native coronary artery without angina pectoris; K21.9 Gastro-esophageal reflux disease without esophagitis; E78.5 Hyperlipidemia, unspecified; E11.22 Type 2 diabetes mellitus with diabetic chronic kidney disease; I12.9 Hypertensive chronic kidney disease with stage 1 through stage 4 chronic kidney disease, or unspecified chronic kidney disease; N18.3 Chronic kidney disease, stage 3 (moderate); Z80.9 Family history of malignant neoplasm, unspecified; Z82.49 Family history of ischemic heart disease and other diseases of the circulatory system; Z88.0 Allergy status to penicillin; Z88.8 Allergy status to other drugs, medicaments and biological substances; E03.9 Hypothyroidism, unspecified; F03.90 Unspecified dementia, unspecified severity, without behavioral disturbance, psychotic disturbance, mood disturbance, and anxiety; I69.320 Aphasia following cerebral infarction; Z95.1 Presence of aortocoronary bypass graft; Z90.49 Acquired absence of other specified parts of digestive tract; L03.115 Cellulitis of right lower limb; Z11.59 Encounter for screening for other viral diseases
CPT/HCPCS: 36415 ×2; 70450; 71045; 80053 ×2; 80061; 80307; 81001; 82542; 82550 ×2; 82553; 82948; 84443; 84484; 85025 ×2; 85610; 85730; 92526; 92610; 93005; 93970; 97116; 97139; 97161; 97530; 99284; G0378 ×2; J0696; J1953; U0002

== ENCOUNTER 2020-06-30 10:04 | Inpatient (IN) | payer MEDICARE, BC ==
[~2020-06-30] VITALS: Ht 167.6 cm; Wt 83.5 kg
[~2020-06-30 10:04] MED LIST changes: +CEFDINIR300 MG PO; +LINZESS145 MCG; +TRILEPTAL300 MG PO
[2020-06-30 10:22] LABS: BASOPHILS # (AUTO) 0.1 (0.0-0.1); BASOPHILS % 0.7 % (0.0-1.0); EOSINOPHILS % 0.4 % (0.0-6.0); HEMATOCRIT 38.1 % (34.2-44.1); HEMOGLOBIN 12.7 g/dL (12.0-16.0); LYMPHOCYTES # (AUTO) 1.5 (1.0-3.2); LYMPHOCYTES % 14.5 % (18.0-39.1); MEAN CORPUSCULAR HEMOGLOBIN 26.3 pg (28-32); MEAN CORPUSCULAR HGB CONC 33.3 g/dL (31-35); MONOCYTES % 9.6 % (4.4-11.3); NEUTROPHILS # (AUTO) 7.7 (2.1-6.9); NEUTROPHILS % 74.4 % (38.7-80.0); PLATELET COUNT 329 x10e3/uL (140-360); RED BLOOD COUNT 4.82 x10e6/uL (3.6-5.1); RED CELL DISTRIBUTION WIDTH 14.8 % (11.7-14.4)
[2020-06-30 10:47] LABS: ALBUMIN 3.4 g/dL (3.5-5.0); ANION GAP 19.1 mmol/L (8-16); CALCIUM 7.7 mg/dL (8.4-10.2); CREATININE, SERUM 1.33 mg/dL (0.57-1.11)
[2020-06-30 10:53] LABS: CREATINE KINASE MB 1.1 ng/mL (0-5.0)
[2020-06-30 10:55] LABS: POTASSIUM 2.1 mmol/L (3.5-5.1)
[2020-06-30] MEDS ORDERED: POTASSIUM CHLORIDE 20MEQ/15ML UDC NG ONE (11:00)
[2020-06-30] MEDS ORDERED: POTASSIUM CHLORIDE 10MEQ/100ML 100 ML IV ONE (11:15)
[2020-06-30] MEDS ORDERED: ASPIRIN 81 MG CHEW TAB PO ONE (11:15)
[2020-06-30] MEDS ORDERED: SODIUM CHLORIDE 0.9% 250ML 250 ML ONE (11:17)
[2020-06-30] MEDS: KCL 20 MEQ PACKET/ ORAL SOLN PO SCH ×3 (11:29→16:33)
[2020-06-30] MEDS ORDERED: KCL 20 MEQ PACKET/ ORAL SOLN PO SCH (11:30)
[2020-06-30] MEDS ORDERED: POTASSIUM CHLORIDE 20MEQ/15ML UDC PO SCH (12:00)
[2020-06-30 13:35] VITALS: BP 129/88
[2020-06-30 14:32] VITALS: BP 139/72
[2020-06-30 14:57] VITALS: BP 139/72
[2020-06-30 15:01] VITALS: BP 139/72
[2020-06-30] MEDS ORDERED: LEVOTHYROXINE25 MCG PO (15:30)
[2020-06-30] MEDS ORDERED: MECLIZINE HCL12.5 MG PO (15:47)
[2020-06-30] MEDS ORDERED: LISINOPRIL2.5 MG PO (15:47)
[2020-06-30] MEDS ORDERED: ATIVAN0.5 MG PO (15:47)
[2020-06-30 16:09] VITALS: BP 128/75
[2020-06-30] MEDS ORDERED: ONDANSETRON HCL INJ 2MG/ML 2ML 2 MG/ML VIAL IV PRN (17:30)
[2020-06-30] MEDS ORDERED: ACETAMINOPHEN 325 MG TAB PO PRN (17:30)
[2020-06-30] MEDS ORDERED: HYDRALAZINE HCL 20 MG/ML VIAL IV PRN (17:30)
[2020-06-30] MEDS ORDERED: MECLIZINE HCL 12.5 MG TAB PO PRN (17:45)
[2020-06-30] MEDS: FAMOTIDINE 20 MG TAB PO SCH (17:56)
[2020-06-30 18:20] LABS: CREATINE KINASE MB 1.1 ng/mL (0-5.0)
[2020-06-30 18:32] LABS: PHOSPHORUS 3.3 MG/DL (2.3-4.7)
[2020-06-30 20:00] VITALS: BP 110/60
[2020-06-30] MEDS: PREGABALIN 25 MG CAP PO SCH (20:22)
[2020-06-30] MEDS ORDERED: TEMAZEPAM 15 MG CAP PO PRN (21:00)
[2020-07-01] VITALS (9 sets, daily range): BP systolic 102–116; BP diastolic 48–66
[2020-07-01 03:17] LABS: CREATINE KINASE MB 0.6 ng/mL (0-5.0)
[2020-07-01 04:59] LABS: BASOPHILS # (AUTO) 0.1 (0.0-0.1); BASOPHILS % 0.9 % (0.0-1.0); EOSINOPHILS # (AUTO) 0.1 (0.0-0.4); EOSINOPHILS % 1.7 % (0.0-6.0); HEMATOCRIT 35.6 % (34.2-44.1); HEMOGLOBIN 11.7 g/dL (12.0-16.0); LYMPHOCYTES # (AUTO) 2.3 (1.0-3.2); LYMPHOCYTES % 28.5 % (18.0-39.1); MEAN CORPUSCULAR HEMOGLOBIN 26.2 pg (28-32); MEAN CORPUSCULAR HGB CONC 32.9 g/dL (31-35); MEAN CORPUSCULAR VOLUME 79.6 fL (81-99); MONOCYTES # (AUTO) 1.1 (0.2-0.8); MONOCYTES % 13.6 % (4.4-11.3); NEUTROPHILS # (AUTO) 4.4 (2.1-6.9); NEUTROPHILS % 54.7 % (38.7-80.0); PLATELET COUNT 329 x10e3/uL (140-360); RED BLOOD COUNT 4.47 x10e6/uL (3.6-5.1); RED CELL DISTRIBUTION WIDTH 15.1 % (11.7-14.4)
[2020-07-01 05:11] LABS: ALBUMIN 3.4 g/dL (3.5-5.0); CREATININE, SERUM 1.34 mg/dL (0.57-1.11)
[2020-07-01] MEDS: LEVOTHYROXINE SODIUM 25 MCG TABLET PO SCH (07:00)
[2020-07-01] MEDS ORDERED: POTASSIUM CHLORIDE 20 MEQ TAB CR PO ONE (08:00)
[2020-07-01] MEDS: FAMOTIDINE 20 MG TAB PO SCH ×2 (08:30→17:04)
[2020-07-01] MEDS: GLIPIZIDE 5 MG TAB PO SCH ×2 (08:30→17:04)
[2020-07-01] MEDS: CARVEDILOL 3.125 MG TAB PO SCH ×2 (08:51→17:05)
[2020-07-01] MEDS: LORAZEPAM 0.5 MG TAB PO SCH (08:51)
[2020-07-01] MEDS: LEVETIRACETAM 500 MG TAB PO SCH ×2 (08:51→17:05)
[2020-07-01] MEDS: FUROSEMIDE 40 MG TAB PO SCH (08:51)
[2020-07-01] MEDS: DOCUSATE SODIUM 100 MG CAP PO SCH ×2 (08:51→17:04)
[2020-07-01] MEDS: FERROUS SULFATE 325 MG TAB PO SCH (08:51)
[2020-07-01] MEDS: LISINOPRIL 2.5 MG TAB PO SCH (08:52)
[2020-07-01] MEDS: ATORVASTATIN 40 MG TAB PO SCH (08:52)
[2020-07-01] MEDS: OXCARBAZEPINE 300 MG TAB PO SCH ×2 (08:52→17:05)
[2020-07-01] MEDS: LINACLOTIDE 145 MCG CAPSULE PO SCH (08:52)
[2020-07-01] MEDS: ASCORBIC ACID 500 MG TAB PO SCH (08:52)
[2020-07-01] MEDS: ENOXAPARIN INJ 80 MG/0.8 ML SYR SC SCH ×2 (10:20→21:28)
[2020-07-01 10:45] LABS: CREATINE KINASE MB 0.6 ng/mL (0-5.0)
[2020-07-01] MEDS ORDERED: SIMETHICONE 80 MG CHEW PO PRN (11:00)
[2020-07-01] MEDS: PREGABALIN 25 MG CAP PO SCH (21:28)
[2020-07-02] VITALS (8 sets, daily range): BP systolic 101–116; BP diastolic 52–72
[2020-07-02] MEDS: LEVOTHYROXINE SODIUM 25 MCG TABLET PO SCH (06:07)
[2020-07-02 06:24] LABS: BASOPHILS # (AUTO) 0.1 (0.0-0.1); BASOPHILS % 1.3 % (0.0-1.0); EOSINOPHILS # (AUTO) 0.3 (0.0-0.4); EOSINOPHILS % 3.5 % (0.0-6.0); HEMATOCRIT 36.6 % (34.2-44.1); HEMOGLOBIN 12.1 g/dL (12.0-16.0); LYMPHOCYTES # (AUTO) 2.4 (1.0-3.2); LYMPHOCYTES % 33.9 % (18.0-39.1); MEAN CORPUSCULAR HGB CONC 33.1 g/dL (31-35); MEAN CORPUSCULAR VOLUME 81.7 fL (81-99); MONOCYTES # (AUTO) 1.1 (0.2-0.8); MONOCYTES % 15.3 % (4.4-11.3); NEUTROPHILS # (AUTO) 3.2 (2.1-6.9); NEUTROPHILS % 45.6 % (38.7-80.0); PLATELET COUNT 277 x10e3/uL (140-360); RED BLOOD COUNT 4.48 x10e6/uL (3.6-5.1); RED CELL DISTRIBUTION WIDTH 14.8 % (11.7-14.4)
[2020-07-02 07:00] LABS: CLARITY,URINE CLOUDY (CLEAR); COLOR,URINE YELLOW (YELLOW); KETONES,URINE NEGATIVE (NEGATIVE); LEUKOCYTE ESTERASE ,URINE SMALL (NEGATIVE); NITRITE,URINE NEGATIVE (NEGATIVE); PROTEIN,URINE DIPSTICK NEGATIVE (NEGATIVE); URINE UROBILINOGEN 0.2 mg/dL (0.2 - 1)
[2020-07-02 07:17] LABS: BACTERIA,URINE RARE /HPF; EPITHELIAL CELLS,URINE FEW /LPF
[2020-07-02 07:23] LABS: CALCIUM 8.9 mg/dL (8.4-10.2); CREATININE, SERUM 1.08 mg/dL (0.57-1.11)
[2020-07-02] MEDS: CARVEDILOL 3.125 MG TAB PO SCH ×2 (08:30→15:58)
[2020-07-02] MEDS: LINACLOTIDE 145 MCG CAPSULE PO SCH (08:30)
[2020-07-02] MEDS: FAMOTIDINE 20 MG TAB PO SCH ×2 (08:30→15:58)
[2020-07-02] MEDS: GLIPIZIDE 5 MG TAB PO SCH ×2 (08:30→15:58)
[2020-07-02] MEDS: LISINOPRIL 2.5 MG TAB PO SCH (08:30)
[2020-07-02] MEDS: ATORVASTATIN 40 MG TAB PO SCH (08:30)
[2020-07-02] MEDS: DOCUSATE SODIUM 100 MG CAP PO SCH ×2 (08:30→15:58)
[2020-07-02] MEDS: LEVETIRACETAM 500 MG TAB PO SCH ×2 (08:30→15:58)
[2020-07-02] MEDS: FERROUS SULFATE 325 MG TAB PO SCH (08:30)
[2020-07-02] MEDS: ASCORBIC ACID 500 MG TAB PO SCH (08:30)
[2020-07-02] MEDS: LORAZEPAM 0.5 MG TAB PO SCH (08:30)
[2020-07-02] MEDS: OXCARBAZEPINE 300 MG TAB PO SCH ×2 (08:30→15:58)
[2020-07-02] MEDS: FUROSEMIDE 40 MG TAB PO SCH (08:30)
[2020-07-02] MEDS ORDERED: POTASSIUM CHLORIDE 20 MEQ TAB CR PO NR (10:05)
[2020-07-02] MEDS: ENOXAPARIN INJ 80 MG/0.8 ML SYR SC SCH ×2 (11:41→21:31)
[2020-07-02] MEDS: POTASSIUM CHLORIDE 20 MEQ TAB CR PO SCH (11:41)
[2020-07-02] MEDS ORDERED: PEG (High)/E-LYTE SOLN 4,000 ML BTL PO ONE (19:00)
[2020-07-02] MEDS ORDERED: DEXTROSE 50% SYRINGE 50 ML IV PRN (20:45)
[2020-07-02] MEDS: INSULIN LISPRO 100 UNIT/1 ML 3ML VIAL SQ SCH (21:30)
[2020-07-02] MEDS: PREGABALIN 25 MG CAP PO SCH (21:31)
[2020-07-03] VITALS (8 sets, daily range): BP systolic 87–119; BP diastolic 52–75
[2020-07-03] MEDS: LEVOTHYROXINE SODIUM 25 MCG TABLET PO SCH (05:22)
[2020-07-03 07:22] LABS: BASOPHILS % 0.6 % (0.0-1.0); EOSINOPHILS # (AUTO) 0.2 (0.0-0.4); EOSINOPHILS % 2.9 % (0.0-6.0); HEMATOCRIT 37.1 % (34.2-44.1); HEMOGLOBIN 12.2 g/dL (12.0-16.0); LYMPHOCYTES # (AUTO) 2.5 (1.0-3.2); LYMPHOCYTES % 36.5 % (18.0-39.1); MEAN CORPUSCULAR HEMOGLOBIN 26.3 pg (28-32); MEAN CORPUSCULAR HGB CONC 32.9 g/dL (31-35); MEAN CORPUSCULAR VOLUME 80.1 fL (81-99); MONOCYTES # (AUTO) 0.9 (0.2-0.8); MONOCYTES % 13.4 % (4.4-11.3); NEUTROPHILS # (AUTO) 3.2 (2.1-6.9); NEUTROPHILS % 46.3 % (38.7-80.0); PLATELET COUNT 280 x10e3/uL (140-360); RED BLOOD COUNT 4.63 x10e6/uL (3.6-5.1); RED CELL DISTRIBUTION WIDTH 14.8 % (11.7-14.4)
[2020-07-03 07:38] LABS: ANION GAP 14.1 mmol/L (8-16); CALCIUM 8.3 mg/dL (8.4-10.2); CREATININE, SERUM 0.98 mg/dL (0.57-1.11); POTASSIUM 3.1 mmol/L (3.5-5.1)
[2020-07-03] MEDS ORDERED: POTASSIUM CHLORIDE 20 MEQ TAB CR PO ONE (07:53)
[2020-07-03] MEDS ORDERED: SODIUM CHLORIDE 1 GM TAB PO ONE (08:00)
[2020-07-03] MEDS: CARVEDILOL 3.125 MG TAB PO SCH ×3 (09:00→17:00)
[2020-07-03] MEDS: LISINOPRIL 2.5 MG TAB PO SCH (09:00)
[2020-07-03] MEDS: INSULIN LISPRO 100 UNIT/1 ML 3ML VIAL SQ SCH ×4 (09:05→21:09)
[2020-07-03] MEDS: POTASSIUM CHLORIDE 20 MEQ TAB CR PO SCH (09:06)
[2020-07-03] MEDS: GLIPIZIDE 5 MG TAB PO SCH ×2 (09:06→17:23)
[2020-07-03] MEDS: FERROUS SULFATE 325 MG TAB PO SCH (09:06)
[2020-07-03] MEDS: FAMOTIDINE 20 MG TAB PO SCH ×2 (09:06→17:23)
[2020-07-03] MEDS: DOCUSATE SODIUM 100 MG CAP PO SCH ×2 (09:07→17:23)
[2020-07-03] MEDS: LORAZEPAM 0.5 MG TAB PO SCH (09:07)
[2020-07-03] MEDS: FUROSEMIDE 40 MG TAB PO SCH (09:10)
[2020-07-03] MEDS: ATORVASTATIN 40 MG TAB PO SCH ×2 (09:10→21:09)
[2020-07-03] MEDS: LEVETIRACETAM 500 MG TAB PO SCH ×2 (09:10→17:23)
[2020-07-03] MEDS: LINACLOTIDE 145 MCG CAPSULE PO SCH (09:10)
[2020-07-03] MEDS: OXCARBAZEPINE 300 MG TAB PO SCH ×2 (09:12→17:23)
[2020-07-03] MEDS: ASCORBIC ACID 500 MG TAB PO SCH (09:12)
[2020-07-03] MEDS: ENOXAPARIN INJ 80 MG/0.8 ML SYR SC SCH ×2 (09:13→21:09)
[2020-07-03] MEDS: PREGABALIN 25 MG CAP PO SCH (21:06)
[2020-07-04] VITALS (8 sets, daily range): BP systolic 100–140; BP diastolic 48–78
[2020-07-04] MEDS: LEVOTHYROXINE SODIUM 25 MCG TABLET PO SCH (05:19)
[2020-07-04 05:24] LABS: BASOPHILS # (AUTO) 0.1 (0.0-0.1); BASOPHILS % 0.9 % (0.0-1.0); EOSINOPHILS # (AUTO) 0.2 (0.0-0.4); EOSINOPHILS % 3.4 % (0.0-6.0); HEMATOCRIT 35.4 % (34.2-44.1); HEMOGLOBIN 11.8 g/dL (12.0-16.0); LYMPHOCYTES # (AUTO) 2.6 (1.0-3.2); LYMPHOCYTES % 38.1 % (18.0-39.1); MEAN CORPUSCULAR HEMOGLOBIN 27.1 pg (28-32); MEAN CORPUSCULAR HGB CONC 33.3 g/dL (31-35); MEAN CORPUSCULAR VOLUME 81.4 fL (81-99); MONOCYTES # (AUTO) 0.9 (0.2-0.8); MONOCYTES % 12.7 % (4.4-11.3); NEUTROPHILS % 44.2 % (38.7-80.0); PLATELET COUNT 263 x10e3/uL (140-360); RED BLOOD COUNT 4.35 x10e6/uL (3.6-5.1); RED CELL DISTRIBUTION WIDTH 14.9 % (11.7-14.4)
[2020-07-04 05:45] LABS: ANION GAP 12.5 mmol/L (8-16); CALCIUM 8.5 mg/dL (8.4-10.2); CREATININE, SERUM 0.95 mg/dL (0.57-1.11); POTASSIUM 3.5 mmol/L (3.5-5.1)
[2020-07-04] MEDS: INSULIN LISPRO 100 UNIT/1 ML 3ML VIAL SQ SCH ×4 (07:30→21:30)
[2020-07-04] MEDS: FAMOTIDINE 20 MG TAB PO SCH ×2 (11:15→17:40)
[2020-07-04] MEDS: CEFTRIAXONE SOD 1 GM/NS 50 ML 50 ML IV SCH (11:15)
[2020-07-04] MEDS: GLIPIZIDE 5 MG TAB PO SCH ×2 (11:15→17:40)
[2020-07-04] MEDS: LORAZEPAM 0.5 MG TAB PO SCH (11:16)
[2020-07-04] MEDS: FERROUS SULFATE 325 MG TAB PO SCH (11:16)
[2020-07-04] MEDS: DOCUSATE SODIUM 100 MG CAP PO SCH ×2 (11:16→17:40)
[2020-07-04] MEDS: CARVEDILOL 3.125 MG TAB PO SCH ×2 (11:16→17:00)
[2020-07-04] MEDS: POTASSIUM CHLORIDE 20 MEQ TAB CR PO SCH (11:17)
[2020-07-04] MEDS: LEVETIRACETAM 500 MG TAB PO SCH ×2 (11:17→17:40)
[2020-07-04] MEDS: OXCARBAZEPINE 300 MG TAB PO SCH ×2 (11:18→17:40)
[2020-07-04] MEDS: ENOXAPARIN INJ 80 MG/0.8 ML SYR SC SCH ×2 (11:21→21:28)
[2020-07-04] MEDS: ASCORBIC ACID 500 MG TAB PO SCH (11:21)
[2020-07-04] MEDS ORDERED: SODIUM CHLORIDE 0.9% 250ML 250 ML ONE (11:21)
[2020-07-04] MEDS: LISINOPRIL 2.5 MG TAB PO SCH (11:22)
[2020-07-04] MEDS: FUROSEMIDE 40 MG TAB PO SCH (11:22)
[2020-07-04] MEDS: LINACLOTIDE 145 MCG CAPSULE PO SCH (11:22)
[2020-07-04] MEDS: POLYETHYLENE GLYCOL 3350 17 GM PACK PO PRN ×2 (11:27→21:21)
[2020-07-04] MEDS: ATORVASTATIN 40 MG TAB PO SCH (21:21)
[2020-07-04] MEDS: PREGABALIN 25 MG CAP PO SCH (21:21)
[2020-07-05] VITALS: BP 104/51
[2020-07-05 04:00] VITALS: BP 109/68
[2020-07-05] MEDS: LEVOTHYROXINE SODIUM 25 MCG TABLET PO SCH (05:27)
[2020-07-05 05:31] LABS: BASOPHILS # (AUTO) 0.1 (0.0-0.1); BASOPHILS % 0.8 % (0.0-1.0); EOSINOPHILS # (AUTO) 0.3 (0.0-0.4); EOSINOPHILS % 4.6 % (0.0-6.0); HEMATOCRIT 37.7 % (34.2-44.1); LYMPHOCYTES # (AUTO) 2.6 (1.0-3.2); LYMPHOCYTES % 35.3 % (18.0-39.1); MEAN CORPUSCULAR HEMOGLOBIN 26.5 pg (28-32); MEAN CORPUSCULAR HGB CONC 31.8 g/dL (31-35); MEAN CORPUSCULAR VOLUME 83.2 fL (81-99); MONOCYTES # (AUTO) 0.9 (0.2-0.8); MONOCYTES % 12.2 % (4.4-11.3); NEUTROPHILS # (AUTO) 3.4 (2.1-6.9); NEUTROPHILS % 46.5 % (38.7-80.0); PLATELET COUNT 266 x10e3/uL (140-360); RED BLOOD COUNT 4.53 x10e6/uL (3.6-5.1)
[2020-07-05 05:56] LABS: ALBUMIN 3.1 g/dL (3.5-5.0); ALBUMIN/GLOBULIN RATIO 0.9 (0.8-2.0); ANION GAP 12.9 mmol/L (8-16); CALCIUM 8.5 mg/dL (8.4-10.2); CREATININE, SERUM 0.89 mg/dL (0.57-1.11); POTASSIUM 3.9 mmol/L (3.5-5.1)
[2020-07-05] MEDS: INSULIN LISPRO 100 UNIT/1 ML 3ML VIAL SQ SCH ×3 (07:30→16:57)
[2020-07-05] MEDS ORDERED: LASIX40 MG PO (08:06)
[2020-07-05] MEDS ORDERED: KLOR-CON M2020 MEQ PO (08:06)
[2020-07-05 08:32] VITALS: BP 91/75
[2020-07-05] MEDS: CEFTRIAXONE SOD 1 GM/NS 50 ML 50 ML IV SCH (08:37)
[2020-07-05] MEDS: GLIPIZIDE 5 MG TAB PO SCH ×2 (08:37→16:44)
[2020-07-05] MEDS: FUROSEMIDE 40 MG TAB PO SCH (08:37)
[2020-07-05] MEDS: FERROUS SULFATE 325 MG TAB PO SCH (08:37)
[2020-07-05] MEDS: LEVETIRACETAM 500 MG TAB PO SCH ×2 (08:37→16:44)
[2020-07-05] MEDS: LORAZEPAM 0.5 MG TAB PO SCH (08:37)
[2020-07-05] MEDS: CARVEDILOL 3.125 MG TAB PO SCH ×2 (08:37→16:44)
[2020-07-05] MEDS: FAMOTIDINE 20 MG TAB PO SCH ×2 (08:37→16:44)
[2020-07-05] MEDS: LINACLOTIDE 145 MCG CAPSULE PO SCH (08:37)
[2020-07-05] MEDS: POTASSIUM CHLORIDE 20 MEQ TAB CR PO SCH (08:37)
[2020-07-05] MEDS: DOCUSATE SODIUM 100 MG CAP PO SCH ×2 (08:37→16:44)
[2020-07-05] MEDS: ASCORBIC ACID 500 MG TAB PO SCH (08:38)
[2020-07-05] MEDS: LISINOPRIL 2.5 MG TAB PO SCH (08:38)
[2020-07-05] MEDS: OXCARBAZEPINE 300 MG TAB PO SCH ×2 (08:38→16:44)
[2020-07-05 08:39] VITALS: BP 107/81
[2020-07-05] MEDS: ENOXAPARIN INJ 80 MG/0.8 ML SYR SC SCH (09:37)
[2020-07-05] MEDS ORDERED: BACTRIM DS TAB1 EACH PO (11:45)
[2020-07-05 16:00] VITALS: BP 106/52
== END 2020-07-05 17:40 | DRG 641 ==
LOC: ER 10:10 → ERHOLD 11:29 → MED/SURG2 13:18 → MED/SURG 13:58
PROVIDERS: ADMIT Internal Medicine; ATTEND Internal Medicine
DX: E87.6 Hypokalemia (principal); N39.0 Urinary tract infection, site not specified; I13.0 Hypertensive heart and chronic kidney disease with heart failure and stage 1 through stage 4 chronic kidney disease, or unspecified chronic kidney disease; Z20.822 Contact with and (suspected) exposure to COVID-19; I50.22 Chronic systolic (congestive) heart failure; E11.22 Type 2 diabetes mellitus with diabetic chronic kidney disease; N18.30 Chronic kidney disease, stage 3 unspecified; E03.9 Hypothyroidism, unspecified; E78.5 Hyperlipidemia, unspecified; I48.0 Paroxysmal atrial fibrillation; Z79.01 Long term (current) use of anticoagulants; K21.9 Gastro-esophageal reflux disease without esophagitis; Z95.810 Presence of automatic (implantable) cardiac defibrillator; I69.320 Aphasia following cerebral infarction; I69.322 Dysarthria following cerebral infarction; F03.90 Unspecified dementia, unspecified severity, without behavioral disturbance, psychotic disturbance, mood disturbance, and anxiety; D64.9 Anemia, unspecified; B96.20 Unspecified Escherichia coli [E. coli] as the cause of diseases classified elsewhere
CPT/HCPCS: 36415; 71045; 74150; 80048; 80053; 81001; 82550; 82553; 82948; 83036; 83690; 83735; 83880; 84100; 84132; 84484; 85025; 87086; 87186; 93005; 93306; 93970; 97139; 99251; 99284; J0696; J1650; J3480; J7050; U0002

== ENCOUNTER 2020-07-19 12:41 | Inpatient (IN) | payer MEDICARE, BC ==
[~2020-07-19] VITALS: Ht 162.6 cm; Wt 68.9 kg
[~2020-07-19 12:41] MED LIST changes: +ATIVAN0.5 MG PO; +KLOR-CON M2020 MEQ PO; +LEVOTHYROXINE25 MCG PO; +LISINOPRIL2.5 MG PO; +MECLIZINE HCL12.5 MG PO
[2020-07-19] MEDS ORDERED: TETANUS/DIPHTHERIA TOX ADULT 0.5 ML SYR IM ONE (14:00)
[2020-07-19 14:27] LABS: BASOPHILS # (AUTO) 0.1 (0.0-0.1); BASOPHILS % 0.4 % (0.0-1.0); EOSINOPHILS % 0.2 % (0.0-6.0); HEMOGLOBIN 12.9 g/dL (12.0-16.0); LYMPHOCYTES # (AUTO) 1.2 (1.0-3.2); LYMPHOCYTES % 9.1 % (18.0-39.1); MEAN CORPUSCULAR HEMOGLOBIN 26.6 pg (28-32); MEAN CORPUSCULAR HGB CONC 33.9 g/dL (31-35); MEAN CORPUSCULAR VOLUME 78.4 fL (81-99); MONOCYTES # (AUTO) 1.2 (0.2-0.8); MONOCYTES % 9.3 % (4.4-11.3); NEUTROPHILS # (AUTO) 10.2 (2.1-6.9); NEUTROPHILS % 80.3 % (38.7-80.0); PLATELET COUNT 276 x10e3/uL (140-360); RED BLOOD COUNT 4.85 x10e6/uL (3.6-5.1); RED CELL DISTRIBUTION WIDTH 16.2 % (11.7-14.4)
[2020-07-19 14:34] LABS: INR 0.95; PROTHROMBIN TIME 13.2 seconds (11.9-14.5)
[2020-07-19 14:41] LABS: ALBUMIN 3.6 g/dL (3.5-5.0); ANION GAP 18.8 mmol/L (8-16); CALCIUM 8.9 mg/dL (8.4-10.2); CREATININE, SERUM 1.61 mg/dL (0.57-1.11)
[2020-07-19 14:44] LABS: POTASSIUM 2.8 mmol/L (3.5-5.1)
[2020-07-19 15:21] LABS: CLARITY,URINE CLEAR (CLEAR); COLOR,URINE YELLOW (YELLOW); KETONES,URINE NEGATIVE (NEGATIVE); LEUKOCYTE ESTERASE ,URINE TRACE (NEGATIVE); NITRITE,URINE NEGATIVE (NEGATIVE); PROTEIN,URINE DIPSTICK NEGATIVE (NEGATIVE); URINE UROBILINOGEN 0.2 mg/dL (0.2 - 1)
[2020-07-19 15:33] LABS: BACTERIA,URINE MANY /HPF; RBC,URINE 0-5 /HPF (0-5); WBC,URINE (MAN) 0-5 /HPF (0-5)
[2020-07-19] MEDS ORDERED: POTASSIUM CHLORIDE 10MEQ/100ML 100 ML IV ONE (17:30)
[2020-07-19 17:50] VITALS: BP 132/59
[2020-07-19 17:58] VITALS: BP 132/59
[2020-07-19] MEDS ORDERED: DEXTROSE 50% SYRINGE 50 ML IV PRN (18:00)
[2020-07-19 18:06] VITALS: BP 132/59
[2020-07-19] MEDS ORDERED: HYDRALAZINE HCL 20 MG/ML VIAL IV PRN (18:30)
[2020-07-19] MEDS ORDERED: ONDANSETRON HCL INJ 2MG/ML 2ML 2 MG/ML VIAL IV PRN (18:30)
[2020-07-19] MEDS ORDERED: ACETAMINOPHEN 325 MG TAB PO PRN (18:30)
[2020-07-19] MEDS ORDERED: POTASSIUM CHLORIDE 20MEQ/100ML 200 ML IV ONE (18:30)
[2020-07-19] MEDS ORDERED: POLYETHYLENE GLYCOL 3350 17 GM PACK PO PRN (18:30)
[2020-07-19 20:00] VITALS: BP 106/62
[2020-07-19] MEDS: PREGABALIN 25 MG CAP PO SCH (20:38)
[2020-07-19] MEDS: PANTOPRAZOLE SOD 40 MG TABEC PO SCH (20:38)
[2020-07-19] MEDS: CEFTRIAXONE SOD 1 GM in SODIUM CHLORIDE 0.9% 50ML 50 ML IV SCH (20:38)
[2020-07-19] MEDS ORDERED: SODIUM CHLORIDE 0.9% 500ML 500 ML ONE (20:44)
[2020-07-19 21:00] VITALS: BP 106/62
[2020-07-19] MEDS: INSULIN LISPRO 100 UNIT/1 ML 3ML VIAL SQ SCH (21:13)
[2020-07-19] MEDS ORDERED: POTASSIUM CHLORIDE 20MEQ/100ML 100 ML IV SCH (22:30)
[2020-07-19] MEDS: POTASSIUM CHLORIDE 20MEQ/100ML 100 ML IV SCH (23:22)
[2020-07-20] VITALS (8 sets, daily range): BP systolic 92–106; BP diastolic 43–59
[2020-07-20] MEDS: POTASSIUM CHLORIDE 20MEQ/100ML 100 ML IV SCH (02:21)
[2020-07-20] MEDS: LEVOTHYROXINE SODIUM 25 MCG TABLET PO SCH (05:03)
[2020-07-20 05:22] LABS: BASOPHILS # (AUTO) 0.1 (0.0-0.1); BASOPHILS % 0.5 % (0.0-1.0); EOSINOPHILS # (AUTO) 0.2 (0.0-0.4); EOSINOPHILS % 1.6 % (0.0-6.0); HEMATOCRIT 36.3 % (34.2-44.1); HEMOGLOBIN 12.6 g/dL (12.0-16.0); LYMPHOCYTES # (AUTO) 1.9 (1.0-3.2); MEAN CORPUSCULAR HEMOGLOBIN 27.5 pg (28-32); MEAN CORPUSCULAR HGB CONC 34.7 g/dL (31-35); MEAN CORPUSCULAR VOLUME 79.1 fL (81-99); MONOCYTES # (AUTO) 1.2 (0.2-0.8); MONOCYTES % 12.9 % (4.4-11.3); NEUTROPHILS # (AUTO) 5.8 (2.1-6.9); NEUTROPHILS % 63.6 % (38.7-80.0); PLATELET COUNT 252 x10e3/uL (140-360); RED BLOOD COUNT 4.59 x10e6/uL (3.6-5.1); RED CELL DISTRIBUTION WIDTH 16.8 % (11.7-14.4)
[2020-07-20 05:52] LABS: ANION GAP 18.2 mmol/L (8-16); CALCIUM 8.6 mg/dL (8.4-10.2); CREATININE, SERUM 1.27 mg/dL (0.57-1.11); POTASSIUM 3.2 mmol/L (3.5-5.1)
[2020-07-20] MEDS: INSULIN LISPRO 100 UNIT/1 ML 3ML VIAL SQ SCH ×4 (07:30→21:00)
[2020-07-20] MEDS: ASCORBIC ACID 500 MG TAB PO SCH (08:42)
[2020-07-20] MEDS: ATORVASTATIN 40 MG TAB PO SCH (08:42)
[2020-07-20] MEDS: LEVETIRACETAM 500 MG TAB PO SCH ×2 (08:42→16:19)
[2020-07-20] MEDS: OXCARBAZEPINE 300 MG TAB PO SCH ×2 (08:42→16:19)
[2020-07-20] MEDS: LORAZEPAM 0.5 MG TAB PO SCH (08:42)
[2020-07-20] MEDS ORDERED: FUROSEMIDE 40 MG TAB PO SCH (09:00)
[2020-07-20] MEDS ORDERED: POTASSIUM CHLORIDE 20 MEQ TAB CR PO SCH (09:00)
[2020-07-20] MEDS ORDERED: POTASSIUM CHLORIDE 10MEQ EA PO ONE (10:55)
[2020-07-20] MEDS: HYDROCODONE/APAP 5MG-325MG TAB PO PRN (11:32)
[2020-07-20] MEDS ORDERED: SODIUM CHLORIDE 0.9% 250ML 250 ML ONE (20:58)
[2020-07-20] MEDS: PANTOPRAZOLE SOD 40 MG TABEC PO SCH (21:21)
[2020-07-20] MEDS: PREGABALIN 25 MG CAP PO SCH (21:21)
[2020-07-20] MEDS: CEFTRIAXONE SOD 1 GM in SODIUM CHLORIDE 0.9% 50ML 50 ML IV SCH (21:22)
[2020-07-21] VITALS (8 sets, daily range): BP systolic 104–122; BP diastolic 51–66
[2020-07-21 04:59] LABS: BASOPHILS # (AUTO) 0.1 (0.0-0.1); BASOPHILS % 0.6 % (0.0-1.0); EOSINOPHILS # (AUTO) 0.2 (0.0-0.4); EOSINOPHILS % 2.8 % (0.0-6.0); HEMATOCRIT 34.2 % (34.2-44.1); HEMOGLOBIN 11.6 g/dL (12.0-16.0); LYMPHOCYTES % 24.1 % (18.0-39.1); MEAN CORPUSCULAR HEMOGLOBIN 26.5 pg (28-32); MEAN CORPUSCULAR HGB CONC 33.9 g/dL (31-35); MEAN CORPUSCULAR VOLUME 78.1 fL (81-99); MONOCYTES % 12.1 % (4.4-11.3); NEUTROPHILS % 59.9 % (38.7-80.0); PLATELET COUNT 225 x10e3/uL (140-360); RED BLOOD COUNT 4.38 x10e6/uL (3.6-5.1); RED CELL DISTRIBUTION WIDTH 16.6 % (11.7-14.4)
[2020-07-21 05:20] LABS: ALBUMIN/GLOBULIN RATIO 0.9 (0.8-2.0); ANION GAP 16.1 mmol/L (8-16); CALCIUM 8.3 mg/dL (8.4-10.2); CREATININE, SERUM 1.21 mg/dL (0.57-1.11); POTASSIUM 3.1 mmol/L (3.5-5.1)
[2020-07-21] MEDS: LEVOTHYROXINE SODIUM 25 MCG TABLET PO SCH (05:48)
[2020-07-21] MEDS: INSULIN LISPRO 100 UNIT/1 ML 3ML VIAL SQ SCH ×4 (07:30→22:30)
[2020-07-21] MEDS: ASCORBIC ACID 500 MG TAB PO SCH (09:00)
[2020-07-21] MEDS: ATORVASTATIN 40 MG TAB PO SCH (09:00)
[2020-07-21] MEDS: LORAZEPAM 0.5 MG TAB PO SCH (09:00)
[2020-07-21] MEDS: LEVETIRACETAM 500 MG TAB PO SCH ×2 (09:18→16:25)
[2020-07-21] MEDS: OXCARBAZEPINE 300 MG TAB PO SCH ×2 (09:20→16:25)
[2020-07-21] MEDS ORDERED: POTASSIUM CHLORIDE 20MEQ/100ML 200 ML IV ONE (11:00)
[2020-07-21] MEDS ORDERED: SODIUM CHLORIDE 0.9% 250ML 250 ML ONE (14:57)
[2020-07-21] MEDS ORDERED: VANCOMYCIN 1GM/NS 250 ML 250 ML IV ONE (18:30)
[2020-07-21] MEDS: CEFTRIAXONE SOD 1 GM in SODIUM CHLORIDE 0.9% 50ML 50 ML IV SCH (22:30)
[2020-07-21] MEDS: PREGABALIN 25 MG CAP PO SCH (22:30)
[2020-07-21] MEDS: PANTOPRAZOLE SOD 40 MG TABEC PO SCH (22:30)
[2020-07-21] MEDS: HYDROCODONE/APAP 5MG-325MG TAB PO PRN (22:35)
[2020-07-22] VITALS (17 sets, daily range): BP systolic 90–133; BP diastolic 42–79
[2020-07-22] MEDS: LEVOTHYROXINE SODIUM 25 MCG TABLET PO SCH (05:06)
[2020-07-22 06:04] LABS: BASOPHILS # (AUTO) 0.1 (0.0-0.1); BASOPHILS % 0.8 % (0.0-1.0); EOSINOPHILS # (AUTO) 0.4 (0.0-0.4); EOSINOPHILS % 4.8 % (0.0-6.0); HEMATOCRIT 35.6 % (34.2-44.1); HEMOGLOBIN 11.6 g/dL (12.0-16.0); LYMPHOCYTES # (AUTO) 2.2 (1.0-3.2); LYMPHOCYTES % 28.2 % (18.0-39.1); MEAN CORPUSCULAR HEMOGLOBIN 26.5 pg (28-32); MEAN CORPUSCULAR HGB CONC 32.6 g/dL (31-35); MEAN CORPUSCULAR VOLUME 81.5 fL (81-99); MONOCYTES % 12.8 % (4.4-11.3); PLATELET COUNT 206 x10e3/uL (140-360); RED BLOOD COUNT 4.37 x10e6/uL (3.6-5.1); RED CELL DISTRIBUTION WIDTH 16.2 % (11.7-14.4)
[2020-07-22 06:27] LABS: ALBUMIN 2.7 g/dL (3.5-5.0); ALBUMIN/GLOBULIN RATIO 0.8 (0.8-2.0); ANION GAP 13.3 mmol/L (8-16); CALCIUM 8.1 mg/dL (8.4-10.2); CREATININE, SERUM 0.94 mg/dL (0.57-1.11); POTASSIUM 3.3 mmol/L (3.5-5.1)
[2020-07-22] MEDS: SODIUM CHLORIDE 0.9% 1000ML 1,000 ML IV SCH ×2 (07:00)
[2020-07-22] MEDS ORDERED: FENTANYL CITRATE/PF 100MCG/2 ML INJ ONE (07:23)
[2020-07-22] MEDS ORDERED: VANCOMYCIN 1GM/NS 250 ML 250 ML IV ONE (07:30)
[2020-07-22] MEDS: INSULIN LISPRO 100 UNIT/1 ML 3ML VIAL SQ SCH ×4 (07:30→20:43)
[2020-07-22] MEDS: OXCARBAZEPINE 300 MG TAB PO SCH ×2 (09:00→16:59)
[2020-07-22] MEDS: ATORVASTATIN 40 MG TAB PO SCH (09:00)
[2020-07-22] MEDS: LORAZEPAM 0.5 MG TAB PO SCH (09:00)
[2020-07-22] MEDS: LEVETIRACETAM 500 MG TAB PO SCH ×2 (09:00→16:57)
[2020-07-22] MEDS: ASCORBIC ACID 500 MG TAB PO SCH (09:00)
[2020-07-22] MEDS ORDERED: SODIUM CHLORIDE 0.9% 1000ML 1,000 ML IV SCH (09:15)
[2020-07-22] MEDS ORDERED: ONDANSETRON HCL INJ 2MG/ML 2ML 2 MG/ML VIAL IV PRN (09:15)
[2020-07-22] MEDS: VANCOMYCIN 1GM/NS 250 ML 250 ML IV SCH ×2 (09:15→20:36)
[2020-07-22 09:30] LABS: MAGNESIUM 2.1 MG/DL (1.3-2.1); PHOSPHORUS 2.8 MG/DL (2.3-4.7)
[2020-07-22] MEDS ORDERED: KCL 20MEQ/.9 SOD CHL 1,000 ML IV ONE (10:30)
[2020-07-22] MEDS ORDERED: DEXAMETHASONE SOD PHOS INJ 4 MG/ML VIAL ONE (12:24)
[2020-07-22] MEDS ORDERED: ONDANSETRON HCL INJ 2MG/ML 2ML 2 MG/ML VIAL ONE (12:24)
[2020-07-22] MEDS ORDERED: LIDOCAINE HCL 2% LOCAL INJ 5 ML SDV VIAL INJ ONE (12:24)
[2020-07-22] MEDS ORDERED: SEVOFLURANE INHAL SOLN 250 ML PEN BTL ONE (12:24)
[2020-07-22] MEDS ORDERED: PROPOFOL IV EMULSION 10 MG/ML 20 ML VIAL ONE (12:24)
[2020-07-22] MEDS: MORPHINE SULFATE INJ 2 MG/ML SYR IV PRN (14:03)
[2020-07-22] MEDS: ASPIRIN 325 MG TAB PO SCH (16:56)
[2020-07-22] MEDS: HYDROCODONE/APAP 5MG-325MG TAB PO PRN (17:25)
[2020-07-22] MEDS: PANTOPRAZOLE SOD 40 MG TABEC PO SCH (20:36)
[2020-07-22] MEDS: PREGABALIN 25 MG CAP PO SCH (20:36)
[2020-07-22] MEDS: CEFTRIAXONE SOD 1 GM in SODIUM CHLORIDE 0.9% 50ML 50 ML IV SCH (22:04)
[2020-07-23] VITALS (8 sets, daily range): BP systolic 99–133; BP diastolic 52–90
[2020-07-23] MEDS: HYDROCODONE/APAP 5MG-325MG TAB PO PRN ×2 (05:37→18:07)
[2020-07-23] MEDS: LEVOTHYROXINE SODIUM 25 MCG TABLET PO SCH (05:38)
[2020-07-23 06:40] LABS: BASOPHILS % 0.3 % (0.0-1.0); EOSINOPHILS # (AUTO) 0.3 (0.0-0.4); EOSINOPHILS % 3.3 % (0.0-6.0); HEMATOCRIT 32.3 % (34.2-44.1); HEMOGLOBIN 10.5 g/dL (12.0-16.0); LYMPHOCYTES # (AUTO) 2.1 (1.0-3.2); MEAN CORPUSCULAR HEMOGLOBIN 26.3 pg (28-32); MEAN CORPUSCULAR HGB CONC 32.5 g/dL (31-35); MEAN CORPUSCULAR VOLUME 80.8 fL (81-99); MONOCYTES % 11.6 % (4.4-11.3); NEUTROPHILS # (AUTO) 5.5 (2.1-6.9); NEUTROPHILS % 61.4 % (38.7-80.0); PLATELET COUNT 203 x10e3/uL (140-360); RED CELL DISTRIBUTION WIDTH 16.5 % (11.7-14.4)
[2020-07-23 07:01] LABS: ALANINE AMINOTRANSFERASE 16 IU/L (0-55); ALBUMIN 2.5 g/dL (3.5-5.0); ALBUMIN/GLOBULIN RATIO 0.8 (0.8-2.0); ALKALINE PHOSPHATASE 79 IU/L (40-150); ANION GAP 10.7 mmol/L (8-16); CALCIUM 8.2 mg/dL (8.4-10.2); CARBON DIOXIDE 27 mmol/L (22-29); CHLORIDE 100 mmol/L (98-107); POTASSIUM 3.7 mmol/L (3.5-5.1); SODIUM 134 mmol/L (136-145)
[2020-07-23] MEDS: INSULIN LISPRO 100 UNIT/1 ML 3ML VIAL SQ SCH ×4 (07:30→21:24)
[2020-07-23 07:45] LABS: BLOOD UREA NITROGEN 37 mg/dL (7-26); BUN/CREATININE RATIO 48 (6-25); CREATININE, SERUM 0.77 mg/dL (0.57-1.11); EST GLOMERULAR FILTRATION RATE > 60 ML/MIN (60-); GLUCOSE 91 mg/dL (74-118)
[2020-07-23] MEDS ORDERED: VANCOMYCIN 1GM/NS 250 ML 250 ML IV SCH (08:00)
[2020-07-23] MEDS: ASCORBIC ACID 500 MG TAB PO SCH (09:00)
[2020-07-23] MEDS: LORAZEPAM 0.5 MG TAB PO SCH (09:00)
[2020-07-23] MEDS: OXCARBAZEPINE 300 MG TAB PO SCH ×2 (09:00→17:00)
[2020-07-23] MEDS: ASPIRIN 325 MG TAB PO SCH ×2 (09:00→17:00)
[2020-07-23] MEDS: ATORVASTATIN 40 MG TAB PO SCH (09:00)
[2020-07-23] MEDS: LEVETIRACETAM 500 MG TAB PO SCH ×2 (09:00→17:00)
[2020-07-23] MEDS: CARVEDILOL 3.125 MG TAB PO SCH (09:00)
[2020-07-23] MEDS ORDERED: SODIUM CHLORIDE 0.9% 250ML 250 ML ONE (09:47)
[2020-07-23] MEDS ORDERED: ATIVAN0.5 MG PO ×2 (11:10→11:12)
[2020-07-23] MEDS ORDERED: CEFTRIAXONE SOD 1 GM VIAL ONE (21:13)
[2020-07-23] MEDS ORDERED: SODIUM CHLORIDE 0.9% 50ML 50 ML ONE (21:17)
[2020-07-23] MEDS: PANTOPRAZOLE SOD 40 MG TABEC PO SCH (21:23)
[2020-07-23] MEDS: CEFTRIAXONE SOD 1 GM in SODIUM CHLORIDE 0.9% 50ML 50 ML IV SCH (21:23)
[2020-07-23] MEDS: PREGABALIN 25 MG CAP PO SCH (21:23)
[2020-07-24] VITALS (10 sets, daily range): BP systolic 95–133; BP diastolic 50–68
[2020-07-24 05:13] LABS: BASOPHILS % 0.5 % (0.0-1.0); EOSINOPHILS # (AUTO) 0.5 (0.0-0.4); EOSINOPHILS % 5.6 % (0.0-6.0); HEMATOCRIT 30.4 % (34.2-44.1); HEMOGLOBIN 9.9 g/dL (12.0-16.0); LYMPHOCYTES # (AUTO) 2.8 (1.0-3.2); LYMPHOCYTES % 34.1 % (18.0-39.1); MEAN CORPUSCULAR HEMOGLOBIN 26.5 pg (28-32); MEAN CORPUSCULAR HGB CONC 32.6 g/dL (31-35); MEAN CORPUSCULAR VOLUME 81.5 fL (81-99); MONOCYTES # (AUTO) 0.9 (0.2-0.8); MONOCYTES % 11.1 % (4.4-11.3); NEUTROPHILS # (AUTO) 3.9 (2.1-6.9); NEUTROPHILS % 48.2 % (38.7-80.0); PLATELET COUNT 186 x10e3/uL (140-360); RED BLOOD COUNT 3.73 x10e6/uL (3.6-5.1); RED CELL DISTRIBUTION WIDTH 16.7 % (11.7-14.4)
[2020-07-24 05:29] LABS: ANION GAP 11.8 mmol/L (8-16); BLOOD UREA NITROGEN 32 mg/dL (7-26); BUN/CREATININE RATIO 41 (6-25); CALCIUM 7.8 mg/dL (8.4-10.2); CARBON DIOXIDE 27 mmol/L (22-29); CHLORIDE 97 mmol/L (98-107); CREATININE, SERUM 0.78 mg/dL (0.57-1.11); EST GLOMERULAR FILTRATION RATE > 60 ML/MIN (60-); GLUCOSE 110 mg/dL (74-118); POTASSIUM 3.8 mmol/L (3.5-5.1); SODIUM 132 mmol/L (136-145)
[2020-07-24] MEDS: LEVOTHYROXINE SODIUM 25 MCG TABLET PO SCH (06:00)
[2020-07-24] MEDS: INSULIN LISPRO 100 UNIT/1 ML 3ML VIAL SQ SCH ×4 (07:30→20:42)
[2020-07-24] MEDS: ASPIRIN 325 MG TAB PO SCH ×2 (08:21→17:11)
[2020-07-24] MEDS: CARVEDILOL 3.125 MG TAB PO SCH (08:21)
[2020-07-24] MEDS: ASCORBIC ACID 500 MG TAB PO SCH (08:22)
[2020-07-24] MEDS: OXCARBAZEPINE 300 MG TAB PO SCH ×2 (08:22→17:11)
[2020-07-24] MEDS: LEVETIRACETAM 500 MG TAB PO SCH ×2 (08:22→17:11)
[2020-07-24] MEDS: LORAZEPAM 0.5 MG TAB PO SCH (08:22)
[2020-07-24] MEDS ORDERED: ATORVASTATIN 40 MG TAB PO SCH (21:00)
[2020-07-24] MEDS ORDERED: CEFTRIAXONE SOD 1 GM VIAL ONE (21:01)
[2020-07-24] MEDS: PANTOPRAZOLE SOD 40 MG TABEC PO SCH (21:03)
[2020-07-24] MEDS: CEFTRIAXONE SOD 1 GM in SODIUM CHLORIDE 0.9% 50ML 50 ML IV SCH (21:03)
[2020-07-24] MEDS: PREGABALIN 25 MG CAP PO SCH (21:03)
[2020-07-24] MEDS ORDERED: SODIUM CHLORIDE 0.9% 50ML 50 ML ONE (21:05)
[2020-07-25 00:36] VITALS: BP 127/65
[2020-07-25 05:20] VITALS: BP 117/80
[2020-07-25] MEDS: LEVOTHYROXINE SODIUM 25 MCG TABLET PO SCH (06:08)
[2020-07-25] MEDS: MORPHINE SULFATE INJ 2 MG/ML SYR IV PRN (07:12)
[2020-07-25] MEDS: INSULIN LISPRO 100 UNIT/1 ML 3ML VIAL SQ SCH ×3 (07:26→16:30)
[2020-07-25 08:06] VITALS: BP 111/55
[2020-07-25 08:09] VITALS: BP 111/55
[2020-07-25] MEDS: LEVETIRACETAM 500 MG TAB PO SCH ×2 (08:48→17:22)
[2020-07-25] MEDS: OXCARBAZEPINE 300 MG TAB PO SCH ×2 (08:48→17:22)
[2020-07-25] MEDS: LORAZEPAM 0.5 MG TAB PO SCH (08:48)
[2020-07-25] MEDS: ASCORBIC ACID 500 MG TAB PO SCH (08:48)
[2020-07-25] MEDS: ASPIRIN 325 MG TAB PO SCH ×2 (08:48→17:22)
[2020-07-25] MEDS: HYDROCODONE/APAP 5MG-325MG TAB PO PRN (08:49)
[2020-07-25] MEDS: CARVEDILOL 3.125 MG TAB PO SCH (08:50)
[2020-07-25 11:49] VITALS: BP 100/57
[2020-07-25] MEDS ORDERED: TRAMADOL HCL 50 MG TAB PO PRN (14:00)
[2020-07-25] MEDS ORDERED: ACETAMINOPHEN/CODEINE 300MG - 30MG TAB PO PRN (14:00)
[2020-07-25] MEDS ORDERED: HYDROCODONE/APAP 10MG-325MG TAB PO PRN (14:00)
[2020-07-25] MEDS ORDERED: CEFTRIAXONE1 GM IV (14:42)
[2020-07-25] MEDS ORDERED: HYDROCODON-ACE1 EAC9 PO (14:42)
[2020-07-25] MEDS ORDERED: ATIVAN0.5 MG PO (14:42)
[2020-07-25] MEDS ORDERED: TYLENOL # 31 EA PO (14:42)
[2020-07-25] MEDS ORDERED: ULTRAM 50MG50 MG PO (14:42)
[2020-07-25] MEDS ORDERED: Insulin Lispro SQ (14:42)
[2020-07-25 17:35] VITALS: BP 107/52
== END 2020-07-25 18:44 | disposition home or self-care (01) | DRG 853 ==
LOC: ER 12:52 → ERHOLD 15:33 → MED/SURG 17:44 → ICU 07-22 10:10 → MED/SURG 07-22 22:43
PROVIDERS: ADMIT Internal Medicine; ATTEND Internal Medicine
PROC: 0QS634Z Reposition Right Upper Femur with Internal Fixation Device, Percutaneous Approach (ICD-10-PCS; principal; 2020-07-22 07:30)
DX: A41.51 Sepsis due to Escherichia coli [E. coli] (principal); S72.011A Unspecified intracapsular fracture of right femur, initial encounter for closed fracture; N39.0 Urinary tract infection, site not specified; Z16.24 Resistance to multiple antibiotics; E87.1 Hypo-osmolality and hyponatremia; I50.22 Chronic systolic (congestive) heart failure; R65.20 Severe sepsis without septic shock; F03.90 Unspecified dementia, unspecified severity, without behavioral disturbance, psychotic disturbance, mood disturbance, and anxiety; Z79.01 Long term (current) use of anticoagulants; I12.9 Hypertensive chronic kidney disease with stage 1 through stage 4 chronic kidney disease, or unspecified chronic kidney disease; E11.22 Type 2 diabetes mellitus with diabetic chronic kidney disease; G40.909 Epilepsy, unspecified, not intractable, without status epilepticus; Z95.810 Presence of automatic (implantable) cardiac defibrillator; Z90.49 Acquired absence of other specified parts of digestive tract; E78.5 Hyperlipidemia, unspecified; I25.10 Atherosclerotic heart disease of native coronary artery without angina pectoris; Z95.1 Presence of aortocoronary bypass graft; Z88.0 Allergy status to penicillin; Z88.8 Allergy status to other drugs, medicaments and biological substances; I69.320 Aphasia following cerebral infarction; N18.30 Chronic kidney disease, stage 3 unspecified; I48.0 Paroxysmal atrial fibrillation; E03.9 Hypothyroidism, unspecified; Z82.49 Family history of ischemic heart disease and other diseases of the circulatory system; Z80.9 Family history of malignant neoplasm, unspecified; E87.6 Hypokalemia; W19.XXXA Unspecified fall, initial encounter; Z79.84 Long term (current) use of oral hypoglycemic drugs; G31.01 Pick's disease; F02.80 Dementia in other diseases classified elsewhere, unspecified severity, without behavioral disturbance, psychotic disturbance, mood disturbance, and anxiety
CPT/HCPCS: 36415; 70450; 71045; 72125; 72170; 76000; 80048; 80053; 81001; 82550; 82948; 83735; 84100; 84484; 85025; 85610; 87086; 87186; 90714; 93880; 93971; 96361; 96372; 97139; 99285; C1713; C1769; J0696; J1100; J2001; J2270; J2405; J3010; J3370; J3480; J7030; J7040; J7050; U0002

== ENCOUNTER 2020-10-16 08:43 | Inpatient (IN) | payer MEDICARE, BC ==
[~2020-10-16] VITALS: Ht 162.6 cm; Wt 68.9 kg
[~2020-10-16 08:43] MED LIST changes: +CEFTRIAXONE1 GM IV; +HYDROCODON-ACE1 EAC9 PO; +Insulin Lispro SQ; +TYLENOL # 31 EA PO; +ULTRAM 50MG50 MG PO
[2020-10-16] MEDS ORDERED: SODIUM CHLORIDE 0.9% 1000ML 1,000 ML IV STA (09:17)
[2020-10-16] MEDS ORDERED: PANTOPRAZOLE 40 MG 10ML VIAL IV STA (09:17)
[2020-10-16 10:13] LABS: BASOPHILS # (AUTO) 0.1 (0.0-0.1); BASOPHILS % 0.6 % (0.0-1.0); EOSINOPHILS # (AUTO) 0.1 (0.0-0.4); EOSINOPHILS % 0.8 % (0.0-6.0); HEMATOCRIT 38.8 % (34.2-44.1); LYMPHOCYTES # (AUTO) 1.3 (1.0-3.2); LYMPHOCYTES % 15.1 % (18.0-39.1); MEAN CORPUSCULAR HEMOGLOBIN 27.8 pg (28-32); MEAN CORPUSCULAR HGB CONC 33.5 g/dL (31-35); MEAN CORPUSCULAR VOLUME 82.9 fL (81-99); MONOCYTES # (AUTO) 0.8 (0.2-0.8); MONOCYTES % 9.4 % (4.4-11.3); NEUTROPHILS # (AUTO) 6.5 (2.1-6.9); NEUTROPHILS % 73.5 % (38.7-80.0); PLATELET COUNT 268 x10e3/uL (140-360); RED BLOOD COUNT 4.68 x10e6/uL (3.6-5.1); RED CELL DISTRIBUTION WIDTH 15.6 % (11.7-14.4)
[2020-10-16 10:32] LABS: INR 0.88; PROTHROMBIN TIME 12.5 seconds (11.9-14.5)
[2020-10-16 10:33] LABS: PARTIAL THROMBOPLASTIN TIME 24.7 seconds (23.8-35.5)
[2020-10-16 10:36] LABS: ALBUMIN 3.8 g/dL (3.5-5.0); ALBUMIN/GLOBULIN RATIO 0.9 (0.8-2.0); ANION GAP 23.4 mmol/L (8-16); CALCIUM 9.6 mg/dL (8.4-10.2); CREATININE, SERUM 2.13 mg/dL (0.57-1.11); MAGNESIUM 2.2 MG/DL (1.3-2.1); POTASSIUM 3.4 mmol/L (3.5-5.1)
[2020-10-16 10:42] LABS: CREATINE KINASE MB 0.8 ng/mL (0-5.0)
[2020-10-16] MEDS ORDERED: SODIUM CHLORIDE 0.9% 50ML 0 ML ONE (10:53)
[2020-10-16] MEDS ORDERED: IOPAMIDOL 370 MG/ML 200 ML INFUS..BTL INJ ONE (10:54)
[2020-10-16 13:45] LABS: CLARITY,URINE SL CLOUDY (CLEAR); COLOR,URINE YELLOW (YELLOW); KETONES,URINE NEGATIVE (NEGATIVE); LEUKOCYTE ESTERASE ,URINE TRACE (NEGATIVE); NITRITE,URINE NEGATIVE (NEGATIVE); PROTEIN,URINE DIPSTICK TRACE (NEGATIVE); URINE UROBILINOGEN 0.2 mg/dL (0.2 - 1)
[2020-10-16 14:02] LABS: BACTERIA,URINE MANY /HPF; EPITHELIAL CELLS,URINE RARE /LPF; RBC,URINE >50 /HPF (0-5)
[2020-10-16 14:03] LABS: TRANSITIONAL EPI CELLS,URINE RARE
[2020-10-16] MEDS ORDERED: ONDANSETRON HCL INJ 2MG/ML 2ML 2 MG/ML VIAL IV PRN (14:45)
[2020-10-16] MEDS: CEFEPIME 2 GM/NS 0.9% 100 ML 100 ML IV SCH (15:25)
[2020-10-16 16:17] VITALS: BP 124/65
[2020-10-16] MEDS: SODIUM CHLORIDE 0.9% 1000ML 1,000 ML IV SCH (16:22)
[2020-10-16 16:24] VITALS: BP 124/65
[2020-10-16 16:31] VITALS: BP 121/65
[2020-10-16] MEDS ORDERED: DEXTROSE 50% SYRINGE 50 ML IV PRN (17:00)
[2020-10-16] MEDS ORDERED: HYDRALAZINE HCL 20 MG/ML VIAL IV PRN (17:00)
[2020-10-16] MEDS ORDERED: LISINOPRIL5 MG PO (18:41)
[2020-10-16] MEDS ORDERED: KEPPRA750 MG PO ×2 (18:41)
[2020-10-16] MEDS ORDERED: MECLIZINE HCL12.5 MG PO (18:41)
[2020-10-16] MEDS ORDERED: LEVOTHYROXINE50 MCG PO (18:41)
[2020-10-16] MEDS ORDERED: PANTOPRAZOLE SO40 MG PO (18:41)
[2020-10-16] MEDS ORDERED: KLOR-CON M2020 MEQ PO (18:41)
[2020-10-16] MEDS ORDERED: CLOPIDOGREL75 MG PO (18:41)
[2020-10-16] MEDS ORDERED: OXCARBAZEPINE150 MG PO (18:41)
[2020-10-16] MEDS ORDERED: ONDANSETRON ODT4 MG PO (18:41)
[2020-10-16] MEDS ORDERED: FUROSEMIDE40 MG PO ×2 (18:41)
[2020-10-16] MEDS ORDERED: ATIVAN1 MG PO (18:41)
[2020-10-16] MEDS ORDERED: LINZESS290 MCG PO (18:41)
[2020-10-16] MEDS ORDERED: METOLAZONE5 MG PO (18:41)
[2020-10-16] MEDS ORDERED: FERROUS SULFAT325 M1 PO (18:41)
[2020-10-16] MEDS ORDERED: GLIPIZIDE5 MG PO (18:41)
[2020-10-16 19:24] LABS: CREATINE KINASE MB 0.7 ng/mL (0-5.0)
[2020-10-16 20:00] VITALS: BP 100/51
[2020-10-16] MEDS: PANTOPRAZOLE 40 MG 10ML VIAL IV SCH (20:03)
[2020-10-16] MEDS: INSULIN LISPRO 100 UNIT/1 ML 3ML VIAL SQ SCH (20:27)
[2020-10-16 21:00] VITALS: BP 100/51
[2020-10-16] MEDS: ACETAMINOPHEN 325 MG TAB PO PRN (22:24)
[2020-10-17] VITALS (7 sets, daily range): BP systolic 80–103; BP diastolic 42–66
[2020-10-17] MEDS: SODIUM CHLORIDE 0.9% 1000ML 1,000 ML IV SCH ×3 (01:14→21:35)
[2020-10-17] MEDS: ACETAMINOPHEN 325 MG TAB PO PRN ×2 (05:43→17:24)
[2020-10-17 05:59] LABS: BASOPHILS # (AUTO) 0.1 (0.0-0.1); BASOPHILS % 0.8 % (0.0-1.0); EOSINOPHILS # (AUTO) 0.2 (0.0-0.4); HEMOGLOBIN 11.4 g/dL (12.0-16.0); LYMPHOCYTES # (AUTO) 2.7 (1.0-3.2); LYMPHOCYTES % 31.7 % (18.0-39.1); MEAN CORPUSCULAR HEMOGLOBIN 27.5 pg (28-32); MEAN CORPUSCULAR HGB CONC 33.5 g/dL (31-35); MEAN CORPUSCULAR VOLUME 81.9 fL (81-99); MONOCYTES # (AUTO) 0.9 (0.2-0.8); MONOCYTES % 10.3 % (4.4-11.3); NEUTROPHILS # (AUTO) 4.6 (2.1-6.9); NEUTROPHILS % 54.7 % (38.7-80.0); PLATELET COUNT 236 x10e3/uL (140-360); RED BLOOD COUNT 4.15 x10e6/uL (3.6-5.1); RED CELL DISTRIBUTION WIDTH 15.4 % (11.7-14.4)
[2020-10-17 06:20] LABS: ALBUMIN 3.2 g/dL (3.5-5.0); ANION GAP 17.6 mmol/L (8-16); CALCIUM 8.8 mg/dL (8.4-10.2); CREATININE, SERUM 1.22 mg/dL (0.57-1.11)
[2020-10-17 06:22] LABS: POTASSIUM 2.6 mmol/L (3.5-5.1)
[2020-10-17 06:43] LABS: CREATINE KINASE MB 0.8 ng/mL (0-5.0)
[2020-10-17] MEDS: INSULIN LISPRO 100 UNIT/1 ML 3ML VIAL SQ SCH ×4 (07:30→21:00)
[2020-10-17] MEDS ORDERED: POTASSIUM CHLORIDE 20 MEQ TAB CR PO ONE ×2 (07:36→10:00)
[2020-10-17] MEDS: PANTOPRAZOLE 40 MG 10ML VIAL IV SCH ×2 (09:29→21:35)
[2020-10-17] MEDS: CEFEPIME 2 GM/NS 0.9% 100 ML 100 ML IV SCH (14:10)
[2020-10-17] MEDS: OXCARBAZEPINE 300 MG TAB PO SCH (17:01)
[2020-10-17] MEDS ORDERED: PEG (High)/E-LYTE SOLN 4,000 ML BTL PO ONE (19:45)
[2020-10-17] MEDS ORDERED: BISACODYL 5 MG TAB EC PO ONE (19:45)
[2020-10-17] MEDS ORDERED: METOLAZONE 5 MG TAB PO SCH (21:00)
[2020-10-17] MEDS ORDERED: LEVETIRACETAM 1500 MG PO SCH (21:00)
[2020-10-17] MEDS: LEVETIRACETAM 500 MG TAB PO SCH (21:35)
[2020-10-18] VITALS (7 sets, daily range): BP systolic 102–122; BP diastolic 54–81
[2020-10-18] MEDS: LEVOTHYROXINE SODIUM 25 MCG TABLET PO SCH (05:40)
[2020-10-18 05:46] LABS: BASOPHILS # (AUTO) 0.1 (0.0-0.1); EOSINOPHILS # (AUTO) 0.3 (0.0-0.4); EOSINOPHILS % 4.1 % (0.0-6.0); HEMOGLOBIN 10.5 g/dL (12.0-16.0); LYMPHOCYTES % 29.1 % (18.0-39.1); MEAN CORPUSCULAR HEMOGLOBIN 28.1 pg (28-32); MEAN CORPUSCULAR HGB CONC 33.9 g/dL (31-35); MEAN CORPUSCULAR VOLUME 82.9 fL (81-99); MONOCYTES # (AUTO) 0.8 (0.2-0.8); MONOCYTES % 11.7 % (4.4-11.3); NEUTROPHILS # (AUTO) 3.8 (2.1-6.9); NEUTROPHILS % 53.7 % (38.7-80.0); PLATELET COUNT 205 x10e3/uL (140-360); RED BLOOD COUNT 3.74 x10e6/uL (3.6-5.1); RED CELL DISTRIBUTION WIDTH 15.2 % (11.7-14.4)
[2020-10-18 06:18] LABS: ANION GAP 11.9 mmol/L (8-16); BLOOD UREA NITROGEN 35 mg/dL (7-26); BUN/CREATININE RATIO 45 (6-25); CALCIUM 8.3 mg/dL (8.4-10.2); CARBON DIOXIDE 28 mmol/L (22-29); CHLORIDE 101 mmol/L (98-107); CREATININE, SERUM 0.78 mg/dL (0.57-1.11); EST GLOMERULAR FILTRATION RATE > 60 ML/MIN (60-); GLUCOSE 102 mg/dL (74-118); SODIUM 138 mmol/L (136-145)
[2020-10-18 06:23] LABS: POTASSIUM 2.9 mmol/L (3.5-5.1)
[2020-10-18] MEDS: INSULIN LISPRO 100 UNIT/1 ML 3ML VIAL SQ SCH ×4 (07:30→21:30)
[2020-10-18] MEDS ORDERED: POTASSIUM CHLORIDE 20 MEQ TAB CR PO ONE (08:11)
[2020-10-18] MEDS ORDERED: POTASSIUM CHLORIDE 20MEQ/100ML 100 ML IV ONE (08:27)
[2020-10-18] MEDS ORDERED: LEVETIRACETAM 750 MG PO SCH (09:00)
[2020-10-18] MEDS ORDERED: ATORVASTATIN 40 MG TAB PO SCH (09:00)
[2020-10-18] MEDS ORDERED: LISINOPRIL 2.5 MG TAB PO SCH (09:00)
[2020-10-18] MEDS ORDERED: ATORVASTATIN 20 MG TAB PO SCH (09:00)
[2020-10-18] MEDS: SODIUM CHLORIDE 0.9% 1000ML 1,000 ML IV SCH ×2 (09:44→16:34)
[2020-10-18] MEDS: LEVETIRACETAM 500 MG TAB PO SCH ×2 (09:45→21:28)
[2020-10-18] MEDS: OXCARBAZEPINE 300 MG TAB PO SCH ×2 (09:45→17:03)
[2020-10-18] MEDS: PANTOPRAZOLE 40 MG 10ML VIAL IV SCH ×2 (09:45→21:28)
[2020-10-18] MEDS ORDERED: POVIDONE IODINE 0.05% 0.05 % ML PO ONE (13:57)
[2020-10-18] MEDS ORDERED: PROPOFOL IV EMULSION 10 MG/ML 20 ML VIAL ONE (13:57)
[2020-10-18 14:06] LABS: BLOOD UREA NITROGEN 26 mg/dL (7-26); BUN/CREATININE RATIO 34 (6-25); CALCIUM 8.3 mg/dL (8.4-10.2); CARBON DIOXIDE 28 mmol/L (22-29); CHLORIDE 103 mmol/L (98-107); CREATININE, SERUM 0.76 mg/dL (0.57-1.11); EST GLOMERULAR FILTRATION RATE > 60 ML/MIN (60-); GLUCOSE 132 mg/dL (74-118); MAGNESIUM 1.8 MG/DL (1.3-2.1); PHOSPHORUS 1.8 MG/DL (2.3-4.7); SODIUM 139 mmol/L (136-145)
[2020-10-18] MEDS: CEFEPIME 2 GM/NS 0.9% 100 ML 100 ML IV SCH (14:30)
[2020-10-19] VITALS (7 sets, daily range): BP systolic 91–115; BP diastolic 50–57
[2020-10-19] MEDS: LEVOTHYROXINE SODIUM 25 MCG TABLET PO SCH (05:25)
[2020-10-19 06:15] LABS: BASOPHILS # (AUTO) 0.1 (0.0-0.1); BASOPHILS % 0.7 % (0.0-1.0); EOSINOPHILS # (AUTO) 0.3 (0.0-0.4); HEMATOCRIT 30.4 % (34.2-44.1); HEMOGLOBIN 9.8 g/dL (12.0-16.0); LYMPHOCYTES # (AUTO) 2.4 (1.0-3.2); LYMPHOCYTES % 34.3 % (18.0-39.1); MEAN CORPUSCULAR HEMOGLOBIN 27.6 pg (28-32); MEAN CORPUSCULAR HGB CONC 32.2 g/dL (31-35); MEAN CORPUSCULAR VOLUME 85.6 fL (81-99); MONOCYTES # (AUTO) 0.8 (0.2-0.8); MONOCYTES % 11.1 % (4.4-11.3); NEUTROPHILS # (AUTO) 3.4 (2.1-6.9); NEUTROPHILS % 49.3 % (38.7-80.0); PLATELET COUNT 203 x10e3/uL (140-360); RED BLOOD COUNT 3.55 x10e6/uL (3.6-5.1); RED CELL DISTRIBUTION WIDTH 15.5 % (11.7-14.4)
[2020-10-19 06:32] LABS: ANION GAP 9.9 mmol/L (8-16); BLOOD UREA NITROGEN 20 mg/dL (7-26); BUN/CREATININE RATIO 28 (6-25); CALCIUM 8.1 mg/dL (8.4-10.2); CARBON DIOXIDE 27 mmol/L (22-29); CHLORIDE 107 mmol/L (98-107); CREATININE, SERUM 0.72 mg/dL (0.57-1.11); EST GLOMERULAR FILTRATION RATE > 60 ML/MIN (60-); GLUCOSE 95 mg/dL (74-118); POTASSIUM 3.9 mmol/L (3.5-5.1); SODIUM 140 mmol/L (136-145)
[2020-10-19 06:55] LABS: PHOSPHORUS 1.7 MG/DL (2.3-4.7)
[2020-10-19] MEDS ORDERED: POTASSIUM CHL 40 MEQ in SODIUM CHLORIDE 0.9% 1000ML 1,000 ML IV SCH (07:00)
[2020-10-19 07:06] LABS: THYROID STIMULATING HORMONE 2.373 uIU/mL (0.350-4.940)
[2020-10-19] MEDS: INSULIN LISPRO 100 UNIT/1 ML 3ML VIAL SQ SCH ×4 (07:30→20:58)
[2020-10-19] MEDS: LEVETIRACETAM 500 MG TAB PO SCH ×2 (10:29→20:52)
[2020-10-19] MEDS: OXCARBAZEPINE 300 MG TAB PO SCH ×2 (10:29→16:45)
[2020-10-19] MEDS: ASPIRIN 81 MG ENTERIC COATED PO SCH (10:30)
[2020-10-19] MEDS: MEROPENEM 500MG/ NS 50ML 50 ML IV SCH ×2 (11:07→16:45)
[2020-10-19] MEDS: IRON SUCROSE 100 MG in SODIUM CHLORIDE 0.9% 100 ML 100 ML IV SCH (13:03)
[2020-10-20] VITALS (7 sets, daily range): BP systolic 114–134; BP diastolic 56–73
[2020-10-20] MEDS: MEROPENEM 500MG/ NS 50ML 50 ML IV SCH ×3 (01:30→17:42)
[2020-10-20] MEDS: LEVOTHYROXINE SODIUM 25 MCG TABLET PO SCH (05:26)
[2020-10-20 06:16] LABS: BASOPHILS % 0.6 % (0.0-1.0); EOSINOPHILS # (AUTO) 0.3 (0.0-0.4); HEMATOCRIT 28.6 % (34.2-44.1); HEMOGLOBIN 9.3 g/dL (12.0-16.0); LYMPHOCYTES # (AUTO) 2.5 (1.0-3.2); LYMPHOCYTES % 36.8 % (18.0-39.1); MEAN CORPUSCULAR HEMOGLOBIN 27.9 pg (28-32); MEAN CORPUSCULAR HGB CONC 32.5 g/dL (31-35); MEAN CORPUSCULAR VOLUME 85.9 fL (81-99); MONOCYTES # (AUTO) 0.7 (0.2-0.8); MONOCYTES % 10.2 % (4.4-11.3); NEUTROPHILS # (AUTO) 3.2 (2.1-6.9); PLATELET COUNT 185 x10e3/uL (140-360); RED BLOOD COUNT 3.33 x10e6/uL (3.6-5.1); RED CELL DISTRIBUTION WIDTH 15.6 % (11.7-14.4)
[2020-10-20 06:44] LABS: ANION GAP 10.1 mmol/L (8-16); BLOOD UREA NITROGEN 16 mg/dL (7-26); BUN/CREATININE RATIO 24 (6-25); CALCIUM 7.9 mg/dL (8.4-10.2); CARBON DIOXIDE 24 mmol/L (22-29); CHLORIDE 108 mmol/L (98-107); CREATININE, SERUM 0.66 mg/dL (0.57-1.11); EST GLOMERULAR FILTRATION RATE > 60 ML/MIN (60-); GLUCOSE 91 mg/dL (74-118); POTASSIUM 4.1 mmol/L (3.5-5.1); SODIUM 138 mmol/L (136-145)
[2020-10-20] MEDS: INSULIN LISPRO 100 UNIT/1 ML 3ML VIAL SQ SCH ×4 (07:30→20:51)
[2020-10-20] MEDS: ASPIRIN 81 MG ENTERIC COATED PO SCH (08:33)
[2020-10-20] MEDS: PANTOPRAZOLE SOD 40 MG TABEC PO SCH (08:33)
[2020-10-20] MEDS: LEVETIRACETAM 500 MG TAB PO SCH ×2 (08:34→20:55)
[2020-10-20] MEDS: OXCARBAZEPINE 300 MG TAB PO SCH ×2 (08:34→17:30)
[2020-10-20] MEDS: IRON SUCROSE 100 MG in SODIUM CHLORIDE 0.9% 100 ML 100 ML IV SCH (13:16)
[2020-10-20] MEDS ORDERED: ONDANSETRON HCL 4 MG ORAL DISINTEGRATING TAB PO PRN (13:45)
[2020-10-21] VITALS (9 sets, daily range): BP systolic 94–123; BP diastolic 48–67
[2020-10-21] MEDS: MEROPENEM 500MG/ NS 50ML 50 ML IV SCH ×3 (01:37→16:28)
[2020-10-21] MEDS: LEVOTHYROXINE SODIUM 25 MCG TABLET PO SCH (05:45)
[2020-10-21] MEDS: INSULIN LISPRO 100 UNIT/1 ML 3ML VIAL SQ SCH ×4 (07:25→21:43)
[2020-10-21] MEDS: PANTOPRAZOLE SOD 40 MG TABEC PO SCH (09:08)
[2020-10-21] MEDS: OXCARBAZEPINE 300 MG TAB PO SCH ×2 (09:09→16:26)
[2020-10-21] MEDS: ASPIRIN 81 MG ENTERIC COATED PO SCH (09:09)
[2020-10-21] MEDS: LEVETIRACETAM 500 MG TAB PO SCH ×2 (09:09→21:55)
[2020-10-21] MEDS ORDERED: SODIUM CHLORIDE 0.9% 250ML 250 ML ONE (09:25)
[2020-10-21] MEDS: IRON SUCROSE 100 MG in SODIUM CHLORIDE 0.9% 100 ML 100 ML IV SCH (10:31)
[2020-10-22] VITALS: BP_SYST 110; BP_SYST 115; BP_DIAS 48; BP_DIAS 79
[2020-10-22] MEDS: MEROPENEM 500MG/ NS 50ML 50 ML IV SCH ×2 (02:04→08:09)
[2020-10-22 04:00] VITALS: BP 117/62
[2020-10-22] MEDS: LEVOTHYROXINE SODIUM 25 MCG TABLET PO SCH (05:31)
[2020-10-22 07:24] LABS: BASOPHILS # (AUTO) 0.1 (0.0-0.1); BASOPHILS % 0.7 % (0.0-1.0); EOSINOPHILS # (AUTO) 0.4 (0.0-0.4); EOSINOPHILS % 5.9 % (0.0-6.0); HEMATOCRIT 31.1 % (34.2-44.1); LYMPHOCYTES % 29.3 % (18.0-39.1); MEAN CORPUSCULAR HEMOGLOBIN 27.7 pg (28-32); MEAN CORPUSCULAR HGB CONC 32.2 g/dL (31-35); MEAN CORPUSCULAR VOLUME 86.1 fL (81-99); MONOCYTES # (AUTO) 0.8 (0.2-0.8); MONOCYTES % 11.7 % (4.4-11.3); NEUTROPHILS # (AUTO) 3.5 (2.1-6.9); NEUTROPHILS % 51.8 % (38.7-80.0); PLATELET COUNT 203 x10e3/uL (140-360); RED BLOOD COUNT 3.61 x10e6/uL (3.6-5.1); RED CELL DISTRIBUTION WIDTH 15.8 % (11.7-14.4)
[2020-10-22] MEDS: INSULIN LISPRO 100 UNIT/1 ML 3ML VIAL SQ SCH ×2 (07:30→11:30)
[2020-10-22 07:48] LABS: ANION GAP 12.4 mmol/L (8-16); BLOOD UREA NITROGEN 10 mg/dL (7-26); BUN/CREATININE RATIO 17 (6-25); CALCIUM 8.3 mg/dL (8.4-10.2); CARBON DIOXIDE 23 mmol/L (22-29); CHLORIDE 108 mmol/L (98-107); EST GLOMERULAR FILTRATION RATE > 60 ML/MIN (60-); GLUCOSE 84 mg/dL (74-118); POTASSIUM 4.4 mmol/L (3.5-5.1); SODIUM 139 mmol/L (136-145)
[2020-10-22 07:59] VITALS: BP 109/67
[2020-10-22] MEDS: PANTOPRAZOLE SOD 40 MG TABEC PO SCH (08:08)
[2020-10-22] MEDS: LEVETIRACETAM 500 MG TAB PO SCH (08:08)
[2020-10-22] MEDS: ASPIRIN 81 MG ENTERIC COATED PO SCH (08:09)
[2020-10-22] MEDS: OXCARBAZEPINE 300 MG TAB PO SCH (08:09)
[2020-10-22 09:54] VITALS: BP 109/67
[2020-10-22 09:56] VITALS: BP 109/67
[2020-10-22] MEDS: IRON SUCROSE 100 MG in SODIUM CHLORIDE 0.9% 100 ML 100 ML IV SCH (10:09)
[2020-10-22 12:19] VITALS: BP 100/48
== END 2020-10-22 16:14 | disposition home or self-care (01) | DRG 377 ==
LOC: ER 09:42 → ERHOLD 14:47 → MED/SURG3 15:47
PROVIDERS: ADMIT Internal Medicine; ATTEND Internal Medicine
PROC: 0DJD8ZZ Inspection of Lower Intestinal Tract, Via Natural or Artificial Opening Endoscopic (ICD-10-PCS; principal; 2020-10-18 12:30)
DX: K57.33 Diverticulitis of large intestine without perforation or abscess with bleeding (principal); N17.0 Acute kidney failure with tubular necrosis; N39.0 Urinary tract infection, site not specified; Z16.12 Extended spectrum beta lactamase (ESBL) resistance; D62 Acute posthemorrhagic anemia; Z20.822 Contact with and (suspected) exposure to COVID-19; E87.6 Hypokalemia; I25.10 Atherosclerotic heart disease of native coronary artery without angina pectoris; Z95.1 Presence of aortocoronary bypass graft; M19.90 Unspecified osteoarthritis, unspecified site; E86.0 Dehydration; B96.20 Unspecified Escherichia coli [E. coli] as the cause of diseases classified elsewhere; F01.50 Vascular dementia, unspecified severity, without behavioral disturbance, psychotic disturbance, mood disturbance, and anxiety
CPT/HCPCS: 36415; 45378; 70450; 71045; 74176; 80048; 80053; 81001; 82270; 82550; 82553; 82607; 82746; 82948; 83036; 83540; 83690; 83735; 83880; 84100; 84443; 84466; 84484; 85025; 85610; 85730; 86850; 86900; 87086; 87186; 93005; 96361; 96372; 97139; 99284; J1756; J2405; J3480; J7030; J7050; Q9967; U0002

== ENCOUNTER 2022-01-03 12:56 | Emergency (ER) | payer MEDICARE, BC, OTHER ==
[~2022-01-03] VITALS: Ht 162.6 cm; Wt 68.9 kg
[~2022-01-03 12:56] MED LIST changes: +ATIVAN1 MG PO; +CLOPIDOGREL75 MG PO; +FUROSEMIDE40 MG PO; +KEPPRA750 MG PO; +LEVOTHYROXINE50 MCG PO; +LINZESS290 MCG PO; +LISINOPRIL5 MG PO; +METOLAZONE5 MG PO; +ONDANSETRON ODT4 MG PO; +OXCARBAZEPINE150 MG PO
[2022-01-03] MEDS ORDERED: ACETAMINOPHEN 325 MG TAB PO ONE (14:00)
[2022-01-03] MEDS ORDERED: TETANUS/DIPHTHERIA TOX ADULT 0.5 ML SYR IM ONE (14:00)
== END 2022-01-03 20:06 | disposition other institution (70) ==
LOC: ER 13:09
DX: S00.03XA Contusion of scalp, initial encounter (principal); S50.311A Abrasion of right elbow, initial encounter; R94.8 Abnormal results of function studies of other organs and systems; W01.0XXA Fall on same level from slipping, tripping and stumbling without subsequent striking against object, initial encounter; Y92.89 Other specified places as the place of occurrence of the external cause; Z20.822 Contact with and (suspected) exposure to COVID-19; I10 Essential (primary) hypertension; E11.9 Type 2 diabetes mellitus without complications; E78.5 Hyperlipidemia, unspecified; K21.9 Gastro-esophageal reflux disease without esophagitis; F41.9 Anxiety disorder, unspecified; Z86.73 Personal history of transient ischemic attack (TIA), and cerebral infarction without residual deficits
CPT/HCPCS: 70450; 72125; 73080; 73521; 90471; 90714; 99284; U0002